=== PATIENT | male | born 1945 | race Caucasian/White ===

== ENCOUNTER → 2019-05-19 13:45 | Outpatient (CLI) | payer MEDICARE, OTHER, SELFPAY ==
[2019-05-19 13:19] VITALS: BMI 23.2
--- NOTE | 2019-05-19 13:47 | CT_ITS ---
STUDY: LOW DOSE CT LUNG CANCER SCREENING REASON FOR EXAM: Male, 74 years old. PT STATED SMOKER 3/4-1 PPD X 59 YEARS. RADIATION DOSAGE (If Supplied By Facility): CTDIvol = ( 2.55 ) mGy, DLP = ( 95.70 ) mGycm TECHNIQUE: No contrast was administered. Low dose technique was utilized (average mAS-38 and kVp 120). 1.25 mm axial source images with a slice interval of 1.25-mm were reconstructed in lung windows. 2.5 mm axial source images with a slice interval of 2.5-mm were reconstructed in lung windows. 5.0 mm axial source images with a slice interval of 5.0-mm were reconstructed in soft tissue windows. Nodule measured using lung windows on PACS and/or independent workstation with automated measurement of minimum and maximum diameter. Nodule measurement reported as average diameter rounded to the nearest whole number. Growth is defined as an increase ins size of greater than 1.5 mm. COMPARISON: None. NODULES: No suspicious nodules are seen. Emphysema: Hyperinflation. Emphysematous changes throughout both lungs worse in the upper lobes. Findings suggestive of a bilateral apical scarring more prominent on the right side. Mild linear scarring in the anterior left upper lobe. Mild increased linear markings at the lung bases slightly more prominent on the right side suggestive of scarring. Small bilateral pleural effusions. Endobronchial lesion: None Aorta: Atherosclerotic calcification. Coronary arteries: Coronary artery calcification. Other chest and abdominal findings: Moderate sized hiatal hernia. CT/Low Dose CT Lung Screening IMPRESSION: Lung-RADS category 2 - Continue annual screening with LDCT in 12 months. IMPORTANT NOTES FOR USE: ACR Lung-RADS Version 1.0 Assessment Categories Release Date: July 13, 2013 Category: Coded 0-4 bases on nodule(s) with highest degree of suspicion. Negative screen is defined as categories 1 and 2; a positive screen is defined as categories 3 and 4. Category 3 and 4A nodules that are unchanged on interval CT should be coded as category 2, and individuals returned to screening in 12 months. Category 4X: Category 3 or 4 nodules with additional imaging findings that increase the suspicion of lung cancer, such as spiculation, GGN that doubles in size in 1 year, enlarged lymph notes, etc. Category Modifiers: S (significant finding unrelated to lung cancer) and C (prior history of treated lung cancer) may be added to the 0-4 Lung-RADS Electronically Signed: Pierre Barron, at 14:17 EST , Service support ,
== END ==
PROVIDERS: PCP Family Medicine; Referring Provider Nurse Practitioner Family; Visit Provider Nurse Practitioner Family
DX: Z12.2 Encounter for screening for malignant neoplasm of respiratory organs (principal); Z87.891 Personal history of nicotine dependence
CPT/HCPCS: G0297

== ENCOUNTER → 2020-03-24 09:18 | Outpatient (CLI) | payer MEDICARE, OTHER, SELFPAY ==
[2019-05-19 13:19] VITALS: BMI 23.2
[2020-03-24 10:35] LABS: Absolute Neutrophil Count 6.1 X10^3/uL (2.0-7.7); Basophil# 0.08 X10^3/uL; Basophil% 0.9 % (0-1); Eosinophil# 0.61 X10^3/uL; Eosinophils% 6.9 % (0-5); Hematocrit 48.6 % (40-54); Hemoglobin 15.9 g/dL (13.0-16.5); Lymphocyte % 14.8 % (19-41); Mean Corp Hgb Conc 32.7 g/dL (32-36); Mean Corpuscular Hgb 31.1 pg (27.0-32.0); Mean Corpuscular Volume 94.9 fL (80-94); Monocyte# 0.66 X10^3/uL; Monocyte% 7.5 % (0-10); NRBC Flagged by Analyzer 0 % (0-5); Neutrophil # 6.11 X10^3/uL (2.7-7.7); Neutrophil % 69.6 % (47-70); Platelet Count 298 K/mm3 (150-450); RBC Distribution Width CV 13.6 % (11.6-14.6); RBC Distribution Width SD 47.6 fl (35.1-43.9); Red Blood Count 5.12 M/mm3 (4.6-6.2); White Blood Count 8.8 K/mm3 (4.4-11.0)
[2020-03-24 11:27] LABS: AST(SGOT) 15 U/L (15-37); Alanine Aminotransfer ALT/SGPT 28 U/L (16-61); Albumin, Serum 3.8 g/dL (3.2-5.0); Alkaline Phosphatase 93 U/L (45-117); Anion Gap 5 (5-15); BUN 13 mg/dL (7-18); Bilirubin, Direct 0.17 mg/dL (0.00-0.30); Chloride 107 mmol/L (98-107); Creatinine, Serum 0.87 mg/dL (0.70-1.30); EST Glomerular Filtration Rate 91 mL/min (>60); Est Glom Filt Rate - Afr Amer 111 mL/min (>60); Globulin 3.7 g/dL (2.2-4.2); Glucose 86 mg/dL (74-106); Potassium 3.7 mmol/L (3.5-5.1); Protein, Total 7.5 g/dL (6.4-8.2); Sodium Level 139 mmol/L (136-145)
[2020-03-29 07:07] LABS: QNTFERON TB Mitogen Value > 10.00 IU/mL (.); QNTFERON TB Nil Value 0.04 IU/mL (.); QNTFERON TB1+ Ag Value 0.07 IU/mL (.); QNTFERON TB2+ Ag Value 0.02 IU/mL (.)
[2020-03-29 16:16] LABS: QNTIFERON TB Positive Criteria Negative (Negative)
== END ==
PROVIDERS: PCP Family Medicine; Referring Provider Dermatology; Visit Provider Dermatology
DX: L30.8 Other specified dermatitis (principal); Z79.899 Other long term (current) drug therapy
CPT/HCPCS: 36415; 80048; 80076; 85025; 86480

== ENCOUNTER → 2020-06-21 14:47 | Outpatient (CLI) | payer MEDICARE, OTHER, SELFPAY ==
[2019-05-19 13:19] VITALS: BMI 23.2
[2020-06-21 14:19] VITALS: BMI 22.7
--- NOTE | 2020-06-21 14:50 | CT_ITS ---
STUDY: LOW DOSE CT LUNG CANCER SCREENING REASON FOR EXAM: Male, 75 years old. Lung cancer screening -- 43 pack year history; asymptomatic; current smoker RADIATION DOSAGE (If Supplied By Facility): CTDIvol = ( 2.38 ) mGy, DLP = ( 90.31 ) mGycm TECHNIQUE: No contrast was administered. Low dose technique was utilized (average mAS-38 and kVp 120). 1.25 mm axial source images with a slice interval of 1.25-mm were reconstructed in lung windows. 2.5 mm axial source images with a slice interval of 2.5-mm were reconstructed in lung windows. 5.0 mm axial source images with a slice interval of 5.0-mm were reconstructed in soft tissue windows. Nodule measured using lung windows on PACS and/or independent workstation with automated measurement of minimum and maximum diameter. Nodule measurement reported as average diameter rounded to the nearest whole number. Growth is defined as an increase ins size of greater than 1.5 mm. COMPARISON: 05/19/2019 NODULES: Lung windows show hyperexpanded lungs with chronic interstitial changes and emphysematous blebs throughout both lung [place]. There is stable nonspecific pleural thickening in both hemithoraces. There is no superimposed mass or nodule, no organized infiltrate or groundglass opacifications. There are calcified coronary vessels. No pleural or pericardial effusions. There degenerative bony changes Stable retrocardiac hiatal hernia No significant interval changes noted since the previous study CT/Low Dose CT Lung Screening IMPRESSION: Lung-RADS category 2 - Continue annual screening with LDCT in 12 months. IMPORTANT NOTES FOR USE: ACR Lung-RADS Version 1.1 Assessment Categories Release Date: 2018 Category: Coded 0-4 bases on nodule(s) with highest degree of suspicion. Negative screen is defined as categories 1 and 2; a positive screen is defined as categories 3 and 4. Category 3 and 4A nodules that are unchanged on interval CT should be coded as category 2, and individuals returned to screening in 12 months. Category 4X: Category 3 or 4 nodules with additional imaging findings that increase the suspicion of lung cancer, such as spiculation, GGN that doubles in size in 1 year, enlarged lymph notes, etc. Category Modifiers: S (significant finding unrelated to lung cancer) Electronically Signed: Tony Dukes MD at 15:24 EDT , Service support ,
== END ==
PROVIDERS: PCP Family Medicine; Referring Provider Nurse Practitioner Family; Visit Provider Nurse Practitioner Family
DX: Z12.2 Encounter for screening for malignant neoplasm of respiratory organs (principal); Z87.891 Personal history of nicotine dependence
CPT/HCPCS: 71271

== ENCOUNTER → 2020-06-22 08:52 | Outpatient (CLI) | payer MEDICARE, OTHER, SELFPAY ==
[2020-06-21 14:19] VITALS: BMI 22.7
[2020-06-22 10:19] LABS: Absolute Lymphocyte Count 0.88 X10^3/uL (0.83-4.51); Basophil# 0.07 X10^3/uL; Basophil% 1.2 % (0-1); Eosinophil# 0.27 X10^3/uL; Eosinophils% 4.7 % (0-5); Hematocrit 45.5 % (40-54); Hemoglobin 14.9 g/dL (13.0-16.5); Lymphocyte # 0.88 X10^3/ul (4.0); Lymphocyte % 15.3 % (19-41); Mean Corp Hgb Conc 32.7 g/dL (32-36); Mean Corpuscular Volume 97.8 fL (80-94); Mean Platelet Vol. 10.2 fl (6.2-12.0); Monocyte# 0.54 X10^3/uL; Monocyte% 9.4 % (0-10); NRBC Flagged by Analyzer 0 % (0-5); Neutrophil # 3.99 X10^3/uL (2.7-7.7); Neutrophil % 69.1 % (47-70); Platelet Count 262 K/mm3 (150-450); RBC Distribution Width CV 14.3 % (11.6-14.6); RBC Distribution Width SD 51.2 fl (35.1-43.9); Red Blood Count 4.65 M/mm3 (4.6-6.2); White Blood Count 5.8 K/mm3 (4.4-11.0)
[2020-06-22 10:46] LABS: AST(SGOT) 18 U/L (15-37); Alanine Aminotransfer ALT/SGPT 31 U/L (16-61); Albumin, Serum 3.6 g/dL (3.2-5.0); Alkaline Phosphatase 80 U/L (45-117); Anion Gap 3 (5-15); BUN 16 mg/dL (7-18); BUN/Creat Ratio 18.3 RATIO (10-20); Bilirubin, Direct 0.22 mg/dL (0.00-0.30); Chloride 107 mmol/L (98-107); Creatinine, Serum 0.87 mg/dL (0.70-1.30); EST Glomerular Filtration Rate 91 mL/min (>60); Est Glom Filt Rate - Afr Amer 110 mL/min (>60); Globulin 3.2 g/dL (2.2-4.2); Glucose 88 mg/dL (74-106); Potassium 3.7 mmol/L (3.5-5.1); Protein, Total 6.8 g/dL (6.4-8.2); Sodium Level 139 mmol/L (136-145)
== END ==
PROVIDERS: PCP Family Medicine; Referring Provider Dermatology; Visit Provider Dermatology
DX: L30.8 Other specified dermatitis (principal); Z79.899 Other long term (current) drug therapy
CPT/HCPCS: 36415; 80048; 80076; 85025

== ENCOUNTER → 2020-09-22 07:41 | Outpatient (CLI) | payer MEDICARE, OTHER, SELFPAY ==
[2020-06-21 14:19] VITALS: BMI 22.7
--- NOTE | 2020-09-22 07:42 | US_ITS ---
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 TECHNICAL QUALITY: Adequate. COMPARISON: None. FINDINGS: Liver: The liver measures 14.3 cm. There is normal echogenicity of the liver. The bile ducts are within normal limits. There is hepatic color flow. The direction of portal flow is hepatopetal. There is no demonstrated mass lesion. Gallbladder: Normal distended gallbladder. The gallbladder wall measures 2.7 mm. There is a negative sonographic Albarran''s sign. There is no pericholecystic fluid. There are multiple echogenic structures within the gallbladder, consistent with multiple tiny gallstones. The largest gallstone measures 9 mm x 10 mm x 3 mm. Common Bile Duct (C.B.D.): The common bile duct measures 5 mm. Pancreas: Normal size of the head, body and tail of the pancreas. There is normal echogenicity of the pancreas. There is no demonstrated pancreatic mass or cyst. Right Kidney: Normal size of the right kidney. The right kidney measures 12.5 cm x 5.6 cm x 6.8 cm. Normal renal cortex. The right cortex measures 1.7 cm. There is a 2.1 cm x 1.7 cm x 1.7 cm right renal cyst. There is no right hydronephrosis. IMPRESSION: Multiple small gallstones. Right renal cyst. Electronically Signed: Pierre Barron MD at 9:08 EDT , Service support , STUDY: ABDOMINAL ULTRASOUND - ELASTOGRAPHY REASON FOR VISIT: Male, 75 years old. Long-term METHOTREXATE use. TECHNIQUE: Liver stiffness measurements were obtained on a [employer] 85 ultrasound machine using a CA 1-7 probe following the SRU guidelines. 3 measurements were obtained using a 2-D-SWE method. The IQR/M was 23% suggesting a quality data set. TECHNICAL QUALITY: Adequate. COMPARISON: None. FINDINGS: Liver: There is no demonstrated mass lesion. Median liver stiffness measured 6 kPa. US/Elastography Parenchyma/Organ IMPRESSION: Liver stiffness measures 6 kPa compatible with F2 Metavir score. Electronically Signed: Pierre Barron MD at 9:11 EDT , Service support ,
--- NOTE | 2020-09-22 07:42 | US_ITS ---
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 TECHNICAL QUALITY: Adequate. COMPARISON: None. FINDINGS: Liver: The liver measures 14.3 cm. There is normal echogenicity of the liver. The bile ducts are within normal limits. There is hepatic color flow. The direction of portal flow is hepatopetal. There is no demonstrated mass lesion. Gallbladder: Normal distended gallbladder. The gallbladder wall measures 2.7 mm. There is a negative sonographic Albarran''s sign. There is no pericholecystic fluid. There are multiple echogenic structures within the gallbladder, consistent with multiple tiny gallstones. The largest gallstone measures 9 mm x 10 mm x 3 mm. Common Bile Duct (C.B.D.): The common bile duct measures 5 mm. Pancreas: Normal size of the head, body and tail of the pancreas. There is normal echogenicity of the pancreas. There is no demonstrated pancreatic mass or cyst. Right Kidney: Normal size of the right kidney. The right kidney measures 12.5 cm x 5.6 cm x 6.8 cm. Normal renal cortex. The right cortex measures 1.7 cm. There is a 2.1 cm x 1.7 cm x 1.7 cm right renal cyst. There is no right hydronephrosis. IMPRESSION: Multiple small gallstones. Right renal cyst. Electronically Signed: Pierre Barron MD at 9:08 EDT , Service support , STUDY: ABDOMINAL ULTRASOUND - ELASTOGRAPHY REASON FOR VISIT: Male, 75 years old. Long-term METHOTREXATE use. TECHNIQUE: Liver stiffness measurements were obtained on a [employer] 85 ultrasound machine using a CA 1-7 probe following the SRU guidelines. 3 measurements were obtained using a 2-D-SWE method. The IQR/M was 23% suggesting a quality data set. TECHNICAL QUALITY: Adequate. COMPARISON: None. FINDINGS: Liver: There is no demonstrated mass lesion. Median liver stiffness measured 6 kPa. US/Abdomen Limited IMPRESSION: Liver stiffness measures 6 kPa compatible with F2 Metavir score. Electronically Signed: Pierre Barron MD at 9:11 EDT , Service support ,
== END ==
PROVIDERS: PCP Family Medicine; Referring Provider Internal Medicine Gastroenterology; Visit Provider Internal Medicine Gastroenterology
DX: Z79.899 Other long term (current) drug therapy (principal)
CPT/HCPCS: 76705; 76981

== ENCOUNTER → 2020-09-26 10:01 | Outpatient (CLI) | payer MEDICARE, OTHER, SELFPAY ==
[2020-06-21 14:19] VITALS: BMI 22.7
[2020-09-26 12:54] LABS: Absolute Lymphocyte Count 0.86 X10^3/uL (0.83-4.51); Basophil# 0.07 X10^3/uL; Basophil% 0.6 % (0-1); Eosinophil# 0.46 X10^3/uL; Eosinophils% 4.1 % (0-5); Hematocrit 46.8 % (40-54); Hemoglobin 15.4 g/dL (13.0-16.5); Lymphocyte # 0.86 X10^3/ul (0.83-4.51); Lymphocyte % 7.7 % (19-41); Mean Corp Hgb Conc 32.9 g/dL (32-36); Mean Corpuscular Hgb 31.4 pg (27.0-32.0); Mean Corpuscular Volume 95.5 fL (80-94); Mean Platelet Vol. 10.9 fl (6.2-12.0); Monocyte# 0.69 X10^3/uL; Monocyte% 6.2 % (0-10); NRBC Flagged by Analyzer 0 % (0-5); Neutrophil # 9.03 X10^3/uL (2.7-7.7); Neutrophil % 81.1 % (47-70); Platelet Count 265 K/mm3 (150-450); RBC Distribution Width CV 13.8 % (11.6-14.6); RBC Distribution Width SD 47.9 fl (35.1-43.9); White Blood Count 11.1 K/mm3 (4.4-11.0)
[2020-09-26 13:33] LABS: AST(SGOT) 14 U/L (15-37); Alanine Aminotransfer ALT/SGPT 26 U/L (16-61); Albumin, Serum 3.5 g/dL (3.2-5.0); Alkaline Phosphatase 93 U/L (45-117); Anion Gap 7 (5-15); BUN 15 mg/dL (7-18); BUN/Creat Ratio 14.7 RATIO (10-20); Bilirubin, Direct 0.25 mg/dL (0.00-0.30); Calcium,Total 8.8 mg/dL (8.5-10.1); Chloride 103 mmol/L (98-107); Creatinine, Serum 1.02 mg/dL (0.70-1.30); EST Glomerular Filtration Rate 76 mL/min (>60); Est Glom Filt Rate - Afr Amer 92 mL/min (>60); Globulin 3.4 g/dL (2.2-4.2); Glucose 153 mg/dL (74-106); Potassium 3.8 mmol/L (3.5-5.1); Protein, Total 6.9 g/dL (6.4-8.2); Sodium Level 139 mmol/L (136-145)
== END ==
PROVIDERS: PCP Family Medicine; Referring Provider Dermatology; Visit Provider Dermatology
DX: L30.8 Other specified dermatitis (principal); Z79.899 Other long term (current) drug therapy
CPT/HCPCS: 36415; 80048; 80076; 85025

== ENCOUNTER → 2020-12-28 10:00 | Outpatient (CLI) | payer MEDICARE, OTHER, SELFPAY ==
[2020-12-28 12:14] LABS: Absolute Lymphocyte Count 1.03 X10^3/uL (0.83-4.51); Absolute Neutrophil Count 5.7 X10^3/uL (2.0-7.7); Basophil# 0.06 X10^3/uL; Basophil% 0.8 % (0-1); Eosinophil# 0.56 X10^3/uL; Eosinophils% 7.1 % (0-5); Hematocrit 45.5 % (40-54); Hemoglobin 15.3 g/dL (13.0-16.5); Lymphocyte # 1.03 X10^3/ul (0.83-4.51); Lymphocyte % 13.1 % (19-41); Mean Corp Hgb Conc 33.6 g/dL (32-36); Mean Corpuscular Hgb 31.9 pg (27.0-32.0); Mean Platelet Vol. 10.5 fl (6.2-12.0); Monocyte# 0.53 X10^3/uL; Monocyte% 6.7 % (0-10); NRBC Flagged by Analyzer 0 % (0-5); Neutrophil # 5.67 X10^3/uL (2.7-7.7); Neutrophil % 71.8 % (47-70); Platelet Count 246 K/mm3 (150-450); RBC Distribution Width CV 14.1 % (11.6-14.6); RBC Distribution Width SD 48.4 fl (35.1-43.9); Red Blood Count 4.79 M/mm3 (4.6-6.2); White Blood Count 7.9 K/mm3 (4.4-11.0)
[2020-12-28 12:33] LABS: AST(SGOT) 14 U/L (15-37); Alanine Aminotransfer ALT/SGPT 28 U/L (16-61); Albumin, Serum 3.5 g/dL (3.2-5.0); Alkaline Phosphatase 76 U/L (45-117); Anion Gap 5 (5-15); BUN 18 mg/dL (7-18); BUN/Creat Ratio 17.6 RATIO (10-20); Bilirubin, Direct 0.23 mg/dL (0.00-0.30); Chloride 105 mmol/L (98-107); Creatinine, Serum 1.02 mg/dL (0.70-1.30); EST Glomerular Filtration Rate 76 mL/min (>60); Est Glom Filt Rate - Afr Amer 91 mL/min (>60); Globulin 3.4 g/dL (2.2-4.2); Glucose 130 mg/dL (74-106); Potassium 4.2 mmol/L (3.5-5.1); Protein, Total 6.9 g/dL (6.4-8.2); Sodium Level 140 mmol/L (136-145)
== END ==
PROVIDERS: PCP Family Medicine; Referring Provider Dermatology; Visit Provider Dermatology
DX: L20.84 Intrinsic (allergic) eczema (principal); L28.0 Lichen simplex chronicus; Z79.899 Other long term (current) drug therapy
CPT/HCPCS: 36415; 80048; 80076; 85025

== ENCOUNTER 2021-04-06 09:20 | Outpatient (CLI) | payer MEDICARE, OTHER, SELFPAY ==
[2021-04-06 10:06] LABS: Absolute Lymphocyte Count 1.24 X10^3/uL (0.83-4.51); Absolute Neutrophil Count 6.8 X10^3/uL (2.0-7.7); Basophil% 1.1 % (0-1); Eosinophil# 0.45 X10^3/uL; Eosinophils% 4.8 % (0-5); Hematocrit 45.9 % (40-54); Hemoglobin 15.3 g/dL (13.0-16.5); Lymphocyte # 1.24 X10^3/ul (0.83-4.51); Lymphocyte % 13.1 % (19-41); Mean Corp Hgb Conc 33.3 g/dL (32-36); Mean Corpuscular Hgb 31.7 pg (27.0-32.0); Mean Corpuscular Volume 95.2 fL (80-94); Mean Platelet Vol. 9.7 fl (6.2-12.0); Monocyte# 0.81 X10^3/uL; Monocyte% 8.6 % (0-10); NRBC Flagged by Analyzer 0 % (0-5); Platelet Count 273 K/mm3 (150-450); RBC Distribution Width CV 13.7 % (11.6-14.6); RBC Distribution Width SD 47.7 fl (35.1-43.9); Red Blood Count 4.82 M/mm3 (4.6-6.2); White Blood Count 9.4 K/mm3 (4.4-11.0)
[2021-04-06 10:52] LABS: AST(SGOT) 20 U/L (15-37); Alanine Aminotransfer ALT/SGPT 37 U/L (16-61); Albumin, Serum 3.8 g/dL (3.2-5.0); Alkaline Phosphatase 81 U/L (45-117); Anion Gap 3 (5-15); BUN 12 mg/dL (7-18); BUN/Creat Ratio 13.7 RATIO (10-20); Bilirubin, Direct 0.19 mg/dL (0.00-0.30); Calcium,Total 9.3 mg/dL (8.5-10.1); Chloride 107 mmol/L (98-107); Creatinine, Serum 0.87 mg/dL (0.70-1.30); EST Glomerular Filtration Rate 90 mL/min (>60); Est Glom Filt Rate - Afr Amer 109 mL/min (>60); Globulin 3.4 g/dL (2.2-4.2); Glucose 86 mg/dL (74-106); Potassium 4.1 mmol/L (3.5-5.1); Protein, Total 7.2 g/dL (6.4-8.2); Sodium Level 139 mmol/L (136-145)
== END 2021-04-06 23:59 | disposition short-term general hospital (02) ==
LOC: MTLAB 09:22
PROVIDERS: PCP Family Medicine; Referring Provider Dermatology; Visit Provider Dermatology
DX: Z79.899 Other long term (current) drug therapy (principal); L20.84 Intrinsic (allergic) eczema; L28.0 Lichen simplex chronicus
CPT/HCPCS: 36415; 80048; 80076; 85025

== ENCOUNTER → 2021-07-11 | Outpatient (CLI) | payer MEDICARE, OTHER, SELFPAY ==
--- NOTE | 2021-07-11 15:00 | CT_ITS ---
STUDY: CT CHEST WITHOUT CONTRAST- LOW DOSE SCREENING PROTOCOL REASON FOR EXAM: Male, 76 years old. Current smoker. 30 pack per year history. No current symptoms of lung cancer or pulmonary infection. Shared decision-making with referring PCP documented in patient''s record. RADIATION DOSAGE (If Supplied By Facility): CTDIvol = ( 2.01 ) mGy, DLP = ( 74.49 ) mGycm TECHNIQUE: Low dose screening CT examination performed from the base of the neck to the upper abdomen. Sagittal and coronal reformatted images performed. Sagittal and coronal MIP images provided. The measurements provided are average, rounded measurements per ACR guidelines. COMPARISON: 06/21/2020 FINDINGS: Mild bilateral apical scarring. Mild emphysema. No noncalcified nodule or mass. 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 Normal heart and pericardium. There are calcifications of the coronary arteries. Moderate hiatal hernia. Normal hilar regions. Normal unenhanced pulmonary arteries. There is atherosclerotic calcification of the aortic arch with tortuosity and elongation of the aortic arch and descending thoracic aorta. 4.2 cm aneurysm of the ascending aorta likely from chronic hypertension or aortic stenosis. Normal osseous structures. Mild left renal atrophy. CT/Low Dose CT Lung Screening IMPRESSION: 1. No significant indeterminate incidental findings requiring additional imaging. 2. Incidental findings include 4.2 cm aneurysm of the ascending aorta likely from chronic hypertension or aortic stenosis.. ASSESSMENT CATEGORY: LungRADS 1 - Negative. Continue annual screening with LDCT in 12 months, per established ACR guidelines. Electronically Signed: Aron Fields MD at 15:35 EDT ,
== END | disposition home or self-care (01) ==
LOC: CT 14:54
PROVIDERS: PCP Family Medicine; Visit Provider Nurse Practitioner Family
DX: Z87.891 Personal history of nicotine dependence (principal); Z12.2 Encounter for screening for malignant neoplasm of respiratory organs
CPT/HCPCS: 71271

== ENCOUNTER → 2021-11-01 | Outpatient (CLI) | payer MEDICARE, OTHER, SELFPAY ==
--- NOTE | 2021-11-01 07:19 | ECHOD_ITS ---
Reason For Study: Dyspnea/SOB Procedure This was a 2D Doppler, Color Flow transthoracic echocardiogram. The study was technically difficult. The study was technically limited. Limited views were obtained. Definity allergy, Definity deferred. Left Ventricle Normal LV size. Left ventricular systolic function is normal. The estimated ejection fraction is 55 %. No regional wall motion abnormalities noted. Right Ventricle Normal RV size. Normal systolic function. Atria Normal left atrium. Normal right atrium. Mitral Valve Normal mitral valve. Tricuspid Valve Normal tricuspid valve. Aortic Valve Trisinus/trileaflet aortic valve. Mild focal aortic valve thickening. Pulmonic Valve Normal pulmonic valve. Great Vessels Moderately dilated aortic root. The pulmonary artery is normal size. Normal inferior vena cava. Pericardium/Pleural No pericardial effusion. MMode/2D Measurements & Calculations LVIDd: 4.8 cm IVSd: 0.83 cm LVOT diam: 2.0 cm LVIDs: 3.2 cm LVPWd: 0.78 cm LVOT area: 3.0 cm2 RVDd: 3.8 cm FS: 32.2 % Ao root diam: 4.6 cm Aortic Valve Planimetry: 1.5 cm2 ACS: 1.3 cm LA dimension: 2.7 cm Time Measurements MV dec time: 0.30 sec Doppler Measurements & Calculations MV E max ranjeet: 58.3 cm/sec Lat Peak E' Ranjeet: 9.0 cm/sec Med Peak E' Ranjeet: 8.5 cm/sec MV A max ranjeet: 75.6 cm/sec E/E' lat: 6.5 E/E' med: 6.8 MV E/A: 0.77 PA V2 max: 84.8 cm/sec ECHO/Echo Complete Interpretation Summary Normal LV size. Left ventricular systolic function is normal. The estimated ejection fraction is 55 %. Moderately dilated aortic root. Mild focal aortic valve thickening. Ordering Physician: Fazal Pal Referring Physician: Fazal Pal Performed By: Emery Liriano RCS
--- NOTE | 2021-11-01 19:56 | STRESSREP_ITS ---
Stress Test Report Pharmacologic myocardial perfusion stress test. 76-year-old man with a history of dyspnea. Stress protocol: Resting EKG demonstrates sinus rhythm with a rate of 64 bpm right bundle branch block is noted. Resting blood pressure is 124/70 mmHg. 0.4 mg of regadenoson was infused per usual protocol followed by rapid intravenous saline flush i njection continuous EKG monitoring was performed. The maximum heart rate attained was 87 bpm which was 60% of max impacted heart rate the maximum workload was 1 metabolic equivalent. At rest there were no ST or T wave changes noted to suggest abnormal flow reserve and at peak infusion nonspecific changes were noted with did not meet the criteria for ischemia. The peak blood pressure was 138/60 mmHg. Myocardial perfusion protocol. 11.4 mCi of technetium 99m sestamibi was injected at rest. 0.4 mg of regadenoson was infused per usual protocol. At peak infusion 33.5 mCi of technetium 99m sestamibi was injected stress images were obtained and stress and rest images were reconstructed and compared in the short axis vertical long and horizontal long axis. Gated images were also obtained. Perfusion SPECT analysis: Review of the stress images demonstrate normal uptake of tracer noted in all areas of the myocardium. The resting images similar demonstrate normal uptake of tracer noted in all areas of the myocardium. No areas of reversibility are noted to suggest ischemia and no previous infarct is noted. Gated SPECT analysis: The gated ejection fraction is 68%. Conclusion: Normal pharmacologic myocardial perfusion stress test. Preserved ejection fraction.
== END | disposition home or self-care (01) ==
LOC: CVS 07:18
PROVIDERS: PCP Family Medicine; Referring Provider Internal Medicine Cardiovascular Disease; Visit Provider Internal Medicine Cardiovascular Disease
DX: R06.02 Shortness of breath (principal); I71.2 Thoracic aortic aneurysm, without rupture
CPT/HCPCS: 78452; 93017; 93306; A9500; A4216; J2785

== ENCOUNTER → 2021-12-04 | Outpatient (CLI) | payer MEDICARE, OTHER, SELFPAY | END | disposition home or self-care (01) | LOC: SL 20:08 | PROVIDERS: PCP Family Medicine; Referring Provider Internal Medicine Critical Care Medicine; Visit Provider Internal Medicine Critical Care Medicine | DX: G47.33 Obstructive sleep apnea (adult) (pediatric) (principal) | CPT/HCPCS: 95810 ==

== ENCOUNTER → 2022-01-03 | Outpatient (CLI) | payer MEDICARE, OTHER, SELFPAY | END | disposition home or self-care (01) | LOC: SL 14:18 | PROVIDERS: PCP Family Medicine; Visit Provider Nurse Practitioner Acute Care | DX: Z00.00 Encounter for general adult medical examination without abnormal findings (principal) ==

== ENCOUNTER → 2022-02-12 | Outpatient (CLI) | payer MEDICARE, OTHER, SELFPAY ==
--- NOTE | 2022-02-13 05:43 | PFTCOMP_ITS ---
COMPLETE PULMONARY FUNCTION TEST INTERPRETATION Brief HPI: Patient is a 76-year-old male, currently under the care of myself, who presents to [facility] [place] for complete pulmonary function tests secondary to diagnosis of dyspnea. Respiratory therapist reports good effort and reproducible results. Interpretation: Forced expiration spirometry shows a moderate large airways obstructive ventilatory defect with an FEV1 of 66% predicted. There is no significant bronchodilator response by strict ATS criteria. Spirograms are of good quality and plateau slowly, indicating slowly emptying areas of the lungs. The respiratory flow volume loop shows decreased expiratory flow rates at all lung volumes consistent with airway obstruction. Lung volumes by body plethysmography show a normal total lung capacity at 7.15 L, 116% predicted. All other lung volumes are increased symmetrically. Diffusion capacity by carbon monoxide is normal at 77% predicted. The airway resistance is elevated. No previous pulmonary function tests were available for review. Impression: Irreversible moderate large airways obstructive ventilatory defect resulting in elevated lung volumes, and a pattern consistent with chronic bronchitis.
== END | disposition home or self-care (01) ==
LOC: PSN 09:12
PROVIDERS: PCP Family Medicine; Referring Provider Internal Medicine Critical Care Medicine; Visit Provider Internal Medicine Critical Care Medicine
DX: R06.02 Shortness of breath (principal)
CPT/HCPCS: 94060; 94726; 94729

== ENCOUNTER → 2022-02-14 | Outpatient (CLI) | payer MEDICARE, OTHER, SELFPAY ==
[2022-02-14 12:30] VITALS: PULSE 102; PULSE 104; PULSE 106; PULSE 94; PULSE 97; O2SAT 90; O2SAT 91; O2SAT 92; O2SAT 93; O2SAT 94; O2SAT 955
--- NOTE | 2022-02-16 10:52 | PCM.PSN.6M ---
PSN 6 Minute Walk Test 6 Minute Walk Test 6 Minute Walk Test: 6 Minute Walk Test PSN:6-Minute Walk Test Start: 02/14/22 12:50 Freq: Status: Active Protocol: [id number] Document 02/14/22 12:30 EW (Rec: 02/14/22 12:54 EW [id number]) 6 Minute Walk Test Date Performed 02/14/22 Time Performed 12:30 Height 5 ft 9 in Weight: 145 lb Weight in Pounds 145.[address]: Aj Garza Assistive device used: None Pre-test Oxygen Delivery Method Room Air Pulse Ox (%) 94 Pulse Rate (60-100 beats/min) 94 Dyspnea Bala Scale (0-10) 3 Exertion Bala Scale (6-20) 11 1st minute Oxygen Delivery Method Room Air Pulse Ox (%) 92 Pulse Rate (60-100 beats/min) 102 H 2nd minute Oxygen Delivery Method Room Air Pulse Ox (%) 90 Pulse Rate (60-100 beats/min) 106 H 3rd minute Oxygen Delivery Method Room Air Pulse Ox (%) 93 Pulse Rate (60-100 beats/min) 104 H Reported Symptoms Increased Work of Breathing 4th minute Oxygen Delivery Method Room Air Pulse Ox (%) 91 Pulse Rate (60-100 beats/min) 104 H Reported Symptoms Increased Work of Breathing 5th minute Oxygen Delivery Method Room Air Pulse Ox (%) 94 Pulse Rate (60-100 beats/min) 106 H Reported Symptoms Increased Work of Breathing 6th minute Oxygen Delivery Method Room Air Pulse Ox (%) 92 Pulse Rate (60-100 beats/min) 106 H Reported Symptoms Increased Work of Breathing Post-test Oxygen Delivery Method Room Air Pulse Ox (%) 955 Pulse Rate (60-100 beats/min) 97 Dyspnea Bala Scale (0-10) 4 Exertion Bala Scale (6-20) 14 Full Laps Walked 15 Partial Lap, Number of Tiles Walked 0 Total Distance Walked (ft) 885 Interpretation Interpretation: The patient ambulated 885 feet over the course of 6 minutes beginning on room air without assistive devices. Pretesting oxygen saturation was noted to be 94% on room air. With ambulation, the joe oxygen saturation was 90%. There was no significant exertional oxygen desaturation. Recommendations Recommendations: There is no indication for the use of supplemental oxygen at this time.
== END | disposition home or self-care (01) ==
LOC: PSN 12:18
PROVIDERS: PCP Family Medicine; Visit Provider Internal Medicine Critical Care Medicine
DX: R06.02 Shortness of breath (principal)
CPT/HCPCS: 94618

== ENCOUNTER → 2022-03-06 | Outpatient (CLI) | payer MEDICARE, OTHER, SELFPAY | END | disposition home or self-care (01) | PROVIDERS: PCP Family Medicine; Visit Provider Internal Medicine Critical Care Medicine | DX: G47.33 Obstructive sleep apnea (adult) (pediatric) (principal) | CPT/HCPCS: 95811 ==

== ENCOUNTER → 2022-04-10 | Outpatient (CLI) | payer MEDICARE, OTHER, SELFPAY | END | disposition home or self-care (01) | LOC: SL 15:11 | PROVIDERS: PCP Family Medicine; Visit Provider Nurse Practitioner Acute Care | DX: Z00.00 Encounter for general adult medical examination without abnormal findings (principal) ==

== ENCOUNTER → 2022-09-20 | Outpatient (CLI) | payer MEDICARE, OTHER, SELFPAY ==
--- NOTE | 2022-09-20 15:31 | CT_ITS ---
EXAM: CT CHEST, LUNG CANCER SCREENING WITHOUT INTRAVENOUS CONTRAST CLINICAL INDICATION: smoking. 1 PPD X 62 YEARS . COPD TECHNIQUE: Helically acquired images were obtained of the chest without intravenous contrast using low dose (LDCT) lung cancer screening protocol. This CT exam was performed using one or more of the following dose reduction techniques: automated exposure control, adjustment of the mA and/or kV according to patient size, and/or use of iterative reconstruction technique. COMPARISON: 07/11/2021 FINDINGS: LUNGS AND PLEURAL SPACES: There is minimal scarring and emphysematous changes. There is a pleural-based density in the superior segment of the right lower lobe that measures 7 mm seen on series 2 image 25. There are pleural calcifications in the lung bases that may represent asbestos related pleural disease. There is minimal atelectasis. No mass. No pneumothorax. HEART: Unremarkable. Heart size is normal. No pericardial effusion. No significant coronary artery calcifications. MEDIASTINUM: There is a moderate size hiatal hernia. No mediastinal or hilar adenopathy. Esophagus is unremarkable. THYROID: Unremarkable. No thyroid lesions. BONES/JOINTS: Unremarkable. No suspicious lytic or blastic abnormality. VASCULATURE: Unremarkable. Thoracic aorta is non-dilated. LYMPH NODES: Unremarkable. No enlarged lymph nodes. CT/Low Dose CT Lung Screening IMPRESSION: 1. Emphysematous changes in the lung apices. 2. Small pleural-based nodule in the left lower lobe. There is bibasilar atelectasis. Lung-RADS score: 2 - Benign Appearance or Behavior. Recommend continued annual screening with a low-dose CT (LDCT) in 12 months. 3. Pleural calcifications in the lung bases which may represent asbestos related pleural disease. Electronically Signed: Mookie Malave MD at 16:15 EDT ,
== END | disposition home or self-care (01) ==
LOC: CT 15:27
PROVIDERS: PCP Family Medicine; Referring Provider Nurse Practitioner Acute Care; Visit Provider Nurse Practitioner Acute Care
DX: F17.210 Nicotine dependence, cigarettes, uncomplicated (principal); Z12.2 Encounter for screening for malignant neoplasm of respiratory organs
CPT/HCPCS: 71271

== ENCOUNTER → 2022-10-29 | Outpatient (CLI) | payer MEDICARE, OTHER, SELFPAY ==
--- NOTE | 2022-10-29 16:00 | CT_ITS ---
STUDY: CTA CHEST REASON FOR EXAM: Male, 77 years old. Ascending aortic aneurysm RADIATION DOSAGE (If Supplied By Facility): CTDIvol = ( 8.16 ) mGy, DLP = ( 304.90 ) mGycm TECHNIQUE: The examination was performed with the intravenous administration of IV 100mL Isovue-370. Post-processing of the angiographic images was performed, with multiplanar reformation and 3D reconstruction. Individualized dose optimization techniques were used for this CT. COMPARISON: Comparison is made with prior examination of September 20, 2022. FINDINGS: Normal enhancement of the main pulmonary artery and right and left pulmonary arteries. Normal enhancement of the bilateral peripheral pulmonary arteries. There is no demonstrated pulmonary embolism. There is aneurysmal dilatation of the ascending aorta. The transverse diameter of the ascending aorta measures 40.7 mm''s. There is no demonstrated aortic dissection. There are calcifications of the coronary arteries. Normal mediastinum. Normal hilar regions. Normal visualized trachea and bronchi. Hyperinflation Emphysematous changes more pronounced in the upper lobes. Mild linear scarring at the lung bases. Bilateral apical scarring. Pleural plaque calcifications are seen bilaterally. Normal chest wall structures. There are degenerative changes of thoracic spine. Air-fluid level is seen in the esophagus. Moderate-sized hiatal hernia. CT/CTA Chest W/WO Contrast IMPRESSION: Mildly dilated ascending thoracic aorta with a transverse dimension of 40.7 mm. Hyperinflation and emphysematous changes. Pleural plaque calcification. Electronically Signed: Pierre Barron MD at 11:02 EDT ,
[2022-10-29 16:29] LABS: EGFR FINGERSTICK > 60.0000 mL/min (>60)
== END | disposition home or self-care (01) ==
LOC: CT 15:56
PROVIDERS: PCP Family Medicine; Referring Provider Nurse Practitioner Gerontology; Visit Provider Nurse Practitioner Gerontology
DX: I71.21 Aneurysm of the ascending aorta, without rupture (principal)
CPT/HCPCS: 71275; Q9967

== ENCOUNTER → 2023-09-23 | Outpatient (CLI) | payer MEDICARE, OTHER, SELFPAY ==
--- NOTE | 2023-09-23 17:02 | CT_ITS ---
STUDY: LOW DOSE CT LUNG CANCER SCREENING REASON FOR EXAM: Male, 78 years old. Current smoker. Patient smokes 1 pack per day for 63 years. COPD. RADIATION DOSAGE (If Supplied By Facility): CTDIvol = ( 3.02 ) mGy, DLP = ( 115.13 ) mGycm TECHNIQUE: No contrast was administered. Low dose technique was utilized (average mAS-38 and kVp 120). 1.25 mm axial source images with a slice interval of 1.25-mm were reconstructed in lung windows. 2.5 mm axial source images with a slice interval of 2.5-mm were reconstructed in lung windows. 5.0 mm axial source images with a slice interval of 5.0-mm were reconstructed in soft tissue windows. COMPARISON: None. NODULES: No suspicious nodule is seen. Emphysema: Hyperinflation. Emphysematous changes more prominent in the upper lobes. Stable heterogeneous scarring in both upper lobes more prominent in the left lung apex. Stable scarring in the superior segment of the right lower lobe. Mild degree of pleural thickening at the lung bases with underlying scarring. Pleural plaque calcification at the lung bases. Endobronchial lesion: None Aorta: Atherosclerotic plaque formation of the aortic arch and descending thoracic aorta. CORONARY ARTERIES: Coronary artery calcification is seen. Heart: Unremarkable Pulmonary artery: Unremarkable Mediastinal nodes: Small mediastinal lymph nodes. Other chest and abdominal findings: CT/Low Dose CT Lung Screening IMPRESSION: Lung-RADS category 2 - Continue annual screening with LDCT in 12 months. IMPORTANT NOTES FOR USE: ACR Lung-RADS Version 1.1 Assessment Categories Release Date: 2018 Category: Coded 0-4 bases on nodule(s) with highest degree of suspicion. Negative screen is defined as categories 1 and 2; a positive screen is defined as categories 3 and 4. Category 3 and 4A nodules that are unchanged on interval CT should be coded as category 2, and individuals returned to screening in 12 months. Category 4X: Category 3 or 4 nodules with additional imaging findings that increase the suspicion of lung cancer, such as spiculation, GGN that doubles in size in 1 year, enlarged lymph notes, etc. Category Modifiers: S (significant finding unrelated to lung cancer) Electronically Signed: Pierre Barron MD at 14:40 EDT ,
== END | disposition home or self-care (01) ==
LOC: CT 17:02
PROVIDERS: PCP Internal Medicine; Referring Provider Nurse Practitioner Acute Care; Visit Provider Nurse Practitioner Acute Care
DX: F17.210 Nicotine dependence, cigarettes, uncomplicated (principal)
CPT/HCPCS: 71271

== ENCOUNTER → 2023-11-20 | Outpatient (CLI) | payer MEDICARE, OTHER, SELFPAY ==
[2023-11-20 12:16] LABS: Absolute Lymphocyte Count 1.47 X10^3/uL (0.83-4.51); Absolute Neutrophil Count 6.4 X10^3/uL (2.0-7.7); Basophil# 0.09 X10^3/uL; Eosinophil# 0.23 X10^3/uL; Eosinophils% 2.6 % (0-5); Hematocrit 51.2 % (40-54); Hemoglobin 16.6 g/dL (13.0-16.5); Lymphocyte # 1.47 X10^3/ul (0.83-4.51); Lymphocyte % 16.5 % (19-41); Mean Corp Hgb Conc 32.4 g/dL (32-36); Mean Corpuscular Hgb 30.9 pg (27.0-32.0); Mean Corpuscular Volume 95.2 fL (80-94); Mean Platelet Vol. 10.9 fl (6.2-12.0); Monocyte# 0.73 X10^3/uL; Monocyte% 8.2 % (0-10); NRBC Flagged by Analyzer 0.2 % (0-5); Neutrophil # 6.35 X10^3/uL (2.7-7.7); Neutrophil % 71.1 % (47-70); Platelet Count 243 K/mm3 (150-450); RBC Distribution Width CV 13.2 % (11.6-14.6); RBC Distribution Width SD 46.4 fl (35.1-43.9); Red Blood Count 5.38 M/mm3 (4.6-6.2); White Blood Count 8.9 K/mm3 (4.4-11.0)
[2023-11-20 12:44] LABS: ALB/GLOB Ratio 1.1 RATIO (0.9-2.4); AST(SGOT) 17 U/L (15-37); Alanine Aminotransfer ALT/SGPT 35 U/L (16-61); Albumin, Serum 3.8 g/dL (3.2-5.0); Alkaline Phosphatase 78 U/L (45-117); Anion Gap 6 (5-15); BUN 16 mg/dL (7-18); BUN/Creat Ratio 15.2 RATIO (10-20); Calcium,Total 9.5 mg/dL (8.5-10.1); Chloride 107 mmol/L (98-107); Cholesterol 168 mg/dL (200); Creatinine, Serum 1.05 mg/dL (0.70-1.30); EST Glomerular Filtration Rate 73 mL/min (>60); Est Glom Filt Rate - Afr Amer 88 mL/min (>60); Globulin 3.6 g/dL (2.2-4.2); Glucose 90 mg/dL (74-106); High Density Lipoprotein 62 mg/dL; Protein, Total 7.4 g/dL (6.4-8.2); Sodium Level 138 mmol/L (136-145); Triglycerides 101 mg/dL; Very Low Density Lipoprotein 20 mg/dL (5-40)
[2023-11-20 12:57] LABS: Vitamin D,25 Hydroxy 70.2 ng/mL
== END | disposition home or self-care (01) ==
LOC: BIMLAB 08:58
PROVIDERS: Physician Assistant; PCP Internal Medicine; Visit Provider Internal Medicine
DX: E78.5 Hyperlipidemia, unspecified (principal); E55.9 Vitamin D deficiency, unspecified; I10 Essential (primary) hypertension
CPT/HCPCS: 36415; 80053; 80061; 82306; 85025

== ENCOUNTER → 2024-05-27 | Outpatient (CLI) | payer MEDICARE, OTHER, SELFPAY ==
[2024-05-27 12:23] LABS: Absolute Lymphocyte Count 1.38 X10^3/uL (0.83-4.51); Absolute Neutrophil Count 4.3 X10^3/uL (2.0-7.7); Basophil# 0.06 X10^3/uL; Basophil% 0.9 % (0-1); Eosinophil# 0.19 X10^3/uL; Eosinophils% 2.9 % (0-5); Hematocrit 46.7 % (40-54); Hemoglobin 15.4 g/dL (13.0-16.5); Lymphocyte # 1.38 X10^3/ul (0.83-4.51); Lymphocyte % 20.8 % (19-41); Mean Corpuscular Hgb 29.8 pg (27.0-32.0); Mean Corpuscular Volume 90.3 fL (80-94); Monocyte# 0.68 X10^3/uL; Monocyte% 10.2 % (0-10); NRBC Flagged by Analyzer 0 % (0-5); Neutrophil # 4.32 X10^3/uL (2.7-7.7); Neutrophil % 64.9 % (47-70); Platelet Count 264 K/mm3 (150-450); RBC Distribution Width CV 13.7 % (11.6-14.6); RBC Distribution Width SD 45.4 fl (35.1-43.9); Red Blood Count 5.17 M/mm3 (4.6-6.2); White Blood Count 6.7 K/mm3 (4.4-11.0)
[2024-05-27 12:51] LABS: ALB/GLOB Ratio 1.3 RATIO (0.9-2.4); AST(SGOT) 18 U/L (<=37); Alanine Aminotransfer ALT/SGPT 14 U/L (<=46); Albumin, Serum 4.2 g/dL (3.4-4.8); Alkaline Phosphatase 81 U/L (40-129); Anion Gap 11 (5-15); BUN 16 mg/dL (4-19); BUN/Creat Ratio 18.7 RATIO (10-20); Calcium,Total 9.9 mg/dL (7.6-11.0); Carbon Dioxide 23.4 mmol/L (21.0-32.0); Chloride 109 mmol/L (98-108); Cholesterol 149 mg/dL (<=200); Creatinine, Serum 0.85 mg/dL (0.70-1.20); EST Glomerular Filtration Rate 88 (>60); Globulin 3.1 g/dL (2.2-4.2); Glucose 95 mg/dL (70-99); High Density Lipoprotein 65 mg/dL; Low Density Lipoprotein Calc. 72 mg/dL; Potassium 4.9 mmol/L (3.3-5.1); Protein, Total 7.3 g/dL (5.9-8.4); Sodium Level 143 mmol/L (133-145); Total Bilirubin 0.44 mg/dL (0.00-1.30); Triglycerides 59 mg/dL; Very Low Density Lipoprotein 12 mg/dL (5-40); cholesterol:hdl ratio screen 2.28
== END | disposition home or self-care (01) ==
LOC: BIMLAB 09:24
PROVIDERS: PCP Internal Medicine; Referring Provider Physician Assistant; Visit Provider Physician Assistant
DX: I10 Essential (primary) hypertension (principal); E78.5 Hyperlipidemia, unspecified
CPT/HCPCS: 36415; 80053; 80061; 85025

== ENCOUNTER 2024-06-27 19:07 | Inpatient (IN) | payer MEDICARE, OTHER, SELFPAY ==
[2024-06-27] VITALS (9 sets, daily range): BP systolic 156–177; BP diastolic 39–78; PULSE 39–52; RESP 16–28; TEMP 36.4–36.7; O2SAT 93–100; BMI 23.9; BMI 23.2
--- NOTE | 2024-06-27 19:20 | EKG12_ITS ---
Test Reason : 3RD DEG BLOCK Blood Pressure : */* mmHG Vent. Rate : 43 BPM Atrial Rate : 49 BPM P-R Int : * ms QRS Dur : 118 ms QT Int : 490 ms P-R-T Axes : 76 -67 -14 degrees QTcB Int : 414 ms Critical Test Result: AV Block Sinus bradycardia with A-V dissociation and Junctional bradycardia Left axis deviation Incomplete right bundle branch block Abnormal ECG When compared with ECG of 27-Jun-2024 19:20, MANUAL COMPARISON REQUIRED DATA IS UNCONFIRMED Confirmed by Peng Velarde ([id number]), content editor EMMA PLASENCIA ([id number]) on 06/29/2024 1:21:45 PM Referred By: DR Jose Confirmed By: Peng Velarde
--- NOTE | 2024-06-27 19:33 | ED.VIS.DYS ---
HPI History of Present Illness Chief Complaint: Shortness of Breath Informant: patient and family Onset/Context/Timing Onset: Today and Yesterday Context: gradual Timing: Continuous Quality: Positive for Dyspnea on exertion and Wheezing Current Severity: Moderate Maximum Severity: Moderate Associated Symptoms cough and clear sputum; Negative for fever or sore throat Chest Pain: Positive for None Narrative Narrative: 70-year-old male history of COPD, ankylosing spondylitis, aortic aneurysm. Previously was on home O2 after having pneumonia and being in the hospital but currently is off the O2. Has been more short of breath with with exertion the last 2 days. Denies any chest pain. He has a chronic cough with chronic productive sputum has been unchanged. No fever. No leg swelling. Denies any cardiac history. No CA nor CABG nor stent. He is currently not on prednisone. He does use Trilogy inhaler daily. PE Risk Factors: Negative for Cancer, OCP + Smoking + > 35, Prior DVT or PE, Recent immobilization, Recent surgery or Recent travel Prior similar symptoms: Yes Recent Illness/Hospitalization: No PFSH PFSH Medical History Esophageal diverticulum Ankylosing spondylitis Vision problems High blood pressure Back pain Arthritis Alcohol abuse Right bundle branch block (RBBB) Obstructive sleep apnea Hyperlipidemia Essential hypertension Ascending aortic aneurysm Tobacco use disorder, continuous Pneumonia Spondylitis Ankylosis Dermal hypersensitivity reaction Macular degeneration COPD (chronic obstructive pulmonary disease) Home Medications ?Medication ?Instructions ?Recorded ?Last Taken ?Type vit C 250 mg-vit E 90 mg-zinc 40 1 tablet PO DAILY 06/21/20 Unknown History mg-copper 1 [id number] capsule (PreserVision AREDS-2) dupilumab 300 mg/2 mL subcutaneous 300 mg subcut Q2W 07/11/21 Unknown History pen injector (Dupixent) cholecalciferol (vitamin D3) 125 125 mcg PO DAILY 01/14/23 Unknown History mcg (5,000 unit) capsule fluticasone fur. 100 mcg-umeclid 1 inh inhalation DAILY #3 ea 05/08/24 Unknown Rx 62.5 mcg-vilant 25 mcg inhalat.powder (Trelegy Ellipta) simvastatin 40 mg tablet 40 mg PO DAILY #90 tabs 05/19/24 Unknown Rx losartan 50 mg tablet 50 mg PO DAILY #90 tabs 05/27/24 Unknown Rx Allergy/AdvReac Type Severity Reaction Status Date / Time Iodinated Contrast Media AdvReac Mild Nausea Verified 06/27/24 19:08 Family History Father Psoriasis Thoracic aortic aneurysm (TAA) Mother Skin cancer Sister Lupus Thoracic aortic aneurysm (TAA) Breast cancer Brother Crohn's disease Ulcerative colitis Thoracic aortic aneurysm (TAA) Sister Psoriatic arthritis Breast cancer Other Uterine cancer Surgical History H/O chest tube placement History of tonsillectomy H/O colonoscopy Social History household members: none current occupational status: retired 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 [employer] Smoking Status: Current every day smoker tobacco type: cigarettes Tobacco: How many years used: 57 Electronic Cigarette Use: not used how long ago did patient quit smoking: patient cut down to about 0.5ppd second hand exposure: Yes (father smoked for a few years) quit status: has quit before alcohol intake: never substance use type: does not use what type of physical activity do you participate in: none seatbelt use: always do you feel safe at home: Yes ROS ROS ED Constitutional Constitutional ED: Denies chills or fever(s) Eyes Eyes: Denies blurry vision ENT ENT ED: Denies ear pain Cardiovascular Cardiovascular: Denies chest pain or palpitations Respiratory/Chest Respiratory/Chest: Reports cough, dyspnea, dyspnea on exertion, sputum and other Gastrointestinal Gastrointestinal: Denies abdominal pain Genitourinary Genitourinary ED: Denies dysuria or hematuria Musculoskeletal Musculoskeletal: Denies arthralgias Integumentary Denies abscess Neurologic Neurologic: Denies headache(s) Psychiatric Psychiatric: Denies anxiety or depression Endocrine Endocrinology: Denies cold intolerance Hematologic/Lymphatic Hematologic/Lymphatic: Denies easy bleeding Allergic/Immunologic Allergic/Immunologic ED: Denies mouth swelling, tongue swelling or urticaria EXAM Physical Exam Narrative Exam Narrative: 79-year-old male sitting upright in bed. Vital signs are stable. Pulse ox is reading in the room is 96%. Room air no hypoxia. H EENT exam pupils round react light. Moist mucous membranes. Neck nontender JVD. No lymphadenopathy. Lungs coarse breath sounds bilaterally. Expiratory wheezing throughout. No rales or rhonchi. Equal symmetrical. Chest wall ribs nontender. No crepitance. Abdomen soft nontender. Heart bradycardic rate about 40-50 no murmur. Back nontender. Moving all 4 extremities. Nontender no edema no cords. Calves nontender. 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 Dorsi plantarflexion intact. Neurologically he is awake and alert. Answering questions following commands. Const Vital Signs: 06/27/24 19:08 06/27/24 19:38 06/27/24 19:38 Temperature 97.7 F L Temperature Source Oral Pulse Rate 40 L Respiratory Rate 28 H 16 Respiratory Effort Respiratory Depth Respiratory Pattern Blood Pressure 160/39 H Blood Pressure Mean 79 Pulse Ox 93 Oxygen Delivery Method Room Air Room Air 06/27/24 19:40 06/27/24 20:52 06/27/24 20:59 Temperature Temperature Source Pulse Rate 39 L 43 L Respiratory Rate 19 H 16 Respiratory Effort Short of Breath Respiratory Depth Normal Respiratory Pattern Hyperpnea Blood Pressure 156/47 H 156/67 H Blood Pressure Mean 83 96 Pulse Ox 96 95 Oxygen Delivery Method Room Air Room Air Room Air 06/27/24 21:34 Temperature 97.8 F Temperature Source Pulse Rate 46 L Respiratory Rate 18 Respiratory Effort Respiratory Depth Respiratory Pattern Blood Pressure 169/48 H Blood Pressure Mean 88 Pulse Ox 94 Oxygen Delivery Method Positive well developed; Negative for obese, cachectic, contractures or unkempt General Appearance ED: well developed and NAD; Negative for unkempt, cachectic, contractures or pallor Nutritional Appearance: Negative for cachectic or obese HEENT Reports moist mucous membranes atraumatic; Negative for trauma or tenderness Eyes PERRL and EOMs intact bilaterally Neck no lymphadenopathy, supple, no meningeal signs and no JVD Resp No normal respiratory effort and No clear to auscultation bilaterally Resp Narrative: Prolonged expiratory phase. Expiratory wheezes. No rales or rhonchi. Equal symmetrical. Chest wall nontender. No crepitance or subcu air. Auscultation: wheezes; Negative for rales or rhonchi Cardio Cardio Narrative: Bradycardia rate 40-50. No murmur. Rate: bradycardia GI non-distended and no masses Palpation: soft; Negative for tender, guarding, mass or rebound tenderness present Back/Spine no CVA tenderness and normal to inspection Extremity normal to inspection General Extremety ED: Negative for edema or tenderness General Extremity: Negative for edema Neuro oriented x3 and CN's II-XII intact bilaterally Sensorium / Orientation: alert, oriented to person, oriented to place and oriented to time; Negative for orientation impaired, confused or lethargic Speech: speech normal Motor Exam: strength 5/5 throughout Psych mental status grossly normal Appearance: Negative for unkempt Mood & Affect: Negative for depressed, anxious or tearful Thought Process: normal thought process Skin no wounds and skin turgor normal General Skin Exam: Negative for jaundice or pallor Lesions: no lesions Rashes: no rashes Trauma: Negative for abrasion, laceration or puncture MDM MDM MDM Narrative Medical decision making narrative: 79-year-old male shortness of breath expiratory wheezing suspect exacerbation of COPD. He also has a bradycardia rate in the 40s. Cardiac and respiratory workup. Treated with DuoNeb and albuterol aerosols. Solu-Medrol IV for the wheezing. Differential includes COPD, cardiac event, dysrhythmia. Rule out pneumonia Repeat exam patient is doing well at 9:25 PM. I spoke to both he and his sister. His wheezing is much better after the aerosol treatment and Solu-Medrol. We went over his chest x-ray. This could all be chronic changes possibly bilateral pneumonia. He will be started on IV Rocephin and Zithromax. I have the hospitalist on page. He remains in a junctional bradycardia rate 38-43 but he has a good blood pressure with that 156/67. Sister said he has never had a history of abnormal cardiac rhythm. Patient will be admitted to the PCU. I did speak to the hospitalist. He will admit the patient. He did want a CT of the chest obtained without contrast for a baseline and also for further evaluation for possible pneumonia versus chronic scarring. History & Record Review Discussion w/independent historian: Patient and Family Additional record(s) reviewed:: Prior inpatient record, Prior outpatient record, Prior ED visit and Prior labs Lab Data Attestation: I reviewed the patient's lab results. Lab results narrative: CBC shows normal white count 8. H&H 14 and 43. Platelets 196. Electrolytes show a gap of 11. BUN of 33 creatinine 1.15 consistent with dehydration. Glucose 103. Troponin 41. 2-hour troponin be obtained. Labs: Laboratory Results - last 24 hr 06/27/24 19:10 WBC 8.0 RBC 4.74 Hgb 14.4 Hct 43.0 MCV 90.7 MCH 30.4 MCHC 33.5 RDW Std Deviation 45.5 H RDW Coeff of Benny 13.8 Plt Count 196 MPV 11.3 Immature Gran % (Auto) 0.300 Neut % (Auto) 72.3 H Lymph % (Auto) 16.2 L [place] % (Auto) 8.3 Eos % (Auto) 2.1 Baso % (Auto) 0.8 Absolute Neuts (auto) 5.8 Absolute Lymphs (auto) 1.29 Nucleated RBC % 0 Sodium 138 Potassium 4.5 Chloride 110 H Carbon Dioxide 17.4 L Anion Gap 11 BUN 33 H Creatinine 1.15 Estim Creat Clear Calc 52.09 Est GFR (MDRD) Non-Af 65 BUN/Creatinine Ratio 28.9 H Glucose 103 H Calcium 9.0 Troponin T High Sens 41 H Radiography Chest X-Ray - ED: 2 View, Read by ED Physician, Normal, Heart, Mediastinum, Bony Structures, Chronic Changes, Right Infiltrate, Left Infiltrate and Right Effusion Diagnostic Testing: Clinical Impression(s) from Imaging Studies Chest X-Ray 06/27/24 20:23 IMPRESSION: 1. Mild bilateral perihilar patchy interstitial and alveolar opacities. 2. Small bilateral pleural effusions. Reading Location: [facility] Chest x-ray, 2 views, AP and lateral, interpreted both by myself and the radiologist. Shows a normal cardiac silhouette. Bilateral opacities which could be chronic changes and scarring, could be bilateral infiltrates. He also has a small right pleural effusion. I did compare this to her prior chest CT from a couple years ago and it does look significantly worse. He will be treated for potential pneumonia. Rhythm Strip Rhythm Strip: Junctional rhythm Rate: 43 Ectopy: PVC(s) EKG Initial EKG: Attestation: I personally reviewed and interpreted this EKG as follows: Interpretation: Junctional Comments: Junctional rhythm rate of 43. Occasional PVC. No acute signs of CA or ischemia. No old x-ray available for comparison. Prior: No Prior Discharge Plan Dx/Rx/DC Orders Clinical Impression: Acute exacerbation of chronic obstructive pulmonary disease, Pneumonia, Junctional bradycardia Disposition Disposition: [facility]
[2024-06-27] MEDS: Ipratropium/Albuterol Sulfate 3 ML AMPUL.NEB INHALATION (19:36)
[2024-06-27] MEDS: Albuterol 2.5 MG/3 ML VIAL.NEB. INHALATION (19:36)
[2024-06-27] MEDS: MethylPREDNISolone 125 MG/2 ML Vial IV (19:44)
[2024-06-27 19:47] LABS: Absolute Lymphocyte Count 1.29 X10^3/uL (0.83-4.51); Absolute Neutrophil Count 5.8 X10^3/uL (2.0-7.7); Basophil# 0.06 X10^3/uL; Basophil% 0.8 % (0-1); Eosinophil# 0.17 X10^3/uL; Eosinophils% 2.1 % (0-5); Hemoglobin 14.4 g/dL (13.0-16.5); Lymphocyte # 1.29 X10^3/ul (0.83-4.51); Lymphocyte % 16.2 % (19-41); Mean Corp Hgb Conc 33.5 g/dL (32-36); Mean Corpuscular Hgb 30.4 pg (27.0-32.0); Mean Corpuscular Volume 90.7 fL (80-94); Mean Platelet Vol. 11.3 fl (6.2-12.0); Monocyte# 0.66 X10^3/uL; Monocyte% 8.3 % (0-10); NRBC Flagged by Analyzer 0 % (0-5); Neutrophil # 5.78 X10^3/uL (2.7-7.7); Neutrophil % 72.3 % (47-70); Platelet Count 196 K/mm3 (150-450); RBC Distribution Width CV 13.8 % (11.6-14.6); RBC Distribution Width SD 45.5 fl (35.1-43.9); Red Blood Count 4.74 M/mm3 (4.6-6.2)
--- NOTE | 2024-06-27 20:23 | RAD_ITS ---
PROCEDURE: CHEST PA AND LATERAL 06/27/2024 REASON FOR EXAM: Chest pain TECHNIQUE: Frontal and lateral views of the chest. COMPARISON: None FINDINGS: Cardiomediastinal silhouette is within normal limits. Small bilateral pleural effusions. Patchy bilateral perihilar interstitial/alveolar opacities. No sizable pneumothorax. RAD/Chest PA and Lateral IMPRESSION: 1. Mild bilateral perihilar patchy interstitial and alveolar opacities. 2. Small bilateral pleural effusions. Reading Location: [facility]
[2024-06-27 20:28] LABS: Anion Gap 11 (5-15); BUN 33 mg/dL (4-19); BUN/Creat Ratio 28.9 RATIO (10-20); Carbon Dioxide 17.4 mmol/L (21.0-32.0); Chloride 110 mmol/L (98-108); Creatinine, Serum 1.15 mg/dL (0.70-1.20); EST Glomerular Filtration Rate 65 (>60); Estimated Creatinine Clearance 52.09 ml/min (50-250); Glucose 103 mg/dL (70-99); Potassium 4.5 mmol/L (3.3-5.1); Sodium Level 138 mmol/L (133-145); Troponin T High Sensitivity 41 ng/L (<=22)
[2024-06-27] MEDS: Ceftriaxone 1 GM/50 ML BAG IV (21:33)
--- NOTE | 2024-06-27 21:35 | PCM.HP.STD ---
HPI - General General Date of Admission: 06/27/24 Date of Service: 06/27/24 Chief Complaint: SOB and Wheezing. HPI Narrative WILIAN CAMPBELL, is a 79 M with a past medical history of essential hypertension; on losartan, hyperlipidemia; on simvastatin, history of tobacco abuse; subsequent COPD, previously on home oxygen, history of chest tube placement, HARDEEP, history of ankylosing spondylitis, history of ~4.2 cm ascending aortic aneurysm (2021), history of RBBB, history of EtOH abuse, history of macular degeneration, history of GERD; with esophageal diverticulum, listed allergy to iodinated contrast media (nausea) and OA; with chronic back pain who presents to [facility] ER complaining of shortness of breath and wheezing. Mr. Campbell reports his symptoms began approximately 2 days prior to admission with a gradual-onset of dyspnea on exertion that progressed to shortness of breath at rest. He also admits to a chronic cough productive of yellowish sputum that is unchanged from previous with worsening wheezing. He denies associated fever, chills, runny nose, sore throat, ear pain, chest pain, palpitations, heart racing, headache or rash. In the ER he was noted to have CXR suggestive of Multifocal Pneumonia complicated by clinical evidence of AE COPD with Acute Respiratory Insufficiency compounded by laboratory evidence of Dehydration with BUN/creatinine ratio of 28.9 present on admission also suspected to be culminating to cause Junctional Bradycardia of ~43 bpm present on admission and he was then admitted to the PCU for ongoing care for status expected to extend beyond 2 midnights. [facility] Medical History Esophageal diverticulum Ankylosing spondylitis Vision problems High blood pressure Back pain Arthritis Alcohol abuse Right bundle branch block (RBBB) Obstructive sleep apnea Hyperlipidemia Essential hypertension Ascending aortic aneurysm Tobacco use disorder, continuous Pneumonia Spondylitis Ankylosis Dermal hypersensitivity reaction Macular degeneration COPD (chronic obstructive pulmonary disease) Home Medications ?Medication ?Instructions ?Recorded ?Last Taken ?Type vit C 250 mg-vit E 90 mg-zinc 40 1 tablet PO DAILY 06/21/20 Unknown History mg-copper 1 [id number] capsule (PreserVision AREDS-2) dupilumab 300 mg/2 mL subcutaneous 300 mg subcut Q2W 07/11/21 Unknown History pen injector (Dupixent) cholecalciferol (vitamin D3) 125 125 mcg PO DAILY 01/14/23 Unknown History mcg (5,000 unit) capsule fluticasone fur. 100 mcg-umeclid 1 inh inhalation DAILY #3 ea 05/08/24 Unknown Rx 62.5 mcg-vilant 25 mcg inhalat.powder (Trelegy Ellipta) simvastatin 40 mg tablet 40 mg PO DAILY #90 tabs 05/19/24 Unknown Rx losartan 50 mg tablet 50 mg PO DAILY #90 tabs 05/27/24 Unknown Rx Allergy/AdvReac Type Severity Reaction Status Date / Time Iodinated Contrast Media AdvReac Mild Nausea Verified 06/27/24 19:08 Family History Father Psoriasis Thoracic aortic aneurysm (TAA) Mother Skin cancer Sister Lupus Thoracic aortic aneurysm (TAA) Breast cancer Brother Crohn's disease Ulcerative colitis Thoracic aortic aneurysm (TAA) Sister Psoriatic arthritis Breast cancer Other Uterine cancer Surgical History H/O chest tube placement History of tonsillectomy H/O colonoscopy Social History household members: none current occupational status: retired 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 [employer] Smoking Status: Current every day smoker tobacco type: cigarettes Tobacco: How many years used: 57 Electronic Cigarette Use: not used how long ago did patient quit smoking: patient cut down to about 0.5ppd second hand exposure: Yes (father smoked for a few years) quit status: has quit before alcohol intake: never substance use type: does not use what type of physical activity do you participate in: none seatbelt use: always do you feel safe at home: Yes ROS ROS Narrative Review of Systems: Constitutional: Vital Signs Vital Signs Vital Signs: 06/27/24 19:08 06/27/24 19:38 06/27/24 19:38 Temperature 97.7 F L Temperature Source Oral Pulse Rate 40 L Respiratory Rate 28 H 16 Respiratory Effort Respiratory Depth Respiratory Pattern Blood Pressure 160/39 H Blood Pressure Mean 79 Pulse Ox 93 Oxygen Delivery Method Room Air Room Air 06/27/24 19:40 06/27/24 20:52 06/27/24 20:59 Temperature Temperature Source Pulse Rate 39 L 43 L Respiratory Rate 19 H 16 Respiratory Effort Short of Breath Respiratory Depth Normal Respiratory Pattern Hyperpnea Blood Pressure 156/47 H 156/67 H Blood Pressure Mean 83 96 Pulse Ox 96 95 Oxygen Delivery Method Room Air Room Air Room Air Weight Weight: 162 lb 0.636 oz Body Mass Index (BMI) 23.9 Physical Exam Const alert and oriented x3 Constitutional Narrative: Mild distress noted with chronically ill appearance. General Appearance: cooperative HEENT normocephalic, head/scalp atraumatic and hearing grossly normal bilaterally HEENT Narrative: Mucous membranes dry. Eyes PERRL and EOMs intact bilaterally Neck no lymphadenopathy and supple Resp Resp Narrative: Diminished breath sounds throughout with scattered rhonchi and wheezing. Auscultation: rhonchi and wheezes Cardio regular rhythm Cardio Narrative: Severe bradycardia ~40 bpm. GI normal to inspection, nondistended, normoactive bowel sounds, soft to palpation, non-tender and non-distended Extremity normal to inspection, full ROM and no clubbing, cyanosis or edema Skin Skin Narrative: Patient has no evidence of rash, abscess, wounds or jaundice Neuro oriented x3, CN's II-XII intact bilaterally, moves all extremities and no focal motor deficits Sensorium / Orientation: awake, alert, oriented to person, oriented to place and oriented to time Speech: speech normal Psych affect normal Results Medical Records Data Attestation: I reviewed the patient's medical records Lab / Micro Data Attestation: I reviewed the patient's lab results. 06/28/24 05:37 06/27/24 19:10 Labs: Laboratory Results - last 24 hr 06/27/24 19:10: WBC 8.0, RBC 4.74, Hgb 14.4, Hct 43.0, MCV 90.7, MCH 30.4, MCHC 33.5, RDW Std Deviation 45.5 H, RDW Coeff of Benny 13.8, Plt Count 196, MPV 11.3, Immature Gran % (Auto) 0.300, Neut % (Auto) 72.3 H, Lymph % (Auto) 16.2 L, [place] % (Auto) 8.3, Eos % (Auto) 2.1, Baso % (Auto) 0.8, Absolute Neuts (auto) 5.8, Absolute Lymphs (auto) 1.29, Nucleated RBC % 0, Sodium 138, Potassium 4.5, Chloride 110 H, Carbon Dioxide 17.4 L, Anion Gap 11, BUN 33 H, Creatinine 1.15, Estim Creat Clear Calc 52.09, Est GFR (MDRD) Non-Af 65, BUN/Creatinine Ratio 28.9 H, Glucose 103 H, Calcium 9.0, Troponin T High Sens 41 H Rhythm Strip Rhythm Strip: Junctional rhythm Rate: 43 Ectopy: PVC(s) Imaging Radiology Impression Chest X-Ray 06/27/24 20:23 IMPRESSION: 1. Mild bilateral perihilar patchy interstitial and alveolar opacities. 2. Small bilateral pleural effusions. Reading Location: [facility] Imaging Services [address] [place] [address] [id number] Chest without Contrast MR#: [id number] Acct: [id number] Name: KANDIDavidWILIAN Cliff Rep #: [id number] : 1945 M 79 From: Reynaldo Anderson DO PCP: Dr. Lucia Trimble MD Status: ADM IN Study: Chest without Contrast Date of Exam: 06/27/24 Exam# [id number] Ordering Dr: Valente Beckford MD PROCEDURE: CHEST WITHOUT CONTRAST 06/27/2024 REASON FOR EXAM: COPD ?? PNEUMONIA VS SCAR TISSUE TECHNIQUE: Chest CT without contrast. Coronal and Sagittal reconstruction series were provided. One or more dose reduction techniques were used (e.g., Automated exposure control, adjustment of the mA and/or kV according to patient size, use of iterative reconstruction technique COMPARISON: Same day chest radiograph FINDINGS: Heart size is within normal limits. Mild LAD coronary artery calcifications. No significant pericardial effusion. Aortic valve calcifications. Ectasia of the ascending thoracic aorta measuring 4.4 cm. Normal caliber pulmonary arteries. No bulky lymphadenopathy. Moderate hiatal hernia. Small amount of fluid/debris in the distal esophagus. Superficial soft tissues are within normal limits. Punctate nonobstructing right renal calculus. Cholelithiasis. Mild secretions in the distal trachea. Airways are otherwise patent. Small loculated bilateral pleural effusions with mild pleural thickening. Scattered bilateral calcified pleural plaques. Mild bibasilar scarring/atelectasis. No patchy infiltrates or pneumothorax. Moderate emphysema. Biapical pleural-parenchymal scarring. No pulmonary mass. No acute osseous abnormality. Multilevel thoracic ankylosis. CT/Chest without Contrast IMPRESSION: 1. Small loculated bilateral pleural effusions with mild pleural thickening. Calcified bilateral pleural plaques which can be seen with asbestos related lung disease. 2. Mild/moderate bibasilar atelectasis/scarring. 3. Moderate hiatal hernia. Fluid/debris in the distal esophagus. 4. Mild secretions in the distal trachea. 5. Emphysema and coronary artery disease. 6. Ectasia of the ascending thoracic aorta. Reading Location: [facility] Assessment & Plan Assessment/Plan (1) Multifocal pneumonia: (2) Acute exacerbation of chronic obstructive pulmonary disease: (3) Respiratory insufficiency: (4) Dehydration: (5) Junctional bradycardia: (6) Right bundle branch block (RBBB): (7) Essential hypertension: (8) Smoking greater than 30 pack years: PLAN: Plan 1. Multifocal Pneumonia - Admit to PCU. Continue broad-spectrum antibiotics with IV ceftriaxone and IV azithromycin and await culture and sensitivity data. Check urinary antigens to Streptococcus pneumonia and Legionella species. Give guaifenesin 600 mg p.o. twice daily. Give acetaminophen as needed for [id number] (level 1-5/10) pain or fever. Give morphine IV as needed for severe (level 6-10/10) pain. 2. AE COPD with Acute Respiratory Insufficiency due to #1 - Continue IV Solu-Medrol plus as needed and scheduled nebulizers. Wean supplemental oxygen as tolerated. 3. Dehydration with BUN/creatinine ratio of 28.9 present on admission compounding #1 & #2 - Volume resuscitate and recheck renal indices daily to ensure trend of improvement. 4. Junctional Bradycardia of ~43 bpm present on admission in the setting of a known previous history of RBBB adding to the medical complexity of #1 of #3 - Check echocardiogram to evaluate LVEF. Serialize troponin. Finally, we will consult [facility] cardiology to see this patient on rounds in the a.m. further recommendations without appreciated in advance. 5. Essential Hypertension; on losartan - Hold losartan in light of #3 until volume restored. Give IV hydralazine prn for systolic blood pressure > 160 mmHg. 6. Hyperlipidemia; on simvastatin - Resume statin and check Lipid Profile. 7. History of tobacco abuse; subsequent COPD previously on home oxygen and history of chest tube placement - Noted. Tobacco Cessation will be strongly encouraged. 8. HARDEEP - Stable. 9. History of ankylosing spondylitis - Stable. Resume dupilumab as outpatient. 10. History of ~4.2 cm ascending aortic aneurysm (2021) - Noted with CT pending this admission to reassess. 11. History of EtOH abuse - Patient denies recent EtOH abuse. We will watch for signs of withdrawal. 12. History of macular degeneration - Stable. 13. History of GERD; with esophageal diverticulum - Start PPI while in high-dose steroids for GI prophylaxis. 14. Listed allergy to iodinated contrast media (nausea) - Noted. 15. OA; with chronic back pain - Give acetaminophen as needed for [id number] (level 1-5/10) pain or fever. 16. DVT prophylaxis - Heparin 5,000U sq BID plus SCD's. Total time: Approximately (but not less than) 75 minutes. Charges/Coding Visit Charges Inpatient E&M: 01044 Init Hosp L3
--- NOTE | 2024-06-27 21:42 | CT_ITS ---
PROCEDURE: CHEST WITHOUT CONTRAST 06/27/2024 REASON FOR EXAM: COPD ?? PNEUMONIA VS SCAR TISSUE TECHNIQUE: Chest CT without contrast. Coronal and Sagittal reconstruction series were provided. One or more dose reduction techniques were used (e.g., Automated exposure control, adjustment of the mA and/or kV according to patient size, use of iterative reconstruction technique COMPARISON: Same day chest radiograph FINDINGS: Heart size is within normal limits. Mild LAD coronary artery calcifications. No significant pericardial effusion. Aortic valve calcifications. Ectasia of the ascending thoracic aorta measuring 4.4 cm. Normal caliber pulmonary arteries. No bulky lymphadenopathy. Moderate hiatal hernia. Small amount of fluid/debris in the distal esophagus. Superficial soft tissues are within normal limits. Punctate nonobstructing right renal calculus. Cholelithiasis. Mild secretions in the distal trachea. Airways are otherwise patent. Small loculated bilateral pleural effusions with mild pleural thickening. Scattered bilateral calcified pleural plaques. Mild bibasilar scarring/atelectasis. No patchy infiltrates or pneumothorax. Moderate emphysema. Biapical pleural-parenchymal scarring. No pulmonary mass. No acute osseous abnormality. Multilevel thoracic ankylosis. CT/Chest without Contrast IMPRESSION: 1. Small loculated bilateral pleural effusions with mild pleural thickening. C alcified bilateral pleural plaques which can be seen with asbestos related lung disease. 2. Mild/moderate bibasilar atelectasis/scarring. 3. Moderate hiatal hernia. Fluid/debris in the distal esophagus. 4. Mild secretions in the distal trachea. 5. Emphysema and coronary artery disease. 6. Ectasia of the ascending thoracic aorta. Reading Location: [facility]
--- NOTE | 2024-06-27 22:17 | ECHOD_ITS ---
Reason For Study Reason For Study: Complete heart block Procedure This was a 2D Doppler, Color Flow transthoracic echocardiogram. Exam performed portable in patient room. Left Ventricle Normal LV size. The left ventricular ejection fraction is 60 %. No regional wall motion abnormalities noted. Right Ventricle Normal RV size. Normal systolic function. Atria Normal left atrium. Normal right atrium. Mitral Valve Mild focal mitral valve calcification of the anterior leaflet. Mild (1+) eccentric mitral valve insufficiency. Tricuspid Valve Normal tricuspid valve. Aortic Valve Moderate focal aortic valve calcification. Mild aortic stenosis. Pulmonic Valve Normal pulmonic valve. Great Vessels Moderately dilated aortic root. The pulmonary artery is normal size. Normal inferior vena cava. Pericardium/Pleural No pericardial effusion. MMode/2D Measurements & Calculations LVIDd: 4.3 cm IVSd: 1.2 cm LVOT diam: 2.0 cm LVIDs: 2.4 cm LVPWd: 1.1 cm LVOT area: 3.2 cm2 RVDd: 3.7 cm FS: 42.6 % Ao root diam: 4.8 cm LA dimension(2D): 4.2 cm Doppler Measurements & Calculations MV E max prosper: 81.8 cm/sec Ao V2 max: 233.6 cm/sec LV V1 max: 143.8 cm/sec MV A max prosper: 90.0 cm/sec Ao max P.9 mmHg LV V1 max P.3 mmHg MV E/A: 0.91 Ao V2 mean: 139.2 cm/sec LV V1 mean P.0 mmHg Ao mean P.1 mmHg LV V1 mean: 93.5 cm/sec Ao V2 VTI: 57.8 cm LV V1 VTI: 38.0 cm AV (velocity ratio): 0.66 BILL(I,D): 2.1 cm2 BILL(V,D): 2.0 cm2 SV(LVOT): 122.7 ml PA V2 max: 93.2 cm/sec ECHO/Echo Complete Interpretation Summary Normal LV size. The left ventricular ejection fraction is 60 %. Moderate focal aortic valve calcification. Mild aortic stenosis. Moderately dilated aortic root. Ordering Physician: Tony Benoit Referring Physician: Lucia Trimble Performed By: Emery Liriano RCS
[2024-06-27] MEDS: Azithromycin 500 MG in 0.9% Normal Saline (250mL Bag) 250 ML 255 MG IV (22:21)
--- NOTE | 2024-06-27 23:04 | EKG12_ITS ---
Test Reason : Blood Pressure : */* mmHG Vent. Rate : 39 BPM Atrial Rate : 38 BPM P-R Int : * ms QRS Dur : 138 ms QT Int : 552 ms P-R-T Axes : 54 -67 -46 degrees QTcB Int : 444 ms Critical Test Result: Low HR , Arrhythmia , AV Block Marked sinus bradycardia with A-V dissociation and Idioventricular rhythm Right bundle branch block Left anterior fascicular block Bifascicular block Abnormal ECG When compared with ECG of 27-Jun-2024 23:12, MANUAL COMPARISON REQUIRED DATA IS UNCONFIRMED Confirmed by Peng Velarde ([id number]), make up editor EMMA PLASENCIA ([id number]) on 06/29/2024 1:20:24 PM Referred By: Confirmed By: Peng Velarde
[2024-06-27] MEDS: 0.9% Normal Saline (1000mL) 1,000 ML 100 ML IV (23:24)
[2024-06-27 23:28] LABS: Magnesium 2.2 mg/dL (1.5-2.2)
[2024-06-28] VITALS (8 sets, daily range): BP systolic 117–150; BP diastolic 39–49; PULSE 35–46; RESP 18–28; TEMP 36.5–37; O2SAT 92–97
[2024-06-28 00:07] LABS: Hemoglobin A1c 6.1 % (<=5.6)
[2024-06-28 00:09] LABS: Troponin T High Sens 2 HR 62 ng/L (<=22)
[2024-06-28 00:23] LABS: Vitamin B12 495 pg/mL (180-914)
[2024-06-28] MEDS: Acetaminophen 325 MG Tablet 650 MG PO ×2 (01:33→20:47)
[2024-06-28 01:34] LABS: Troponin T High Sens 4 HR 50 ng/L (<=22)
[2024-06-28 06:09] LABS: Absolute Lymphocyte Count 0.35 X10^3/uL (0.83-4.51); Absolute Neutrophil Count 3.7 X10^3/uL (2.0-7.7); Hemoglobin 13.2 g/dL (13.0-16.5); Lymphocyte # 0.35 X10^3/ul (0.83-4.51); Lymphocyte % 8.6 % (19-41); Mean Corp Hgb Conc 33.8 g/dL (32-36); Mean Corpuscular Hgb 30.1 pg (27.0-32.0); Mean Platelet Vol. 11.4 fl (6.2-12.0); Monocyte# 0.05 X10^3/uL; Monocyte% 1.2 % (0-10); NRBC Flagged by Analyzer 0 % (0-5); Neutrophil # 3.65 X10^3/uL (2.7-7.7); Neutrophil % 89.7 % (47-70); POSITIVE DIFFERENTIAL YES; Platelet Count 164 K/mm3 (150-450); RBC Distribution Width CV 13.6 % (11.6-14.6); RBC Distribution Width SD 44.3 fl (35.1-43.9); Red Blood Count 4.38 M/mm3 (4.6-6.2); White Blood Count 4.1 K/mm3 (4.4-11.0)
--- NOTE | 2024-06-28 06:37 | PN.HOSP_ITS ---
Reason for Visit Reason for Visit: Exertional dyspnea Subjective Subjective Patient with no issues overnight. States his dyspnea was only with exertion. He has a wheeze which he has chronically due to COPD and ongoing tobacco abuse but states this was not been different. Developed acutely and he is not really had anything like this before. Objective Data Objective Data Vital Signs: Vital Signs Temp Pulse Resp BP Pulse Ox O2 Del Method 97.7 F L 41 L 18 117/48 L 95 Room Air 06/28/24 04:08 06/28/24 04:08 06/28/24 04:08 06/28/24 04:08 06/28/24 04:08 06/28/24 04:08 Oxygen Delivery Method Room Air Weight: 71.3 kg Body Mass Index (BMI) 23.2 Intake & Output: Intake and Output for Last 24 Hours 06/26/24 06/27/24 06/28/24 23:59 23:59 23:59 Intake Total 425 / 425 60 / 60 Output Total 200 / 200 Balance 425 / 425 -140 / -140 Lab / Micro Data 06/28/24 05:37 06/28/24 05:37 Labs: Laboratory Results - last 24 hr 06/27/24 19:10: WBC 8.0, RBC 4.74, Hgb 14.4, Hct 43.0, MCV 90.7, MCH 30.4, MCHC 33.5, RDW Std Deviation 45.5 H, RDW Coeff of Benny 13.8, Plt Count 196, MPV 11.3, Immature Gran % (Auto) 0.300, Neut % (Auto) 72.3 H, Lymph % (Auto) 16.2 L, [place] % (Auto) 8.3, Eos % (Auto) 2.1, Baso % (Auto) 0.8, Absolute Neuts (auto) 5.8, Absolute Lymphs (auto) 1.29, Nucleated RBC % 0, Sodium 138, Potassium 4.5, C hloride 110 H, Carbon Dioxide 17.4 L, Anion Gap 11, BUN 33 H, Creatinine 1.15, Estim Creat Clear Calc 52.09, Est GFR (MDRD) Non-Af 65, BUN/Creatinine Ratio 28.9 H, Glucose 103 H, Hemoglobin A1c 6.1 H, Calcium 9.0, Magnesium 2.2, T roponin T High Sens 41 H 06/27/24 23:04: Troponin T Hi Sens 2 Hr 62 H*, Vitamin B12 495, Serum Folate 11.20, TSH 1.350 06/28/24 01:11: Troponin T Hi Sens 4Hr 50 H 06/28/24 05:37: WBC 4.1 L, RBC 4.38 L, Hgb 13.2, Hct 39.0 L, MCV 89.0, MCH 30.1, MCHC 33.8, RDW Std Deviation 44.3 H, RDW Coeff of Benny 13.6, Plt Count 164, MPV 11.4, Immature Gran % (Auto) 0.500, Neut % (Auto) 89.7 H, Lymph % (Auto) 8.6 L, [place] % (Auto) 1.2, Eos % (Auto) 0.0, Baso % (Auto) 0.0, Absolute Neuts (auto) 3.7, Absolute Lymphs (auto) 0.35 L, Nucleated RBC % 0 Micro: Microbiology 06/27/24 21:10 Mucosa - Nose SARS-CoV-2, Influenza & RSV (PCR) - Final Radiography Diagnostic Testing: Radiology Impression Chest X-Ray 06/27/24 20:23 IMPRESSION: 1. Mild bilateral perihilar patchy interstitial and alveolar opacities. 2. Small bilateral pleural effusions. Reading Location: [facility] Chest CT 06/27/24 21:42 IMPRESSION: 1. Small loculated bilateral pleural effusions with mild pleural thickening. Calcified bilateral pleural plaques which can be seen with asbestos related lung disease. 2. Mild/moderate bibasilar atelectasis/scarring. 3. Moderate hiatal hernia. Fluid/debris in the distal esophagus. 4. Mild secretions in the distal trachea. 5. Emphysema and coronary artery disease. 6. Ectasia of the ascending thoracic aorta. Reading Location: [facility] Rhythm Strip Rhythm Strip: Junctional rhythm Rate: 43 Ectopy: PVC(s) Physical Exam Const alert, oriented x3, no apparent distress, average body habitus and well nourished; Negative for healthy appearing Constitutional Narrative: Anxious, older, white male, lying in bed, sister at bedside, currently appears comfortable, looks younger than stated age, does not appear toxic HEENT head/scalp atraumatic and moist oral mucous membranes Head and Scalp: normocephalic Eyes Eyes Narrative: Extremely poor vision Resp normal respiratory effort, no retractions, no use of accessory muscles and No clear to auscultation bilaterally Resp Narrative: Scattered inspiratory and expiratory wheezes, prolonged inspiratory phase Auscultation: wheezes; Negative for rales or rhonchi Cardio S1 normal heart sound, S2 normal heart sound, no murmurs, no rub, no gallops and no clicks; Negative for regular rate or regular rhythm Cardio Narrative: Bradycardic and EKG shows third-degree heart block GI normal to inspection, nondistended, normoactive bowel sounds, soft to palpation and non-tender Extremity Extremity Narrative: 2+ pedal pulses, 2+ radial pulses, trace bilateral lower extremity edema, no clubbing or cyanosis Neuro oriented x3, moves all extremities and no focal motor deficits Psych Psych Narrative: Patient is somewhat fidgety and anxious. Mood & Affect: anxious Assessment & Plan Assessment/Plan (1) Acute exacerbation of chronic obstructive pulmonary disease: (2) Elevated troponin: (3) Complete heart block: PLAN: Plan Complete heart block -All 3 EKG showed complete heart block -N.p.o. after midnight -Patient hemodynamically stable so I think we can continue to watch him on telemetry -Echocardiogram in a.m. -TSH is normal -Patient is not on any rate modulating drugs -Plan is for pacemaker tomorrow with Dr. Garcia per cardiology note Acute exacerbation of COPD -Patient markedly wheezy on exam -No cough or change in sputum production so we will discontinue antibiotics--> reviewed imaging and no infiltrate noted -Solu-Medrol 40 every 8 -Start Mucinex 1200 p.o. 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
[2024-06-28 06:41] LABS: Blood Gas Specimen Type VEN; O2 Delivery Device Room Air; SITE Not entered; VBG BASE EXCESS -9 mmol/L (-1.0-3.5); VBG Bicarbonate 16 mmol/L (22-26); VBG PO2 70 mmHg (25-40); VBG SO2 94 % (50-70); VBG TCO2 16 mmol/L (23-33); VBG pCO2 25.9 mmHg (41-51); VBG pH 7.39 (7.32-7.42)
[2024-06-28] MEDS: Ipratropium/Albuterol Sulfate 3 ML AMPUL.NEB INHALATION ×2 (06:42→19:52)
[2024-06-28 06:59] LABS: ALB/GLOB Ratio 1.4 RATIO (0.9-2.4); AST(SGOT) 21 U/L (<=37); Alanine Aminotransfer ALT/SGPT 39 U/L (<=46); Albumin, Serum 3.5 g/dL (3.4-4.8); Alkaline Phosphatase 75 U/L (40-129); Anion Gap 13 (5-15); BUN 38 mg/dL (4-19); BUN/Creat Ratio 29.8 RATIO (10-20); Calcium,Total 8.9 mg/dL (7.6-11.0); Carbon Dioxide 14.8 mmol/L (21.0-32.0); Chloride 111 mmol/L (98-108); Creatinine, Serum 1.28 mg/dL (0.70-1.20); EST Glomerular Filtration Rate 57 (>60); Globulin 2.5 g/dL (2.2-4.2); Glucose 168 mg/dL (70-99); Potassium 4.6 mmol/L (3.3-5.1); Sodium Level 139 mmol/L (133-145); Total Bilirubin 0.58 mg/dL (0.00-1.30)
--- NOTE | 2024-06-28 08:35 | EKG12_ITS ---
Test Reason : SOB Blood Pressure : */* mmHG Vent. Rate : 43 BPM Atrial Rate : * BPM P-R Int : * ms QRS Dur : 118 ms QT Int : 466 ms P-R-T Axes : * -72 42 degrees QTcB Int : 393 ms Normal sinus rhythm with complete heart block with occasional Premature ventricular complexes Left axis deviation Incomplete right bundle branch block Abnormal ECG No previous ECGs available Confirmed by Peng Velarde ([id number]), movie editor EMMA PLASENCIA ([id number]) on 07/01/2024 10:08:27 AM Referred By: Confirmed By: Peng Velarde
[2024-06-28] MEDS: Furosemide 40 MG/4 ML Vial IV (09:52)
[2024-06-28] MEDS: Lactobacillis Acidophilus 1 CAP PO ×2 (09:52→14:42)
[2024-06-28] MEDS: Heparin Injection (Vial) 5,000 UNIT/ML VIAL 5000 UNIT SC ×2 (09:52→20:43)
[2024-06-28] MEDS: Cholecalciferol (Vit D3) 125 MCG CAPSULE (5,000 UNITS) PO (09:52)
[2024-06-28] MEDS: LORazepam 0.5 MG Tablet PO (11:19)
--- NOTE | 2024-06-28 13:41 | PCM.CONS.C ---
Assessment & Plan Assessment/Plan (1) Dehydration: (2) Elevated troponin: (3) COPD (chronic obstructive pulmonary disease): QUALIFIERS: COPD type: unspecified COPD Qualified Code(s): J44.9 - Chronic obstructive pulmonary disease, unspecified (4) Right bundle branch block (RBBB): (5) Complete heart block: PLAN: 79-year-old patient, presented to ED at [facility] With shortness of breath. Has longstanding history of COPD, ankylosing spondylitis. And previously he was on home oxygen. Cardiac consultation requested as he has mild elevation of high sensitive troponin An abnormal EKG, with complete heart block Patient has multiple other medical comorbidities with history of longstanding obstructive sleep apnea history of smoking Abnormal previous cardiac evaluation where he had a EKG showing right bundle branch block Previous echocardiogram LV function preserved he has dilated ascending aorta and had a CTA evaluation. History of hypertension. Cardiac care plan recommendation I reviewed and discussed all his current medication He has mild elevation of high sensitive troponin which is likely secondary to dehydration with renal insufficiency and elevated creatinine. His EKG definitely showed evidence of complete heart block I recommended further assessment by EKG and the plan of permanent pacemaker which will be set up tomorrow, by Dr. Pal HPI Consult Data Date of Consult: 06/28/24 HPI Narrative Reason for Consultation: Bradycardia/complete heart block HPI Narrative: WILIAN CAMPBELL, is a 79 M who presents [facility], [facility] Medical History Esophageal diverticulum Ankylosing spondylitis Vision problems High blood pressure Back pain Arthritis Alcohol abuse Right bundle branch block (RBBB) Obstructive sleep apnea Hyperlipidemia Essential hypertension Ascending aortic aneurysm Tobacco use disorder, continuous Pneumonia Spondylitis Ankylosis Dermal hypersensitivity reaction Macular degeneration COPD (chronic obstructive pulmonary disease) Home Medications ?Medication ?Instructions ?Recorded ?Last Taken ?Type vit C 250 mg-vit E 90 mg-zinc 40 1 tablet PO DAILY 06/21/20 Unknown History mg-copper 1 [id number] capsule (PreserVision AREDS-2) dupilumab 300 mg/2 mL subcutaneous 300 mg subcut Q2W 07/11/21 Unknown History pen injector (Dupixent) cholecalciferol (vitamin D3) 125 125 mcg PO DAILY 01/14/23 Unknown History mcg (5,000 unit) capsule fluticasone fur. 100 mcg-umeclid 1 inh inhalation DAILY #3 ea 05/08/24 Unknown Rx 62.5 mcg-vilant 25 mcg inhalat.powder (Trelegy Ellipta) simvastatin 40 mg tablet 40 mg PO DAILY #90 tabs 05/19/24 Unknown Rx losartan 50 mg tablet 50 mg PO DAILY #90 tabs 05/27/24 Unknown Rx Allergy/AdvReac Type Severity Reaction Status Date / Time Iodinated Contrast Media AdvReac Mild Nausea Verified 06/27/24 19:08 Family History Father Psoriasis Thoracic aortic aneurysm (TAA) Mother Skin cancer Sister Lupus Thoracic aortic aneurysm (TAA) Breast cancer Brother Crohn's disease Ulcerative colitis Thoracic aortic aneurysm (TAA) Sister Psoriatic arthritis Breast cancer Other Uterine cancer Surgical History H/O chest tube placement History of tonsillectomy H/O colonoscopy Social History household members: none current occupational status: retired 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 [employer] Smoking Status: Current every day smoker tobacco type: cigarettes Tobacco: How many years used: 57 Electronic Cigarette Use: not used how long ago did patient quit smoking: patient cut down to about 0.5ppd second hand exposure: Yes (father smoked for a few years) quit status: has quit before alcohol intake: never substance use type: does not use what type of physical activity do you participate in: none seatbelt use: always do you feel safe at home: Yes Physical Exam Cardio Cardio Narrative: Seen and evaluated at bedside along with the nursing staff Have shortness of breath at rest with wheezy chest division commander showed complete heart block Cardiac exam S1-S2 regular/no systolic or diastolic murmur No pericardial rub Chest exam bilateral expiratory wheeze No inspiratory rales No lower extremity edema. Risk Stratification Risk Stratification Applicable: No Objective Data Vital Signs: Vital Signs Temp Pulse Resp BP Pulse Ox O2 Del Method 98.2 F 39 L 18 150/45 H 95 Room Air 06/28/24 08:00 06/28/24 11:18 06/28/24 08:00 06/28/24 11:18 06/28/24 11:18 06/28/24 11:18 Oxygen Delivery Method Room Air Weight: 157 lb 3.033 oz Body Mass Index (BMI) 23.2 Intake & Output: Intake and Output for Last 24 Hours 06/26/24 06/27/24 06/28/24 23:59 23:59 23:59 Intake Total 425 / 425 928.33 / 928.33 Output Total 200 / 200 Balance 425 / 425 728.33 / 728.33 Lab / Micro Data 06/28/24 05:37 06/28/24 05:37 Labs: Laboratory Results - last 24 hr 06/27/24 19:10: WBC 8.0, RBC 4.74, Hgb 14.4, Hct 43.0, MCV 90.7, MCH 30.4, MCHC 33.5, RDW Std Deviation 45.5 H, RDW Coeff of Benny 13.8, Plt Count 196, MPV 11.3, Immature Gran % (Auto) 0.300, Neut % (Auto) 72.3 H, Lymph % (Auto) 16.2 L, [place] % (Auto) 8.3, Eos % (Auto) 2.1, Baso % (Auto) 0.8, Absolute Neuts (auto) 5.8, Absolute Lymphs (auto) 1.29, Nucleated RBC % 0, Sodium 138, Potassium 4.5, Chloride 110 H, Carbon Dioxide 17.4 L, Anion Gap 11, BUN 33 H, Creatinine 1.15, Estim Creat Clear Calc 52.09, Est GFR (MDRD) Non-Af 65, BUN/Creatinine Ratio 28.9 H, Glucose 103 H, Hemoglobin A1c 6.1 H, Calcium 9.0, Magnesium 2.2, Troponin T High Sens 41 H 06/27/24 23:04: Troponin T Hi Sens 2 Hr 62 H*, Vitamin B12 495, Serum Folate 11.20, TSH 1.350 06/28/24 01:11: Troponin T Hi Sens 4Hr 50 H 06/28/24 05:37: WBC 4.1 L, RBC 4.38 L, Hgb 13.2, Hct 39.0 L, MCV 89.0, MCH 30.1, MCHC 33.8, RDW Std Deviation 44.3 H, RDW Coeff of Benny 13.6, Plt Count 164, MPV 11.4, Immature Gran % (Auto) 0.500, Neut % (Auto) 89.7 H, Lymph % (Auto) 8.6 L, [place] % (Auto) 1.2, Eos % (Auto) 0.0, Baso % (Auto) 0.0, Absolute Neuts (auto) 3.7, Absolute Lymphs (auto) 0.35 L, Nucleated RBC % 0, Sodium 139, Potassium 4.6, Chloride 111 H, Carbon Dioxide 14.8 L, Anion Gap 13, BUN 38 H, Creatinine 1.28 H, Estim Creat Clear Calc 46.80 L, Est GFR (MDRD) Non-Af 57 L, BUN/Creatinine Ratio 29.8 H, Glucose 168 H, Calcium 8.9, Total Bilirubin 0.58, AST 21, ALT 39, Alkaline Phosphatase 75, Total Protein 6.0, Albumin 3.5, Globulin 2.5, Albumin/Globulin Ratio 1.4 Micro: Microbiology 06/27/24 21:10 Mucosa - Nose SARS-CoV-2, Influenza & RSV (PCR) - Final ABG Data ABG results: ABG 06/28/24 06:38 Specimen Type FARZANA Sample Site Not entered O2 % 21.0 VBG pH 7.39 VBG pO2 70 H VBG HCO3 16 L VBG Total CO2 16 L VBG O2 Sat (Calc) 94 H VBG Base Excess -9 L POC Mix VBG pCO2 Pt Tmp 25.9 L O2 Delivery Device Room Air Rhythm Strip Rhythm Strip: Junctional rhythm Rate: 43 Ectopy: PVC(s) Cardiology Labs/Tests 06/27/24 19:10: WBC 8.0, RBC 4.74, Hgb 14.4, Hct 43.0, MCV 90.7, MCH 30.4, MCHC 33.5, Plt Count 196, MPV 11.3, Immature Gran % (Auto) 0.300, Neut % (Auto) 72.3 H, Lymph % (Auto) 16.2 L, [place] % (Auto) 8.3, Eos % (Auto) 2.1, Baso % (Auto) 0.8, Absolute Neuts (auto) 5.8, Nucleated RBC % 0, Sodium 138, Potassium 4.5, Chloride 110 H, Carbon Dioxide 17.4 L, Anion Gap 11, BUN 33 H, Creatinine 1.15, Est GFR (MDRD) Non-Af 65, BUN/Creatinine Ratio 28.9 H, Glucose 103 H, Hemoglobin A1c 6.1 H, Calcium 9.0, Magnesium 2.2 06/28/24 05:37: WBC 4.1 L, RBC 4.38 L, Hgb 13.2, Hct 39.0 L, MCV 89.0, MCH 30.1, MCHC 33.8, Plt Count 164, MPV 11.4, Immature Gran % (Auto) 0.500, Neut % (Auto) 89.7 H, Lymph % (Auto) 8.6 L, [place] % (Auto) 1.2, Eos % (Auto) 0.0, Baso % (Auto) 0.0, Absolute Neuts (auto) 3.7, Nucleated RBC % 0, Sodium 139, Potassium 4.6, Chloride 111 H, Carbon Dioxide 14.8 L, Anion Gap 13, BUN 38 H, Creatinine 1.28 H, Est GFR (MDRD) Non-Af 57 L, BUN/Creatinine Ratio 29.8 H, Glucose 168 H, Calcium 8.9, Total Bilirubin 0.58 06/28/24 06:38: VBG pH 7.39, VBG pO2 70 H, VBG HCO3 16 L, VBG O2 Sat (Calc) 94 H, VBG Base Excess -9 L Rhythm: EKG: ECHO: Stress Test: Cardiac Cath: PCI: CT Surgery: Holter monitor: EPS: PPM: CXR: Chest CT Scan: Radiography Diagnostic Testing: Radiology Impression Chest X-Ray 06/27/24 20:23 IMPRESSION: 1. Mild bilateral perihilar patchy interstitial and alveolar opacities. 2. Small bilateral pleural effusions. Reading Location: [facility] Chest CT 06/27/24 21:42 IMPRESSION: 1. Small loculated bilateral pleural effusions with mild pleural thickening. Calcified bilateral pleural plaques which can be seen with asbestos related lung disease. 2. Mild/moderate bibasilar atelectasis/scarring. 3. Moderate hiatal hernia. Fluid/debris in the distal esophagus. 4. Mild secretions in the distal trachea. 5. Emphysema and coronary artery disease. 6. Ectasia of the ascending thoracic aorta. Reading Location: [facility]
[2024-06-28] MEDS: Methylprednisolone Sod Succ 40 MG/ML VIAL IV ×2 (14:38→20:48)
[2024-06-28 15:03] LABS: Mucous, Urine 0 SEEN /hpf (<or=2+)
[2024-06-28 15:17] LABS: Color, Urine Straw (Yellow); Glucose, Dipstick Normal (Normal); Ketone-Dipstick 5 mg/dl (Negative); Leukocyte Esterase-Dipstick 500 /ul (Negative); Nitrite-Dipstick Positive (Negative); Occult Blood-Urine 25 /ul (Negative); Protein-Dipstick 100 mg/dl (Negative); Specific Gravity, Urine 1.015 (1.002-1.030); Urine Bilirubin Dipstick Negative (Negative); Urine Clarity Sl. Cloudy (Clear); Urine Urobilinogen Normal (Normal)
[2024-06-28 15:58] LABS: Amorphous Sediment 1+ URATE; Bacteria 1+ /hpf (None Seen); Red Blood Cells-Urine 0-5 SEEN /hpf (0-5); Squamous Epithelial Cells - UA 0-5 SEEN /hpf (0-5); White Blood Cells >100 SEEN /hpf (0-5)
[2024-06-28] MEDS: Atorvastatin Calcium 20 MG Tablet PO (20:46)
[2024-06-28] MEDS: guaiFENesin 1,200 MG Tablet 1200 MG PO (20:46)
[2024-06-28] MEDS: 0.9% Saline Lock 10 ML Syringe IV (20:51)
[2024-06-29] VITALS (12 sets, daily range): BP systolic 135–155; BP diastolic 42–63; PULSE 32–74; RESP 18–24; TEMP 36.1–36.7; O2SAT 89–99; BMI 24.4
[2024-06-29] MEDS: Ipratropium/Albuterol Sulfate 3 ML AMPUL.NEB INHALATION ×3 (00:28→20:30)
--- NOTE | 2024-06-29 00:30 | CPS ---
pt has wheezing in his throat more than in lungs. RN notified of RT assessment.
[2024-06-29] MEDS: Methylprednisolone Sod Succ 40 MG/ML VIAL IV ×2 (06:21→22:31)
[2024-06-29] MEDS: 0.9% Saline Lock 10 ML Syringe IV (06:21)
--- NOTE | 2024-06-29 10:36 | PN.HOSP_ITS ---
Subjective Subjective Doing well, no issues overnight. He was placed on oxygen because he supposed to wear CPAP at night. No documentation of hypoxia Objective Data Objective Data Vital Signs: Vital Signs Temp Pulse Resp BP Pulse Ox O2 Del Method O2 Flow Rate 97.9 F 33 L 18 140/42 H 95 Nasal Cannula 2 06/29/24 06:26 06/29/24 07:05 06/29/24 07:05 06/29/24 06:26 06/29/24 07:05 06/29/24 10:00 06/29/24 10:00 Oxygen Flow Rate (L/min) 2 Oxygen Delivery Method Nasal Cannula Weight: 165 lb 5.547 oz Body Mass Index (BMI) 24.4 Intake & Output: Intake and Output for Last 24 Hours 06/28/24 06/29/24 06/30/24 03:59 03:59 03:59 Intake Total 425 / 425 1588.33 / 1588.33 Output Total 350 / 350 200 / 200 Balance 425 / 425 1238.33 / 1238.33 -200 / -200 Lab / Micro Data 06/28/24 05:37 06/28/24 05:37 Labs: Laboratory Results - last 24 hr 06/28/24 04:14: Urine Color Straw, Urine Clarity Sl. Cloudy, Urine pH 6.0, Ur Specific Mize 1.015, Urine Protein 100 H, Urine Glucose (UA) Normal, Urine Ketones 5 H, Urine Occult Blood 25 H, Urine Nitrite Positive H, Urine Bilirubin Negative, Urine Urobilinogen Normal, Ur Leukocyte Esterase 500 H, Urine RBC 0-5 SEEN, Urine WBC >100 SEEN, Ur Squamous Epith Cells 0-5 SEEN, Amorphous Sediment 1+ URATE, Urine Bacteria 1+, Urine Mucus 0 SEEN Micro: Microbiology 06/28/24 04:14 Urine, Clean Catch Legionella Antigen - Final 06/28/24 04:14 Urine, Clean Catch Streptococcus pneumoniae Antigen (M - Final 06/27/24 21:10 Mucosa - Nose SARS-CoV-2, Influenza & RSV (PCR) - Final Rhythm Strip Rhythm Strip: Junctional rhythm Rate: 43 Ectopy: PVC(s) Physical Exam Narrative General: Alert, Oriented x3, Cooperative, No apparent distress HEENT: Atraumatic, PERRLA, EOMI, Normocephalic Oral: Moist Mucosa Neck: Supple, No JVD Lungs: Diminished, Normal air movement, No rhonchi, wheeze, No rales Cardiovascular: Sinus bradycardia, Regular Rhythm, Normal S1, Normal S2, No murmurs Abdomen: Soft, Non Tender, Non-Distended, No Hepato-splenomegaly Extremities: No edema, Capillary Refill Less than 3 Seconds Skin: No rashes, No breakdown Musculoskeletal: No Tenderness to Palpation of Joints or Extremities Neurological: No focal neurological deficits, Motor Exam 5/5 strength throughout, Sensory exam intact to light touch and pain Psych/Mental Status: Normal Affect, Appropriate Assessment & Plan Assessment/Plan (1) Acute exacerbation of chronic obstructive pulmonary disease: (2) Elevated troponin: (3) Complete heart block: PLAN: Plan 1. Complete heart block/troponin elevation due to demand ischemia with heart rate in the low Oxecta, regular talk to crisis fine they have questions okay thanks Complete heart block -All 3 EKG showed complete heart block -N.p.o. after midnight -Patient hemodynamically stable so I think we can continue to watch him on telemetry -Echocardiogram in a.m. -TSH is normal -Patient is not on any rate modulating drugs -Plan is for pacemaker tomorrow with Dr. Garcia per cardiology note Acute exacerbation of COPD -Patient markedly wheezy on exam -No cough or change in sputum production so we will discontinue antibiotics--> reviewed imaging and no infiltrate noted -Solu-Medrol 40 every 8 -Start Mucinex 1200 p.o. 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
--- NOTE | 2024-06-29 10:36 | PCM.PN.HOSP ---
Subjective Subjective Doing well, no issues overnight. He was placed on oxygen because he supposed to wear CPAP at night. No documentation of hypoxia Objective Data Objective Data Vital Signs: Vital Signs Temp Pulse Resp BP Pulse Ox O2 Del Method O2 Flow Rate 97.9 F 33 L 18 140/42 H 95 Nasal Cannula 2 06/29/24 06:26 06/29/24 07:05 06/29/24 07:05 06/29/24 06:26 06/29/24 07:05 06/29/24 10:00 06/29/24 10:00 Oxygen Flow Rate (L/min) 2 Oxygen Delivery Method Nasal Cannula Weight: 165 lb 5.547 oz Body Mass Index (BMI) 24.4 Intake & Output: Intake and Output for Last 24 Hours 06/28/24 06/29/24 06/30/24 03:59 03:59 03:59 Intake Total 425 / 425 1588.33 / 1588.33 Output Total 350 / 350 200 / 200 Balance 425 / 425 1238.33 / 1238.33 -200 / -200 Lab / Micro Data 06/28/24 05:37 06/28/24 05:37 Labs: Laboratory Results - last 24 hr 06/28/24 04:14: Urine Color Straw, Urine Clarity Sl. Cloudy, Urine pH 6.0, Ur Specific [place] 1.015, Urine Protein 100 H, Urine Glucose (UA) Normal, Urine Ketones 5 H, Urine Occult Blood 25 H, Urine Nitrite Positive H, Urine Bilirubin Negative, Urine Urobilinogen Normal, Ur Leukocyte Esterase 500 H, Urine RBC 0-5 SEEN, Urine WBC >100 SEEN, Ur Squamous Epith Cells 0-5 SEEN, Amorphous Sediment 1+ URATE, Urine Bacteria 1+, Urine Mucus 0 SEEN Micro: Microbiology 06/28/24 04:14 Urine, Clean Catch Legionella Antigen - Final 06/28/24 04:14 Urine, Clean Catch Streptococcus pneumoniae Antigen (M - Final 06/27/24 21:10 Mucosa - Nose SARS-CoV-2, Influenza & RSV (PCR) - Final Rhythm Strip Rhythm Strip: Junctional rhythm Rate: 43 Ectopy: PVC(s) Physical Exam Narrative General: Alert, Oriented x3, Cooperative, No apparent distress HEENT: Atraumatic, PERRLA, EOMI, Normocephalic Oral: Moist Mucosa Neck: Supple, No JVD Lungs: Diminished, Normal air movement, No rhonchi, wheeze, No rales Cardiovascular: Sinus bradycardia, Regular Rhythm, Normal S1, Normal S2, No murmurs Abdomen: Soft, Non Tender, Non-Distended, No Hepato-splenomegaly Extremities: No edema, Capillary Refill Less than 3 Seconds Skin: No rashes, No breakdown Musculoskeletal: No Tenderness to Palpation of Joints or Extremities Neurological: No focal neurological deficits, Motor Exam 5/5 strength throughout, Sensory exam intact to light touch and pain Psych/Mental Status: Normal Affect, Appropriate Assessment & Plan Assessment/Plan (1) Acute exacerbation of chronic obstructive pulmonary disease: (2) Elevated troponin: (3) Complete heart block: PLAN: Plan 1. Complete heart block/troponin elevation due to demand ischemia secondary to bradycardia and COPD/essential HTN/HLD/ascending aortic aneurysm ? Continue with pacemaker placement today ? She has remained hemodynamically stable ? Echocardiogram is pending ? TSH was normal ? Continue with his home losartan on discharge after pacemaker placement ? His aortic aneurysm was 4.[address] scan 2021 and he is being followed up as an outpatient, he has a scan in the summer pending ? Continue with Lipitor 2. Acute COPD exacerbation/HARDEEP/continued tobacco abuse ? Antibiotics were discontinued ? Continue with steroids, can transition to prednisone on discharge with the taper ? Maintaining oxygen saturations on room air unclear as to why he was placed on oxygen overnight as no hypoxic markers were documented ? Continue with CPAP on discharge ? Discussed tobacco cessation 3. Ankylosing spondylitis ? Stable ? Continue with dupilumab DVT: Heparin Charges/Coding Visit Charges Inpatient E&M: 01769 Subs Hosp L2
--- NOTE | 2024-06-29 10:40 | CASEMGMT ---
RN ODALIS Face to Face with patient for initial transition planning/care coordination assessment. RN CM introduced self and role at [facility]. Patient lying in bed, alert and oriented. Patient willing to participate in assessment and is able to answer all questions appropriately. Care providers, pharmacy, and demographics verified. Strata: 2 PCP: Atilio Specialists: Christophe, music promoter; Demarco, managed services sales consultant; Zack, Pharmaceutical Process Engineer; Preferred Pharmacy: [facility] Insurance: [facility] supplement Prescription Benefit: yes Living Will/HPOA: yes, sister Nimco Mcdaniel LNOK: sister, niece Living Arrangements: Patient lives alone in a single story home with rampt to enter the home and elevator to the basement. Patient is independent at home. Transportation: Sister DME/HHC: Patient has shower chair, grab bars, BSC, raised toilet, cane, walker, pulse ox, and bipap at home. No previous HHC or SNF. Patient wishes to discharge home, denies need for home health at this time. Patient states he has no further needs or concerns at this time. CM to follow for discharge planning needs that may arise. Disposition Plan: Patient to discharge home with family support and follow-up plans in place. Lindsey NUNEZ, RN, CM
--- NOTE | 2024-06-29 14:09 | PN.CARD_ITS ---
Subjective Subjective Patient seen and evaluated. Underwent permanent pacemaker this afternoon for complete heart block Objective Data Vital Signs: Vital Signs Temp Pulse Resp BP Pulse Ox O2 Del Method O2 Flow Rate 97.7 F L 35 L 20 H 155/48 H 99 Nasal Cannula 2 06/29/24 12:00 06/29/24 12:00 06/29/24 12:00 06/29/24 12:00 06/29/24 12:00 06/29/24 12:00 06/29/24 12:00 Oxygen Flow Rate (L/min) 2 Oxygen Delivery Method Nasal Cannula Weight: 165 lb 5.547 oz Body Mass Index (BMI) 24.4 Intake & Output: Intake and Output for Last 24 Hours 06/27/24 06/28/24 06/29/24 23:59 23:59 23:59 Intake Total 425 / 425 1528.33 / 1528.33 60 / 60 Output Total 350 / 350 200 / 200 Balance 425 / 425 1178.33 / 1178.33 -140 / -140 Lab / Micro Data 06/28/24 05:37 06/28/24 05:37 Labs: Laboratory Results - last 24 hr 06/28/24 04:14: Urine Color Straw, Urine Clarity Sl. Cloudy, Urine pH 6.0, Ur Specific [place] 1.015, Urine Protein 100 H, Urine Glucose (UA) Normal, Urine Ketones 5 H, Urine Occult Blood 25 H, Urine Nitrite Positive H, Urine Bilirubin Negative, Urine Urobilinogen Normal, Ur Leukocyte Esterase 500 H, Urine RBC 0-5 SEEN, Urine WBC >100 SEEN, Ur Squamous Epith Cells 0-5 SEEN, Amorphous Sediment 1+ URATE, Urine Bacteria 1+, Urine Mucus 0 SEEN Micro: Microbiology 06/28/24 04:14 Urine, Clean Catch Legionella Antigen - Final 06/28/24 04:14 Urine, Clean Catch Streptococcus pneumoniae Antigen (M - Final Rhythm Strip Rhythm Strip: Junctional rhythm Rate: 43 Ectopy: PVC(s) Cardiology Labs/Tests 06/28/24 04:14: Urine Color Straw, Urine Clarity Sl. Cloudy, Urine pH 6.0, Ur Specific [place] 1.015, Urine Protein 100 H, Urine Glucose (UA) Normal, Urine Ketones 5 H, Urine Occult Blood 25 H, Urine Nitrite Positive H, Urine Bilirubin Negative, Urine Urobilinogen Normal, Ur Leukocyte Esterase 500 H, Urine RBC 0-5 SEEN, Urine WBC >100 SEEN Rhythm: EKG: ECHO: Stress Test: Cardiac Cath: PCI: CT Surgery: Holter monitor: EPS: PPM: CXR: Chest CT Scan: Physical Exam Const alert, oriented x3 and no apparent distress General Appearance: cooperative HEENT hearing grossly normal bilaterally Head and Scalp: atraumatic Eyes EOMs intact bilaterally Neck General: normal visual inspection Chest inspection of chest normal and palpation of chest normal Resp normal respiratory effort Auscultation: clear to auscultation bilaterally Cardio regular rate, regular rhythm, S1 normal heart sound and S2 normal heart sound Jugular Venous Distention: JVD GI normal to inspection, nondistended, normoactive bowel sounds Extremity normal capillary refill and no pedal edema Peripheral Pulses: Yes pulses 2+ throughout and femoral pulses present Skin no rashes or lesions noted Neuro oriented x3 and CN's II-XII intact bilaterally Psych Appearance: grossly normal and appropriate Assessment & Plan Assessment/Plan (1) Complete heart block: PLAN: Patient presented with complete heart block. He underwent placement of a dual-chamber pacemaker this afternoon without incident. The plan will be to check it in a.m. with a chest x-ray. (2) Ascending aortic aneurysm: QUALIFIERS: Presence of rupture: without rupture Qualified Code(s): I71.21 - Aneurysm of the ascending aorta, without rupture PLAN: Patient with a history of ascending aortic aneurysm. Still in the moderate range. * Patient will need to have blood pressure under better control. (3) Essential hypertension: PLAN: Blood pressure uncontrolled at this time. Will recommend an ARB with losartan 50 mg a day. (4) Hyperlipidemia: QUALIFIERS: Hyperlipidemia type: mixed hyperlipidemia Qualified Code(s): E78.2 - Mixed hyperlipidemia PLAN: Continue aggressive risk factor modification.
--- NOTE | 2024-06-29 14:14 | CL.IE_ITS ---
Patient: WILIAN CAMPBELL Study Date: 06/29/2024 Performing: Fazal Pal MD : 1945 Age: 79 Gender: male PROCEDURES PERFORMED [id number])INITIAL PACER INSERT+DUAL LEADS INDICATIONS Atrial fibrillation and complete heart block PROCEDURE DETAILS The patient was brought to the Catheterization Lab in the postabsorptive nonsedated state. Informed consent was obtained prior to the procedure. Local anesthetic was given subcutaneously to the left subclavian region with Lidocaine 2%. Access was achieved and a guidewire was advanced into the left subclavian vein. Incision was made to the left subclavicular area. A peel-away sheath was inserted into the left subclavian vein. PPM ventricular lead was inserted / positioned to right ventricular apex. PPM atrial lead was inserted / positioned to the right atrial appendage. The Atrial lead sutured in place with 2-0 Silk. The Ventricular PM lead sutured in place with 2-0 Silk. PPM generator was attached to the lead(s) and inserted into the pocket. Device pocket was irrigated with antibiotic. Subcutaneous closure was completed with 3-0 Vicryl. Skin closure was completed with 4-0 Vicryl. The patient tolerated the procedure well. Estimated Blood Loss: 10 ml's IMPLANTED / EX-PLANTED DEVICES IMPLANTED DEVICE(S): PPM Ventricular lead - Wool Handler: [place] [employer], Model # INGEVITY , Serial # [id number] PPM Atrial lead - Wool Handler: [place] [employer], Model # INGEVITY , Serial # [id number] PPM Generator - Wool Handler: [employer], Model # [place] RONEN ULLOA L111 , Serial # [id number] DEVICE PARAMETERS ATRIAL LEAD PARAMETERS: P wave- 0.5 (mV) Current- 1.4 (mA) threshold- 0.7 @0.4MS (V) impedence- 518 (OHMS) VENTRICULAR LEAD PARAMETERS: R wave- (mV) Current- 1.3 (mA) threshold- 1.0 @0.4ms (V) impedence- 769 (OHMS) 10V test, no diaphragmatic capture DEVICE PARAMETERS: Mode- DDD Lower rate- 60 Upper rate- 130 CONCLUSIONS / RECOMMENDATIONS Device Conclusions: Successful implantation of a dual chamber pacemaker Device Recommendations: Follow up with Primary Care Physician PROCEDURE MEDICATIONS Versed 1 mg IV Fentanyl 50 mcg IV Fentanyl 25 mcg IV Oxygen: 2 L/min via nasal cannula Antibiotic given in appropriate timeframe. Benadryl 50 mg IV 06/29/2024 12:59:04 Ancef 2 Gm IV @ 06/29/2024 13:05:56 Solu-medrol 125 mg IV 06/29/2024 12:58:56 Signed By Fazal Pal MD On 06/29/2024 14:14:01 Fazal Pal MD
[2024-06-29] MEDS: guaiFENesin 1,200 MG Tablet 1200 MG PO (22:30)
[2024-06-29] MEDS: Atorvastatin Calcium 20 MG Tablet PO (22:30)
[2024-06-30 03:15] VITALS: BMI 23.4
[2024-06-30 04:31] VITALS: BP 158/70; PULSE 65; RESP 18; TEMP 36.6; O2SAT 96
--- NOTE | 2024-06-30 05:30 | RAD_ITS ---
EXAM: Chest inspiration/expiration two views CLINICAL HISTORY: Post permanent ICD/pacemaker COMPARISON: 06/27/2024 TECHNIQUE: Upright AP portable view during inspiration and expiration FINDINGS: Dual lead pacemaker now seen. No pneumothorax. Possible very small left pleural effusion. Platelike area of atelectasis right lower lung. Patchy ill-defined perihilar lower zone predominant airspace opacities may represent pulmonary edema, clinically correlate. [id number] hiatal hernia. RAD/Chest Insp/Exp 2 View IMPRESSION: Dual lead pacemaker now seen. No pneumothorax. Possible very small left pleural effusion. Platelike area of atelectasis right lower lung. Patchy ill-defined perihilar lower zone predominant airspace opacities may repr esent pulmonary edema, clinically correlate. Reading Location: [id number]
[2024-06-30] MEDS: 0.9% Saline Lock 10 ML Syringe IV (05:47)
[2024-06-30] MEDS: Methylprednisolone Sod Succ 40 MG/ML VIAL IV (05:47)
[2024-06-30] MEDS: Ipratropium/Albuterol Sulfate 3 ML AMPUL.NEB INHALATION (07:37)
[2024-06-30 07:38] VITALS: PULSE 62; RESP 22; O2SAT 93
--- NOTE | 2024-06-30 08:45 | PCM.PN.CARD ---
Subjective Subjective Patient seen and evaluated. Pacemaker interrogated this morning Objective Data Vital Signs: Vital Signs Temp Pulse Resp BP Pulse Ox O2 Del Method O2 Flow Rate 97.8 F 65 18 158/70 H 96 Nasal Cannula 2 06/30/24 04:31 06/30/24 04:31 06/30/24 04:31 06/30/24 04:31 06/30/24 04:31 06/30/24 05:00 06/30/24 05:00 Oxygen Flow Rate (L/min) 2 Oxygen Delivery Method Nasal Cannula Weight: 158 lb 15.253 oz Body Mass Index (BMI) 23.4 Intake & Output: Intake and Output for Last 24 Hours 06/28/24 06/29/24 06/30/24 23:59 23:59 23:59 Intake Total 1528.33 / 1528.33 310 / 310 Output Total 350 / 350 200 / 600 1000 / 1000 Balance 1178.33 / 1178.33 110 / -290 -1000 / -1000 Lab / Micro Data 06/28/24 05:37 06/28/24 05:37 Rhythm Strip Rhythm Strip: Junctional rhythm Rate: 43 Ectopy: PVC(s) Cardiology Labs/Tests Rhythm: EKG: ECHO: Stress Test: Cardiac Cath: PCI: CT Surgery: Holter monitor: EPS: PPM: CXR: Chest CT Scan: Radiography Diagnostic Testing: Radiology Impression Echocardiogram 06/27/24 22:17 Interpretation Summary Normal LV size. The left ventricular ejection fraction is 60 %. Moderate focal aortic valve calcification. Mild aortic stenosis. Moderately dilated aortic root. Ordering Physician: Tony Benoit Referring Physician: Lucia Trimble Performed By: Emery Liriano RCS Chest X-Ray 06/30/24 05:30 IMPRESSION: Dual lead pacemaker now seen. No pneumothorax. Possible very small left pleural effusion. Platelike area of atelectasis right lower lung. Patchy ill-defined perihilar lower zone predominant airspace opacities may represent pulmonary edema, clinically correlate. Reading Location: [facility] Physical Exam Const alert, oriented x3 and no apparent distress General Appearance: cooperative HEENT hearing grossly normal bilaterally Head and Scalp: atraumatic Eyes EOMs intact bilaterally Neck General: normal visual inspection Chest inspection of chest normal and palpation of chest normal Resp normal respiratory effort Auscultation: clear to auscultation bilaterally Cardio regular rate, regular rhythm, S1 normal heart sound and S2 normal heart sound Jugular Venous Distention: JVD GI normal to inspection, nondistended, normoactive bowel sounds Extremity normal capillary refill and no pedal edema Peripheral Pulses: Yes pulses 2+ throughout and femoral pulses present Skin no rashes or lesions noted Neuro oriented x3 and CN's II-XII intact bilaterally Psych Appearance: grossly normal and appropriate Assessment & Plan Assessment/Plan (1) Complete heart block: PLAN: Patient presented with complete heart block. He underwent placement of a dual-chamber pacemaker on Saturday without incident. Chest x-ray today demonstrates good positioning. Patient has abnormal baseline chest x-ray. Patient will be discharged for outpatient follow-up. (2) Ascending aortic aneurysm: QUALIFIERS: Presence of rupture: without rupture Qualified Code(s): I71.21 - Aneurysm of the ascending aorta, without rupture PLAN: Patient with a history of ascending aortic aneurysm. Still in the moderate range. Patient will need to have blood pressure under better control. (3) Essential hypertension: PLAN: Blood pressure uncontrolled at this time. Will recommend an ARB with losartan 50 mg a day. (4) Hyperlipidemia: QUALIFIERS: Hyperlipidemia type: mixed hyperlipidemia Qualified Code(s): E78.2 - Mixed hyperlipidemia PLAN: Continue aggressive risk factor modification.
--- NOTE | 2024-06-30 08:48 | DCINST_ITS ---
Discharge Instructions Diet Discharge Diet: No restrictions (as you feel able. No excessive stretching. No lifting your arm over your head (keep elbow below shoulder level) until seen for your pacemaker check. Do not lift your elbow away from your side until you are seen for your first visit. Keep the arm sling on if it helps remind you not to lift your arm.) DC O2, CPAP, BIPAP needs Home O2 Discharge instructions: Yes Type of respiratory needs?: Oxygen Oxygen frequency: With Sleeping Oxygen liters per minute when sleepin Dressing / Incision Discharge Activity: May Not Drive May shower in (days): 2 Additional Activity Instructions:: May shower or bathe on [day 3]. Do not scrub the incision or soak in the tub. Just wash with soap and let the water run over the incision. Gently pat dry with towel. Medications: Take your pain medication as directed. Refer to your discharge instruction sheet for a list of medications you are to take. Dressing / Incision Call your doctor if your incision/area has: Continuous Slow Oozing, Sudden Increased Bleeding, Increased Pain/ Swelling, Increased Redness, Foul Smelling Discharge and Swelling at the incision site Call your doctor if you observe: Fever of 101 or Higher, Shortness of breath, Dizziness, Fainting spells, Swelling in the ankles, Chest pain, Prolonged hiccupping and Increased palpitations (irregular heartbeat) Suture Line Care: Avoid Pulling/Pushing and Avoid Pinching/Bending Remove Dressing in: 4 days Cleanse incision/area with: Do not get Incision Wet and Keep Dressing Clean & Dry Additional Dressing/Incision Instructions:: When dressing is removed, wash and dry incision. Keep covered with a light bandage if it is rubbing against your clothing. Do not cover the incision with an airtight bandage. Change the bandage daily. Do not remove steri strips. The strips will fall off on their own. Follow Up Care Please Follow Up With: Fazal Pal MD When: Pacemaker follow-up on July 07 at 10 AM. Test Results: Test results from this visit will be discussed in further detail at your follow- up appointment, if applicable. Discharge Plan Admission Admit Date/Time: 06/27/24 22:02 Attending Provider: Alberto Gupta Primary Care Provider: Lucia Trimble Consulting Providers: Tony Benoit; Andriy Macdonald; April Napoles Discharge Orders/Prescriptions Prescriptions: No Action PreserVision AREDS-2 [id number] uu-mfam-lv-mg capsule 1 tablet PO DAILY Rx Instructions: administer with meals Dupixent Pen 300 mg/2 mL pen injector 300 mg subcut Q2W cholecalciferol (vitamin D3) 125 mcg (5,000 unit) capsule 125 mcg PO DAILY Trelegy Ellipta 100-62.5-25 mcg blister with device 1 inh inhalation DAILY Qty: 3 3RF losartan 50 mg tablet 50 mg PO DAILY Qty: 90 1RF simvastatin 40 mg tablet 40 mg PO DAILY Qty: 90 1RF Referrals / Follow Up: Lucia Trimble MD [Primary Care Provider] -
[2024-06-30 09:00] VITALS: BP 156/58; PULSE 60; RESP 20; TEMP 36.4; O2SAT 95
[2024-06-30] MEDS: Losartan Potassium 50 MG Tablet PO (09:08)
[2024-06-30] MEDS: Cholecalciferol (Vit D3) 125 MCG CAPSULE (5,000 UNITS) PO (09:08)
[2024-06-30] MEDS: Pantoprazole Sodium 40 MG Tablet PO (09:08)
[2024-06-30 10:06] LABS: Anion Gap 14 (5-15); BUN 56 mg/dL (4-19); BUN/Creat Ratio 43.8 RATIO (10-20); Calcium,Total 9.2 mg/dL (7.6-11.0); Carbon Dioxide 16.6 mmol/L (21.0-32.0); Chloride 111 mmol/L (98-108); Creatinine, Serum 1.28 mg/dL (0.70-1.20); EST Glomerular Filtration Rate 57 (>60); Glucose 190 mg/dL (70-99); Potassium 4.8 mmol/L (3.3-5.1); Sodium Level 141 mmol/L (133-145)
[2024-06-30 10:45] VITALS: BP 156/58; PULSE 60; RESP 20; TEMP 36.4; O2SAT 95
--- NOTE | 2024-06-30 10:53 | DCINST_ITS ---
Discharge Instructions Diet Discharge Diet: No restrictions (as you feel able. No excessive stretching. No lifting your arm over your head (keep elbow below shoulder level) until seen for your pacemaker check. Do not lift your elbow away from your side until you are seen for your first visit. Keep the arm sling on if it helps remind you not to lift your arm.) DC O2, CPAP, BIPAP needs Home O2 Discharge instructions: No Dressing / Incision Discharge Activity: Return to Normal Activity May shower in (days): 2 Additional Activity Instructions:: May shower or bathe on [day 3]. Do not scrub the incision or soak in the tub. Just wash with soap and let the water run over the incision. Gently pat dry with towel. Medications: Take your pain medication as directed. Refer to your discharge instruction sheet for a list of medications you are to take. Dressing / Incision Call your doctor if your incision/area has: Continuous Slow Oozing, Sudden Increased Bleeding, Increased Pain/ Swelling, Increased Redness, Foul Smelling Discharge and Swelling at the incision site Call your doctor if you observe: Fever of 101 or Higher, Shortness of breath, Dizziness, Fainting spells, Swelling in the ankles, Chest pain, Prolonged hiccupping and Increased palpitations (irregular heartbeat) Suture Line Care: Avoid Pulling/Pushing and Avoid Pinching/Bending Cleanse incision/area with: Do not get Incision Wet and Keep Dressing Clean & Dry Additional Dressing/Incision Instructions:: When dressing is removed, wash and dry incision. Keep covered with a light bandage if it is rubbing against your clothing. Do not cover the incision with an airtight bandage. Change the bandage daily. Do not remove steri strips. The strips will fall off on their own. Follow Up Care Please Follow Up With: Fazal Pal MD Test Results: Test results from this visit will be discussed in further detail at your follow- up appointment, if applicable. Discharge Plan Admission Admit Date/Time: 06/27/24 22:02 Attending Provider: Alberto Gupta Primary Care Provider: Lucia Trimble Consulting Providers: Tony Benoit; Andriy Macdonald; April Napoles Discharge Orders/Prescriptions Prescriptions: New prednisone 20 mg tablet 40 mg PO DAILY Qty: 10 0RF Continued PreserVision AREDS-2 [id number] xw-kzyh-kc-mg capsule 1 tablet PO DAILY Rx Instructions: administer with meals Dupixent Pen 300 mg/2 mL pen injector 300 mg subcut Q2W cholecalciferol (vitamin D3) 125 mcg (5,000 unit) capsule 125 mcg PO DAILY Trelegy Ellipta 100-62.5-25 mcg blister with device 1 inh inhalation DAILY Qty: 3 3RF losartan 50 mg tablet 50 mg PO DAILY Qty: 90 1RF simvastatin 40 mg tablet 40 mg PO DAILY Qty: 90 1RF Referrals / Follow Up: Lucia Trimble MD [Primary Care Provider] - Within 1 Week Fazal Pal MD [Med Staff - Active Staff] - Within 2 Weeks Disposition Disposition (needs filled in before D/C Order can be placed): Home, Self Care
--- NOTE | 2024-06-30 11:42 | PHA.DC_ITS ---
Pharmacy [facility] Pharmacy Service has performed discharge medication reconciliation and counseling for this patient. The patient's discharge medication list was reviewed for discrepancies and discrepancies were resolved. The patient was counseled on the following discharge medications and changes in medications for homegoing were reviewed. The Reason for Use, instructions for use, and potential side effects were reviewed for all new medications. The patient's questions regarding all of their medications were answered. 1. Prednisone 40 mg PO Daily x 5 days The patient was able to verbally demonstrate an understanding of their discharge medications. The patient was counselled on new medication by pharmacy messenger Cristobal. Medications at Discharge Home Medications vit C 250 mg-vit E 90 mg-zinc 40 mg-copper 1 ar-ozkxez-hfrtmd capsule (PreserVision AREDS-2) 1 tablet PO DAILY 06/21/20 dupilumab 300 mg/2 mL subcutaneous pen injector (Dupixent) 300 mg subcut Q2W 07/11/21 cholecalciferol (vitamin D3) 125 mcg (5,000 unit) capsule 125 mcg PO DAILY 01/14/23 fluticasone fur. 100 mcg-umeclid 62.5 mcg-vilant 25 mcg inhalat.powder (Trelegy Ellipta) 1 inh inhalation DAILY #3 ea 05/08/24 simvastatin 40 mg tablet 40 mg PO DAILY #90 tabs 05/19/24 losartan 50 mg tablet 50 mg PO DAILY #90 tabs 05/27/24 prednisone 20 mg tablet 40 mg (2 x 20 mg) PO DAILY #10 tabs 06/30/24
[2024-06-30 14:26] VITALS: O2SAT 95
[2024-06-30 14:30] VITALS: BP 143/55; PULSE 66; RESP 20; TEMP 36.5; O2SAT 94
--- NOTE | 2024-06-30 14:30 | CASEMGMT ---
Patient has order for discharge. RN CM in to discuss needs at discharge, sister at bedside. Patient and sister deny needs or help at discharge. Patient had no further questions or concerns.
--- NOTE | 2024-06-30 16:07 | DS.PCM_ITS ---
Providers Date of Admission: 06/27/24 Primary Care Physician: Dr. Lucia Trimble MD Consultations 06/27/24 22:19 Consult: Cardiology Routine Consulting Provider: Andriy Macdonald Reason for Consult: Junctional Bradycardia EMERGENT Consult: No MD Notified: Yes Date Notified: 06/28/24 Time Notified: 06:45 Method of Notification: Text Method of Consult:: In-Person Reason For Visit: MULTIFOCAL PNA, AE COPD, DEHYDRATION & Diagnosis Discharge Diagnosis (1) Complete heart block: Status: Acute Code(s): I44.2 - Atrioventricular block, complete (2) Ascending aortic aneurysm: Status: Chronic Code(s): I71.2 - Thoracic aortic aneurysm, without rupture Qualifiers: Presence of rupture: without rupture Qualified Code(s): I71.21 - Aneurysm of the ascending aorta, without rupture (3) Essential hypertension: Status: Chronic Code(s): I10 - Essential (primary) hypertension (4) Hyperlipidemia: Status: Chronic Code(s): E78.5 - Hyperlipidemia, unspecified Qualifiers: Hyperlipidemia type: mixed hyperlipidemia Qualified Code(s): E78.2 - Mixed hyperlipidemia Medications at Discharge Home Medications vit C 250 mg-vit E 90 mg-zinc 40 mg-copper 1 ow-ndherm-kluprd capsule (PreserVision AREDS-2) 1 tablet PO DAILY eye health 06/21/20 dupilumab 300 mg/2 mL subcutaneous pen injector (Dupixent) 300 mg subcut Q2W eczema 07/11/21 cholecalciferol (vitamin D3) 125 mcg (5,000 unit) capsule 125 mcg PO DAILY supplement 01/14/23 fluticasone fur. 100 mcg-umeclid 62.5 mcg-vilant 25 mcg inhalat.powder (Trelegy Ellipta) 1 inh inhalation DAILY breathing #3 ea 05/08/24 simvastatin 40 mg tablet 40 mg PO DAILY cholesterol #90 tabs 05/19/24 losartan 50 mg tablet 50 mg PO DAILY blood pressure #90 tabs 05/27/24 prednisone 20 mg tablet 40 mg (2 x 20 mg) PO DAILY #10 tabs 06/30/24 Hospital Course Operations None Procedures 2-D Echocardiogram and - (Pacemaker placement) Summary of Care Provided Minutes Spent on Discharge: 34 Hospital Course: Per HPI: WILIAN CAMPBELL, is a 79 M with a past medical history of essential hypertension; on losartan, hyperlipidemia; on simvastatin, history of tobacco abuse; subsequent COPD, previously on home oxygen, history of chest tube placement, HARDEEP, history of ankylosing spondylitis, history of ~4.2 cm ascending aortic aneurysm (2021), history of RBBB, history of EtOH abuse, history of macular degeneration, history of GERD; with esophageal diverticulum, listed allergy to iodinated contrast media (nausea) and OA; with chronic back pain who presents to [facility] ER complaining of shortness of breath and wheezing. Mr. Campbell reports his symptoms began approximately 2 days prior to admission with a gradual-onset of dyspnea on exertion that progressed to shortness of breath at rest. He also admits to a chronic cough productive of yellowish sputum that is unchanged from previous with worsening wheezing. He denies associated fever, chills, runny nose, sore throat, ear pain, chest pain, palpitations, heart racing, headache or rash. In the ER he was noted to have CXR suggestive of Multifocal Pneumonia complicated by clinical evidence of AE COPD with Acute Respiratory Insufficiency compounded by laboratory evidence of Dehydration with BUN/creatinine ratio of 28.9 present on admission also suspected to be culminating to cause Junctional Bradycardia of ~43 bpm present on admission and he was then admitted to the PCU for ongoing care for status expected to extend beyond 2 midnights. Hospital Course: 1. Complete heart block status post pacemaker placement on 06/29/2024/troponin elevation due to demand ischemia secondary to bradycardia and COPD/essential HTN/HLD/ascending aortic aneurysm?79-year-old male presented to the hospital with increased shortness of breath and wheezing. It was felt that he was in a COPD exacerbation at the time but was also found to be bradycardic on EKG. Cardiology was consulted given the finding of complete heart block and they recommended pacemaker placement. This was done on 06/29/2024, and since then he has been doing well and not requiring any oxygen at rest. He does wear CPAP at night which he will continue to do. He will need to follow-up with cardiology as an outpatient in the next week or 2 as well as with his PCP within the next 3 to 5 days. Echocardiogram was unremarkable with an EF of 60%, he does have a history of an aortic aneurysm that is 4.2 cm scan in 2021 that is being monitored as an outpatient. I discussed with him the plan for discharge today he expressed understanding of the risks and benefits of going home and would like to go home today. 2. Acute COPD exacerbation/HARDEEP/continued tobacco abuse?will continue with steroids on discharge for few days, is not requiring any oxygen, and he will continue to wear CPAP at night. We did discuss tobacco cessation during his hospitalizations. 3. Ankylosing spondylitis chronic medical condition which complicates care. His home medications were continued where appropriate Physical Exam Narrative General: Alert, Oriented x3, Cooperative, No apparent distress HEENT: Atraumatic, PERRLA, EOMI, Normocephalic Oral: Moist Mucosa Neck: Supple, No JVD Lungs: Diminished, Normal air movement, No rhonchi, wheeze, No rales Cardiovascular: Sinus bradycardia, Regular Rhythm, Normal S1, Normal S2, No murmurs Abdomen: Soft, Non Tender, Non-Distended, No Hepato-splenomegaly Extremities: No edema, Capillary Refill Less than 3 Seconds Skin: No rashes, No breakdown Musculoskeletal: No Tenderness to Palpation of Joints or Extremities Neurological: No focal neurological deficits, Motor Exam 5/5 strength throughout, Sensory exam intact to light touch and pain Psych/Mental Status: Normal Affect, Appropriate Weight / BMI Weight Weight: 158 lb 15.253 oz Body Mass Index (BMI) 23.4 ABG / Lab / Microbiology Data 06/28/24 05:37 06/30/24 08:18 Laboratory: Laboratory Results - last 24 hr 06/30/24 08:18: Sodium 141, Potassium 4.8, Chloride 111 H, Carbon Dioxide 16.6 L , Anion Gap 14, BUN 56 H, Creatinine 1.28 H, Estim Creat Clear Calc 46.80 L, Est GFR (MDRD) Non-Af 57 L, BUN/Creatinine Ratio 43.8 H, Glucose 190 H, Calcium 9.2 Microbiology: Microbiology 06/28/24 04:14 Urine, Clean Catch Legionella Antigen - Final 06/28/24 04:14 Urine, Clean Catch Streptococcus pneumoniae Antigen (M - Final 06/27/24 21:10 Mucosa - Nose SARS-CoV-2, Influenza & RSV (PCR) - Final Radiography Diagnostic Testing: Radiology Impression Echocardiogram 06/27/24 22:17 Interpretation Summary Normal LV size. The left ventricular ejection fraction is 60 %. Moderate focal aortic valve calcification. Mild aortic stenosis. Moderately dilated aortic root. Ordering Physician: Tony Benoit Referring Physician: Lucia Trimble Performed By: Emery Liriano RCS Chest X-Ray 06/30/24 05:30 IMPRESSION: Dual lead pacemaker now seen. No pneumothorax. Possible very small left pleural effusion. Platelike area of atelectasis right lower lung. Patchy ill-defined perihilar lower zone predominant airspace opacities may represent pulmonary edema, clinically correlate. Reading Location: [id number] D/C Instructions Discharge Diet: No restrictions (as you feel able. No excessive stretching. No lifting your arm over your head (keep elbow below shoulder level) until seen for your pacemaker check. Do not lift your elbow away from your side until you are seen for your first visit. Keep the arm sling on if it helps remind you not to lift your arm.) May shower in (days): 2 Additional Activity Instructions: May shower or bathe on [day 3]. Do not scrub the incision or soak in the tub. Just wash with soap and let the water run over the incision. Gently pat dry with towel. Medications: Take your pain medication as directed. Refer to your discharge instruction sheet for a list of medications you are to take. Call your doctor if your incision/area has: Continuous Slow Oozing, Sudden Increased Bleeding, Increased Pain/ Swelling, Increased Redness, Foul Smelling Discharge and Swelling at the incision site Call your doctor if you observe: Fever of 101 or Higher, Shortness of breath, Dizziness, Fainting spells, Swelling in the ankles, Chest pain, Prolonged hiccupping and Increased palpitations (irregular heartbeat) Suture Line Care: Avoid Pulling/Pushing and Avoid Pinching/Bending Cleanse incision/area with: Do not get Incision Wet and Keep Dressing Clean & Dry Additional Dressing/Incision Instructions: When dressing is removed, wash and dry incision. Keep covered with a light bandage if it is rubbing against your clothing. Do not cover the incision with an airtight bandage. Change the bandage daily. Do not remove steri strips. The strips will fall off on their own. DC O2, CPAP, BIPAP Needs Home O2 Discharge instructions: No Please Follow Up With: Fazal Pal MD When: Pacemaker follow-up on July 07 at 10 AM. Meaningful Use Info Meaningful Use Meaningful Use Diagnoses (Choose all that apply): None applicable Ischemic Stroke Statin Dosing Therapy Reference: STATIN DOSE THERAPY REFERENCE: * Patients > 75 years receive moderate or high dose statin therapy. * Patients 75 years or YOUNGER should receive HIGH intensity statin dose unless contraindicated. You will be required to document reason for non-treatment if statin daily dose does not meet guidelines. HIGH DOSE STATIN THERAPY DAILY Atorvastatin > than or = to 40 mg Rosuvastatin > than or = to 20 mg Amlodipine + Atorvastatin > than or = to 2.5/40 mg Ezetimibe + Simvastatin 10/80 mg Simvastatin 80mg Discharge Plan Admission Admit Date/Time: 06/27/24 22:02 Attending Provider: Alberto Gupta Primary Care Provider: Lucia Trimble Consulting Providers: Tony Benoit; Andriy Macdonald; April Napoles Discharge Orders/Prescriptions Prescriptions: New prednisone 20 mg tablet 40 mg PO DAILY Qty: 10 0RF Continued PreserVision AREDS-2 [id number] wc-dvvc-uf-mg capsule 1 tablet PO DAILY Rx Instructions: administer with meals Dupixent Pen 300 mg/2 mL pen injector 300 mg subcut Q2W cholecalciferol (vitamin D3) 125 mcg (5,000 unit) capsule 125 mcg PO DAILY Trelegy Ellipta 100-62.5-25 mcg blister with device 1 inh inhalation DAILY Qty: 3 3RF losartan 50 mg tablet 50 mg PO DAILY Qty: 90 1RF simvastatin 40 mg tablet 40 mg PO DAILY Qty: 90 1RF Referrals / Follow Up: Lucia Trimble MD [Primary Care Provider] - Within 1 Week Fazal Pal MD [Med Staff - Active Staff] - Within 2 Weeks Disposition Disposition (needs filled in before D/C Order can be placed): Home, Self Care Charges/Coding Visit Charges Inpatient E&M: 26432 Disch Hosp >30min
== END 2024-06-30 14:52 | disposition home or self-care (01) | DRG 242 ==
LOC: ED 21:34 → PCU 22:10
PROVIDERS: Internal Medicine; Admitting Provider Internal Medicine; Emergency Provider Emergency Medicine; PCP Internal Medicine; Visit Provider Family Medicine
DX: I44.2 Atrioventricular block, complete (principal); J18.9 Pneumonia, unspecified organism; J44.1 Chronic obstructive pulmonary disease with (acute) exacerbation; I24.89 Other forms of acute ischemic heart disease; E86.0 Dehydration; M45.9 Ankylosing spondylitis of unspecified sites in spine; I10 Essential (primary) hypertension; I71.21 Aneurysm of the ascending aorta, without rupture; I35.0 Nonrheumatic aortic (valve) stenosis; J43.9 Emphysema, unspecified; I45.10 Unspecified right bundle-branch block; G47.33 Obstructive sleep apnea (adult) (pediatric); F17.210 Nicotine dependence, cigarettes, uncomplicated; E78.5 Hyperlipidemia, unspecified; M19.90 Unspecified osteoarthritis, unspecified site; H35.30 Unspecified macular degeneration; I48.91 Unspecified atrial fibrillation; E78.2 Mixed hyperlipidemia; Z79.01 Long term (current) use of anticoagulants; Z79.2 Long term (current) use of antibiotics; Z79.02 Long term (current) use of antithrombotics/antiplatelets; Z79.899 Other long term (current) drug therapy; Z79.52 Long term (current) use of systemic steroids; Z91.041 Radiographic dye allergy status
CPT/HCPCS: 33208; 36415; 71046; 71250; 80048; 80053; 81001; 82803; 84484; 85025; 87449; 93005; 93306; 94640; 94668; 97161; 97166; 99152; 99153; 99252; 99285; Q9957; A4216; C1894; G0463; J1940

== ENCOUNTER 2024-07-04 20:21 | Inpatient (IN) | payer MEDICARE, OTHER, SELFPAY ==
[2024-07-04 20:23] VITALS: BP 133/38; BP 155/47; PULSE 31; PULSE 53; RESP 20; RESP 22; TEMP 36.8; O2SAT 92; O2SAT 97
--- NOTE | 2024-07-04 20:28 | EKG12_ITS ---
Test Reason : Blood Pressure : */* mmHG Vent. Rate : 43 BPM Atrial Rate : 43 BPM P-R Int : * ms QRS Dur : 172 ms QT Int : 462 ms P-R-T Axes : 74 -87 57 degrees QTcB Int : 390 ms venricular non captive Abnormal ECG Confirmed by ELIA CARLOS, LONG ([id number]), technical editor TOY LAYNE ([id number]) on 07/06/2024 8:37:53 AM Referred By: Marcial Camacho Confirmed By: LONG RODRIGEZ MD
--- NOTE | 2024-07-04 20:35 | EX.ED.DYSGE1 ---
HPI History of Present Illness Chief Complaint: Palpitations Informant: patient and family Narrative Narrative: Brought in by daughter after speaking with on-call cardiology for lightheaded symptoms and low heart rate. He status post a pacemaker this past Saturday for complete heart block. He was hospitalized over the weekend. He went home on Saturday 4 days ago was doing well for 2 days. Following day started having lightheaded symptoms similar to what led to his pacemaker. He denied any strenuous activities any reaching or carrying any thing heavy. Today daughter checked heart rate 30s to 50s. He called the chip loft worker was sent here for evaluation. Denied any syncopal episodes denies chest pains. COPD sleep apnea with CPAP at night. He is not on any blood thinners. Patient has a [employer] pacemaker. Note there was call him from cardiology, Dr. Velarde with concerns for failed pacemaker. Prior similar symptoms: Yes PFSH FOR[facility]LY [facility], 1928–1983 Medical History Pacemaker Presence of permanent cardiac pacemaker Esophageal diverticulum Ankylosing spondylitis Vision problems High blood pressure Back pain Arthritis Alcohol abuse Right bundle branch block (RBBB) Obstructive sleep apnea Hyperlipidemia Essential hypertension Ascending aortic aneurysm Tobacco use disorder, continuous Pneumonia Spondylitis Ankylosis Dermal hypersensitivity reaction Macular degeneration COPD (chronic obstructive pulmonary disease) Home Medications ?Medication ?Instructions ?Recorded ?Last Taken ?Type vit C 250 mg-vit E 90 mg-zinc 40 1 tablet PO DAILY eye health 06/21/20 Unknown History mg-copper 1 ot-kumlov-bqcggd capsule (PreserVision AREDS-2) dupilumab 300 mg/2 mL subcutaneous 300 mg subcut Q2W eczema 07/11/21 Unknown History pen injector (Dupixent) cholecalciferol (vitamin D3) 125 125 mcg PO DAILY supplement 01/14/23 Unknown History mcg (5,000 unit) capsule fluticasone fur. 100 mcg-umeclid 1 inh inhalation DAILY breathing 05/08/24 Unknown Rx 62.5 mcg-vilant 25 mcg #3 ea inhalat.powder (Trelegy Ellipta) simvastatin 40 mg tablet 40 mg PO DAILY cholesterol #90 tabs 05/19/24 Unknown Rx losartan 50 mg tablet 50 mg PO DAILY blood pressure #90 05/27/24 Unknown Rx tabs prednisone 20 mg tablet 40 mg (2 x 20 mg) PO DAILY #10 tabs 06/30/24 Unknown Rx fluoride (sodium) 1.1 % dental applic PO DAILY 07/04/24 Unknown History cream (SF 5000 Plus) Allergy/AdvReac Type Severity Reaction Status Date / Time Iodinated Contrast Media AdvReac Mild Nausea Verified 07/04/24 20:25 Family History Father Psoriasis Thoracic aortic aneurysm (TAA) Mother Skin cancer Sister Lupus Thoracic aortic aneurysm (TAA) Breast cancer Brother Crohn's disease Ulcerative colitis Thoracic aortic aneurysm (TAA) Sister Psoriatic arthritis Breast cancer Other Uterine cancer Surgical History H/O chest tube placement History of tonsillectomy H/O colonoscopy Social History household members: none current occupational status: retired 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 [employer] Smoking Status: Current every day smoker tobacco type: cigarettes Tobacco: How many years used: 57 Electronic Cigarette Use: not used how long ago did patient quit smoking: patient cut down to about 0.5ppd second hand exposure: Yes (father smoked for a few years) quit status: has quit before alcohol intake: never substance use type: does not use what type of physical activity do you participate in: none seatbelt use: always do you feel safe at home: Yes ROS ROS ED Constitutional Constitutional ED: Denies chills, fever(s) or sweats ENT ENT ED: Denies sore throat Cardiovascular Cardiovascular: Reports other Details: Lightheaded symptoms. ; Denies chest pain, leg edema, palpitations or racing heartbeat Respiratory/Chest Respiratory/Chest: Denies cough, dyspnea or dyspnea on exertion Gastrointestinal Gastrointestinal: Denies abdominal pain, diarrhea, nausea or vomiting Genitourinary Genitourinary ED: Denies dysuria, hematuria or urinary frequency Musculoskeletal Musculoskeletal: Denies back pain, extremity pain or neck pain Integumentary Denies rash or wounds Neurologic Neurologic: Denies headache(s), paresthesias or weakness EXAM Physical Exam Const Vital Signs: 07/04/24 20:23 07/04/24 20:23 07/04/24 20:37 Temperature 98.3 F Temperature Source Temporal Pulse Rate 31 L 53 L Respiratory Rate 20 H 22 H Respiratory Effort Short of Breath Blood Pressure 133/38 H 155/47 H Blood Pressure Mean 69 83 Pulse Ox 92 97 Oxygen Delivery Method Room Air Room Air 07/04/24 21:00 07/04/24 22:00 Temperature Temperature Source Pulse Rate 36 L 47 L Respiratory Rate 21 H 22 H Respiratory Effort Blood Pressure 129/48 H 127/40 H Blood Pressure Mean 71 69 Pulse Ox 98 96 Oxygen Delivery Method Positive well nourished and well developed General Appearance ED: well developed and NAD HEENT Reports moist mucous membranes normocephalic and atraumatic Eyes General Eye ED: Yes normal appearance of both eyes Neck full ROM Chest Wall Chest: other Left upper chest wall: Pacemaker device, Steri-Strips of the wound, no drainage no erythema no fluctuance. ; Negative for tenderness Resp normal respiratory effort and normal air movement Effort and Inspection: symmetric chest movement; Negative for respiratory distress Cardio regular rhythm and no murmurs Rate: bradycardia Peripheral Pulses: pulses 2+ throughout GI normal to inspection, nondistended, normoactive bowel sounds and non-tender Palpation: Negative for guarding or rebound tenderness present Extremity normal to inspection General Extremety ED: Negative for edema or tenderness General Extremity: Negative for edema Neuro oriented x3 and no sensory deficits noted Neuro Narrative: No focal deficits Sensorium / Orientation: awake and alert Skin no rashes or lesions noted and no wounds MDM MDM MDM Narrative Medical decision making narrative: Interventions / MDM: Differential diagnosis: Pacemaker malfunction, symptomatic bradycardia, leukocytosis Diagnosis considered but do not suspect: N/A My EKG interpretation: Heart rate 43, pacemaker spikes however no following of beats from this. Concerns for failure to capture further. Imaging independently reviewed and interpreted by myself: 1 view chest x-ray: Initial read noted the atrial wires in place, could not appreciate the ventricular wire as it runs below the film. Modified KUB 1 view: Pacemaker lead in the ventricle. External documents reviewed: N/A Test considered but not ordered:N/A ED course: Patient bradycardic stable blood pressure systolic 133. EKG concerns for failure to capture with bradycardia. Labs will check chest x-ray, will interrogate his pacemaker. 2119: Chest x-ray had the atrial wire in place could not appreciate the ventricular wire discussed with radiology department modified KUB obtained and reviewed and is noted in the ventricle. No floating wires. Results white count returned at 23.4 up from 4 recently. He is on steroids with his last dose taken today. Cough is improving no urinary symptoms. Respiratory rate 22, 2 out of 4 SIRS criteria. No signs infection of his pacemaker pocket. Added lactic acid and blood cultures. 2144: I spoke with chip loft worker Dr. Velarde, sent images through backline. He agrees that there is failure to capture on EKG. Also agrees leads appear in appropriate places on x-ray. Sent some information from the interrogation, he states possibility voltage just needs to be turned up. We will try to get a hold of the rep to get them to see the patient tomorrow in the hospital. I discussed the leukocytosis, agrees with the infectious workup while in the hospital. 2149: I will speak with hospitalist for admission. I did speak with the rep for [employer], discussed the findings and discussion with chip loft worker, he did feel that turning of the voltage may work for this patient. This will need in person evaluation. He recommended calling back to get the local rep to come evaluate the patient. 2207: I spoke with Dr. Camacho, will admit to the PCU for further management. 0: I spoke with local [employer] rep, Anne, she states she will be able to come tomorrow morning to the hospital to evaluate. Lactate has returned to 0.7. No infectious findings at this point. This was likely secondary to his bradycardia. Re-evaluation: stable Disposition discussed with patient/family/significant other: Patient and daughter Case discussed with consulting clinician: Cardiology, hospitalist This note was generated with [employer] dictation software. It may contain incorrect words, spelling, and punctuation that were not noted in checking the note before signing. Lab Data Attestation: I reviewed the patient's lab results. Labs: Laboratory Results - last 24 hr 07/04/24 07/04/24 20:35 21:32 WBC 23.4 H RBC 4.97 Hgb 15.0 Hct 43.9 MCV 88.3 MCH 30.2 MCHC 34.2 RDW Std Deviation 44.0 H RDW Coeff of Benny 13.6 Plt Count 238 MPV 10.7 Immature Gran % (Auto) 0.800 Neut % (Auto) 91.7 H Lymph % (Auto) 2.9 L [place] % (Auto) 4.5 Eos % (Auto) 0.0 Baso % (Auto) 0.1 Absolute Neuts (auto) 21.5 H Absolute Lymphs (auto) 0.69 L Nucleated RBC % 0 Differential Comment SCANNED PT 13.4 INR 1.0 APTT 24.2 Sodium 141 Potassium 4.5 Chloride 107 Carbon Dioxide 21.6 Anion Gap 12 BUN 32 H Creatinine 1.18 Estim Creat Clear Calc 50.76 Est GFR (MDRD) Non-Af 63 BUN/Creatinine Ratio 27.3 H Glucose 285 H Lactic Acid 2.7 H* Calcium 8.7 Total Bilirubin 1.18 Direct Bilirubin 0.54 H AST 20 ALT 69 H Alkaline Phosphatase 76 Total Protein 5.4 L Albumin 3.7 Globulin 1.8 L Radiography Diagnostic Testing: Clinical Impression(s) from Imaging Studies Chest X-Ray 07/04/24 20:46 IMPRESSION: Hazy bibasilar airspace opacities, may represent congestion/edema. Stable left-sided dual lead cardiac pacemaker. Reading Location: [facility] KUB X-Ray 07/04/24 21:07 IMPRESSION: Stable appearing left-sided dual lead cardiac pacemaker. Bibasilar hazy opacity may represent congestion/edema. Small left pleural effusion. Reading Location: [facility] Critical Care Time Critical care time (excluding procedures): Discussing w/Patient &/or Family/Assistant Program Director, Discussing w/Consultants, Arranging Admission or Transfer, Performing Direct Patient Care at Bedside and - (35 minutes) Discharge Plan Dx/Rx/DC Orders Clinical Impression: Pacemaker failure, Bradycardia, Leukocytosis Disposition Disposition: Acute Care Hospital [facility] Discharge Date/Time: 07/04/24 22:45
[2024-07-04 20:39] VITALS: BMI 23.3
[2024-07-04 20:43] LABS: Absolute Lymphocyte Count 0.69 X10^3/uL (0.83-4.51); Absolute Neutrophil Count 21.5 X10^3/uL (2.0-7.7); Basophil# 0.03 X10^3/uL; Basophil% 0.1 % (0-1); Hematocrit 43.9 % (40-54); Lymphocyte # 0.69 X10^3/ul (0.83-4.51); Lymphocyte % 2.9 % (19-41); Mean Corp Hgb Conc 34.2 g/dL (32-36); Mean Corpuscular Hgb 30.2 pg (27.0-32.0); Mean Corpuscular Volume 88.3 fL (80-94); Mean Platelet Vol. 10.7 fl (6.2-12.0); Monocyte# 1.05 X10^3/uL; Monocyte% 4.5 % (0-10); NRBC Flagged by Analyzer 0 % (0-5); Neutrophil # 21.46 X10^3/uL (2.7-7.7); Neutrophil % 91.7 % (47-70); POSITIVE DIFFERENTIAL YES; Platelet Count 238 K/mm3 (150-450); RBC Distribution Width CV 13.6 % (11.6-14.6); Red Blood Count 4.97 M/mm3 (4.6-6.2); White Blood Count 23.4 K/mm3 (4.4-11.0)
--- NOTE | 2024-07-04 20:46 | RAD_ITS ---
PROCEDURE: CHEST 1 VIEW (PORTABLE) 07/04/2024 REASON FOR EXAM: PACEMAKER LEAD EVALUATION TECHNIQUE: Frontal view of the chest. COMPARISON: Chest radiograph dated 06/30/2024 FINDINGS: Hardware: Left-sided dual lead cardiac pacemaker. 1 of the leads project over the right heart border. The 2nd lead is beyond the field of view. Heart: Stable in size. Lungs: Hazy bibasilar airspace opacities. No pneumothorax. Bones: Degenerative changes of the thoracic spine. Other: RAD/Chest 1 View (Portable) IMPRESSION: Hazy bibasilar airspace opacities, may represent congestion/edema. Stable left-sided dual lead cardiac pacemaker. Reading Location: [facility]
[2024-07-04 20:50] LABS: Prothrombin Time (Protime)PT. 13.4 SECONDS (11.7-14.9)
[2024-07-04 20:51] LABS: Partial Thromboplast Time 24.2 Seconds (24.1-36.2)
[2024-07-04 20:57] LABS: Anion Gap 12 (5-15); BUN 32 mg/dL (4-19); BUN/Creat Ratio 27.3 RATIO (10-20); Calcium,Total 8.7 mg/dL (7.6-11.0); Carbon Dioxide 21.6 mmol/L (21.0-32.0); Chloride 107 mmol/L (98-108); Creatinine, Serum 1.18 mg/dL (0.70-1.20); EST Glomerular Filtration Rate 63 (>60); Estimated Creatinine Clearance 50.76 ml/min (50-250); Glucose 285 mg/dL (70-99); Potassium 4.5 mmol/L (3.3-5.1); Sodium Level 141 mmol/L (133-145)
[2024-07-04 21:00] VITALS: BP 129/48; PULSE 36; RESP 21; O2SAT 98
[2024-07-04 21:05] LABS: Differential Indicated SCAN CRITERIA MET
--- NOTE | 2024-07-04 21:07 | RAD_ITS ---
PROCEDURE: ABDOMEN SINGLE VIEW (PORTABLE) 07/04/2024 REASON FOR EXAM: LEAD EVALUATION TECHNIQUE: Single view abdomen. COMPARISON: None FINDINGS: Bowel gas: Nonobstructive bowel gas pattern. Calcifications: None Bones: Degenerative changes. Other: Patchy hazy bibasilar airspace opacities with left basilar effusion/atelectasis. No pneumothorax. Left-sided dual lead cardiac pacemaker. The leads project over the right heart border and left heart border.. RAD/Abdomen Single View (Portable) IMPRESSION: Stable appearing left-sided dual lead cardiac pacemaker. Bibasilar hazy opacity may represent congestion/edema. Small left pleural effu ab. Reading Location: [facility]
[2024-07-04 21:53] LABS: Differential Comment SCANNED
[2024-07-04 22:00] VITALS: BP 127/40; PULSE 47; RESP 22; O2SAT 96
--- NOTE | 2024-07-04 22:05 | HP.PCM.HOS_ITS ---
HPI - General General Date of Admission: 07/04/24 Date of Service: 07/04/24 Chief Complaint: Lightheadedness HPI Narrative WILIAN CAMPBELL, is a 79 M who presented to [facility] ED on 07/04/2024 with lightheadedness. Patient was recently hospitalized 06/27-06/30 for complete heart block. Had pacemaker placement done on 06/[address] Pal. Tolerated procedure without issue and had good pacemaker capture on discharge, was discharged home in stable condition. However, he began to have lightheadedness especially with exertion beginning on and it has worsened over the past few days. Today his daughter checked his heart rate and found it was in the 30s to 50s so they called the chefs who recommended he come to the ED for further evaluation. In the ED he was found to have a heart rate in the 30s to 40s. EKG showed pacemaker spikes but no beats following from this. Case was discussed with Dr. Velarde given concern for pacemaker failure. Chest x-ray and KUB were obtained and showed that the atrial and ventricular wires were in good position. Pacemaker pocket looked good, no concern for movement of pacemaker there. Patient was treated for COPD exacerbation as well during recent admission and completed steroids a few days ago. WBC count was 23,000 but patient was afebrile and labs otherwise normal, and chest imaging appeared similar to previous. Patient noted that cough and shortness of breath was improving. Cardiology noted that he may just need the voltage increased to have pacemaker capture, but pacemaker rep will come into the hospital tomorrow to evaluate. Hospitalist was then contacted for admission. I saw the patient at bedside in the ED, daughter was present. Patient was sitting back comfortably in bed, conversing normally, in no acute distress. Heart rate was consistently in the 30s to 40s during my encounter with him. Blood pressure was stable in the 110s to 120 systolic. He denied any lightheadedness or dizziness at rest. Noted again to me that his cough and shortness of breath were much improved from previous. He denied any other acute concerns at this time. [facility] Medical History Pacemaker Presence of permanent cardiac pacemaker Esophageal diverticulum Ankylosing spondylitis Vision problems High blood pressure Back pain Arthritis Alcohol abuse Right bundle branch block (RBBB) Obstructive sleep apnea Hyperlipidemia Essential hypertension Ascending aortic aneurysm Tobacco use disorder, continuous Pneumonia Spondylitis Ankylosis Dermal hypersensitivity reaction Macular degeneration COPD (chronic obstructive pulmonary disease) Home Medications ?Medication ?Instructions ?Recorded ?Last Taken ?Type vit C 250 mg-vit E 90 mg-zinc 40 1 tablet PO DAILY eye health 06/21/20 Unknown History mg-copper 1 [id number] capsule (PreserVision AREDS-2) dupilumab 300 mg/2 mL subcutaneous 300 mg subcut Q2W e czema 07/11/21 Unknown History pen injector (Dupixent) cholecalciferol (vitamin D3) 125 125 mcg PO DAILY supp lement 01/14/23 Unknown History mcg (5,000 unit) capsule fluticasone fur. 100 mcg-umeclid 1 inh inhalation PRICILLA Y breathing 05/08/24 Unknown Rx 62.5 mcg-vilant 25 mcg #3 ea inhalat.powder (Trelegy Ellipta) simvastatin 40 mg tablet 40 mg PO DAILY cholesterol # 90 tabs 05/19/24 Unknown Rx losartan 50 mg tablet 50 mg PO DAILY blood pressur e #90 05/27/24 Unknown Rx tabs prednisone 20 mg tablet 40 mg (2 x 20 mg) PO DAILY # 10 tabs 06/30/24 Unknown Rx fluoride (sodium) 1.1 % dental applic PO DAILY 5 Unknown History cream (SF 5000 Plus) Allergy/AdvReac Type Severity Reaction Status Date / Time Iodinated Contrast Media AdvReac Mild Nausea Verified 07/04/24 20:25 Family History Father Psoriasis Thoracic aortic aneurysm (TAA) Mother Skin cancer Sister Lupus Thoracic aortic aneurysm (TAA) Breast cancer Brother Crohn's disease Ulcerative colitis Thoracic aortic aneurysm (TAA) Sister Psoriatic arthritis Breast cancer Other Uterine cancer Surgical History H/O chest tube placement History of tonsillectomy H/O colonoscopy Social History household members: none current occupational status: retired 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 Smoking Status: Current some day smoker tobacco type: cigarettes Tobacco: How many years used: 57 Electronic Cigarette Use: not used how long ago did patient quit smoking: patient cut down to about 0.5ppd second hand exposure: Yes (father smoked for a few years) quit status: has quit before alcohol intake: never substance use type: does not use what type of physical activity do you participate in: none seatbelt use: always do you feel safe at home: Yes ROS Constitutional Constitutional: Denies chills, fatigue, fever(s) or weakness Eyes Eyes: Denies change in vision Cardiovascular Cardiovascular: Reports lightheadedness; Denies chest pain, dyspnea on exertion, edema, palpitations or syncope Respiratory/Chest Respiratory/Chest: Reports cough; Denies productive cough, shortness of breath at rest, shortness of breath with exertion or wheezing Gastrointestinal Gastrointestinal: Denies abdominal pain Musculoskeletal Musculoskeletal: Denies arthralgias or myalgias Neurologic Neurologic: Reports dizziness; Denies headache(s) Vital Signs Vital Signs Vital Signs: 07/04/24 20:23 07/04/24 20:23 07/04/24 20:37 Temperature 98.3 F Temperature Source Temporal Pulse Rate 31 L 53 L Respiratory Rate 20 H 22 H Respiratory Effort Short of Breath Blood Pressure 133/38 H 155/47 H Blood Pressure Mean 69 83 Pulse Ox 92 97 Oxygen Delivery Method Room Air Room Air 07/04/24 21:00 Temperature Temperature Source Pulse Rate 36 L Respiratory Rate 21 H Respiratory Effort Blood Pressure 129/48 H Blood Pressure Mean 71 Pulse Ox 98 Oxygen Delivery Method Weight Weight: 71.6 kg Body Mass Index (BMI) 23.3 Physical Exam Const alert, oriented x3, no apparent distress and average body habitus Constitutional Narrative: Pleasant elderly male, sitting back comfortably in bed, conversing normally, in no acute distress. General Appearance: cooperative and comfortable HEENT normocephalic, head/scalp atraumatic, hearing grossly normal bilaterally, nasal mucous membranes and turbinates normal and moist oral mucous membranes Eyes PERRL, EOMs intact bilaterally and conjunctivae normal Neck full ROM Chest inspection of chest normal Chest Narrative: Pacemaker site appears well-healed with no infectious findings noted. Resp normal respiratory effort, normal air movement, no use of accessory muscles and clear to auscultation bilaterally Cardio no murmurs and peripheral pulses 2+ throughout Cardio Narrative: Bradycardic, irregular rhythm. GI normal to inspection, nondistended, normoactive bowel sounds, soft to palpation, non-tender and non-distended Back/Spine normal ROM Extremity normal to inspection, full ROM and no pedal edema Skin no rashes or lesions noted Psych mental status grossly normal Results Lab / Micro Data 07/04/24 20:35 07/04/24 20:35 Labs: Laboratory Results - last 24 hr 07/04/24 20:35: WBC 23.4 H, RBC 4.97, Hgb 15.0, Hct 43.9, MCV 88.3, MCH 30.2, MCHC 34.2, RDW Std Deviation 44.0 H, RDW Coeff of Benny 13.6, Plt Count 238, MPV 10.7, Immature Gran % (Auto) 0.800, Neut % (Auto) 91.7 H, Lymph % (Auto) 2.9 L, Parke % (Auto) 4.5, Eos % (Auto) 0.0, Baso % (Auto) 0.1, Absolute Neuts (auto) 21.5 H, Absolute Lymphs (auto) 0.69 L, Nucleated RBC % 0, Differential Comment SCANNED, PT 13.4, INR 1.0, APTT 24.2, Sodium 141, Potassium 4.5, Chloride 107, Carbon Dioxide 21.6, Anion Gap 12, BUN 32 H, Creatinine 1.18, Estim Creat Clear Calc 50.76, Est GFR (MDRD) Non-Af 63, BUN/Creatinine Ratio 27.3 H, Glucose 285 H , Calcium 8.7 Imaging Radiology Impression Chest X-Ray 07/04/24 20:46 IMPRESSION: Hazy bibasilar airspace opacities, may represent congestion/edema. Stable left-sided dual lead cardiac pacemaker. [facility] 07/04/24 21:07 IMPRESSION: Stable appearing left-sided dual lead cardiac pacemaker. Bibasilar hazy opacity may represent congestion/edema. Small left pleural effusion. Reading Location: [facility] Assessment & Plan Assessment/Plan (1) Pacemaker failure: (2) Leukocytosis: PLAN: Plan Patient is a 79-year-old male who presented to [facility] ED on 07/04/2024 with lightheadedness. 1. 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 Admit under observation status to PCU. Cardiology consulted. S/p pacemaker placement on 06/29 for complete heart block. Heart rate 30s to 40s in ED and EKG showed pacemaker spikes but no capture. Per cardiology, may just need voltage increased but pacemaker rep will come into hospital tomorrow to evaluate. Blood pressure stable at rest but given presyncopal symptoms with standing and exertion, will have patient only ambulate with assistance. 2. Leukocytosis ? WBC count 23 on admit. Afebrile and noninfectious appearing. Very likely due to recent steroid course for COPD exacerbation, low concern for active infection. Follow-up a.m. CBC. 3. COPD ? Stable on room air at rest, not in acute exacerbation. Recently treated for COPD exacerbation on admission last week with good improvement in symptoms. Chest x-ray on admit showed hazy bibasilar airspace opacities but these appear similar to previous. Continue home long-acting inhaler and albuterol as needed. Chronic medical conditions: ? Hypertension: Will hold losartan for now. ? Hyperlipidemia: Continue home statin. ? Tobacco abuse: NRT available while inpatient as needed. Discussed cessation. ? History of ankylosing spondylitis: Continue Dupixent in outpatient setting. ? Ascending aortic aneurysm: 4.[address] from 2021. Being followed as outpatient with most recent measurement of 4.1 cm. Has repeat scan planned in September/October 2024. No inpatient needs. ? 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 ? HARDEEP: Continue CPAP. DVT prophylaxis: Lovenox CODE STATUS: Full code, verified Expected disposition: Home, 1 to 2 days Total clinical time spent by myself addressing the patient's medical issues, reviewing all the data, and collaborating with patient's care team: 75 minutes. Charges/Coding Visit Charges Inpatient E&M: 71208 Init Hosp L3
[2024-07-04 22:09] LABS: AST(SGOT) 20 U/L (<=37); Alanine Aminotransfer ALT/SGPT 69 U/L (<=46); Albumin, Serum 3.7 g/dL (3.4-4.8); Alkaline Phosphatase 76 U/L (40-129); Bilirubin, Direct 0.54 mg/dL (0.00-0.30); Globulin 1.8 g/dL (2.2-4.2); Protein, Total 5.4 g/dL (5.9-8.4); Total Bilirubin 1.18 mg/dL (0.00-1.30)
[2024-07-04 22:30] LABS: Lactic Acid 2.7 mmol/L (0.0-2.0)
[2024-07-04 22:34] VITALS: BP 141/48; PULSE 58; RESP 20; TEMP 36.7; O2SAT 96
[2024-07-04 22:46] LABS: Bacteria 0 SEEN /hpf (None Seen); Mucous, Urine 0 SEEN /hpf (<or=2+); Red Blood Cells-Urine 0 SEEN /hpf (0-5)
[2024-07-04 22:55] VITALS: BMI 22.6
[2024-07-04 22:55] LABS: Color, Urine Yellow (Yellow); Glucose, Dipstick Normal (Normal); Ketone-Dipstick Negative (Negative); Leukocyte Esterase-Dipstick 25 /ul (Negative); Nitrite-Dipstick Negative (Negative); Occult Blood-Urine 10 /ul (Negative); Protein-Dipstick 100 mg/dl (Negative); Urine Bilirubin Dipstick Negative (Negative); Urine Clarity Clear (Clear); Urine Urobilinogen Normal (Normal)
[2024-07-04 23:01] LABS: Squamous Epithelial Cells - UA 0-5 SEEN /hpf (0-5); White Blood Cells 0-5 SEEN /hpf (0-5)
[2024-07-04 23:05] VITALS: BP 131/70; PULSE 38; RESP 18; TEMP 36.6; O2SAT 94
[2024-07-04 23:18] VITALS: BP 131/70; PULSE 38; RESP 18; TEMP 36.6; O2SAT 94
[2024-07-05] VITALS (7 sets, daily range): BP systolic 115–126; BP diastolic 44–57; PULSE 33–81; RESP 18–20; TEMP 36.6–37.6; O2SAT 90–95
[2024-07-05 01:37] LABS: Reflex Lactate? Y
[2024-07-05 02:22] LABS: Hemoglobin 13.2 g/dL (13.0-16.5); Mean Corp Hgb Conc 34.7 g/dL (32-36); Mean Corpuscular Hgb 30.4 pg (27.0-32.0); Mean Corpuscular Volume 87.6 fL (80-94); Mean Platelet Vol. 10.9 fl (6.2-12.0); Platelet Count 194 K/mm3 (150-450); RBC Distribution Width CV 13.7 % (11.6-14.6); RBC Distribution Width SD 44.3 fl (35.1-43.9); Red Blood Count 4.34 M/mm3 (4.6-6.2); White Blood Count 18.8 K/mm3 (4.4-11.0)
[2024-07-05 02:54] LABS: Lactic Acid 1.8 mmol/L (0.0-2.0)
[2024-07-05 03:08] LABS: Anion Gap 11 (5-15); BUN 37 mg/dL (4-19); BUN/Creat Ratio 35.6 RATIO (10-20); Calcium,Total 8.3 mg/dL (7.6-11.0); Carbon Dioxide 18.6 mmol/L (21.0-32.0); Chloride 110 mmol/L (98-108); Creatinine, Serum 1.05 mg/dL (0.70-1.20); EST Glomerular Filtration Rate 72 (>60); Glucose 209 mg/dL (70-99); Potassium 4.2 mmol/L (3.3-5.1); Sodium Level 140 mmol/L (133-145)
[2024-07-05] MEDS: Ipratropium/Albuterol Sulfate 3 ML AMPUL.NEB INHALATION ×3 (06:38→20:16)
[2024-07-05] MEDS: Budesonide Respules 0.5 MG/2 ML AMPUL.NEB. INHALATION ×2 (06:38→20:16)
--- NOTE | 2024-07-05 09:19 | CON.PCM.CA_ITS ---
Assessment & Plan Assessment/Plan (1) Bradycardia: PLAN: Patient presented with bradycardia in the 35-40 bpm range documented by his sister who is power of corporate attorney in the home environment. His blood pressure was stable in the home environment and he was transported by car to the emergency department. The patient's EKG in the ER revealed complete heart block with occasional capture of the paced beats but multiple noncapture beats documented. Patient's blood pressure remains adequate. Formal pacemaker interrogation will be done this morning and attempt to adjust the output and/or mode to attempt to capture until the pacemaker lead can be repositioned. (2) Pacemaker failure: QUALIFIERS: Encounter type: initial encounter Qualified Code(s): T82.118A - Breakdown (mechanical) of other cardiac electronic device, initial encounter PLAN: Formal pacemaker interrogation will be done this morning and attempt to adjust the output and/or mode to attempt to capture until the pacemaker lead can be repositioned. I discussed this in detail with the [employer] pacemaker insurance healthcare representative who is on her way to the hospital. (3) Leukocytosis: QUALIFIERS: Leukocytosis type: unspecified Qualified Code(s): D 72.829 - Elevated white blood cell count, unspecified PLAN: The patient has just completed an opponent steroid dosing for his COPD exacerbation. There is no fever he is currently off the steroids and he appears nontoxic. Further evaluation be left to the primary service. The patient did have urinalysis that showed slightly elevated nitrates and hemoglobin in the urine. (4) COPD (chronic obstructive pulmonary disease): QUALIFIERS: COPD type: unspecified COPD Qualified Code(s): J44.9 - Chronic obstructive pulmonary disease, unspecified PLAN: Further treatment per the primary service. (5) Ascending aortic aneurysm: QUALIFIERS: Presence of rupture: without rupture Qualified Code(s): I71.21 - Aneurysm of the ascending aorta, without rupture PLAN: Patient is prior evaluation showing a 4.2 cm ascending aortic aneurysm which is being monitored. (6) Essential hypertension: PLAN: Patient's blood pressure will be readdressed once his rhythm is stabilized. PLAN: Plan 1. Will have the pacemaker formally interrogated and reprogrammed to see if we can obtain capture in the ventricle. There is likely the patient will require lead placement adjustment. 2. Patient is to be maintained at bedrest until we can further adjust the pacemaker and obtain capture. 3. Will plan on potential lead repositioning around noon July 06, [address] Pal HPI Consult Data Date of Consult: 07/05/24 HPI Narrative Reason for Consultation: Pacemaker malfunction HPI Narrative: WILIAN CAMPBELL, is a 79 M who presents with a 24 to 48-hour history of profound weakness and near syncope with change of position. This is very similar to the symptoms the patient had last weekend that prompted his original admission. At that time he was found to be in complete heart block. EKG in the emergency department was reviewed by myself showed the patient has an occasional PVC or escape ventricular beat with complete heart block and an occasional ventricular paced captured beat. Heart rate was in the 35-40 bpm range. The patient's blood pressure was stable. Renal function remains stable a bump in his lactic acid of 2.7 that dropped down to 1.8 on recheck. The patient has been afebrile his white count was elevated 23,000 dropped down to 18.8. He had just completed a steroid dose regimen for his COPD exacerbation. Blood pressure was 115?130/57?70. His bicarb was slightly down at 17. Since admission the patient's telemetry has shown sinus rhythm with complete heart block and occasional ventricular capture beats. He has done 3-4 capture beats in a row and then a lack of ventricular capture. The patient does appear to be appropriately sensing the atrium. I did discuss situation with the [employer] pacemaker insurance healthcare representative. She will be coming in to formally interrogate the pacemaker and see if voltage or switching to a unipolar device mechanism would be able to capture the ventricle better. She did tell me that during the procedure with placement of the ventricular lead the patient went asystolic he did have good pacing and sensing thresholds at the time of implant. The patient denies utilizing his left arm over his head and reports he has kept it in the sling ever since he was discharged. The patient is resting comfortably in the seated position in bed eating breakfast. He denies any lightheadedness or significant shortness of breath. He reports that his COPD exacerbation has resolved. The patient had an echocardiogram June 30, 2024. That showed normal ejection fraction of 60% with no regional wall motion abnormality. Both atria are of normal size right ventricle was normal. The patient does have mild aortic stenosis. [facility] Medical History Pacemaker Presence of permanent cardiac pacemaker Esophageal diverticulum Ankylosing spondylitis Vision problems High blood pressure Back pain Arthritis Alcohol abuse Right bundle branch block (RBBB) Obstructive sleep apnea Hyperlipidemia Essential hypertension Ascending aortic aneurysm Tobacco use disorder, continuous Pneumonia Spondylitis Ankylosis Dermal hypersensitivity reaction Macular degeneration COPD (chronic obstructive pulmonary disease) Home Medications ?Medication ?Instructions ?Recorded ?Last Taken ?Type vit C 250 mg-vit E 90 mg-zinc 40 1 tablet PO DAILY eye health 06/21/20 Unknown History mg-copper 1 [id number] capsule (PreserVision AREDS-2) dupilumab 300 mg/2 mL subcutaneous 300 mg subcut Q2W e czema 07/11/21 Unknown History pen injector (Dupixent) cholecalciferol (vitamin D3) 125 125 mcg PO DAILY supp lement 01/14/23 Unknown History mcg (5,000 unit) capsule fluticasone fur. 100 mcg-umeclid 1 inh inhalation PRICILLA Y breathing 05/08/24 Unknown Rx 62.5 mcg-vilant 25 mcg #3 ea inhalat.powder (Trelegy Ellipta) simvastatin 40 mg tablet 40 mg PO DAILY cholesterol # 90 tabs 05/19/24 Unknown Rx losartan 50 mg tablet 50 mg PO DAILY blood pressur e #90 05/27/24 Unknown Rx tabs prednisone 20 mg tablet 40 mg (2 x 20 mg) PO DAILY # 10 tabs 06/30/24 Unknown Rx fluoride (sodium) 1.1 % dental applic PO DAILY 5 Unknown History cream (SF 5000 Plus) Allergy/AdvReac Type Severity Reaction Status Date / Time Iodinated Contrast Media AdvReac Mild Nausea Verified 07/04/24 20:25 Family History Father Psoriasis Thoracic aortic aneurysm (TAA) Mother Skin cancer Sister Lupus Thoracic aortic aneurysm (TAA) Breast cancer Brother Crohn's disease Ulcerative colitis Thoracic aortic aneurysm (TAA) Sister Psoriatic arthritis Breast cancer Other Uterine cancer Surgical History H/O chest tube placement History of tonsillectomy H/O colonoscopy Social History household members: none current occupational status: retired 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 Smoking Status: Current some day smoker tobacco type: cigarettes Tobacco: How many years used: 57 Electronic Cigarette Use: not used how long ago did patient quit smoking: patient cut down to about 0.5ppd second hand exposure: Yes (father smoked for a few years) quit status: has quit before alcohol intake: never substance use type: does not use what type of physical activity do you participate in: none seatbelt use: always do you feel safe at home: Yes ROS Constitutional Constitutional: Reports as per HPI Eyes Eyes: Reports loss of vision ENT HEENT: Reports systems reviewed and no addt'l complaints, except as documented Cardiovascular Cardiovascular: Reports as per HPI Respiratory/Chest Respiratory/Chest: Reports as per HPI Gastrointestinal Gastrointestinal: Reports systems reviewed and no addt'l complaints, except as documented Genitourinary Genitourinary: Reports as per HPI Musculoskeletal Musculoskeletal: Reports as per HPI Integumentary Integumentary: Reports systems reviewed and no addt'l complaints, except as documented Neurologic Neurologic: Reports systems reviewed and no addt'l complaints, except as documented Psychiatric Psychiatric: Reports systems reviewed and no addt'l complaints, except as documented Endocrine Endocrinology: Reports systems reviewed and no addt'l complaints, except as documented Hematologic/Lymphatic Hematologic/Lymphatic: Reports systems reviewed and no addt'l complaints, except as documented Allergic/Immunologic Allergic/Immunologic: Reports systems reviewed and no addt'l complaints, except as documented Physical Exam Const alert and oriented x3 HEENT normocephalic Eyes EOMs intact bilaterally Neck no JVD and no carotid bruits Chest Chest Narrative: Pacer incision site is healing well there is no evidence of accumulation of fluid. Chest: left pectoral incision Resp normal respiratory effort Auscultation: wheezes expiratory wheezes and posterior and diminished lung sounds diffuse Cardio Rate: bradycardia Rhythm: abnormal rhythm irregularly irregular Heart Sounds: S1 normal, S2 normal and murmur systolic (Difficult to auscultate due to pulmonary status) I/ soft mid; Negative for click or gallop GI normal to inspection, nondistended, normoactive bowel sounds Extremity no pedal edema Skin Skin Narrative: Pacer insertion site healing well. Neuro Neuro Narrative: Alert and oriented x 3. Have visual deficits related to macular degeneration. Psych mental status grossly normal Risk Stratification Risk Stratification Applicable: No Charges/Coding Visit Charges Inpatient E&M: 50685 Init Hosp L3 Objective Data Vital Signs: Vital Signs Temp Pulse Resp BP Pulse Ox O2 Del Method 97.8 F 40 L 18 115/57 L 95 Room Air 07/05/24 04:42 07/05/24 06:42 07/05/24 06:42 07/05/24 04:42 07/05/24 06:42 07/05/24 06:42 Oxygen Delivery Method Room Air Weight: 153 lb Body Mass Index (BMI) 22.6 Lab / Micro Data Attestation: I reviewed the patient's lab results. 07/05/24 02:02 07/05/24 02:02 Labs: Laboratory Results - last 24 hr 07/04/24 20:35: WBC 23.4 H, RBC 4.97, Hgb 15.0, Hct 43.9, MCV 88.3, MCH 30.2, MCHC 34.2, RDW Std Deviation 44.0 H, RDW Coeff of Benny 13.6, Plt Count 238, MPV 10.7, Immature Gran % (Auto) 0.800, Neut % (Auto) 91.7 H, Lymph % (Auto) 2.9 L, Mcdonough % (Auto) 4.5, Eos % (Auto) 0.0, Baso % (Auto) 0.1, Absolute Neuts (auto) 21.5 H, Absolute Lymphs (auto) 0.69 L, Nucleated RBC % 0, Differential Comment SCANNED, PT 13.4, INR 1.0, APTT 24.2, Sodium 141, Potassium 4.5, Chloride 107, Carbon Dioxide 21.6, Anion Gap 12, BUN 32 H, Creatinine 1.18, Estim Creat Clear Calc 50.76, Est GFR (MDRD) Non-Af 63, BUN/Creatinine Ratio 27.3 H, Glucose 285 H , Calcium 8.7, Total Bilirubin 1.18, Direct Bilirubin 0.54 H, AST 20, ALT 69 H, Alkaline Phosphatase 76, Total Protein 5.4 L, Albumin 3.7, Globulin 1.8 L 07/04/24 21:32: Lactic Acid 2.7 H* 07/04/24 22:25: Urine Color Yellow, Urine Clarity Clear, Urine pH 5.0, Ur Specific [place] 1.020, Urine Protein 100 H, Urine Glucose (UA) Normal, Urine Ketones Negative, Urine Occult Blood 10 H, Urine Nitrite Negative, Urine Bilirubin Negative, Urine Urobilinogen Normal, Ur Leukocyte Esterase 25 H, Urine RBC 0 SEEN, Urine WBC 0-5 SEEN, Ur Squamous Epith Cells 0-5 SEEN, Urine Bacteria 0 SEEN, Urine Mucus 0 SEEN 07/05/24 02:02: WBC 18.8 H, RBC 4.34 L, Hgb 13.2, Hct 38.0 L, MCV 87.6, MCH 30.4, MCHC 34.7, RDW Std Deviation 44.3 H, RDW Coeff of Benny 13.7, Plt Count 194, MPV 10.9, Sodium 140, Potassium 4.2, Chloride 110 H, Carbon Dioxide 18.6 L, Anion Gap 11, BUN 37 H, Creatinine 1.05, Estim Creat Clear Calc 56.00, Est GFR (MDRD) Non-Af 72, BUN/Creatinine Ratio 35.6 H, Glucose 209 H, Lactic Acid 1.8, Calcium 8.3 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 with occasional pacer capture beats and ventricular escape beats.) Cardiology Labs/Tests 07/04/24 20:35: WBC 23.4 H, RBC 4.97, Hgb 15.0, Hct 43.9, MCV 88.3, MCH 30.2, MCHC 34.2, Plt Count 238, MPV 10.7, Immature Gran % (Auto) 0.800, Neut % (Auto) 91.7 H, Lymph % (Auto) 2.9 L, Mcdonough % (Auto) 4.5, Eos % (Auto) 0.0, Baso % (Auto) 0.1, Absolute Neuts (auto) 21.5 H, Nucleated RBC % 0, PT 13.4, INR 1.0, APTT 24.2, Sodium 141, Potassium 4.5, Chloride 107, Carbon Dioxide 21.6, Anion Gap 12, BUN 32 H, Creatinine 1.18, Est GFR (MDRD) Non-Af 63, BUN/Creatinine Ratio 27.3 H, Glucose 285 H, Calcium 8.7, Total Bilirubin 1.18, Direct Bilirubin 0.54 H 07/04/24 21:32: Lactic Acid 2.7 H* 07/04/24 22:25: Urine Color Yellow, Urine Clarity Clear, Urine pH 5.0, Ur Specific [place] 1.020, Urine Protein 100 H, Urine Glucose (UA) Normal, Urine Ketones Negative, Urine Occult Blood 10 H, Urine Nitrite Negative, Urine Bilirubin Negative, Urine Urobilinogen Normal, Ur Leukocyte Esterase 25 H, Urine RBC 0 SEEN, Urine WBC 0-5 SEEN 07/05/24 02:02: WBC 18.8 H, RBC 4.34 L, Hgb 13.2, Hct 38.0 L, MCV 87.6, MCH 30.4, MCHC 34.7, Plt Count 194, MPV 10.9, Sodium 140, Potassium 4.2, Chloride 110 H, Carbon Dioxide 18.6 L, Anion Gap 11, BUN 37 H, Creatinine 1.05, Est GFR (MDRD) Non-Af 72, BUN/Creatinine Ratio 35.6 H, Glucose 209 H, Lactic Acid 1.8, Calcium 8.3 Rhythm: EKG: ECHO: Stress Test: Cardiac Cath: PCI: CT Surgery: Holter monitor: EPS: PPM: CXR: Chest CT Scan: Radiography Diagnostic Testing: Radiology Impression Chest X-Ray 07/04/24 20:46 IMPRESSION: Hazy bibasilar airspace opacities, may represent congestion/edema. Stable left-sided dual lead cardiac pacemaker. [facility] 07/04/24 21:07 IMPRESSION: Stable appearing left-sided dual lead cardiac pacemaker. Bibasilar hazy opacity may represent congestion/edema. Small left pleural effusion. [facility]
--- NOTE | 2024-07-05 09:53 | EKG12_ITS ---
Test Reason : Blood Pressure : */* mmHG Vent. Rate : 76 BPM Atrial Rate : 76 BPM P-R Int : 114 ms QRS Dur : 152 ms QT Int : 430 ms P-R-T Axes : 56 -89 74 degrees QTcB Int : 483 ms Atrial-sensed ventricular-paced rhythm Abnormal ECG When compared with ECG of 04-Jul-2024 20:32, MANUAL COMPARISON REQUIRED DATA IS UNCONFIRMED Confirmed by ELIA CARLOS, LONG ([id number]), editor school photograph EMMA PLASENCIA ([id number]) on 07/06/2024 10:39:38 AM Referred By: Marcial Camacho Confirmed By: LONG RODRIGEZ MD
[2024-07-05] MEDS: Enoxaparin 40 MG/0.4 ML Syringe SC (10:37)
[2024-07-05] MEDS: Multivitamin (Healthy Eyes) Capsule 1 CAP PO (10:37)
--- NOTE | 2024-07-05 12:06 | PCM.PROGNOTE ---
Subjective Subjective Patient seen and examined. He had no complaints today. He was admitted with a complaitn of dizziness and lightheadedness. His symptoms have improved, though he was still bradycardic this morning. Review of systems is otherwise negative. Objective Data Objective Data Vital Signs: Vital Signs Temp Pulse Resp BP Pulse Ox O2 Del Method 98.7 F 81 18 115/44 L 94 Room Air 07/05/24 10:00 07/05/24 10:00 07/05/24 10:00 07/05/24 10:00 07/05/24 10:00 07/05/24 10:00 Oxygen Delivery Method Room Air Weight: 153 lb Body Mass Index (BMI) 22.6 Lab / Micro Data 07/05/24 02:02 07/05/24 02:02 Labs: Laboratory Results - last 24 hr 07/04/24 20:35: WBC 23.4 H, RBC 4.97, Hgb 15.0, Hct 43.9, MCV 88.3, MCH 30.2, MCHC 34.2, RDW Std Deviation 44.0 H, RDW Coeff of Benny 13.6, Plt Count 238, MPV 10.7, Immature Gran % (Auto) 0.800, Neut % (Auto) 91.7 H, Lymph % (Auto) 2.9 L, [place] % (Auto) 4.5, Eos % (Auto) 0.0, Baso % (Auto) 0.1, Absolute Neuts (auto) 21.5 H, Absolute Lymphs (auto) 0.69 L, Nucleated RBC % 0, Differential Comment SCANNED, PT 13.4, INR 1.0, APTT 24.2, Sodium 141, Potassium 4.5, Chloride 107, Carbon Dioxide 21.6, Anion Gap 12, BUN 32 H, Creatinine 1.18, Estim Creat Clear Calc 50.76, Est GFR (MDRD) Non-Af 63, BUN/Creatinine Ratio 27.3 H, Glucose 285 H, Calcium 8.7, Total Bilirubin 1.18, Direct Bilirubin 0.54 H, AST 20, ALT 69 H, Alkaline Phosphatase 76, Total Protein 5.4 L, Albumin 3.7, Globulin 1.8 L 07/04/24 21:32: Lactic Acid 2.7 H* 07/04/24 22:25: Urine Color Yellow, Urine Clarity Clear, Urine pH 5.0, Ur Specific [place] 1.020, Urine Protein 100 H, Urine Glucose (UA) Normal, Urine Ketones Negative, Urine Occult Blood 10 H, Urine Nitrite Negative, Urine Bilirubin Negative, Urine Urobilinogen Normal, Ur Leukocyte Esterase 25 H, Urine RBC 0 SEEN, Urine WBC 0-5 SEEN, Ur Squamous Epith Cells 0-5 SEEN, Urine Bacteria 0 SEEN, Urine Mucus 0 SEEN 07/05/24 02:02: WBC 18.8 H, RBC 4.34 L, Hgb 13.2, Hct 38.0 L, MCV 87.6, MCH 30.4, MCHC 34.7, RDW Std Deviation 44.3 H, RDW Coeff of Benny 13.7, Plt Count 194, MPV 10.9, Sodium 140, Potassium 4.2, Chloride 110 H, Carbon Dioxide 18.6 L, Anion Gap 11, BUN 37 H, Creatinine 1.05, Estim Creat Clear Calc 56.00, Est GFR (MDRD) Non-Af 72, BUN/Creatinine Ratio 35.6 H, Glucose 209 H, Lactic Acid 1.8, Calcium 8.3 Radiography Diagnostic Testing: Radiology Impression Chest X-Ray 07/04/24 20:46 IMPRESSION: Hazy bibasilar airspace opacities, may represent congestion/edema. Stable left-sided dual lead cardiac pacemaker. [facility] 07/04/24 21:07 IMPRESSION: Stable appearing left-sided dual lead cardiac pacemaker. Bibasilar hazy opacity may represent congestion/edema. Small left pleural effusion. Reading [facility] 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 with occasional pacer capture beats and ventricular escape beats.) Physical Exam Const alert, oriented x3, no apparent distress and well nourished General Appearance: cooperative and well developed HEENT normocephalic, head/scalp atraumatic, moist oral mucous membranes and oropharynx normal Eyes PERRL and EOMs intact bilaterally Neck no lymphadenopathy and supple Lymph Lymphatic: no lymphadenopathy noted and no lymphedema noted Resp normal respiratory effort, normal air movement and clear to auscultation bilaterally Cardio S1 normal heart sound, S2 normal heart sound and no murmurs Cardio Narrative: bradycardia GI normal to inspection, nondistended, normoactive bowel sounds, soft to palpation, non-tender and non-distended Extremity normal capillary refill, no clubbing, cyanosis or edema and no calf tenderness General Extremity: no tenderness to palpation of joints or extremities Skin General Skin Exam: no breakdown Neuro CN's II-XII intact bilaterally, no focal motor deficits and no sensory deficits noted Coordination / Balance: [id number] test normal Motor Exam: strength 5/5 throughout and general weakness Psych thought process normal and cooperative Appearance: appropriate Assessment & Plan Assessment/Plan (1) Bradycardia: (2) Pacemaker failure: QUALIFIERS: Encounter type: initial encounter Qualified Code(s): T82.118A - Breakdown (mechanical) of other cardiac electronic device, initial encounter PLAN: Plan #Bradycardia due to malfunctioning pacemaker was recently in [facility] [place] for complete heat block; He had a pacemaker inserted o 06/29/2024 started feeling dizzy and lightheaded at home. Heart rate was 30-40; EKG showed pacemaker spikes, but no capture. cardiology consulted; PT/OT On board. Pacemaker rep to interrogate pacemaker fall precautions #COPD: not in exacerbation. Breathing treatment with bronchodilators. #Leucocytosis: wbc is 18.8 today. Was 23 yesterday. It is mainly neutrophilic. No clear evidence of infection. Urinalysis showed no evidence of UTI. CXR did show hazy bibasilar airspace opacities, which may represent congestion or edema, and stable left sided dual lead cardiac pacemaker. Leukocytosis may be reactive versus trending downwards on its own. Will hold off with antibiotics for now. He does not have any fever or cough. #Hypertension: on losartan which is on hold. #Hyperlipidemia: on statin #History of ankylosing spondylitis: on dupixent. #Ascending aortic aneurysm: follows up on outpatient basis with vascular surgery. CT abdomen in 2021 showed ascending aortic aneurysm with diameter of 4.2cm. Follow up with vascular surgery on outpatient basis. #Macular degeneration: to follow up with ophthalmology on outpatient basis. DVT prophylaxis: lovenox Charges/Coding Visit Charges Inpatient E&M: 85638 Subs Hosp L2
[2024-07-05] MEDS: Atorvastatin Calcium 20 MG Tablet PO (20:57)
--- NOTE | 2024-07-05 22:55 | NURSING ---
This RN taking over care at this time
[2024-07-06] VITALS (14 sets, daily range): BP systolic 122–173; BP diastolic 51–91; PULSE 60–92; RESP 16–22; TEMP 36.8–38.6; O2SAT 90–100
[2024-07-06 05:53] LABS: Absolute Lymphocyte Count 1.46 X10^3/uL (0.83-4.51); Absolute Neutrophil Count 8.2 X10^3/uL (2.0-7.7); Basophil# 0.02 X10^3/uL; Basophil% 0.2 % (0-1); Eosinophil# 0.68 X10^3/uL; Eosinophils% 5.9 % (0-5); Hematocrit 37.9 % (40-54); Hemoglobin 12.9 g/dL (13.0-16.5); Lymphocyte # 1.46 X10^3/ul (0.83-4.51); Lymphocyte % 12.6 % (19-41); Mean Corpuscular Hgb 30.5 pg (27.0-32.0); Mean Corpuscular Volume 89.6 fL (80-94); Mean Platelet Vol. 10.4 fl (6.2-12.0); Monocyte# 0.99 X10^3/uL; Monocyte% 8.5 % (0-10); NRBC Flagged by Analyzer 0 % (0-5); Neutrophil # 8.23 X10^3/uL (2.7-7.7); Platelet Count 192 K/mm3 (150-450); RBC Distribution Width CV 13.9 % (11.6-14.6); RBC Distribution Width SD 45.1 fl (35.1-43.9); Red Blood Count 4.23 M/mm3 (4.6-6.2); White Blood Count 11.6 K/mm3 (4.4-11.0)
[2024-07-06 06:18] LABS: Anion Gap 9 (5-15); BUN 26 mg/dL (4-19); BUN/Creat Ratio 26.7 RATIO (10-20); Calcium,Total 8.1 mg/dL (7.6-11.0); Carbon Dioxide 21.2 mmol/L (21.0-32.0); Chloride 113 mmol/L (98-108); Creatinine, Serum 0.97 mg/dL (0.70-1.20); EST Glomerular Filtration Rate 80 (>60); Estimated Creatinine Clearance 60.62 ml/min (50-250); Glucose 118 mg/dL (70-99); Potassium 4.1 mmol/L (3.3-5.1); Sodium Level 143 mmol/L (133-145)
[2024-07-06] MEDS: Ipratropium/Albuterol Sulfate 3 ML AMPUL.NEB INHALATION ×2 (06:41→20:50)
[2024-07-06] MEDS: Budesonide Respules 0.5 MG/2 ML AMPUL.NEB. INHALATION ×2 (06:41→20:51)
--- NOTE | 2024-07-06 07:34 | PCM.PN.CARD ---
Subjective Subjective Patient seen and evaluated. Events of the weekend noted. Objective Data Vital Signs: Vital Signs Temp Pulse Resp BP Pulse Ox O2 Del Method 98.4 F 68 18 150/51 H 91 Room Air 07/06/24 02:55 07/06/24 06:42 07/06/24 06:42 07/06/24 02:55 07/06/24 06:42 07/06/24 06:42 Oxygen Delivery Method Room Air Weight: 153 lb Body Mass Index (BMI) 22.6 Intake & Output: Intake and Output for Last 24 Hours 07/04/24 07/05/24 07/06/24 23:59 23:59 23:59 Intake Total 240 / 240 Output Total 300 / 650 475 / 475 Balance -300 / -410 -235 / -235 Lab / Micro Data 07/06/24 05:29 07/06/24 05:29 Labs: Laboratory Results - last 24 hr 07/06/24 05:29: WBC 11.6 H, RBC 4.23 L, Hgb 12.9 L, Hct 37.9 L, MCV 89.6, MCH 30.5, MCHC 34.0, RDW Std Deviation 45.1 H, RDW Coeff of Benny 13.9, Plt Count 192, MPV 10.4, Immature Gran % (Auto) 1.800 H, Neut % (Auto) 71.0 H, Lymph % (Auto) 12.6 L, [place] % (Auto) 8.5, Eos % (Auto) 5.9 H, Baso % (Auto) 0.2, Absolute Neuts (auto) 8.2 H, Absolute Lymphs (auto) 1.46, Nucleated RBC % 0, Sodium 143, Potassium 4.1, Chloride 113 H, Carbon Dioxide 21.2, Anion Gap 9, BUN 26 H, Creatinine 0.97, Estim Creat Clear Calc 60.62, Est GFR (MDRD) Non-Af 80, BUN/Creatinine Ratio 26.7 H, Glucose 118 H, Calcium 8.1 Rhythm Strip Ectopy: - (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 with occasional pacer capture beats and ventricular escape beats.) Cardiology Labs/Tests 07/06/24 05:29: WBC 11.6 H, RBC 4.23 L, Hgb 12.9 L, Hct 37.9 L, MCV 89.6, MCH 30.5, MCHC 34.0, Plt Count 192, MPV 10.4, Immature Gran % (Auto) 1.800 H, Neut % (Auto) 71.0 H, Lymph % (Auto) 12.6 L, [place] % (Auto) 8.5, Eos % (Auto) 5.9 H, Baso % (Auto) 0.2, Absolute Neuts (auto) 8.2 H, Nucleated RBC % 0, Sodium 143, Potassium 4.1, Chloride 113 H, Carbon Dioxide 21.2, Anion Gap 9, BUN 26 H, Creatinine 0.97, Est GFR (MDRD) Non-Af 80, BUN/Creatinine Ratio 26.7 H, Glucose 118 H, Calcium 8.1 Rhythm: AV paced EKG: ECHO: Stress Test: Cardiac Cath: PCI: CT Surgery: Holter monitor: EPS: PPM: CXR: Chest CT Scan: Physical Exam Const alert, oriented x3 and no apparent distress General Appearance: cooperative HEENT hearing grossly normal bilaterally Head and Scalp: atraumatic Eyes EOMs intact bilaterally Neck General: normal visual inspection Chest inspection of chest normal and palpation of chest normal Resp normal respiratory effort Auscultation: clear to auscultation bilaterally Cardio regular rate, regular rhythm, S1 normal heart sound and S2 normal heart sound Jugular Venous Distention: JVD GI normal to inspection, nondistended, normoactive bowel sounds Extremity normal capillary refill and no pedal edema Peripheral Pulses: Yes pulses 2+ throughout and femoral pulses present Skin no rashes or lesions noted Neuro oriented x3 and CN's II-XII intact bilaterally Psych Appearance: grossly normal and appropriate Assessment & Plan Assessment/Plan (1) Dislodgement of ventricular electrode lead of cardiac pacemaker: PLAN: Patient appears to have had a micro dislodgment of his permanent pacemaker. The above will be repositioned later today. This has been discussed with him and he understands and agrees to proceed.
[2024-07-06] MEDS: 0.9% Normal Saline (1000mL) 1,000 ML 15 ML IV (08:29)
--- NOTE | 2024-07-06 14:21 | EX.PACEMAKER ---
Pacemaker Procedure Note Pacemaker Procedure Note Permanent pacemaker repositioning. Temporary pacemaker placement Indication: Pacemaker micro dislodgment. Patient was brought to the [facility] in the postabsorptive nonsedated state. Informed consent was obtained. The left infraclavicular area was prepped and draped in the usual sterile manner and the right groin area was also prepped and draped in the usual sterile manner. A 7 [place] right femoral venous sheath was placed under fluoroscopic control. A temporary pacemaker was then advanced under fluoroscopic control to the right ventricular mid cavity. The temporary pacemaker was set at a rate of 50 bpm. It was then secured in position. Attention was then directed to the left infraclavicular area after reprepping, grounding and scrubbing. 1% lidocaine was used to infiltrate to the old pacemaker pocket area. A 1 and half inch incision was made over the old incision and the old pacemaker was then identified and removed. The pocket was inspected. No foreign bodies were noted. The secured sutures were then freed and the pacemaker under fluoroscopic control was then freed from the set screw position and repositioned. Appropriate capture was noted with adequate impedance. Patient's blood pressure was noted to be stable. The pacemaker lead was then connected to the ventricular port on the pacemaker generator and sutured back in place. The pocket was then rinsed thoroughly with Ancef solution and was dried. The wound was then closed in 2 layers with 3-0 and 4-0 Vicryl. Steri-Strips were applied. Patient tolerated the procedure well The temporary pacemaker was then removed under fluoroscopic control the sheath was also removed manual pressure held blood pressure remained stable.
--- NOTE | 2024-07-06 16:02 | CASEMGMT ---
TY JACOBO chart reveiw: Patient was admitted 06/27-06/30 for complete heart block and pacer placement, copd exacerbation. See assessment from 06/29/24. Patient was discharged to home with family support and follow-up plans in place. Patient returned to [facility] ED on 07/05/24 after experience bradycardia, lightheadedness, and lose of balance. Pacermaker was not functioning correctly. After pacer was interrogated, patient was taken to labels molder to have pacer repositioned. TY JACOBO in to discuss readmission and discharge plan, sister at bedside. Patient was taking medications as prescribed and following pacer restrictions. Patient returned to [facility] prior to follow-up appts. Patient and sister deny needs or help at discharge. Patient and sister had no further questions or concerns. CM will continue to follow this patient and plan for a safe discharge.
--- NOTE | 2024-07-06 18:47 | PN.HOSP_ITS ---
Reason for Visit Reason for Visit: Diagnoses Elevated white blood cell count, unspecified (07/05/24) Essential (primary) hypertension (07/05/24) Aneurysm of the ascending aorta, without rupture (07/05/24) Chronic obstructive pulmonary disease, unspecified (07/05/24) Bradycardia, unspecified (07/05/24) Breakdown (mechanical) of other cardiac electronic device, initial encounter (07/05/24) Displacement of cardiac electrode, initial encounter (07/05/24) Subjective Subjective Patient underwent repositioning of his pacemaker today and there were no complications. Objective Data Objective Data Vital Signs: Vital Signs Temp Pulse Resp BP Pulse Ox O2 Del Method 98.2 F 62 18 173/57 H 90 Room Air 07/06/24 09:30 07/06/24 17:00 07/06/24 17:00 07/06/24 17:00 07/06/24 17:00 07/06/24 18:00 Oxygen Delivery Method Room Air Weight: 69.4 kg Body Mass Index (BMI) 22.6 Intake & Output: Intake and Output for Last 24 Hours 07/04/24 07/05/24 07/06/24 23:59 23:59 23:59 Intake Total 240.25 / 240.25 Output Total 300 / 650 475 / 475 Balance -300 / -410 -234.75 / -234.75 Lab / Micro Data 07/06/24 05:29 07/06/24 05:29 Labs: Laboratory Results - last 24 hr 07/06/24 05:29: WBC 11.6 H, RBC 4.23 L, Hgb 12.9 L, Hct 37.9 L, MCV 89.6, MCH 30.5, MCHC 34.0, RDW Std Deviation 45.1 H, RDW Coeff of Benny 13.9, Plt Count 192, MPV 10.4, Immature Gran % (Auto) 1.800 H, Neut % (Auto) 71.0 H, Lymph % (Auto) 12.6 L, [place] % (Auto) 8.5, Eos % (Auto) 5.9 H, Baso % (Auto) 0.2, Absolute Neuts (auto) 8.2 H, Absolute Lymphs (auto) 1.46, Nucleated RBC % 0, Sodium 143, Potassium 4.1, Chloride 113 H, Carbon Dioxide 21.2, Anion Gap 9, BUN 26 H, Creatinine 0.97, Estim Creat Clear Calc 60.62, Est GFR (MDRD) Non-Af 80, B UN/Creatinine Ratio 26.7 H, Glucose 118 H, Calcium 8.1 Micro: Microbiology 07/04/24 22:25 Urine, Clean Catch Urine Culture - Preliminary Culture exhibits no growth. 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 with occasional pacer capture beats and ventricular escape beats.) Physical Exam Const alert, oriented x3, no apparent distress and healthy appearing General Appearance: cooperative, well kempt and well developed Orientation / Consciousness: awake, oriented to person, oriented to place and oriented to time HEENT normocephalic, head/scalp atraumatic and moist oral mucous membranes Eyes PERRL, EOMs intact bilaterally and conjunctivae normal Neck supple, no JVD, thyroid normal and no carotid bruits General: trachea midline Resp normal respiratory effort, no retractions, no use of accessory muscles and clear to auscultation bilaterally Auscultation: Negative for rales, rhonchi or wheezes Cardio regular rate, regular rhythm, S1 normal heart sound, S2 normal heart sound, no murmurs, no rub and no gallops GI normal to inspection, nondistended, normoactive bowel sounds, soft to palpation, non-tender and non-distended Extremity no clubbing, cyanosis or edema Skin no rashes or lesions noted Neuro oriented x3, CN's II-XII intact bilaterally, moves all extremities, no focal motor deficits and no sensory deficits noted Sensorium / Orientation: awake and alert Speech: speech normal Psych affect normal Assessment & Plan Assessment/Plan (1) Pacemaker failure: QUALIFIERS: Encounter type: initial encounter Qualified Code(s): T82.118A - Breakdown (mechanical) of other cardiac electronic device, initial encounter PLAN: Plan 1. 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
[2024-07-06] MEDS: 0.9% Saline Lock 10 ML Syringe IV (20:37)
[2024-07-06] MEDS: Losartan Potassium 100 MG Tablet PO (20:37)
[2024-07-06] MEDS: Atorvastatin Calcium 20 MG Tablet PO (20:37)
[2024-07-06] MEDS: Cefazolin 2 GM in Syringe IV (20:37)
[2024-07-06] MEDS: Acetaminophen 325 MG Tablet 650 MG PO (20:55)
[2024-07-07] VITALS (8 sets, daily range): BP systolic 112–160; BP diastolic 50–61; PULSE 63–93; RESP 17–20; TEMP 36.6–37.4; O2SAT 88–97
--- NOTE | 2024-07-07 05:20 | RAD_ITS ---
PROCEDURE: CHEST PA AND LATERAL 07/07/2024 REASON FOR EXAM: POST PERMANANT ICD/PACEMAKER TECHNIQUE: Frontal and lateral views of the chest. COMPARISON: Chest x-ray dated 07/04/2024. FINDINGS: The cardiac silhouette is prominent. There is diffuse bilateral patchy alveolar infiltrates. These findings are new since prior examination. This could suggest acute multifocal pneumonia versus florid pulmonary edema. Pacemaker remains overlying the left chest. There is no pneumothorax. No acute osseous abnormality seen. RAD/Chest PA and Lateral IMPRESSION: Diffuse fluffy bilateral alveolar infiltrates, new/significantly worsened since prior examination. This may represent significant multifocal pneumonia versus florid pulmonary edema. No pneumothora x. Reading Location: [id number]
[2024-07-07] MEDS: Budesonide Respules 0.5 MG/2 ML AMPUL.NEB. INHALATION (07:28)
[2024-07-07] MEDS: Ipratropium/Albuterol Sulfate 3 ML AMPUL.NEB INHALATION ×2 (07:28→13:09)
--- NOTE | 2024-07-07 08:55 | DCINST_ITS ---
Discharge Instructions Diet Discharge Diet: No restrictions (as you feel able. No excessive stretching. No lifting your arm over your head (keep elbow below shoulder level) until seen for your pacemaker check. Do not lift your elbow away from your side until you are seen for your first visit. Keep the arm sling on if it helps remind you not to lift your arm.) DC O2, CPAP, BIPAP needs Home O2 Discharge instructions: No Dressing / Incision Discharge Activity: May Not Drive May shower in (days): 2 Additional Activity Instructions:: May shower or bathe on [day 3]. Do not scrub the incision or soak in the tub. Just wash with soap and let the water run over the incision. Gently pat dry with towel. Medications: Take your pain medication as directed. Refer to your discharge instruction sheet for a list of medications you are to take. Dressing / Incision Call your doctor if your incision/area has: Continuous Slow Oozing, Sudden Increased Bleeding, Increased Pain/ Swelling, Increased Redness, Foul Smelling Discharge and Swelling at the incision site Call your doctor if you observe: Fever of 101 or Higher, Shortness of breath, Dizziness, Fainting spells, Swelling in the ankles, Chest pain, Prolonged hiccupping and Increased palpitations (irregular heartbeat) Suture Line Care: Avoid Pulling/Pushing and Avoid Pinching/Bending Cleanse incision/area with: Do not get Incision Wet and Keep Dressing Clean & Dry Additional Dressing/Incision Instructions:: When dressing is removed, wash and dry incision. Keep covered with a light bandage if it is rubbing against your clothing. Do not cover the incision with an airtight bandage. Change the bandage daily. Do not remove steri strips. The strips will fall off on their own. Keep arm in sling for at least 3 days. Follow Up Care Please Follow Up With: Fazal Pal MD When: Pacer follow-up on July 15 at 11 AM Test Results: Test results from this visit will be discussed in further detail at your follow- up appointment, if applicable. Discharge Plan Admission Admit Date/Time: 07/05/24 13:32 Attending Provider: Hardik Briseno Primary Care Provider: Lucia Trimble Consulting Providers: Peng Velarde; Marcial Camacho; Camilla Anton Discharge Orders/Prescriptions Prescriptions: No Action PreserVision AREDS-2 [id number]-mg capsule 1 tablet PO DAILY Rx Instructions: administer with meals Dupixent Pen 300 mg/2 mL pen injector 300 mg subcut Q2W cholecalciferol (vitamin D3) 125 mcg (5,000 unit) capsule 125 mcg PO DAILY Trelegy Ellipta 100-62.5-25 mcg blister with device 1 inh inhalation DAILY Qty: 3 3RF losartan 50 mg tablet 50 mg PO DAILY Qty: 90 1RF prednisone 20 mg tablet 40 mg PO DAILY Qty: 10 0RF fluoride (sodium) [SF 5000 Plus] 1.1 % cream PO DAILY simvastatin 40 mg tablet 40 mg PO DAILY Qty: 90 1RF Referrals / Follow Up: Lucia Trimble MD [Primary Care Provider] -
[2024-07-07] MEDS: Multivitamin (Healthy Eyes) Capsule 1 CAP PO (09:44)
[2024-07-07] MEDS: Losartan Potassium 100 MG Tablet PO (09:44)
[2024-07-07] MEDS: Cefazolin 2 GM in Syringe IV (09:44)
--- NOTE | 2024-07-07 10:11 | PCM.DC ---
Discharge Instructions Diet Discharge Diet: No restrictions (as you feel able. No excessive stretching. No lifting your arm over your head (keep elbow below shoulder level) until seen for your pacemaker check. Do not lift your elbow away from your side until you are seen for your first visit. Keep the arm sling on if it helps remind you not to lift your arm.) DC O2, CPAP, BIPAP needs Home O2 Discharge instructions: No Dressing / Incision May shower in (days): 2 Weight Bearing Status: Full weight bearing Additional Activity Instructions:: May shower or bathe on [day 3]. Do not scrub the incision or soak in the tub. Just wash with soap and let the water run over the incision. Gently pat dry with towel. Medications: Take your pain medication as directed. Refer to your discharge instruction sheet for a list of medications you are to take. Dressing / Incision Call your doctor if your incision/area has: Continuous Slow Oozing, Sudden Increased Bleeding, Increased Pain/ Swelling, Increased Redness, Foul Smelling Discharge and Swelling at the incision site Call your doctor if you observe: Fever of 101 or Higher, Shortness of breath, Dizziness, Fainting spells, Swelling in the ankles, Chest pain, Prolonged hiccupping and Increased palpitations (irregular heartbeat) Suture Line Care: Avoid Pulling/Pushing and Avoid Pinching/Bending Cleanse incision/area with: Do not get Incision Wet and Keep Dressing Clean & Dry Additional Dressing/Incision Instructions:: When dressing is removed, wash and dry incision. Keep covered with a light bandage if it is rubbing against your clothing. Do not cover the incision with an airtight bandage. Change the bandage daily. Do not remove steri strips. The strips will fall off on their own. Keep arm in sling for at least 3 days. Follow Up Care Please Follow Up With: Fazal Pal MD Test Results: Test results from this visit will be discussed in further detail at your follow-up appointment, if applicable. Discharge Plan Admission Admit Date/Time: 07/05/24 13:32 Primary Reason for Your Visit: Dysfunctional pacemaker Attending Provider: aHrdik Briseno Primary Care Provider: Lucia Trimble Consulting Providers: Peng Velarde; Marcial Camacho; Camilla Anton Instructions Additional Instructions / Restrictions: Your losartan was increased to 100 mg daily-you have 50 mg tablets at home, you may take 2 tablets once a day until you use it up, a new prescription was called in for the 100 mg tablets to your pharmacy Discharge Orders/Prescriptions Prescriptions: New losartan 100 mg Tablet 100 mg PO DAILY Qty: 30 0RF Continued PreserVision AREDS-2 [id number]-etwe-eb-mg capsule 1 tablet PO DAILY Rx Instructions: administer with meals Dupixent Pen 300 mg/2 mL pen injector 300 mg subcut Q2W cholecalciferol (vitamin D3) 125 mcg (5,000 unit) capsule 125 mcg PO DAILY Trelegy Ellipta 100-62.5-25 mcg blister with device 1 inh inhalation DAILY Qty: 3 3RF prednisone 20 mg tablet 40 mg PO DAILY Qty: 10 0RF fluoride (sodium) [SF 5000 Plus] 1.1 % cream PO DAILY simvastatin 40 mg tablet 40 mg PO DAILY Qty: 90 1RF Discontinued losartan 50 mg tablet 50 mg PO DAILY Qty: 90 1RF Referrals / Follow Up: Lucia Trimble MD [Primary Care Provider] - Within 1 Month Fazal Pal MD [Med Staff - Active Staff] - See Referral Note (Your appointment is on 07/15/2024 at 11 AM) Disposition Disposition (needs filled in before D/C Order can be placed): Home, Self Care
--- NOTE | 2024-07-07 10:17 | DS.PCM_ITS ---
Providers Date of Admission: 07/05/24 Date of Discharge: 07/07/24 Primary Care Physician: Dr. Lucia Trimble MD Consultations 07/04/24 22:56 Consult: Cardiology Routine Consulting Provider: Peng Velarde Reason for Consult: pacemaker failure EMERGENT Consult: No Notified: Yes Date Notified: 07/05/24 Time Notified: 06:24 Method of Notification: Text Reason For Visit: PACEMAKER FAILURE Diagnosis Discharge Diagnosis (1) Pacemaker failure: Status: Inactive Code(s): T82.118A - Breakdown (mechanical) of other cardiac electronic device, initial encounter Qualifiers: Encounter type: initial encounter Qualified Code(s): T82.118A - Breakdown (mechanical) of other cardiac electronic device, initial encounter Plan 1. 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-patient appears stable at this time, he will be monitored on telemetry and cardiology will participate in his care #2 essential hypertension-patient is currently on losartan #3 chronic obstructive pulmonary disease-patient is currently on aerosol treatments #4 hypoxia Total clinical time spent by myself addressing the patient's medical issues, reviewing all of his data, and collaborating with patient's care team: 35 minutes Medications at Discharge Home Medications vit C 250 mg-vit E 90 mg-zinc 40 mg-copper 1 [id number] capsule (PreserVision AREDS-2) 1 tablet PO DAILY eye health 06/21/20 dupilumab 300 mg/2 mL subcutaneous pen injector (Dupixent) 300 mg subcut Q2W eczema 07/11/21 cholecalciferol (vitamin D3) 125 mcg (5,000 unit) capsule 125 mcg PO DAILY supplement 01/14/23 fluticasone fur. 100 mcg-umeclid 62.5 mcg-vilant 25 mcg inhalat.powder (Trelegy Ellipta) 1 inh inhalation DAILY breathing #3 ea 05/08/24 simvastatin 40 mg tablet 40 mg PO DAILY cholesterol #90 tabs 05/19/24 prednisone 20 mg tablet 40 mg (2 x 20 mg) PO DAILY #10 tabs 06/30/24 fluoride (sodium) 1.1 % dental cream (SF 5000 Plus) applic PO DAILY 07/04/24 albuterol sulfate 90 mcg/actuation aerosol inhaler 2 puff inhalation .QID #6.7 grams 07/07/24 doxycycline monohydrate 100 mg tablet 100 mg PO BID #28 tabs 07/07/24 losartan 100 mg tablet 100 mg PO DAILY #30 tabs 07/07/24 prednisone 20 mg tablet 40 mg (2 x 20 mg) PO DAILY #18 tabs 07/07/24 Hospital Course Operations None Procedures - (Repositioning of permanent pacemaker) Summary of Care Provided Minutes Spent on Discharge: 32 Hospital Course: This 79-year-old white male was seen in the emergency room at [facility] with complaints of lightheadedness. He had been hospitalized recently for complete heart block and had a permanent pacemaker inserted on 06/29/2024. Several days later, patient began to have lightheadedness at home which has worsened over the past few days. His daughter checked his heart rate and found it was in the 30s to 50s, cardiology was contacted by them and they advised the patient to come to the ER. In the emergency room, patient's heart rate was found to be in the 30s to 40s, EKG showed pacemaker spikes but no beats following the spikes. History was discussed with cardiology, chest x-ray showed the pacemaker leads to be in appropriate position, white blood cell count was noted to be elevated at 23,000 but the patient had been on corticosteroids recently. Patient was admitted to PCU and seen in consultation by cardiology, cardiology recommended repositioning of the pacemaker and the [facility] was [facility] and the pacemaker was repositioned and there was appropriate capture. Patient was checked before discharged, a home oxygen qualification test was carried out and it was noted that the patient required 2 L of oxygen on ambulation only. I discussed this with the patient at length and he stated he did not want to go home with oxygen. On 07/07/2024, patient was seen and examined: On examination he appeared in good health and spirits. Vital signs as documented. Skin warm and dry and without overt rashes. Neck without JVD, neck was supple, trachea midline, thyroid was normal. Lungs clear bilaterally, normal air movement was noted. Heart exam notable for regular rhythm, normal sounds and absence of murmurs, rubs or gallops. Abdomen unremarkable and without evidence of organomegaly, masses, or abdominal aortic enlargement. Bowel sounds are present, abdomen is not distended. Extremities nonedematous, no cyanosis was noted, no clubbing was noted. Neuro: Cranial nerves II through XII are grossly intact, no focal motor deficits were noted, sensation to light touch and pinprick intact, motor exam 5/5 throughout. Psych: Patient is alert and oriented x3, he does not appear anxious or depressed, he does not appear agitated. Patient was felt to be stable for discharge home on 07/07/2024. Weight / BMI Weight Weight: 69.4 kg Body Mass Index (BMI) 22.6 ABG / Lab / Microbiology Data 07/06/24 05:29 07/06/24 05:29 Microbiology: Microbiology 07/04/24 21:30 Blood Culture (Wb) - Right Wrist Blood Culture - Final No growth in 5 days. 07/04/24 21:32 Blood Culture (Wb) - Anticubital Left Blood Culture - Final No growth in 5 days. 07/04/24 22:25 Urine, Clean Catch Urine Culture - Final Culture exhibits no growth. Radiography Diagnostic Testing: Radiology Impression Chest X-Ray 07/07/24 05:20 IMPRESSION: Diffuse fluffy bilateral alveolar infiltrates, new/significantly worsened since prior examination. This may represent significant multifocal pneumonia versus florid pulmonary edema. No pneumothorax. Reading Location: [id number] Instructions Discharge Diet: No restrictions (as you feel able. No excessive stretching. No lifting your arm over your head (keep elbow below shoulder level) until seen for your pacemaker check. Do not lift your elbow away from your side until you are seen for your first visit. Keep the arm sling on if it helps remind you not to lift your arm.) May shower in (days): 2 Weight Bearing Status: Full weight bearing Additional Activity Instructions: May shower or bathe on [day 3]. Do not scrub the incision or soak in the tub. Just wash with soap and let the water run over the incision. Gently pat dry with towel. Medications: Take your pain medication as directed. Refer to your discharge instruction sheet for a list of medications you are to take. Call your doctor if your incision/area has: Continuous Slow Oozing, Sudden Increased Bleeding, Increased Pain/ Swelling, Increased Redness, Foul Smelling Discharge and Swelling at the incision site Call your doctor if you observe: Fever of 101 or Higher, Shortness of breath, Dizziness, Fainting spells, Swelling in the ankles, Chest pain, Prolonged hiccupping and Increased palpitations (irregular heartbeat) Suture Line Care: Avoid Pulling/Pushing and Avoid Pinching/Bending Cleanse incision/area with: Do not get Incision Wet and Keep Dressing Clean & Dry Additional Dressing/Incision Instructions: When dressing is removed, wash and dry incision. Keep covered with a light bandage if it is rubbing against your clothing. Do not cover the incision with an airtight bandage. Change the bandage daily. Do not remove steri strips. The strips will fall off on their own. Keep arm in sling for at least 3 days. DC O2, CPAP, BIPAP Needs Home O2 Discharge instructions: No Please Follow Up With: Fazal Pal MD When: Pacer follow-up on July 15 at 11 AM Meaningful Use Info Meaningful Use Meaningful Use Diagnoses (Choose all that apply): None applicable Ischemic Stroke Statin Dosing Therapy Reference: STATIN DOSE THERAPY REFERENCE: * Patients > 75 years receive moderate or high dose statin therapy. * Patients 75 years or YOUNGER should receive HIGH intensity statin dose unless contraindicated. You will be required to document reason for non-treatment if statin daily dose does not meet guidelines. HIGH DOSE STATIN THERAPY DAILY Atorvastatin > than or = to 40 mg Rosuvastatin > than or = to 20 mg Amlodipine + Atorvastatin > than or = to 2.5/40 mg Ezetimibe + Simvastatin 10/80 mg Simvastatin 80mg Discharge Plan Admission Admit Date/Time: 07/05/24 13:32 Primary Reason for Your Visit: Dysfunctional pacemaker Attending Provider: Hardik Briseno Primary Care Provider: Lucia Trimble Consulting Providers: Peng Velarde; Marcial Camacho; Camilla Anton Instructions Additional Instructions / Restrictions: Your losartan was increased to 100 mg daily-you have 50 mg tablets at home, you may take 2 tablets once a day until you use it up, a new prescription was called in for the 100 mg tablets to your pharmacy Your pulmonary doctor's office will contact you regarding an appointment Discharge Orders/Prescriptions Prescriptions: New losartan 100 mg Tablet 100 mg PO DAILY Qty: 30 0RF doxycycline monohydrate 100 mg tablet 100 mg PO BID Qty: 28 0RF Rx Instructions: Take with food prednisone 20 mg tablet 40 mg PO DAILY Qty: 18 0RF Rx Instructions: 40 mg daily for 6 days, then 20 mg daily for 6 days, then discontinue albuterol sulfate 90 mcg/actuation HFA aerosol inhaler 2 puff inhalation .QID Qty: 6.7 0RF Rx Instructions: Take 2 puffs 4 times a day for 7 days, then use 2 puffs 4 times a day as needed for wheezing Continued PreserVision AREDS-2 [id number] et-awsu-xv-mg capsule 1 tablet PO DAILY Rx Instructions: administer with meals Dupixent Pen 300 mg/2 mL pen injector 300 mg subcut Q2W cholecalciferol (vitamin D3) 125 mcg (5,000 unit) capsule 125 mcg PO DAILY Trelegy Ellipta 100-62.5-25 mcg blister with device 1 inh inhalation DAILY Qty: 3 3RF prednisone 20 mg tablet 40 mg PO DAILY Qty: 10 0RF fluoride (sodium) [SF 5000 Plus] 1.1 % cream PO DAILY simvastatin 40 mg tablet 40 mg PO DAILY Qty: 90 1RF Discontinued losartan 50 mg tablet 50 mg PO DAILY Qty: 90 1RF Referrals / Follow Up: Lucia Trimble MD [Primary Care Provider] - Within 1 Month Fazal Pal MD [Med Staff - Active Staff] - See Referral Note (Your appointment is on 07/15/2024 at 11 AM) Gilma Dixon NP, [employer] [Med Staff - Adv Practice Prof] - See Referral Note (The office will contact you to schedule an appointment within the next month) Disposition Disposition (needs filled in before D/C Order can be placed): Home, Self Care Charges/Coding Visit Charges Inpatient E&M: 62861 Disch Hosp >30min
--- NOTE | 2024-07-07 10:55 | PHA.DC.MC.R ---
Pharmacy [facility] Service has performed discharge medication reconciliation and counseling for this patient. The patient's discharge medication list was reviewed for discrepancies and discrepancies were resolved. The patient was counseled on the following discharge medications and changes in medications for homegoing were reviewed. The Reason for Use, instructions for use, and potential side effects were reviewed for all new medications. The patient's questions regarding all of their medications were answered. 1. Losartan 100 mg PO daily. The patient was able to verbally demonstrate an understanding of their discharge medications. Medications at Discharge Home Medications vit C 250 mg-vit E 90 mg-zinc 40 mg-copper 1 [id number]-arwavt-nzoczm capsule (PreserVision AREDS-2) 1 tablet PO DAILY eye health 06/21/20 dupilumab 300 mg/2 mL subcutaneous pen injector ([employer]) 300 mg subcut Q2W eczema 07/11/21 cholecalciferol (vitamin D3) 125 mcg (5,000 unit) capsule 125 mcg PO DAILY supplement 01/14/23 fluticasone fur. 100 mcg-umeclid 62.5 mcg-vilant 25 mcg inhalat.powder (Trelegy Ellipta) 1 inh inhalation DAILY breathing #3 ea 05/08/24 simvastatin 40 mg tablet 40 mg PO DAILY cholesterol #90 tabs 05/19/24 prednisone 20 mg tablet 40 mg (2 x 20 mg) PO DAILY #10 tabs 06/30/24 fluoride (sodium) 1.1 % dental cream (SF 5000 Plus) applic PO DAILY 07/04/24 losartan 100 mg tablet 100 mg PO DAILY #30 tabs 07/07/24
--- NOTE | 2024-07-07 13:02 | CASEMGMT ---
Patient has order for discharge. RN CM in to discuss needs at discharge, sister at bedside. Patient and sister deny needs at discharge. Patient and sister had no further questions or cocerns.
== END 2024-07-07 15:18 | disposition home or self-care (01) | DRG 261 ==
LOC: ED 22:15 → PCU 22:23
PROVIDERS: Student in an Organized Health Care Education/Training Program; Admitting Provider Hospitalist; Emergency Provider Emergency Medicine; PCP Internal Medicine; Referring Provider Hospitalist; Visit Provider Internal Medicine
DX: T82.120A Displacement of cardiac electrode, initial encounter (principal); I44.2 Atrioventricular block, complete; J99 Respiratory disorders in diseases classified elsewhere; M45.9 Ankylosing spondylitis of unspecified sites in spine; J44.9 Chronic obstructive pulmonary disease, unspecified; I71.21 Aneurysm of the ascending aorta, without rupture; I10 Essential (primary) hypertension; I35.0 Nonrheumatic aortic (valve) stenosis; E78.5 Hyperlipidemia, unspecified; H35.30 Unspecified macular degeneration; F17.210 Nicotine dependence, cigarettes, uncomplicated; G47.33 Obstructive sleep apnea (adult) (pediatric); R00.1 Bradycardia, unspecified; K22.5 Diverticulum of esophagus, acquired; Z79.51 Long term (current) use of inhaled steroids; Z95.0 Presence of cardiac pacemaker; Z99.89 Dependence on other enabling machines and devices; I49.3 Ventricular premature depolarization; Z87.01 Personal history of pneumonia (recurrent); Z79.899 Other long term (current) drug therapy; Z79.02 Long term (current) use of antithrombotics/antiplatelets; Z79.52 Long term (current) use of systemic steroids; Y71.2 Prosthetic and other implants, materials and accessory cardiovascular devices associated with adverse incidents
CPT/HCPCS: 33210; 33215; 36415; 71045; 71046; 74018; 80048; 80076; 81001; 83605; 85025; 85027; 85610; 85730; 87040; 87086; 93005; 94640; 94668; 99152; 99153; 99252; 99285; A4216; C1894; G0463

== ENCOUNTER → 2024-07-15 | Outpatient (CLI) | payer MEDICARE, OTHER, SELFPAY ==
--- NOTE | 2024-07-15 14:20 | RAD_ITS ---
PROCEDURE: CHEST PA AND LATERAL 07/15/2024 REASON FOR EXAM: LOCULATED PLEURAL EFFUSION ON CHEST CT 06/27/24 TECHNIQUE: Frontal and lateral views of the chest. COMPARISON: Chest x-ray study dated 07/07/2024 FINDINGS: Heart size and configuration are within normal limits. Pulmonary vasculature and hilar structures are unremarkable. Arteriosclerotic vascular disease of the aorta is noted. Trachea is midline. Cardiac pacemaker device is identified in the left pectoral region with 2 intact leads in satisfactory position. Bilateral diffuse patchy airspace disease possesses are again identified and are most compatible with pneumonic infiltrates. These are similar when the prior exam. There appears to be a small left pleural effusion. Right costophrenic angle is sharp. Increased kyphotic curvature of the thoracic spine is noted. Diffuse osteopenia of the bony thorax is seen. There appears to be diffuse idiopathic skeletal hyperostosis of the thoracic spine. RAD/Chest PA and Lateral IMPRESSION: Bilateral airspace disease processes most likely representing pneumonic infiltr ates. Diffuse osteopenia bony thorax. 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 Reading Location: [id number]
== END | disposition home or self-care (01) ==
PROVIDERS: PCP Internal Medicine; Referring Provider Nurse Practitioner Family; Visit Provider Nurse Practitioner Family
DX: J90 Pleural effusion, not elsewhere classified (principal); R06.02 Shortness of breath
CPT/HCPCS: 71046

== ENCOUNTER → 2024-08-19 | Outpatient (CLI) | payer MEDICARE, OTHER, SELFPAY ==
--- OUTSIDE RECORDS SUMMARY | 2024-08-19 07:00 | XMS RPT_ITS | CCD ---
Author Organization [facility] Care Team Providers Care Certified Family Mediator Name Role Phone Colin Saeed Admitting Unavailable Colin Saeed Attending Unavailable Janes Jade Primary Care Unavailable Colin Saeed Admitting Unavailable Colin Saeed Attending Unavailable TomJanes vicente Primary Care Unavailable Colin Saeed Admitting Unavailable Colin Saeed Attending Unavailable TomJanes vicente Primary Care Unavailable Christophe, Colin Coronado Admitting Unavailable Colin Saeed Attending Unavailable Janes Jade Primary Care Unavailable Janes Jade Admitting Unavailable TomJanes vicente Attending Unavailable TomJanes vicente Primary Care Unavailable Christophe, Colin Coronado Admitting Unavailable Christophe, Colin Coronado Attending Unavailable Christophe, Colin Coronado Primary Care Unavailable Christophe, Colin Coronado Admitting Unavailable Colin Saeed Attending Unavailable Colin Saeed Primary Care Unavailable JANES JADE Consulting Unavailable GATO GARCÍA Attending Unavailable GATO GARCÍA Primary Care Unavailable RAQUELGATO MORENO Admitting Unavailable PROVIDER, UNKNOWN Consulting Unavailable JANES JADE Consulting Unavailable RAQUELGATO MORENO Attending Unavailable RAQUELGATO MORENO Primary Care Unavailable GATO GARCÍA Admitting Unavailable PROVIDER, UNKNOWN Consulting Unavailable Dr. Janes Jade Primary Care Provider [phone] Braxton SYSTEM SUPPORT ANALYST, SYSTEM SUPPORT ANALYST-C Abimbola Attending Provider [phone] Braxton SYSTEM SUPPORT ANALYST, SYSTEM SUPPORT ANALYST-C Abimbola Referring Provider Dr. Janes Jade Referring Provider [phone] Dr. Fazal Pal Attending Provider Dr. Janes Jade Primary Care Provider [phone] Dr. Aj Garza Attending Provider Dr. Janes Jade Primary Care Provider [phone] Dr. Fazal Pal Attending Provider Dr. Janes Jade Referring Provider Dr. Aj Garza Attending Provider Dr. Aj Garza Referring Provider Dr. Aj Garza Other Provider Dr. Prasad Ortiz Attending Provider Dr. Janes Jade Primary Care Provider Dr. Janes Jade Primary Care Provider Dr. Janes Jade Referring Provider Zack SYSTEM SUPPORT ANALYST, SYSTEM SUPPORT ANALYST-C Gilma Attending Provider [phone] Dr. Janes Jade Primary Care Provider Dr. Janes Jade Referring Provider [phone] Zack SYSTEM SUPPORT ANALYST, SYSTEM SUPPORT ANALYST-C Gilma Attending Provider [phone] Darnell DANIELSON, SYSTEM SUPPORT ANALYST-C Josy Attending Provider Janes Jade MD Primary Care Provider [phone] Unavailable Primary Care Provider Lucia Rodriguez MD Primary Care Provider ABRIL PISANO II Attending JANES Arango Primary Care Unavailable ABRIL PISANO II Referring UnavailABRIL Chavarria II Attending Dr. Lucia Rodriguez MD Primary Care Provider [phone] Dr. Lucia Trimble MD Referring Provider Zack DANIELSON-CGilma Attending Provider Elieser Rodriguez Attending Provider Elieser Rodriguez Referring Provider Jacob SYSTEM SUPPORT ANALYST-CWilian Attending Provider Shakeel CARLOS, Dr. Victor Emergency Provider [phone] Dr. Janes Jose DO Admit Provider Unavail able de Chaparro DO, Dr. Jimenez Attending Provider Unav ailable de Chaparro DO, Dr. Jimenez Other Provider Unavail able Torres CARLOS, Dr. Ashraf Other Provider Alonso CARLOS, Dr. Alberto Rivera Attending Provider Dony STUART, Dr. Chen Other Provider Dony STUART, Dr. Chen Attending Provider Torres CARLOS, Dr. Ashraf Attending Provider Demarco CARLOS, Dr. Diehl Attending Provider Alonso CARLOS, Dr. Alberto Rivera Other Provider Sherin Boone Attending Provider Unavailable Syd CARLOS, Dr. Khoury Attending Provider de Chaparro STUART, Dr. Jimenez Referring Provider Unav ailable Patsy STUART, Dr. Malave Emergency Provider Janice STUART, Dr. Ceja Admit Provider Janice STUART, Dr. Ceja Attending Provider Dr. Marcial Camacho DO Referring Provider Janice STUART, Dr. Ceja Other Provider Syd CARLOS, Dr. Khoury Other Provider [phone] Desean CARLOS, Dr. Camilla Barraza Other Provider Dr. Hardik Briseno DO Attending Provider Suzanna STUART, Dr. Dye Other Provider Janice STUART, Dr. Ceja Referring Provider Veronica Hernandez Attending Provider Veronica Hernandez Referring Provider Veronica Conner Referring Unavailable Veronica Conner Attending Unavailable Lucia Trimble Primary Care Unavailable Gilma Dixon NP Referring Unavailable Zack DANIELSON, Gilma Attending Unavailable Lucia Trimble Primary Care Unavailable Veronica Conner Referring Unavailable Veronica Conner Attending Unavailable [place], Lucia Primary Care Unavailable Elieser Rodriguez Referring Unavailable Elieser Rodriguez Attending Unavailable [place], Lucia Primary Care Unavailable Demarco Fazal Attending Unavailable [place], Lucia Primary Care Unavailable Elissa Antona Christi Attending Unavailable Peng Velarde Consulting Unavailable Janice, Marcial Admitting Unavailable Mosteller, Marcial Referring Unavailable Atilio, Lucia Primary Care Unavailable Marcial Camacho Consulting Unavailable Desean, Camilla Christi Consulting Unavailable Peng Velarde Consulting Unavailable Peng Velarde Attending Unavailable Mosteller, Marcial Admitting Unavailable Mosteller, Marcial Referring Unavailable [place], Lucia Primary Care Unavailable Marcial Camacho Consulting Unavailable Desean, Camilla Christi Consulting Unavailable Janes Jose Referring Unavailable Peng Velarde Attending Unavailable Atilio, Lucia Primary Care Unavailable DemarcoFazal Attending Unavailable Atilio, Lucia Primary Care Unavailable Sherin Boone Attending Unavailable Atilio, Lucia Primary Care Unavailable Atilio, Lucia Referring Unavailable Atilio, Lucia Primary Care Unavailable Demarco, Hecker Attending Unavailable Atilio, Lucia Primary Care Unavailable Demarco, Hecker Attending Unavailable Atilio, Lucia Referring Unavailable Janes Jose Consulting Unavailable Janes Jose Admitting Unavailable Janes Jose Attending Unavailable Atilio, Lucia Primary Care Unavailable Alberto Gupta Attending Unavailable Andriy Macdonald Consulting Unavailable April Napoles Consulting Unavailable Alberto Gupta Consulting Unavailable Hardik Briseno Attending Unavailable Hardik Briseno Consulting Unavailable Fazal Pal Attending Unavailable Christopher Francis Attending Unavailable Atilio, Lucia Primary Care Unavailable Atilio, Lucia Referring Unavailable Elieser Rodriguez Attending Unavailable Atilio, Lucia Referring Unavailable [place], Lucia Primary Care Unavailable Gilma Dixon NP Attending Unavailable Atilio, Lucia Primary Care Unavailable [place], Lucia Referring Unavailable Demarco, Fazal Attending Unavailable [place], Lucia Primary Care Unavailable Veronica Conner Attending Unavailable Atilio, Lucia Primary Care Unavailable [place], Lucia Referring Unavailable Janes Jose Consulting Unavailable Janes Jose Admitting Unavailable Alberto Gupta Attending Unavailable Atilio, Lucia Primary Care Unavailable Torres, Farouk Consulting Unavailable April Napoles Consulting Unavailable Demarco, Fazal Attending Unavailable Atilio, Lucia Primary Care Unavailable Hardik Briseno Attending Unavailable Peng Velarde Consulting Unavailable Marcial Camacho Referring Unavailable Mosteller, Marcial Admitting Unavailable Atilio, Lucia Primary Care Unavailable Marcial Camacho Consulting Unavailable Camilla Anton Consulting Unavailable April Napoles Attending Unavailable Marcial Camacho Attending Unavailable Demarco, Fazal Attending Unavailable Belal, Farouk Attending Unavailable [place], Lucia Primary Care Unavailable Atilio, Lucia Referring Unavailable Atilio, Lucia Attending Unavailable Veronica Conner Attending Unavailable Atilio, Lucia Primary Care Unavailable [place], Lucia Referring Unavailable Demarco, Fazal Attending Unavailable [place], Lucia Primary Care Unavailable [place], Lucia Referring Unavailable Demarco, Fazal Attending Unavailable Atilio, Lucia Primary Care Unavailable Elieser Rodriguez Attending Unavailable [place], Lucia Primary Care Unavailable [place], Lucia Referring Unavailable Jacob SYSTEM SUPPORT ANALYSTWilian Attending Unavailable [place], Lucia Primary Care Unavailable [place], Lucia Referring Unavailable Gilma Dixon NP Attending Unavailable Atilio, Lucia Primary Care Unavailable [place], Lucia Referring Unavailable [place], Lucia Primary Care Unavailable [place], Lucia Attending Unavailable Allergies Allergy Classification Reported Allergen(s) Allergy Type Date of Onset Reaction(s) Facility (1 source) Contrast media; Translations: [contrast media (perfluorocarbon -based)] Propensity to adverse reactions to drug (disorder) [facility] (16 sources) Iodinated Contrast Media; Translations: [Iodinated Contrast Media] Propensity to adverse reactions 2 Nausea [facility] (4 sources) Iodine; Translations: [IODINE] Drug Allergy 1 GI Upset [facility] Medications Current Medications Medication Drug Class(es) Dates Sig (Normalized) Sig (Original) [id number] 200 actuat albuterol 0.09 mg/actuat metered dose inhaler (2 sources) beta2-Adrenergic Agonist Start: 07-07-2024 take 2 puff(s) by inhalation four times daily as needed for wheezing, then take 2 puff(s) by inhalation four times daily as needed for wheezing Albuterol Sulfate 90 mcg/actuation HFA aerosol inhaler Active 2 NMA INHALATION .QID 6.7 July 07, 2024 12:00am Take 2 puffs 4 times a day for 7 days, then use 2 puffs 4 times a day as needed for wheezing albuterol 0.833 mg/ml / ipratropium bromide 0.167 mg/ml inhalation solution (1 source) Anticholinergic, beta2-Adrenergic Agonist Start: 07-15-2024 take 1 mL by inhalation every four to six hours as needed for wheezing Ipratropium-Albute rol 0.5 mg-3 mg(2.5 mg base)/3 mL solution for nebulization Active 3 mL INHALATION EVERY 4-6 HOURS as needed for shortness of breath or wheezing 180 July 15, 2024 12:00am aspirin 81 mg delayed release oral tablet (1 source) Platelet Aggregation Inhibitor, Nonsteroidal Anti-inflammatory Drug take 1 tablet by mouth once daily aspirin, enteric coated (ASPIRIN, ENTERIC COATED) 81 mg EC tablet Take 81 mg by mouth once daily. Active B-complex with vitamin C (VITAMIN B COMPLEX-C ORAL) (3 sources) B-complex with vitamin C (VITAMIN B COMPLEX-C ORAL) Take by mouth. Active B-complex with v itamin C (VITAMIN B COMPLEX-C ORAL) Take by mouth. 0 Active Comment on above: Take by mouth. benoxinate hydrochloride 4 mg/ml / fluorescein sodium 3 mg/ml ophthalmic solution (2 sources) Diagnostic Dye Start: 01-22-2024 End: 01-23-2024 fluorescein-benoxinat e 0.3-0.4 % 1 Drop (FLURESS) Start: 01-22-2024 End: 01-23-2024 1 Drop, BOTH EYES, DIRECT ED, Starting on Sat01/22/24 at 1430, Until Sat01/23/24 at 0229, Administer for applanation tonometry. In the event of a Fluress shortage, administer Coral-Fluor 1 drop into both eyes as directed for applanation tonometry cholecalciferol 0.125 mg oral capsule (20 sources) Vitamin D Start: 01-14-2023 take 1 capsule by mouth once daily Cholecalciferol (Vitamin D3) 125 mcg (5,000 unit) capsule Active 125 ug PO DAILY January 14, 2023 12:00am Start: 04-10-2022 End: 01-14-2023 take 1 capsule by mouth once daily Cholecalciferol (Vitamin D3) 50 mcg (2,000 unit) capsule Discontinued 50 ug PO DAILY April 10, 2022 1:00am January 14, 2023 2:21pm Start: 06-21-2020 End: 04-10-2022 take 1 capsule by mouth once daily Cholecalciferol (Vitamin D3) 125 mcg (5,000 unit) capsule Discontinued 125 ug PO DAILY June 21, 2020 12:00am April 10, 2022 9:35am Comment on above: Take 125 mcg by mout h. CPAP (3 sources) CPAP Active CPAP dexamethasone 0.001 mg/mg / neomycin 0.0035 mg/mg / polymyxin b 10 unt/mg ophthalmic ointment (1 source) Aminoglycoside Antibacterial, Polymyxin-class Antibacterial, Corticosteroid Start: 08-29-2023 End: 09-05-2023 neomycin/polymyxin b/dexametha(MAXITROL 3.5 MG/G-10,000 UNIT/G-0.1 % EYE OINTMENT) Use 1 application in both eyes two times a day for 7 days. 3.5 g 0 08/29/2023 09/05/2023 Active 2 ml dupilumab 150 mg/ml auto-injector (15 sources) Interleukin-4 Receptor alpha Antagonist Start: 07-11-2021 Dupilumab (Dupixent Pen) 300 mg/2 mL pen injector Active 300 mg SC every 2 weeks July 11, 2021 12:00am dupilumab (DUPIXENT PEN SUBCUTANEOUS) (3 sources) dupilumab (DUPIX ENT PEN SUBCUTANEOUS) Inject subcutaneously. Active dupilumab (DUPIX ENT PEN SUBCUTANEOUS) Inject subcutaneously. 0 Active Comment on above: Inject subcutaneousl y. Fluticasone-Umeclidi n-Vilanter (20 sources) Anticholinergic, Corticosteroid, beta2-Adrenergic Agonist Start: 2024 Fluticasone-Umeclidin- Vilanter (Trelegy Ellipta) 100-62.5-25 mcg blister with device Active 1 NMA INHALATION DAILY 3 2024 10:11am Start: 09-04-2023 End: 2024 Lcckgyrupbm-Hrevyjmnq-Fcqdww er (Trelegy Ellipta) 100-62.5-25 mcg blister with device Discontinued 1 NMA INHALATION DAILY September 04, 2023 8:44am 2024 10:11am Start: 12-24-2022 TRELEGY ELLIPT A 100-62.5-25 mcg inhalation powder 12/24/2022 Active Start: 09-10-2022 End: 09-04-2023 Yxyobsckyed-Ukejhtllm-Vrloex er (Trelegy Ellipta) 100-62.5-25 mcg blister with device Discontinued 1 NMA INHALATION DAILY September 10, 2022 2:40pm September 04, 2023 8:44am Start: 09-10-2022 Fluticasone-Um eclidin-Vilanter (Trelegy Ellipta) 100-62.5-25 mcg blister with device Active 1 INH INHALATION DAILY September 10, 2022 2:40pm Start: 02-27-2022 End: 09-10-2022 Xkfimfzhqbv-Pbnsgzhcu-Mbelzd er (Trelegy Ellipta) 100-62.5-25 mcg blister with device Discontinued 1 NMA INHALATION DAILY February 27, 2022 1:00am September 10, 2022 2:40pm Start: 02-27-2022 End: 09-10-2022 Jzralmrefrr-Xwrunkkcr-Tnasuu er (Trelegy Ellipta) 100-62.5-25 mcg blister with device Discontinued 1 INH INHALATION DAILY February 27, 2022 1:00am September 10, 2022 2:40pm Start: 02-27-2022 Fluticasone-Um eclidin-Vilanter (Trelegy Ellipta) 100-62.5-25 mcg blister with device Active 1 INH INHALATION DAILY February 27, 2022 12:00am 12 hr guaiFENesin 1200 mg extended release oral tablet (1 source) Start: 07-15-2024 take 1 tablet by mouth twice daily, then take 1 tablet by mouth every twelve hours Guaifenesin (Mucinex) 1,200 mg tablet extended release 12hr Active 1200 mg PO TWICE A DAY July 15, 2024 12:00am losartan potassium 100 mg oral tablet (20 sources) Angiotensin 2 Receptor Kyrie Start: 07-07-2024 take 1 tablet by mouth once daily Losartan 100 mg Tablet Active 100 mg PO DAILY July 07, 2024 12:00am Start: 12-24-2015 End: 07-07-2024 take 1 tablet by mouth once daily Losartan 50 mg tablet Discontinued 50 mg PO DAILY November 07, 2023 12:27pm November 20, 2023 8:49am nebulizer kits (1 source) Start: 07-15-2024 nebulizer kits Active 0 .ROUTE .MEDSUPPLY July 15, 2024 12:00am As directed neublizer machine (1 source) Start: 07-15-2024 neublizer mach ine Active 0 .ROUTE .MEDSUPPLY July 15, 2024 12:00am As directed phenylephrine hydrochloride 25 mg/ml ophthalmic solution (1 source) alpha-1 Adrenergic Agonist Start: 01-02-2023 End: 01-03-2023 PHENYLephrine 2.5 % 1 Drop (AK-DILATE, AMALIA-SYNEPHRINE) sodium fluoride 0.011 mg/mg toothpaste (3 sources) Start: 07-04-2024 Fluoride (Sodi um) (Sf 5000 Plus) 1.1 % cream Active NMA PO DAILY July 04, 2024 12:00am tropicamide 10 mg/ml ophthalmic solution (3 sources) Anticholinergic Start: 01-22-2024 End: 01-23-2024 tropicamide 1 % 1 Drop (MYDRIACYL) Start: 01-22-2024 End: 01-23-2024 1 Drop, BOTH EYES, DIRECT ED, Starting on Sat01/22/24 at 1430, Until Sat01/23/24 at 0229, Administer for dilation Start: 01-02-2023 End: 01-03-2023 tropicamide 1 % 1 Drop (MYDR IACYL) Vit C,K-As-Vhuxw-Lutein-Zeax an (Preservision Areds-2) 290-854-90-1 ld-gsly-wj-mg capsule (15 sources) Start: 06-21-2020 take 1 tablet by mouth once daily at mealtime Vit C,C-Wn-Txdea-Lutein-Zeaxan (Preservision Areds-2) 151-191-63-1 ol-bkbc-xd-mg capsule Active 1 TABLET PO DAILY June 21, 2020 2:17pm administer with meals Start: 06-21-2020 take 1 capsule by mo [facility] once daily at mealtime Vit C,F-Th-Dxdnz-Lutein-Zeaxan (Preservision Areds-2) 180-533-83-1 on-hhsj-ly-mg capsule Active 1 {tbl} PO DAILY June 21, 2020 12:00am administer with meals Start: 06-21-2020 take 1 tablet by debby once daily at mealtime Vit C,A-Yx-Ndgeu-Lutein-Zeaxan (Preservision Areds-2) 321-926-82-1 fo-jxjo-bm-mg capsule Active 1 TABLET PO DAILY June 20, 2020 11:00pm administer with meals Start: 06-21-2020 take 1 tablet by debby once daily at mealtime Vit C,W-Of-Yquui-Lutein-Zeaxan (Preservision Areds-2) 303-514-84-1 zq-sxqt-go-mg capsule Active 1 TABLET PO DAILY June 21, 2020 12:00am administer with meals VIT C/E/ZN/COPPR/LUTEIN/ZEAX AN (PRESERVISION AREDS 2 ORAL) (3 sources) VIT C/E/ZN/COPPR /LUTEIN/ZEAXAN (PRESERVISION AREDS 2 ORAL) Take by mouth once daily. Active VIT C/E/ZN/COPPR /LUTEIN/ZEAXAN (PRESERVISION AREDS 2 ORAL) Take by mouth once daily. 0 Active Comment on above: Take by mouth once d aily. Completed/Discontinued Medications Medication Drug Class(es) Dates Sig (Normalized) Sig (Original) clobetasol propionate 0.5 mg/ml topical cream (18 sources) Corticosteroid Start: 05-19-2019 End: 04-10-2022 Clobetasol 0.05 % cream Discontinued 1 NMA TOPICAL THREE TIMES A DAY as needed for skin irritation May 19, 2019 1:00am April 10, 2022 9:36am Clobetasol Propi sadi (TEMOVATE) 0.05 % external solution Apply to affected area twice daily. Active Comment on above: Apply to affected ar ea twice daily. diphenhydrAMINE hydrochloride 50 mg oral capsule (7 sources) Histamine-1 Receptor Antagonist Start: End: take 1 tablet by mouth every hour Diphenhydramine Hcl 50 mg capsule Discontinued 50 mg PO ONCE 1 October 16, 2022 12:00am January 14, 2023 2:22pm 50mg (1 tablet) one hour prior to CT doxycycline monohydrate 100 mg oral tablet (2 sources) Tetracycline-class Drug Start: End: take 1 tablet by mouth twice daily at mealtime Doxycycline Monohydrate 100 mg tablet Discontinued 100 mg PO TWICE A DAY July 07, 2024 12:00am August 04, 2024 10:10am Take with food etodolac 500 mg oral tablet (6 sources) Nonsteroidal Anti-inflammatory Drug Start: End: Etodolac 500 mg tablet Discontinued 500 mg PO TWICE A DAY October 16, 2023 12:00am June 27, 2024 9:02pm Take for 1 week and then only as needed, do not take with other NSAID including meloxicam. Tylenol is okay fluconazole 100 mg oral tablet (6 sources) Azole Antifungal Start: End: take 1 tablet by mouth once daily Fluconazole 100 mg tablet Discontinued 100 mg PO daily November 08, 2023 12:00am November 20, 2023 8:05am folic acid 1 mg oral tablet (18 sources) Start: End: take 1 tablet by mouth once daily Folic Acid 1 mg tablet Discontinued 1 mg PO DAILY May 19, 2019 1:00am October 11, 2021 4:15pm FOLIC ACID ORAL Take by mouth. Active FOLIC ACID ORAL Take by mouth. 0 Active Comment on above: Take by mouth. handicap placard (6 sources) Start: 11-20-2023 End: 06-27-2024 handicap placard Discontinue d 0 .ROUTE .COMPLEX 1 360 November 20, 2023 12:00am November 13, 2024 12:00am June 27, 2024 9:01pm 1 placard; Start: 11-20-[address] Active 0 .ROUTE .COMPLEX 1 360 November 20, 2023 12:00am November 13, 2024 12:00am 1 placard; meloxicam 7.5 mg oral tablet (6 sources) Nonsteroidal Anti-inflammatory Drug Start: 09-24-2023 End: 11-20-2023 take 1 tablet by mouth once daily Meloxicam 7.5 mg tablet Discontinued 7.5 mg PO DAILY September 24, 2023 12:00am November 20, 2023 8:48am methotrexate 2.5 mg/ml oral solution (18 sources) Folate Analog Metabolic Inhibitor Start: 05-19-2019 End: 10-11-2021 take 2.5 mg by mouth every week Methotrexate 2.5 mg/mL solution Discontinued 15 mg PO EVERY WEEK May 19, 2019 1:00am October 11, 2021 4:15pm 2.5mg tablets, takes 6 tablets on Saturday Start: 05-19-2019 End: 10-11-2021 take 2.5 mg by mouth every week Methotrexate Discontinued 15 MG PO EVERY WEEK May 19, 2019 1:00am October 11, 2021 4:15pm 2.5mg tablets, takes 6 tablets on Saturday Start: 02-28-2016 methotrexate 2 .5 mg tablet 02/28/2016 Active methylPREDNISolone 32 mg oral tablet (7 sources) Corticosteroid Start: 10-16-2022 End: 01-14-2023 take 1 tablet by mouth once daily, then take 1 tablet by mouth every two hours Methylprednisolone 32 mg tablet Discontinued 32 mg PO DAILY October 16, 2022 12:00am January 14, 2023 2:22pm 32mg (1 tablet) [address], and 32mg (1 tablet) again [address] nystatin [id number] unt/ml oral suspension (8 sources) Polyene Antifungal Start: 05-30-2022 End: 09-10-2022 Nystatin 100,000 unit/mL suspension Discontinued 5 mL MUCOUS MEM THREE TIMES A DAY May 30, 2022 12:00am September 10, 2022 2:16pm swish and swallow 5 cc three times per day for 10 days Start: 05-30-2022 End: 09-10-2022 Nystatin Discontinued 5 ML M UCOUS MEM THREE TIMES A DAY May 30, 2022 12:00am September 10, 2022 2:16pm swish and swallow 5 cc three times per day for 10 days predniSONE 10 mg oral tablet (7 sources) Start: 07-17-2024 End: 08-04-2024 Prednisone 10 mg tablet Discontinued 10 mg PO daily July 17, 2024 12:00am August 04, 2024 9:52am finish current prescription then begin 30 mg for 4 days, 20 mg for 4 days, 10 mg for 4 days Start: 06-30-2024 End: 08-04-2024 Prednisone 20 mg tablet Disc ontinued 40 mg PO DAILY July 07, 2024 12:00am August 04, 2024 9:52am 40 mg daily for 6 days, then 20 mg daily for 6 days, then discontinue simvastatin 40 mg oral tablet (20 sources) HMG-CoA Reductase Inhibitor Start: 06-27-2011 End: 05-19-2024 take 1 tablet by mouth once daily Simvastatin 40 mg tablet Discontinued 40 mg PO DAILY May 20, 2023 6:38pm November 20, 2023 8:49am Comment on above: Take 1 tablet by debby th daily at bedtime. tiotropium 0.018 mg inhalation powder (18 sources) Anticholinergic Start: 05-19-2019 End: 02-27-2022 take 1 capsule by inhalation once daily Tiotropium Trinity (Spiriva With Handihaler) 18 mcg capsule, w/inhalation device Discontinued 1 CAP INHALATION DAILY May 19, 2019 1:00am February 27, 2022 3:23pm puncture 1 cap using device; one dose = 2 inhalations Start: 06-27-2011 End: 02-27-2022 take 1 capsule by inhalation once daily Tiotropium Trinity (Spiriva With Handihaler) 18 mcg capsule, w/inhalation device Discontinued 1 NMA INHALATION DAILY May 19, 2019 1:00am February 27, 2022 3:23pm puncture 1 cap using device; one dose = 2 inhalations Comment on above: Inhale 1 capsule as instructed once daily. triamcinolone acetonide 1 mg/ml topical cream (8 sources) Corticosteroid Start: 04-10-2022 End: 01-14-2023 Triamcinolone Acetonide 0.1 % cream Discontinued 1 NMA TOPICAL DAILY as needed April 10, 2022 1:00am January 14, 2023 2:21pm Vit C,E,Zn,Ks-Srijr1-Gov-Zhao x (3 sources) Start: 02-27-2022 End: 04-10-2022 Vit C,E,Zn,Up-Giovt7-Tji-Ze ax Discontinued CAP PO February 27, 2022 1:00am April 10, 2022 9:36am Start: 02-27-2022 Vit C,E,Zn,Cu- Vdean3-Tnu-Vaqo Active CAP PO February 27, 2022 12:00am Vit C,E,Zn,Vh-Pmqju2-Nsc-Zhao x 250-2.5-0.5 mg capsule (6 sources) Start: 02-27-2022 End: 04-10-2022 Vit C,E,Zn,Nd-Hkzag6-Imf-Zhao x 250-2.5-0.5 mg capsule Discontinued NMA PO February 27, 2022 1:00am April 10, 2022 9:36am Problems Active Problems Problem Classification Problem Date Documented Date Episodic/Chronic Aortic; peripheral; and visceral artery aneurysms (20 sources) Aneurysm of ascending aorta; Translations: [Thoracic aortic aneurysm, without rupture] Chronic Comment on above: Incidental findings include 4.2 cm aneurysm of the ascending aorta likely from chronic hypertension or aortic stenosis. 07/11/21 Blindness and vision defects (3 sources) Low vision, both eyes ; Translations: [Unqualified visual loss, both eyes] Onset: 04-06-2016 04-06-2016 Chronic Cardiac dysrhythmias (18 sources) AV-junctional (olivia) bradycardia; Translations: [Bradycardia, unspecified] Onset: 07-17-2024 06-27-2024 Episodic Cataract (5 sources) Bilateral pseudophakia; Translations: [Presence of intraocular lens] Onset: 02-23-2014 01-02-2023 Chronic Chronic obstructive pulmonary disease and bronchiectasis (20 sources) Chronic obstructive lung disease; Translations: [Chronic obstructive pulmonary disease, unspecified] Onset: 06-27-2011 Chronic Complication of device; implant or graft (15 sources) Malfunction of cardiac pacemaker; Translations: [Breakdown (mechanical) of other cardiac electronic device, initial encounter] Onset: 07-15-2024 07-04-2024 Episodic Conduction disorders (20 sources) Right bundle branch block; Translations: [Unspecified right bundle-branch block] Onset: 07-06-2024 10-11-2021 Chronic Diseases of white blood cells (7 sources) Leukocytosis; Translations: [Elevated white blood cell count, unspecified] Onset: 07-17-2024 07-04-2024 Chronic Disorders of lipid metabolism (20 sources) Hyperlipidemia; Translations: [Hyperlipidemia, unspecified] Onset: 04-24-2010 Chronic Essential hypertension (20 sources) Essential hypertension; Translations: [Essential (primary) hypertension] Onset: 04-24-2010 Chronic Fluid and electrolyte disorders (11 sources) Dehydration; Translations: [Dehydration] Onset: 07-06-2024 06-27-2024 Episodic Inflammation; infection of eye (except that caused by tuberculosis or sexually transmitteddisease) (2 sources) Ulcerative blepharitis; 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, upper and lower eyelids] 08-29-2023 Episodic Mycoses (17 sources) Candidiasis of mouth; Translations: [Candidal stomatitis] 05-30-2022 Episodic Nutritional deficiencies (1 source) Vitamin D deficiency, unspecified; Translations: [Vitamin D deficiency, unspecified] Onset: 11-20-2023 Chronic Osteoarthritis (7 sources) Osteoarthritis of right hip joint; Translations: [Unilateral primary osteoarthritis, right hip] Onset: 11-20-2023 11-20-2023 Chronic Other eye disorders (1 source) Dry eyes; Translations: [Dry eye syndrome of bilateral lacrimal glands] 01-02-2023 Episodic Other inflammatory condition of skin (3 sources) Psoriasis; Translations: [Psoriasis, unspecified] Onset: 04-24-2010 04-24-2010 Chronic Other lower respiratory disease (14 sources) Dyspnea on exertion; Translations: [Shortness of breath] 10-11-2021 Episodic Other lower respiratory disease (9 sources) Shortness of breath; Translations: [Shortness of breath] Onset: 07-21-2024 Episodic Other lower respiratory disease (10 sources) Respiratory insufficiency; Translations: [Other abnormalities of breathing] 06-27-2024 Episodic Other lower respiratory disease (1 source) Dyspnea; Translations: [Shortness of breath] 07-15-2024 Episodic Other lower respiratory disease (1 source) Wheezing; Translations: [Wheezing] 07-15-2024 Episodic Other lower respiratory disease (1 source) Wheezing; Translations: [Wheezing] Onset: 07-15-2024 Episodic Other lower respiratory disease (1 source) Other abnormalities of breathing; Translations: [Other abnormalities of breathing] Onset: 07-06-2024 Episodic Other screening for suspected conditions (not mental disorders or infectious disease) (20 sources) Patient encounter status; Translations: [Encounter for screening for malignant neoplasm of respiratory organs] Onset: 07-06-2024 Episodic Pneumonia (except that caused by tuberculosis or sexually transmitted disease) (20 sources) Pneumonia; Translations: [Pneumonia, unspecified organism] Onset: 07-06-2024 06-27-2024 Episodic Residual codes; unclassified (20 sources) Obstructive sleep apnea syndrome; Translations: [Obstructive sleep apnea (adult) (pediatric)] 09-10-2022 Chronic Residual codes; unclassified (10 sources) Obstructive sleep apnea (adult) (pediatric); Translations: [Obstructive sleep apnea (adult)(pediatric)] Onset: 05-28-2024 Chronic Retinal detachments; defects; vascular occlusion; and retinopathy (8 sources) Nonexudative age-related macular degeneration; Translations: [Nonexudative age-related macular degeneration, unspecified eye, stage unspecified] Onset: 02-23-2014 01-02-2023 Chronic Rheumatoid arthritis and related disease (3 sources) Ankylosing spondylitis; Translations: [Ankylosing spondylitis of unspecified sites in spine] Onset: 04-24-2010 04-24-2010 Chronic Substance-related disorders (20 sources) Tobacco dependence, continuous; Translations: [Nicotine dependence, unspecified, with unspecified nicotine-induced disorders] Onset: 05-28-2024 Chronic Unclassified (2 sources) Your appointment is on 07/15/2024 at 11 AM Unclassified (2 sources) The office will contact you to schedule an appointment within the next month Unclassified (2 sources) Aneurysm of the ascending aorta, without rupture; Translations: [Aneurysm of the ascending aorta, without rupture] Onset: 05-28-2024 Past or Other Problems Problem Classification Problem Date Documented Da te Episodic/Chronic Blindness and vision defects (6 sources) Visual field defect; Translations: [Unspecified visual field defects] Onset: 03-01-2016 03-01-2016 Episodic Diabetes mellitus without complication (3 sources) Impaired fasting glycemia; Translations: [Impaired fasting glucose] Onset: 05-22-2010 05-22-2010 Episodic Other non-traumatic joint disorders (1 source) Pain in right hip; Translations: [Pain in right hip] Onset: 09-24-2023 Episodic Residual codes; unclassified (3 sources) Current drinker; Translations: [Alcohol use] Onset: 05-09-2010 05-09-2010 Episodic Residual codes; unclassified (3 sources) Tobacco user; Translations: [Tobacco use] Onset: 06-21-2010 06-21-2010 Episodic Spondylosis; intervertebral disc disorders; other back problems (1 source) Dorsalgia, unspecified; Translations: [Dorsalgia, unspecified] Onset: 10-16-2023 Episodic Results Test Name Value Interpretation Reference Range Facility Pulmonary Visit Reporton Pulmonary Visit Report Normal [facility] Chest PA and Lateralon 07-15 Chest PA and Lateral Normal [facility] Pacemaker Checkon 07-15-2024 Pacemaker Check Normal [facility] Pulmonary Visit Reporton Pulmonary Visit Report Normal [facility] Culture, Blood (WB)on 2024 CUB Blood cultures x2, from two different sites No growth in 5 days. Normal [facility] Comment on above: Performed By: #### L 503.6005, M200.1000 ####[facility] [address] [place], [place], [address] Chest PA and Lateralon 07-07 Chest PA and Lateral Normal [facility] Discharge Instructionon 06-17 Discharge Instruction Normal [facility] Discharge Instruction Normal [facility] Pacemaker Checkon 07-07-2024 Pacemaker Check Normal [facility] Absolute lymphocyte countOrd ered By: Camilla Anton on 07-06-2024 Lymphocytes Auto (Unsp spec) [#/Vol] 1.46 10*3/uL 0.83-4.51 [facility] Absolute neutrophil countOrd ered By: Camilla Anton on 07-06-2024 Neutrophils (Bld) [#/Vol] 8.2 10*3/uL High 2.0-7.7 [facility] Anion gap in Serum or Plasma Ordered By: Camillaemma Anton on 07-06-2024 Anion gap [Moles/Vol] 9 mmol/L 5-15 [facility] Automated lymphocyte count a s percentage of total leukocytesOrdered By: Camilla Gallojuany on 07-06-2024 Lymphocytes/100 WBC Auto (Unsp spec) 12.6 % Low 19-41 [facility] BUN/creatinine ratioOrdered By: Camilla Anton on 07-06-2024 Urea nitrogen/Creatinine [Mass ratio] 26.7 mg/mg High 10-20 [facility] Basic Metabolic Profile (BMP )on 07-06-2024 BUN/CRE 26.7 RATIO High 10-20 [facility] Comment on above: Performed By: #### L 500.2500 ####[facility] [address] [place], [address] Calcium [Mass/Vol] 8.1 mg/dL Normal 7.6-11.0 [facility] Comment on above: Performed By: #### L 500.2500 ####[facility] [address] [place], [address] Chloride [Moles/Vol] 113 mmol/L High 98-108 [facility] Comment on above: Performed By: #### L 500.2500 ####[facility] [address] [place], [address] CO2 [Moles/Vol] 21.2 mmol/L Normal 21.0-32.0 [facility] Comment on above: Performed By: #### L 500.2500 ####[facility] [address] [place], [address] Creatinine [Mass/Vol] 0.97 mg/dL Normal 0.70-1.20 [facility] Comment on above: Performed By: #### L 500.2500 ####[facility] [address] [place], [address] ECRCL 60.62 ml/min Normal 50-250 [facility] Comment on above: Performed By: #### L 500.2500 ####[facility] [address] [place], [address] GAP 9 Normal 5-15 [facility] Comment on above: Performed By: #### L 500.2500 ####[facility] [address] [place], [address] GFR/1.73 sq M.predicted among non-blacks MDRD (S/P/Bld) [Vol rate/Area] 80 mL/min/{1.73_m2} Normal >60 [facility] Comment on above: Result Comment: mL/m in/1.73m2 CKD-EPI Creatinine Equation (2020) Performed By: #### L 500.2500 ####[facility] [address] [place], [address] Glucose [Mass/Vol] 118 mg/dL High 70-99 [facility] Comment on above: Performed By: #### L 500.2500 ####[facility] [address] [place], [address] Potassium [Moles/Vol] 4.1 mmol/L Normal 3.3-5.1 [facility] Comment on above: Performed By: #### L 500.2500 ####[facility] [address] [place], [address] Sodium [Moles/Vol] 143 mmol/L Normal 133-145 [facility] Comment on above: Performed By: #### L 500.2500 ####[facility] [address] [place], [address] Urea nitrogen [Mass/Vol] 26 mg/dL High 4-19 [facility] Comment on above: Performed By: #### L 500.2500 ####[facility] [address] [place], [address] Basophil percentageOrdered B y: Camilla Anton on 07-06-2024 Basophils/100 WBC (Bld) 0.2 % 0-1 [facility] CBC W/Diff, Automatedon 06-17 Absolute Lymph 1.46 X10 3/uL Normal 0.83-4.51 [facility] Comment on above: Performed By: #### L 100.0100 ####[facility] [address] [place], [address] Absolute Neut 8.2 X10 3/uL High 2.0-7.7 [facility] Comment on above: Performed By: #### L 100.0100 ####[facility] [address] [place], [address] Basophils/100 WBC (Bld) 0.2 % Normal 0-1 [facility] Comment on above: Performed By: #### L 100.0100 ####[facility] [address] [place], [address] Eosinophils/100 WBC (Bld) 5.9 % High 0-5 [facility] Comment on above: Performed By: #### L 100.0100 ####[facility] [address] [place], [address] Erythrocyte distribution width (RBC) [Ratio] 13.9 % Normal 11.6-14.6 [facility] Comment on above: Performed By: #### L 100.0100 ####[facility] [address] [place], [address] Hematocrit (Bld) [Volume fraction] 37.9 % Low 40-54 [facility] Comment on above: Performed By: #### L 100.0100 ####[facility] [address] [place], [address] Hemoglobin (Bld) [Mass/Vol] 12.9 g/dL Low 13.0-16.5 [facility] Comment on above: Performed By: #### L 100.0100 ####[facility] [address] [place], [address] IG% 1.800 High 0.0-0.9 [facility] Comment on above: Result Comment: IG% - Immature Granulocytes (promyelocytes, myelocytes andmetamyelocytes) > 1% indicates that a LEFT SHIFT is Present. Performed By: #### L 100.0100 ####[facility] [address] [place], [address] Lymphocytes/100 WBC (Bld) 12.6 % Low 19-41 [facility] Comment on above: Performed By: #### L 100.0100 ####[facility] [address] [place], [address] MCH (RBC) [Entitic mass] 30.5 pg Normal 27.0-32.0 [facility] Comment on above: Performed By: #### L 100.0100 ####[facility] [address] [place], [address] MCHC (RBC) [Mass/Vol] 34.0 g/dL Normal 32-36 [facility] Comment on above: Performed By: #### L 100.0100 ####[facility] [address] [place], [address] MCV (RBC) [Entitic vol] 89.6 fL Normal 80-94 [facility] Comment on above: Performed By: #### L 100.0100 ####[facility] [address] [place], [address] Monocytes/100 WBC (Bld) 8.5 % Normal 0-10 [facility] Comment on above: Performed By: #### L 100.0100 ####[facility] [address] [place], [address] Neutrophils/100 WBC (Bld) 71.0 % High 47-70 [facility] Comment on above: Performed By: #### L 100.0100 ####[facility] [address] [place], [address] Nucleated RBC (Bld) [#/Vol] 0 10*3/uL Normal 0-5 [facility] Comment on above: Performed By: #### L 100.0100 ####[facility] [address] [place], [address] Platelet mean volume (Bld) [Entitic vol] 10.4 fL Normal 6.2-12.0 [facility] Comment on above: Performed By: #### L 100.0100 ####[facility] [address] [place], [address] Platelets (Bld) [#/Vol] 192 10*3/uL Normal 150-450 [facility] Comment on above: Performed By: #### L 100.0100 ####[facility] [address] [place], [address] RBC (Bld) [#/Vol] 4.23 10*6/uL Low 4.6-6.2 [facility] Comment on above: Performed By: #### L 100.0100 ####[facility] [address] [place], [address] RDW SD 45.1 fl High 35.1-43.9 [facility] Comment on above: Performed By: #### L 100.0100 ####[facility] [address] [place], [address] WBC (Bld) [#/Vol] 11.6 10*3/uL High 4.4-11.0 [facility] Comment on above: Performed By: #### L 100.0100 ####[facility] [address] [place], [address] CVS/PACEMAKERon 07-06-2024 CVS/PACEMAKER Normal [facility] Carbon dioxide, total [Moles /volume] in Central venous bloodOrdered By: Camilla Desean on 07-06-2024 CO2 [Moles/Vol] 21.2 mmol/L 21.0-32.0 [facility] Chloride assayOrdered By: Sabine coyle Desean on 07-06-2024 Chloride [Moles/Vol] 113 mmol/L High 98-108 [facility] Electrocardiogram reportOrde red By: Fazal Pal on 07-06-2024 EKG study [facility] Cardi[facility] Services [address] [place] [address] 12 Lead EKG 07/05/24 1002 MR#: [id number] Acct: [id number] Name: WILIAN CAMPBELL Rep #:[id number] : 1945 79 From: Fazal Pal MD Attending Dr: Dr. Hardik Briseno DO Status: ADM IN Ordering Dr: Peng Velarde MD Date: 07/05/24 Location: [facility] Sex: M C Admitted: 07/05/24 Test Reason : Blood Pressure : */* mmHG Vent. Rate : 76 BPM Atrial Rate : 76 BPM P-R Int : 114 ms QRS Dur : 152 ms QT Int : 430 ms P-R-T Axes : 56 -89 74 degrees QTcB Int : 483 ms Atrial-sensed ventricular-paced rhythm Abnormal ECG When compared with ECG of 04-Jul-2024 20:32, MANUAL COMPARISON REQUIRED DATA IS UNCONFIRMED Confirmed by DEMARCO CARLOS, FAZAL ([id number]), staff editor EMMA PLASENCIA ([id number]) on 0:39:38 AM Referred By: Marcial Camacho Confirmed By: FAZAL PAL MD 07/06/24 1039 Date _ Fazal Pal MD CC: Dr. Marcial Camacho DO; Dr. Lucia Trimble MD; Dr. Hardik Briseno DO; Dr. Peng Velarde MD ~ Signed [facility] Work Phone: EKG study [facility] Cardiovascular Services [address] [place] [address] 12 Lead EKG 07/04/242031 MR#: [id number] Acct: [id number] Name: WILIAN CAMPBELL Rep #:[id number] : 1945 79 From: Fazal Pal MD Attending Dr: Dr. Hardik Briseno DO Status: ADM IN Ordering Dr: Ananda Garner DO Date: 5 Location: [facility] Sex: M C Admitted: 07/05/24 Test Reason : Blood Pressure : */* mmHG Vent. Rate : 43 BPM Atrial Rate : 43 BPM P-R Int : * ms QRS Dur : 172 ms QT Int : 462 ms P-R-T Axes : 74 -87 57 degrees QTcB Int : 390 ms venricular non captive Abnormal ECG Confirmed by FAZAL PAL MD ([id number]), staff editor TOY LAYNE ([id number]) on 07/06/2024 8:37:53 AM Referred By: Marcial Camacho Confirmed By: FAZAL PAL MD 07/06/24 0837 Date _ Fazal Pal MD CC: Dr. Marcial Camacho, ; Dr. Lucia Trimble MD; Dr. Hardik Briseno DO; Dr. Ananda Garner DO ~ Signed [facility] Work Phone: Eosinophil percentageOrdered By: Camilla Anton on 07-06-2024 Eosinophils/100 WBC (Bld) 5.9 % High 0-5 [facility] Erythrocyte distribution wid th (RBC) [Ratio]Ordered By: Camilla Anton on 07-06-2024 Erythrocyte distribution width (RBC) [Entitic vol] 45.1 fL High 35.1-43.9 [facility] Erythrocyte distribution wid th ratioOrdered By: Camilla Anton on 07-06-2024 Erythrocyte distribution width (RBC) [Ratio] 13.9 % 11.6-14.6 [facility] Erythrocyte distribution wid th standard deviationOrdered By: Camilla Anton on 07-06-2024 Erythrocyte distribution width (RBC) [Ratio] 45.1 fl High 35.1-43.9 [facility] Estimation of creatinine haresh aranceOrdered By: Camilla Anton on 07-06-2024 Estimated Creatinine Clearance Calc 60.62 ml/min 50-250 [facility] GFR/1.73 sq M.predicted dane g non-blacks MDRD (S/P/Bld) [Vol rate/Area]Ordered By: Camilla Anton on 07-06-2024 Estimated GFR (MDRD) Non-Af Amer 80 >60 [facility] Comment on above: mL/min/1.73m2 CKD-EP I Creatinine Equation (2020) Glomerular filtration rate ( GFR) estimation/1.73 sq m using serum, plasma, or whole bOrdered By: Camilla Anton on 07-06-2024 GFR/1.73 sq M.predicted among non-blacks MDRD (S/P/Bld) [Vol rate/Area] 80 mL/min/{1.73_m2} >60 [facility] Comment on above: mL/min/1.73m2 CKD-EP I Creatinine Equation (2020) Hematocrit Auto (Bld) [Volum e fraction]Ordered By: Camilla Anton on 07-06-2024 Hematocrit (Bld) [Volume fraction] 37.9 % Low 40-54 [facility] Hemoglobin measurementOrdere d By: Camilla Anton on 07-06-2024 Hemoglobin (Bld) [Mass/Vol] 12.9 g/dL Low 13.0-16.5 [facility] Immature granulocytes/100 WB C Auto (Bld)Ordered By: Camilla Anton on 07-06-2024 Immature granulocytes/100 WBC (Bld) 1.800 % High 0.0-0.9 [facility] Comment on above: IG% - Immature Granu locytes (promyelocytes, myelocytes and metamyelocytes) > 1% indicates that a LEFT SHIFT is Present. Lymphocytes Auto (Unsp spec) [#/Vol]Ordered By: Camilla Anton on 07-06-2024 Lymphocytes (Bld) [#/Vol] 1.46 10*3/uL 0.83-4.51 [facility] Lymphocytes/100 WBC Auto (Un sp spec)Ordered By: Camilla Anton on 07-06-2024 Lymphocytes/100 WBC (Bld) 12.6 % Low 19-41 [facility] MCV (mean corpuscular volume ) determinationOrdered By: Camilla Anton on 07-06-2024 MCV (RBC) [Entitic vol] 89.6 fL 80-94 [facility] Mean corpuscular hemoglobin (MCH) determinationOrdered By: Camilla Anton on 07-06-2024 MCH (RBC) [Entitic mass] 30.5 pg 27.0-32.0 [facility] Mean corpuscular hemoglobin concentration (MCHC) determinationOrdered By: Camilla Anton on 07-06-2024 MCHC (RBC) [Mass/Vol] 34.0 g/dL 32-36 [facility] Mean platelet volume determi nationOrdered By: Camilla Anton on 07-06-2024 Platelet mean volume (Bld) [Entitic vol] 10.4 fL 6.2-12.0 [facility] Monocyte percentageOrdered B y: Camilla Anton on 07-06-2024 Monocytes/100 WBC (Bld) 8.5 % 0-10 [facility] Neutrophil percentageOrdered By: Camilla Anton on 07-06-2024 Neutrophils/100 WBC (Bld) 71.0 % High 47-70 [facility] Nucleated red blood cell per centageOrdered By: Camilla Anton on 07-06-2024 Nucleated RBC/100 WBC (Bld) [Ratio] 0 % 0-5 [facility] Platelet countOrdered By: Sabine Anton on 07-06-2024 Platelets (Bld) [#/Vol] 192 10*3/uL 150-450 [facility] Potassium (Unsp spec) [Mass/ Vol]Ordered By: Camilla Anton on 07-06-2024 Potassium [Moles/Vol] 4.1 mmol/L 3.3-5.1 [facility] Potassium measurement (mass/ volume)Ordered By: Camilla Anton on 07-06-2024 Potassium (Unsp spec) [Mass/Vol] 4.1 mmol/L 3.3-5.1 [facility] RBC Auto (Bld) [#/Vol]Ordere d By: Camilla Anton on 07-06-2024 RBC (Bld) [#/Vol] 4.23 10*6/uL Low 4.6-6.2 [facility] Serum creatinine measurement (mass/volume)Ordered By: Camilla Anton on 07-06-2024 Creatinine [Mass/Vol] 0.97 mg/dL 0.70-1.20 [facility] Serum glucose measurement (m ass/volume)Ordered By: Camilla Anton on 07-06-2024 Glucose [Mass/Vol] 118 mg/dL High 70-99 [facility] Serum or plasma calcium ruchi urement (mass/volume)Ordered By: Camilla Anton on 07-06-2024 Calcium [Mass/Vol] 8.1 mg/dL 7.6-11.0 [facility] Serum or plasma urea nitroge n measurement (mass/volume)Ordered By: Camilla Anton on 07-06-2024 Urea nitrogen [Mass/Vol] 26 mg/dL High 07-04 [facility] Sodium levelOrdered By: Camilla Anton on 07-06-2024 Sodium [Moles/Vol] 143 mmol/L 133-145 [facility] White blood cell (WBC) count Ordered By: Camilla Anton on 07-06-2024 WBC (Bld) [#/Vol] 11.6 10*3/uL High 4.4-11.0 [facility] 12 Lead EKGon 07-05-2024 12 Lead EKG Normal [facility] Basic Metabolic Profile (BMP )on 07-05-2024 BUN Normal 07-04 [facility] Comment on above: Result Comment: Johnnie tyson via OM: Ordered Performed By: #### L 500.2500 ####[facility] [address] [place], [address] BUN/CRE Normal 01-04 [facility] Comment on above: Result Comment: Johnnie tyson via OM: Ordered Performed By: #### L 500.2500 ####[facility] [address] [place], [address] Calcium Normal 7.6-11.0 [facility] Comment on above: Result Comment: Canc elled via OM: MD Ordered Performed By: #### L 500.2500 ####[facility] [address] [place], [address] CL Normal 98-108 [facility] Comment on above: Result Comment: Canc elled via OM: MD Ordered Performed By: #### L 500.2500 ####[facility] [address] [place], [address] CO2 Normal 21.0-32.0 [facility] Comment on above: Result Comment: Canc elled via OM: MD Ordered Performed By: #### L 500.2500 ####[facility] [address] [place], [address] CREAT,SERUM Normal 0.70-1.20 [facility] Comment on above: Result Comment: Canc elled via OM: MD Ordered Performed By: #### L 500.2500 ####[facility] [address] [place], [address] eGFR Normal >60 [facility] Comment on above: Result Comment: Canc elled via OM: MD Ordered Performed By: #### L 500.2500 ####[facility] [address] [place], [address] GAP Normal 5-15 [facility] Comment on above: Result Comment: Canc elled via OM: MD Ordered Performed By: #### L 500.2500 ####[facility] [address] [place], [address] GLU Normal 70-99 [facility] Comment on above: Result Comment: Canc elled via OM: MD Ordered Performed By: #### L 500.2500 ####[facility] [address] [place], [address] Potassium Normal 3.3-5.1 [facility] Comment on above: Result Comment: Canc elled via OM: MD Ordered Performed By: #### L 500.2500 ####[facility] [address] [place], [address] Basic Metabolic Profile (BMP) Normal 133-145 [facility] Comment on above: Result Comment: Johnnie tyson via OM: Ordered Performed By: #### L 500.2500 ####[facility] [address] [place], [address] BUN/CRE 35.6 RATIO High 10-20 [facility] Comment on above: Performed By: #### L 100.0500, L500.2500 ####[facility] [address] [place], [address] Calcium [Mass/Vol] 8.3 mg/dL Normal 7.6-11.0 [facility] Comment on above: Performed By: #### L 100.0500, L500.2500 ####[facility] [address] [place], [address] Chloride [Moles/Vol] 110 mmol/L High 98-108 [facility] Comment on above: Performed By: #### L 100.0500, L500.2500 ####[facility] [address] [place], [address] CO2 [Moles/Vol] 18.6 mmol/L Low 21.0-32.0 [facility] Comment on above: Performed By: #### L 100.0500, L500.2500 ####[facility] [address] [place], [address] Creatinine [Mass/Vol] 1.05 mg/dL Normal 0.70-1.20 [facility] Comment on above: Performed By: #### L 100.0500, L500.2500 ####[facility] [address] [place], [address] ECRCL 56.00 ml/min Normal 50-250 [facility] Comment on above: Performed By: #### L 100.0500, L500.2500 ####[facility] [address] [place], [address] GAP 11 Normal 5-15 [facility] Comment on above: Performed By: #### L 100.0500, L500.2500 ####[facility] [address] [place], [address] GFR/1.73 sq M.predicted among non-blacks MDRD (S/P/Bld) [Vol rate/Area] 72 mL/min/{1.73_m2} Normal >60 [facility] Comment on above: Result Comment: mL/m in/1.73m2 CKD-EPI Creatinine Equation (2020) Performed By: #### L 100.0500, L500.2500 ####[facility] [address] [place], [address] Glucose [Mass/Vol] 209 mg/dL High 70-99 [facility] Comment on above: Performed By: #### L 100.0500, L500.2500 ####[facility] [address] [place], [address] Potassium [Moles/Vol] 4.2 mmol/L Normal 3.3-5.1 [facility] Comment on above: Performed By: #### L 100.0500, L500.2500 ####[facility] [address], [address] Sodium [Moles/Vol] 140 mmol/L Normal 133-145 [facility] Comment on above: Performed By: #### L 100.0500, L500.2500 ####[facility] [address], [address] Urea nitrogen [Mass/Vol] 37 mg/dL High 4-19 [facility] Comment on above: Performed By: #### L 100.0500, L500.2500 ####[facility] [address], [address] CBC-Complete Blood Cnt No Di ffon 07-05-2024 Erythrocyte distribution width (RBC) [Ratio] 13.7 % Normal 11.6-14.6 [facility] Comment on above: Performed By: #### L 100.0500, L500.2500 ####[facility] [address] [place], [address] Hematocrit (Bld) [Volume fraction] 38.0 % Low 40-54 [facility] Comment on above: Performed By: #### L 100.0500, L500.2500 ####[facility] [address] [place], [address] Hemoglobin (Bld) [Mass/Vol] 13.2 g/dL Normal 13.0-16.5 [facility] Comment on above: Performed By: #### L 100.0500, L500.2500 ####[facility] [address] [place], [address] MCH (RBC) [Entitic mass] 30.4 pg Normal 27.0-32.0 [facility] Comment on above: Performed By: #### L 100.0500, L500.2500 ####[facility] [address] [place], [address] MCHC (RBC) [Mass/Vol] 34.7 g/dL Normal 32-36 [facility] Comment on above: Performed By: #### L 100.0500, L500.2500 ####[facility] [address] [place], [address] MCV (RBC) [Entitic vol] 87.6 fL Normal 80-94 [facility] Comment on above: Performed By: #### L 100.0500, L500.2500 ####[facility] [address] [place], [address] Platelet mean volume (Bld) [Entitic vol] 10.9 fL Normal 6.2-12.0 [facility] Comment on above: Performed By: #### L 100.0500, L500.2500 ####[facility] [address] [place], [address] Platelets (Bld) [#/Vol] 194 10*3/uL Normal 150-450 [facility] Comment on above: Performed By: #### L 100.0500, L500.2500 ####[facility] [address] [place], [address] RBC (Bld) [#/Vol] 4.34 10*6/uL Low 4.6-6.2 [facility] Comment on above: Performed By: #### L 100.0500, L500.2500 ####[facility] [address] [place], [address] RDW SD 44.3 fl High 35.1-43.9 [facility] Comment on above: Performed By: #### L 100.0500, L500.2500 ####[facility] [address] [place], [address] WBC (Bld) [#/Vol] 18.8 10*3/uL High 4.4-11.0 [facility] Comment on above: Performed By: #### L 100.0500, L500.2500 ####[facility] [address] [place], [address] Consultation - Cardiologyon 07-05-2024 Consultation - Cardiology Normal [facility] Lactic Acidon 07-05-2024 Lactate [Moles/Vol] 1.8 mmol/L Normal 0.0-2.0 [facility] Comment on above: Performed By: #### L 503.6005 ####[facility] [address] [place], [address] Lactic acid measurementOrder ed By: Ananda Garner on 07-05-2024 Lactate [Moles/Vol] 1.8 mmol/L 0.0-2.0 [facility] Urine Cultureon 07-05-2024 URC Culture exhibits no growth. Normal [facility] Comment on above: Performed By: #### M 100.2200, L400.0001 ####[facility] [address] [place], [address] 12 Lead EKGon 07-04-2024 12 Lead EKG Normal [facility] Abdomen Single View (Portabl e)on 07-04-2024 Abdomen Single View (Portable) Normal [facility] Absolute neutrophil countOrd ered By: Ananda Garner on 07-04-2024 Neutrophils (Bld) [#/Vol] 21.5 10*3/uL High 2.0-7.7 [facility] Activated partial thrombopla stin time (aPTT) in platelet poor plasma by coagulation aOrdered By: Ananda Garner on 07-04-2024 aPTT Coag (PPP) [Time] 24.2 s 24.1-36.2 [facility] Anion gap in Serum or Plasma Ordered By: Ananda Garner on 07-04-2024 Anion gap [Moles/Vol] 12 mmol/L 5-15 [facility] BUN/creatinine ratioOrdered By: Ananda Garner on 07-04-2024 Urea nitrogen/Creatinine [Mass ratio] 27.3 mg/mg High 10-20 [facility] Basic Metabolic Profile (BMP )on 07-04-2024 BUN/CRE 27.3 RATIO High -20 [facility] Comment on above: Performed By: #### L 100.0100, L300.4310, L500.2500, L300.3900 ####[facility] [address] [place], [address] Calcium [Mass/Vol] 8.7 mg/dL Normal 7.6-11.0 [facility] Comment on above: Performed By: #### L 100.0100, L300.4310, L500.2500, L300.3900 ####[facility] [address] [place], [address] Chloride [Moles/Vol] 107 mmol/L Normal 98-108 [facility] Comment on above: Performed By: #### L 100.0100, L300.4310, L500.2500, L300.3900 ####[facility] [address] [place], [address] CO2 [Moles/Vol] 21.6 mmol/L Normal 21.0-32.0 [facility] Comment on above: Performed By: #### L 100.0100, L300.4310, L500.2500, L300.3900 ####[facility] [address] [place], [address] Creatinine [Mass/Vol] 1.18 mg/dL Normal 0.70-1.20 [facility] Comment on above: Performed By: #### L 100.0100, L300.4310, L500.2500, L300.3900 ####[facility] [address] [place], [address] ECRCL 50.76 ml/min Normal 50-250 [facility] Comment on above: Performed By: #### L 100.0100, L300.4310, L500.2500, L300.3900 ####[facility] [address] [place], [address] GAP 12 Normal 5-15 [facility] Comment on above: Performed By: #### L 100.0100, L300.4310, L500.2500, L300.3900 ####[facility] [address] [place], [address] GFR/1.73 sq M.predicted among non-blacks MDRD (S/P/Bld) [Vol rate/Area] 63 mL/min/{1.73_m2} Normal >60 [facility] Comment on above: Result Comment: mL/m in/1.73m2 CKD-EPI Creatinine Equation (2020) Performed By: #### L 100.0100, L300.4310, L500.2500, L300.3900 ####[facility] [address] [place], [address] Glucose [Mass/Vol] 285 mg/dL High 70-99 [facility] Comment on above: Performed By: #### L 100.0100, L300.4310, L500.2500, L300.3900 ####[facility] [address] [place], [address] Potassium [Moles/Vol] 4.5 mmol/L Normal 3.3-5.1 [facility] Comment on above: Performed By: #### L 100.0100, L300.4310, L500.2500, L300.3900 ####[facility] [address] [place], [address] Sodium [Moles/Vol] 141 mmol/L Normal 133-145 [facility] Comment on above: Performed By: #### L 100.0100, L300.4310, L500.2500, L300.3900 ####[facility] [address] [place], [address] Urea nitrogen [Mass/Vol] 32 mg/dL High 4-19 [facility] Comment on above: Performed By: #### L 100.0100, L300.4310, L500.2500, L300.3900 ####[facility] [address] [place], [address] Basophil percentageOrdered B y: Ananda Garner on 07-04-2024 Basophils/100 WBC (Bld) 0.1 % 0-1 [facility] Bilirubin Test strip Ql (U)O rdered By: Ananda Garner on 07-04-2024 Bilirubin Ql (U) Negative Negative [facility] Bilirubin directOrdered By: Ananda Garner on 07-04-2024 Bilirubin.direct [Mass/Vol] 0.54 mg/dL High 0.00-0.30 [facility] Bilirubin, totalOrdered By: Ananda Garner on 07-04-2024 Bilirubin [Mass/Vol] 1.18 mg/dL 0.00-1.30 [facility] Blood cultureOrdered By: Frank Garner on 07-04-2024 Bacteria identified Cx Nom (Bld) No growth in 5 days. [facility] Bacteria identified Cx Nom (Bld) No growth in 5 days. [facility] Blood manual differential co mment interpretation (narrative result)Ordered By: Ananda Garner on 07-04-2024 Manual differential comment Donta (Bld) [Interp] SCANNED [facility] Comment on above: NEUTROPHILIA NOTED CBC W/Diff, Automatedon 06-16 SMEAR COMMENT SCANNED Normal [facility] Comment on above: Result Comment: NEUT ROPHILIA NOTED Performed By: #### L 100.0100, L300.4310, L500.2500, L300.3900 ####[facility] [address] [place], [place], [id number] Carbon dioxide, total [Moles /volume] in Central venous bloodOrdered By: Ananda Garner on 07-04-2024 CO2 [Moles/Vol] 21.6 mmol/L 21.0-32.0 [facility] Chest 1 View (Portable)on Chest 1 View (Portable) Normal [facility] Chloride assayOrdered By: Ranjit Garner on 07-04-2024 Chloride [Moles/Vol] 107 mmol/L 98-108 [facility] Emergency Department Summary on 07-04-2024 Emergency Department Summary Normal [facility] Eosinophil percentageOrdered By: Ananda Garner on 07-04-2024 Eosinophils/100 WBC (Bld) 0.0 % 0-5 [facility] Epithelial cells.squamous LM Ql (Urine sed)Ordered By: Ananda Garner on 07-04-2024 Epithelial cells.squamous LM.HPF (Urine sed) [#/Area] 0 /[HPF] 0-5 [facility] Erythrocyte distribution wid th (RBC) [Ratio]Ordered By: Ananda Garner on 07-04-2024 Erythrocyte distribution width (RBC) [Entitic vol] 44.0 fL High 35.1-43.9 [facility] Erythrocyte distribution wid th ratioOrdered By: Ananda Garner on 07-04-2024 Erythrocyte distribution width (RBC) [Ratio] 13.6 % 11.6-14.6 [facility] Estimation of creatinine haresh aranceOrdered By: Ananda Garner on 07-04-2024 Estimated Creatinine Clearance Calc 50.76 ml/min 50-250 [facility] GFR/1.73 sq M.predicted dane g non-blacks MDRD (S/P/Bld) [Vol rate/Area]Ordered By: Ananda Garner on 07-04-2024 Estimated GFR (MDRD) Non-Af Amer 63 >60 [facility] Comment on above: mL/min/1.73m2 CKD-EP I Creatinine Equation (2020) Glucose Ql (U)Ordered By: Ranjit Garner on 07-04-2024 Urine Glucose (UA) Normal mg/dl Normal [facility] H AND P Exam - Hospitaliston 07-04-2024 H&P Exam - Hospitalist Normal [facility] Hematocrit Auto (Bld) [Volum e fraction]Ordered By: Ananda Garner on 07-04-2024 Hematocrit (Bld) [Volume fraction] 43.9 % 40-54 [facility] Hemoglobin measurementOrdere d By: Ananda Garner on 07-04-2024 Hemoglobin (Bld) [Mass/Vol] 15.0 g/dL 13.0-16.5 [facility] Immature granulocytes/100 WB C Auto (Bld)Ordered By: Ananda Garner on 07-04-2024 Immature granulocytes/100 WBC (Bld) 0.800 % 0.0-0.9 [facility] Comment on above: IG% - Immature Granu locytes (promyelocytes, myelocytes and metamyelocytes) > 1% indicates that a LEFT SHIFT is Present. International normalized rat io (INR) calculationOrdered By: Ananda Garner on 07-04-2024 INR Coag (Bld) [Relative time] 1.0 {INR} [facility] Ketones Test strip Ql (U)Ord ered By: Ananda Garner on 07-04-2024 Ketones Ql (U) Negative Negative [facility] Laboratory - Chemistry and C hemistry - challengeOrdered By: Ananda Garner on 07-04-2024 AST [Catalytic activity/Vol] 20 U/L <38 [facility] Lactic Acidon 07-04-2024 Lactate [Moles/Vol] 2.7 mmol/L Invalid Interpretation Code 0.0-2.0 [facility] Comment on above: Order Comment: Y Result Comment: Crit ical Result(s) Called at:2216 by:??HOLLY GUZMAN Results read back by same. Performed By: #### L 503.6005, M200.1000 ####[facility] [address] [place], [address] Lactic acid measurementOrder ed By: Ananda Garner on 07-04-2024 Lactate [Moles/Vol] 2.7 mmol/L High 0.0-2.0 [facility] Comment on above: Critical Result(s) C alled at:2216 by: HOLLY MORA Results read back by same. Liver Profileon 07-04-2024 Albumin [Mass/Vol] 3.7 g/dL Normal 3.4-4.8 [facility] Comment on above: Performed By: #### L 500.3400 ####[facility] [address] [place], [address] ALK PHOS 76 U/L Normal 40-129 [facility] Comment on above: Performed By: #### L 500.3400 ####[facility] [address] [place], [address] ALT [Catalytic activity/Vol] 69 U/L High <=46 [facility] Comment on above: Performed By: #### L 500.3400 ####[facility] [address] [place], [address] AST [Catalytic activity/Vol] 20 U/L Normal <=37 [facility] Comment on above: Performed By: #### L 500.3400 ####[facility] [address] [place], [address] Bilirubin [Mass/Vol] 1.18 mg/dL Normal 0.00-1.30 [facility] Comment on above: Performed By: #### L 500.3400 ####[facility] [address] [place], [address] Bilirubin.direct [Mass/Vol] 0.54 mg/dL High 0.00-0.30 [facility] Comment on above: Performed By: #### L 500.3400 ####[facility] [address] [place], [address] Globulin (S) [Mass/Vol] 1.8 g/dL Low 2.2-4.2 [facility] Comment on above: Performed By: #### L 500.3400 ####[facility] [address] [place], [address] T PROT 5.4 g/dL Low 5.9-8.4 [facility] Comment on above: Performed By: #### L 500.3400 ####[facility] [address] [place], [address] Lymphocytes Auto (Unsp spec) [#/Vol]Ordered By: Ananda Garner on 07-04-2024 Lymphocytes (Bld) [#/Vol] 0.69 10*3/uL Low 0.83-4.51 [facility] Lymphocytes/100 WBC Auto (Un sp spec)Ordered By: Ananda Garner on 07-04-2024 Lymphocytes/100 WBC (Bld) 2.9 % Low 19-41 [facility] MCV (mean corpuscular volume ) determinationOrdered By: Ananda Garner on 07-04-2024 MCV (RBC) [Entitic vol] 88.3 fL 80-94 [facility] Manual differential comment Donta (Bld) [Interp]Ordered By: Ananda Garner on 07-04-2024 Differential Comment SCANNED [facility] Comment on above: NEUTROPHILIA NOTED Mean corpuscular hemoglobin (MCH) determinationOrdered By: Ananda Garner on 07-04-2024 MCH (RBC) [Entitic mass] 30.2 pg 27.0-32.0 [facility] Mean corpuscular hemoglobin concentration (MCHC) determinationOrdered By: Ananda Garner on 07-04-2024 MCHC (RBC) [Mass/Vol] 34.2 g/dL 32-36 [facility] Mean platelet volume determi nationOrdered By: Ananda Garner on 07-04-2024 Platelet mean volume (Bld) [Entitic vol] 10.7 fL 6.2-12.0 [facility] Microscopic analysis of urin e for red blood cells (RBC)Ordered By: Ananda Garner on 07-04-2024 Microscopic analysis of urine for red blood cells (RBC) 0 SEEN /hpf 0-5 [facility] Urine RBC 0 SEEN /hpf 0-5 [facility] Monocyte percentageOrdered B y: Ananda Garner on 07-04-2024 Monocytes/100 WBC (Bld) 4.5 % 0-10 [facility] Mucus LM Ql (Urine sed)Order ed By: Ananda Garner on 07-04-2024 Mucus Ql (Urine sed) 0 SEEN /hpf [facility] Neutrophil percentageOrdered By: Ananda Garner on 07-04-2024 Neutrophils/100 WBC (Bld) 91.7 % High 47-70 [facility] Nitrite Test strip Ql (U)Ord ered By: Ananda Garner on 07-04-2024 Nitrite Ql (U) Negative Negative [facility] Nucleated red blood cell per centageOrdered By: Ananda Garner on 07-04-2024 Nucleated RBC/100 WBC (Bld) [Ratio] 0 % 0-5 [facility] Partial Thromboplast Timeon 07-04-2024 aPTT Coag (Bld) [Time] 24.2 s Normal 24.1-36.2 [facility] Comment on above: Performed By: #### L 100.0100, L300.4310, L500.2500, L300.3900 ####[facility] [address] [place], [address] Platelet countOrdered By: Ranjit Garner on 07-04-2024 Platelets (Bld) [#/Vol] 238 10*3/uL 150-450 [facility] Potassium (Unsp spec) [Mass/ Vol]Ordered By: Ananda Garner on 07-04-2024 Potassium [Moles/Vol] 4.5 mmol/L 3.3-5.1 [facility] Protein Test strip Ql (U)Ord ered By: Ananda Garner on 07-04-2024 Protein Ql (U) 100 mg/dl High Negative [facility] Prothrombin Time w/INRon INR Coag (PPP) [Relative time] 1.0 {INR} Normal [facility] Comment on above: Performed By: #### L 100.0100, L300.4310, L500.2500, L300.3900 ####[facility] [address] [place], [address] PT Coag (PPP) [Time] 13.4 s Normal 11.7-14.9 [facility] Comment on above: Performed By: #### L 100.0100, L300.4310, L500.2500, L300.3900 ####[facility] [address] [place], [address] Prothrombin timeOrdered By: Ananda Garner on 07-04-2024 PT Coag (PPP) [Time] 13.4 s 11.7-14.9 [facility] RBC Auto (Bld) [#/Vol]Ordere d By: Ananda Garner on 07-04-2024 RBC (Bld) [#/Vol] 4.97 10*6/uL 4.6-6.2 [facility] Serum creatinine measurement (mass/volume)Ordered By: Ananda Garner on 07-04-2024 Creatinine [Mass/Vol] 1.18 mg/dL 0.70-1.20 [facility] Serum globulin measurementOr dered By: Ananda Garner on 07-04-2024 Globulin (S) [Mass/Vol] 1.8 g/dL Low 2.2-4.2 [facility] Serum glucose measurement (m ass/volume)Ordered By: Ananda Garner on 07-04-2024 Glucose [Mass/Vol] 285 mg/dL High 70-99 [facility] Serum or plasma alanine burns otransferase (ALT) measurementOrdered By: Ananda Garner on 07-04-2024 ALT [Catalytic activity/Vol] 69 U/L High <47 [facility] Serum or plasma albumin ruchi urement (mass/volume)Ordered By: Ananda Garner on 07-04-2024 Albumin [Mass/Vol] 3.7 g/dL 3.4-4.8 [facility] Serum or plasma alkaline mahesh sphatase measurementOrdered By: Ananda Garner on 07-04-2024 ALP [Catalytic activity/Vol] 76 U/L 40-129 [facility] Serum or plasma calcium ruchi urement (mass/volume)Ordered By: Ananda Garner on 07-04-2024 Calcium [Mass/Vol] 8.7 mg/dL 7.6-11.0 [facility] Serum or plasma urea nitroge n measurement (mass/volume)Ordered By: Ananda Garner on 07-04-2024 Urea nitrogen [Mass/Vol] 32 mg/dL High 4-19 [facility] Sodium levelOrdered By: Ananda Garner on 07-04-2024 Sodium [Moles/Vol] 141 mmol/L 133-145 [facility] Squamous epithelial cells de tection in urine sediment by light microscopyOrdered By: Ananda Garner on 07-04-2024 Epithelial cells.squamous LM Ql (Urine sed) 0-5 SEEN /hpf 0-5 [facility] Total proteinOrdered By: Frank Garner on 07-04-2024 Protein [Mass/Vol] 5.4 g/dL Low 5.9-8.4 [facility] Urinalysis, Completeon 07-04 EPI,SQUAMOUS 0-5 SEEN Normal 0-5 [facility] Comment on above: Order Comment: CLEAN CATCH Performed By: #### M 100.2200, L400.0001 ####[facility] [address] [place], [address] WBC 0-5 SEEN Normal 0-5 [facility] Comment on above: Order Comment: CLEAN CATCH Performed By: #### M 100.2200, L400.0001 ####[facility] [address] [place], [address] BACTERIA 0 SEEN Normal None Seen [facility] Comment on above: Order Comment: CLEAN CATCH Performed By: #### M 100.2200, L400.0001 ####[facility] [address] [place], [address] Mucus Ql (Urine sed) 0 SEEN Normal [facility] Comment on above: Order Comment: CLEAN CATCH Performed By: #### M 100.2200, L400.0001 ####[facility] [address] [place], [address] RBC 0 SEEN Normal 0-5 [facility] Comment on above: Order Comment: CLEAN CATCH Performed By: #### M 100.2200, L400.0001 ####[facility] [address] [place], [address] Urine blood detectionOrdered By: Ananda Garner on 07-04-2024 Urine Occult Blood 10 /ul High Negative [facility] Urine clarityOrdered By: Frank Garner on 07-04-2024 Clarity (U) Clear Clear [facility] Urine color determinationOrd ered By: Ananda Garner on 07-04-2024 Color (U) Yellow Yellow [facility] Urine cultureOrdered By: Frank Garner on 07-04-2024 Bacteria identified Cx Nom (U) Culture exhibits no growth. [facility] Urine glucose detectionOrder ed By: Ananda Garner on 07-04-2024 Glucose Ql (U) Normal mg/dl Normal [facility] Urine leukocyte esterase det ection by dipstickOrdered By: Ananda Garner on 07-04-2024 Leukocyte esterase Test strip Ql (U) 25 /ul High Negative [facility] Urine pHOrdered By: Ananda Garner on 07-04-2024 pH (U) 5.0 [pH] 5.0 - 8.0 [facility] Urine sediment bacteria coun t by microscopy (number/high power field)Ordered By: Ananda Garner on 07-04-2024 Bacteria LM.HPF (Urine sed) [#/Area] 0 /[HPF] None Seen [facility] Urine specific gravity measu rementOrdered By: Ananda Garner on 07-04-2024 Specific gravity (U) [Rel density] 1.020 1.002-1.030 [facility] Urine urobilinogen measureme ntOrdered By: Ananda Patsy on 07-04-2024 Urobilinogen Ql (U) Normal mg/dl Normal [facility] Urobilinogen Ql (U)Ordered B y: Ananda Patsy on 07-04-2024 Urine Urobilinogen Normal mg/dl Normal [facility] White blood cell (WBC) count Ordered By: Ananda Garner on 07-04-2024 WBC (Bld) [#/Vol] 23.4 10*3/uL High 4.4-11.0 [facility] White blood cell countOrdere d By: Ananda Garner on 07-04-2024 Urine WBC 0-5 SEEN /hpf 0-5 [facility] White blood cell count 0-5 SEEN /hpf 0-5 [facility] aPTT Coag (PPP) [Time]Ordere d By: Ananda Garner on 07-04-2024 aPTT Coag (Bld) [Time] 24.2 s 24.1-36.2 [facility] Anion gap in Serum or Plasma Ordered By: Alberto Gupta on 06-30-2024 Anion gap [Moles/Vol] 14 mmol/L 07-30 [facility] BUN/creatinine ratioOrdered By: Alberto Gupta on 06-30-2024 Urea nitrogen/Creatinine [Mass ratio] 43.8 mg/mg High - [facility] Basic Metabolic Profile (BMP )on 06-30-2024 BUN/CRE 43.8 RATIO High 01-04 [facility] Comment on above: Performed By: #### L 500.2500 ####[facility] [address] [place], [place], [id number] Calcium [Mass/Vol] 9.2 mg/dL Normal 7.6-11.0 [facility] Comment on above: Performed By: #### L 500.2500 ####[facility] [address] [place], [address] Chloride [Moles/Vol] 111 mmol/L High 98-108 [facility] Comment on above: Performed By: #### L 500.2500 ####[facility] [address] [place], [address] CO2 [Moles/Vol] 16.6 mmol/L Low 21.0-32.0 [facility] Comment on above: Performed By: #### L 500.2500 ####[facility] [address] [place], [address] Creatinine [Mass/Vol] 1.28 mg/dL High 0.70-1.20 [facility] Comment on above: Performed By: #### L 500.2500 ####[facility] [address] [place], [address] ECRCL 46.80 ml/min Low 50-250 [facility] Comment on above: Performed By: #### L 500.2500 ####[facility] [address] [place], [address] GAP 14 Normal 5-15 [facility] Comment on above: Performed By: #### L 500.2500 ####[facility] [address] [place], [address] GFR/1.73 sq M.predicted among non-blacks MDRD (S/P/Bld) [Vol rate/Area] 57 mL/min/{1.73_m2} Low >60 [facility] Comment on above: Result Comment: mL/m in/1.73m2 CKD-EPI Creatinine Equation (2020) Performed By: #### L 500.2500 ####[facility] [address] [place], [address] Glucose [Mass/Vol] 190 mg/dL High 70-99 [facility] Comment on above: Performed By: #### L 500.2500 ####[facility] [address] [place], [address] Potassium [Moles/Vol] 4.8 mmol/L Normal 3.3-5.1 [facility] Comment on above: Performed By: #### L 500.2500 ####[facility] [address] [place], [place], [phone] Sodium [Moles/Vol] 141 mmol/L Normal 133-145 [facility] Comment on above: Performed By: #### L 500.2500 ####[facility] [address] [place], [place], [id number] Urea nitrogen [Mass/Vol] 56 mg/dL High 4-19 [facility] Comment on above: Performed By: #### L 500.2500 ####[facility] [address] [place], [place], [id number] Carbon dioxide, total [Moles /volume] in Central venous bloodOrdered By: Alberto Gupta on 06-30-2024 CO2 [Moles/Vol] 16.6 mmol/L Low 21.0-32.0 [facility] Chest Insp/Exp 2 Viewon 06-16 Chest Insp/Exp 2 View Normal [facility] Chloride assayOrdered By: Radha Gupta on 06-30-2024 Chloride [Moles/Vol] 111 mmol/L High 98-108 [facility] Discharge Instructionon 06-16 Discharge Instruction Normal [facility] Discharge Instruction Normal [facility] Estimation of creatinine haresh aranceOrdered By: Alberto Gupta on 06-30-2024 Estimated Creatinine Clearance Calc 46.80 ml/min Low 50-250 [facility] GFR/1.73 sq M.predicted dane g non-blacks MDRD (S/P/Bld) [Vol rate/Area]Ordered By: Alberto Gupta on 06-30-2024 Estimated GFR (MDRD) Non-Af Amer 57 Low >60 [facility] Comment on above: mL/min/1.73m2 CKD-EP I Creatinine Equation (2020) Glomerular filtration rate ( GFR) estimation/1.73 sq m using serum, plasma, or whole bOrdered By: Alberto Gupta on 06-30-2024 GFR/1.73 sq M.predicted among non-blacks MDRD (S/P/Bld) [Vol rate/Area] 57 mL/min/{1.73_m2} Low >60 [facility] Comment on above: mL/min/1.73m2 CKD-EP I Creatinine Equation (2020) Pacemaker Checkon 06-30-2024 Pacemaker Check Normal [facility] Potassium (Unsp spec) [Mass/ Vol]Ordered By: Alberto Gupta on 06-30-2024 Potassium [Moles/Vol] 4.8 mmol/L 3.3-5.1 [facility] Potassium measurement (mass/ volume)Ordered By: Alberto Gupta on 06-30-2024 Potassium (Unsp spec) [Mass/Vol] 4.8 mmol/L 3.3-5.1 [facility] Serum creatinine measurement (mass/volume)Ordered By: Alberto Gupta on 06-30-2024 Creatinine [Mass/Vol] 1.28 mg/dL High 0.70-1.20 [facility] Serum glucose measurement (m ass/volume)Ordered By: Alberto Gupta on 06-30-2024 Glucose [Mass/Vol] 190 mg/dL High 70-99 [facility] Serum or plasma calcium ruchi urement (mass/volume)Ordered By: Alberto Gupta on 06-30-2024 Calcium [Mass/Vol] 9.2 mg/dL 7.6-11.0 [facility] Serum or plasma urea nitroge n measurement (mass/volume)Ordered By: Alberto Gupta on 06-30-2024 Urea nitrogen [Mass/Vol] 56 mg/dL High 4-19 [facility] Sodium levelOrdered By: Al Gupta on 06-30-2024 Sodium [Moles/Vol] 141 mmol/L 133-145 [facility] Echocardiogram study reportO rdered By: Fazal Pal on 06-29-2024 Study report [facility] Cardi[facility] [address] [place] [address] Echo Complete 06/29/2407 MR#: [id number] Acct: [id number] Name: WILIAN CAMPBELL Rep #:[id number] : 1945 79 From: Fazal Croft Attending Dr: Dr. Alberto Gupta MD Status: ADM IN Ordering Dr: Janes Jose DO Date: 06/27/24 Location: [facility] Sex: M C Admitted: 06/27/24 Reason For Study Reason For Study: Complete heart block Procedure This was a 2D Doppler, Color Flow transthoracic echocardiogram. Exam performed portable in patient room. Left Ventricle Normal LV size. The left ventricular ejection fraction is 60 %. No regional wallmotion abnormalities noted. Right Ventricle Normal RV size. Normal systolic function. Atria Normal left atrium. Normal right atrium. Mitral Valve Mild focal mitral valve calcification of the anterior leaflet. Mild (1+) eccentric mitral valve insufficiency. Tricuspid Valve Normal tricuspid valve. Aortic Valve Moderate focal aortic valve calcification. Mild aortic stenosis. Pulmonic Valve Normal pulmonic valve. Great Vessels Moderately dilated aortic root. The pulmonary artery is normal size. Normal inferior vena cava. Pericardium/Pleural No pericardial effusion. MMode/2D Measurements & Calculations LVIDd: 4.3 cm IVSd: 1.2 cm LVOT diam: 2.0 cm LVIDs: 2.4 cm LVPWd: 1.1 cm LVOT area: 3.2 cm2 RVDd: 3.7 cm FS: 42.6 % ____ Ao root diam: 4.8 cm LA dimension(2D): 4.2 cm Doppler Measurements & Calculations MV E max prosper: 81.8 cm/sec Ao V2 max: 233.6 cm/sec LV V1 max: 143.8 cm/sec MV A max prosper: 90.0 cm/sec Ao max P.9 mmHg LV V1 max P.3 mmHg MV E/A: 0.91 Ao V2 mean: 139.2 cm/sec LV V1 mean P.0 mmHg Ao mean P.1 mmHg LV V1 mean: 93.5 cm/sec Ao V2 VTI: 57.8 cm LV V1 VTI: 38.0 cm AV (velocity ratio): 0.66 BILL(I,D): 2.1 cm2 BILL(V,D): 2.0 cm2 ____ SV(LVOT): 122.7 ml PA V2 max: 93.2 cm/sec ECHO/Echo Complete Interpretation Summary Normal LV size. The left ventricular ejection fraction is 60 %. Moderate focal aortic valve calcification. Mild aortic stenosis. Moderately dilated aortic root. __ Ordering Physician: Janes Jose Referring Physician: Lucia Trimble Performed By: Emery Liriano RCS 06/29/24 125 Date _ Fazal Pal MD CC: Dr. Lucia Trimble MD; Dr. Janes Jose DO; Dr. Alberto Gupta MD ~ Date Dictated: 04/14/25 0907 Date Transcribed: 06/29/24 1255 Wagon Driller: Signed [facility] Work Phone: Electrocardiogram reportOrde red By: Peng Velarde on 06-29-2024 EKG study [facility] Cardiovascular Services [address] [place] [address] 12 Lead EKG 06/27/24 2312 MR#: [id number] Acct: [id number] Name: WILIAN CAMPBELL Rep #:[id number] : 1945 79 From: Peng maria MD Attending Dr: Dr. Alberto Gupta MD Status: ADM IN Ordering Dr: Valente Beckford MD Date: 03/11 Location: [facility] Sex: M C Admitted: 06/27/24 Test Reason : 3RD DEG BLOCK Blood Pressure : */* mmHG Vent. Rate : 43 BPM Atrial Rate : 49 BPM P-R Int : * ms QRS Dur : 118 ms QT Int : 490 ms P-R-T Axes : 76 -67 -14 degrees QTcB Int : 414 ms Critical Test Result: AV Block Sinus bradycardia with A-V dissociation and Junctional bradycardia Left axis deviation Incomplete right bundle branch block Abnormal ECG When compared with ECG of 27-Jun-2024 19:20, MANUAL COMPARISON REQUIRED DATA IS UNCONFIRMED Confirmed by Peng Velarde ([id number]), staff editor EMMA PLASENCIA ([id number]) on 51:21:45 PM Referred By: DR Jose Confirmed By: Peng Velarde 06/29/24 1321 Date _ Peng Velarde MD CC: Dr. Lucia Trimble MD; Dr. Valente Beckford MD; Dr. Alberto Gupta MD ~ Signed [facility] Other EKG study [facility] Cardiovascular Services [address] [place] [address] 12 Lead EKG 06/28/24 0846 MR#: [id number] Acct: [id number] Name: WILIAN CAMPBELL Rep #:[id number] : 1945 79 From: Peng maria MD Attending Dr: Dr. Alberto Gupta MD Status: ADM IN Ordering Dr: Janes Jose DO Date: 06/27/24 Location: [facility] Sex: M C Admitted: 06/27/24 Test Reason : Blood Pressure : */* mmHG Vent. Rate : 39 BPM Atrial Rate : 38 BPM P-R Int : * ms QRS Dur : 138 ms QT Int : 552 ms P-R-T Axes : 54 -67 -46 degrees QTcB Int : 444 ms Critical Test Result: Low HR , Arrhythmia , AV Block Marked sinus bradycardia with A-V dissociation and Idioventricular rhythm Right bundle branch block Left anterior fascicular block Bifascicular block Abnormal ECG When compared with ECG of 27-Jun-2024 23:12, MANUAL COMPARISON REQUIRED DATA IS UNCONFIRMED Confirmed by Peng Velarde ([id number]), staff editor EMMA PLASENCIA ([id number]) on 51:20:24 PM Referred By: Confirmed By: Peng Velarde 06/29/24 1320 Date _ Peng Velarde MD CC: Dr. Lucia Trimble MD; Dr. Janes Jose DO; Dr. Alberto Gupta MD ~ Signed [facility] Other Pacemaker reportOrdered By: Fazal Pal on 06-29-2024 Study report [facility] Imaging Services [address] [place] [id number] TXT:Device Implant / Explant MR#: [id number] Acct: [id number] Name: WILIAN CAMPBELL Rep #:[id number] : 1945 79 From: Fazal Pal MD PCP: Dr. Lucia Trimble MD Status:ADM IN Patient: WILIAN CAMPBELL Study Date: 06/29/2024 Performing: Fazal Pal MD : 1945 Age: 79 Gender: male PROCEDURES PERFORMED LP04-(46360)INITIAL PACER INSERT+DUAL LEADS INDICATIONS Atrial fibrillation and complete heart block PROCEDURE DETAILS The patient was brought to the Catheterization Lab in the postabsorptive nonsedated state. Informed consent was obtained prior to the procedure. Local anesthetic was given subcutaneously to the left subclavian region with Lidocaine 2%. Access was achieved and a guidewire was advanced into the left subclavian vein. Incision was made to the left subclavicular area. A peel-away sheath was inserted into the left subclavian vein. PPM ventricular lead was inserted / positioned to right ventricular apex. PPM atrial lead was inserted / positioned to the right atrial appendage. The Atrial lead sutured in place with 2-0 Silk. The Ventricular PM lead sutured in place with 2-0 Silk. PPM generator was attached to the lead(s) and inserted into the pocket. Device pocket was irrigated with antibiotic. Subcutaneous closure was completed with 3-0 Vicryl. Skin closure was completed with 4-0 Vicryl. The patient tolerated the procedure well. Estimated Blood Loss: 10 ml's IMPLANTED / EX-PLANTED DEVICES IMPLANTED DEVICE(S): PPM Ventricular lead - On Call Pharmacy Technician: [employer], Model # INGEVITY , Serial # [id number] PPM Atrial lead - On Call Pharmacy Technician: [employer], Model # INGEVITY , Serial # [id number] PPM Generator - On Call Pharmacy Technician: [employer], Model # [employer] MRI DR L111 , Serial # [id number] DEVICE PARAMETERS ATRIAL LEAD PARAMETERS: P wave- 0.5 (mV) Current- 1.4 (mA) threshold- 0.7 @0.4MS (V) impedence- 518 (OHMS) VENTRICULAR LEAD PARAMETERS: R wave- (mV) Current- 1.3 (mA) threshold- 1.0 @0.4ms (V) impedence- 769 (OHMS) 10V test, no diaphragmatic capture DEVICE PARAMETERS: Mode- DDD Lower rate- 60 Upper rate- 130 CONCLUSIONS / RECOMMENDATIONS Device Conclusions: Successful implantation of a dual chamber pacemaker Device Recommendations: Follow up with Primary Care Physician PROCEDURE MEDICATIONS Versed 1 mg IV Fentanyl 50 mcg IV Fentanyl 25 mcg IV Oxygen: 2 L/min via nasal cannula Antibiotic given in appropriate timeframe. Benadryl 50 mg IV 06/29/2024 12:59:04 Ancef 2 Gm IV @ 06/29/2024 13:05:56 Solu-medrol 125 mg IV 06/29/2024 12:58:56 Signed By Fazal Pal MD On 06/29/2024 14:14:01 Fazal Pal MD 06/29/24 1414 Date _ Fazal Knutsonigner Signature: Date __ (if indicated) CC: Dr. Lucia Trimble MD; Dr. Fazal Pal MD; Dr. Alberto Gupta MD ~ Date Dictated: 06/29/24 1314 Date Transcribed: 06/29/24 1414 Wagon Driller: [place] Signed [facility] Work Phone: TXT:Device Implant / Explant on 06-29-2024 TXT:Device Implant / Explant Normal [facility] 12 Lead EKGon 06-28-2024 12 Lead EKG Normal [facility] Absolute lymphocyte countOrd ered By: Janes Mayfield on 06-28-2024 Lymphocytes Auto (Unsp spec) [#/Vol] 0.35 10*3/uL Low 0.83-4.51 [facility] Absolute neutrophil countOrd ered By: Janes Mayfield on 06-28-2024 Neutrophils (Bld) [#/Vol] 3.7 10*3/uL 2.0-7.7 [facility] Amorphous sediment detection in urine sediment by light microscopyOrdered By: Janes Mayfield on 06-28-2024 Amorphous sediment LM Ql (Urine sed) 1+ URATE [facility] Automated lymphocyte count a s percentage of total leukocytesOrdered By: Janes Mayfield on 06-28-2024 Lymphocytes/100 WBC Auto (Unsp spec) 8.6 % Low 19-41 [facility] Base excess Calc (BldV) [Mol es/Vol]Ordered By: April Napoles on 06-28-2024 Venous Blood Base Excess -9 mmol/L Low -1.0-3.5 [facility] Basophil percentageOrdered B y: Janes Mayfield on 06-28-2024 Basophils/100 WBC (Bld) 0.0 % 0-1 [facility] Bilirubin Test strip Ql (U)O rdered By: Janes Mayfield on 06-28-2024 Bilirubin Ql (U) Negative Negative [facility] Bilirubin, totalOrdered By: Janes Mayfield on 06-28-2024 Bilirubin [Mass/Vol] 0.58 mg/dL 0.00-1.30 [facility] CBC W/Diff, Automatedon 06-16 Absolute Lymph 0.35 X10 3/uL Low 0.83-4.51 [facility] Comment on above: Performed By: #### L 100.0100, L500.4050 ####[facility] [address] [place], [address] Absolute Neut 3.7 X10 3/uL Normal 2.0-7.7 [facility] Comment on above: Performed By: #### L 100.0100, L500.4050 ####[facility] [address] [place], [address] Basophils/100 WBC (Bld) 0.0 % Normal 0-1 [facility] Comment on above: Performed By: #### L 100.0100, L500.4050 ####[facility] [address] [place], [address] Eosinophils/100 WBC (Bld) 0.0 % Normal 0-5 [facility] Comment on above: Performed By: #### L 100.0100, L500.4050 ####[facility] [address] [place], [address] Erythrocyte distribution width (RBC) [Ratio] 13.6 % Normal 11.6-14.6 [facility] Comment on above: Performed By: #### L 100.0100, L500.4050 ####[facility] [address] [place], [address] Hematocrit (Bld) [Volume fraction] 39.0 % Low 40-54 [facility] Comment on above: Performed By: #### L 100.0100, L500.4050 ####[facility] [address] [place], [address] Hemoglobin (Bld) [Mass/Vol] 13.2 g/dL Normal 13.0-16.5 [facility] Comment on above: Performed By: #### L 100.0100, L500.4050 ####[facility] [address] [place], [address] IG% 0.500 Normal 0.0-0.9 [facility] Comment on above: Result Comment: IG% - Immature Granulocytes (promyelocytes, myelocytes andmetamyelocytes) > 1% indicates that a LEFT SHIFT is Present. Performed By: #### L 100.0100, L500.4050 ####[facility] [address] [place], [address] Lymphocytes/100 WBC (Bld) 8.6 % Low 19-41 [facility] Comment on above: Performed By: #### L 100.0100, L500.4050 ####[facility] [address] [place], [address] MCH (RBC) [Entitic mass] 30.1 pg Normal 27.0-32.0 [facility] Comment on above: Performed By: #### L 100.0100, L500.4050 ####[facility] [address] [place], [address] MCHC (RBC) [Mass/Vol] 33.8 g/dL Normal 32-36 [facility] Comment on above: Performed By: #### L 100.0100, L500.4050 ####[facility] [address] [place], [address] MCV (RBC) [Entitic vol] 89.0 fL Normal 80-94 [facility] Comment on above: Performed By: #### L 100.0100, L500.4050 ####[facility] [address] [place], [address] Monocytes/100 WBC (Bld) 1.2 % Normal 0-10 [facility] Comment on above: Performed By: #### L 100.0100, L500.4050 ####[facility] [address] [place], [address] Neutrophils/100 WBC (Bld) 89.7 % High 47-70 [facility] Comment on above: Performed By: #### L 100.0100, L500.4050 ####[facility] [address] [place], [address] Nucleated RBC (Bld) [#/Vol] 0 10*3/uL Normal 0-5 [facility] Comment on above: Performed By: #### L 100.0100, L500.4050 ####[facility] [address] [place], [address] Platelet mean volume (Bld) [Entitic vol] 11.4 fL Normal 6.2-12.0 [facility] Comment on above: Performed By: #### L 100.0100, L500.4050 ####[facility] [address] [place], [address] Platelets (Bld) [#/Vol] 164 10*3/uL Normal 150-450 [facility] Comment on above: Performed By: #### L 100.0100, L500.4050 ####[facility] [address] [place], [address] RBC (Bld) [#/Vol] 4.38 10*6/uL Low 4.6-6.2 [facility] Comment on above: Performed By: #### L 100.0100, L500.4050 ####[facility] [address] [place], [address] RDW SD 44.3 fl High 35.1-43.9 [facility] Comment on above: Performed By: #### L 100.0100, L500.4050 ####[facility] [address] [place], [address] WBC (Bld) [#/Vol] 4.1 10*3/uL Low 4.4-11.0 [facility] Comment on above: Performed By: #### L 100.0100, L500.4050 ####[facility] [address] [place], [address] CO2 (BldV) [Moles/Vol]Ordere d By: April Napoles on 06-28-2024 CO2 [Moles/Vol] 16 mmol/L Low 23-33 [facility] CO2 (BldV) [Partial pressure ]Ordered By: April Napoles on 06-28-2024 Bed Mix Venous Bld PCO2 at Pat Temp 25.9 mmHg Low 41-51 [facility] Comprehensive Metabolic Prof ilon 06-28-2024 Albumin [Mass/Vol] 3.5 g/dL Normal 3.4-4.8 [facility] Comment on above: Performed By: #### L 100.0100, L500.4050 ####[facility] [address] [place], [address] Albumin/Globulin [Mass ratio] 1.4 {ratio} Normal 0.9-2.4 [facility] Comment on above: Performed By: #### L 100.0100, L500.4050 ####[facility] [address] [place], [address] ALK PHOS 75 U/L Normal 40-129 [facility] Comment on above: Performed By: #### L 100.0100, L500.4050 ####[facility] [address] [place], [address] ALT [Catalytic activity/Vol] 39 U/L Normal <=46 [facility] Comment on above: Performed By: #### L 100.0100, L500.4050 ####[facility] [address] [place], [address] AST [Catalytic activity/Vol] 21 U/L Normal <=37 [facility] Comment on above: Performed By: #### L 100.0100, L500.4050 ####[facility] [address] [place], [address] Bilirubin [Mass/Vol] 0.58 mg/dL Normal 0.00-1.30 [facility] Comment on above: Performed By: #### L 100.0100, L500.4050 ####[facility] [address] [place], [address] BUN/CRE 29.8 RATIO High 10-20 [facility] Comment on above: Performed By: #### L 100.0100, L500.4050 ####[facility] [address] [place], [address] Calcium [Mass/Vol] 8.9 mg/dL Normal 7.6-11.0 [facility] Comment on above: Performed By: #### L 100.0100, L500.4050 ####[facility] [address] [place], [address] Chloride [Moles/Vol] 111 mmol/L High 98-108 [facility] Comment on above: Performed By: #### L 100.0100, L500.4050 ####[facility] [address] [place], [address] CO2 [Moles/Vol] 14.8 mmol/L Low 21.0-32.0 [facility] Comment on above: Performed By: #### L 100.0100, L500.4050 ####[facility] [address] [place], [address] Creatinine [Mass/Vol] 1.28 mg/dL High 0.70-1.20 [facility] Comment on above: Performed By: #### L 100.0100, L500.4050 ####[facility] [address] [place], [address] ECRCL 46.80 ml/min Low 50-250 [facility] Comment on above: Performed By: #### L 100.0100, L500.4050 ####[facility] [address] [place], [address] GAP 13 Normal 5-15 [facility] Comment on above: Performed By: #### L 100.0100, L500.4050 ####[facility] [address] [place], [address] GFR/1.73 sq M.predicted among non-blacks MDRD (S/P/Bld) [Vol rate/Area] 57 mL/min/{1.73_m2} Low >60 [facility] Comment on above: Result Comment: mL/m in/1.73m2 CKD-EPI Creatinine Equation (2020) Performed By: #### L 100.0100, L500.4050 ####[facility] [address] [place], [address] Globulin (S) [Mass/Vol] 2.5 g/dL Normal 2.2-4.2 [facility] Comment on above: Performed By: #### L 100.0100, L500.4050 ####[facility] [address] [place], [address] Glucose [Mass/Vol] 168 mg/dL High 70-99 [facility] Comment on above: Performed By: #### L 100.0100, L500.4050 ####[facility] [address] [place], [address] Potassium [Moles/Vol] 4.6 mmol/L Normal 3.3-5.1 [facility] Comment on above: Performed By: #### L 100.0100, L500.4050 ####[facility] [address] [place], [address] Sodium [Moles/Vol] 139 mmol/L Normal 133-145 [facility] Comment on above: Performed By: #### L 100.0100, L500.4050 ####[facility] [address] [place], [address] T PROT 6.0 g/dL Normal 5.9-8.4 [facility] Comment on above: Performed By: #### L 100.0100, L500.4050 ####[facility] [address] [place], [address] Urea nitrogen [Mass/Vol] 38 mg/dL High 4-19 [facility] Comment on above: Performed By: #### L 100.0100, L500.4050 ####[facility] [address] [place], [address] Consultation - Cardiologyon 06-28-2024 Consultation - Cardiology Normal [facility] Determination of fraction of inspired oxygenOrdered By: April Napoles on 06-28-2024 Blood Gas Oxygen Percent 21.0 [facility] Eosinophil percentageOrdered By: Janes Mayfield on 06-28-2024 Eosinophils/100 WBC (Bld) 0.0 % 0-5 [facility] Epithelial cells.squamous LM Ql (Urine sed)Ordered By: Janes Mayfield on 06-28-2024 Epithelial cells.squamous LM.HPF (Urine sed) [#/Area] 0 /[HPF] 0-5 [facility] Erythrocyte distribution wid th (RBC) [Ratio]Ordered By: Janes Mayfield on 06-28-2024 Erythrocyte distribution width (RBC) [Entitic vol] 44.3 fL High 35.1-43.9 [facility] Erythrocyte distribution wid th ratioOrdered By: Janes Mayfield on 06-28-2024 Erythrocyte distribution width (RBC) [Ratio] 13.6 % 11.6-14.6 [facility] Erythrocyte distribution wid th standard deviationOrdered By: Janes Mayfield on 06-28-2024 Erythrocyte distribution width (RBC) [Ratio] 44.3 fl High 35.1-43.9 [facility] Glucose Ql (U)Ordered By: Dimitri Mayfield on 06-28-2024 Urine Glucose (UA) Normal mg/dl Normal [facility] Hematocrit Auto (Bld) [Volum e fraction]Ordered By: Janes Mayfield on 06-28-2024 Hematocrit (Bld) [Volume fraction] 39.0 % Low 40-54 [facility] Hemoglobin A1con 06-28-2024 HbA1c (Bld) [Mass fraction] 6.1 % High <=5.6 [facility] Comment on above: Result Comment: Norm al < 5.7 % Prediabetic 5.7 - 6.4 % Diabetic >or= 6.5 % Please note range changes. Performed By: #### L 501.9985 ####[facility] [address] [place], [place], [address] Hemoglobin measurementOrdere d By: Janes Mayfield on 06-28-2024 Hemoglobin (Bld) [Mass/Vol] 13.2 g/dL 13.0-16.5 [facility] Immature granulocytes/100 WB C Auto (Bld)Ordered By: Janes Mayfield on 06-28-2024 Immature granulocytes/100 WBC (Bld) 0.500 % 0.0-0.9 [facility] Comment on above: IG% - Immature Granu locytes (promyelocytes, myelocytes and metamyelocytes) > 1% indicates that a LEFT SHIFT is Present. Ketones Test strip Ql (U)Ord ered By: Janes Mayfield on 06-28-2024 Ketones Ql (U) 5 mg/dl High Negative [facility] L. pneumophila Ag Ql (U)Orde red By: Janes Mayfield on 06-28-2024 Legionella Antigen [facility] L499.0042on 06-28-2024 Trop T High Sen 62 ng/L Invalid Interpretation Code <=22 [facility] Comment on above: Result Comment: Crit ical Result(s) Called at:0008 by: HOLLY GONZALEZ TO FIGUEROA??Results read back by same. Performed By: #### L 499.0042 ####[facility] [address] [place], [place], [address] L499.0043on 06-28-2024 Trop T High Sen 50 ng/L High <=22 [facility] Comment on above: Performed By: #### L 499.0043 ####[facility] [address] [place], [place], [address] Laboratory - Chemistry and C hemistry - challengeOrdered By: Janes Mayfield on 06-28-2024 AST [Catalytic activity/Vol] 21 U/L <38 [facility] Legionella Antigen Urineon 0 06-28-2024 LEGU Normal [facility] Comment on above: Performed By: #### M 300.4500, M300.4600 ####[facility] [address] [place], [place], [address] Lymphocytes Auto (Unsp spec) [#/Vol]Ordered By: Janes Mayfield on 06-28-2024 Lymphocytes (Bld) [#/Vol] 0.35 10*3/uL Low 0.83-4.51 [facility] Lymphocytes/100 WBC Auto (Un sp spec)Ordered By: Janes Mayfield on 06-28-2024 Lymphocytes/100 WBC (Bld) 8.6 % Low 19-41 [facility] MCV (mean corpuscular volume ) determinationOrdered By: Janes Mayfield on 06-28-2024 MCV (RBC) [Entitic vol] 89.0 fL 80-94 [facility] Mean corpuscular hemoglobin (MCH) determinationOrdered By: Janes Mayfield on 06-28-2024 MCH (RBC) [Entitic mass] 30.1 pg 27.0-32.0 [facility] Mean corpuscular hemoglobin concentration (MCHC) determinationOrdered By: Janes Mayfield on 06-28-2024 MCHC (RBC) [Mass/Vol] 33.8 g/dL 32-36 [facility] Mean platelet volume determi nationOrdered By: Janes Mayfield on 06-28-2024 Platelet mean volume (Bld) [Entitic vol] 11.4 fL 6.2-12.0 [facility] Microscopic analysis of urin e for red blood cells (RBC)Ordered By: Janes Mayfield on 06-28-2024 Microscopic analysis of urine for red blood cells (RBC) 0-5 SEEN /hpf 0-5 [facility] Urine RBC 0-5 SEEN /hpf 0-5 [facility] Monocyte percentageOrdered B y: Janes Mayfield on 06-28-2024 Monocytes/100 WBC (Bld) 1.2 % 0-10 [facility] Mucus LM Ql (Urine sed)Order ed By: Janes Mayfield on 06-28-2024 Mucus Ql (Urine sed) 0 SEEN /hpf [facility] Neutrophil percentageOrdered By: Janes Mayfield on 06-28-2024 Neutrophils/100 WBC (Bld) 89.7 % High 47-70 [facility] Nitrite Test strip Ql (U)Ord ered By: Janes Mayfield on 06-28-2024 Nitrite Ql (U) Positive High Negative [facility] No Panel InformationOrdered By: April Napoles on 06-28-2024 Blood Gas Sample Site Not entered [facility] Blood Gas Specimen Type FARZANA [facility] Oxygen Delivery Device Room Air [facility] Nucleated red blood cell per centageOrdered By: Janes Mayfield on 06-28-2024 Nucleated RBC/100 WBC (Bld) [Ratio] 0 % 0-5 [facility] Oxygen (BldV) [Partial press ure]Ordered By: April Napoles on 06-28-2024 Venous Blood Partial Pressure O2 70 mmHg High 25-40 [facility] Platelet countOrdered By: Dimitri Mayfield on 06-28-2024 Platelets (Bld) [#/Vol] 164 10*3/uL 150-450 [facility] Protein Test strip Ql (U)Ord ered By: Janes Mayfield on 06-28-2024 Protein Ql (U) 100 mg/dl High Negative [facility] RBC Auto (Bld) [#/Vol]Ordere d By: Janes Mayfield on 06-28-2024 RBC (Bld) [#/Vol] 4.38 10*6/uL Low 4.6-6.2 [facility] Serum globulin measurementOr dered By: Janes Mayfield on 06-28-2024 Globulin (S) [Mass/Vol] 2.5 g/dL 2.2-4.2 [facility] Serum or plasma alanine burns otransferase (ALT) measurementOrdered By: Janes Mayfield on 06-28-2024 ALT [Catalytic activity/Vol] 39 U/L <47 [facility] Serum or plasma albumin ruchi urement (mass/volume)Ordered By: Janes Mayfield on 06-28-2024 Albumin [Mass/Vol] 3.5 g/dL 3.4-4.8 [facility] Serum or plasma albumin/glob ulin mass ratioOrdered By: Janes Mayfield on 06-28-2024 Albumin/Globulin [Mass ratio] 1.4 {ratio} 0.9-2.4 [facility] Serum or plasma alkaline mahesh sphatase measurementOrdered By: Janes Mayfield on 06-28-2024 ALP [Catalytic activity/Vol] 75 U/L 40-129 [facility] Squamous epithelial cells de tection in urine sediment by light microscopyOrdered By: Janes Mayfield on 06-28-2024 Epithelial cells.squamous LM Ql (Urine sed) 0-5 SEEN /hpf 0-5 [facility] Strep pneumoniae Antig(UR,CS F)on 06-28-2024 STPAG Normal [facility] Comment on above: Performed By: #### M 300.4270, M300.2670 ####[facility] [address] [place], [place], [id number] Streptococcus pneumoniae ant igen assayOrdered By: Jaens Mayfield on 06-28-2024 Streptococcus pneumoniae Antigen (M [facility] Thyroid Stim Hormone (TSH)on 06-28-2024 TSH 1.350 uIU/mL Normal 0.300-4.200 [facility] Comment on above: Performed By: #### L 503.0106, L501.9520 ####[facility] [address] [place], [place], [phone](901) Total proteinOrdered By: Abdoul Mayfield on 06-28-2024 Protein [Mass/Vol] 6.0 g/dL 5.9-8.4 [facility] Troponin T.cardiac High sens itivity method [Mass/Vol]Ordered By: Janes Mayfield on 06-28-2024 Troponin T High Sensitivity 4 Hour 50 ng/L High <22 [facility] Troponin T.cardiac [Mass/vol ume] in Serum or Plasma by High sensitivity methodOrdered By: Janes Mayfield on 06-28-2024 Troponin T.cardiac High sensitivity method [Mass/Vol] 50 ng/L High <22 [facility] Urinalysis, Completeon 06-28 AMORPHOUS 1+ URATE Normal [facility] Comment on above: Order Comment: MARITZA CTOR TO SPECIFY Performed By: #### L 400.0001 ####[facility] [address] [place], [address] BACTERIA 1+ /hpf Normal None Seen [facility] Comment on above: Order Comment: MARITZA CTOR TO SPECIFY Performed By: #### L 400.0001 ####[facility] [address] [place], [address] EPI,SQUAMOUS 0-5 SEEN Normal 0-5 [facility] Comment on above: Order Comment: MARITZA CTOR TO SPECIFY Performed By: #### L 400.0001 ####[facility] [address] [place], [address] RBC 0-5 SEEN Normal 0-5 [facility] Comment on above: Order Comment: MARITZA CTOR TO SPECIFY Performed By: #### L 400.0001 ####[facility] [address] [place], [address] WBC >100 SEEN Normal 0-5 [facility] Comment on above: Order Comment: MARITZA CTOR TO SPECIFY Performed By: #### L 400.0001 ####[facility] [address] [place], [address] Mucus Ql (Urine sed) 0 SEEN Normal [facility] Comment on above: Order Comment: MARITZA CTOR TO SPECIFY Performed By: #### L 400.0001 ####[facility] [address] [place], [place], [id number] Urine Legionella pneumophila antigen detectionOrdered By: Janes Mayfield on 06-28-2024 L. pneumophila Ag Ql (U) [facility] Urine blood detectionOrdered By: Janes Mayfield on 06-28-2024 Urine Occult Blood 25 /ul High Negative [facility] Urine clarityOrdered By: Abdoul Mayfield on 06-28-2024 Clarity (U) Sl. Cloudy Clear [facility] Urine color determinationOrd ered By: Janes Mayfield on 06-28-2024 Color (U) Straw Yellow [facility] Urine glucose detectionOrder ed By: Janes Mayfield on 06-28-2024 Glucose Ql (U) Normal mg/dl Normal [facility] Urine leukocyte esterase det ection by dipstickOrdered By: Janes Mayfield on 06-28-2024 Leukocyte esterase Test strip Ql (U) 500 /ul High Negative [facility] Urine pHOrdered By: Janes sorensen on 06-28-2024 pH (U) 6.0 [pH] 5.0 - 8.0 [facility] Urine sediment bacteria coun t by microscopy (number/high power field)Ordered By: Janes Mayfield on 06-28-2024 Bacteria LM.HPF (Urine sed) [#/Area] 1 /[HPF] None Seen [facility] Urine specific gravity measu rementOrdered By: Janes Mayfield on 06-28-2024 Specific gravity (U) [Rel density] 1.015 1.002-1.030 [facility] Urine urobilinogen measureme ntOrdered By: Janes Mayfield on 06-28-2024 Urobilinogen Ql (U) Normal mg/dl Normal [facility] Urobilinogen Ql (U)Ordered B y: Janes Mayfield on 06-28-2024 Urine Urobilinogen Normal mg/dl Normal [facility] Venous Blood Gason 5 Blood Gas Type FARZANA Normal [facility] Comment on above: Performed By: #### L 9000.0810 ####[facility] [address] [place], [address] CO2 [Moles/Vol] 16 mmol/L Low 23-33 [facility] Comment on above: Performed By: #### L 900.0810 ####[facility] [address] [place], [address] FI02 21.0 Normal [facility] Comment on above: Performed By: #### L 9000.0810 ####[facility] [address] [place], [address] HCO3 (Bld) [Moles/Vol] 16 mmol/L Low 22-26 [facility] Comment on above: Performed By: #### L 9000.0810 ####[facility] [address] [place], [address] O2 Delivery Dev Room Air Normal [facility] Comment on above: Performed By: #### L 9000.0810 ####[facility] [address] [place], [address] SITE Not entered [facility] Comment on above: Performed By: #### L 900.0810 ####[facility] [address] [place], [address] VBG BE -9 mmol/L Low -1.0-3.5 [facility] Comment on above: Performed By: #### L 900.0810 ####[facility] [address] [place], [address] VBG pCO2 25.9 mmHg Low 41-51 [facility] Comment on above: Performed By: #### L 9000.0810 ####[facility] [address] [place], [address] VBG pH 7.39 Normal 7.32-7.42 [facility] Comment on above: Performed By: #### L 9000.0810 ####[facility] [address] [place], [address] VBG PO2 70 mmHg High 25-40 [facility] Comment on above: Performed By: #### L 9000.0810 ####[facility] [address] [place], [address] VBG SO2 94 High 50-70 [facility] Comment on above: Performed By: #### L 9000.0810 ####[facility] [address] [place], [address] Venous blood base excess candy surementOrdered By: April Napoles on 06-28-2024 Base excess Calc (BldV) [Moles/Vol] -9 mmol/L Low -1.0-3.5 [facility] Venous blood bicarbonate candy surementOrdered By: April Napoles on 06-28-2024 HCO3 (Bld) [Moles/Vol] 16 mmol/L Low 22-26 [facility] Venous blood oxygen saturati on measurementOrdered By: April Napoles on 06-28-2024 Oxygen saturation in Blood 94 % High 50-70 [facility] Venous blood pH measurementO rdered By: April Napoles on 06-28-2024 pH (BldV) 7.39 [pH] 7.32-7.42 [facility] Venous blood partial pressur e of carbon dioxide measurementOrdered By: April Napoles on 06-28-2024 CO2 (BldV) [Partial pressure] 25.9 mm[Hg] Low 41-51 [facility] Venous blood partial pressur e of oxygen measurementOrdered By: April Napoles on 06-28-2024 Oxygen (BldV) [Partial pressure] 70 mm[Hg] High 25-40 [facility] Vitamin B12on 06-28-2024 Cobalamin (Vitamin B12) [Mass/Vol] 495 pg/mL Normal 180-914 [facility] Comment on above: Performed By: #### L 503.0106, L501.9520 ####[facility] [address] [place], [place], [address] White blood cell (WBC) count Ordered By: Janes Mayfield on 06-28-2024 WBC (Bld) [#/Vol] 4.1 10*3/uL Low 4.4-11.0 [facility] White blood cell countOrdere d By: Janes Mayfield on 06-28-2024 Urine WBC >100 SEEN /hpf 0-5 [facility] White blood cell count >100 SEEN /hpf 0-5 [facility] pH (BldV)Ordered By: April Napoles on 06-28-2024 Venous Blood pH 7.39 7.32-7.42 [facility] 12 Lead EKGon 06-27-2024 12 Lead EKG Normal [facility] 12 Lead EKG Normal [facility] Absolute neutrophil countOrd ered By: Valente Beckford on 06-27-2024 Neutrophils (Bld) [#/Vol] 5.8 10*3/uL 2.0-7.7 [facility] Anion gap in Serum or Plasma Ordered By: Valente Beckford on 06-27-2024 Anion gap [Moles/Vol] 11 mmol/L 5-15 [facility] BUN/creatinine ratioOrdered By: Valente Beckford on 06-27-2024 Urea nitrogen/Creatinine [Mass ratio] 28.9 mg/mg High - [facility] Basic Metabolic Profile (BMP )on 06-27-2024 BUN/CRE 28.9 RATIO High 01-04 [facility] Comment on above: Performed By: #### L 100.0100, L501.4021, L500.2500 ####[facility] [address] [place], [address] Calcium [Mass/Vol] 9.0 mg/dL Normal 7.6-11.0 [facility] Comment on above: Performed By: #### L 100.0100, L501.4021, L500.2500 ####[facility] [address] [place], [address] Chloride [Moles/Vol] 110 mmol/L High 98-108 [facility] Comment on above: Performed By: #### L 100.0100, L501.4021, L500.2500 ####[facility] [address] [place], [address] CO2 [Moles/Vol] 17.4 mmol/L Low 21.0-32.0 [facility] Comment on above: Performed By: #### L 100.0100, L501.4021, L500.2500 ####[facility] [address] [place], [address] Creatinine [Mass/Vol] 1.15 mg/dL Normal 0.70-1.20 [facility] Comment on above: Performed By: #### L 100.0100, L501.4021, L500.2500 ####[facility] [address] [place], [address] ECRCL 52.09 ml/min Normal 50-250 [facility] Comment on above: Performed By: #### L 100.0100, L501.4021, L500.2500 ####[facility] [address] [place], [address] GAP 11 Normal 5-15 [facility] Comment on above: Performed By: #### L 100.0100, L501.4021, L500.2500 ####[facility] [address] [place], [address] GFR/1.73 sq M.predicted among non-blacks MDRD (S/P/Bld) [Vol rate/Area] 65 mL/min/{1.73_m2} Normal >60 [facility] Comment on above: Result Comment: mL/m in/1.73m2 CKD-EPI Creatinine Equation (2020) Performed By: #### L 100.0100, L501.4021, L500.2500 ####[facility] [address] [place], [address] Glucose [Mass/Vol] 103 mg/dL High 70-99 [facility] Comment on above: Performed By: #### L 100.0100, L501.4021, L500.2500 ####[facility] [address] [place], [address] Potassium [Moles/Vol] 4.5 mmol/L Normal 3.3-5.1 [facility] Comment on above: Performed By: #### L 100.0100, L501.4021, L500.2500 ####[facility] [address] [place], [address] Sodium [Moles/Vol] 138 mmol/L Normal 133-145 [facility] Comment on above: Performed By: #### L 100.0100, L501.4021, L500.2500 ####[facility] [address] [place], [address] Urea nitrogen [Mass/Vol] 33 mg/dL High 4-19 [facility] Comment on above: Performed By: #### L 100.0100, L501.4021, L500.2500 ####[facility] [address] [place], [address] Basophil percentageOrdered B y: Valente Beckford on 06-27-2024 Basophils/100 WBC (Bld) 0.8 % 0-1 [facility] CBC W/Diff, Automatedon 06-16 Absolute Lymph 1.29 X10 3/uL Normal 0.83-4.51 [facility] Comment on above: Performed By: #### L 100.0100, L501.4021, L500.2500 ####[facility] [address] [place], [address] Absolute Neut 5.8 X10 3/uL Normal 2.0-7.7 [facility] Comment on above: Performed By: #### L 100.0100, L501.4021, L500.2500 ####[facility] [address] [place], [address] Basophils/100 WBC (Bld) 0.8 % Normal 0-1 [facility] Comment on above: Performed By: #### L 100.0100, L501.4021, L500.2500 ####[facility] [address] [place], [address] Eosinophils/100 WBC (Bld) 2.1 % Normal 0-5 [facility] Comment on above: Performed By: #### L 100.0100, L501.4021, L500.2500 ####[facility] [address] [place], [address] Erythrocyte distribution width (RBC) [Ratio] 13.8 % Normal 11.6-14.6 [facility] Comment on above: Performed By: #### L 100.0100, L501.4021, L500.2500 ####[facility] [address] [place], [address] Hematocrit (Bld) [Volume fraction] 43.0 % Normal 40-54 [facility] Comment on above: Performed By: #### L 100.0100, L501.4021, L500.2500 ####[facility] [address] [place], [address] Hemoglobin (Bld) [Mass/Vol] 14.4 g/dL Normal 13.0-16.5 [facility] Comment on above: Performed By: #### L 100.0100, L501.4021, L500.2500 ####[facility] [address] [place], [address] IG% 0.300 Normal 0.0-0.9 [facility] Comment on above: Result Comment: IG% - Immature Granulocytes (promyelocytes, myelocytes andmetamyelocytes) > 1% indicates that a LEFT SHIFT is Present. Performed By: #### L 100.0100, L501.4021, L500.2500 ####[facility] [address] [place], [address] Lymphocytes/100 WBC (Bld) 16.2 % Low 19-41 [facility] Comment on above: Performed By: #### L 100.0100, L501.4021, L500.2500 ####[facility] [address] [place], [address] MCH (RBC) [Entitic mass] 30.4 pg Normal 27.0-32.0 [facility] Comment on above: Performed By: #### L 100.0100, L501.4021, L500.2500 ####[facility] [address] [place], [address] MCHC (RBC) [Mass/Vol] 33.5 g/dL Normal 32-36 [facility] Comment on above: Performed By: #### L 100.0100, L501.4021, L500.2500 ####[facility] [address] [place], [address] MCV (RBC) [Entitic vol] 90.7 fL Normal 80-94 [facility] Comment on above: Performed By: #### L 100.0100, L501.4021, L500.2500 ####[facility] [address] [place], [address] Monocytes/100 WBC (Bld) 8.3 % Normal 0-10 [facility] Comment on above: Performed By: #### L 100.0100, L501.4021, L500.2500 ####[facility] [address] [place], [address] Neutrophils/100 WBC (Bld) 72.3 % High 47-70 [facility] Comment on above: Performed By: #### L 100.0100, L501.4021, L500.2500 ####[facility] [address] [place], [address] Nucleated RBC (Bld) [#/Vol] 0 10*3/uL Normal 0-5 [facility] Comment on above: Performed By: #### L 100.0100, L501.4021, L500.2500 ####[facility] [address] [place], [address] Platelet mean volume (Bld) [Entitic vol] 11.3 fL Normal 6.2-12.0 [facility] Comment on above: Performed By: #### L 100.0100, L501.4021, L500.2500 ####[facility] [address] [place], [address] Platelets (Bld) [#/Vol] 196 10*3/uL Normal 150-450 [facility] Comment on above: Performed By: #### L 100.0100, L501.4021, L500.2500 ####[facility] [address] [place], [address] RBC (Bld) [#/Vol] 4.74 10*6/uL Normal 4.6-6.2 [facility] Comment on above: Performed By: #### L 100.0100, L501.4021, L500.2500 ####[facility] [address] [place], [address] RDW SD 45.5 fl High 35.1-43.9 [facility] Comment on above: Performed By: #### L 100.0100, L501.4021, L500.2500 ####[facility] [address] [place], [address] WBC (Bld) [#/Vol] 8.0 10*3/uL Normal 4.4-11.0 [facility] Comment on above: Performed By: #### L 100.0100, L501.4021, L500.2500 ####[facility] [address] [place], [address] Carbon dioxide, total [Moles /volume] in Central venous bloodOrdered By: Valente Beckford on 06-27-2024 CO2 [Moles/Vol] 17.4 mmol/L Low 21.0-32.0 [facility] Chest PA and Lateralon 06-27 Chest PA and Lateral Normal [facility] Chest without Contraston Chest without Contrast Normal [facility] Chloride assayOrdered By: Waldemar Beckford on 06-27-2024 Chloride [Moles/Vol] 110 mmol/L High 98-108 [facility] Echo Completeon 06-27-2024 Echo Complete Normal [facility] Emergency Department Summary on 06-27-2024 Emergency Department Summary Normal [facility] Eosinophil percentageOrdered By: Valente Beckford on 06-27-2024 Eosinophils/100 WBC (Bld) 2.1 % 0-5 [facility] Erythrocyte distribution wid th (RBC) [Ratio]Ordered By: Valente Beckford on 06-27-2024 Erythrocyte distribution width (RBC) [Entitic vol] 45.5 fL High 35.1-43.9 [facility] Erythrocyte distribution wid th ratioOrdered By: Valente Beckford on 06-27-2024 Erythrocyte distribution width (RBC) [Ratio] 13.8 % 11.6-14.6 [facility] Estimation of creatinine haresh aranceOrdered By: Valente Beckford on 06-27-2024 Estimated Creatinine Clearance Calc 52.09 ml/min 50-250 [facility] Folate [Moles/Vol]Ordered By : Janes Mayfield on 06-27-2024 Serum Folate 11.20 ng/mL 4.60-34.80 [facility] Folate [Moles/volume] in Ser um or PlasmaOrdered By: Janes Mayfield on 06-27-2024 Folate [Moles/Vol] 11.20 ng/mL 4.60-34.80 [facility] Folates,Serum (Folic Acid)on 06-27-2024 FOLATES,SERUM 11.20 ng/mL Normal 4.60-34.80 [facility] Comment on above: Performed By: #### L 501.5200, L506.0200 ####[facility] [address] [place], [address] GFR/1.73 sq M.predicted dane g non-blacks MDRD (S/P/Bld) [Vol rate/Area]Ordered By: Valente Beckford on 06-27-2024 Estimated GFR (MDRD) Non-Af Amer 65 >60 [facility] Comment on above: mL/min/1.73m2 CKD-EP I Creatinine Equation (2020) H AND P Exam - [place] 06-27-2024 H&P Exam - Hospitalist Normal [facility] Hematocrit Auto (Bld) [Volum e fraction]Ordered By: Valente Beckford on 06-27-2024 Hematocrit (Bld) [Volume fraction] 43.0 % 40-54 [facility] Hemoglobin A1c percentageOrd ered By: Janes Mayfield on 06-27-2024 HbA1c (Bld) [Mass fraction] 6.1 % High <5.7 [facility] Comment on above: Normal < 5.7 % Predi abetic 5.7 - 6.4 % Diabetic >or= 6.5 % Please note range changes. Hemoglobin measurementOrdere d By: Valente Beckford on 06-27-2024 Hemoglobin (Bld) [Mass/Vol] 14.4 g/dL 13.0-16.5 [facility] Immature granulocytes/100 WB C Auto (Bld)Ordered By: Valente Beckford on 06-27-2024 Immature granulocytes/100 WBC (Bld) 0.300 % 0.0-0.9 [facility] Comment on above: IG% - Immature Granu locytes (promyelocytes, myelocytes and metamyelocytes) > 1% indicates that a LEFT SHIFT is Present. Influenza virus A and B and SARS-CoV-2 (COVID-19) and Respiratory syncytial virus RNAOrdered By: Valente Beckford on 06-27-2024 SARS-CoV-2 (COVID-19) RNA CORWIN+probe Ql (Unsp spec) [facility] L501.4021on 06-27-2024 Trop T High Sen 41 ng/L High <=22 [facility] Comment on above: Performed By: #### L 100.0100, L501.4021, L500.2500 ####[facility] [address] [place], [address] Lymphocytes Auto (Unsp spec) [#/Vol]Ordered By: Valente Beckford on 06-27-2024 Lymphocytes (Bld) [#/Vol] 1.29 10*3/uL 0.83-4.51 [facility] Lymphocytes/100 WBC Auto (Un sp spec)Ordered By: Valente Beckford on 06-27-2024 Lymphocytes/100 WBC (Bld) 16.2 % Low 19-41 [facility] M100.678on 06-27-2024 M100.678 Pending SARS-CoV-2 (COVID 19) Negative INFLUENZA A Negative INFLUENZA B Negative RSV PCR Negative Normal [facility] Comment on above: Performed By: #### M 100.678 ####[facility] [address] [place], [address] MCV (mean corpuscular volume ) determinationOrdered By: Valente Beckford on 06-27-2024 MCV (RBC) [Entitic vol] 90.7 fL 80-94 [facility] Magnesiumon 06-27-2024 Magnesium [Mass/Vol] 2.2 mg/dL Normal 1.5-2.2 [facility] Comment on above: Performed By: #### L 501.5200, L506.0200 ####[facility] [address] [place], [address] Magnesium (Unsp spec) [Mass/ Vol]Ordered By: Janes Mayfield on 06-27-2024 Magnesium [Mass/Vol] 2.2 mg/dL 1.5-2.2 [facility] Magnesium measurement (mass/ volume)Ordered By: Janes Mayfield on 06-27-2024 Magnesium (Unsp spec) [Mass/Vol] 2.2 mg/dL 1.5-2.2 [facility] Mean corpuscular hemoglobin (MCH) determinationOrdered By: Valente Beckford on 06-27-2024 MCH (RBC) [Entitic mass] 30.4 pg 27.0-32.0 [facility] Mean corpuscular hemoglobin concentration (MCHC) determinationOrdered By: Valente Beckford on 06-27-2024 MCHC (RBC) [Mass/Vol] 33.5 g/dL 32-36 [facility] Mean platelet volume determi nationOrdered By: Valente Beckford on 06-27-2024 Platelet mean volume (Bld) [Entitic vol] 11.3 fL 6.2-12.0 [facility] Monocyte percentageOrdered B y: Valente Beckford on 06-27-2024 Monocytes/100 WBC (Bld) 8.3 % 0-10 [facility] Neutrophil percentageOrdered By: Valente Beckford on 06-27-2024 Neutrophils/100 WBC (Bld) 72.3 % High 47-70 [facility] Nucleated red blood cell per centageOrdered By: Valente Beckford on 06-27-2024 Nucleated RBC/100 WBC (Bld) [Ratio] 0 % 0-5 [facility] Platelet countOrdered By: Waldemar Beckford on 06-27-2024 Platelets (Bld) [#/Vol] 196 10*3/uL 150-450 [facility] Potassium (Unsp spec) [Mass/ Vol]Ordered By: Valente Beckford on 06-27-2024 Potassium [Moles/Vol] 4.5 mmol/L 3.3-5.1 [facility] RBC Auto (Bld) [#/Vol]Ordere d By: Valente Beckford on 06-27-2024 RBC (Bld) [#/Vol] 4.74 10*6/uL 4.6-6.2 [facility] Serum creatinine measurement (mass/volume)Ordered By: Valente Beckford on 06-27-2024 Creatinine [Mass/Vol] 1.15 mg/dL 0.70-1.20 [facility] Serum glucose measurement (m ass/volume)Ordered By: Valente Beckford on 06-27-2024 Glucose [Mass/Vol] 103 mg/dL High 70-99 [facility] Serum or plasma calcium ruchi urement (mass/volume)Ordered By: Valente Beckford on 06-27-2024 Calcium [Mass/Vol] 9.0 mg/dL 7.6-11.0 [facility] Serum or plasma urea nitroge n measurement (mass/volume)Ordered By: Valente Beckford on 06-27-2024 Urea nitrogen [Mass/Vol] 33 mg/dL High 4-19 [facility] Sodium levelOrdered By: Valente Beckford on 06-27-2024 Sodium [Moles/Vol] 138 mmol/L 133-145 [facility] TSH DL <= 0.005 mIU/L QnOrde red By: Janes Mayfield on 06-27-2024 Thyroid Stimulating Hormone (TSH) 1.350 uIU/mL 0.300-4.200 [facility] TSH Qn 1.350 uIU/mL 0.300-4.200 [facility] Troponin T.cardiac High sens itivity method [Mass/Vol]Ordered By: Valente Beckford on 06-27-2024 Troponin T High Sensitivity 2 Hour 62 ng/L High <22 [facility] Comment on above: Critical Result(s) C alled at:0008 by: HOLLY DENSON Results read back by same. Troponin T High Sensitivity 41 ng/L High <22 [facility] Troponin T.cardiac [Mass/vol ume] in Serum or Plasma by High sensitivity methodOrdered By: Valente Beckford on 06-27-2024 Troponin T.cardiac High sensitivity method [Mass/Vol] 62 ng/L High <22 [facility] Comment on above: Critical Result(s) C alled at:0008 by: HOLLY DENSON Results read back by same. Troponin T.cardiac High sensitivity method [Mass/Vol] 41 ng/L High <22 [facility] Vitamin B12 ser/plasOrdered By: Janes Mayfield on 06-27-2024 Cobalamin (Vitamin B12) [Mass/Vol] 495 pg/mL 180-914 [facility] White blood cell (WBC) count Ordered By: Vaelnte Beckford on 06-27-2024 WBC (Bld) [#/Vol] 8.0 10*3/uL 4.4-11.0 [facility] Cardiology Visit Reporton Cardiology Visit Report Normal [facility] Absolute lymphocyte countOrd ered By: Elieser Win on 05-27-2024 Lymphocytes Auto (Unsp spec) [#/Vol] 1.38 10*3/uL 0.83-4.51 [facility] Absolute neutrophil countOrd ered By: Elieser Win on 05-27-2024 Neutrophils (Bld) [#/Vol] 4.3 10*3/uL 2.0-7.7 [facility] Anion gap in Serum or Plasma Ordered By: Elieser Win on 05-27-2024 Anion gap [Moles/Vol] 11 mmol/L 5-15 [facility] Automated lymphocyte count a s percentage of total leukocytesOrdered By: Elieser Win on 05-27-2024 Lymphocytes/100 WBC Auto (Unsp spec) 20.8 % - [facility] BUN/creatinine ratioOrdered By: Elieser Win on 05-27-2024 Urea nitrogen/Creatinine [Mass ratio] 18.7 mg/mg 10-20 [facility] Basophil percentageOrdered B y: Elieser Win on 05-27-2024 Basophils/100 WBC (Bld) 0.9 % 0- [facility] Bilirubin, totalOrdered By: Elieser Win on 05-27-2024 Bilirubin [Mass/Vol] 0.44 mg/dL 0.00-1.30 [facility] CBC W/Diff, Automatedon 05-16 Absolute Lymph 1.38 X10 3/uL Normal 0.83-4.51 [facility] Comment on above: Performed By: #### L 100.0100, L500.4100, L500.4050 ####[facility] [address] [place], [place], [id number] Absolute Neut 4.3 X10 3/uL Normal 2.0-7.7 [facility] Comment on above: Performed By: #### L 100.0100, L500.4100, L500.4050 ####[facility] [address] [place], [address] Basophils/100 WBC (Bld) 0.9 % Normal 0-1 [facility] Comment on above: Performed By: #### L 100.0100, L500.4100, L500.4050 ####[facility] [address] [place], [address] Eosinophils/100 WBC (Bld) 2.9 % Normal 0-5 [facility] Comment on above: Performed By: #### L 100.0100, L500.4100, L500.4050 ####[facility] [address] [place], [address] Erythrocyte distribution width (RBC) [Ratio] 13.7 % Normal 11.6-14.6 [facility] Comment on above: Performed By: #### L 100.0100, L500.4100, L500.4050 ####[facility] [address] [place], [address] Hematocrit (Bld) [Volume fraction] 46.7 % Normal 40-54 [facility] Comment on above: Performed By: #### L 100.0100, L500.4100, L500.4050 ####[facility] [address] [place], [address] Hemoglobin (Bld) [Mass/Vol] 15.4 g/dL Normal 13.0-16.5 [facility] Comment on above: Performed By: #### L 100.0100, L500.4100, L500.4050 ####[facility] [address] [place], [address] IG% 0.300 Normal 0.0-0.9 [facility] Comment on above: Result Comment: IG% - Immature Granulocytes (promyelocytes, myelocytes andmetamyelocytes) > 1% indicates that a LEFT SHIFT is Present. Performed By: #### L 100.0100, L500.4100, L500.4050 ####[facility] [address] [place], [address] Lymphocytes/100 WBC (Bld) 20.8 % Normal 19-41 [facility] Comment on above: Performed By: #### L 100.0100, L500.4100, L500.4050 ####[facility] [address] [place], [address] MCH (RBC) [Entitic mass] 29.8 pg Normal 27.0-32.0 [facility] Comment on above: Performed By: #### L 100.0100, L500.4100, L500.4050 ####[facility] [address] [place], [address] MCHC (RBC) [Mass/Vol] 33.0 g/dL Normal 32-36 [facility] Comment on above: Performed By: #### L 100.0100, L500.4100, L500.4050 ####[facility] [address] [place], [address] MCV (RBC) [Entitic vol] 90.3 fL Normal 80-94 [facility] Comment on above: Performed By: #### L 100.0100, L500.4100, L500.4050 ####[facility] [address] [place], [address] Monocytes/100 WBC (Bld) 10.2 % High 0-10 [facility] Comment on above: Performed By: #### L 100.0100, L500.4100, L500.4050 ####[facility] [address] [place], [address] Neutrophils/100 WBC (Bld) 64.9 % Normal 47-70 [facility] Comment on above: Performed By: #### L 100.0100, L500.4100, L500.4050 ####[facility] [address] [place], [address] Nucleated RBC (Bld) [#/Vol] 0 10*3/uL Normal 0-5 [facility] Comment on above: Performed By: #### L 100.0100, L500.4100, L500.4050 ####[facility] [address] [place], [address] Platelet mean volume (Bld) [Entitic vol] 10.0 fL Normal 6.2-12.0 [facility] Comment on above: Performed By: #### L 100.0100, L500.4100, L500.4050 ####[facility] [address] [place], [address] Platelets (Bld) [#/Vol] 264 10*3/uL Normal 150-450 [facility] Comment on above: Performed By: #### L 100.0100, L500.4100, L500.4050 ####[facility] [address] [place], [address] RBC (Bld) [#/Vol] 5.17 10*6/uL Normal 4.6-6.2 [facility] Comment on above: Performed By: #### L 100.0100, L500.4100, L500.4050 ####[facility] [address] [place], [address] RDW SD 45.4 fl High 35.1-43.9 [facility] Comment on above: Performed By: #### L 100.0100, L500.4100, L500.4050 ####[facility] [address] [place], [address] WBC (Bld) [#/Vol] 6.7 10*3/uL Normal 4.4-11.0 [facility] Comment on above: Performed By: #### L 100.0100, L500.4100, L500.4050 ####[facility] [address] [place], [address] Calculated very low density lipoprotein (VLDL) cholesterol measurementOrdered By: Elieser Win on 05-27-2024 Calculated very low density lipoprotein (VLDL) cholesterol measurement 12 mg/dL 5-40 [facility] VLDL Cholesterol 12 mg/dL 5-40 [facility] Carbon dioxide, total [Moles /volume] in Central venous bloodOrdered By: Elieser Win on 05-27-2024 CO2 [Moles/Vol] 23.4 mmol/L 21.0-32.0 [facility] Chloride assayOrdered By: Prince Win on 05-27-2024 Chloride [Moles/Vol] 109 mmol/L High 98-108 [facility] Comprehensive Metabolic Prof ilon 05-27-2024 Albumin [Mass/Vol] 4.2 g/dL Normal 3.4-4.8 [facility] Comment on above: Performed By: #### L 100.0100, L500.4100, L500.4050 ####[facility] [address] [place], [address] Albumin/Globulin [Mass ratio] 1.3 {ratio} Normal 0.9-2.4 [facility] Comment on above: Performed By: #### L 100.0100, L500.4100, L500.4050 ####[facility] [address] [place], [address] ALK PHOS 81 U/L Normal 40-129 [facility] Comment on above: Performed By: #### L 100.0100, L500.4100, L500.4050 ####[facility] [address] [place], [address] ALT [Catalytic activity/Vol] 14 U/L Normal <=46 [facility] Comment on above: Performed By: #### L 100.0100, L500.4100, L500.4050 ####[facility] [address] [place], [address] AST [Catalytic activity/Vol] 18 U/L Normal <=37 [facility] Comment on above: Performed By: #### L 100.0100, L500.4100, L500.4050 ####[facility] [address] [place], [address] Bilirubin [Mass/Vol] 0.44 mg/dL Normal 0.00-1.30 [facility] Comment on above: Performed By: #### L 100.0100, L500.4100, L500.4050 ####[facility] [address] [place], [address] BUN/CRE 18.7 RATIO Normal 10-20 [facility] Comment on above: Performed By: #### L 100.0100, L500.4100, L500.4050 ####[facility] [address] [place], [address] Calcium [Mass/Vol] 9.9 mg/dL Normal 7.6-11.0 [facility] Comment on above: Performed By: #### L 100.0100, L500.4100, L500.4050 ####[facility] [address] [place], [address] Chloride [Moles/Vol] 109 mmol/L High 98-108 [facility] Comment on above: Performed By: #### L 100.0100, L500.4100, L500.4050 ####[facility] [address] [place], [address] CO2 [Moles/Vol] 23.4 mmol/L Normal 21.0-32.0 [facility] Comment on above: Performed By: #### L 100.0100, L500.4100, L500.4050 ####[facility] [address] [place], [address] Creatinine [Mass/Vol] 0.85 mg/dL Normal 0.70-1.20 [facility] Comment on above: Performed By: #### L 100.0100, L500.4100, L500.4050 ####[facility] [address] [place], [address] GAP 11 Normal 5-15 [facility] Comment on above: Performed By: #### L 100.0100, L500.4100, L500.4050 ####[facility] [address] [place], [address] GFR/1.73 sq M.predicted among non-blacks MDRD (S/P/Bld) [Vol rate/Area] 88 mL/min/{1.73_m2} Normal >60 [facility] Comment on above: Result Comment: mL/m in/1.73m2 CKD-EPI Creatinine Equation (2020) Performed By: #### L 100.0100, L500.4100, L500.4050 ####[facility] [address] [place], [address] Globulin (S) [Mass/Vol] 3.1 g/dL Normal 2.2-4.2 [facility] Comment on above: Performed By: #### L 100.0100, L500.4100, L500.4050 ####[facility] [address] [place], [address] Glucose [Mass/Vol] 95 mg/dL Normal 70-99 [facility] Comment on above: Performed By: #### L 100.0100, L500.4100, L500.4050 ####[facility] [address] [place], [address] Potassium [Moles/Vol] 4.9 mmol/L Normal 3.3-5.1 [facility] Comment on above: Performed By: #### L 100.0100, L500.4100, L500.4050 ####[facility] [address] [place], [address] Sodium [Moles/Vol] 143 mmol/L Normal 133-145 [facility] Comment on above: Performed By: #### L 100.0100, L500.4100, L500.4050 ####[facility] [address] [place], [address] T PROT 7.3 g/dL Normal 5.9-8.4 [facility] Comment on above: Performed By: #### L 100.0100, L500.4100, L500.4050 ####[facility] [address] [place], [address] Urea nitrogen [Mass/Vol] 16 mg/dL Normal 4-19 [facility] Comment on above: Performed By: #### L 100.0100, L500.4100, L500.4050 ####[facility] [address] [place], [address] Eosinophil percentageOrdered By: Elieser Win on 05-27-2024 Eosinophils/100 WBC (Bld) 2.9 % 0-5 [facility] Erythrocyte distribution wid th ratioOrdered By: Elieser Win on 05-27-2024 Erythrocyte distribution width (RBC) [Ratio] 13.7 % 11.6-14.6 [facility] Erythrocyte distribution wid th standard deviationOrdered By: Elieser Win on 05-27-2024 Erythrocyte distribution width (RBC) [Entitic vol] 45.4 fL High 35.1-43.9 [facility] Erythrocyte distribution width (RBC) [Ratio] 45.4 fl High 35.1-43.9 [facility] GFR/1.73 sq M.predicted dane g non-blacks MDRD (S/P/Bld) [Vol rate/Area]Ordered By: Elieser Win on 05-27-2024 Estimated GFR (MDRD) Non-Af Amer 88 >60 [facility] Comment on above: mL/min/1.73m2 CKD-EP I Creatinine Equation (2020) Glomerular filtration rate ( GFR) estimation/1.73 sq m using serum, plasma, or whole bOrdered By: Elieser Win on 05-27-2024 GFR/1.73 sq M.predicted among non-blacks MDRD (S/P/Bld) [Vol rate/Area] 88 mL/min/{1.73_m2} >60 [facility] Comment on above: mL/min/1.73m2 CKD-EP I Creatinine Equation (2020) Hematocrit Auto (Bld) [Volum e fraction]Ordered By: Elieser Win on 05-27-2024 Hematocrit (Bld) [Volume fraction] 46.7 % 40-54 [facility] Hemoglobin measurementOrdere d By: Elieser Win on 05-27-2024 Hemoglobin (Bld) [Mass/Vol] 15.4 g/dL 13.0-16.5 [facility] Immature granulocytes/100 WB C Auto (Bld)Ordered By: Elieser Win on 05-27-2024 Immature granulocytes/100 WBC (Bld) 0.300 % 0.0-0.9 [facility] Comment on above: IG% - Immature Granu locytes (promyelocytes, myelocytes and metamyelocytes) > 1% indicates that a LEFT SHIFT is Present. Internal Medicine Office Vis iton 05-27-2024 Internal Medicine Office Visit Normal [facility] LDL calc ser/plasOrdered By: Elieser Win on 05-27-2024 Cholesterol in LDL [Mass/Vol] 72 mg/dL [facility] Comment on above: Kmetnjlmtd=303-114 m g/dL & Higher Xber=423 mg/dL or greater LDL Cholesterol, Calculated 72 mg/dL [facility] Comment on above: Tifzhshxpm=612-010 m g/dL & Higher Yzff=919 mg/dL or greater Laboratory - Chemistry and C hemistry - challengeOrdered By: Elieser Win on 05-27-2024 AST [Catalytic activity/Vol] 18 U/L <38 [facility] Lipid Profileon 05-27-2024 CHOL:HDL 2.28 Normal [facility] Comment on above: Performed By: #### L 100.0100, L500.4100, L500.4050 ####[facility] [address] [place], [address] Cholesterol [Mass/Vol] 149 mg/dL Normal <=200 [facility] Comment on above: Result Comment: Chol esterol level, Desirable <200 mg/dLBorderline high cholesterol 200-239 mg/dLHigh cholesterol >=240 mg/dLRecommendations of the NCEP Adult Treatment Panel for thefollowing risk-cutoff thresholds for the [place] [facility]. Performed By: #### L 100.0100, L500.4100, L500.4050 ####[facility] [address] [place], [address] Cholesterol in HDL [Mass/Vol] 65 mg/dL Normal [facility] Comment on above: Result Comment: Hoa onal Cholesterol Education Program (NCEP) guidelines:<40 mg/dL: Low HDL-cholesterol (major risk factor for CHD)>= 60 mg/dL: High HDL-cholesterol (negative risk factor forCHD)HDL-cholesterol is affected by a number of factors, e.g.smoking, exercise, hormones, sex and age. Performed By: #### L 100.0100, L500.4100, L500.4050 ####[facility] [address] [place], [address] Cholesterol in LDL [Mass/Vol] 72 mg/dL Normal [facility] Comment on above: Result Comment: Bord naqcen=519-442 mg/dL Higher Tzry=582 mg/dL or greater Performed By: #### L 100.0100, L500.4100, L500.4050 ####[facility] [address] [place], [address] Cholesterol in VLDL [Mass/Vol] 12 mg/dL Normal 5-40 [facility] Comment on above: Performed By: #### L 100.0100, L500.4100, L500.4050 ####[facility] [address] [place], [address] Triglyceride [Mass/Vol] 59 mg/dL Normal [facility] Comment on above: Result Comment: The drugs N-Acetylcysteine and Metamizole may falselydepress this assay.Normal range: <150 mg/dLBorderline High: 150-199 mg/dLHigh: 200-499 mg/dLVery High: >500 mg/dL Performed By: #### L 100.0100, L500.4100, L500.4050 ####[facility] [address] [place], [place], [address] Lymphocytes Auto (Unsp spec) [#/Vol]Ordered By: Elieser Win on 05-27-2024 Lymphocytes (Bld) [#/Vol] 1.38 10*3/uL 0.83-4.51 [facility] Lymphocytes/100 WBC Auto (Un sp spec)Ordered By: Elieser Win on 05-27-2024 Lymphocytes/100 WBC (Bld) 20.8 % 19-41 [facility] MCV (mean corpuscular volume ) determinationOrdered By: Elieser Win on 05-27-2024 MCV (RBC) [Entitic vol] 90.3 fL 80-94 [facility] Mean corpuscular hemoglobin (MCH) determinationOrdered By: Elieser Win on 05-27-2024 MCH (RBC) [Entitic mass] 29.8 pg 27.0-32.0 [facility] Mean corpuscular hemoglobin concentration (MCHC) determinationOrdered By: Elieser Win on 05-27-2024 MCHC (RBC) [Mass/Vol] 33.0 g/dL 32-36 [facility] Mean platelet volume determi nationOrdered By: Elieser Win on 05-27-2024 Platelet mean volume (Bld) [Entitic vol] 10.0 fL 6.2-12.0 [facility] Monocyte percentageOrdered B y: Elieser Win on 05-27-2024 Monocytes/100 WBC (Bld) 10.2 % High 0-10 [facility] Neutrophil percentageOrdered By: Elieser Win on 05-27-2024 Neutrophils/100 WBC (Bld) 64.9 % 47-70 [facility] Nucleated red blood cell per centageOrdered By: Elieser Win on 05-27-2024 Nucleated RBC/100 WBC (Bld) [Ratio] 0 % 0-5 [facility] Platelet countOrdered By: Prince jaspreetjannette Win on 05-27-2024 Platelets (Bld) [#/Vol] 264 10*3/uL 150-450 [facility] Potassium (Unsp spec) [Mass/ Vol]Ordered By: Elieser Win on 05-27-2024 Potassium [Moles/Vol] 4.9 mmol/L 3.3-5.1 [facility] Potassium measurement (mass/ volume)Ordered By: Elieser Win on 05-27-2024 Potassium (Unsp spec) [Mass/Vol] 4.9 mmol/L 3.3-5.1 [facility] RBC Auto (Bld) [#/Vol]Ordere d By: Elieser Win on 05-27-2024 RBC (Bld) [#/Vol] 5.17 10*6/uL 4.6-6.2 [facility] Screening total cholesterol/ high density lipoprotein (HDL) cholesterol ratioOrdered By: Elieser Win on 05-27-2024 Cholesterol.total/Choles terol in HDL [Mass ratio] 2.28 {ratio} [facility] Serum creatinine measurement (mass/volume)Ordered By: Elieser Win on 05-27-2024 Creatinine [Mass/Vol] 0.85 mg/dL 0.70-1.20 [facility] Serum globulin measurementOr dered By: Elieser Win on 05-27-2024 Globulin (S) [Mass/Vol] 3.1 g/dL 2.2-4.2 [facility] Serum glucose measurement (m ass/volume)Ordered By: Elieser Win on 05-27-2024 Glucose [Mass/Vol] 95 mg/dL 70-99 [facility] Serum or plasma alanine burns otransferase (ALT) measurementOrdered By: Elieser Win on 05-27-2024 ALT [Catalytic activity/Vol] 14 U/L <47 [facility] Serum or plasma albumin ruchi urement (mass/volume)Ordered By: Elieser Win on 05-27-2024 Albumin [Mass/Vol] 4.2 g/dL 3.4-4.8 [facility] Serum or plasma albumin/glob ulin mass ratioOrdered By: Elieser Win on 05-27-2024 Albumin/Globulin [Mass ratio] 1.3 {ratio} 0.9-2.4 [facility] Serum or plasma alkaline mahesh sphatase measurementOrdered By: Elieser Win on 05-27-2024 ALP [Catalytic activity/Vol] 81 U/L 40-129 [facility] Serum or plasma calcium ruchi urement (mass/volume)Ordered By: Elieser Win on 05-27-2024 Calcium [Mass/Vol] 9.9 mg/dL 7.6-11.0 [facility] Serum or plasma cholesterol in HDL measurement (mass/volume)Ordered By: Elieser Win on 05-27-2024 Cholesterol in HDL [Mass/Vol] 65 mg/dL >40 [facility] Comment on above: National Cholesterol Education Program (NCEP) guidelines:<40 mg/dL: Low HDL-cholesterol (major risk factor for CHD)>= 60 mg/dL: High HDL-cholesterol (negative risk factor for CHD)HDL-cholesterol is affected by a number of factors, e.g. smoking, exercise, hormones, sex and age. Serum or plasma cholesterol measurement (mass/volume)Ordered By: Elieser Win on 05-27-2024 Cholesterol [Mass/Vol] 149 mg/dL <201 [facility] Comment on above: Cholesterol level, D esirable <200 mg/dLBorderline high cholesterol 200-239 mg/dLHigh cholesterol >=240 mg/dLRecommendations of the NCEP Adult Treatment Panel for the following risk-cutoff thresholds for the [place] population. Serum or plasma urea nitroge n measurement (mass/volume)Ordered By: Elieser Win on 05-27-2024 Urea nitrogen [Mass/Vol] 16 mg/dL 4-19 [facility] Sodium levelOrdered By: Farzad Win on 05-27-2024 Sodium [Moles/Vol] 143 mmol/L 133-145 [facility] Total proteinOrdered By: Дмитрий Win on 05-27-2024 Protein [Mass/Vol] 7.3 g/dL 5.9-8.4 [facility] Triglycerides measurementOrd ered By: Elieser Win on 05-27-2024 Triglyceride [Mass/Vol] 59 mg/dL <199 [facility] Comment on above: The drugs N-Acetylcy steine and Metamizole may falsely depress this assay. Normal range: <150 mg/dLBorderline High: 150-199 mg/dLHigh: 200-499 mg/dLVery High: >500 mg/dL White blood cell (WBC) count Ordered By: Elieser Win on 05-27-2024 WBC (Bld) [#/Vol] 6.7 10*3/uL 4.4-11.0 [facility] Pulmonary Visit Reporton Pulmonary Visit Report Normal [facility] CBC W/Diff, Automatedon Absolute Lymph 1.47 X10 3/uL Normal 0.83-4.51 [facility] Comment on above: Performed By: #### L 500.4100, L500.4050, L100.0100, L506.1000 ####[facility] [address] [place], [address] Absolute Neut 6.4 X10 3/uL Normal 2.0-7.7 [facility] Comment on above: Performed By: #### L 500.4100, L500.4050, L100.0100, L506.1000 ####[facility] [address] [place], [address] Basophils/100 WBC (Bld) 1.0 % Normal 0-1 [facility] Comment on above: Performed By: #### L 500.4100, L500.4050, L100.0100, L506.1000 ####[facility] [address] [place], [address] Eosinophils/100 WBC (Bld) 2.6 % Normal 0-5 [facility] Comment on above: Performed By: #### L 500.4100, L500.4050, L100.0100, L506.1000 ####[facility] [address] [place], [address] Erythrocyte distribution width (RBC) [Ratio] 13.2 % Normal 11.6-14.6 [facility] Comment on above: Performed By: #### L 500.4100, L500.4050, L100.0100, L506.1000 ####[facility] [address] [place], [address] Hematocrit (Bld) [Volume fraction] 51.2 % Normal 40-54 [facility] Comment on above: Performed By: #### L 500.4100, L500.4050, L100.0100, L506.1000 ####[facility] [address] [place], [address] Hemoglobin (Bld) [Mass/Vol] 16.6 g/dL High 13.0-16.5 [facility] Comment on above: Performed By: #### L 500.4100, L500.4050, L100.0100, L506.1000 ####[facility] [address] [place], [address] IG% 0.600 Normal 0.0-0.9 [facility] Comment on above: Result Comment: IG% - Immature Granulocytes (promyelocytes, myelocytes andmetamyelocytes) > 1% indicates that a LEFT SHIFT is Present. Performed By: #### L 500.4100, L500.4050, L100.0100, L506.1000 ####[facility] [address] [place], [address] Lymphocytes/100 WBC (Bld) 16.5 % Low 19-41 [facility] Comment on above: Performed By: #### L 500.4100, L500.4050, L100.0100, L506.1000 ####[facility] [address] [place], [address] MCH (RBC) [Entitic mass] 30.9 pg Normal 27.0-32.0 [facility] Comment on above: Performed By: #### L 500.4100, L500.4050, L100.0100, L506.1000 ####[facility] [address] [place], [address] MCHC (RBC) [Mass/Vol] 32.4 g/dL Normal 32-36 [facility] Comment on above: Performed By: #### L 500.4100, L500.4050, L100.0100, L506.1000 ####[facility] [address] [place], [address] MCV (RBC) [Entitic vol] 95.2 fL High 80-94 [facility] Comment on above: Performed By: #### L 500.4100, L500.4050, L100.0100, L506.1000 ####[facility] [address] [place], [address] Monocytes/100 WBC (Bld) 8.2 % Normal 0-10 [facility] Comment on above: Performed By: #### L 500.4100, L500.4050, L100.0100, L506.1000 ####[facility] [address] [place], [address] Neutrophils/100 WBC (Bld) 71.1 % High 47-70 [facility] Comment on above: Performed By: #### L 500.4100, L500.4050, L100.0100, L506.1000 ####[facility] [address] [place], [address] Nucleated RBC (Bld) [#/Vol] 0.2 10*3/uL Normal 0-5 [facility] Comment on above: Performed By: #### L 500.4100, L500.4050, L100.0100, L506.1000 ####[facility] [address] [place], [address] Platelet mean volume (Bld) [Entitic vol] 10.9 fL Normal 6.2-12.0 [facility] Comment on above: Performed By: #### L 500.4100, L500.4050, L100.0100, L506.1000 ####[facility] [address] [place], [address] Platelets (Bld) [#/Vol] 243 10*3/uL Normal 150-450 [facility] Comment on above: Performed By: #### L 500.4100, L500.4050, L100.0100, L506.1000 ####[facility] [address] [place], [address] RBC (Bld) [#/Vol] 5.38 10*6/uL Normal 4.6-6.2 [facility] Comment on above: Performed By: #### L 500.4100, L500.4050, L100.0100, L506.1000 ####[facility] [address] [place], [address] RDW SD 46.4 fl High 35.1-43.9 [facility] Comment on above: Performed By: #### L 500.4100, L500.4050, L100.0100, L506.1000 ####[facility] [address] [place], [address] WBC (Bld) [#/Vol] 8.9 10*3/uL Normal 4.4-11.0 [facility] Comment on above: Performed By: #### L 500.4100, L500.4050, L100.0100, L506.1000 ####[facility] [address] [place], [address] Comprehensive Metabolic Prof ilon 11-20-2023 Albumin [Mass/Vol] 3.8 g/dL Normal 3.2-5.0 [facility] Comment on above: Performed By: #### L 500.4100, L500.4050, L100.0100, L506.1000 ####[facility] [address] [place], [address] Albumin/Globulin [Mass ratio] 1.1 {ratio} Normal 0.9-2.4 [facility] Comment on above: Performed By: #### L 500.4100, L500.4050, L100.0100, L506.1000 ####[facility] [address] [place], [address] ALK P 78 U/L Normal 45-117 [facility] Comment on above: Performed By: #### L 500.4100, L500.4050, L100.0100, L506.1000 ####[facility] [address] [place], [address] ALT [Catalytic activity/Vol] 35 U/L Normal 16-61 [facility] Comment on above: Performed By: #### L 500.4100, L500.4050, L100.0100, L506.1000 ####[facility] [address] [place], [address] AST [Catalytic activity/Vol] 17 U/L Normal 15-37 [facility] Comment on above: Performed By: #### L 500.4100, L500.4050, L100.0100, L506.1000 ####[facility] [address] [place], [address] Bilirubin [Mass/Vol] 0.70 mg/dL Normal 0.20-1.00 [facility] Comment on above: Result Comment: For patients on eltrombopag therapy, use of Dimension [place] TBIL is not recommended. Performed By: #### L 500.4100, L500.4050, L100.0100, L506.1000 ####[facility] [address] [place], [address] BUN/CRE 15.2 RATIO Normal 10-20 [facility] Comment on above: Performed By: #### L 500.4100, L500.4050, L100.0100, L506.1000 ####[facility] [address] [place], [address] CA,Total 9.5 mg/dL Normal 8.5-10.1 [facility] Comment on above: Performed By: #### L 500.4100, L500.4050, L100.0100, L506.1000 ####[facility] [address] [place], [address] Chloride [Moles/Vol] 107 mmol/L Normal 98-107 [facility] Comment on above: Performed By: #### L 500.4100, L500.4050, L100.0100, L506.1000 ####[facility] [address] [place], [address] CO2 [Moles/Vol] 25.0 mmol/L Normal 21.0-32.0 [facility] Comment on above: Performed By: #### L 500.4100, L500.4050, L100.0100, L506.1000 ####[facility] [address] [place], [address] Creatinine [Mass/Vol] 1.05 mg/dL Normal 0.70-1.30 [facility] Comment on above: Result Comment: The validity of the calculated GFR GFRAA in patients over70 years has not been determined. Clinical correlation isessential. Performed By: #### L 500.4100, L500.4050, L100.0100, L506.1000 ####[facility] [address] [place], [address] EST GFR - AA 88 mL/min Normal >60 [facility] Comment on above: Result Comment: Afri can [place] GFR Calc Performed By: #### L 500.4100, L500.4050, L100.0100, L506.1000 ####[facility] [address] [place], [address] GAP 6 Normal 5-15 [facility] Comment on above: Performed By: #### L 500.4100, L500.4050, L100.0100, L506.1000 ####[facility] [address] [place], [address] GFR/1.73 sq M.predicted among non-blacks MDRD (S/P/Bld) [Vol rate/Area] 73 mL/min/{1.73_m2} Normal >60 [facility] Comment on above: Result Comment: Non- GFR Calc Performed By: #### L 500.4100, L500.4050, L100.0100, L506.1000 ####[facility] [address] [place], [address] Globulin (S) [Mass/Vol] 3.6 g/dL Normal 2.2-4.2 [facility] Comment on above: Performed By: #### L 500.4100, L500.4050, L100.0100, L506.1000 ####[facility] [address] [place], [address] Glucose [Mass/Vol] 90 mg/dL Normal 74-106 [facility] Comment on above: Performed By: #### L 500.4100, L500.4050, L100.0100, L506.1000 ####[facility] [address] [place], [address] Potassium [Moles/Vol] 4.0 mmol/L Normal 3.5-5.1 [facility] Comment on above: Performed By: #### L 500.4100, L500.4050, L100.0100, L506.1000 ####[facility] [address] [place], [address] Sodium [Moles/Vol] 138 mmol/L Normal 136-145 [facility] Comment on above: Performed By: #### L 500.4100, L500.4050, L100.0100, L506.1000 ####[facility] [address] [place], [address] T PROT 7.4 g/dL Normal 6.4-8.2 [facility] Comment on above: Performed By: #### L 500.4100, L500.4050, L100.0100, L506.1000 ####[facility] [address] [place], [address] Urea nitrogen [Mass/Vol] 16 mg/dL Normal 7-18 [facility] Comment on above: Performed By: #### L 500.4100, L500.4050, L100.0100, L506.1000 ####[facility] [address] [place], [address] Internal Medicine Office Vis iton 11-20-2023 Internal Medicine Office Visit Normal [facility] Lipid Profileon 11-20-2023 Cholesterol [Mass/Vol] 168 mg/dL Normal 200 [facility] Comment on above: Result Comment: <200 mg/dL Desirable 200-240 mg/dL Borderline >240 mg/dL High Risk Performed By: #### L 500.4100, L500.4050, L100.0100, L506.1000 ####[facility] [address] [place], [address] Cholesterol in HDL [Mass/Vol] 62 mg/dL Normal [facility] Comment on above: Result Comment: The drugs N-Acetylcysteine and Metamizole may falselydepress this assay. Reference Range HDL <40 mg/dL Low HDL Cholesterol HDL >or= 60 mg/dL High HDL Cholesterol Performed By: #### L 500.4100, L500.4050, L100.0100, L506.1000 ####[facility] [address] [place], [address] Cholesterol in LDL [Mass/Vol] 86 mg/dL Normal 0-130 [facility] Comment on above: Performed By: #### L 500.4100, L500.4050, L100.0100, L506.1000 ####[facility] [address] [place], [address] Cholesterol in VLDL [Mass/Vol] 20 mg/dL Normal 5-40 [facility] Comment on above: Performed By: #### L 500.4100, L500.4050, L100.0100, L506.1000 ####[facility] [address] [place], [address] Triglyceride [Mass/Vol] 101 mg/dL Normal [facility] Comment on above: Result Comment: The drugs N-Acetylcysteine and Metamizole may falselydepress this assay.Serum Triglycerides Reference Interval Normal <150 mg/dL Borderline high 150 - 199 mg/dL High 200 - 499 mg/dL Very High > or = 500 mg/dL Performed By: #### L 500.4100, L500.4050, L100.0100, L506.1000 ####[facility] [address] [place], [address] Vitamin D,25 Hydroxyon 11-19 Vitamin D 25-OH 70.2 ng/mL Normal [facility] Comment on above: Result Comment: Kaila min D 25(OH) Status Range Deficiency <20 ng/mL (50nmol/L) Insufficiency 20 - 30 ng/mL (50 - 75 nmol/L) Sufficiency 30 - 100 ng/mL (75 - 250 nmol/L) Toxicity >100 ng/mL (>250 nmol/L) Performed By: #### L 500.4100, L500.4050, L100.0100, L506.1000 ####[facility] [address] [place], [address] Pulmonary Visit Reporton Pulmonary Visit Report Normal [facility] Lumbar Spine 2 or 3 Viewson 10-16-2023 Lumbar Spine 2 or 3 Views Normal [facility] Orthopedic Visit Reporton Orthopedic Visit Report Normal [facility] HIP, UNI W/ Pelvis 2-3 Views on 09-24-2023 HIP, UNI W/ Pelvis 2-3 Views Normal [facility] Internal Medicine Office Vis iton 09-23-2023 Internal Medicine Office Visit Normal [facility] Low Dose CT Lung Screeningon 09-23-[address] Lung Screening Normal [facility] Basophil percentageOrdered B y: Josy Patrick on 10-29-2022 Creatinine [Mass/Vol] 1.0 mg/dL 0.70-1.30 [facility] No Panel InformationOrdered By: Josy Patrick on 10-29-2022 Bedside Estimated GFR (eGFR) > 60.0000 mL/min >60 [facility] Absolute lymphocyte counton 04-06-2021 Lymphocytes Auto (Unsp spec) [#/Vol] 1.24 10*3/uL 0.83-4.51 [facility] Work Phone: Basophil percentageon 2021 Basophils/100 WBC (Bld) 1.1 % 0-1 [facility] Work Phone: Bilirubin [Mass/Vol] 0.70 mg/dL 0.20-1.00 [facility] Work Phone: Comment on above: For patients on eltr ombopag therapy, use of Dimension [place] TBIL is not recommended. Chloride [Moles/Vol] 107 mmol/L 98-107 [facility] Work Phone: Eosinophils/100 WBC (Bld) 4.8 % 0-5 [facility] Work Phone: Glucose [Mass/Vol] 86 mg/dL 74-106 [facility] Work Phone: Neutrophils (Bld) [#/Vol] 6.8 10*3/uL 2.0-7.7 [facility] Work Phone: Neutrophils/100 WBC (Bld) 72.0 % 47-70 [facility] Work Phone: Potassium [Moles/Vol] 4.1 mmol/L 3.5-5.1 [facility] Work Phone: Protein [Mass/Vol] 7.2 g/dL 6.4-8.2 [facility] Work Phone: Sodium [Moles/Vol] 139 mmol/L 136-145 [facility] Work Phone: WBC (Bld) [#/Vol] 9.4 10*3/uL 4.4-11.0 [facility] Work Phone: Blood erythrocytes count (nu mber/volume)on 04-06-2021 RBC (Bld) [#/Vol] 4.82 10*6/uL 4.6-6.2 [facility] Work Phone: Blood hemoglobin measurement (mass/volume)on 04-06-2021 Hemoglobin (Bld) [Mass/Vol] 15.3 g/dL 13.0-16.5 [facility] Work Phone: Blood lymphocytes/100 leukoc yteson 04-06-2021 Lymphocytes/100 WBC (Bld) 13.1 % 19-41 [facility] Work Phone: Blood monocytes/100 leukocyt eson 04-06-2021 Monocytes/100 WBC (Bld) 8.6 % 0-10 [facility] Work Phone: Blood platelet mean volumeon 04-06-2021 Platelet mean volume (Bld) [Entitic vol] 9.7 fL 6.2-12.0 [facility] Work Phone: Determination of erythrocyte mean corpuscular volume (MCV)on 04-06-2021 MCV (RBC) [Entitic vol] 95.2 fL 80-94 [facility] Work Phone: Direct bilirubinon 2 Bilirubin.direct [Mass/Vol] 0.19 mg/dL 0.00-0.30 [facility] Work Phone: Hematocrit Auto (Bld) [Volum e fraction]on 04-06-2021 Hematocrit (Bld) [Volume fraction] 45.9 % 40-54 [facility] Work Phone: Laboratory - Chemistry and C hemistry - challengeon 04-06-2021 ALP [Catalytic activity/Vol] 81 U/L 45-117 [facility] Work Phone: ALT [Catalytic activity/Vol] 37 U/L 16-61 [facility] Work Phone: CO2 [Moles/Vol] 29.0 mmol/L 21.0-32.0 [facility] Work Phone: Globulin (S) [Mass/Vol] 3.4 g/dL 2.2-4.2 [facility] Work Phone: [phone] Urea nitrogen/Creatinine [Mass ratio] 13.7 mg/mg 10-20 [facility] Work Phone: Laboratory - Hematology and Cell countson 04-06-2021 Erythrocyte distribution width (RBC) [Entitic vol] 47.7 fL 35.1-43.9 [facility] Work Phone: Erythrocyte distribution width (RBC) [Ratio] 13.7 % 11.6-14.6 [facility] Work Phone: Immature granulocytes/100 WBC (Bld) 0.400 % 0.0-0.9 [facility] Work Phone: Comment on above: IG% - Immature Granu locytes (promyelocytes, myelocytes and metamyelocytes) > 1% indicates that a LEFT SHIFT is Present. MCH (RBC) [Entitic mass] 31.7 pg 27.0-32.0 [facility] Work Phone: Nucleated RBC/100 WBC (Bld) [Ratio] 0 % 0-5 [facility] Work Phone: MCHC Auto (RBC) [Mass/Vol]on 04-06-2021 MCHC (RBC) [Mass/Vol] 33.3 g/dL 32-36 [facility] Work Phone: No Panel Informationon 04-06 Estimated GFR (MDRD) Amer 109 mL/min >60 [facility] Work Phone: Comment on above: GFR Calc Estimated GFR (MDRD) Non-Af Amer 90 mL/min >60 [facility] Work Phone: Comment on above: Non- GFR Calc Platelets bldon 04-06-2021 Platelets (Bld) [#/Vol] 273 10*3/uL 150-450 [facility] Work Phone: Serum or plasma albumin ruchi urement (mass/volume)on 04-06-2021 Albumin [Mass/Vol] 3.8 g/dL 3.2-5.0 [facility] Work Phone: Serum or plasma calcium ruchi urement (mass/volume)on 04-06-2021 Calcium [Mass/Vol] 9.3 mg/dL 8.5-10.1 [facility] Work Phone: Serum or plasma creatinine m easurement (mass/volume)on 04-06-2021 Creatinine [Mass/Vol] 0.87 mg/dL 0.70-1.30 [facility] Work Phone: Comment on above: The validity of the calculated GFR & GFRAA in patients over 70 years has not been determined. Clinical correlation is essential. Serum or plasma urea nitroge n measurement (mass/volume)on 04-06-2021 Urea nitrogen [Mass/Vol] 12 mg/dL 7-18 [facility] Work Phone: Thin prep Papanicolaou smear with manual screeningon 04-06-2021 Thin prep Papanicolaou smear with manual screening 20 U/L 15-37 [facility] Work Phone: Thin prep Papanicolaou smear with manual screening 3 5-15 [facility] Work Phone: T-SPOT TBon 10-06-2019 NIL[NEG]CONTROL SPOT COUNT Passed Normal [facility] Comment on above: Performed By: #### B MP #### [place] [address] PANEL A SPOT COUNT [address] [facility] Comment on above: Performed By: #### B MP #### [place] [address] PANEL B SPOT COUNT [address] [facility] Comment on above: Performed By: #### B MP #### [place] [address] POS CONTROL SPOT COUNT Passed Normal [facility] Comment on above: Performed By: #### B MP #### [place] [address] T-SPOT.TB INTERP Negative Normal Normal Value: Negative [facility] Comment on above: Result Comment: A ne gative test result does not exclude the possibility of exposure to or infection with Mycobacterium tuberculosis (M. tuberculosis). Patients with recent exposure to TB infected individuals exhibiting a negative T-SPOT.TB result should be considered for retesting within 6 weeks or if other relevant clinical symptoms indicate. Results from T-SPOT.TB testing must be used in conjunction with each individual's epidemiological history, current medical status, and results of other diagnostic evaluations. The T-SPOT.TB test is qualitative and results are reported as positive, borderline or negative, given that the test controls perform as expected. In line with the Centers for Disease Control and Prevention's 2010 recommendation to report quantitative measurements alongside the qualitative result, the laboratory provides spot counts for informational purposes only. The T-SPOT.TB test should not be interpreted as a quantitative test. Performed By: #### B MP #### [place] [address] BASIC METABOLIC PANELon 07-03 23-2019 Anion gap [Moles/Vol] 11 mmol/L Normal 10 - 20 [facility] Comment on above: Performed By: #### B MP #### [place] [address] Calcium [Mass/Vol] 9.9 mg/dL Normal 8.6 - 10.[address] [facility] Comment on above: Performed By: #### B MP #### [address] [address] Chloride [Moles/Vol] 102 mmol/L Normal 98 - 107 [facility] Comment on above: Performed By: #### B MP #### [address] [address] Creatinine [Mass/Vol] 0.84 mg/dL Normal 0.50 - 1.30 [facility] Comment on above: Performed By: #### B MP #### [address] [address] GFR- AM. >60 Normal >60 [facility] Comment on above: Result Comment: CALC ULATIONS OF ESTIMATED GFR ARE PERFORMED USING THE MDRD STUDY EQUATION FOR THE IDMS-TRACEABLE CREATININE METHODS. CLIN CHEM 2007;53:766-72 Performed By: #### B MP #### [address] [address] GFR-NON AM. >60 Normal >60 [facility] Comment on above: Performed By: #### B MP #### [address] [address] Glucose [Mass/Vol] 94 mg/dL Normal 74 - [address] [facility] Comment on above: Performed By: #### B MP #### [address] [address] HCO3 (Bld) [Moles/Vol] 27 mmol/L Normal 21 - 32 [facility] Comment on above: Performed By: #### B MP #### [address] [address] Potassium [Moles/Vol] 4.9 mmol/L Normal 3.5 - 5.3 [facility] Comment on above: Performed By: #### B MP #### [address] [address] Sodium [Moles/Vol] 135 mmol/L Low 136 - [address] [facility] Comment on above: Performed By: #### B MP #### [address] [address] Urea nitrogen [Mass/Vol] 14 mg/dL Normal 6 - 23 [facility] Comment on above: Performed By: #### B MP #### [address] [address] CBC AND DIFFERENTIALon 09-30 Basophils (Bld) [#/Vol] 0.10 10*3/uL Normal 0.00 - 0.1 0 [facility] Comment on above: Performed By: #### C BCDF #### [address] [address] Basophils/100 WBC (Bld) 0.4 % Normal 0.0 - 2.0 [facility] Comment on above: Performed By: #### C BCDF #### [address] [address] Eosinophils (Bld) [#/Vol] 0.60 10*3/uL High 0.00 - 0.40 [facility] Comment on above: Performed By: #### C BCDF #### [address] [address] Eosinophils/100 WBC (Bld) 5.1 % Normal 0.0 - 6.0 [facility] Comment on above: Performed By: #### C BCDF #### [address] [address] Erythrocyte distribution width (RBC) [Ratio] 14.6 % High 11.5 - 14.5 [facility] Comment on above: Performed By: #### C BCDF #### [address] [address] Hematocrit (Bld) [Volume fraction] 47.4 % Normal 41.0 - 52.0 [facility] Comment on above: Performed By: #### C BCDF #### [address] [address] Hemoglobin (Bld) [Mass/Vol] 16.0 g/dL Normal 13.5 - 17.5 [facility] Comment on above: Performed By: #### C BCDF #### [address] [address] Lymphocytes (Bld) [#/Vol] 1.10 10*3/uL Normal 0.80 - 3.00 [facility] Comment on above: Performed By: #### C BCDF #### [address] [address] Lymphocytes/100 WBC (Bld) 8.9 % Normal 13.0 - 44.0 [facility] Comment on above: Performed By: #### C BCDF #### [address] [address] MCHC (RBC) [Mass/Vol] 33.8 g/dL Normal 32.0 - 36.0 [facility] Comment on above: Performed By: #### C BCDF #### [address] [address] MCV (RBC) [Entitic vol] 97 fL Normal 80 - 100 [facility] Comment on above: Performed By: #### C BCDF #### [address] [address] Monocytes (Bld) [#/Vol] 1.00 10*3/uL High 0.05 - 0.8 0 [facility] Comment on above: Performed By: #### C BCDF #### [address] [address] Monocytes/100 WBC (Bld) 8.4 % Normal 2.0 - 10.0 [facility] Comment on above: Performed By: #### C BCDF #### [address] [address] Neutrophils (Bld) [#/Vol] 9.40 10*3/uL High 1.60 - 5.50 [facility] Comment on above: Result Comment: Perc ent differential counts (%) should be interpreted in the context of the absolute cell counts (cells/L). Performed By: #### C BCDF #### [address] [address] Neutrophils/100 WBC (Bld) 77.2 % Normal 40.0 - 80.0 [facility] Comment on above: Performed By: #### C BCDF #### [address] [address] Nucleated RBC/100 WBC (Bld) [Ratio] 0.1 /100 WBC Normal [facility] Comment on above: Performed By: #### C BCDF #### [place] [id number] Platelets (Bld) [#/Vol] 316 10*3/uL Normal 150 - 450 [facility] Comment on above: Performed By: #### C BCDF #### [place] [id number] RBC (Bld) [#/Vol] 4.89 x10E12/L Normal 4.50 - 5.90 [facility] Comment on above: Performed By: #### C BCDF #### [place] [id number] WBC (Bld) [#/Vol] 12.1 10*3/uL High 4.4 - 11.3 [facility] Comment on above: Performed By: #### C BCDF #### [place] [address] COMPREHENSIVE PANELon 2019 Albumin [Mass/Vol] 4.2 g/dL Normal 3.4 - 5.[address] [facility] Comment on above: Performed By: #### C MP #### [place] [id number] ALP [Catalytic activity/Vol] 76 U/L Normal 33 - 136 [facility] Comment on above: Performed By: #### C MP #### [place] [id number] ALT [Catalytic activity/Vol] 23 U/L Normal 10 - 52 [facility] Comment on above: Result Comment: Martita ents treated with Sulfasalazine may generate falsely decreased results for ALT. Performed By: #### C MP #### [place] [id number] Anion gap [Moles/Vol] 12 mmol/L Normal 10 - 20 [facility] Comment on above: Performed By: #### C MP #### [place] [id number] AST [Catalytic activity/Vol] 18 U/L Normal 9 - 39 [facility] Comment on above: Performed By: #### C MP #### [address] [address] Bilirubin [Mass/Vol] 0.9 mg/dL Normal 0.0 - 1.2 [facility] Comment on above: Performed By: #### C MP #### [address] [address] Calcium [Mass/Vol] 9.6 mg/dL Normal 8.6 - 10.[address] [facility] Comment on above: Performed By: #### C MP #### [address] [address] Chloride [Moles/Vol] 103 mmol/L Normal 98 - 107 [facility] Comment on above: Performed By: #### C MP #### [address] [address] Creatinine [Mass/Vol] 0.83 mg/dL Normal 0.50 - 1.30 [facility] Comment on above: Performed By: #### C MP #### [address] [address] GFR- AM. >60 Normal >60 [facility] Comment on above: Result Comment: CALC ULATIONS OF ESTIMATED GFR ARE PERFORMED USING THE MDRD STUDY EQUATION FOR THE IDMS-TRACEABLE CREATININE METHODS. CLIN CHEM 2007;53:766-72 Performed By: #### C MP #### [address] [address] GFR-NON AM. >60 Normal >60 [facility] Comment on above: Performed By: #### C MP #### [address] [address] Glucose [Mass/Vol] 86 mg/dL Normal 74 - [address] [facility] Comment on above: Performed By: #### C MP #### [address] [address] HCO3 (Bld) [Moles/Vol] 25 mmol/L Normal 21 - 32 [facility] Comment on above: Performed By: #### C MP #### [address] [address] Potassium [Moles/Vol] 3.9 mmol/L Normal 3.5 - 5.3 [facility] Comment on above: Performed By: #### C MP #### [address] [address] Protein [Mass/Vol] 7.2 g/dL Normal 6.4 - 8.[address] [facility] Comment on above: Performed By: #### C MP #### [address] [address] Sodium [Moles/Vol] 136 mmol/L Normal 136 - [address] [facility] Comment on above: Performed By: #### C MP #### [address] [address] Urea nitrogen [Mass/Vol] 14 mg/dL Normal 6 - 23 [facility] Comment on above: Performed By: #### C MP #### [address] [address] HEMOGLOBIN A1Con 10-01-2019 HbA1c (Bld) [Mass fraction] 120 MG/DL Normal [facility] Comment on above: Performed By: #### H BA1E #### [address] [address] HbA1c (Bld) [Mass fraction] 5.8 % Normal [facility] Comment on above: Result Comment: Diag nosis of Diabetes-Adults Non-Diabetic: < or = 5.6% Increased risk for developing diabetes: 5.7-6.4% Diagnostic of diabetes: > or = 6.5% . Monitoring of Diabetes Age (y) Therapeutic Goal (%) Adults: >18 <7.0 Pediatrics: 13-18 <7.5 7-12 <8.0 0- 6 7.5-8.5 [place] [employer]. Diabetes Care 33(S1), Mar 2009. Performed By: #### H BA1E #### [address] [address] HEPATIC FUNCTION PANELon Albumin [Mass/Vol] 4.2 g/dL Normal 3.4 - 5.[address] [facility] Comment on above: Performed By: #### B MP #### [address] [address] ALP [Catalytic activity/Vol] 76 U/L Normal 33 - 136 [facility] Comment on above: Performed By: #### B MP #### [address] [address] ALT [Catalytic activity/Vol] 23 U/L Normal 10 - 52 [facility] Comment on above: Result Comment: Martita ents treated with Sulfasalazine may generate falsely decreased results for ALT. Performed By: #### B MP #### [address] [address] AST [Catalytic activity/Vol] 17 U/L Normal 9 - 39 [facility] Comment on above: Performed By: #### B MP #### [address] [address] Bilirubin [Mass/Vol] 0.9 mg/dL Normal 0.0 - 1.2 [facility] Comment on above: Performed By: #### B MP #### [address] [address] Bilirubin.direct [Mass/Vol] 0.2 mg/dL Normal 0.0 - 0.3 [facility] Comment on above: Performed By: #### B MP #### [address] [address] Protein [Mass/Vol] 7.0 g/dL Normal 6.4 - 8.[address] [facility] Comment on above: Performed By: #### B MP #### [address] [address] LIPID PANEL (CORONARY RISK 2 )on 10-01-2019 Cholesterol [Mass/Vol] 152 mg/dL Normal 0 - 199 [facility] Comment on above: Result Comment: . AGE DESIRABLE BORDERLINE HIGH HIGH 0-19 Y 0 - 169 170 - 199 >/= 200 20-24 Y 0 - 189 190 - 224 >/= 225 >24 Y 0 - 199 200 - 239 >/= 240 All ranges are based on fasting samples. Specific therapeutic targets will vary based on patient-specific cardiac risk. . Pediatric guidelines reference:Pediatrics 2011, 128(S5). Adult guidelines reference: NCEP ATPIII Guidelines, PAMELA 2001, 258:2486-97 . Venipuncture immediately after or during the administration of Metamizole may lead to falsely low results. Testing should be performed immediately prior to Metamizole dosing. Performed By: #### L IPID #### [address] [address] Cholesterol in HDL [Mass/Vol] 58.0 mg/dL Normal [facility] Comment on above: Result Comment: . AGE VERY LOW LOW NORMAL HIGH 0-19 Y < 35 < 40 40-45 ---- 20-24 Y ---- < 40 >45 ---- >24 Y ---- < 40 40-60 >60 . Performed By: #### L IPID #### [address] [address] Cholesterol in LDL [Mass/Vol] 75 mg/dL Normal 0 - 99 [facility] Comment on above: Result Comment: . NEAR BORD AGE DESIRABLE OPTIMAL HIGH HIGH VERY HIGH 0-19 Y 0 - 109 --- 110-129 >/= 130 ---- 20-24 Y 0 - 119 --- 120-159 >/= 160 ---- >24 Y 0 - 99 100-129 130-159 160-189 >/=190 . Performed By: #### L IPID #### [address] [address] Cholesterol in VLDL [Mass/Vol] 19 mg/dL Normal 0 - 40 [facility] Comment on above: Performed By: #### L IPID #### [address] [address] Cholesterol.total/Choles terol in HDL [Mass ratio] 2.6 {ratio} Normal [facility] Comment on above: Result Comment: REF VALUES DESIRABLE < 3.4 HIGH RISK > 5.0 Performed By: #### L IPID #### [address] [address] Triglyceride [Mass/Vol] 94 mg/dL Normal 0 - 149 [facility] Comment on above: Result Comment: . AGE DESIRABLE BORDERLINE HIGH HIGH VERY HIGH 0 D-90 D 19 - 174 ---- ---- ---- 91 D- 9 Y 0 - 74 75 - 99 >/= 100 ---- 10-19 Y 0 - 89 90 - 129 >/= 130 ---- 20-24 Y 0 - 114 115 - 149 >/= 150 ---- >24 Y 0 - 149 150 - 199 200- 499 >/= 500 . Venipuncture immediately after or during the administration of Metamizole may lead to falsely low results. Testing should be performed immediately prior to Metamizole dosing. Performed By: #### L IPID #### [address] [address] MAGNESIUMon 10-01-2019 Magnesium [Mass/Vol] 2.24 mg/dL Normal 1.60 - 2.40 [facility] Comment on above: Performed By: #### M G #### [address] [address] MYCOBACTERIUM TB COMPLEX DET ECTION;RIFAMPIN RESISTANCE, PCRon 10-01-2019 MTB RIFAMPIN,PCR Canceled [facility] Comment on above: Order Comment: TEST MYCOBACTERIUM TB COMPLEX DETECTION;RIFAMPIN RESISTANCE, PCR WAS CANCELLED, 10/01/2019 09:03 wrong test ordered. Performed By: #### T BRIF #### [facility] [address] [place] [address] MTB/RIFAMPIN INTERPRETATION Canceled [facility] Comment on above: Order Comment: TEST MYCOBACTERIUM TB COMPLEX DETECTION;RIFAMPIN RESISTANCE, PCR WAS CANCELLED, 10/01/2019 09:03 wrong test ordered. Performed By: #### T BRIF #### [facility] [address] [place] [address] MYCOBACTERIUM TUBERCULOSIS,PCR Canceled [facility] Comment on above: Order Comment: TEST MYCOBACTERIUM TB COMPLEX DETECTION;RIFAMPIN RESISTANCE, PCR WAS CANCELLED, 10/01/2019 09:03 wrong test ordered. Performed By: #### T BRIF #### [facility] [address] [place] [address] Lab Specimen Source [facility] Comment on above: Order Comment: TEST MYCOBACTERIUM TB COMPLEX DETECTION;RIFAMPIN RESISTANCE, PCR WAS CANCELLED, 10/01/2019 09:03 wrong test ordered. Performed By: #### T BRIF #### [facility] [address] [place] [address] TSHon 10-01-2019 TSH Qn 1.08 m[IU]/L Normal 0.44 - 3.98 [facility] Comment on above: Result Comment: TSH testing is performed using different testing methodology at [facility] than at other [facility]. Direct result comparisons should only be made within the same method. Performed By: #### B MP #### [address] [address] BASIC METABOLIC PANELon 10-2 Anion gap [Moles/Vol] 9 mmol/L Low 10 - 20 [facility] Comment on above: Performed By: #### B MP #### [address] [address] Calcium [Mass/Vol] 9.1 mg/dL Normal 8.6 - 10.[address] [facility] Comment on above: Performed By: #### B MP #### [address] [address] Chloride [Moles/Vol] 106 mmol/L Normal 98 - 107 [facility] Comment on above: Performed By: #### B MP #### [address] [address] Creatinine [Mass/Vol] 0.80 mg/dL Normal 0.50 - 1.30 [facility] Comment on above: Performed By: #### B MP #### [address] [address] GFR- AM. >60 Normal >60 [facility] Comment on above: Result Comment: CALC ULATIONS OF ESTIMATED GFR ARE PERFORMED USING THE MDRD STUDY EQUATION FOR THE IDMS-TRACEABLE CREATININE METHODS. CLIN CHEM 2007;53:766-72 Performed By: #### B MP #### [address] [address] GFR-NON AM. >60 Normal >60 [facility] Comment on above: Performed By: #### B MP #### [address] [address] Glucose [Mass/Vol] 147 mg/dL High 74 - [address] [facility] Comment on above: Performed By: #### B MP #### [address] [address] HCO3 (Bld) [Moles/Vol] 28 mmol/L Normal 21 - 32 [facility] Comment on above: Performed By: #### B MP #### [address] [address] Potassium [Moles/Vol] 3.8 mmol/L Normal 3.5 - 5.3 [facility] Comment on above: Performed By: #### B MP #### [address] [address] Sodium [Moles/Vol] 139 mmol/L Normal 136 - [address] [facility] Comment on above: Performed By: #### B MP #### [address] [address] Urea nitrogen [Mass/Vol] 12 mg/dL Normal 6 - 23 [facility] Comment on above: Performed By: #### B MP #### [address] [address] CBC AND DIFFERENTIALon 01-08 Basophils (Bld) [#/Vol] 0.10 10*3/uL Normal 0.00 - 0.1 0 [facility] Comment on above: Performed By: #### C BCDF #### [address] [address] Basophils/100 WBC (Bld) 0.7 % Normal 0.0 - 2.0 [facility] Comment on above: Performed By: #### C BCDF #### [address] [address] Eosinophils (Bld) [#/Vol] 0.60 10*3/uL High 0.00 - 0.40 [facility] Comment on above: Performed By: #### C BCDF #### [address] [address] Eosinophils/100 WBC (Bld) 6.6 % Normal 0.0 - 6.0 [facility] Comment on above: Performed By: #### C BCDF #### [address] [address] Erythrocyte distribution width (RBC) [Ratio] 14.9 % High 11.5 - 14.5 [facility] Comment on above: Performed By: #### C BCDF #### [address] [address] Hematocrit (Bld) [Volume fraction] 43.9 % Normal 41.0 - 52.0 [facility] Comment on above: Performed By: #### C BCDF #### [address] [address] Hemoglobin (Bld) [Mass/Vol] 14.9 g/dL Normal 13.5 - 17.5 [facility] Comment on above: Performed By: #### C BCDF #### [address] [address] Lymphocytes (Bld) [#/Vol] 1.20 10*3/uL Normal 0.80 - 3.00 [facility] Comment on above: Performed By: #### C BCDF #### [address] [address] Lymphocytes/100 WBC (Bld) 13.8 % Normal 13.0 - 44.0 [facility] Comment on above: Performed By: #### C BCDF #### [address] [address] MCHC (RBC) [Mass/Vol] 33.8 g/dL Normal 32.0 - 36.0 [facility] Comment on above: Performed By: #### C BCDF #### [address] [address] MCV (RBC) [Entitic vol] 98 fL Normal 80 - 100 [facility] Comment on above: Performed By: #### C BCDF #### [address] [address] Monocytes (Bld) [#/Vol] 0.60 10*3/uL Normal 0.05 - 0.8 0 [facility] Comment on above: Performed By: #### C BCDF #### [address] [address] Monocytes/100 WBC (Bld) 7.5 % Normal 2.0 - 10.0 [facility] Comment on above: Performed By: #### C BCDF #### [address] [address] Neutrophils (Bld) [#/Vol] 6.00 10*3/uL High 1.60 - 5.50 [facility] Comment on above: Performed By: #### C BCDF #### [address] [address] Neutrophils/100 WBC (Bld) 71.4 % Normal 40.0 - 80.0 [facility] Comment on above: Performed By: #### C BCDF #### [address] [address] Nucleated RBC/100 WBC (Bld) [Ratio] 0.1 /100 WBC Normal [facility] Comment on above: Performed By: #### C BCDF #### [address] [address] Platelets (Bld) [#/Vol] 284 10*3/uL Normal 150 - 450 [facility] Comment on above: Performed By: #### C BCDF #### [address] [address] RBC (Bld) [#/Vol] 4.51 x10E12/L Normal 4.50 - 5.90 [facility] Comment on above: Performed By: #### C BCDF #### [address] [address] WBC (Bld) [#/Vol] 8.4 10*3/uL Normal 4.4 - 11.[address] [facility] Comment on above: Performed By: #### C BCDF #### [address] [address] HEPATIC FUNCTION PANELon Albumin [Mass/Vol] 3.9 g/dL Normal 3.4 - 5.[address] [facility] Comment on above: Performed By: #### H EPFP #### [address] [address] ALP [Catalytic activity/Vol] 72 U/L Normal 33 - 136 [facility] Comment on above: Performed By: #### H EPFP #### [address] [address] ALT [Catalytic activity/Vol] 14 U/L Normal 10 - 52 [facility] Comment on above: Result Comment: Martita ents treated with Sulfasalazine may generate falsely decreased results for ALT. Performed By: #### H EPFP #### [address] [address] AST [Catalytic activity/Vol] 12 U/L Normal 9 - 39 [facility] Comment on above: Performed By: #### H EPFP #### [address] [address] Bilirubin [Mass/Vol] 0.7 mg/dL Normal 0.0 - 1.2 [facility] Comment on above: Performed By: #### H EPFP #### [address] [address] Bilirubin.direct [Mass/Vol] 0.2 mg/dL Normal 0.0 - 0.3 [facility] Comment on above: Performed By: #### H EPFP #### [address] [address] Protein [Mass/Vol] 6.5 g/dL Normal 6.4 - 8.[address] [facility] Comment on above: Performed By: #### H EPFP #### [address] [address] US ELASTOGRAPHY LIVER W/ABD LTDon 07-29-2018 US ELASTOGRAPHY LIVER W/ABD LTD ORIGINAL Ultrasound RIGHT upper quadrant and Hepatic elastography CLINICAL STATEMENT:METHOTREX ATE, COMPARISON: None FINDINGS: The gallbladder is moderately distended with echogenic foci layering dependently within without shadowing consistent with gallstones and sludge.. There is no intra or extrahepatic bile duct dilatation. The common duct is obscured by bowel gas. A short segment of the duct is normal at 3 mm. The liver is unremarkable The pancreas is obscured by bowel gas. No ascites is seen in the RIGHT upper quadrant. Limited survey images of the RIGHT kidney is grossly normal echotexture with a length of 12.3 cm Elastography of the liver was performed in the right lobe: Median velocity: 1.10 m/s IQR/median ratio: 0.17 (Value less than or equal to 0.3 should be seen to ensure exam adequacy.) IMPRESSION: Cholelithiasis. No significant fibrosis. \H\SRU Consensus of Suggested Thresholds in Patients with Hepatitis C (Based upon Siemens pSWE):\N\ Median Velocity: Recommendation: < 1.2 m/s (Seimens No Clinically Significant Fibrosis: METAVIR Stage 2.2 m/s Advanced Fibrosis and/or Cirrhosis: METAVIR Stage F4 and Some F3 Clinically significant Fibrosis \H\ ____ \N\ Elastography Assessment of Liver Fibrosis: Society of Radiologists in Ultrasound Consensus Conference Statement Aron Fierro, Evelyn Mack, Hardik Handy, Apolinar Byrd, Samira Rao, Herrera Campos, Ty Raman, Reynaldo Nelson, Luz Nielsen, Jerri Bee, and Jerri Sawant Radiology 2015 276:3, [phone] Interpreted By: Myrna Velazquez MD Preliminary Report By: Myrna Velazquez MD Electronically Signed By: Myrna Velazquez MD Dictated Date: 07/29/2018 2:08:28 PM Prelim Date: 07/29/2018 2:08:28 PM Sign Date: 07/29/2018 2:12:12 PM Normal [facility] ([place]) Auto Diffon 06-24-2018 Basophils #/vol (Bld) 0.1 E3/mcL Normal 0.0-0.2 [facility] Comment on above: Order Comment: Order Added by Discern Expert. Performed By: #### 2 [id number] #### VANDANA [facility] [address] [place] [address] Basophils/100 WBC (Bld) 0.5 % Normal 0.0-2.0 [facility] Comment on above: Order Comment: Order Added by Discern Expert. Performed By: #### 2 [id number] #### V[facility]DANA [facility] [address] [place] [address] Eos Absolute 0.1 E3/mcL Normal 0.0-0.7 [facility] Comment on above: Order Comment: Order Added by Discern Expert. Performed By: #### 2 [id number] #### V[facility]DANA [facility] [address] [place] [address] Eosinophils/100 WBC (Bld) 1.2 % Normal 0.0-11.0 [facility] Comment on above: Order Comment: Order Added by Discern Expert. Performed By: #### 2 [id number] #### V[facility]DANA [employer] [address] [place] [address] Lymphocytes #/vol (Bld) 1.3 E3/mcL Normal 1.2-3.4 [facility] Comment on above: Order Comment: Order Added by Discern Expert. Performed By: #### 2 [id number] #### [facility]NA [facility] [address] [place] [address] Lymphocytes/100 WBC (Bld) 12.2 % Low 20.0-55.0 [facility] Comment on above: Order Comment: Order Added by Discern Expert. Performed By: #### 2 148884 #### [facility] [address] [place] [address] Yell Absolute 0.6 E3/mcL Normal 0.0-0.7 [facility] Comment on above: Order Comment: Order Added by Discern Expert. Performed By: #### 2 120285 #### [facility] [address] [place] [address] Monocytes/100 WBC (Bld) 6.1 % Normal 0.0-10.0 [facility] Comment on above: Order Comment: Order Added by Discern Expert. Performed By: #### 2 [id number] #### [facility] [address] [place] [address] Neutro Absolute 8.2 E3/mcL High 1.4-6.5 [facility] Comment on above: Order Comment: Order Added by Discern Expert. Performed By: #### 2 896062 #### VANDANA Decker [facility] [place] 2177205 Neutro Auto 80.0 % High 37.0-75.0 [facility] Comment on above: Order Comment: Order Added by Discern Expert. Performed By: #### 2 [id number] #### VANDANA Decker [facility] [place] 2177205 CBC w/ Auto Diffon 9 Erythrocyte distribution width Ratio (RBC) 14.7 % High 11.5-14.5 [facility] Comment on above: Performed By: #### 2 258470 #### [place] [id number] Hematocrit Volume Fraction (Bld) 45.1 % Normal 42.0-52.0 [facility] Comment on above: Performed By: #### 2 [id number] #### VANDANA Decker [address] [place], [place] [address] Hemoglobin mass conc (Bld) 15.3 g/dL Normal 13.5-18.0 [facility] Comment on above: Performed By: #### 2 670405 #### [place] [address] MCH Entitic mass (RBC) 32.8 pg High 27.0-31.0 [facility] Comment on above: Performed By: #### 2 406096 #### [place] [address] MCHC mass conc (RBC) 34.0 g/dL Normal 33.0-37.[address] [facility] Comment on above: Performed By: #### 2 626954 #### VANDANA Decker [facility] [place] [address] MCV Entitic volume (RBC) 96.4 fL Normal 78.0-100.0 [facility] Comment on above: Performed By: #### 2 796066 #### [place] [address] [place] [address] Platelet mean volume Entitic volume (Bld) 8.7 fL Normal 7.4-11.0 [facility] Comment on above: Performed By: #### 2 199952 #### VANDANA [facility]anChem [address] [place] [address] Platelets #/vol (Bld) 245 E3/mcL Normal 130-400 [facility] Comment on above: Performed By: #### 2 743140 #### VANDANA EstebanChem [address] [place] [address] RBC #/vol (Bld) 4.68 E6/mcL Normal 3.90-6.10 [facility] Comment on above: Performed By: #### 2 965106 #### VANDANA [facility]an[facility] [address] [place] [address] WBC #/vol (Bld) 10.3 E3/mcL Normal 3.6-11.0 [facility] Comment on above: Performed By: #### 2 [id number] #### VANDANA [facility]an[facility] [address] [place] [id number] Lab Miscellaneouson 06-21-19 19 Status See Ref Lab Report Normal [facility] Comment on above: Performed By: #### 2 [id number] #### VANDANA EstebanHemo [address] [place] [address] Italo 06-17-2018 ALT enzyme act/vol 32 Int._Unit/L Normal 10-52 [facility] Comment on above: Performed By: #### 2 [id number] #### VANDANA [facility] [address] [place] [address] Jorge 06-17-2018 AST enzyme act/vol 18 Int._Unit/L Normal 9-39 [facility] Comment on above: Performed By: #### 2 922246 #### [facility]DANA [facility] [address] [place] [address] BMPon 06-17-2018 Anion gap molar conc 8 mmol/L Low 10-[address] [facility] Comment on above: Performed By: #### 2 301496 #### VANDANA EstebanHemo [address] [place] [address] Calcium mass conc 9.6 mg/dL Normal 8.6-10.3 [facility] Comment on above: Performed By: #### 2 858748 #### VANDANA EstebanHemo [address] [place] [address] Chloride molar conc 104 mmol/L Normal 98-107 [facility] Comment on above: Performed By: #### 2 [id number] #### VANDANA EstebanHemo [address] [place] [address] CO2 molar conc 29.0 mmol/L Normal 21.0-32.0 [facility] Comment on above: Performed By: #### 2 987195 #### VANDANA EstebanHemo [address] [place] [address] Creatinine mass conc 0.9 mg/dL Normal 0.5-1.[address] [facility] Comment on above: Performed By: #### 2 573999 #### VANDANA EstebanHemo [address] [place] [address] Glucose mass conc 117 mg/dL High 70-99 [facility] Comment on above: Performed By: #### 2 204659 #### VANDANA EstebanHemo [address] [place] [address] Potassium molar conc 4.1 mmol/L Normal 3.5-5.[address] [facility] Comment on above: Performed By: #### 2 635647 #### VANDANA EstebanHemo [address] [place] [address] Sodium molar conc 137 mmol/L Normal 136-145 [facility] Comment on above: Performed By: #### 2 844546 #### VANDANA EstebanHemo [address] [place] [address] Urea nitrogen mass conc 20 mg/dL Normal 6-23 [facility] Comment on above: Performed By: #### 2 556074 #### VANDANA EstebanHemo [address] [place] [address] Urea nitrogen/Creatinine mass ratio 22.2 ratio Normal 5.4-30.0 [facility] Comment on above: Performed By: #### 2 [id number] #### VANDANA EstebanHemo [address] [place] [address] Lab Miscellaneouson 06-18-19 Test Name QFT Kit Normal [facility] Comment on above: Performed By: #### 2 659756 #### VANDANA RemHemo [address] [place] [address] eGFRon 06-17-2018 GFR/1.73 sq M predicted among non-blacks MDRD vol rate/area (S/P/Bld) mL/min/{1.73_m2} Normal [facility] Comment on above: Order Comment: Order added by Discern Expert. Performed By: #### 2 [id number] #### VANDANA [facility] [address] [place] [address] Auto Diffon 02-27-2018 Basophils #/vol (Bld) 0.1 E3/mcL Normal 0.0-0.2 [facility] Comment on above: Order Comment: Order Added by Discern Expert. Performed By: #### 2 677288 #### VANDANA RemHemo [address] [place] [address] Basophils/100 WBC (Bld) 1.2 % Normal 0.0-2.0 [facility] Comment on above: Order Comment: Order Added by Discern Expert. Performed By: #### 2 [id number] #### VANDANA RemHemo [address] [place] [address] Eos Absolute 0.9 E3/mcL High 0.0-0.7 [facility] Comment on above: Order Comment: Order Added by Discern Expert. Performed By: #### 2 559074 #### VANDANA RemHemo [address] [place] [address] Eosinophils/100 WBC (Bld) 11.2 % High 0.0-11.0 [facility] Comment on above: Order Comment: Order Added by Discern Expert. Performed By: #### 2 [id number] #### VANDANA RemHemo [address] [place] [address] Lymphocytes #/vol (Bld) 1.3 E3/mcL Normal 1.2-3.4 [facility] Comment on above: Order Comment: Order Added by Discern Expert. Performed By: #### 2 441109 #### VANDANA RemHemo [address] [place] [address] Lymphocytes/100 WBC (Bld) 16.2 % Low 20.0-55.0 [facility] Comment on above: Order Comment: Order Added by Discern Expert. Performed By: #### 2 493261 #### VANDANA EstebanHemo [address] [place] [address] Yell Absolute 0.7 E3/mcL Normal 0.0-0.7 [facility] Comment on above: Order Comment: Order Added by Discern Expert. Performed By: #### 2 [id number] #### VANDANA EstebanHemo [address] [place] [id number] Monocytes/100 WBC (Bld) 8.6 % Normal 0.0-10.0 [facility] Comment on above: Order Comment: Order Added by Discern Expert. Performed By: #### 2 [id number] #### VANDANA EstebanHemo [address] [place] [id number] Neutro Absolute 5.2 E3/mcL Normal 1.4-6.5 [facility] Comment on above: Order Comment: Order Added by Discern Expert. Performed By: #### 2 182676 #### VANDANA EstebanHemo [address] [place] [address] Neutro Auto 62.8 % Normal 37.0-75.0 [facility] Comment on above: Order Comment: Order Added by Discern Expert. Performed By: #### 2 173134 #### VANDANA EstebanHemo [address] [place] [address] BMPon 02-27-2018 Anion gap molar conc 9 mmol/L Low 10-[address] [facility] Comment on above: Performed By: #### 2 [id number] #### VANDANA EstebanHemo [address] [place] 2[address] Calcium mass conc 9.8 mg/dL Normal 8.6-10.3 [facility] Comment on above: Performed By: #### 2 213338 #### VANDANA EstebanHemo [address] [place] [address] Chloride molar conc 104 mmol/L Normal 98-107 [facility] Comment on above: Performed By: #### 2 624560 #### VANDANA EstebanHemo [address] [place] 2177[address] CO2 molar conc 27.0 mmol/L Normal 21.0-32.0 [facility] Comment on above: Performed By: #### 2 769187 #### VANDANA EstebanHemo [address] [place] [address] Creatinine mass conc 0.9 mg/dL Normal 0.5-1.[address] [facility] Comment on above: Performed By: #### 2 187784 #### VANDANA EstebanHemo [address] [place] [address] Glucose mass conc 94 mg/dL Normal 70-99 [facility] Comment on above: Performed By: #### 2 754087 #### VANDANA EstebanHemo [address] [place] [address] Potassium molar conc 4.1 mmol/L Normal 3.5-5.[address] [facility] Comment on above: Performed By: #### 2 [id number] #### VANDANA EstebanHemo [address] [place] [address] Sodium molar conc 136 mmol/L Normal 136-145 [facility] Comment on above: Performed By: #### 2 [id number] #### VANDANA EstebanHemo [address] [place] [address] Urea nitrogen mass conc 16 mg/dL Normal 6-23 [facility] Comment on above: Performed By: #### 2 [id number] #### VANDANA EstebanHemo [address] [place] [address] Urea nitrogen/Creatinine mass ratio 17.8 ratio Normal 5.4-30.0 [facility] Comment on above: Performed By: #### 2 773030 #### VANDANA EstebanHemo [address] [place] [address] CBC w/ Auto Diffon 8 Erythrocyte distribution width Ratio (RBC) 13.8 % Normal 11.5-14.5 [facility] Comment on above: Performed By: #### 2 [id number] #### VANDANA EstebanHemo [address] [place] [address] Hematocrit Volume Fraction (Bld) 48.9 % Normal 42.0-52.0 [facility] Comment on above: Performed By: #### 2 897574 #### VANDANA EstebanHemo [address] [place] [address] Hemoglobin mass conc (Bld) 16.4 g/dL Normal 13.5-18.0 [facility] Comment on above: Performed By: #### 2 911708 #### VANDANA EstebanHemo [address] [place] [address] MCH Entitic mass (RBC) 32.4 pg High 27.0-31.0 [facility] Comment on above: Performed By: #### 2 [id number] #### VANDANA RemHemo [address] [place] [id number] MCHC mass conc (RBC) 33.5 g/dL Normal 33.0-37.[address] [facility] Comment on above: Performed By: #### 2 589449 #### VANDANA EstebanHemo [address] [place] 2177205 MCV Entitic volume (RBC) 96.8 fL Normal 78.0-100.0 [facility] Comment on above: Performed By: #### 2 517482 #### VANDANA RemHemo [address] [place] 2177205 Platelet mean volume Entitic volume (Bld) 8.5 fL Normal 7.4-11.0 [facility] Comment on above: Performed By: #### 2 107101 #### VANDANA RemHemo [address] [place] [address] Platelets #/vol (Bld) 289 E3/mcL Normal 130-400 [facility] Comment on above: Performed By: #### 2 255165 #### VANDANA RemHemo [address] [place] [address] RBC #/vol (Bld) 5.05 E6/mcL Normal 3.90-6.10 [facility] Comment on above: Performed By: #### 2 171101 #### VANDANA RemHemo [address] [place] [address] WBC #/vol (Bld) 8.2 E3/mcL Normal 3.6-11.0 [facility] Comment on above: Performed By: #### 2 861047 #### VANDANA RemHemo [address] [place] [address] Hep Func Panelon 02-27-2018 Albumin mass conc 4.6 g/dL Normal 3.4-5.0 [facility] Comment on above: Performed By: #### 2 099124 #### VANDANA EstebanHemo [address] [place] [address] Albumin/Globulin mass ratio 1.8 {ratio} Normal 1.1-1.9 [facility] Comment on above: Performed By: #### 2 998709 #### VANDANA EstebanHemo [address] [place] [address] Alk Phos 80 Int._Unit/L Normal 33-136 [facility] Comment on above: Performed By: #### 2 316346 #### VANDANA EstebanHemo [address] [place] [address] ALT enzyme act/vol 35 Int._Unit/L Normal 10-52 [facility] Comment on above: Performed By: #### 2 022139 #### VANDANA Juarezo [address] [place] [address] AST enzyme act/vol 24 Int._Unit/L Normal 9-39 [facility] Comment on above: Performed By: #### 2 662165 #### VANDANA EstebanHemo [address] [place] [address] Bili Direct 0.14 mg/dL Normal 0.00-0.30 [facility] Comment on above: Performed By: #### 2 149994 #### VANDANA EstebanHemo [address] [place] [address] Bili Indirect 0.79 mg/dL Normal [facility] Comment on above: Result Comment: No e stablished ranges available for the indirect bilirubin Performed By: #### 2 668980 #### VANDANA EstebanHemo [address] [place] [address] Bili Total 0.93 mg/dL Normal 0.00-1.20 [facility] Comment on above: Performed By: #### 2 383489 #### VANDANA EstebanHemo [address] [place] [address] Globulin mass conc (S) 3.0 g/dL Normal 2.0-4.0 [facility] Comment on above: Performed By: #### 2 102195 #### VANDANA EstebanHemo [address] [place], [place] [address] Protein mass conc 7.2 g/dL Normal 6.4-8.2 [facility] Comment on above: Performed By: #### 2 061941 #### VANDANA Juarezo [address] [place] [address] eGFRon 02-27-2018 GFR/1.73 sq M predicted among non-blacks MDRD vol rate/area (S/P/Bld) mL/min/{1.73_m2} Normal [facility] Comment on above: Order Comment: Order Added by Discern Expert. Performed By: #### 2 078699 #### VANDANA EstebanHemo [address] [place], [place] [address] Auto Diffon 12-11-2017 Basophils #/vol (Bld) 0.1 E3/mcL Normal 0.0-0.2 [facility] Comment on above: Order Comment: Order Added by Discern Expert. Performed By: #### 2 722696 #### VANDANA EstebanHemo [address] [place], [place] [address] Basophils/100 WBC (Bld) 1.0 % Normal 0.0-2.0 [facility] Comment on above: Order Comment: Order Added by Discern Expert. Performed By: #### 2 775657 #### VANDANA EstebanHemo [address] [place] [address] Eos Absolute 0.4 E3/mcL Normal 0.0-0.7 [facility] Comment on above: Order Comment: Order Added by Discern Expert. Performed By: #### 2 283756 #### VANDANA EstebanHemo [address] [place], [place] [address] Eosinophils/100 WBC (Bld) 5.1 % Normal 0.0-11.0 [facility] Comment on above: Order Comment: Order Added by Discern Expert. Performed By: #### 2 773757 #### VANDANA EstebanHemo [address] [place] [address] Lymphocytes #/vol (Bld) 1.3 E3/mcL Normal 1.2-3.4 [facility] Comment on above: Order Comment: Order Added by Discern Expert. Performed By: #### 2 046377 #### VANDANA RemHemo [address] [place] [address] Lymphocytes/100 WBC (Bld) 19.0 % Low 20.0-55.0 [facility] Comment on above: Order Comment: Order Added by Discern Expert. Performed By: #### 2 542551 #### VANDANA RemHemo [address] [place] [address] Yell Absolute 0.4 E3/mcL Normal 0.0-0.7 [facility] Comment on above: Order Comment: Order Added by Discern Expert. Performed By: #### 2 782460 #### VANDANA RemHemo [address] [place] [address] Monocytes/100 WBC (Bld) 6.3 % Normal 0.0-10.0 [facility] Comment on above: Order Comment: Order Added by Discern Expert. Performed By: #### 2 638481 #### VANDANA RemHemo [address] [place] [address] Neutro Absolute 4.7 E3/mcL Normal 1.4-6.5 [facility] Comment on above: Order Comment: Order Added by Discern Expert. Performed By: #### 2 758345 #### VANDANA RemHemo [address] [place] [address] Neutro Auto 68.6 % Normal 37.0-75.0 [facility] Comment on above: Order Comment: Order Added by Discern Expert. Performed By: #### 2 701370 #### VANDANA RemHemo [address] [place] [address] BMPon 12-11-2017 Creatinine mass conc 0.9 mg/dL Normal 0.6-1.[address] [facility] Comment on above: Performed By: #### 2 914784 #### VANDANA [employer] [address] [place] [address] Urea nitrogen mass conc 13 mg/dL Normal 7-18 [facility] Comment on above: Performed By: #### 2 068211 #### VANDANA [employer] [address] [place] [address] Urea nitrogen/Creatinine mass ratio 14.4 ratio Normal 5.4-30.0 [facility] Comment on above: Performed By: #### 2 568865 #### VANDANA [employer] [address] [place] [address] Calcium mass conc 9.1 mg/dL Normal 8.4-10.2 [facility] Comment on above: Performed By: #### 2 162126 #### VANDANA [employer] [address] [place] [address] Chloride molar conc 100 mmol/L Normal 98-107 [facility] Comment on above: Performed By: #### 2 960757 #### VANDANA [employer] [address] [place] [address] CO2 molar conc 25.6 mmol/L Normal 24.0-30.0 [facility] Comment on above: Performed By: #### 2 272650 #### VANDANA [employer] [address] [place] [address] Glucose mass conc 107 mg/dL High 70-99 [facility] Comment on above: Performed By: #### 2 570343 #### VANDANA [employer] [address] [place] [address] Potassium molar conc 3.9 mmol/L Normal 3.5-5.[address] [facility] Comment on above: Performed By: #### 2 183614 #### VANDANA [employer] [address] [place] [address] Sodium molar conc 136 mmol/L Normal 136-145 [facility] Comment on above: Performed By: #### 2 184190 #### VANDANA [employer] [address] [place] [address] CBC w/ Auto Diffon 8 Erythrocyte distribution width Ratio (RBC) 14.3 % Normal 11.5-14.5 [facility] Comment on above: Performed By: #### 2 517308 #### VANDANA RemHemo [address] [place] [address] Hematocrit Volume Fraction (Bld) 43.8 % Normal 42.0-52.0 [facility] Comment on above: Performed By: #### 2 012222 #### VANDANA RemHemo [address] [place] [address] Hemoglobin mass conc (Bld) 14.8 g/dL Normal 13.5-18.0 [facility] Comment on above: Performed By: #### 2 407856 #### VANDANA RemHemo [address] [place] [address] MCH Entitic mass (RBC) 32.5 pg High 27.0-31.0 [facility] Comment on above: Performed By: #### 2 913688 #### VANDANA RemHemo [address] [place] [address] MCHC mass conc (RBC) 33.9 g/dL Normal 33.0-37.[address] [facility] Comment on above: Performed By: #### 2 777411 #### VANDANA RemHemo [address] [place] [address] MCV Entitic volume (RBC) 95.9 fL Normal 78.0-100.0 [facility] Comment on above: Performed By: #### 2 863448 #### VANDANA RemHemo [address] [place] [address] Platelet mean volume Entitic volume (Bld) 8.5 fL Normal 7.4-11.0 [facility] Comment on above: Performed By: #### 2 885534 #### VANDANA RemHemo [address] [place] [address] Platelets #/vol (Bld) 287 E3/mcL Normal 130-400 [facility] Comment on above: Performed By: #### 2 386688 #### VANDANA RemHemo [address] [place] [address] RBC #/vol (Bld) 4.57 E6/mcL Normal 3.90-6.10 [facility] Comment on above: Performed By: #### 2 240678 #### VANDANA RemHemo [address] [place] [address] WBC #/vol (Bld) 6.9 E3/mcL Normal 3.6-11.0 [facility] Comment on above: Performed By: #### 2 764741 #### VANDANA RemHemo [address] [place] [address] Hep Func Panelon 12-11-2017 Albumin mass conc 4.0 g/dL Normal 3.2-5.0 [facility] Comment on above: Performed By: #### 2 785744 #### VANDANA Juarezo [address] [place] [address] Albumin/Globulin mass ratio 1.4 {ratio} Normal 1.1-1.9 [facility] Comment on above: Performed By: #### 2 146137 #### VANDANA Juarezo [address] [place] [address] Alk Phos 62 Int._Unit/L Normal 42-121 [facility] Comment on above: Performed By: #### 2 089856 #### VANDANA Juarezo [facility] [place] [address] ALT enzyme act/vol 22 Int._Unit/L Normal 10-40 [facility] Comment on above: Performed By: #### 2 448407 #### VANDANA Juarezo [facility] [place] [address] AST enzyme act/vol 20 Int._Unit/L Normal 10-42 [facility] Comment on above: Performed By: #### 2 939557 #### VANDANA Juarezo [address] [place] [address] Bili Direct .13 mg/dL Normal .00-.20 [facility] Comment on above: Performed By: #### 2 449245 #### VANDANA Juarezo [address] [place] [address] Bili Indirect 0.8 Normal [facility] Comment on above: Result Comment: No e stablished ranges available for the Indirect Biliruben. Performed By: #### 2 109084 #### VANDANA Juarezo [facility] [place] [address] Bili Total 0.9 mg/dL Normal 0.2-1.0 [facility] Comment on above: Performed By: #### 2 167458 #### VANDANA Juarezo [address] [place] [address] Globulin mass conc (S) 2.8 g/dL Normal 2.0-4.0 [facility] Comment on above: Performed By: #### 2 217531 #### VANDANA Juarezo [address] [place] [address] Protein mass conc 6.8 g/dL Normal 6.4-8.3 [facility] Comment on above: Performed By: #### 2 611112 #### VANDANA RemHemo [address] [place] [address] eGFRon 12-11-2017 GFR/1.73 sq M predicted among non-blacks MDRD vol rate/area (S/P/Bld) mL/min/{1.73_m2} Normal [facility] Comment on above: Order Comment: Order Added by Discern Expert. Performed By: #### 2 046781 #### VANDANA RemHemo [address] [place] [address] XR Hip 2-3 Views Righton XR Hip 2-3 Views Right Exam Date/Time: 10/31/2017 11:20 EDT Reason for Exam: right hip pain Report STUDY: XR Hip 2-3 Views Right; 10/31/2017 11:20 am INDICATION: right hip pain. COMPARISON: None. ACCESSION NUMBER(S): [id number] ORDERING CLINICIAN: Janes Jade TECHNIQUE: AP and lateral views of the right hip were obtained. FINDINGS: There is no acute fracture or dislocation identified. Kkzw-gf-rzxhhmyo joint space narrowing and small marginal osteophytes are seen in the right hip. Emel-ki-yigmqfps hypertrophic degenerative changes are seen in the sacroiliac joints and pubic symphysis. Multiple rounded calcifications are seen throughout the pelvis, most consistent with phleboliths. IMPRESSION: 1. No evidence of acute fracture or dislocation. 2. Degenerative changes, as described above. FINAL REPORT Dictated: 10/31/2017 12:11 pm Dony Hill MD Signed (Electronic Signature): 10/31/2017 12:11 pm Signed by: Dony Hill MD Technologist: PERLA [facility] XR Spine Lumbar w/ Obliqueso n 10-31-2017 XR Spine Lumbar w/ Obliques Exam Date/Time: 10/31/2017 11:20 EDT Reason for Exam: ankylosing spondylitis Report STUDY: XR Spine Lumbar w/ Obliques; 10/31/2017 11:20 am INDICATION: ankylosing spondylitis. COMPARISON: None. ACCESSION NUMBER(S): [id number] ORDERING CLINICIAN: Janes Jade FINDINGS: Five views of the lumbar spine including AP, lateral, lateral cone-down and bilateral oblique views were obtained. There is no acute fracture identified. The vertebral bodies are well aligned without evidence of subluxation. Minimal disc space narrowing is seen throughout the lumbar spine. Bridging syndesmophytes are seen throughout the lumbar spine and visualized lower thoracic spine, consistent with the patient's clinical diagnosis of ankylosing spondylitis. Moderate facet degenerative changes are seen throughout the lumbar spine. There is no evidence of pars interarticularis defect. Atherosclerotic calcifications are seen throughout the abdominal aorta and iliac arteries. IMPRESSION: 1. No evidence of acute fracture. 2. Degenerative changes throughout the lumbar spine, as described above. FINAL REPORT Dictated: 10/31/2017 12:10 pm Dony Hill MD Signed (Electronic Signature): 10/31/2017 12:10 pm Signed by: Dony Hill MD Technologist: PERLA Normal [facility] Lab Miscellaneouson 07-27-19 18 Status See Ref Lab Report Normal [facility] Comment on above: Performed By: #### 1 [id number] #### VANDANA [employer] [address] [place] [address] Lab Miscellaneouson 07-23-19 18 Test Name quantiferon kit Normal [facility] Comment on above: Performed By: #### 1 [id number] #### VANDANA [employer] [address] [place] 2177205 Auto Diffon 07-18-2017 Basophils #/vol (Bld) 0.1 E3/mcL Normal 0.0-0.2 [facility] Comment on above: Order Comment: Order Added by Discern Expert. Performed By: #### 2 663003 #### VANDANA RemHemo [address] [place] [address] Basophils/100 WBC (Bld) 1.3 % Normal 0.0-2.0 [facility] Comment on above: Order Comment: Order Added by Discern Expert. Performed By: #### 2 504057 #### VANDANA RemHemo [address] [place] 2[address]205 Eos Absolute 0.3 E3/mcL Normal 0.0-0.7 [facility] Comment on above: Order Comment: Order Added by Discern Expert. Performed By: #### 2 792648 #### VANDANA RemHemo [address] [place] [address] Eosinophils/100 WBC (Bld) 5.3 % Normal 0.0-11.0 [facility] Comment on above: Order Comment: Order Added by Discern Expert. Performed By: #### 2 162118 #### VANDANA RemHemo [address] [place] [address] Lymphocytes #/vol (Bld) 1.2 E3/mcL Normal 1.2-3.4 [facility] Comment on above: Order Comment: Order Added by Discern Expert. Performed By: #### 2 628798 #### VANDANA EstebanHemo [address] [place] [address] Lymphocytes/100 WBC (Bld) 19.7 % Low 20.0-55.0 [facility] Comment on above: Order Comment: Order Added by Discern Expert. Performed By: #### 2 923679 #### VANDANA RemHemo [address] [place] [address] Yell Absolute 0.6 E3/mcL Normal 0.0-0.7 [facility] Comment on above: Order Comment: Order Added by Discern Expert. Performed By: #### 2 352158 #### VANDANA EstebanHemo [address] [place] [address] Monocytes/100 WBC (Bld) 10.6 % High 0.0-10.0 [facility] Comment on above: Order Comment: Order Added by Discern Expert. Performed By: #### 2 546599 #### VANDANA RemHemo [address] [place] [address] Neutro Absolute 3.7 E3/mcL Normal 1.4-6.5 [facility] Comment on above: Order Comment: Order Added by Discern Expert. Performed By: #### 2 677298 #### VANDANA RemHemo [address] [place] [address] Neutro Auto 63.1 % Normal 37.0-75.0 [facility] Comment on above: Order Comment: Order Added by Discern Expert. Performed By: #### 2 756301 #### VANDANA RemHemo [address] [place] [address] BMPon 07-18-2017 Creatinine mass conc 0.8 mg/dL Normal 0.6-1.[address] [facility] Comment on above: Performed By: #### 2 003008 #### VANDANA [facility] [address] [place] [address] Urea nitrogen mass conc 13 mg/dL Normal 7-18 [facility] Comment on above: Performed By: #### 2 848764 #### VANDANA [facility] [address] [place] [address] Urea nitrogen/Creatinine mass ratio 16.2 ratio Normal 5.4-30.0 [facility] Comment on above: Performed By: #### 2 221541 #### VANDANA [facility] [address] [place] [address] Calcium mass conc 9.1 mg/dL Normal 8.4-10.2 [facility] Comment on above: Performed By: #### 2 731393 #### VANDANA [facility] [address] [place] [address] Chloride molar conc 101 mmol/L Normal 98-107 [facility] Comment on above: Performed By: #### 2 559526 #### VANDANA [facility] [address] [place] [address] CO2 molar conc 25.7 mmol/L Normal 24.0-30.0 [facility] Comment on above: Performed By: #### 2 496372 #### VANDANA [facility] [address] [place] [address] Glucose mass conc 103 mg/dL High 70-99 [facility] Comment on above: Performed By: #### 2 703798 #### VANDANA [facility] [address] [place] [address] Potassium molar conc 3.9 mmol/L Normal 3.5-5.[address] [facility] Comment on above: Performed By: #### 2 095506 #### VANDANA [facility] [address] [place] [address] Sodium molar conc 134 mmol/L Low 136-145 [facility] Comment on above: Performed By: #### 2 479086 #### VANDANA [facility] [address] [place] [address] CBC w/ Auto Diffon 8 Erythrocyte distribution width Ratio (RBC) 14.8 % High 11.5-14.5 [facility] Comment on above: Performed By: #### 2 013155 #### VANDANA RemHemo [address] [place] [address] Hematocrit Volume Fraction (Bld) 43.7 % Normal 42.0-52.0 [facility] Comment on above: Performed By: #### 2 607132 #### VANDANA RemHemo [address] [place] 2[address]205 Hemoglobin mass conc (Bld) 14.8 g/dL Normal 13.5-18.0 [facility] Comment on above: Performed By: #### 2 385386 #### VANDANA RemHemo [address] [place], [place] [address] MCH Entitic mass (RBC) 31.7 pg High 27.0-31.0 [facility] Comment on above: Performed By: #### 2 316432 #### VANDANA RemHemo [address] [place] [address] MCHC mass conc (RBC) 33.8 g/dL Normal 33.0-37.[address] [facility] Comment on above: Performed By: #### 2 340373 #### VANDANA RemHemo [address] [place] 2[address]205 MCV Entitic volume (RBC) 93.9 fL Normal 78.0-100.0 [facility] Comment on above: Performed By: #### 2 138910 #### VANDANA RemHemo [address] [place] [address] Platelet mean volume Entitic volume (Bld) 8.3 fL Normal 7.4-11.0 [facility] Comment on above: Performed By: #### 2 043638 #### VANDANA RemHemo [address] [place] [address] Platelets #/vol (Bld) 243 E3/mcL Normal 130-400 [facility] Comment on above: Performed By: #### 2 465857 #### VANDANA RemHemo [address] [place] [address] RBC #/vol (Bld) 4.65 E6/mcL Normal 3.90-6.10 [facility] Comment on above: Performed By: #### 2 971299 #### VANDANA EstebanHemo [address] [place] [address] WBC #/vol (Bld) 5.9 E3/mcL Normal 3.6-11.0 [facility] Comment on above: Performed By: #### 2 466116 #### VANDANA EstebanHemo [address] [place] [address] Hep Func Panelon 07-18-2017 Albumin mass conc 4.2 g/dL Normal 3.2-5.0 [facility] Comment on above: Performed By: #### 2 443115 #### VANDANA EstebanChem [facility] [place] [address] Albumin/Globulin mass ratio 1.6 {ratio} Normal 1.1-1.9 [facility] Comment on above: Performed By: #### 2 432345 #### VANDANA EstebanChem [address] [place] [address] Alk Phos 64 Int._Unit/L Normal 42-121 [facility] Comment on above: Performed By: #### 2 336571 #### VANDANA EstebanChem [address] [place] [address] ALT enzyme act/vol 34 Int._Unit/L Normal 10-40 [facility] Comment on above: Performed By: #### 2 440969 #### VANDANA EstebanChem [address] [place] [address] AST enzyme act/vol 22 Int._Unit/L Normal 10-42 [facility] Comment on above: Performed By: #### 2 090503 #### VANDANA [facility] [address] [place] [address] Bili Direct .16 mg/dL Normal .00-.20 [facility] Comment on above: Performed By: #### 2 874329 #### VANDANA [facility] [address] [place] [address] Bili Indirect 0.5 Normal [facility] Comment on above: Result Comment: No e stablished ranges available for the Indirect Biliruben. Performed By: #### 2 257333 #### VANDANA [facility] [address] [place] [address] Bili Total 0.7 mg/dL Normal 0.2-1.0 [facility] Comment on above: Performed By: #### 2 926143 #### VANDANA [facility] [address] [place] [address] Globulin mass conc (S) 2.6 g/dL Normal 2.0-4.0 [facility] Comment on above: Performed By: #### 2 747185 #### VANDANA [facility] [address] [place] [address] Protein mass conc 6.8 g/dL Normal 6.4-8.3 [facility] Comment on above: Performed By: #### 2 635241 #### VANDANA [employer] [address] [place] [address] eGFRon 07-18-2017 GFR/1.73 sq M predicted among non-blacks MDRD vol rate/area (S/P/Bld) mL/min/{1.73_m2} Normal [facility] Comment on above: Order Comment: Order added by Discern Expert. Performed By: #### 1 [id number] #### VANDANA [employer] [address] Vital Signs Date Time Vital Sign Value Performing Clinician Jamir harman 08-04-2024 07:29-0400 Body mass index (BMI) [Ratio] 22.3 kg/m2 Dr. Lucia Trimble MD Work Phone: [facility] 08-04-2024 07:29-0400 Body temperature 97.1 [degF] Dr. Lucia Trimble MD Work Phone: [facility] 08-04-2024 07:29-0400 Body weight 68.[address] Lucia Trimble MD Work Phone: [facility] 08-04-2024 07:29-0400 Diastolic blood pressure 67 mm[Hg] Dr. Lucia Trimble MD Work Phone: [facility] 08-04-2024 07:29-0400 Heart rate 81 /min Dr. Lucia Trimble MD Work Phone: [facility] 08-04-2024 07:29-0400 Respiratory rate 20 /min Dr. Lucia Trimble MD Work Phone: [facility] 08-04-2024 07:29-0400 SaO2% (BldA) [Mass fraction] 97 % Dr. Lucia Trimble MD Work Phone: [facility] 08-04-2024 07:29-0400 Systolic blood pressure 149 mm[Hg] Dr. Lucia Trimble MD Work Phone: [facility] 07-15-2024 12:44-0400 Body height 175.[address] Lucia Trimble MD Work Phone: [facility] 07-15-2024 12:44-0400 Body mass index (BMI) [Ratio] 24.3 kg/m2 Dr. Lucia Trimble MD Work Phone: [facility] 07-15-2024 12:44-0400 Body temperature 97.2 [degF] Dr. Lucia Trimble MD Work Phone: [facility] 07-15-2024 12:44-0400 Body weight [address] Lucia Trimble MD Work Phone: [facility] 07-15-2024 12:44-0400 Diastolic blood pressure 59 mm[Hg] Dr. Lucia Trimble MD Work Phone: [facility] 07-15-2024 12:44-0400 Heart rate 75 /min Dr. Lucia Trimble MD Work Phone: [facility] 07-15-2024 12:44-0400 Respiratory rate 20 /min Dr. Lucia Trimble MD Work Phone: [facility] 07-15-2024 12:44-0400 SaO2% (BldA) [Mass fraction] 95 % Dr. Lucia Trimble MD Work Phone: [facility] 07-15-2024 12:44-0400 Systolic blood pressure 154 mm[Hg] Dr. Lucia Trimble MD Work Phone: [facility] 07-07-2024 14:13-0400 Body temperature 98.2 [degF] Dr. Lucia Trimble MD Work Phone: [facility] 07-07-2024 14:13-0400 Diastolic blood pressure 55 mm[Hg] Dr. Lucia Trimble MD Work Phone: [facility] 07-07-2024 14:13-0400 Heart rate 80 /min Dr. Lucia Trimble MD Work Phone: [facility] 07-07-2024 14:13-0400 Respiratory rate 18 /min Dr. Lucia Trimble MD Work Phone: [facility] 07-07-2024 14:13-0400 SaO2% (BldA) [Mass fraction] 96 % Dr. Lucia Trimble MD Work Phone: [facility] 07-07-2024 14:13-0400 Systolic blood pressure 112 mm[Hg] Dr. Lucia Trimble MD Work Phone: [facility] 07-06-2024 20:00-0400 Inhaled oxygen flow rate 2 L/min Dr. Lucia Trimble MD Work Phone: [facility] 07-04-2024 22:55-0400 Body height 175.[address] Lucia Trimble MD Work Phone: [facility] 07-04-2024 22:55-0400 Body mass index (BMI) [Ratio] 22.6 kg/m2 Dr. Lucia Trimble MD Work Phone: [facility] 07-04-2024 22:55-0400 Body weight 69.[address] Lucia Trimble MD Work Phone: [facility] 07-04-2024 22:34-0400 Body temperature 98.1 [degF] Dr. Lucia Trimble MD Work Phone: [facility] 07-04-2024 22:34-0400 Diastolic blood pressure 48 mm[Hg] Dr. Lucia Trimble MD Work Phone: [facility] 07-04-2024 22:34-0400 Heart rate 58 /min Dr. Lucia Trimble MD Work Phone: [facility] 07-04-2024 22:34-0400 Respiratory rate 20 /min Dr. Lucia Trimble MD Work Phone: [facility] 07-04-2024 22:34-0400 SaO2% (BldA) [Mass fraction] 96 % Dr. Lucia Trimble MD Work Phone: [facility] 07-04-2024 22:34-0400 Systolic blood pressure 141 mm[Hg] Dr. Lucia Trimble MD Work Phone: [facility] 07-04-2024 20:39-0400 Body mass index (BMI) [Ratio] 23.3 kg/m2 Dr. Lucia Trimble MD Work Phone: [facility] 07-04-2024 20:39-0400 Body weight 71.[address] Lucia Trimble MD Work Phone: [facility] 07-04-2024 20:23-0400 Body height 175.[address] Lucia Trimble MD Work Phone: [facility] 06-30-2024 14:30-0400 Body temperature 97.7 [degF] Dr. Lucia Trimble MD Work Phone: [facility] 06-30-2024 14:30-0400 Diastolic blood pressure 55 mm[Hg] Dr. Lucia Trimble MD Work Phone: [facility] 06-30-2024 14:30-0400 Heart rate 66 /min Dr. Lucia Trimble MD Work Phone: [facility] 06-30-2024 14:30-0400 Respiratory rate 20 /min Dr. Lucia Trimble MD Work Phone: [facility] 06-30-2024 14:30-0400 SaO2% (BldA) [Mass fraction] 94 % Dr. Lucia Trimble MD Work Phone: [facility] 06-30-2024 14:30-0400 Systolic blood pressure 143 mm[Hg] Dr. Lucia Trimble MD Work Phone: [facility] 06-30-2024 14:26-0400 SaO2% (BldA) [Mass fraction] 95 % Dr. Lucia Trimble MD Work Phone: [facility] 06-30-2024 10:45-0400 Body temperature 97.6 [degF] Dr. Lucia Trimble MD Work Phone: [facility] 06-30-2024 10:45-0400 Diastolic blood pressure 58 mm[Hg] Dr. Lucia Trimble MD Work Phone: [facility] 06-30-2024 10:45-0400 Heart rate 60 /min Dr. Lucia Trimble MD Work Phone: [facility] 06-30-2024 10:45-0400 Respiratory rate 20 /min Dr. Lucia Trimble MD Work Phone: [facility] 06-30-2024 10:45-0400 Systolic blood pressure 156 mm[Hg] Dr. Lucia Trimble MD Work Phone: [facility] 06-30-2024 05:00-0400 Inhaled oxygen flow rate 2 L/min Dr. Lucia Trimble MD Work Phone: [facility] 06-30-2024 03:15-0400 Body mass index (BMI) [Ratio] 23.4 kg/m2 Dr. Lucia Trimble MD Work Phone: [facility] 06-30-2024 03:15-0400 Body weight 72.[address] Lucia Trimble MD Work Phone: [facility] 06-28-2024 09:36-0400 Body height 175.[address] Lucia Tribmle MD Work Phone: [facility] 06-27-2024 22:00-0400 Body temperature 98.1 [degF] Dr. Lucia Trimble MD Work Phone: [facility] 06-27-2024 22:00-0400 Diastolic blood pressure 78 mm[Hg] Dr. Lucia Trimble MD Work Phone: [facility] 06-27-2024 22:00-0400 Heart rate 52 /min Dr. Lucia Trimble MD Work Phone: [facility] 06-27-2024 22:00-0400 Respiratory rate 22 /min Dr. Lucia Trimble MD Work Phone: [facility] 06-27-2024 22:00-0400 SaO2% (BldA) [Mass fraction] 94 % Dr. Lucia Trimble MD Work Phone: [facility] 06-27-2024 22:00-0400 Systolic blood pressure 167 mm[Hg] Dr. Lucia Trimble MD Work Phone: [facility] 06-27-2024 19:42-0400 Body mass index (BMI) [Ratio] 23.9 kg/m2 Dr. Lucia Trimble MD Work Phone: [facility] 06-27-2024 19:42-0400 Body weight 73.[address] Lucia Trimble MD Work Phone: [facility] 06-27-2024 19:08-0400 Body height 175.[address] Lucia Trimble MD Work Phone: [facility] 05-28-2024 15:16-0400 Body height 175.[address] Lucia Trimble MD Work Phone: [facility] 05-28-2024 15:16-0400 Body mass index (BMI) [Ratio] 22.4 kg/m2 Dr. Lucia Trimble MD Work Phone: [facility] 05-28-2024 15:16-0400 Body weight 68.[address] Lucia Trimble MD Work Phone: [facility] 05-28-2024 15:16-0400 Diastolic blood pressure 70 mm[Hg] Dr. Lucia Trimble MD Work Phone: [facility] 05-28-2024 15:16-0400 Heart rate 75 /min Dr. Lucia Trimble MD Work Phone: [facility] 05-28-2024 15:16-0400 Respiratory rate 18 /min Dr. Lucia Trimble MD Work Phone: [facility] 05-28-2024 15:16-0400 SaO2% (BldA) [Mass fraction] 97 % Dr. Lucia Trimble MD Work Phone: [facility] 05-28-2024 15:16-0400 Systolic blood pressure 143 mm[Hg] Dr. Lucia Trimble MD Work Phone: [facility] 05-27-2024 08:26-0400 Body mass index (BMI) [Ratio] 22.4 kg/m2 Dr. Lucia Trimble MD Work Phone: [facility] 05-27-2024 08:26-0400 Body temperature 97.1 [degF] Dr. Lucia Trimble MD Work Phone: [facility] 05-27-2024 08:26-0400 Body weight 68.[address] Lucia Trimble MD Work Phone: [facility] 05-27-2024 08:26-0400 Diastolic blood pressure 82 mm[Hg] Dr. Lucia Trimble MD Work Phone: [facility] 05-27-2024 08:26-0400 Heart rate 64 /min Dr. Lucia Trimble MD Work Phone: [facility] 05-27-2024 08:26-0400 Respiratory rate 16 /min Dr. Lucia Trimble MD Work Phone: [facility] 05-27-2024 08:26-0400 Systolic blood pressure 128 mm[Hg] Dr. Lucia Trimble MD Work Phone: [facility] 2024 07:44-0500 Body mass index (BMI) [Ratio] 22.3 kg/m2 Dr. Lucia Trimble MD Work Phone: [facility] 2024 07:44-0500 Body temperature 97.4 [degF] Dr. Lucia Trimble MD Work Phone: [facility] 2024 07:44-0500 Body weight 68.[address] Lucia Trimble MD Work Phone: [facility] 2024 07:44-0500 Diastolic blood pressure 68 mm[Hg] Dr. Lucia Trimble MD Work Phone: [facility] 2024 07:44-0500 Heart rate 80 /min Dr. Lucia Trimble MD Work Phone: [facility] 2024 07:44-0500 Respiratory rate 20 /min Dr. Lucia Trimble MD Work Phone: [facility] 2024 07:44-0500 SaO2% (BldA) [Mass fraction] 98 % Dr. Lucia Trimble MD Work Phone: [facility] 2024 07:44-0500 Systolic blood pressure 146 mm[Hg] Dr. Lucia Trimble MD Work Phone: [facility] 10-16-2022 08:29-0400 Body height 175.[address] Janes Jade Work Phone: [facility] 10-16-2022 08:29-0400 Diastolic blood pressure 67 mm[Hg] Dr. Janes Jade Work Phone: [facility] 10-16-2022 08:29-0400 Heart rate 69 /min Dr. Janes Jade Work Phone: [facility] 10-16-2022 08:29-0400 Respiratory rate 16 /min Dr. Janes Jade Work Phone: [facility] 10-16-2022 08:29-0400 Systolic blood pressure 126 mm[Hg] Dr. Janes Jdae Work Phone: [facility] 09-10-2022 07:59-0400 Body height 175.[address] Janes Jade Work Phone: [facility] 09-10-2022 07:59-0400 Body mass index (BMI) [Ratio] 20.9 kg/m2 Dr. Janes Jade Work Phone: [facility] 09-10-2022 07:59-0400 Body temperature 97.5 [degF] Dr. Janes Jade Work Phone: [facility] 09-10-2022 07:59-0400 Body weight 64.[address] Janes Jade Work Phone: [facility] 09-10-2022 07:59-0400 Diastolic blood pressure 55 mm[Hg] Dr. Janes Jade Work Phone: [facility] 09-10-2022 07:59-0400 Heart rate 86 /min Dr. Janes Jade Work Phone: [facility] 09-10-2022 07:59-0400 Respiratory rate 18 /min Dr. Janes Jade Work Phone: [facility] 09-10-2022 07:59-0400 SaO2% (BldA) [Mass fraction] 96 % Dr. Janes Jade Work Phone: [facility] 09-10-2022 07:59-0400 Systolic blood pressure 105 mm[Hg] Dr. Janes Jade Work Phone: [facility] 05-30-2022 08:17-0400 Body mass index (BMI) [Ratio] 23.3 kg/m2 Dr. Janes Jade Work Phone: [facility] 05-30-2022 08:17-0400 Body temperature 97.2 [degF] Dr. Janes Jade Work Phone: [facility] 05-30-2022 08:17-0400 Body weight 71.[address] Janes Jade Work Phone: [facility] 05-30-2022 08:17-0400 Diastolic blood pressure 68 mm[Hg] Dr. Janes Jade Work Phone: [facility] 05-30-2022 08:17-0400 Heart rate 79 /min Dr. Janes Jade Work Phone: [facility] 05-30-2022 08:17-0400 Respiratory rate 18 /min Dr. Janes Jade Work Phone: [facility] 05-30-2022 08:17-0400 SaO2% (BldA) [Mass fraction] 94 % Dr. Janes Jade Work Phone: [facility] 05-30-2022 08:17-0400 Systolic blood pressure 174 mm[Hg] Dr. Janes Jade Work Phone: [facility] 02-27-2022 13:49-0500 Body height 175.[address] Janes Jade Work Phone: [facility] Work Phone: 02-27-2022 13:49-0500 Body mass index (BMI) [Ratio] 21.9 kg/m2 Dr. Janes Jade Work Phone: [facility] Work Phone: 02-27-2022 13:49-0500 Body temperature 96.5 [degF] Dr. Janes Jade Work Phone: [facility] Work Phone: 02-27-2022 13:49-0500 Body weight 67.[address] Janes Jade Work Phone: [facility] Work Phone: 02-27-2022 13:49-0500 Diastolic blood pressure 63 mm[Hg] Dr. Janes Jade Work Phone: [facility] Work Phone: 02-27-2022 13:49-0500 Heart rate 79 /min Dr. Janes Jade Work Phone: [facility] Work Phone: 02-27-2022 13:49-0500 Respiratory rate 18 /min Dr. Janes Jade Work Phone: [facility] Work Phone: 02-27-2022 13:49-0500 SaO2% (BldA) [Mass fraction] 94 % Dr. Janes Jade Work Phone: [facility] Work Phone: 02-27-2022 13:49-0500 Systolic blood pressure 124 mm[Hg] Dr. Janes Jade Work Phone: [facility] Work Phone: 02-14-2022 12:30-0500 Body height 175.[address] Janes Jade Work Phone: [facility] Work Phone: 02-14-2022 12:30-0500 Body weight 65.[address] Janes Jade Work Phone: [facility] Work Phone: 02-14-2022 12:30-0500 Heart rate 94 /min Dr. Janes Jade Work Phone: [facility] Work Phone: 02-14-2022 12:30-0500 SaO2% (BldA) [Mass fraction] 94 % Dr. Janes Jade Work Phone: [facility] Work Phone: 11-22-2021 13:33-0400 Body height 175.[address] Janes Jade Work Phone: [facility] Work Phone: 11-22-2021 13:33-0400 Body mass index (BMI) [Ratio] 21.1 kg/m2 Dr. Janes Jade Work Phone: [facility] Work Phone: 11-22-2021 13:33-0400 Body temperature 97.4 [degF] Dr. Janes Jade Work Phone: [facility] Work Phone: 11-22-2021 13:33-0400 Body weight 64.[address] Janes Jade Work Phone: [facility] Work Phone: 11-22-2021 13:33-0400 Diastolic blood pressure 62 mm[Hg] Dr. Janes Jade Work Phone: [facility] Work Phone: 11-22-2021 13:33-0400 Heart rate 73 /min Dr. Janes Jade Work Phone: [facility] Work Phone: 11-22-2021 13:33-0400 Respiratory rate 16 /min Dr. Janes Jade Work Phone: [facility] Work Phone: 11-22-2021 13:33-0400 SaO2% (BldA) [Mass fraction] 96 % Dr. Janes Jade Work Phone: [facility] Work Phone: 11-22-2021 13:33-0400 Systolic blood pressure 114 mm[Hg] Dr. Janes Jade Work Phone: [facility] Work Phone: 10-11-2021 14:48-0400 Body height 175.[address] Janes Jade Work Phone: [facility] Work Phone: 10-11-2021 14:48-0400 Body mass index (BMI) [Ratio] 21.1 kg/m2 Dr. Janes Jade Work Phone: [facility] Work Phone: 10-11-2021 14:48-0400 Body weight 64.[address] Janes Jade Work Phone: [facility] Work Phone: 10-11-2021 14:48-0400 Diastolic blood pressure 66 mm[Hg] Dr. Janes Jade Work Phone: [facility] Work Phone: 10-11-2021 14:48-0400 Heart rate 82 /min Dr. Janes Jade Work Phone: [facility] Work Phone: 10-11-2021 14:48-0400 Respiratory rate 16 /min Dr. Janes Jade Work Phone: [facility] Work Phone: 10-11-2021 14:48-0400 SaO2% (BldA) [Mass fraction] 98 % Dr. Janes Jade Work Phone: [facility] Work Phone: 10-11-2021 14:48-0400 Systolic blood pressure 125 mm[Hg] Dr. Janes Jade Work Phone: [facility] Work Phone: 07-11-2021 14:24-0400 Body mass index (BMI) [Ratio] 22.6 kg/m2 Dr. Janes Jade Work Phone: [facility] Work Phone: 07-11-2021 14:24-0400 Body temperature 98.1 [degF] Dr. Janes Jade Work Phone: [facility] Work Phone: 07-11-2021 14:24-0400 Body weight 69.[address] Janes Jade Work Phone: [facility] Work Phone: 07-11-2021 14:24-0400 Diastolic blood pressure 56 mm[Hg] Dr. Janes Jade Work Phone: [facility] Work Phone: 07-11-2021 14:24-0400 Heart rate 88 /min Dr. Janes Jade Work Phone: [facility] Work Phone: 07-11-2021 14:24-0400 Respiratory rate 22 /min Dr. Janes Jade Work Phone: [facility] Work Phone: 07-11-2021 14:24-0400 SaO2% (BldA) [Mass fraction] 93 % Dr. Janes Jade Work Phone: [facility] Work Phone: 07-11-2021 14:24-0400 Systolic blood pressure 122 mm[Hg] Dr. Janes Jade Work Phone: [facility] Work Phone: 07-11-2021 14:24-0400 Body height 175.[address] Janes Jade Work Phone: [facility] Work Phone: 07-11-2021 14:24-0400 Body mass index (BMI) [Ratio] 22.6 kg/m2 Dr. Janes Jade Work Phone: [facility] Work Phone: 07-11-2021 14:24-0400 Body temperature 98.1 [degF] Dr. Janes Jade Work Phone: [facility] Work Phone: 07-11-2021 14:24-0400 Body weight 69.[address] Janes Jade Work Phone: [facility] Work Phone: 07-11-2021 14:24-0400 Diastolic blood pressure 56 mm[Hg] Dr. Janes Jade Work Phone: [facility] Work Phone: 07-11-2021 14:24-0400 Heart rate 88 /min Dr. Janes Jade Work Phone: [facility] Work Phone: 07-11-2021 14:24-0400 Respiratory rate 22 /min Dr. Janes Jade Work Phone: [facility] Work Phone: 07-11-2021 14:24-0400 SaO2% (BldA) [Mass fraction] 93 % Dr. Janes Jade Work Phone: [facility] Work Phone: 07-11-2021 14:24-0400 Systolic blood pressure 122 mm[Hg] Dr. Janes Jade Work Phone: [facility] Work Phone: Encounters Encounter Date Encounter Type Care Provider Facility Start: 08-19-2024 ambulatory Vreonica Gómezi ty:[facility] Start: 08-04-2024 End: 08-04-2024 Patient encounter procedure SYSTEM SUPPORT ANALYST Veronica Conner -[facility] Work Phone: Start: 08-04-2024 End: 08-04-[address] Lucia Trimble MD Work Phone: [facility] Work Phone: Start: 07-15-2024 End: 07-15-2024 ambulatory Veronica Conner Facility:[facility] Start: 07-15-2024 End: 07-15-2024 ambulatory Fazal Pal Facility:[facility] Start: 07-15-2024 End: 07-15-[address] Fazal Pal MD -[facility] Work Phone: Start: 07-15-2024 End: 07-15-2024 ambulatory Veronica Conner Facility:[facility] Start: 07-07-2024 Non-patient / Non-visit Dr. Hardik Marshall DO [facility] Work Phone: Start: 07-07-2024 End: 07-07-2024 ambulatory Lucia Trimble Facility:[facility] Start: 07-07-2024 End: 07-07-2024 Patient encounter procedure Sherin Paolo [facility] Work Phone: Start: 07-06-2024 Non-patient / Non-visit Dr. Hardik Marshall DO [facility] Work Phone: Start: 07-06-2024 Non-patient / Non-visit Dr. Virginia CARLOS -[facility] Start: 07-05-2024 ambulatory Camillaemma Anton Facility :[facility] Start: 07-05-2024 End: 07-07-2024 Evaluation and management of inpatient Dr. Hardik Briseno DO [facility] Work Phone: Start: 07-05-2024 Non-patient / Non-visit Dr. Peng Velarde MD [facility] Start: 07-04-2024 ambulatory Peng Velarde Facility :[facility] Start: 07-04-2024 Evaluation and management of inpatient Dr. Marcial Camacho [facility] Work Phone: Start: 07-04-2024 Non-patient / Non-visit Dr. Cedillo [facility] Work Phone: Start: 07-04-[address] Bette Trimble MD Work Phone: [facility] Work Phone: Start: 06-30-2024 Non-patient / Non-visit Dr. Radha Gupta MD [facility] Work Phone: Start: 06-30-2024 Non-patient / Non-visit [facility]. Diehl [facility] Start: 06-30-2024 End: 06-30-2024 Patient encounter procedure Sherin Boone [facility] Work Phone: Start: 06-30-2024 End: 06-30-2024 ambulatory [facility] Facility:[facility] Start: 06-29-2024 Non-patient / Non-visit Dr. Radha Gupta MD [facility] Work Phone: Start: 06-29-2024 ambulatory [facility] Facility:[facility] Start: 06-29-2024 Non-patient / Non-visit Dr. Virginia CARLOS [facility] Start: 06-28-2024 Non-patient / Non-visit Dr. Andriy mathew MD [facility] Start: 06-28-2024 Non-patient / Non-visit Dr. April Napoles [facility] Work Phone: Start: 06-27-2024 End: 06-27-2024 ambulatory Janes Jose Facility:[facility] Start: 06-27-2024 End: 06-27-2024 Non-patient / Non-visit Dr. Peng Velarde MD [facility] Work Phone: Start: 06-27-2024 ambulatory Janes Jose Facili ty:[facility] Start: 06-27-2024 End: 06-30-2024 Evaluation and management of inpatient Dr. Janes Jose DO -[facility] Work Phone: Start: 05-28-2024 End: 05-28-2024 Patient encounter procedure Wilian James SYSTEM SUPPORT ANALYST-C -[facility] Work Phone: Start: 05-28-2024 End: 05-28-2024 ambulatory Wilian James NP Facility:[facility] Start: 05-27-2024 End: 05-27-[address] Lucia Trimble MD Work Phone: [facility] Work Phone: Start: 05-27-2024 End: 05-27-2024 Patient encounter procedure Elieser REID -Laboratory, [place] Start: 05-27-2024 End: 05-27-2024 Patient encounter procedure Elieser REID -[facility] Work Phone: Start: 05-27-2024 End: 05-27-2024 ambulatory Elieser REID Facility:[facility] Start: 05-27-2024 End: 05-27-2024 ambulatory Elieser REID Facility:[facility] Start: 2024 End: 2024 Patient encounter procedure Gilma Dixon SYSTEM SUPPORT ANALYST-C -[facility] Work Phone: Start: 2024 End: 2024 ambulatory Gilma Dixon NP Facility:[facility] Start: 01-22-2024 End: 01-22-2024 ambulatory ABRIL PISANO II Facility:[facility] Start: 01-22-2024 End: 01-22-2024 Patient encounter procedure Abril Pisano OD Work Phone: Optometry Comment on above: 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); Pseudophakia of both eyes; Ulcerative blepharitis of left lower eyelid Start: 11-20-2023 End: 11-20-2023 ambulatory Elieser REID Facility:[facility] Start: 11-20-2023 End: 11-20-2023 ambulatory Lucia Trimble Facility:[facility] Start: 11-08-2023 End: 11-08-2023 ambulatory Gilma Dixon NP Facility:[facility] Start: 10-16-2023 End: 10-16-2023 ambulatory Christopher Francis Facility:[facility] Start: 09-24-2023 End: 09-24-2023 ambulatory Fazal Pal Facility:[facility] Start: 09-23-2023 End: 09-23-2023 ambulatory Gilma Dixon NP Facility:[facility] Start: 08-29-2023 End: 08-29-2023 ambulatory JANES JADE Facility:[facility] Start: 08-29-2023 End: 08-29-2023 Patient encounter procedure Abril Pisano OD Work Phone: Optometry Comment on above: 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 Allen Work Phone: [facility] Work Phone: Start: 10-29-2022 End: 10-29-[address] Janes Jade Work Phone: [facility] Work Phone: Start: 10-29-2022 End: 10-29-[address] Janes Jade Work Phone: [facility] Work Phone: Start: 10-16-2022 End: 10-16-[address] Janes Jade Work Phone: [facility] Work Phone: Start: 09-20-2022 End: 09-20-[address] Janes Jade Work Phone: [facility] Work Phone: Start: 09-20-2022 End: 09-20-[address] Janes Jade Work Phone: [facility] Work Phone: Start: 09-10-2022 End: 09-10-[address] [facility] Work Phone: Start: 05-30-2022 End: 05-30-[address] [facility] Work Phone: Start: 03-06-2022 End: 03-06-[address] aJnes Jade Work Phone: [facility] Work Phone: Start: 03-06-2022 End: 03-06-[address] Janes Jade Work Phone: [facility] Start: 02-27-2022 End: 02-27-[address] Jan[facility] Start: 02-16-2022 Non-patient / Non-visit Dr. Allen Work Phone: [facility] Start: 02-14-2022 End: 02-14-[address] Janes Jade Work Phone: [facility] Work Phone: Start: 02-14-2022 End: 02-14-[address] Janes Jade Work Phone: [facility]/Neurology Start: 02-13-2022 Non-patient / Non-visit Dr. Allen Work Phone: [facility] Start: 02-12-2022 End: 02-12-[address] Janes Jade Work Phone: [facility] Work Phone: Start: 02-12-2022 End: 02-12-[address] Janes Jade Work Phone: [facility] Start: 01-03-2022 End: 01-03-[address] Janes Jade Work Phone: [facility] Work Phone: Start: 01-03-2022 End: 01-03-[address] Janes Jade Work Phone: [facility] Start: 12-04-2021 End: 12-04-[address] Janes Jade Work Phone: [facility] Work Phone: Start: 12-04-2021 End: 12-04-[address] Janes Jade Work Phone: [facility] Start: 11-22-2021 End: 11-22-[address] Janes Jade Work Phone: [facility] Start: 11-01-2021 Non-patient / Non-visit Dr. Allen Work Phone: [facility] Start: 11-01-2021 End: 11-01-[address] Janes Jade Work Phone: [facility] Work Phone: Start: 11-01-2021 End: 11-01-[address] Janes Jade Work Phone: [facility] Start: 10-11-2021 End: 10-11-[address] Janes Jade Work Phone: [facility] Start: 07-11-2021 End: 07-11-[address] Janes Jade Work Phone: [facility] Start: 04-06-2021 End: 04-06-[address] Janes Jade Work Phone: [facility] Start: 05-26-2020 End: 05-26-2020 Patient encounter procedure JANES JADE [facility] Start: 04-27-2020 Patient encounter procedure JANES JADE [facility] Start: 06-24-2018 End: 06-25-2018 Patient encounter procedure Colin Saeed Facility:[facility] Start: 06-17-2018 End: 06-18-2018 Patient encounter procedure Colin Saeed Facility:[facility] Start: 02-27-2018 End: 02-28-2018 Patient encounter procedure Colin Saeed Facility:[facility] Start: 12-11-2017 End: 12-12-2017 Patient encounter procedure Colin Saeed Facility:[facility] Start: 10-31-2017 End: 11-01-2017 Patient encounter procedure Janes Jade Facility:[facility] Start: 07-22-2017 End: 07-23-2017 Patient encounter procedure Colin Saeed Facility:[facility] Start: 07-18-2017 End: 07-19-2017 Patient encounter procedure Colin Saeed Facility:[facility] Procedures Date Procedure Procedure Detail Performing Clinician Start: 07-15-2024 X-ray of chest, PA a nd lateral views Dr. Lucia Trimble MD Work Phone: Start: 07-07-2024 X-ray of chest, PA a nd lateral views Dr. Lucia Trimble MD Work Phone: Start: 07-06-[address] Lucia Trimble MD Work Phone: Start: 07-04-2024 Urnls dip stick/tabl et reagent auto microscopy Dr. Lucia Trimble MD Work Phone: Start: 07-04-2024 Plain X-ray abdomen Dr. Lucia Trimble MD Work Phone: Start: 07-04-2024 Plain chest X-ray Dr. Emma Trimble MD Work Phone: Start: 07-04-[address] Tonya Trimble MD Work Phone: Start: 07-04-[address] Tonya Trimble MD Work Phone: Start: 06-30-[address] Lucia Trimble MD Work Phone: Start: 06-30-2024 Plain chest X-ray Dr. Emma Trimble MD Work Phone: Start: 06-28-2024 Legionella pneumophi la antigen assay Dr. Lucia Trimble MD Work Phone: Start: 06-28-2024 End: 06-28-2024 Streptococcus pneumoniae antigen assay Dr. Lucia Trimble MD Work Phone: Start: 06-28-[address] Lucia Trimble MD Work Phone: Start: 06-28-2024 Urnls dip stick/tabl et reagent auto microscopy Dr. Lucia Trimble MD Work Phone: Start: 06-27-2024 CT of chest without contrast Dr. Lucia Trimble MD Work Phone: Start: 06-27-2024 X-ray of chest, PA a nd lateral views Dr. Lucia Trimble MD Work Phone: Start: 06-27-2024 SARS-CoV-2, Influenz a & RSV (PCR) Dr. Lucia Trimble MD Work Phone: Start: 10-29-2022 CT angiography of ch est with contrast Dr. Janes Jade Work Phone: Start: 09-20-[address] Janes Jade Work Phone: Start: 11-01-2021 Cardiovascular stres s test using pharmacologic stress agent Dr. Janes Jade Work Phone: Start: 07-11-[address] Janes Jade Work Phone: Plan of Treatment Date Care Activity Detail Author Start: 01-27-2025 End: 01-27-2025 Patient encounter procedure 01/27/2025 3:30 PM EST Office Visit [facility] [address] [place] [address] Abril Pisano II, OD [address] [place] [address] Eye exam/MEdicare/[facility] Comment on above: Eye exam/MEdicare/[facility] Start: 07-07-2024 Patient discharge [facility] Start: 07-06-2024 Bedrest [facility] Start: 07-06-2024 Elevation of head of bed [facility] Start: 07-06-2024 Assessment of risk o f venous thromboembolism [facility] Start: 07-06-2024 Taking patient vital signs [facility] Start: 07-06-2024 Wound care [facility] Start: 07-06-2024 [facility] Start: 07-06-2024 Catheterization of vein [facility] Start: 07-06-2024 Notification of physician [facility] Start: 07-06-2024 [facility] Start: 07-05-2024 Admission procedure [facility] Start: 07-05-2024 Medication not administered [facility] Start: 07-05-2024 Catheterization of vein [facility] Start: 07-05-2024 Notification of physician [facility] Start: 07-05-2024 [facility] Start: 07-04-2024 Provision of activit y privileges [facility] Start: 07-04-2024 Following clinical p athway protocol [facility] Start: 07-04-2024 Assessment of risk o f venous thromboembolism [facility] Start: 07-04-2024 Incentive spirometry [facility] Start: 07-04-2024 Insertion of cathete r into peripheral vein [facility] Start: 07-04-2024 Providing care accor ding to standard [facility] Start: 07-04-2024 Referral to matching machine operator [facility] Start: 07-04-2024 [facility] Start: 07-04-2024 Hospital admission, emergency, from emergency room, medical nature [facility] Start: 07-04-2024 Verification routine [facility] Start: 07-04-2024 Admission procedure [facility] Start: 07-04-2024 End: 07-04-2024 [facility] Start: 07-04-2024 [facility] Start: 07-04-2024 Bacteria identified in Blood by Culture Blood Culture [facility] Start: 07-04-2024 Bacteria identified in Urine by Culture Urine Culture [facility] Start: 07-04-2024 Blood culture Blood Culture [facility] Start: 06-30-2024 Patient discharge [facility] Start: 06-30-2024 Inhalation therapy procedure [facility] Start: 06-29-2024 Assessment of risk o f venous thromboembolism [facility] Start: 06-29-2024 Bedrest [facility] Start: 06-29-2024 Elevation of head of bed [facility] Start: 06-29-2024 Taking patient vital signs [facility] Start: 06-29-2024 Wound care [facility] Start: 06-29-2024 [facility] Start: 06-27-2024 Application of intermittent pneumatic compression device [facility] Start: 06-27-2024 End: 06-27-2024 [facility] Start: 06-27-2024 Assessment of risk o f venous thromboembolism [facility] Start: 06-27-2024 Incentive spirometry [facility] Start: 06-27-2024 Insertion of cathete r into peripheral vein [facility] Start: 06-27-2024 Measuring intake and output [facility] Start: 06-27-2024 Oxygen therapy [facility] Start: 06-27-2024 Providing care accor ding to standard [facility] Start: 06-27-2024 Provision of activit y privileges [facility] Start: 06-27-2024 Referral to occupati onal therapist [facility] Start: 06-27-2024 Referral to service [facility] Start: 06-27-2024 Tobacco use cessatio n education [facility] Start: 06-27-2024 Following clinical p athway protocol [facility] Start: 06-27-2024 Referral to matching machine operator [facility] Start: 06-27-2024 Legionella pneumophi la Ag [Presence] in Urine [facility] Start: 06-27-2024 Streptococcus pneumo niae antigen assay [facility] Start: 06-27-2024 Urinalysis complete panel - Urine [facility] Start: 06-27-2024 Verification routine [facility] Start: 06-27-2024 Admission procedure [facility] Start: 06-27-2024 CT of chest without contrast Chest without Contrast [facility] Start: 06-27-2024 Hospital admission, emergency, from emergency room, medical nature [facility] Start: 06-27-2024 [facility] Start: 06-27-2024 [facility] Start: 06-27-2024 [facility] Start: 01-08-2024 End: 01-08-2024 Patient encounter procedure 01/08/2024 8:00 AM EDT Office Visit [facility] [address] [place] [address] Abril Pisano II, OD [address] [place] [address] Eye exam[facility] Comment on above: [facility] Start: 11-17-2023 Covid-19 Vaccine ( season) Covid-19 Vaccine () [facility] Start: 11-17-2023 Influenza vaccination [facility] Start: 03-18-2023 Advance Directive Discussion Advance Directive Discussion [facility] Start: 03-18-2023 Behavioral Health Screening Behavioral Health Screening [facility] Start: 11-16-2022 Covid-19 Vaccine ( season) Covid-19 Vaccine ( season) [facility] Start: 11-16-2022 Influenza vaccination Influenza Vacc ine (#1) [facility] Start: 09-30-2022 Diabetes Screening Diabetes Screenin g [facility] Start: 03-18-2022 Advance Directive Discussion Advance Directive Discussion [facility] Start: 03-18-2022 Depression Assessment Depression Ass essment [facility] Start: 10-11-2021 Patient referral [facility] Work Phone: Start: 2020 RSV Vaccine (1 - 1-d ose 75+ series) RSV Vaccine (1 - 1-dose 75+ series) [facility] Start: 02-15-2017 Pneumococcal Vaccine : 65+ (2 of 2 - PCV) Pneumococcal Vaccine: 65+ (2 of 2 - PCV) [facility] Start: 02-15-2017 Pneumococcal Vaccine : 65+ (3 - PCV) Pneumococcal Vaccine: 65+ (3 - PCV) [facility] Start: 02-15-2017 Pneumococcal Vaccine : 65+ (3 of 3 - PCV) Pneumococcal Vaccine: 65+ (3 of 3 - PCV) [facility] Start: 12-26-2013 Diabetes Screening Diabetes Screenin g [facility] Start: 2005 RSV Vaccine (1 - 1-d ose 60+ series) RSV Vaccine (1 - 1-dose 60+ series) [facility] Start: 1995 Influenza vaccination Lung Cancer [facility] Start: 1964 Urine microalbumin profile DTa P,Tdap,Td Vaccine (1 - Tdap) [facility] Start: 1963 Annual PCP Team Brisket Puller sanjuanita Disease Visit Annual PCP Team Chronic Disease Visit [facility] Start: 1963 Anxiety Screening Anxiety Screening [facility] Start: 1963 BP Controlled (<130/80) BP Con trolled (<130/80) [facility] Start: 1963 Depression Screening Depression Scre ening [facility] Start: 1963 Hepatitis C Screening [facility] Start: 1963 Hepatitis C screening [facility] Start: 1963 Spirometry Spirometry [facility] Bilirubin measuremen t, urine [facility] Exercise tolerance test [facility] Work Phone: Folate [Moles/volume ] in Serum or Plasma [facility] Hemoglobin [Presence ] in Urine [facility] Magnesium measurement [facility] Measurement of keton es in urine using dipstick [facility] Measurement of respi ratory function [facility] Work Phone: Measurement of respi ratory function [facility] Microscopic urinalysis [facility] Patient referral [facility] Work Phone: pH of Urine [facility] Specific gravity of Urine [facility] Troponin T.cardiac [Mass/volume] in Serum or Plasma by High sensitivity method [facility] Urine blood test [facility] Urine culture [facility] Urine dipstick for glucose [facility] Urine dipstick for leukocyte esterase [facility] Urine dipstick for nitrite [facility] Urine dipstick for protein [facility] Urine examination [facility] Urine microscopy: epithelial cells [facility] Urine Microscopy: wh ite cells [facility] Urobilinogen [Presen ce] in Urine [facility] Immunizations Immunization Date Immunization Notes Care Provider [facility] 09-26-[address] Lucia Trimble MD Work Phone: [facility] 04-05-2022 Influenza High-Dose Quadrivalent Dr. Lucia Trimble MD Work Phone: [facility] 04-05-[address] Lucia Trimble MD Work Phone: [facility] 04-05-2022 influenza virus vaccine, unspecified formulation Abril Pisano II, OD Work Phone: [facility] 04-07-2021 influenza, injectabl e, quadrivalent, preservative free Dr. Lucia Trimble MD Work Phone: [facility] 01-17-2021 Covid (Moderna) Dr. Jimenez To [facility] Work Phone: [facility] 05-26-2020 [facility] (Modern[facility] 04-28-2020 Pippaid (Moderna) Dr. Jimenez To [facility] Work Phone: [facility] 04-08-2019 Influenza, high dose seasonal Dr. Lucia Trimble MD Work Phone: [facility] 02-28-2017 Influenza, high dose seasonal Dr. Lucia Trimble MD Work Phone: [facility] 02-16-2016 influenza, injectabl e, quadrivalent, preservative free Dr. Lucia Trimble MD Work Phone: [facility] 02-16-2016 pneumococcal polysaccharide vaccine, [address] Lucia Trimble MD Work Phone: [facility] 12-26-2010 influenza virus vaccine, unspecified formulation Abril Pisano II, OD Work Phone: [facility] Work Phone: 09-22-2010 pneumococcal polysaccharide vaccine, 23 valent Abril Pisano II, OD Work Phone: [facility] Payers Date Payer Category Payer Unknown PLAN G 2023 Self-pay [id number] 2010 Medicare 2010 Unknown 2010 Medicare [id number] 2010 Unknown [id number] 1945 Unknown [id number] 2.16.84 0.1.059599.3.579.2.717 1945 Unknown [id number] 2.16.84 0.1.508053.3.579.2.717 1945 Unknown [id number] 2.16.84 0.1.936325.3.579.2.717 1945 Unknown [id number] 2.16.84 0.1.388536.3.579.2.717 1945 Unknown [id number] 2.16.84 0.1.543001.3.579.2. 1945 Unknown [id number] 2.16.84 0.1.870520.3.579.2.717 1945 Unknown [id number] 2.16.84 0.1.069151.3.579.2.717 1945 Unknown [id number] 2.16.84 0.1.786089.3.579.2.651 1945 Unknown [id number] 2.16.84 0.1.860286.3.579.2.651 Unknown [id number] 2.16.8 40.1.280599.3.579.2.462 Unknown [id number] 2.16.8 40.1.147079.3.579.2.462 Unknown [id number] 2.16.8 40.1.481265.3.579.2.462 Unknown [id number] 2.16.8 40.1.600385.3.579.2.462 Unknown [id number] 2.16.8 40.1.853613.3.579.2.462 Unknown [id number] 2.16.8 40.1.686356.3.579.2.462 Unknown [id number] 2.16.8 40.1.050669.3.579.2.462 Unknown [id number] 2.16.8 40.1.404218.3.579.2.462 Unknown [id number] 2.16.8 40.1.253329.3.579.2.462 Unknown [id number] 2.16.8 40.1.683578.3.579.2.462 Unknown [id number] 2.16.8 40.1.876516.3.579.2.462 Unknown [id number] 2.16.8 40.1.039578.3.579.2.462 Unknown [id number] 2.16.8 40.1.042010.3.579.2.462 Unknown [id number] 2.16.8 40.1.750623.3.579.2.462 Unknown [id number] 2.16.8 40.1.392419.3.579.2.462 Unknown [id number] 2.16.8 40.1.573729.3.579.2.462 Unknown [id number] 2.16.8 40.1.493356.3.579.2.462 Unknown [id number] 2.16.8 40.1.388788.3.579.2.462 Unknown [id number] 2.16.8 40.1.837742.3.579.2.462 Unknown [id number] 2.16.8 40.1.244710.3.579.2.462 Unknown [id number] 2.16.8 40.1.024250.3.579.2.462 Unknown [id number] 2.16.8 40.1.200142.3.579.2.462 Unknown [id number] 2.16.8 40.1.698767.3.579.2.462 Unknown [id number] 2.16.8 40.1.708816.3.579.2.462 Unknown [id number] 2.16.8 40.1.859980.3.579.2.462 Unknown [id number] 2.16.8 40.1.396624.3.579.2.462 Unknown [id number] 2.16.8 40.1.749270.3.579.2.462 Unknown [id number] 2.16.8 40.1.287461.3.579.2.462 Unknown [id number] 2.16.8 40.1.498201.3.579.2.462 Unknown [id number] 2.16.8 40.1.361261.3.579.2.462 Unknown [id number] 2.16.8 40.1.295297.3.579.2.462 Unknown [id number] 2.16.8 40.1.217113.3.579.2.462 Unknown [id number] 2.16.8 40.1.751658.3.579.2.462 Unknown [id number] 2.16.8 40.1.336792.3.579.2.462 Unknown [id number] 2.16.8 40.1.344502.3.579.2.462 Unknown [id number] 2.16.8 40.1.017940.3.579.2.462 Unknown [id number] 2.16.8 40.1.805686.3.579.2.462 Unknown [id number] 2.16.8 40.1.078031.3.579.2.462 Social History Date Type Detail Facility Start: 07-11-2021 End: 10-16-2022 Tobacco smoking status NDIS Unknown if ever smoked [facility] Start: 1945 Sex Assigned At Male W [facility] Start: 12-20-2020 End: 06-27-2024 Tobacco smoking status NHIS Smokes tobacco daily [facility] History of tobacco use Cigarette Smoker [facility] Start: 12-20-2020 End: 01-22-2024 Cigarettes smoked current (pack per day) - Reported 0.5 [facility] Start: 12-20-2020 Tobacco use and exposure Smokeless tobacco non-user [facility] Start: 01-02-2023 End: 01-22-2024 Alcohol intake Current non-drinker of alcohol (finding) [facility] Start: 01-02-2023 End: 01-22-2024 Tobacco use panel [facility] National Score (1-10 0), lower number is lower risk Not on file [facility] Start: 07-02-2013 Alcohol Comment quit [facility] Start: 1945 Sex Assigned At Not on file [facility] Start: 06-03-2024 End: 07-07-2024 Sex Male (finding) [facility] Start: 07-04-2024 [facility] Current [facility] day smoker [facility] Start: 08-04-2024 Tobacco smoking stat [facility] Ex-smoker (finding) [facility] Medical Equipment Procedure Code Equipment Code Equipment Origin al Text Equipment Identifier Dates ([id number]) Dual-chamber implantable pacemaker, rate-responsive ()[id number] FDA Start: 06-29-2024 ([id number]) Endocardial paci ng lead ()[id number] FDA Start: 06-29-2024 ([id number]) Endocardial paci ng lead ()[id number] FDA Start: 06-29-2024 Goals Date Patient Goal Desired Activity /State Functional Status Date Assessment Result Facility 07-07-2024 Functional status Ambulates;Ibrahima r;Bathroom Privilege [facility] Work Phone: 07-07-2024 Functional status Tolerates Activity Well [facility] Work Phone: 07-07-2024 Functional status Ambulates;Ibrahima r;Bathroom Privilege [facility] Work Phone: 06-30-2024 Functional status Chair [facility] Work Phone: Mental Status Date Assessment Result Facility 07-07-2024 Cognitive function Voice/Name [facility] Work Phone: 07-04-2024 Cognitive function Voice/Name [facility] Work Phone: 06-30-2024 Cognitive function Voice/Name [facility] Work Phone: Clinical Notes 01-02-2023 to 07-07-2024 Note Date & Type Note Facility 07-07-2024 Consult note [facility] 07-07-2024 Consult note Note Date/Time July 07, 2024 3:18pm [facility] Medical Records Department [address] [place] [address] Counseling Note - Pharmacy 07/07/24 1055 MR#: [id number] Acct: [id number] Name: WILIAN CAMPBELL Rep #:[id number] : 1945 79 From: Ravi Lu PCP: Dr. Lucia Trimble MD Status:ADM IN Y Location: [place] [address] Pharmacy [facility] has performed discharge medication reconciliation and counseling for this patient. The patient's discharge medication list was reviewed for discrepancies and discrepancies were resolved. The patient was counseled on the following discharge medications and changes in medications for homegoing were reviewed. The Reason for Use, instructions for use, and potential side effects were reviewed for all new medications. The patient's questions regarding all of their medications were answered. 1. Losartan 100 mg PO daily. The patient was able to verbally demonstrate an understanding of their dischargemedications. Medications at Discharge Home Medications vit C 250 mg-vit E 90 mg-zinc 40 mg-copper 1 bn-fbcvtm-jnewgo capsule (PreserVision AREDS-2) 1 tablet PO DAILY eye health 06/21/20 dupilumab 300 mg/2 mL subcutaneous pen injector (Dupixent) 300 mg subcut Q2W eczema 07/11/21 cholecalciferol (vitamin D3) 125 mcg (5,000 unit) capsule 125 mcg PO DAILY supplement 01/14/23 fluticasone fur. 100 mcg-umeclid 62.5 mcg-vilant 25 mcg inhalat.powder (Trelegy Ellipta) 1 inh inhalation DAILY breathing #3 ea 05/08/24 simvastatin 40 mg tablet 40 mg PO DAILY cholesterol #90 tabs 05/19/24 prednisone 20 mg tablet 40 mg (2 x 20 mg) PO DAILY #10 tabs 06/30/24 fluoride (sodium) 1.1 % dental cream (SF 5000 Plus) applic PO DAILY 07/04/24 losartan 100 mg tablet 100 mg PO DAILY #30 tabs 07/07/24 07/07/24 1055 <Electronically signed by Ravi Hawthorne r> Date _ Ravi Lu Jane Signature (if applicable): Date CC: ~ Signed [facility] Work Phone: 1(139) 583-716504-22-2025 Discharge summary Author Hardik Briseno [facility] Note Date/Time July 07, 2024 10: 17am [facility] Medical Records Department [address] [facility] [place] [address] Instructions for Home/Discharge Instructions 07/07/24 1011 MR#: [id number] Acct: [id number] Name: WILIAN CAMPBELL Rep #:[id number] : 1945 79 From: Hardik Briseno DO PCP: Dr. Lucia Trimble MD Status:ADM IN Discharge Instructions Diet Discharge Diet: No restrictions (as you feel able. No excessive stretching. No lifting your arm over your head (keep elbow below shoulder level) until seen foryour pacemaker check. Do not lift your elbow away from your side until you are seen for your first visit. Keep the arm sling on if it helps remind you not to lift your arm.) DC O2, CPAP, BIPAP needs Home O2 Discharge instructions: No Dressing / Incision May shower in (days): 2 Weight Bearing Status: Full weight bearing Additional Activity Instructions:: May shower or bathe on [day 3]. Do not scrub the incision or soak in the tub. Just wash with soap and let the water run over the incision. Gently pat dry with towel. Medications: Take your pain medication as directed. Refer to your discharge instruction sheet for a list of medications you are to take. Dressing / Incision Call your doctor if your incision/area has: Continuous Slow Oozing, Sudden Increased Bleeding, Increased Pain/ Swelling, Increased Redness, Foul Smelling Discharge and Swelling at the incision site Call your doctor if you observe: Fever of 101 or Higher, Shortness of breath, Dizziness, Fainting spells, Swelling in the ankles, Chest pain, Prolonged hiccupping and Increased palpitations (irregular heartbeat) Suture Line Care: Avoid Pulling/Pushing and Avoid Pinching/Bending Cleanse incision/area with: Do not get Incision Wet and Keep Dressing Clean & Dry Additional Dressing/Incision Instructions:: When dressing is removed, wash and dry incision. Keep covered with a light bandage if it is rubbing against your clothing. Do not cover the incision with an airtight bandage. Change the bandagedaily. Do not remove steri strips. The strips will fall off on their own. Keep arm in sling for at least 3 days. Follow Up Care Please Follow Up With: Faazl Pal MD Test Results: Test results from this visit will be discussed in further detail at your follow- up appointment, if applicable. Discharge Plan Admission Admit Date/Time: 07/05/24 13:32 Primary Reason for Your Visit: Dysfunctional pacemaker Attending Provider: Hardik Briseno Primary Care Provider: Lucia Trimble Consulting Providers: Peng Velarde; Marcial Camacho; Camilla Anton Instructions Additional Instructions / Restrictions: Your losartan was increased to 100 mg daily-you have 50 mg tablets at home, you may take 2 tablets once a day until you use it up, a new prescription was calledin for the 100 mg tablets to your pharmacy Discharge Orders/Prescriptions Prescriptions: New losartan 100 mg Tablet 100 mg PO DAILY Qty: 30 0RF Continued PreserVision AREDS-2 [phone] tb-vhen-zp-mg capsule 1 tablet PO DAILY Rx Instructions: administer with meals Dupixent Pen 300 mg/2 mL pen injector 300 mg subcut Q2W cholecalciferol (vitamin D3) 125 mcg (5,000 unit) capsule 125 mcg PO DAILY Trelegy Ellipta 100-62.5-25 mcg blister with device 1 inh inhalation DAILY Qty: 3 3RF prednisone 20 mg tablet 40 mg PO DAILY Qty: 10 0RF fluoride (sodium) [SF 5000 Plus] 1.1 % cream PO DAILY simvastatin 40 mg tablet 40 mg PO DAILY Qty: 90 1RF Discontinued losartan 50 mg tablet 50 mg PO DAILY Qty: 90 1RF Referrals / Follow Up: Lucia Trimble MD [Primary Care Provider] - Within 1 Month Fazal Pal MD [Med Staff - Active Staff] - See Referral Note (Your appointmentis on 07/15/2024 at 11 AM) Disposition Disposition (needs filled in before D/C Order can be placed): Home, Self Care 07/07/24 1017<Electronically signed by Hardik Briseno DO>Hardik Briseno DO CC: Dr. Marcial Camacho DO; Dr. Lucia Trimble MD; Dr. Peng Velarde MD; Dr. Camilla Anton MD ~ Signed [facility] Work Phone: 1(155) 876-780304-22-2025 Discharge summary Author Fazal Pal [facility] Note Date/Time July 07, 2024 8:5 6am [facility] Medical Records Department [address] [place] [address] Instructions for Home/Discharge Instructions 07/07/24 0855 MR#: [id number] Acct: [id number] Name: WILIAN CAMPBELL Rep #:[id number] : 1945 79 From: Fazal Pal MD PCP: Dr. Lucia Trimble MD Status:ADM IN Discharge Instructions Diet Discharge Diet: No restrictions (as you feel able. No excessive stretching. No lifting your arm over your head (keep elbow below shoulder level) until seen foryour pacemaker check. Do not lift your elbow away from your side until you are seen for your first visit. Keep the arm sling on if it helps remind you not to lift your arm.) DC O2, CPAP, BIPAP needs Home O2 Discharge instructions: No Dressing / Incision Discharge Activity: May Not Drive May shower in (days): 2 Additional Activity Instructions:: May shower or bathe on [day 3]. Do not scrub the incision or soak in the tub. Just wash with soap and let the water run over the incision. Gently pat dry with towel. Medications: Take your pain medication as directed. Refer to your discharge instruction sheet for a list of medications you are to take. Dressing / Incision Call your doctor if your incision/area has: Continuous Slow Oozing, Sudden Increased Bleeding, Increased Pain/ Swelling, Increased Redness, Foul Smelling Discharge and Swelling at the incision site Call your doctor if you observe: Fever of 101 or Higher, Shortness of breath, Dizziness, Fainting spells, Swelling in the ankles, Chest pain, Prolonged hiccupping and Increased palpitations (irregular heartbeat) Suture Line Care: Avoid Pulling/Pushing and Avoid Pinching/Bending Cleanse incision/area with: Do not get Incision Wet and Keep Dressing Clean & Dry Additional Dressing/Incision Instructions:: When dressing is removed, wash and dry incision. Keep covered with a light bandage if it is rubbing against your clothing. Do not cover the incision with an airtight bandage. Change the bandagedaily. Do not remove steri strips. The strips will fall off on their own. Keep arm in sling for at least 3 days. Follow Up Care Please Follow Up With: Fazal Pal MD When: Pacer follow-up on July 15 at 11 AM Test Results: Test results from this visit will be discussed in further detail at your follow- up appointment, if applicable. Discharge Plan Admission Admit Date/Time: 07/05/24 13:32 Attending Provider: Hardik Briseno Primary Care Provider: Lucia Trimble Consulting Providers: Peng Velarde; Marcial Camacho; Camilla Anton Discharge Orders/Prescriptions Prescriptions: No Action PreserVision AREDS-2 896-898-20-1 iq-iejz-jt-mg capsule 1 tablet PO DAILY Rx Instructions: administer with meals Dupixent Pen 300 mg/2 mL pen injector 300 mg subcut Q2W cholecalciferol (vitamin D3) 125 mcg (5,000 unit) capsule 125 mcg PO DAILY Trelegy Ellipta 100-62.5-25 mcg blister with device 1 inh inhalation DAILY Qty: 3 3RF losartan 50 mg tablet 50 mg PO DAILY Qty: 90 1RF prednisone 20 mg tablet 40 mg PO DAILY Qty: 10 0RF fluoride (sodium) [SF 5000 Plus] 1.1 % cream PO DAILY simvastatin 40 mg tablet 40 mg PO DAILY Qty: 90 1RF Referrals / Follow Up: Lucia Trimble MD [Primary Care Provider] - 07/07/24 0856<Electronically signed by Fazal Pal MD>Fazal Pal MD CC: Dr. Marcial Camacho DO; Dr. Lucia Trimble MD; Dr. Peng Velarde MD; Dr. Camilla Anton MD ~ Signed [facility] Work Phone: [phone]) 657-689904-22-2025 Discharge summary [facility] Medical Records Department [address] [place] [address] Instructions for Home/Discharge Instructions 07/07/24 1011 MR#: [id number] Acct: [id number] Name: WILIAN CAMPBELL Rep #:[id number] : 1945 79 From: Hardik Briseno DO PCP: Dr. Lucia Trimble MD Status:ADM IN Discharge Instructions Diet Discharge Diet: No restrictions (as you feel able. No excessive stretching. No lifting your arm over your head (keep elbow below shoulder level) until seen foryour pacemaker check. Do not lift your elbow away from your side until you are seen for your first visit. Keep the arm sling on if it helps remind you not to lift your arm.) DC O2, CPAP, BIPAP needs Home O2 Discharge instructions: No Dressing / Incision May shower in (days): 2 Weight Bearing Status: Full weight bearing Additional Activity Instructions:: May shower or bathe on [day 3]. Do not scrub the incision or soak in the tub. Just wash with soap and let the water run over the incision. Gently pat dry with towel. Medications: Take your pain medication as directed. Refer to your discharge instruction sheet for a list of medications you are to take. Dressing / Incision Call your doctor if your incision/area has: Continuous Slow Oozing, Sudden Increased Bleeding, Increased Pain/ Swelling, Increased Redness, Foul Smelling Discharge and Swelling at the incision site Call your doctor if you observe: Fever of 101 or Higher, Shortness of breath, Dizziness, Fainting spells, Swelling in the ankles, Chest pain, Prolonged hiccupping and Increased palpitations (irregular heartbeat) Suture Line Care: Avoid Pulling/Pushing and Avoid Pinching/Bending Cleanse incision/area with: Do not get Incision Wet and Keep Dressing Clean & Dry Additional Dressing/Incision Instructions:: When dressing is removed, wash and dry incision. Keep covered with a light bandage if it is rubbing against your clothing. Do not cover the incision with an airtight bandage. Change the bandagedaily. Do not remove steri strips. The strips will fall off ontheir own. Keep arm in sling for at least 3 days. Follow Up Care Please Follow Up With: Fazal Pal MD Test Results: Test results from this visit will be discussed in further detail at your follow- up appointment, if applicable. Discharge Plan Admission Admit Date/Time: 07/05/24 13:32 Primary Reason for Your Visit: Dysfunctional pacemaker Attending Provider: Hardik Briseno Primary Care Provider: Lucia Trimble Consulting Providers: Peng Velarde; Marcial Camacho; Camilla Anton Instructions Additional Instructions / Restrictions: Your losartan was increased to 100 mg daily-you have 50 mg tablets at home, you may take 2 tablets once a day until you use it up, a new prescription was calledin for the 100 mg tablets to your pharmacy Discharge Orders/Prescriptions Prescriptions: New losartan 100 mg Tablet 100 mg PO DAILY Qty: 30 0RF Continued PreserVision AREDS-2 011-354-60-1 ao-jwha-bc-mg capsule 1 tablet PO DAILY Rx Instructions: administer with meals Dupixent Pen 300 mg/2 mL pen injector 300 mg subcut Q2W cholecalciferol (vitamin D3) 125 mcg (5,000 unit) capsule 125 mcg PO DAILY Trelegy Ellipta 100-62.5-25 mcg blister with device 1 inh inhalation DAILY Qty: 3 3RF prednisone 20 mg tablet 40 mg PO DAILY Qty: 10 0RF fluoride (sodium) [SF 5000 Plus] 1.1 % cream PO DAILY simvastatin 40 mg tablet 40 mg PO DAILY Qty: 90 1RF Discontinued losartan 50 mg tablet 50 mg PO DAILY Qty: 90 1RF Referrals / Follow Up: Lucia Trimble MD [Primary Care Provider] - Within 1 Month DemarcoFazal fair MD [Med Staff - Active Staff] - See Referral Note (Your appointmentis on 07/15/2024 at 11 AM) Disposition Disposition (needs filled in before D/C Order can be placed): Home, Self Care 07/07/24 1017Mark Suzanna STUART CC: Dr. Marcial Camacho DO; Dr. Lucia Trimble MD; Dr. Peng Velarde MD; Dr. Camilla Anton MD ~ Signed [facility]04-22-2025 [facility]04-22-2025 Discharge summary [facility] Medical Records Department [address] [place] [address] Instructions for Home/Discharge Instructions 07/07/24 0855 MR#: [id number] Acct: [id number] Name: WILIAN CAMPBELL Rep #:[id number] : 1945 79 From: Fazal Pal MD PCP: Dr. Lcuia Trimble MD Status:ADM IN Discharge Instructions Diet Discharge Diet: No restrictions (as you feel able. No excessive stretching. No lifting your arm over your head (keep elbow below shoulder level) until seen foryour pacemaker check. Do not lift your elbow away from your side until you are seen for your first visit. Keep the arm sling on if it helps remind you not to lift your arm.) DC O2, CPAP, BIPAP needs Home O2 Discharge instructions: No Dressing / Incision Discharge Activity: May Not Drive May shower in (days): 2 Additional Activity Instructions:: May shower or bathe on [day 3]. Do not scrub the incision or soak in the tub. Just wash with soap and let the water run over the incision. Gently pat dry with towel. Medications: Take your pain medication as directed. Refer to your discharge instruction sheet for a list of medications you are to take. Dressing / Incision Call your doctor if your incision/area has: Continuous Slow Oozing, Sudden Increased Bleeding, Increased Pain/ Swelling, Increased Redness, Foul Smelling Discharge and Swelling at the incision site Call your doctor if you observe: Fever of 101 or Higher, Shortness of breath, Dizziness, Fainting spells, Swelling in the ankles, Chest pain, Prolonged hiccupping and Increased palpitations (irregular heartbeat) Suture Line Care: Avoid Pulling/Pushing and Avoid Pinching/Bending Cleanse incision/area with: Do not get Incision Wet and Keep Dressing Clean & Dry Additional Dressing/Incision Instructions:: When dressing is removed, wash and dry incision. Keep covered with a light bandage if it is rubbing against your clothing. Do not cover the incision with an airtight bandage. Change the bandagedaily. Do not remove steri strips. The strips will fall off ontheir own. Keep arm in sling for at least 3 days. Follow Up Care Please Follow Up With: Fazal Pal MD When: Pacer follow-up on July 15 at 11 AM Test Results: Test results from this visit will be discussed in further detail at your follow- up appointment, if applicable. Discharge Plan Admission Admit Date/Time: 07/05/24 13:32 Attending Provider: Hardik Briseno Primary Care Provider: Lucia Trimble Consulting Providers: Peng Velarde; Marcial Camacho; Camilla Anton Discharge Orders/Prescriptions Prescriptions: No Action PreserVision AREDS-2 [id number] tu-hisb-gl-mg capsule 1 tablet PO DAILY Rx Instructions: administer with meals Dupixent Pen 300 mg/2 mL pen injector 300 mg subcut Q2W cholecalciferol (vitamin D3) 125 mcg (5,000 unit) capsule 125 mcg PO DAILY Trelegy Ellipta 100-62.5-25 mcg blister with device 1 inh inhalation DAILY Qty: 3 3RF losartan 50 mg tablet 50 mg PO DAILY Qty: 90 1RF prednisone 20 mg tablet 40 mg PO DAILY Qty: 10 0RF fluoride (sodium) [SF 5000 Plus] 1.1 % cream PO DAILY simvastatin 40 mg tablet 40 mg PO DAILY Qty: 90 1RF Referrals / Follow Up: Lucia Trimble MD [Primary Care Provider] - 07/07/24 0856Cydavid Pal MD CC: Dr. Marcial Camacho DO; Dr. Lucia Trimble MD; Dr. Peng Velarde MD; Dr. Camilla Anton MD ~ Signed [facility]04-22-2025 Radiology Diagnostic study note [facility] Imaging Services [address] [place] [address] Chest PA and Lateral MR#: [id number] Acct: [id number] Name: WILIAN CAMPBELL Rep #: [id number] : 1945 M 79 From: Naveen Pratt MD PCP: Dr. Lucia Trimble MD Status: ADM IN Study:Chest PA and Lateral Date of Exam: 07/07/24 Exam# [id number] Ordering Dr: José Pal MD PROCEDURE: CHEST PA AND LATERAL 07/07/2024 REASON FOR EXAM: POST PERMANANT ICD/PACEMAKER TECHNIQUE: Frontal and lateral views of the chest. COMPARISON: Chest x-ray dated 07/04/2024. FINDINGS: The cardiac silhouette is prominent. There is diffuse bilateral patchy alveolarinfiltrates. These findings are new since prior examination. This could suggest acute multifocal pneumonia versus florid pulmonary edema. Pacemakerremains overlying the left chest. There is no pneumothorax. No acute osseous abnormality seen. RAD/Chest PA and Lateral IMPRESSION: Diffuse fluffy bilateral alveolar infiltrates, new/significantly worsened since prior examination. This may represent significant multifocal pneumonia versus florid pulmonary edema. No pneumothorax. Reading Location: [id number] CC: Dr. Lucia Trimble MD; Dr. Fazal Pal MD ~ Wagon Driller: Signed [facility]04-21-2025 Progress note Author Hardik [facility] Note Date/Time July 06, 2024 6:5 3pm [facility] Medical Records Department [address] [place] [address] Progress Note - Hospitalist 07/06/24 1847 MR#: [id number] Acct: [id number] Name: WILIAN CAMPBELL Rep #:[id number] : 1945 79 From: Hardik Briseno DO PCP: Dr. Lucia Trimble MD Status:ADM IN Location: [place] [address]- 1 Reason for Visit Reason for Visit: Diagnoses Elevated white blood cell count, unspecified (07/05/24) Essential (primary) hypertension (07/05/24) Aneurysm of the ascending aorta, without rupture (07/05/24) Chronic obstructive pulmonary disease, unspecified (07/05/24) Bradycardia, unspecified (07/05/24) Breakdown (mechanical) of other cardiac electronic device, initial encounter (07/05/24) Displacement of cardiac electrode, initial encounter (07/05/24) Subjective Subjective Patient underwent repositioning of his pacemaker today and there were no complications. Objective Data Objective Data Vital Signs: Vital Signs Temp Pulse Resp BP Pulse Ox O2 Del Method 98.2 F 62 18 173/57 H 90 Room Air 07/06/24 09:30 07/06/24 17:00 07/06/24 17:00 07/06/24 17:00 07/06/24 17:00 07/06/24 18:00 Oxygen Delivery Method Room Air Weight: 69.4 kg Body Mass Index (BMI) 22.6 Intake & Output: Intake and Output for Last 24 Hours 07/04/24 07/05/24 07/06/24 23:59 23:59 23:59 Intake Total 240.25 / 240.25 Output Total 300 / 650 475 / 475 Balance -300 / -410 -234.75 / -234.75 Lab / Micro Data 07/06/24 05:29 07/06/24 05:29 Labs: Laboratory Results - last 24 hr 07/06/24 05:29: WBC 11.6 H, RBC 4.23 L, Hgb 12.9 L, Hct 37.9 L, MCV 89.6, MCH 30.5, MCHC 34.0, RDW Std Deviation 45.1 H, RDW Coeff of Benny 13.9, Plt Count 192,MPV 10.4, Immature Gran % (Auto) 1.800 H, Neut % (Auto) 71.0 H, Lymph % (Auto) 12.6 L, Yell % (Auto) 8.5, Eos % (Auto) 5.9 H, Baso % (Auto) 0.2, Absolute Neuts(auto) 8.2 H, Absolute Lymphs (auto) 1.46, Nucleated RBC % 0, Sodium 143, Potassium 4.1, Chloride 113 H, Carbon Dioxide 21.2, Anion Gap 9, BUN 26 H, Creatinine 0.97, Estim Creat Clear Calc 60.62, Est GFR (MDRD) Non-Af 80, BUN/Creatinine Ratio 26.7 H, Glucose 118 H, Calcium 8.1 Micro: Microbiology 07/04/24 22:25 Urine, Clean Catch Urine Culture - Preliminary Culture exhibits no growth. 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 with occasional pacer capture beats and ventricular escape beats.) Physical Exam Const alert, oriented x3, no apparent distress and healthy appearing General Appearance: cooperative, well kempt and well developed Orientation / Consciousness: awake, oriented to person, oriented to place and oriented to time HEENT normocephalic, head/scalp atraumatic and moist oral mucous membranes Eyes PERRL, EOMs intact bilaterally and conjunctivae normal Neck supple, no JVD, thyroid normal and no carotid bruits General: trachea midline Resp normal respiratory effort, no retractions, no use of accessory muscles and clearto auscultation bilaterally Auscultation: Negative for rales, rhonchi or wheezes Cardio regular rate, regular rhythm, S1 normal heart sound, S2 normal heart sound, no murmurs, no rub and no gallops GI normal to inspection, nondistended, normoactive bowel sounds, soft to palpation,non-tender and non-distended Extremity no clubbing, cyanosis or edema Skin no rashes or lesions noted Neuro oriented x3, CN's II-XII intact bilaterally, moves all extremities, no focal motor deficits and no sensory deficits noted Sensorium / Orientation: awake and alert Speech: speech normal Psych affect normal Assessment & Plan Assessment/Plan (1) Pacemaker failure: QUALIFIERS: Encounter type: initial encounter Qualified Code(s): T82.118A - Breakdown (mechanical) of other cardiac electronic device, initial encounter PLAN: Plan 1. 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-patient appears stable at this time, he will be monitored on telemetry and cardiology will participate in his care #2 essential hypertension-patient is currently on losartan #3 chronic obstructive pulmonary disease-patient is currently on aerosol treatments Total clinical time spent by myself addressing the patient's medical issues, reviewing all of his data, and collaborating with patient's care team: 35 minutes Charges/Coding Visit Charges Inpatient E&M: 52463 Subs Hosp L2 07/06/24 1853 <Electronically signed by Hardik Briseno DO> Cosigner Signature (if applicable): CC: ~ Signed [facility] Work Phone: 1(645) 806-889904-21-2025 Progress note [facility] Medical Records Department [address] [place] [address] Progress Note - Hospitalist 07/06/24 1847 MR#: [id number] Acct: [id number] Name: WILIAN CAMPBELL Rep #:[id number] : 1945 79 From: Hardik Briseno DO PCP: Dr. Lucia Trimble MD Status:ADM IN Location: [place] [address] Reason for Visit Reason for Visit: Diagnoses Elevated white blood cell count, unspecified (07/05/24) Essential (primary) hypertension (07/05/24) Aneurysm of the ascending aorta, without rupture (07/05/24) Chronic obstructive pulmonary disease, unspecified (07/05/24) Bradycardia, unspecified (07/05/24) Breakdown (mechanical) of other cardiac electronic device, initial encounter (07/05/24) Displacement of cardiac electrode, initial encounter (07/05/24) Subjective Subjective Patient underwent repositioning of his pacemaker today and there were no complications. Objective Data Objective Data Vital Signs: Vital Signs Temp Pulse Resp BP Pulse Ox O2 Del Method 98.2 F 62 18 173/57 H 90 Room Air 07/06/24 09:30 07/06/24 17:00 07/06/24 17:00 07/06/24 17:00 07/06/24 17:00 07/06/24 18:00 Oxygen Delivery Method Room Air Weight: 69.4 kg Body Mass Index (BMI) 22.6 Intake & Output: Intake and Output for Last 24 Hours 07/04/24 07/05/24 07/06/24 23:59 23:59 23:59 Intake Total 240.25 / 240.25 Output Total 300 / 650 475 / 475 Balance -300 / -410 -234.75 / -234.75 Lab / Micro Data 07/06/24 05:29 07/06/24 05:29 Labs: Laboratory Results - last 24 hr 07/06/24 05:29: WBC 11.6 H, RBC 4.23 L, Hgb 12.9 L, Hct 37.9 L, MCV 89.6, MCH 30.5, MCHC 34.0, RDW Std Deviation 45.1 H, RDW Coeff of Benny 13.9, Plt Count 192,MPV 10.4, Immature Gran % (Auto) 1.800 H,Neut % (Auto) 71.0 H, Lymph % (Auto) 12.6 L, Yell % (Auto) 8.5, Eos % (Auto) 5.9 H, Baso % (Auto) 0.2, Absolute Neuts(auto) 8.2 H, Absolute Lymphs (auto) 1.46, Nucleated RBC % 0, Sodium 143, Potassium 4.1, Chloride 113 H, Carbon Dioxide 21.2, Anion Gap 9, BUN 26 H, Creatinine 0.97, Estim Creat Clear Calc 60.62, Est GFR (MDRD) Non-Af 80, BUN/Creatinine Ratio 26.7 H, Glucose 118 H, Calcium 8.1 Micro: Microbiology 07/04/24 22:25 Urine, Clean Catch Urine Culture - Preliminary Culture exhibits no growth. 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 with occasional pacer capture beats and ventricular escape beats.) Physical Exam Const alert, oriented x3, no apparent distress and healthy appearing General Appearance: cooperative, well kempt and well developed Orientation / Consciousness: awake, oriented to person, oriented to place and oriented to time HEENT normocephalic, head/scalp atraumatic and moist oral mucous membranes Eyes PERRL, EOMs intact bilaterally and conjunctivae normal Neck supple, no JVD, thyroid normal and no carotid bruits General: trachea midline Resp normal respiratory effort, no retractions, no use of accessory muscles and clearto auscultation bilaterally Auscultation: Negative for rales, rhonchi or wheezes Cardio regular rate, regular rhythm, S1 normal heart sound, S2 normal heart sound, no murmurs, no rub and no gallops GI normal to inspection, nondistended, normoactive bowel sounds, soft to palpation,non-tender and non-distended Extremity no clubbing, cyanosis or edema Skin no rashes or lesions noted Neuro oriented x3, CN's II-XII intact bilaterally, moves all extremities, no focal motor deficits and no sensory deficits noted Sensorium / Orientation: awake and alert Speech: speech normal Psych affect normal Assessment & Plan Assessment/Plan (1) Pacemaker failure: QUALIFIERS: Encounter type: initial encounter Qualified Code(s): T82.118A - Breakdown (mechanical) of other cardiac electronic device, initial encounter PLAN: Plan 1. 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-patient appears stable at this time, he will bemonitored on telemetry and cardiology will participate in his care #2 essential hypertension-patient is currently on losartan #3 chronic obstructive pulmonary disease-patient is currently on aerosol treatments Total clinical time spent by myself addressing the patient's medical issues, reviewing all of his data, and collaborating with patient's care team: 35 minutes Charges/Coding Visit Charges Inpatient E&M: 67214 Subs Hosp L2 07/06/24 9065 Cosigner Signature (if applicable): CC: ~ Signed [facility]04-21-2025 Procedure note [facility] Cardiovascular Services [address] [place] [address] Pacemaker Procedure Note MR#: [id number] Acct: [id number] Name: WILIAN CAMPBELL Rep #: [id number] : 1945 M 79 From: Fazal an MD PCP: Dr. Lucia Trimble MD Status: ADM IN Study: Date of Exam: Exam# Ordering Dr: Pacemaker Procedure Note Pacemaker Procedure Note Permanent pacemaker repositioning. Temporary pacemaker placement Indication: Pacemaker micro dislodgment. Patient was brought to the [employer] in the postabsorptive nonsedated state. Informed consent was obtained. The left infraclavicular area was prepped and draped in the usual sterile manner and the right groin area was also prepped anddraped in the usual sterile manner. A 7 Nigerien right femoral venous sheath was placed under fluoroscopic control. A temporary pacemaker was then advanced under fluoroscopic control to the right ventricular mid cavity. The temporary pacemaker was set at a rate of 50 bpm. It was then secured in position. Attention was then directed to the left infraclavicular area after reprepping, grounding and scrubbing. 1% lidocaine was used to infiltrate to the old pacemaker pocket area. A 1 and half inch incision was made over the old incision and the old pacemaker was then identified and removed. The pocket was inspected. No foreign bodies were noted. The secured sutures were then freed and the pacemaker under fluoroscopic control was then freed from the set screw position and repositioned. Appropriate capture was noted with adequate impedance. Patient's blood pressure was noted to be stable. The pacemaker leadwas then connected to the ventricular port on the pacemaker generator and sutured back in place. The pocket was then rinsed thoroughly with Ancef solution and was dried. The wound was then closed in 2 layers with 3-0 and 4-0 Vicryl. Steri-Strips were applied. Patient tolerated the procedure well The temporary pacemaker was then removed under fluoroscopic control the sheath was also removed manual pressure held blood pressure remained stable. 07/06/24 1426 D> Date _ Fazal Pal MD CC: Dr. Marcial Camacho DO; Dr. Lucia Trimble MD; Dr. Hardik Briseno DO ~ Date Dictated: 07/06/241420 Date Transcribed: 07/06/241420 Wagon Driller: [place] Signed [facility]04-21-2025 Progress note Author Fazal Pal [facility] Note Date/Time July 06, 2024 7:3 9am [facility] Medical Records Department [address] [place] [address] Progress Note - Cardiology 07/06/24 0734 MR#: [id number] Acct: [id number] Name: WILIAN CAMPBELL Rep #:[id number] : 1945 79 From: Fazal Pal MD PCP: Dr. Lucia Trimble MD Status:ADM IN Location: [place] [address] Subjective Subjective Patient seen and evaluated. Events of the weekend noted. Objective Data Vital Signs: Vital Signs Temp Pulse Resp BP Pulse Ox O2 Del Method 98.4 F 68 18 150/51 H 91 Room Air 07/06/24 02:55 07/06/24 06:42 07/06/24 06:42 07/06/24 02:55 07/06/24 06:42 07/06/24 06:42 Oxygen Delivery Method Room Air Weight: 153 lb Body Mass Index (BMI) 22.6 Intake & Output: Intake and Output for Last 24 Hours 07/04/24 07/05/24 07/06/24 23:59 23:59 23:59 Intake Total 240 / 240 Output Total 300 / 650 475 / 475 Balance -300 / -410 -235 / -235 Lab / Micro Data 07/06/24 05:29 07/06/24 05:29 Labs: Laboratory Results - last 24 hr 07/06/24 05:29: WBC 11.6 H, RBC 4.23 L, Hgb 12.9 L, Hct 37.9 L, MCV 89.6, MCH 30.5, MCHC 34.0, RDW Std Deviation 45.1 H, RDW Coeff of Benny 13.9, Plt Count 192,MPV 10.4, Immature Gran % (Auto) 1.800 H, Neut % (Auto) 71.0 H, Lymph % (Auto) 12.6 L, Yell % (Auto) 8.5, Eos % (Auto) 5.9 H, Baso % (Auto) 0.2, Absolute Neuts(auto) 8.2 H, Absolute Lymphs (auto) 1.46, Nucleated RBC % 0, Sodium 143, Potassium 4.1, Chloride 113 H, Carbon Dioxide 21.2, Anion Gap 9, BUN 26 H, Creatinine 0.97, Estim Creat Clear Calc 60.62, Est GFR (MDRD) Non-Af 80, BUN/Creatinine Ratio 26.7 H, Glucose 118 H, Calcium 8.1 Rhythm Strip Ectopy: - (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 with occasional pacer capture beats and ventricular escape beats.) Cardiology Labs/Tests 07/06/24 05:29: WBC 11.6 H, RBC 4.23 L, Hgb 12.9 L, Hct 37.9 L, MCV 89.6, MCH 30.5, MCHC 34.0, Plt Count 192, MPV 10.4, Immature Gran % (Auto) 1.800 H, Neut %(Auto) 71.0 H, Lymph % (Auto) 12.6 L, Yell % (Auto) 8.5, Eos % (Auto) 5.9 H, Baso % (Auto) 0.2, Absolute Neuts (auto) 8.2 H, Nucleated RBC % 0, Sodium 143, Potassium 4.1, Chloride 113 H, Carbon Dioxide 21.2, Anion Gap 9, BUN 26 H, Creatinine 0.97, Est GFR (MDRD) Non-Af 80, BUN/Creatinine Ratio 26.7 H, Glucose 118 H, Calcium 8.1 Rhythm: AV paced EKG: ECHO: Stress Test: Cardiac Cath: PCI: CT Surgery: Holter monitor: EPS: PPM: CXR: Chest CT Scan: Physical Exam Const alert, oriented x3 and no apparent distress General Appearance: cooperative HEENT hearing grossly normal bilaterally Head and Scalp: atraumatic Eyes EOMs intact bilaterally Neck General: normal visual inspection Chest inspection of chest normal and palpation of chest normal Resp normal respiratory effort Auscultation: clear to auscultation bilaterally Cardio regular rate, regular rhythm, S1 normal heart sound and S2 normal heart sound Jugular Venous Distention: JVD GI normal to inspection, nondistended, normoactive bowel sounds Extremity normal capillary refill and no pedal edema Peripheral Pulses: Yes pulses 2+ throughout and femoral pulses present Skin no rashes or lesions noted Neuro oriented x3 and CN's II-XII intact bilaterally Psych Appearance: grossly normal and appropriate Assessment & Plan Assessment/Plan (1) Dislodgement of ventricular electrode lead of cardiac pacemaker: PLAN: Patient appears to have had a micro dislodgment of his permanent pacemaker. The above will be repositioned later today. This has been discussedwith him and he understands and agrees to proceed. 07/06/24 0739 <Electronically signed by Fazal Pal MD> Cosigner Signature (if applicable): CC: ~ Signed [facility] Work Phone: 1(167) 799-611204-21-2025 Progress note [facility] Medical Records Department [address] [place] [address] Progress Note - Cardiology 07/06/24 0734 MR#: [id number] Acct: [id number] Name: ADRIANWILIAN Rep #:[id number] : 1945 79 From: Fazal Pal MD PCP: Dr. Lucia Trimble MD Status:ADM IN Location: [place] [address] Subjective Subjective Patient seen and evaluated. Events of the weekend noted. Objective Data Vital Signs: Vital Signs Temp Pulse Resp BP Pulse Ox O2 Del Method 98.4 F 68 18 150/51 H 91 Room Air 07/06/24 02:55 07/06/24 06:42 07/06/24 06:42 07/06/24 02:55 07/06/24 06:42 07/06/24 06:42 Oxygen Delivery Method Room Air Weight: 153 lb Body Mass Index (BMI) 22.6 Intake & Output: Intake and Output for Last 24 Hours 07/04/24 07/05/24 07/06/24 23:59 23:59 23:59 Intake Total 240 / 240 Output Total 300 / 650 475 / 475 Balance -300 / -410 -235 / -235 Lab / Micro Data 07/06/24 05:29 07/06/24 05:29 Labs: Laboratory Results - last 24 hr 07/06/24 05:29: WBC 11.6 H, RBC 4.23 L, Hgb 12.9 L, Hct 37.9 L, MCV 89.6, MCH 30.5, MCHC 34.0, RDW Std Deviation 45.1 H, RDW Coeff of Benny 13.9, Plt Count 192,MPV 10.4, Immature Gran % (Auto) 1.800 H,Neut % (Auto) 71.0 H, Lymph % (Auto) 12.6 L, Yell % (Auto) 8.5, Eos % (Auto) 5.9 H, Baso % (Auto) 0.2, Absolute Neuts(auto) 8.2 H, Absolute Lymphs (auto) 1.46, Nucleated RBC % 0, Sodium 143, Potassium 4.1, Chloride 113 H, Carbon Dioxide 21.2, Anion Gap 9, BUN 26 H, Creatinine 0.97, Estim Creat Clear Calc 60.62, Est GFR (MDRD) Non-Af 80, BUN/Creatinine Ratio 26.7 H, Glucose 118 H, Calcium 8.1 Rhythm Strip Ectopy: - (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 with occasional pacer capture beats and ventricular escape beats.) Cardiology Labs/Tests 07/06/24 05:29: WBC 11.6 H, RBC 4.23 L, Hgb 12.9 L, Hct 37.9 L, MCV 89.6, MCH 30.5, MCHC 34.0, Plt Count 192, MPV 10.4, Immature Gran % (Auto) 1.800 H, Neut %(Auto) 71.0 H, Lymph % (Auto) 12.6 L, Yell % (Auto) 8.5, Eos % (Auto) 5.9 H, Baso % (Auto) 0.2, Absolute Neuts (auto) 8.2 H, Nucleated RBC % 0, Sodium 143, Potassium 4.1, Chloride 113 H, Carbon Dioxide 21.2, Anion Gap 9, BUN 26 H, Creatinine0.97, Est GFR (MDRD) Non-Af 80, BUN/Creatinine Ratio 26.7 H, Glucose 118 H, Calcium 8.1 Rhythm: AV paced EKG: ECHO: Stress Test: Cardiac Cath: PCI: CT Surgery: Holter monitor: EPS: PPM: CXR: Chest CT Scan: Physical Exam Const alert, oriented x3 and no apparent distress General Appearance: cooperative HEENT hearing grossly normal bilaterally Head and Scalp: atraumatic Eyes EOMs intact bilaterally Neck General: normal visual inspection Chest inspection of chest normal and palpation of chest normal Resp normal respiratory effort Auscultation: clear to auscultation bilaterally Cardio regular rate, regular rhythm, S1 normal heart sound and S2 normal heart sound Jugular Venous Distention: JVD GI normal to inspection, nondistended, normoactive bowel sounds Extremity normal capillary refill and no pedal edema Peripheral Pulses: Yes pulses 2+ throughout and femoral pulses present Skin no rashes or lesions noted Neuro oriented x3 and CN's II-XII intact bilaterally Psych Appearance: grossly normal and appropriate Assessment & Plan Assessment/Plan (1) Dislodgement of ventricular electrode lead of cardiac pacemaker: PLAN: Patient appears to have had a micro dislodgment of his permanent pacemaker. The above will berepositioned later today. This has been discussedwith him and he understands and agrees to proceed. 07/06/24 0739 Cosigner Signature (if applicable): CC: ~ Signed [facility]04-20-2025 Progress note Author Camilla Anton [facility] Note Date/Time July 05, 2024 3:4 5pm [facility] Medical Records Department [address] [place] [address] Progress Note 07/05/24 1206 MR#: [id number] Acct: [id number] Name: WILIAN CAMPBELL Rep #:[id number] : 1945 79 From: Camilla Anton MD PCP: Dr. Lucia Trimble MD Status:ADM IN Location: [place] [address] Subjective Subjective Patient seen and examined. He had no complaints today. He was admitted with a complaitn of dizziness and lightheadedness. His symptoms have improved, though he was still bradycardic this morning. Review of systems is otherwise negative. Objective Data Objective Data Vital Signs: Vital Signs Temp Pulse Resp BP Pulse Ox O2 Del Method 98.7 F 81 18 115/44 L 94 Room Air 07/05/24 10:07/05/24 10:07/05/24 10:00 07/05/24 10:00 07/05/24 10:07/05/24 10:00 Oxygen Delivery Method Room Air Weight: 153 lb Body Mass Index (BMI) 22.6 Lab / Micro Data 07/05/24 02:02 07/05/24 02:02 Labs: Laboratory Results - last 24 hr 07/04/24 20:35: WBC 23.4 H, RBC 4.97, Hgb 15.0, Hct 43.9, MCV 88.3, MCH 30.2, MCHC 34.2, RDW Std Deviation 44.0 H, RDW Coeff of Benny 13.6, Plt Count 238, MPV 10.7, Immature Gran % (Auto) 0.800, Neut % (Auto) 91.7 H, Lymph % (Auto) 2.9 L, Yell % (Auto) 4.5, Eos % (Auto) 0.0, Baso % (Auto) 0.1, Absolute Neuts (auto) 21.5 H, Absolute Lymphs (auto) 0.69 L, Nucleated RBC % 0, Differential Comment SCANNED, PT 13.4, INR 1.0, APTT 24.2, Sodium 141, Potassium 4.5, Chloride 107, Carbon Dioxide 21.6, Anion Gap 12, BUN 32 H, Creatinine 1.18, Estim Creat Clear Calc 50.76, Est GFR (MDRD) Non-Af 63, BUN/Creatinine Ratio 27.3 H, Glucose 285 H, Calcium 8.7, Total Bilirubin 1.18, Direct Bilirubin 0.54 H, AST 20, ALT 69 H, Alkaline Phosphatase 76, Total Protein 5.4 L, Albumin 3.7, Globulin 1.8 L 07/04/24 21:32: Lactic Acid 2.7 H* 07/04/24 22:25: Urine Color Yellow, Urine Clarity Clear, Urine pH 5.0, Ur Specific [place] 1.020, Urine Protein 100 H, Urine Glucose (UA) Normal, Urine Ketones Negative, Urine Occult Blood 10 H, Urine Nitrite Negative, Urine Bilirubin Negative, Urine Urobilinogen Normal, Ur Leukocyte Esterase 25 H, UrineRBC 0 SEEN, Urine WBC 0-5 SEEN, Ur Squamous Epith Cells 0-5 SEEN, Urine Bacteria0 SEEN, Urine Mucus 0 SEEN 07/05/24 02:02: WBC 18.8 H, RBC 4.34 L, Hgb 13.2, Hct 38.0 L, MCV 87.6, MCH 30.4, MCHC 34.7, RDW Std Deviation 44.3 H, RDW Coeff of Benny 13.7, Plt Count 194,MPV 10.9, Sodium 140, Potassium 4.2, Chloride 110 H, Carbon Dioxide 18.6 L, Anion Gap 11, BUN 37 H, Creatinine 1.05, Estim Creat Clear Calc 56.00, Est GFR (MDRD) Non-Af 72, BUN/Creatinine Ratio 35.6 H, Glucose 209 H, Lactic Acid 1.8, Calcium 8.3 Radiography Diagnostic Testing: Radiology Impression Chest X-Ray 07/04/24 20:46 IMPRESSION: Hazy bibasilar airspace opacities, may represent congestion/edema. Stable left-sided dual lead cardiac pacemaker. Reading Location: [facility] X-Ray 07/04/24 21:07 IMPRESSION: Stable appearing left-sided dual lead cardiac pacemaker. Bibasilar hazy opacity may represent congestion/edema. Small left pleural effusion. Reading Location: [facility] 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 with occasional pacer capture beats and ventricular escape beats.) Physical Exam Const alert, oriented x3, no apparent distress and well nourished General Appearance: cooperative and well developed HEENT normocephalic, head/scalp atraumatic, moist oral mucous membranes and oropharynxnormal Eyes PERRL and EOMs intact bilaterally Neck no lymphadenopathy and supple Lymph Lymphatic: no lymphadenopathy noted and no lymphedema noted Resp normal respiratory effort, normal air movement and clear to auscultation bilaterally Cardio S1 normal heart sound, S2 normal heart sound and no murmurs Cardio Narrative: bradycardia GI normal to inspection, nondistended, normoactive bowel sounds, soft to palpation,non-tender and non-distended Extremity normal capillary refill, no clubbing, cyanosis or edema and no calf tenderness General Extremity: no tenderness to palpation of joints or extremities Skin General Skin Exam: no breakdown Neuro CN's II-XII intact bilaterally, no focal motor deficits and no sensory deficits noted Coordination / Balance: [id number] test normal Motor Exam: strength 5/5 throughout and general weakness Psych thought process normal and cooperative Appearance: appropriate Assessment & Plan Assessment/Plan (1) Bradycardia: (2) Pacemaker failure: QUALIFIERS: Encounter type: initial encounter Qualified Code(s): T82.118A - Breakdown (mechanical) of other cardiac electronic device, initial encounter PLAN: Plan #Bradycardia due to malfunctioning pacemaker * was recently in [facility] for complete heat block; He had a pacemaker inserted o 06/29/2024 * started feeling dizzy and lightheaded at home. Heart rate was 30-40; EKG showed pacemaker spikes, but no capture. * cardiology consulted; * PT/OT On board. Pacemaker rep to interrogate pacemaker * fall precautions * #COPD: not in exacerbation. Breathing treatment with bronchodilators. #Leucocytosis: * wbc is 18.8 today. Was 23 yesterday. It is mainly neutrophilic. * No clear evidence of infection. Urinalysis showed no evidence of UTI. * CXR did show hazy bibasilar airspace opacities, which may represent congestion or edema, and stable left sided dual lead cardiac pacemaker. * Leukocytosis may be reactive versus trending downwards on its own. Will hold off with antibiotics for now. He does not have any fever or cough. #Hypertension: on losartan which is on hold. #Hyperlipidemia: on statin #History of ankylosing spondylitis: on dupixent. #Ascending aortic aneurysm: * follows up on outpatient basis with vascular surgery. * CT abdomen in 2021 showed ascending aortic aneurysm with diameter of 4.2cm. * Follow up with vascular surgery on outpatient basis. * #Macular degeneration: to follow up with ophthalmology on outpatient basis. DVT prophylaxis: lovenox Charges/Coding Visit Charges Inpatient E&M: 96823 Subs Hosp L2 07/05/24 2425 <Electronically signed by Camilla Anton MD> Camilla Anton MD Cosigner Signature (if applicable): CC: ~ Signed [facility] Work Phone: 1(257) 254-434804-20-2025 Progress note [facility] Medical Records Department [address] [place] [address] Progress Note 07/05/24 1206 MR#: [id number] Acct: [id number] Name: WILIAN CAMPBELL Rep #:[id number] : 1945 79 From: Camilla Anton MD PCP: Dr. Lucia Trimble MD Status:ADM IN Location: [place] [address] 1 Subjective Subjective Patient seen and examined. He had no complaints today. He was admitted with a complaitn of dizziness and lightheadedness. His symptoms have improved, though he was still bradycardic this morning. Review of systems is otherwise negative. Objective Data Objective Data Vital Signs: Vital Signs Temp Pulse Resp BP Pulse Ox O2 Del Method 98.7 F 81 18 115/44 L 94 Room Air 07/05/24 10:00 07/05/24 10:00 07/05/24 10:00 07/05/24 10:00 07/05/24 10:00 07/05/24 10:00 Oxygen Delivery Method Room Air Weight: 153 lb Body Mass Index (BMI) 22.6 Lab / Micro Data 07/05/24 02:02 07/05/24 02:02 Labs: Laboratory Results - last 24 hr 07/04/24 20:35: WBC 23.4 H, RBC 4.97, Hgb 15.0, Hct 43.9, MCV 88.3, MCH 30.2, MCHC 34.2, RDW Std Deviation 44.0 H, RDW Coeff of Benny 13.6, Plt Count 238, MPV 10.7, Immature Gran % (Auto) 0.800, Neut %(Auto) 91.7 H, Lymph % (Auto) 2.9 L, Yell % (Auto) 4.5, Eos % (Auto) 0.0, Baso % (Auto) 0.1, Absolute Neuts (auto) 21.5 H, Absolute Lymphs (auto) 0.69 L, Nucleated RBC % 0, Differential Comment SCANNED, PT 13.4, INR 1.0, APTT 24.2, Sodium 141, Potassium 4.5, Chloride 107, Carbon Dioxide 21.6, AnionGap 12, BUN 32 H, Creatinine 1.18, Estim Creat Clear Calc 50.76, Est GFR (MDRD) Non-Af 63, BUN/Creatinine Ratio 27.3 H, Glucose 285 H, Calcium 8.7, Total Bilirubin 1.18, Direct Bilirubin 0.54 H, AST 20, ALT 69 H, Alkaline Phosphatase 76, Total Protein 5.4 L, Albumin 3.7, Globulin 1.8 L 07/04/24 21:32: Lactic Acid 2.7 H* 07/04/24 22:25: Urine Color Yellow, Urine Clarity Clear, Urine pH 5.0, Ur Specific [place] 1.020, Urine Protein 100 H, Urine Glucose (UA) Normal, Urine Ketones Negative, Urine Occult Blood 10 H, Urine Nitrite Negative, Urine Bilirubin Negative, Urine Urobilinogen Normal, Ur Leukocyte Esterase 25 H, UrineRBC 0 SEEN, Urine WBC 0-5 SEEN, Ur Squamous Epith Cells 0-5 SEEN, Urine Bacteria0 SEEN, Urine Mucus 0 SEEN 07/05/24 02:02: WBC 18.8 H, RBC 4.34 L, Hgb 13.2, Hct 38.0 L, MCV 87.6, MCH 30.4, MCHC 34.7, RDW Std Deviation 44.3 H, RDW Coeff of Benny 13.7, Plt Count 194,MPV 10.9, Sodium 140, Potassium 4.2, Chloride 110 H, Carbon Dioxide 18.6 L, Anion Gap 11, BUN 37 H, Creatinine 1.05, Estim Creat Clear Calc 56.00, Est GFR (MDRD) Non-Af 72, BUN/Creatinine Ratio 35.6 H, Glucose 209 H, Lactic Acid 1.8, Calcium 8.3 Radiography Diagnostic Testing: Radiology Impression Chest X-Ray 07/04/24 20:46 IMPRESSION: Hazy bibasilar airspace opacities, may represent congestion/edema. Stable left-sided dual lead cardiac pacemaker. Reading Location: [facility] X-Ray 07/04/24 21:07 IMPRESSION: Stable appearing left-sided dual lead cardiac pacemaker. Bibasilar hazy opacity may represent congestion/edema. Small left pleural effusion. Reading [facility] 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 with occasional pacer capture beats and ventricular escape beats.) Physical Exam Const alert, oriented x3, no apparent distress and well nourished General Appearance: cooperative and well developed HEENT normocephalic, head/scalp atraumatic, moist oral mucous membranes and oropharynxnormal Eyes PERRL and EOMs intact bilaterally Neck no lymphadenopathy and supple Lymph Lymphatic: no lymphadenopathy noted and no lymphedema noted Resp normal respiratory effort, normal air movement and clear to auscultation bilaterally Cardio S1 normal heart sound, S2 normal heart sound and no murmurs Cardio Narrative: bradycardia GI normal to inspection, nondistended, normoactive bowel sounds, soft to palpation,non-tender and non-distended Extremity normal capillary refill, no clubbing, cyanosis or edema and no calf tenderness General Extremity: no tenderness to palpation of joints or extremities Skin General Skin Exam: no breakdown Neuro CN's II-XII intact bilaterally, no focal motor deficits and no sensory deficits noted Coordination / Balance: ononug-hl-vhiy test normal Motor Exam: strength 5/5 throughout and general weakness Psych thought process normal and cooperative Appearance: appropriate Assessment & Plan Assessment/Plan (1) Bradycardia: (2) Pacemaker failure: QUALIFIERS: Encounter type: initial encounter Qualified Code(s): T82.118A - Breakdown (mechanical) of other cardiac electronic device, initial encounter PLAN: Plan #Bradycardia due to malfunctioning pacemaker * was recently in [facility] for complete heat block; He had a pacemaker inserted o 06/29/2024 * started feeling dizzy and lightheaded at home. Heart rate was 30-40; EKG showed pacemaker spikes,but no capture. * cardiology consulted; * PT/OT On board. Pacemaker rep to interrogate pacemaker * fall precautions * #COPD: not in exacerbation. Breathing treatment with bronchodilators. #Leucocytosis: * wbc is 18.8 today. Was 23 yesterday. It is mainly neutrophilic. * No clear evidence of infection. Urinalysis showed no evidence of UTI. * CXR did show hazy bibasilar airspace opacities, which may represent congestion or edema, and stable left sided dual lead cardiac pacemaker. * Leukocytosis may be reactive versus trending downwards on its own. Will hold off with antibioticsfor now. He does not have any fever or cough. #Hypertension: on losartan which is on hold. #Hyperlipidemia: on statin #History of ankylosing spondylitis: on dupixent. #Ascending aortic aneurysm: * follows up on outpatient basis with vascular surgery. * CT abdomen in 2021 showed ascending aortic aneurysm with diameter of 4.2cm. * Follow up with vascular surgery on outpatient basis. * #Macular degeneration: to follow up with ophthalmology on outpatient basis. DVT prophylaxis: lovenox Charges/Coding Visit Charges Inpatient E&M: 86848 Subs Hosp L2 07/05/24 1545 Camilla Anton MD Cosigner Signature (if applicable): CC: ~ Signed [facility]04-20-2025 Consult note Author Peng Velarde [facility] Note Date/Time July 05, 2024 9:4 0[facility] Medical Records Department [address] [place] [address] Consultation - Cardiology 07/05/24918 MR#: [id number] Acct: [id number] Name: WILIAN CAMPBELL Rep #:[id number] : 1945 79 From: Peng Velarde MD PCP: Dr. Lucia Trimble MD Status:ADM KENNETH Location: [place] [address] Assessment & Plan Assessment/Plan (1) Bradycardia: PLAN: Patient presented with bradycardia in the 35-40 bpm range documented by his sister who is power of claims attorney in the home environment. His blood pressurewas stable in the home environment and he was transported by car to the emergency department. The patient's EKG in the ER revealed complete heart blockwith occasional capture of the paced beats but multiple noncapture beats documented. Patient's blood pressure remains adequate. Formal pacemaker interrogation will be done this morning and attempt to adjust the output and/or mode to attempt to capture until the pacemaker lead can be repositioned. (2) Pacemaker failure: QUALIFIERS: Encounter type: initial encounter Qualified Code(s): T82.118A - Breakdown (mechanical) of other cardiac electronic device, initial encounter PLAN: Formal pacemaker interrogation will be done this morning and attempt to adjust the output and/or mode to attempt to capture until the pacemaker lead canbe repositioned. I discussed this in detail with the [employer] pacemaker computer help desk representative who is on her way to the hospital. (3) Leukocytosis: QUALIFIERS: Leukocytosis type: unspecified Qualified Code(s): D72.829 - Elevated white blood cell count, unspecified PLAN: The patient has just completed an opponent steroid dosing for his COPD exacerbation. There is no fever he is currently off the steroids and he appearsnontoxic. Further evaluation be left to the primary service. The patient did have urinalysis that showed slightly elevated nitrates and hemoglobin in the urine. (4) COPD (chronic obstructive pulmonary disease): QUALIFIERS: COPD type: unspecified COPD Qualified Code(s): J44.9 - Chronic obstructive pulmonary disease, unspecified PLAN: Further treatment per the primary service. (5) Ascending aortic aneurysm: QUALIFIERS: Presence of rupture: without rupture Qualified Code(s): I71.21 - Aneurysm of the ascending aorta, without rupture PLAN: Patient is prior evaluation showing a 4.2 cm ascending aortic aneurysm which is being monitored. (6) Essential hypertension: PLAN: Patient's blood pressure will be readdressed once his rhythm is stabilized. PLAN: Plan 1. Will have the pacemaker formally interrogated and reprogrammed to see if we can obtain capture in the ventricle. There is likely the patient will require lead placement adjustment. 2. Patient is to be maintained at bedrest until we can further adjust the pacemaker and obtain capture. 3. Will plan on potential lead repositioning around noon July 06, [address] Pal HPI Consult Data Date of Consult: 07/05/24 HPI Narrative Reason for Consultation: Pacemaker malfunction HPI Narrative: WILIAN CAMPBELL, is a 79 M who presents with a 24 to 48-hour history of profound weakness and near syncope with change of position. This is very similar to the symptoms the patient had last weekend that prompted his original admission. At that time he was found to be in complete heart block. EKG in the emergency department was reviewed by myself showed the patient has anoccasional PVC or escape ventricular beat with complete heart block and an occasional ventricular paced captured beat. Heart rate was in the 35-40 bpm range. The patient's blood pressure was stable. Renal function remains stable a bump in his lactic acid of 2.7 that dropped down to 1.8 on recheck. The patient has been afebrile his white count was elevated 23,000 dropped down to 18.8. He had just completed a steroid dose regimen for his COPD exacerbation. Blood pressure was 115?130/57?70. His bicarb was slightly down at 17. Since admission the patient's telemetry has shown sinus rhythm with complete heart block and occasional ventricular capture beats. He has done 3-4 capture beats in a row and then a lack of ventricular capture. The patient does appear to be appropriately sensing the atrium. I did discuss situation with the [employer] pacemaker computer help desk representative. She will be coming in to formally interrogate the pacemaker and see if voltage or switching to a unipolar device mechanism would be able to capture the ventricle better. She did tell me that during the procedure with placement of the ventricular lead the patient went asystolic he did have good pacing and sensing thresholds at the time of implant. The patient denies utilizing his left arm over his head and reports he has kept it in the sling ever since he wasdischarged. The patient is resting comfortably in the seated position in bed eating breakfast. He denies any lightheadedness or significant shortness of breath. He reports that his COPD exacerbation has resolved. The patient had an echocardiogram June 30, 2024. That showed normal ejection fraction of 60% with no regional wall motion abnormality. Both atria are of normal size right ventricle was normal. The patient does have mild aortic stenosis. [facility] Medical History Pacemaker Presence of permanent cardiac pacemaker Esophageal diverticulum Ankylosing spondylitis Vision problems High blood pressure Back pain Arthritis Alcohol abuse Right bundle branch block (RBBB) Obstructive sleep apnea Hyperlipidemia Essential hypertension Ascending aortic aneurysm Tobacco use disorder, continuous Pneumonia Spondylitis Ankylosis Dermal hypersensitivity reaction Macular degeneration COPD (chronic obstructive pulmonary disease) Home Medications ?Medication ?Instructions ?Recorded ?Last Taken ?Type vit C 250 mg-vit E 90 mg-zinc 40 1 tablet PO DAILY eye health 06/21/20 Unknown History mg-copper 1 ig-ueoqsg-yurnke capsule (PreserVision AREDS-2) dupilumab 300 mg/2 mL subcutaneous 300 mg subcut Q2W e czema 07/11/21 Unknown History pen injector (Dupixent) cholecalciferol (vitamin D3) 125 125 mcg PO DAILY supp lement 01/14/23 Unknown History mcg (5,000 unit) capsule fluticasone fur. 100 mcg-umeclid 1 inh inhalation PRICILLA Y breathing 05/08/24 Unknown Rx 62.5 mcg-vilant 25 mcg #3 ea inhalat.powder (Trelegy Ellipta) simvastatin 40 mg tablet 40 mg PO DAILY cholesterol # 90 tabs 05/19/24 Unknown Rx losartan 50 mg tablet 50 mg PO DAILY blood pressur e #90 05/27/24 Unknown Rx tabs prednisone 20 mg tablet 40 mg (2 x 20 mg) PO DAILY # 10 tabs 06/30/24 Unknown Rx fluoride (sodium) 1.1 % dental applic PO DAILY 5 Unknown History cream (SF 5000 Plus) Allergy/AdvReac Type Severity Reaction Status Date / Time Iodinated Contrast Media AdvReac Mild Nausea Verified 07/04/24 20:25 Family History Father Psoriasis Thoracic aortic aneurysm (TAA) Mother Skin cancer Sister Lupus Thoracic aortic aneurysm (TAA) Breast cancer Brother Crohn's disease Ulcerative colitis Thoracic aortic aneurysm (TAA) Sister Psoriatic arthritis Breast cancer Other Uterine cancer Surgical History H/O chest tube placement History of tonsillectomy H/O colonoscopy Social History household members: none current occupational status: retired 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[employer] Smoking Status: Current some day smoker tobacco type: cigarettes Tobacco: How many years used: 57 Electronic Cigarette Use: not used how long ago did patient quit smoking: patient cut down to about 0.5ppd second hand exposure: Yes (father smoked for a few years) quit status: has quit before alcohol intake: never substance use type: does not use what type of physical activity do you participate in: none seatbelt use: always do you feel safe at home: Yes ROS Constitutional Constitutional: Reports as per HPI Eyes Eyes: Reports loss of vision ENT HEENT: Reports systems reviewed and no addt'l complaints, except as documented Cardiovascular Cardiovascular: Reports as per HPI Respiratory/Chest Respiratory/Chest: Reports as per HPI Gastrointestinal Gastrointestinal: Reports systems reviewed and no addt'l complaints, except as documented Genitourinary Genitourinary: Reports as per HPI Musculoskeletal Musculoskeletal: Reports as per HPI Integumentary Integumentary: Reports systems reviewed and no addt'l complaints, except as documented Neurologic Neurologic: Reports systems reviewed and no addt'l complaints, except as documented Psychiatric Psychiatric: Reports systems reviewed and no addt'l complaints, except as documented Endocrine Endocrinology: Reports systems reviewed and no addt'l complaints, except as documented Hematologic/Lymphatic Hematologic/Lymphatic: Reports systems reviewed and no addt'l complaints, exceptas documented Allergic/Immunologic Allergic/Immunologic: Reports systems reviewed and no addt'l complaints, except as documented Physical Exam Const alert and oriented x3 HEENT normocephalic Eyes EOMs intact bilaterally Neck no JVD and no carotid bruits Chest Chest Narrative: Pacer incision site is healing well there is no evidence of accumulation of fluid. Chest: left pectoral incision Resp normal respiratory effort Auscultation: wheezes expiratory wheezes and posterior and diminished lung sounds diffuse Cardio Rate: bradycardia Rhythm: abnormal rhythm irregularly irregular Heart Sounds: S1 normal, S2 normal and murmur systolic (Difficult to auscultate due to pulmonary status) I/ soft mid; Negative for click or gallop GI normal to inspection, nondistended, normoactive bowel sounds Extremity no pedal edema Skin Skin Narrative: Pacer insertion site healing well. Neuro Neuro Narrative: Alert and oriented x 3. Have visual deficits related to macular degeneration. Psych mental status grossly normal Risk Stratification Risk Stratification Applicable: No Charges/Coding Visit Charges Inpatient E&M: 95704 Init Hosp L3 Objective Data Vital Signs: Vital Signs Temp Pulse Resp BP Pulse Ox O2 Del Method 97.8 F 40 L 18 115/57 L 95 Room Air 07/05/24 04:42 07/05/24 06:42 07/05/24 06:42 07/05/24 04:42 07/05/24 06:42 07/05/24 06:42 Oxygen Delivery Method Room Air Weight: 153 lb Body Mass Index (BMI) 22.6 Lab / Micro Data Attestation: I reviewed the patient's lab results. 07/05/24 02:02 07/05/24 02:02 Labs: Laboratory Results - last 24 hr 07/04/24 20:35: WBC 23.4 H, RBC 4.97, Hgb 15.0, Hct 43.9, MCV 88.3, MCH 30.2, MCHC 34.2, RDW Std Deviation 44.0 H, RDW Coeff of Benny 13.6, Plt Count 238, MPV 10.7, Immature Gran % (Auto) 0.800, Neut % (Auto) 91.7 H, Lymph % (Auto) 2.9 L, Yell % (Auto) 4.5, Eos % (Auto) 0.0, Baso % (Auto) 0.1, Absolute Neuts (auto) 21.5 H, Absolute Lymphs (auto) 0.69 L, Nucleated RBC % 0, Differential Comment SCANNED, PT 13.4, INR 1.0, APTT 24.2, Sodium 141, Potassium 4.5, Chloride 107, Carbon Dioxide 21.6, Anion Gap 12, BUN 32 H, Creatinine 1.18, Estim Creat Clear Calc 50.76, Est GFR (MDRD) Non-Af 63, BUN/Creatinine Ratio 27.3 H, Glucose 285 H, Calcium 8.7, Total Bilirubin 1.18, Direct Bilirubin 0.54 H, AST 20, ALT 69 H, Alkaline Phosphatase 76, Total Protein 5.4 L, Albumin 3.7, Globulin 1.8 L 07/04/24 21:32: Lactic Acid 2.7 H* 07/04/24 22:25: Urine Color Yellow, Urine Clarity Clear, Urine pH 5.0, Ur Specific [place] 1.020, Urine Protein 100 H, Urine Glucose (UA) Normal, Urine Ketones Negative, Urine Occult Blood 10 H, Urine Nitrite Negative, Urine Bilirubin Negative, Urine Urobilinogen Normal, Ur Leukocyte Esterase 25 H, UrineRBC 0 SEEN, Urine WBC 0-5 SEEN, Ur Squamous Epith Cells 0-5 SEEN, Urine Bacteria0 SEEN, Urine Mucus 0 SEEN 07/05/24 02:02: WBC 18.8 H, RBC 4.34 L, Hgb 13.2, Hct 38.0 L, MCV 87.6, MCH 30.4, MCHC 34.7, RDW Std Deviation 44.3 H, RDW Coeff of Benny 13.7, Plt Count 194,MPV 10.9, Sodium 140, Potassium 4.2, Chloride 110 H, Carbon Dioxide 18.6 L, Anion Gap 11, BUN 37 H, Creatinine 1.05, Estim Creat Clear Calc 56.00, Est GFR (MDRD) Non-Af 72, BUN/Creatinine Ratio 35.6 H, Glucose 209 H, Lactic Acid 1.8, Calcium 8.3 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 with occasional pacer capture beats and ventricular escape beats.) Cardiology Labs/Tests 07/04/24 20:35: WBC 23.4 H, RBC 4.97, Hgb 15.0, Hct 43.9, MCV 88.3, MCH 30.2, MCHC 34.2, Plt Count 238, MPV 10.7, Immature Gran % (Auto) 0.800, Neut % (Auto) 91.7 H, Lymph % (Auto) 2.9 L, Yell % (Auto) 4.5, Eos % (Auto) 0.0, Baso % (Auto)0.1, Absolute Neuts (auto) 21.5 H, Nucleated RBC % 0, PT 13.4, INR 1.0, APTT 24.2, Sodium 141, Potassium 4.5, Chloride 107, Carbon Dioxide 21.6, Anion Gap 12, BUN 32 H, Creatinine 1.18, Est GFR (MDRD) Non-Af 63, BUN/Creatinine Ratio 27.3 H, Glucose 285 H, Calcium 8.7, Total Bilirubin 1.18, Direct Bilirubin 0.54 H 07/04/24 21:32: Lactic Acid 2.7 H* 07/04/24 22:25: Urine Color Yellow, Urine Clarity Clear, Urine pH 5.0, Ur Specific [place] 1.020, Urine Protein 100 H, Urine Glucose (UA) Normal, Urine Ketones Negative, Urine Occult Blood 10 H, Urine Nitrite Negative, Urine Bilirubin Negative, Urine Urobilinogen Normal, Ur Leukocyte Esterase 25 H, UrineRBC 0 SEEN, Urine WBC 0-5 SEEN 07/05/24 02:02: WBC 18.8 H, RBC 4.34 L, Hgb 13.2, Hct 38.0 L, MCV 87.6, MCH 30.4, MCHC 34.7, Plt Count 194, MPV 10.9, Sodium 140, Potassium 4.2, Chloride 110 H, Carbon Dioxide 18.6 L, Anion Gap 11, BUN 37 H, Creatinine 1.05, Est GFR (MDRD) Non-Af 72, BUN/Creatinine Ratio 35.6 H, Glucose 209 H, Lactic Acid 1.8, Calcium 8.3 Rhythm: EKG: ECHO: Stress Test: Cardiac Cath: PCI: CT Surgery: Holter monitor: EPS: PPM: CXR: Chest CT Scan: Radiography Diagnostic Testing: Radiology Impression Chest X-Ray 07/04/24 20:46 IMPRESSION: Hazy bibasilar airspace opacities, may represent congestion/edema. Stable left-sided dual lead cardiac pacemaker. [facility] 07/04/24 21:07 IMPRESSION: Stable appearing left-sided dual lead cardiac pacemaker. Bibasilar hazy opacity may represent congestion/edema. Small left pleural effusion. Reading Location: [facility] 07/05/24 0940 <Electronically signed by Peng Velarde MD> Cosigner Signature (if applicable): CC: Dr. Marcial Camacho DO; Dr. Lucia Trimble MD~ Signed [facility] Work Phone: [phone] Consult note [facility] Medical Records Department [address] [place] [address] Consultation - Cardiology 07/05/24918 MR#: [id number] Acct: [id number] Name: WILIAN CAMPBELL Rep #:[id number] : 1945 79 From: Peng Velarde MD PCP: Dr. Lucia Trimble MD Status:ADM KENNETH Location: [place] [address] Assessment & Plan Assessment/Plan (1) Bradycardia: PLAN: Patient presented with bradycardia in the 35-40 bpm range documented by his sister who is power of claims attorney in the home environment. His blood pressurewas stable in the home environment and he was transported by car to the emergency department. The patient's EKG in the ER revealed complete heart blockwith occasional capture of the paced beats but multiple noncapture beats documented. Patient's blood pressure remains adequate. Formal pacemaker interrogation will be done this morning and attempt to adjust the output and/or mode to attempt to capture until the pacemaker lead can be repositioned. (2) Pacemaker failure: QUALIFIERS: Encounter type: initial encounter Qualified Code(s): T82.118A - Breakdown (mechanical) of other cardiac electronic device, initial encounter PLAN: Formal pacemaker interrogation will be done this morning and attempt to adjust the output and/or mode to attempt to capture until the pacemaker lead canbe repositioned. I discussed this in detail with the [employer] pacemaker computer help desk representative who is on her way [facility]. (3) Leukocytosis: QUALIFIERS: Leukocytosis type: unspecified Qualified Code(s): D72.829 - Elevated white blood cell count, unspecified PLAN: The patient has just completed an opponent steroid dosing for his COPD exacerbation. There isno fever he is currently off the steroids and he appearsnontoxic. Further evaluation be left to the primary service. The patient did have urinalysis that showed slightly elevated nitrates and hemoglobin in the urine. (4) COPD (chronic obstructive pulmonary disease): QUALIFIERS: COPD type: unspecified COPD Qualified Code(s): J44.9 - Chronic obstructive pulmonary disease, unspecified PLAN: Further treatment per the primary service. (5) Ascending aortic aneurysm: QUALIFIERS: Presence of rupture: without rupture Qualified Code(s): I71.21 - Aneurysm of the ascending aorta, without rupture PLAN: Patient is prior evaluation showing a 4.2 cm ascending aortic aneurysm which is being monitored. (6) Essential hypertension: PLAN: Patient's blood pressure will be readdressed once his rhythm is stabilized. PLAN: Plan 1. Will have the pacemaker formally interrogated and reprogrammed to see if we can obtain capture in the ventricle. There is likely the patient will require lead placement adjustment. 2. Patient is to be maintained at bedrest until we can further adjust the pacemaker and obtain capture. 3. Will plan on potential lead repositioning around noon July 06, [address] Pal HPI Consult Data Date of Consult: 07/05/24 HPI Narrative Reason for Consultation: Pacemaker malfunction HPI Narrative: WILIAN CAMPBELL, is a 79 M who presents with a 24 to 48-hour history of profound weakness and near syncope with change of position. This is very similar to the symptoms the patient had last weekend that prompted his original admission. At that time he was found to be in complete heart block. EKG in the emergency department was reviewed by myself showed the patient has anoccasional PVC or escape ventricular beat with complete heart block and an occasional ventricular paced captured beat. Heart rate was in the 35-40 bpm range. The patient's blood pressure was stable. Renal function remains stable a bump in his lactic acid of 2.7 that dropped down to 1.8 on recheck. The patient has beenafebrile his white count was elevated 23,000 dropped down to 18.8. He had just completed a steroid dose regimen for his COPD exacerbation. Blood pressure was 115?130/57?70. His bicarb was slightly down at 17. Since admission the patient's telemetry has shown sinus rhythm with complete heart block and occasional ventricular capture beats. He has done 3-4 capture beats in a row and then a lack of ventricular capture. The patient does appear to be appropriately sensing the atrium. I did discuss situation with the [employer] pacemaker computer help desk representative. She will be coming in to formally interrogate the pacemaker and see if voltage or switching to a unipolar device mechanismwould be able to capture the ventricle better. She did tell me that during the procedure with placement of the ventricular lead the patient went asystolic he did have good pacing and sensing thresholds at the time of implant. The patient denies utilizing his left arm over his head and reports he has kept it in the sling ever since he wasdischarged. The patient is resting comfortably in the seated position in bed eating breakfast. He denies any lightheadedness or significant shortness of breath. He reports that his COPD exacerbation has resolved. The patient had an echocardiogram June 30, 2024. That showed normal ejection fraction of 60% with no regional wall motion abnormality. Both atria are of normal size right ventricle was normal. The patient does have mild aortic stenosis. [facility] Medical History Pacemaker Presence of permanent cardiac pacemaker Esophageal diverticulum Ankylosing spondylitis Vision problems High blood pressure Back pain Arthritis Alcohol abuse Right bundle branch block (RBBB) Obstructive sleep apnea Hyperlipidemia Essential hypertension Ascending aortic aneurysm Tobacco use disorder, continuous Pneumonia Spondylitis Ankylosis Dermal hypersensitivity reaction Macular degeneration COPD (chronic obstructive pulmonary disease) Home Medications ?Medication ?Instructions ?Recorded ?Last Taken ?Type vit C 250 mg-vit E 90 mg-zinc 40 1 tablet PO DAILY eye health 06/21/20 Unknown History mg-copper 1 [id number]-egwbdd capsule (PreserVision AREDS-2) dupilumab 300 mg/2 mL subcutaneous 300 mg subcut Q2W e czema 07/11/21 Unknown History pen injector (Dupixent) cholecalciferol (vitamin D3) 125 125 mcg PO DAILY supp lement 01/14/23 Unknown History mcg (5,000 unit) capsule fluticasone fur. 100 mcg-umeclid 1 inh inhalation PRICILLA Y breathing 05/08/24 Unknown Rx 62.5 mcg-vilant 25 mcg #3 ea inhalat.powder (Trelegy Ellipta) simvastatin 40 mg tablet 40 mg PO DAILY cholesterol # 90 tabs 05/19/24 Unknown Rx losartan 50 mg tablet 50 mg PO DAILY blood pressur e #90 05/27/24 Unknown Rx tabs prednisone 20 mg tablet 40 mg (2 x 20 mg) PO DAILY # 10 tabs 06/30/24 Unknown Rx fluoride (sodium) 1.1 % dental applic PO DAILY 5 Unknown History cream (SF 5000 Plus) Allergy/AdvReac Type Severity Reaction Status Date / Time Iodinated Contrast Media AdvReac Mild Nausea Verified 07/04/24 20:25 Family History Father Psoriasis Thoracic aortic aneurysm (TAA) Mother Skin cancer Sister Lupus Thoracic aortic aneurysm (TAA) Breast cancer Brother Crohn's disease Ulcerative colitis Thoracic aortic aneurysm (TAA) Sister Psoriatic arthritis Breast cancer Other Uterine cancer Surgical History H/O chest tube placement History of tonsillectomy H/O colonoscopy Social History household members: none current occupational status: retired 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 Smoking Status: Current some day smoker tobacco type: cigarettes Tobacco: How many years used: 57 Electronic Cigarette Use: not used how long ago did patient quit smoking: patient cut down to about 0.5ppd second hand exposure: Yes (father smoked for a few years) quit status: has quit before alcohol intake: never substance use type: does not use what type of physical activity do you participate in: none seatbelt use: always do you feel safe at home: Yes ROS Constitutional Constitutional: Reports as per HPI Eyes Eyes: Reports loss of vision ENT HEENT: Reports systems reviewed and no addt'l complaints, except as documented Cardiovascular Cardiovascular: Reports as per HPI Respiratory/Chest Respiratory/Chest: Reports as per HPI Gastrointestinal Gastrointestinal: Reports systems reviewed and no addt'l complaints, except as documented Genitourinary Genitourinary: Reports as per HPI Musculoskeletal Musculoskeletal: Reports as per HPI Integumentary Integumentary: Reports systems reviewed and no addt'l complaints, except as documented Neurologic Neurologic: Reports systems reviewed and no addt'l complaints, except as documented Psychiatric Psychiatric: Reports systems reviewed and no addt'l complaints, except as documented Endocrine Endocrinology: Reports systems reviewed and no addt'l complaints, except as documented Hematologic/Lymphatic Hematologic/Lymphatic: Reports systems reviewed and no addt'l complaints, exceptas documented Allergic/Immunologic Allergic/Immunologic: Reports systems reviewed and no addt'l complaints, except as documented Physical Exam Const alert and oriented x3 HEENT normocephalic Eyes EOMs intact bilaterally Neck no JVD and no carotid bruits Chest Chest Narrative: Pacer incision site is healing well there is no evidence of accumulation of fluid. Chest: left pectoral incision Resp normal respiratory effort Auscultation: wheezes expiratory wheezes and posterior and diminished lung sounds diffuse Cardio Rate: bradycardia Rhythm: abnormal rhythm irregularly irregular Heart Sounds: S1 normal, S2 normal and murmur systolic (Difficult to auscultate due to pulmonary status) I/ soft mid; Negative for click or gallop GI normal to inspection, nondistended, normoactive bowel sounds Extremity no pedal edema Skin Skin Narrative: Pacer insertion site healing well. Neuro Neuro Narrative: Alert and oriented x 3. Have visual deficits related to macular degeneration. Psych mental status grossly normal Risk Stratification Risk Stratification Applicable: No Charges/Coding Visit Charges Inpatient E&M: 55057 Init Hosp L3 Objective Data Vital Signs: Vital Signs Temp Pulse Resp BP Pulse Ox O2 Del Method 97.8 F 40 L 18 115/57 L 95 Room Air 07/05/24 04:42 07/05/24 06:42 07/05/24 06:42 07/05/24 04:42 07/05/24 06:42 07/05/24 06:42 Oxygen Delivery Method Room Air Weight: 153 lb Body Mass Index (BMI) 22.6 Lab / Micro Data Attestation: I reviewed the patient's lab results. 07/05/24 02:02 07/05/24 02:02 Labs: Laboratory Results - last 24 hr 07/04/24 20:35: WBC 23.4 H, RBC 4.97, Hgb 15.0, Hct 43.9, MCV 88.3, MCH 30.2, MCHC 34.2, RDW Std Deviation 44.0 H, RDW Coeff of Benny 13.6, Plt Count 238, MPV 10.7, Immature Gran % (Auto) 0.800, Neut %(Auto) 91.7 H, Lymph % (Auto) 2.9 L, Yell % (Auto) 4.5, Eos % (Auto) 0.0, Baso % (Auto) 0.1, Absolute Neuts (auto) 21.5 H, Absolute Lymphs (auto) 0.69 L, Nucleated RBC % 0, Differential Comment SCANNED, PT 13.4, INR 1.0, APTT 24.2, Sodium 141, Potassium 4.5, Chloride 107, Carbon Dioxide 21.6, AnionGap 12, BUN 32 H, Creatinine 1.18, Estim Creat Clear Calc 50.76, Est GFR (MDRD) Non-Af 63, BUN/Creatinine Ratio 27.3 H, Glucose 285 H, Calcium 8.7, Total Bilirubin 1.18, Direct Bilirubin 0.54 H, AST 20, ALT 69 H, Alkaline Phosphatase 76, Total Protein 5.4 L, Albumin 3.7, Globulin 1.8 L 07/04/24 21:32: Lactic Acid 2.7 H* 07/04/24 22:25: Urine Color Yellow, Urine Clarity Clear, Urine pH 5.0, Ur Specific [place] 1.020, Urine Protein 100 H, Urine Glucose (UA) Normal, Urine Ketones Negative, Urine Occult Blood 10 H, Urine Nitrite Negative, Urine Bilirubin Negative, Urine Urobilinogen Normal, Ur Leukocyte Esterase 25 H, UrineRBC 0 SEEN, Urine WBC 0-5 SEEN, Ur Squamous Epith Cells 0-5 SEEN, Urine Bacteria0 SEEN, Urine Mucus 0 SEEN 07/05/24 02:02: WBC 18.8 H, RBC 4.34 L, Hgb 13.2, Hct 38.0 L, MCV 87.6, MCH 30.4, MCHC 34.7, RDW Std Deviation 44.3 H, RDW Coeff of Benny 13.7, Plt Count 194,MPV 10.9, Sodium 140, Potassium 4.2, Chloride 110 H, Carbon Dioxide 18.6 L, Anion Gap 11, BUN 37 H, Creatinine 1.05, Estim Creat Clear Calc 56.00, Est GFR (MDRD) Non-Af 72, BUN/Creatinine Ratio 35.6 H, Glucose 209 H, Lactic Acid 1.8, Calcium 8.3 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 with occasional pacer capture beats and ventricular escape beats.) Cardiology Labs/Tests 07/04/24 20:35: WBC 23.4 H, RBC 4.97, Hgb 15.0, Hct 43.9, MCV 88.3, MCH 30.2, MCHC 34.2, Plt Count 238, MPV 10.7, Immature Gran % (Auto) 0.800, Neut % (Auto) 91.7 H, Lymph % (Auto) 2.9 L, Yell % (Auto) 4.5, Eos % (Auto) 0.0, Baso % (Auto)0.1, Absolute Neuts (auto) 21.5 H, Nucleated RBC % 0, PT 13.4, INR 1.0, APTT 24.2, Sodium 141, Potassium 4.5, Chloride 107, Carbon Dioxide 21.6, Anion Gap 12, BUN 32 H, Creatinine 1.18, Est GFR (MDRD) Non-Af 63, BUN/Creatinine Ratio 27.3 H, Glucose 285 H, Calcium 8.7, Total Bilirubin 1.18, Direct Bilirubin 0.54 H 07/04/24 21:32: Lactic Acid 2.7 H* 07/04/24 22:25: Urine Color Yellow, Urine Clarity Clear, Urine pH 5.0, Ur Specific [place] 1.020, Urine Protein 100 H, Urine Glucose (UA) Normal, Urine Ketones Negative, Urine Occult Blood 10 H, Urine Nitrite Negative, Urine Bilirubin Negative, Urine Urobilinogen Normal, Ur Leukocyte Esterase 25 H, UrineRBC 0 SEEN, Urine WBC 0-5 SEEN 07/05/24 02:02: WBC 18.8 H, RBC 4.34 L, Hgb 13.2, Hct 38.0 L, MCV 87.6, MCH 30.4, MCHC 34.7, Plt Count 194, MPV 10.9, Sodium 140, Potassium 4.2, Chloride 110 H, Carbon Dioxide 18.6 L, Anion Gap 11, BUN 37 H, Creatinine 1.05, Est GFR (MDRD) Non-Af 72, BUN/Creatinine Ratio 35.6 H, Glucose 209 H, Lactic Acid 1.8, Calcium 8.3 Rhythm: EKG: ECHO: Stress Test: Cardiac Cath: PCI: CT Surgery: Holter monitor: EPS: PPM: CXR: Chest CT Scan: Radiography Diagnostic Testing: Radiology Impression Chest X-Ray 07/04/24 20:46 IMPRESSION: Hazy bibasilar airspace opacities, may represent congestion/edema. Stable left-sided dual lead cardiac pacemaker. Reading Location: [facility] X-Ray 07/04/24 21:07 IMPRESSION: Stable appearing left-sided dual lead cardiac pacemaker. Bibasilar hazy opacity may represent congestion/edema. Small left pleural effusion. Reading Location: [facility] 07/05/24 0940 Cosigner Signature (if applicable): CC: Dr. Marcial aCmacho DO; Dr. Lucia Trimble MD~ Signed [facility]04-20-2025 History and physical note Author Marcial Camacho [facility] Note Date/Time July 04, 2024 11: 37pm [facility] Medical Records Department [address] [place] [address] H&P Exam - Hospitalist 07/04/242204 MR#: [id number] Acct: [id number] Name: WILIAN CAMPBELL Rep #:[id number] : 1945 79 From: Marcial renee DO PCP: Dr. Lucia Trimble MD Status:ADM KENNETH Location: [place] [address] HPI - General General Date of Admission: 07/04/24 Date of Service: 07/04/24 Chief Complaint: Lightheadedness HPI Narrative WILIAN CAMPBELL, is a 79 M who presented to [facility] ED on 07/04/2024 with lightheadedness. Patient was recently hospitalized 06/27-06/30 forcomplete heart block. Had pacemaker placement done on 06/[address] Pal. Tolerated procedure without issue and had good pacemaker capture on discharge, was discharged home in stable condition. However, he began to have lightheadedness especially with exertion beginning on and it has worsened over the past few days. Today his daughter checked his heart rate and found it was in the 30s to 50s so they called the matching machine operator who recommended he come to the ED for further evaluation. In the ED he was found to have a heart rate in the 30s to 40s. EKG showed pacemaker spikes but no beats following from this. Case was discussed with Dr. Velarde given concern for pacemaker failure. Chest x-ray and KUB were obtained and showed that the atrial and ventricular wires were in good position. Pacemaker pocket looked good, no concern for movement of pacemaker there. Patient was treated for COPD exacerbation as well during recent admission and completed steroids a few days ago. WBC count was 23,000 but patient was afebrile and labs otherwise normal, and chest imaging appeared similar to previous. Patient noted that cough and shortness of breath was improving. Cardiology noted that he may just need the voltage increased to have pacemaker capture, but pacemaker rep will come into the hospital tomorrow to evaluate. Hospitalist was then contacted for admission. I saw the patient at bedside in the ED, daughter was present. Patient was sitting back comfortably in bed, conversing normally, in no acute distress. Heart rate was consistently in the 30s to 40s during my encounter with him. Blood pressure was stable in the 110s to 120 systolic. He denied any lightheadedness or dizziness at rest. Noted again to me that his cough and shortness of breath were much improved from previous. He denied any other acuteconcerns at this time. [facility] Medical History Pacemaker Presence of permanent cardiac pacemaker Esophageal diverticulum Ankylosing spondylitis Vision problems High blood pressure Back pain Arthritis Alcohol abuse Right bundle branch block (RBBB) Obstructive sleep apnea Hyperlipidemia Essential hypertension Ascending aortic aneurysm Tobacco use disorder, continuous Pneumonia Spondylitis Ankylosis Dermal hypersensitivity reaction Macular degeneration COPD (chronic obstructive pulmonary disease) Home Medications ?Medication ?Instructions ?Recorded ?Last Taken ?Type vit C 250 mg-vit E 90 mg-zinc 40 1 tablet PO DAILY eye health 06/21/20 Unknown History mg-copper 1 pg-cmyirm-[id number] capsule (PreserVision AREDS-2) dupilumab 300 mg/2 mL subcutaneous 300 mg subcut Q2W e czema 07/11/21 Unknown History pen injector (Dupixent) cholecalciferol (vitamin D3) 125 125 mcg PO DAILY supp lement 01/14/23 Unknown History mcg (5,000 unit) capsule fluticasone fur. 100 mcg-umeclid 1 inh inhalation PRICILLA Y breathing 05/08/24 Unknown Rx 62.5 mcg-vilant 25 mcg #3 ea inhalat.powder (Trelegy Ellipta) simvastatin 40 mg tablet 40 mg PO DAILY cholesterol # 90 tabs 05/19/24 Unknown Rx losartan 50 mg tablet 50 mg PO DAILY blood pressur e #90 05/27/24 Unknown Rx tabs prednisone 20 mg tablet 40 mg (2 x 20 mg) PO DAILY # 10 tabs 06/30/24 Unknown Rx fluoride (sodium) 1.1 % dental applic PO DAILY 5 Unknown History cream (SF 5000 Plus) Allergy/AdvReac Type Severity Reaction Status Date / Time Iodinated Contrast Media AdvReac Mild Nausea Verified 07/04/24 20:25 Family History Father Psoriasis Thoracic aortic aneurysm (TAA) Mother Skin cancer Sister Lupus Thoracic aortic aneurysm (TAA) Breast cancer Brother Crohn's disease Ulcerative colitis Thoracic aortic aneurysm (TAA) Sister Psoriatic arthritis Breast cancer Other Uterine cancer Surgical History H/O chest tube placement History of tonsillectomy H/O colonoscopy Social History household members: none current occupational status: retired 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 Smoking Status: Current some day smoker tobacco type: cigarettes Tobacco: How many years used: 57 Electronic Cigarette Use: not used how long ago did patient quit smoking: patient cut down to about 0.5ppd second hand exposure: Yes (father smoked for a few years) quit status: has quit before alcohol intake: never substance use type: does not use what type of physical activity do you participate in: none seatbelt use: always do you feel safe at home: Yes ROS Constitutional Constitutional: Denies chills, fatigue, fever(s) or weakness Eyes Eyes: Denies change in vision Cardiovascular Cardiovascular: Reports lightheadedness; Denies chest pain, dyspnea on exertion,edema, palpitations or syncope Respiratory/Chest Respiratory/Chest: Reports cough; Denies productive cough, shortness of breath at rest, shortness of breath with exertion or wheezing Gastrointestinal Gastrointestinal: Denies abdominal pain Musculoskeletal Musculoskeletal: Denies arthralgias or myalgias Neurologic Neurologic: Reports dizziness; Denies headache(s) Vital Signs Vital Signs Vital Signs: 07/04/24 20:23 07/04/24 20:23 07/04/24 20:37 Temperature 98.3 F Temperature Source Temporal Pulse Rate 31 L 53 L Respiratory Rate 20 H 22 H Respiratory Effort Short of Breath Blood Pressure 133/38 H 155/47 H Blood Pressure Mean 69 83 Pulse Ox 92 97 Oxygen Delivery Method Room Air Room Air 07/04/24 21:00 Temperature Temperature Source Pulse Rate 36 L Respiratory Rate 21 H Respiratory Effort Blood Pressure 129/48 H Blood Pressure Mean 71 Pulse Ox 98 Oxygen Delivery Method Weight Weight: 71.6 kg Body Mass Index (BMI) 23.3 Physical Exam Const alert, oriented x3, no apparent distress and average body habitus Constitutional Narrative: Pleasant elderly male, sitting back comfortably in bed, conversing normally, in no acute distress. General Appearance: cooperative and comfortable HEENT normocephalic, head/scalp atraumatic, hearing grossly normal bilaterally, nasal mucous membranes and turbinates normal and moist oral mucous membranes Eyes PERRL, EOMs intact bilaterally and conjunctivae normal Neck full ROM Chest inspection of chest normal Chest Narrative: Pacemaker site appears well-healed with no infectious findings noted. Resp normal respiratory effort, normal air movement, no use of accessory muscles and clear to auscultation bilaterally Cardio no murmurs and peripheral pulses 2+ throughout Cardio Narrative: Bradycardic, irregular rhythm. GI normal to inspection, nondistended, normoactive bowel sounds, soft to palpation,non-tender and non-distended Back/Spine normal ROM Extremity normal to inspection, full ROM and no pedal edema Skin no rashes or lesions noted Psych mental status grossly normal Results Lab / Micro Data 07/04/24 20:35 07/04/24 20:35 Labs: Laboratory Results - last 24 hr 07/04/24 20:35: WBC 23.4 H, RBC 4.97, Hgb 15.0, Hct 43.9, MCV 88.3, MCH 30.2, MCHC 34.2, RDW Std Deviation 44.0 H, RDW Coeff of Benny 13.6, Plt Count 238, MPV 10.7, Immature Gran % (Auto) 0.800, Neut % (Auto) 91.7 H, Lymph % (Auto) 2.9 L, Yell % (Auto) 4.5, Eos % (Auto) 0.0, Baso % (Auto) 0.1, Absolute Neuts (auto) 21.5 H, Absolute Lymphs (auto) 0.69 L, Nucleated RBC % 0, Differential Comment SCANNED, PT 13.4, INR 1.0, APTT 24.2, Sodium 141, Potassium 4.5, Chloride 107, Carbon Dioxide 21.6, Anion Gap 12, BUN 32 H, Creatinine 1.18, Estim Creat Clear Calc 50.76, Est GFR (MDRD) Non-Af 63, BUN/Creatinine Ratio 27.3 H, Glucose 285 H, Calcium 8.7 Imaging Radiology Impression Chest X-Ray 07/04/24 20:46 IMPRESSION: Hazy bibasilar airspace opacities, may represent congestion/edema. Stable left-sided dual lead cardiac pacemaker. [facility] KUB X-Ray 07/04/24 21:07 IMPRESSION: Stable appearing left-sided dual lead cardiac pacemaker. Bibasilar hazy opacity may represent congestion/edema. Small left pleural effusion. Reading Location: [facility] Assessment & Plan Assessment/Plan (1) Pacemaker failure: (2) Leukocytosis: PLAN: Plan Patient is a 79-year-old male who presented to [facility] ED on 07/04/2024 with lightheadedness. 1. 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 Admit under observation status to PCU. Cardiology consulted. S/p pacemaker placement on 06/29 for complete heart block. Heart rate 30s to 40s in ED and EKGshowed pacemaker spikes but no capture. Per cardiology, may just need voltage increased but pacemaker rep will come into hospital tomorrow to evaluate. Bloodpressure stable at rest but given presyncopal symptoms with standing and exertion, will have patient only ambulate with assistance. 2. Leukocytosis ? WBC count 23 on admit. Afebrile and noninfectious appearing. Very likely dueto recent steroid course for COPD exacerbation, low concern for active infection. Follow-up a.m. CBC. 3. COPD ? Stable on room air at rest, not in acute exacerbation. Recently treated for COPD exacerbation on admission last week with good improvement in symptoms. Chest x- ray on admit showed hazy bibasilar airspace opacities but these appear similar to previous. Continue home long-acting inhaler and albuterol as needed. Chronic medical conditions: ? Hypertension: Will hold losartan for now. ? Hyperlipidemia: Continue home statin. ? Tobacco abuse: NRT available while inpatient as needed. Discussed cessation. ? History of ankylosing spondylitis: Continue Dupixent in outpatient setting. ? Ascending aortic aneurysm: 4.[address] from 2021. Being followed as outpatient with most recent measurement of 4.1 cm. Has repeat scan planned in September/October 2024. No inpatient needs. ? 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 ? HARDEEP: Continue CPAP. DVT prophylaxis: Lovenox CODE STATUS: Full code, verified Expected disposition: Home, 1 to 2 days Total clinical time spent by myself addressing the patient's medical issues, reviewing all the data, and collaborating with patient's care team: 75 minutes. Charges/Coding Visit Charges Inpatient E&M: 37062 Init Hosp L3 07/04/24 7398 <Electronically signed by Marcial Camacho DO> Cosigner Signature (if applicable): CC: Dr. Marcial Camacho DO; Dr. Lucia Trimble MD~ Signed [facility] Work Phone: [phone] Discharge summary Author Ananda Garner [facility] Note Date/Time July 04, 2024 10: 51pm [facility] Medical Records Department [address] [place] [address] Emergency Department Summary 07/04/24 MR#: [id number] Acct: [id number] Name: WILIAN CAMPBELL Rep #:[id number] : 1945 79 From: Ananda Zamarripa PCP: Dr. Lucia Trimble MD Status:ADM KENNETH Location: [address] History of Present Illness Chief Complaint: Palpitations Informant: patient and family Narrative Narrative: Brought in by daughter after speaking with on-call cardiology for lightheaded symptoms and low heart rate. He status post a pacemaker this past Saturday for complete heart block. He was hospitalized over the weekend. He went home on Saturday 4 days ago was doing well for 2 days. Following day started having lightheaded symptoms similar to what led to his pacemaker. He denied any strenuous activities any reaching or carrying any thing heavy. Today daughter checked heart rate 30s to 50s. He called the matching machine operator was sent here for evaluation. Denied any syncopal episodes denies chest pains. COPD sleep apnea with CPAP at night. He is not on any blood thinners. Patient has a [employer] pacemaker. Note there was call him from cardiology, Dr. Velarde with concerns for failed pacemaker. Prior similar symptoms: Yes [facility] Medical History Pacemaker Presence of permanent cardiac pacemaker Esophageal diverticulum Ankylosing spondylitis Vision problems High blood pressure Back pain Arthritis Alcohol abuse Right bundle branch block (RBBB) Obstructive sleep apnea Hyperlipidemia Essential hypertension Ascending aortic aneurysm Tobacco use disorder, continuous Pneumonia Spondylitis Ankylosis Dermal hypersensitivity reaction Macular degeneration COPD (chronic obstructive pulmonary disease) Home Medications ?Medication ?Instructions ?Recorded ?Last Taken ?Type vit C 250 mg-vit E 90 mg-zinc 40 1 tablet PO DAILY eye health 06/21/20 Unknown History mg-copper 1 [id number] capsule (PreserVision AREDS-2) dupilumab 300 mg/2 mL subcutaneous 300 mg subcut Q2W e czema 07/11/21 Unknown History pen injector (Dupixent) cholecalciferol (vitamin D3) 125 125 mcg PO DAILY supp lement 01/14/23 Unknown History mcg (5,000 unit) capsule fluticasone fur. 100 mcg-umeclid 1 inh inhalation PRICILLA Y breathing 05/08/24 Unknown Rx 62.5 mcg-vilant 25 mcg #3 ea inhalat.powder (Trelegy Ellipta) simvastatin 40 mg tablet 40 mg PO DAILY cholesterol # 90 tabs 05/19/24 Unknown Rx losartan 50 mg tablet 50 mg PO DAILY blood pressur e #90 05/27/24 Unknown Rx tabs prednisone 20 mg tablet 40 mg (2 x 20 mg) PO DAILY # 10 tabs 06/30/24 Unknown Rx fluoride (sodium) 1.1 % dental applic PO DAILY 5 Unknown History cream (SF 5000 Plus) Allergy/AdvReac Type Severity Reaction Status Date / Time Iodinated Contrast Media AdvReac Mild Nausea Verified 07/04/24 20:25 Family History Father Psoriasis Thoracic aortic aneurysm (TAA) Mother Skin cancer Sister Lupus Thoracic aortic aneurysm (TAA) Breast cancer Brother Crohn's disease Ulcerative colitis Thoracic aortic aneurysm (TAA) Sister Psoriatic arthritis Breast cancer Other Uterine cancer Surgical History H/O chest tube placement History of tonsillectomy H/O colonoscopy Social History household members: none current occupational status: retired 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[employer] Smoking Status: Current every day smoker tobacco type: cigarettes Tobacco: How many years used: 57 Electronic Cigarette Use: not used how long ago did patient quit smoking: patient cut down to about 0.5ppd second hand exposure: Yes (father smoked for a few years) quit status: has quit before alcohol intake: never substance use type: does not use what type of physical activity do you participate in: none seatbelt use: always do you feel safe at home: Yes ROS ROS ED Constitutional Constitutional ED: Denies chills, fever(s) or sweats ENT ENT ED: Denies sore throat Cardiovascular Cardiovascular: Reports other Details: Lightheaded symptoms. ; Denies chest pain, leg edema, palpitations or racing heartbeat Respiratory/Chest Respiratory/Chest: Denies cough, dyspnea or dyspnea on exertion Gastrointestinal Gastrointestinal: Denies abdominal pain, diarrhea, nausea or vomiting Genitourinary Genitourinary ED: Denies dysuria, hematuria or urinary frequency Musculoskeletal Musculoskeletal: Denies back pain, extremity pain or neck pain Integumentary Denies rash or wounds Neurologic Neurologic: Denies headache(s), paresthesias or weakness EXAM Physical Exam Const Vital Signs: 07/04/24 20:23 07/04/24 20:23 07/04/24 20:37 Temperature 98.3 F Temperature Source Temporal Pulse Rate 31 L 53 L Respiratory Rate 20 H 22 H Respiratory Effort Short of Breath Blood Pressure 133/38 H 155/47 H Blood Pressure Mean 69 83 Pulse Ox 92 97 Oxygen Delivery Method Room Air Room Air 07/04/24 21:00 07/04/24 22:00 Temperature Temperature Source Pulse Rate 36 L 47 L Respiratory Rate 21 H 22 H Respiratory Effort Blood Pressure 129/48 H 127/40 H Blood Pressure Mean 71 69 Pulse Ox 98 96 Oxygen Delivery Method Positive well nourished and well developed General Appearance ED: well developed and NAD HEENT Reports moist mucous membranes normocephalic and atraumatic Eyes General Eye ED: Yes normal appearance of both eyes Neck full ROM Chest Wall Chest: other Left upper chest wall: Pacemaker device, Steri-Strips of the wound,no drainage no erythema no fluctuance. ; Negative for tenderness Resp normal respiratory effort and normal air movement Effort and Inspection: symmetric chest movement; Negative for respiratory distress Cardio regular rhythm and no murmurs Rate: bradycardia Peripheral Pulses: pulses 2+ throughout GI normal to inspection, nondistended, normoactive bowel sounds and non-tender Palpation: Negative for guarding or rebound tenderness present Extremity normal to inspection General Extremety ED: Negative for edema or tenderness General Extremity: Negative for edema Neuro oriented x3 and no sensory deficits noted Neuro Narrative: No focal deficits Sensorium / Orientation: awake and alert Skin no rashes or lesions noted and no wounds MDM MDM MDM Narrative Medical decision making narrative: Interventions / MDM: Differential diagnosis: Pacemaker malfunction, symptomatic bradycardia, leukocytosis Diagnosis considered but do not suspect: N/A My EKG interpretation: Heart rate 43, pacemaker spikes however no following of beats from this. Concerns for failure to capture further. Imaging independently reviewed and interpreted by myself: 1 view chest x-ray: Initial read noted the atrial wires in place, could not appreciate the ventricular wire as it runs below the film. Modified KUB 1 view: Pacemaker leadin the ventricle. External documents reviewed: N/A Test considered but not ordered:N/A ED course: Patient bradycardic stable blood pressure systolic 133. EKG concernsfor failure to capture with bradycardia. Labs will check chest x-ray, will interrogate his pacemaker. 2119: Chest x-ray had the atrial wire in place could not appreciate the ventricular wire discussed with radiology department modified KUB obtained and reviewed and is noted in the ventricle. No floating wires. Results white countreturned at 23.4 up from 4 recently. He is on steroids with his last dose takentoday. Cough is improving no urinary symptoms. Respiratory rate 22, 2 out of 4SIRS criteria. No signs infection of his pacemaker pocket. Added lactic acid and blood cultures. 2145: I spoke with matching machine operator Dr. Velarde, sent images through backline. He agrees that there is failure to capture on EKG. Also agrees leads appear in appropriate places on x-ray. Sent some information from the interrogation, he states possibility voltage just needs to be turned up. We will try to get a hold of the rep to get them to see the patient tomorrow in the hospital. I discussed the leukocytosis, agrees with the infectious workup while in the hospital. 2149: I will speak with hospitalist for admission. I did speak with the rep [email or web address], discussed the findings and discussion with matching machine operator, he did feel that turning of the voltage may work for this patient. This will need in person evaluation. He recommended calling back to get the local rep to come evaluate the patient. 2207: I spoke with Dr. Camacho, will admit to the PCU for further management. 2209: I spoke with local [employer] rep, Anne, she states she will be able to come tomorrow morning to the hospital to evaluate. Lactate has returned to 0.7. No infectious findings at this point. This was likely secondary to his bradycardia. Re-evaluation: stable Disposition discussed with patient/family/significant other: Patient and daughter Case discussed with consulting clinician: Cardiology, hospitalist This note was generated with Cono-C dictation software. It may contain incorrectwords, spelling, and punctuation that were not noted in checking the note beforesigning. Lab Data Attestation: I reviewed the patient's lab results. Labs: Laboratory Results - last 24 hr 07/04/24 07/04/24 20:35 21:32 WBC 23.4 H RBC 4.97 Hgb 15.0 Hct 43.9 MCV 88.3 MCH 30.2 MCHC 34.2 RDW Std Deviation 44.0 H RDW Coeff of Benny 13.6 Plt Count 238 MPV 10.7 Immature Gran % (Auto) 0.800 Neut % (Auto) 91.7 H Lymph % (Auto) 2.9 L Yell % (Auto) 4.5 Eos % (Auto) 0.0 Baso % (Auto) 0.1 Absolute Neuts (auto) 21.5 H Absolute Lymphs (auto) 0.69 L Nucleated RBC % 0 Differential Comment SCANNED PT 13.4 INR 1.0 APTT 24.2 Sodium 141 Potassium 4.5 Chloride 107 Carbon Dioxide 21.6 Anion Gap 12 BUN 32 H Creatinine 1.18 Estim Creat Clear Calc 50.76 Est GFR (MDRD) Non-Af 63 BUN/Creatinine Ratio 27.3 H Glucose 285 H Lactic Acid 2.7 H* Calcium 8.7 Total Bilirubin 1.18 Direct Bilirubin 0.54 H AST 20 ALT 69 H Alkaline Phosphatase 76 Total Protein 5.4 L Albumin 3.7 Globulin 1.8 L Radiography Diagnostic Testing: Clinical Impression(s) from Imaging Studies Chest X-Ray 07/04/24 20:46 IMPRESSION: Hazy bibasilar airspace opacities, may represent congestion/edema. Stable left-sided dual lead cardiac pacemaker. Reading Location: [facility] KUB X-Ray 07/04/24 21:07 IMPRESSION: Stable appearing left-sided dual lead cardiac pacemaker. Bibasilar hazy opacity may represent congestion/edema. Small left pleural effusion. Reading Location: [facility] Critical Care Time Critical care time (excluding procedures): Discussing w/Patient &/or Family/CareGiver, Discussing w/Consultants, Arranging Admission or Transfer, Performing Direct Patient Care at Bedside and - (35 minutes) Discharge Plan Dx/Rx/DC Orders Clinical Impression: Pacemaker failure, Bradycardia, Leukocytosis Disposition Disposition: Acute Care Hospital [facility] Discharge Date/Time: 07/04/24 22:45 What to do if you have Problems For any increased pain, shortness of breath, bleeding, nausea or vomiting, chestpain, or any unexpected problems, contact your Primary Care Provider. Call [facility] ([phone]) or report to the closest Emergency Room. Call 911 if necessary. 07/04/242250 <Electronically signed by Ananda Zamarripa> Cosigner Signature (if applicable): CC: Dr. Lucia Trimble MD ~ Signed [facility] Work Phone: [phone] History and physical note [facility] Medical Records Department [address] [place] [address] H&P Exam - Hospitalist 07/04/242204 MR#: [id number] Acct: [id number] Name: WILIAN CAMPBELL Rep #:[id number] : 1945 79 From: Marcial Elamgildardo renee DO PCP: Dr. Lucia Trimble MD Status:ADM KENNETH Location: [place] [address] HPI - General General Date of Admission: 07/04/24 Date of Service: 07/04/24 Chief Complaint: Lightheadedness HPI Narrative WILIAN CAMPBELL, is a 79 M who presented to [facility] ED on 07/04/2024 with lightheadedness. Patient was recently hospitalized 06/27-06/30 forcomplete heart block. Had pacemaker placement done on 06/[address] Pal. Tolerated procedure without issue and had good pacemaker capture on discharge, was discharged home in stable condition. However, he began to have lightheadedness especially with exertion beginning on and it has worsened over the past few days. Today his daughter checked his heart rate and found it was in the 30s to 50s so they called the matching machine operator who recommended he come to the ED for further evaluation. In the ED he was found to have a heart rate in the 30s to 40s. EKG showed pacemaker spikes but no beats following from this. Case was discussed with Dr. Velarde given concern for pacemaker failure. Chest x-ray and KUB were obtained and showed that the atrial and ventricular wires were in good position. Pacemaker pocket looked good, no concern for movement of pacemaker there. Patient was treated for COPD exacerbation as well during recent admission and completed steroids a few days ago. WBC countwas 23,000 but patient was afebrile and labs otherwise normal, and chest imaging appeared similar to previous. Patient noted that cough and shortness of breath was improving. Cardiology noted that hemay just need the voltage increased to have pacemaker capture, but pacemaker rep will come into thehospital tomorrow to evaluate. Hospitalist was then contacted for admission. I saw the patient at bedside in the ED, daughter was present. Patient was sitting back comfortably in bed, conversing normally, in no acute distress. Heart rate was consistently in the 30s to 40s during my encounter with him. Blood pressure was stable in the 110s to 120 systolic. He denied any light headedness or dizziness at rest. Noted again to me that his cough and shortness of breath were muchimproved from previous. He denied any other acuteconcerns at this time. [facility] Medical History Pacemaker Presence of permanent cardiac pacemaker Esophageal diverticulum Ankylosing spondylitis Vision problems High blood pressure Back pain Arthritis Alcohol abuse Right bundle branch block (RBBB) Obstructive sleep apnea Hyperlipidemia Essential hypertension Ascending aortic aneurysm Tobacco use disorder, continuous Pneumonia Spondylitis Ankylosis Dermal hypersensitivity reaction Macular degeneration COPD (chronic obstructive pulmonary disease) Home Medications ?Medication ?Instructions ?Recorded ?Last Taken ?Type vit C 250 mg-vit E 90 mg-zinc 40 1 tablet PO DAILY eye health 06/21/20 Unknown History mg-copper 1 oo-qyqosl-icfsmp capsule (PreserVision AREDS-2) dupilumab 300 mg/2 mL subcutaneous 300 mg subcut Q2W e czema 07/11/21 Unknown History pen injector (Dupixent) cholecalciferol (vitamin D3) 125 125 mcg PO DAILY supp lement 01/14/23 Unknown History mcg (5,000 unit) capsule fluticasone fur. 100 mcg-umeclid 1 inh inhalation PRICILLA Y breathing 05/08/24 Unknown Rx 62.5 mcg-vilant 25 mcg #3 ea inhalat.powder (Trelegy Ellipta) simvastatin 40 mg tablet 40 mg PO DAILY cholesterol # 90 tabs 05/19/24 Unknown Rx losartan 50 mg tablet 50 mg PO DAILY blood pressur e #90 05/27/24 Unknown Rx tabs prednisone 20 mg tablet 40 mg (2 x 20 mg) PO DAILY # 10 tabs 06/30/24 Unknown Rx fluoride (sodium) 1.1 % dental applic PO DAILY 5 Unknown History cream (SF 5000 Plus) Allergy/AdvReac Type Severity Reaction Status Date / Time Iodinated Contrast Media AdvReac Mild Nausea Verified 07/04/24 20:25 Family History Father Psoriasis Thoracic aortic aneurysm (TAA) Mother Skin cancer Sister Lupus Thoracic aortic aneurysm (TAA) Breast cancer Brother Crohn's disease Ulcerative colitis Thoracic aortic aneurysm (TAA) Sister Psoriatic arthritis Breast cancer Other Uterine cancer Surgical History H/O chest tube placement History of tonsillectomy H/O colonoscopy Social History household members: none current occupational status: retired 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 Smoking Status: Current some day smoker tobacco type: cigarettes Tobacco: How many years used: 57 Electronic Cigarette Use: not used how long ago did patient quit smoking: patient cut down to about 0.5ppd second hand exposure: Yes (father smoked for a few years) quit status: has quit before alcohol intake: never substance use type: does not use what type of physical activity do you participate in: none seatbelt use: always do you feel safe at home: Yes ROS Constitutional Constitutional: Denies chills, fatigue, fever(s) or weakness Eyes Eyes: Denies change in vision Cardiovascular Cardiovascular: Reports lightheadedness; Denies chest pain, dyspnea on exertion,edema, palpitationsor syncope Respiratory/Chest Respiratory/Chest: Reports cough; Denies productive cough, shortness of breath at rest, shortness of breath with exertion or wheezing Gastrointestinal Gastrointestinal: Denies abdominal pain Musculoskeletal Musculoskeletal: Denies arthralgias or myalgias Neurologic Neurologic: Reports dizziness; Denies headache(s) Vital Signs Vital Signs Vital Signs: 07/04/24 20:23 07/04/24 20:23 07/04/24 20:37 Temperature 98.3 F Temperature Source Temporal Pulse Rate 31 L 53 L Respiratory Rate 20 H 22 H Respiratory Effort Short of Breath Blood Pressure 133/38 H 155/47 H Blood Pressure Mean 69 83 Pulse Ox 92 97 Oxygen Delivery Method Room Air Room Air 07/04/24 21:00 Temperature Temperature Source Pulse Rate 36 L Respiratory Rate 21 H Respiratory Effort Blood Pressure 129/48 H Blood Pressure Mean 71 Pulse Ox 98 Oxygen Delivery Method Weight Weight: 71.6 kg Body Mass Index (BMI) 23.3 Physical Exam Const alert, oriented x3, no apparent distress and average body habitus Constitutional Narrative: Pleasant elderly male, sitting back comfortably in bed, conversing normally, in no acute distress. General Appearance: cooperative and comfortable HEENT normocephalic, head/scalp atraumatic, hearing grossly normal bilaterally, nasal mucous membranes and turbinates normal and moist oral mucous membranes Eyes PERRL, EOMs intact bilaterally and conjunctivae normal Neck full ROM Chest inspection of chest normal Chest Narrative: Pacemaker site appears well-healed with no infectious findings noted. Resp normal respiratory effort, normal air movement, no use of accessory muscles and clear to auscultation bilaterally Cardio no murmurs and peripheral pulses 2+ throughout Cardio Narrative: Bradycardic, irregular rhythm. GI normal to inspection, nondistended, normoactive bowel sounds, soft to palpation,non-tender and non-distended Back/Spine normal ROM Extremity normal to inspection, full ROM and no pedal edema Skin no rashes or lesions noted Psych mental status grossly normal Results Lab / Micro Data 07/04/24 20:35 07/04/24 20:35 Labs: Laboratory Results - last 24 hr 07/04/24 20:35: WBC 23.4 H, RBC 4.97, Hgb 15.0, Hct 43.9, MCV 88.3, MCH 30.2, MCHC 34.2, RDW Std Deviation 44.0 H, RDW Coeff of Benny 13.6, Plt Count 238, MPV 10.7, Immature Gran % (Auto) 0.800, Neut %(Auto) 91.7 H, Lymph % (Auto) 2.9 L, Yell % (Auto) 4.5, Eos % (Auto) 0.0, Baso % (Auto) 0.1, Absolute Neuts (auto) 21.5 H, Absolute Lymphs (auto) 0.69 L, Nucleated RBC % 0, Differential Comment SCANNED, PT 13.4, INR 1.0, APTT 24.2, Sodium 141, Potassium 4.5, Chloride 107, Carbon Dioxide 21.6, AnionGap 12, BUN 32 H, Creatinine 1.18, Estim Creat Clear Calc 50.76, Est GFR (MDRD) Non-Af 63, BUN/Creatinine Ratio 27.3 H, Glucose 285 H, Calcium 8.7 Imaging Radiology Impression Chest X-Ray 07/04/24 20:46 IMPRESSION: Hazy bibasilar airspace opacities, may represent congestion/edema. Stable left-sided dual lead cardiac pacemaker. Reading Location: [facility] X-Ray 07/04/24 21:07 IMPRESSION: Stable appearing left-sided dual lead cardiac pacemaker. Bibasilar hazy opacity may represent congestion/edema. Small left pleural effusion. Reading Location: [facility] Assessment & Plan Assessment/Plan (1) Pacemaker failure: (2) Leukocytosis: PLAN: Plan Patient is a 79-year-old male who presented to [facility] ED on 07/04/2024 with lightheadedness. 1. 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 Admit under observation status to PCU. Cardiology consulted. S/p pacemaker placement on 06/29 for complete heart block. Heart rate 30s to 40s in ED and EKGshowed pacemaker spikes but no capture. Percardiology, may just need voltage increased but pacemaker rep will come into hospital tomorrow to evaluate. Bloodpressure stable at rest but given presyncopal symptoms with standing and exertion, will have patient only ambulate with assistance. 2. Leukocytosis ? WBC count 23 on admit. Afebrile and noninfectious appearing. Very likely dueto recent steroid course for COPD exacerbation, low concern for active infection. Follow-up a.m. CBC. 3. COPD ? Stable on room air at rest, not in acute exacerbation. Recently treated for COPD exacerbation on admission last week with good improvement in symptoms. Chest x-ray on admit showed hazy bibasilar airspace opacities but these appear similar to previous. Continue home long-acting inhaler and albuterol as needed. Chronic medical conditions: ? Hypertension: Will hold losartan for now. ? Hyperlipidemia: Continue home statin. ? Tobacco abuse: NRT available while inpatient as needed. Discussed cessation. ? History of ankylosing spondylitis: Continue Dupixent in outpatient setting. ? Ascending aortic aneurysm: 4.[address] from 2021. Being followed as outpatient with most recent measurement of 4.1 cm. Has repeat scan planned in September/October 2024. No inpatient needs. ? 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 ? HARDEEP: Continue CPAP. DVT prophylaxis: Lovenox CODE STATUS: Full code, verified Expected disposition: Home, 1 to 2 days Total clinical time spent by myself addressing the patient's medical issues, reviewing all the data, and collaborating with patient's care team: 75 minutes. Charges/Coding Visit Charges Inpatient E&M: 08707 Init Hosp L3 07/04/24 2337 Cosigner Signature (if applicable): CC: Dr. Marcial Camacho DO; Dr. Lucia Trimble MD~ Signed [facility]04-19-2025 Discharge summary [facility] Medical Records Department [address] [place] [address] Emergency Department Summary 07/04/24 MR#: [id number] Acct: [id number] Name: WILIAN CAMPBELL Rep #:[id number] : 1945 79 From: Ananda Zamarripa PCP: Dr. Lucia Trimble MD Status:ADM KENNETH Location: [address] History of Present Illness Chief Complaint: Palpitations Informant: patient and family Narrative Narrative: Brought in by daughter after speaking with on-call cardiology for lightheaded symptoms and low heart rate. He status post a pacemaker this past Saturday for complete heart block. He was hospitalized over the weekend. He went home on Saturday 4 days ago was doing well for 2 days. Following day started having lightheaded symptoms similar to what led to his pacemaker. He denied any strenuous activitiesany reaching or carrying any thing heavy. Today daughter checked heart rate 30s to 50s. He called the matching machine operator was sent here for evaluation. Denied any syncopal episodes denies chest pains. COPD sleep apnea with CPAP at night. He is not on any blood thinners. Patient has a [employer] pacemaker. Note there was call him from cardiology, Dr. Velarde with concerns for failed pacemaker. Prior similar symptoms: Yes PFSH PFSH Medical History Pacemaker Presence of permanent cardiac pacemaker Esophageal diverticulum Ankylosing spondylitis Vision problems High blood pressure Back pain Arthritis Alcohol abuse Right bundle branch block (RBBB) Obstructive sleep apnea Hyperlipidemia Essential hypertension Ascending aortic aneurysm Tobacco use disorder, continuous Pneumonia Spondylitis Ankylosis Dermal hypersensitivity reaction Macular degeneration COPD (chronic obstructive pulmonary disease) Home Medications ?Medication ?Instructions ?Recorded ?Last Taken ?Type vit C 250 mg-vit E 90 mg-zinc 40 1 tablet PO DAILY eye health 06/21/20 Unknown History mg-copper 1 kh-ekzkkh-cbubbx capsule (PreserVision AREDS-2) dupilumab 300 mg/2 mL subcutaneous 300 mg subcut Q2W e czema 07/11/21 Unknown History pen injector (Dupixent) cholecalciferol (vitamin D3) 125 125 mcg PO DAILY supp lement 01/14/23 Unknown History mcg (5,000 unit) capsule fluticasone fur. 100 mcg-umeclid 1 inh inhalation PRICILLA Y breathing 05/08/24 Unknown Rx 62.5 mcg-vilant 25 mcg #3 ea inhalat.powder (Trelegy Ellipta) simvastatin 40 mg tablet 40 mg PO DAILY cholesterol # 90 tabs 05/19/24 Unknown Rx losartan 50 mg tablet 50 mg PO DAILY blood pressur e #90 05/27/24 Unknown Rx tabs prednisone 20 mg tablet 40 mg (2 x 20 mg) PO DAILY # 10 tabs 06/30/24 Unknown Rx fluoride (sodium) 1.1 % dental applic PO DAILY 5 Unknown History cream (SF 5000 Plus) Allergy/AdvReac Type Severity Reaction Status Date / Time Iodinated Contrast Media AdvReac Mild Nausea Verified 07/04/24 20:25 Family History Father Psoriasis Thoracic aortic aneurysm (TAA) Mother Skin cancer Sister Lupus Thoracic aortic aneurysm (TAA) Breast cancer Brother Crohn's disease Ulcerative colitis Thoracic aortic aneurysm (TAA) Sister Psoriatic arthritis Breast cancer Other Uterine cancer Surgical History H/O chest tube placement History of tonsillectomy H/O colonoscopy Social History household members: none current occupational status: retired 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 Smoking Status: Current every day smoker tobacco type: cigarettes Tobacco: How many years used: 57 Electronic Cigarette Use: not used how long ago did patient quit smoking: patient cut down to about 0.5ppd second hand exposure: Yes (father smoked for a few years) quit status: has quit before alcohol intake: never substance use type: does not use what type of physical activity do you participate in: none seatbelt use: always do you feel safe at home: Yes ROS ROS ED Constitutional Constitutional ED: Denies chills, fever(s) or sweats ENT ENT ED: Denies sore throat Cardiovascular Cardiovascular: Reports other Details: Lightheaded symptoms. ; Denies chest pain, leg edema, palpitations or racing heartbeat Respiratory/Chest Respiratory/Chest: Denies cough, dyspnea or dyspnea on exertion Gastrointestinal Gastrointestinal: Denies abdominal pain, diarrhea, nausea or vomiting Genitourinary Genitourinary ED: Denies dysuria, hematuria or urinary frequency Musculoskeletal Musculoskeletal: Denies back pain, extremity pain or neck pain Integumentary Denies rash or wounds Neurologic Neurologic: Denies headache(s), paresthesias or weakness EXAM Physical Exam Const Vital Signs: 07/04/24 20:23 07/04/24 20:23 07/04/24 20:37 Temperature 98.3 F Temperature Source Temporal Pulse Rate 31 L 53 L Respiratory Rate 20 H 22 H Respiratory Effort Short of Breath Blood Pressure 133/38 H 155/47 H Blood Pressure Mean 69 83 Pulse Ox 92 97 Oxygen Delivery Method Room Air Room Air 07/04/24 21:00 07/04/24 22:00 Temperature Temperature Source Pulse Rate 36 L 47 L Respiratory Rate 21 H 22 H Respiratory Effort Blood Pressure 129/48 H 127/40 H Blood Pressure Mean 71 69 Pulse Ox 98 96 Oxygen Delivery Method Positive well nourished and well developed General Appearance ED: well developed and NAD HEENT Reports moist mucous membranes normocephalic and atraumatic Eyes General Eye ED: Yes normal appearance of both eyes Neck full ROM Chest Wall Chest: other Left upper chest wall: Pacemaker device, Steri-Strips of the wound,no drainage no erythema no fluctuance. ; Negative for tenderness Resp normal respiratory effort and normal air movement Effort and Inspection: symmetric chest movement; Negative for respiratory distress Cardio regular rhythm and no murmurs Rate: bradycardia Peripheral Pulses: pulses 2+ throughout GI normal to inspection, nondistended, normoactive bowel sounds and non-tender Palpation: Negative for guarding or rebound tenderness present Extremity normal to inspection General Extremety ED: Negative for edema or tenderness General Extremity: Negative for edema Neuro oriented x3 and no sensory deficits noted Neuro Narrative: No focal deficits Sensorium / Orientation: awake and alert Skin no rashes or lesions noted and no wounds MDM MDM MDM Narrative Medical decision making narrative: Interventions / MDM: Differential diagnosis: Pacemaker malfunction, symptomatic bradycardia, leukocytosis Diagnosis considered but do not suspect: N/A My EKG interpretation: Heart rate 43, pacemaker spikes however no following of beats from this. Concerns for failure to capture further. Imaging independently reviewed and interpreted by myself: 1 view chest x-ray: Initial read noted the atrial wires in place, could not appreciate the ventricular wire as it runs below the film. Modified KUB 1 view: Pacemaker leadin the ventricle. External documents reviewed: N/A Test considered but not ordered:N/A ED course: Patient bradycardic stable blood pressure systolic 133. EKG concernsfor failure to capture with bradycardia. Labs will check chest x-ray, will interrogate his pacemaker. 2119: Chest x-ray had the atrial wire in place could not appreciate the ventricular wire discussed with radiology department modified KUB obtained and reviewed and is noted in the ventricle. No floating wires. Results white countreturned at 23.4 up from 4 recently. He is on steroids with his last dose takentoday. Cough is improving no urinary symptoms. Respiratory rate 22, 2 out of 4SIRS criteria. No signs infection of his pacemaker pocket. Added lactic acid and blood cultures. 2144: I spoke with matching machine operator Dr. Velarde, sent images through backline. He agrees that there is failure to capture on EKG. Also agrees leads appear in appropriate places on x-ray. Sent some information from the interrogation, he states possibility voltage just needs to be turned up. We will try to get a hold of the rep to get them to see the patient tomorrow in the hospital. I discussed the leukocytosis, agrees with the infectious workup while in the hospital. 2149: I will speak with hospitalist for admission. I did speak with the rep Angelic Jean, discussed the findings and discussion with matching machine operator, he did feel that turning of the voltage may work for this patient. This will need in person evaluation. He recommended calling back to get the local rep to come evaluate the patient. 2207: I spoke with Dr. Camacho, will admit to the PCU for further management. 2209: I spoke with local [employer] repAnne, she states she will be able to come tomorrow morning to the hospital to evaluate. Lactate has returned to 0.7. No infectious findings at this point. This was likely secondary to hisbradycardia. Re-evaluation: stable Disposition discussed with patient/family/significant other: Patient and daughter Case discussed with consulting clinician: Cardiology, hospitalist This note was generated with Cono-C dictation software. It may contain incorrectwords, spelling, and punctuation that were not noted in checking the note beforesigning. Lab Data Attestation: I reviewed the patient's lab results. Labs: Laboratory Results - last 24 hr 07/04/24 07/04/24 20:35 21:32 WBC 23.4 H RBC 4.97 Hgb 15.0 Hct 43.9 MCV 88.3 MCH 30.2 MCHC 34.2 RDW Std Deviation 44.0 H RDW Coeff of Benny 13.6 Plt Count 238 MPV 10.7 Immature Gran % (Auto) 0.800 Neut % (Auto) 91.7 H Lymph % (Auto) 2.9 L Yell % (Auto) 4.5 Eos % (Auto) 0.0 Baso % (Auto) 0.1 Absolute Neuts (auto) 21.5 H Absolute Lymphs (auto) 0.69 L Nucleated RBC % 0 Differential Comment SCANNED PT 13.4 INR 1.0 APTT 24.2 Sodium 141 Potassium 4.5 Chloride 107 Carbon Dioxide 21.6 Anion Gap 12 BUN 32 H Creatinine 1.18 Estim Creat Clear Calc 50.76 Est GFR (MDRD) Non-Af 63 BUN/Creatinine Ratio 27.3 H Glucose 285 H Lactic Acid 2.7 H* Calcium 8.7 Total Bilirubin 1.18 Direct Bilirubin 0.54 H AST 20 ALT 69 H Alkaline Phosphatase 76 Total Protein 5.4 L Albumin 3.7 Globulin 1.8 L Radiography Diagnostic Testing: Clinical Impression(s) from Imaging Studies Chest X-Ray 07/04/24 20:46 IMPRESSION: Hazy bibasilar airspace opacities, may represent congestion/edema. Stable left-sided dual lead cardiac pacemaker. [facility] 07/04/24 21:07 IMPRESSION: Stable appearing left-sided dual lead cardiac pacemaker. Bibasilar hazy opacity may represent congestion/edema. Small left pleural effusion. Reading Location: [facility] Critical Care Time Critical care time (excluding procedures): Discussing w/Patient &/or Family/CareGiver, Discussing w/Consultants, Arranging Admission or Transfer, Performing Direct Patient Care at Bedside and - (35 minutes) Discharge Plan Dx/Rx/DC Orders Clinical Impression: Pacemaker failure, Bradycardia, Leukocytosis Disposition Disposition: Acute Care Hospital [facility] Discharge Date/Time: 07/04/24 22:45 What to do if you have Problems For any increased pain, shortness of breath, bleeding, nausea or vomiting, chestpain, or any unexpected problems, contact your Primary Care Provider. Call [facility] ([phone]) or report tothe closest Emergency Room. Call 911 if necessary. 07/04/242250 Cosigner Signature (if applicable): CC: Dr. Lucia Trimble MD ~ Signed [facility]04-19-2025 Radiology Diagnostic study note [facility] Imaging Services [address] [place] [address] Abdomen Single View (Portable) MR#: [id number] Acct: [id number] Name: WILIAN CAMPBELL Rep #: [id number] : 1945 M 79 From: Pablo Watson DO PCP: Dr. Lucia Trimble MD Status: REG ER Study:Abdomen Single View (Portable) Date of Exam: 07/04/24 Exam# [id number] Ordering Dr: Ananda Garner DO PROCEDURE: ABDOMEN SINGLE VIEW (PORTABLE) 07/04/2024 REASON FOR EXAM: LEAD EVALUATION TECHNIQUE: Single view abdomen. COMPARISON: None FINDINGS: Bowel gas: Nonobstructive bowel gas pattern. Calcifications: None Bones: Degenerative changes. Other: Patchy hazy bibasilar airspace opacities with left basilar effusion/atelectasis. No pneumothorax. Left-sided dual lead cardiac pacemaker. The leads project over the right heart border and left heart border.. RAD/Abdomen Single View (Portable) IMPRESSION: Stable appearing left-sided dual lead cardiac pacemaker. Bibasilar hazy opacity may represent congestion/edema. Small left pleural effusion. Reading Location: [facility] CC: Dr. Lucia Trimble MD; Dr. Ananda Garner DO ~ [facility]agon [facility]: Signed [facility]04-19-2025 Radiology Diagnostic study note [facility] Imaging Services [address] [place] [address] Chest 1 View (Portable) MR#: [id number] Acct: [id number] Name: WILIAN CAMPBELL Rep #: [id number] : 1945 M 79 From: Pablo Watson DO PCP: Dr. Lucia Trimble MD Status: REG ER Study:Chest 1 View (Portable) Date of Exam: 07/04/24 Exam# [id number] Ordering Dr: Ananda Garner DO PROCEDURE: CHEST 1 VIEW (PORTABLE) 07/04/2024 REASON FOR EXAM: PACEMAKER LEAD EVALUATION TECHNIQUE: Frontal view of the chest. COMPARISON: Chest radiograph dated 06/30/2024 FINDINGS: Hardware: Left-sided dual lead cardiac pacemaker. 1 of the leads project over the right heart border. The 2nd lead is beyond the field of view. Heart: Stable in size. Lungs: Hazy bibasilar airspace opacities. No pneumothorax. Bones: Degenerative changes of the thoracic spine. Other: RAD/Chest 1 View (Portable) IMPRESSION: Hazy bibasilar airspace opacities, may represent congestion/edema. Stable left-sided dual lead cardiac pacemaker. Reading Location: [facility] CC: Dr. Lucia Trimble MD; Dr. Ananda Garner DO ~ [place]agon Driller: Signed [facility]04-15-20[facility] Consult note Author Ravi Lu [facility] Note Date/Time June 30, 2024 11: 43am [facility] Medical Records Department [address] [place] [address] Counseling Note - Pharmacy 06/30/24 1142 MR#: [id number] Acct: [id number] Name: WILIAN CAMPBELL Rep #:[id number] : 1945 79 From: Ravi Lu PCP: Dr. Lucia Trimble MD Status:ADM IN Y Location: [facility] [id number] Pharmacy [facility] has performed discharge medication reconciliation and counseling for this patient. The patient's discharge medication list was reviewed for discrepancies and discrepancies were resolved. The patient was counseled on the following discharge medications and changes in medications for homegoing were reviewed. The Reason for Use, instructions for use, and potential side effects were reviewed for all new medications. The patient's questions regarding all of their medications were answered. 1. Prednisone 40 mg PO Daily x 5 days The patient was able to verbally demonstrate an understanding of their dischargemedications. The patient was counselled on new medication by dean of student services Cristobal. Medications at Discharge Home Medications vit C 250 mg-vit E 90 mg-zinc 40 mg-copper 1 ti-tzoxzy-odpwec capsule (PreserVision AREDS-2) 1 tablet PO DAILY 06/21/20 dupilumab 300 mg/2 mL subcutaneous pen injector (Dupixent) 300 mg subcut Q2W 07/11/21 cholecalciferol (vitamin D3) 125 mcg (5,000 unit) capsule 125 mcg PO DAILY 01/14/23 fluticasone fur. 100 mcg-umeclid 62.5 mcg-vilant 25 mcg inhalat.powder (Trelegy Ellipta) 1 inh inhalation DAILY #3 ea 05/08/24 simvastatin 40 mg tablet 40 mg PO DAILY #90 tabs 05/19/24 losartan 50 mg tablet 50 mg PO DAILY #90 tabs 05/27/24 prednisone 20 mg tablet 40 mg (2 x 20 mg) PO DAILY #10 tabs 06/30/24 06/30/24 0253 <Electronically signed by Ravi orozco> Date _ Ravi Lara Signature (if applicable): Date CC: ~ Signed [facility] Work Phone: [phone]) 479-881404-15-2025 Discharge summary Author Alberto Gupta [facility] Note Date/Time June 30, 2024 10: 57am [facility] Medical Records Department [address] [place] [address] Instructions for Home/Discharge Instructions 06/30/24 1053 MR#: [id number] Acct: [id number] Name: WILIAN CAMPBELL Rep #:[id number] : 1945 79 From: Alberto kineny MD PCP: Dr. Lucia Trimble MD Status:ADM IN Discharge Instructions Diet Discharge Diet: No restrictions (as you feel able. No excessive stretching. No lifting your arm over your head (keep elbow below shoulder level) until seen foryour pacemaker check. Do not lift your elbow away from your side until you are seen for your first visit. Keep the arm sling on if it helps remind you not to lift your arm.) DC O2, CPAP, BIPAP needs Home O2 Discharge instructions: No Dressing / Incision Discharge Activity: Return to Normal Activity May shower in (days): 2 Additional Activity Instructions:: May shower or bathe on [day 3]. Do not scrub the incision or soak in the tub. Just wash with soap and let the water run over the incision. Gently pat dry with towel. Medications: Take your pain medication as directed. Refer to your discharge instruction sheet for a list of medications you are to take. Dressing / Incision Call your doctor if your incision/area has: Continuous Slow Oozing, Sudden Increased Bleeding, Increased Pain/ Swelling, Increased Redness, Foul Smelling Discharge and Swelling at the incision site Call your doctor if you observe: Fever of 101 or Higher, Shortness of breath, Dizziness, Fainting spells, Swelling in the ankles, Chest pain, Prolonged hiccupping and Increased palpitations (irregular heartbeat) Suture Line Care: Avoid Pulling/Pushing and Avoid Pinching/Bending Cleanse incision/area with: Do not get Incision Wet and Keep Dressing Clean & Dry Additional Dressing/Incision Instructions:: When dressing is removed, wash and dry incision. Keep covered with a light bandage if it is rubbing against your clothing. Do not cover the incision with an airtight bandage. Change the bandagedaily. Do not remove steri strips. The strips will fall off on their own. Follow Up Care Please Follow Up With: Fazal Pal MD Test Results: Test results from this visit will be discussed in further detail at your follow- up appointment, if applicable. Discharge Plan Admission Admit Date/Time: 06/27/24 22:02 Attending Provider: Alberto Gupta Primary Care Provider: Lucia Trimble Consulting Providers: Janes Jose; Andriy Macdonald; April Napoles Discharge Orders/Prescriptions Prescriptions: New prednisone 20 mg tablet 40 mg PO DAILY Qty: 10 0RF Continued PreserVision AREDS-2 281-317-90-1 lm-xden-eg-mg capsule 1 tablet PO DAILY Rx Instructions: administer with meals Dupixent Pen 300 mg/2 mL pen injector 300 mg subcut Q2W cholecalciferol (vitamin D3) 125 mcg (5,000 unit) capsule 125 mcg PO DAILY Trelegy Ellipta 100-62.5-25 mcg blister with device 1 inh inhalation DAILY Qty: 3 3RF losartan 50 mg tablet 50 mg PO DAILY Qty: 90 1RF simvastatin 40 mg tablet 40 mg PO DAILY Qty: 90 1RF Referrals / Follow Up: Lucia Trimble MD [Primary Care Provider] - Within 1 Week Fazal Pal MD [Med Staff - Active Staff] - Within 2 Weeks Disposition Disposition (needs filled in before D/C Order can be placed): Home, Self Care 06/30/24 1057<Electronically signed by Alberto Gupta MD>Alberto Gupta MD CC: Dr. Lucia Trimble MD; Dr. Janes Jose DO; Dr. Andriy Macdonald MD; Dr.Kathryn Dony DO ~ Signed [facility] Work Phone: [phone]) 830-936904-15-2025 Consult note [facility] Medical Records Department [address] [place] [address] Counseling Note - Pharmacy 06/30/24 1142 MR#: [id number] Acct: [id number] Name: WILIAN CAMPBELL Rep #:[id number] : 1945 79 From: Ravi Lu PCP: Dr. Lucia Trimble MD Status:ADM IN Y Location: [place] [address] Pharmacy [facility] has performed discharge medication reconciliation and counseling for this patient. The patient's discharge medication list was reviewed for discrepancies and discrepancies were resolved. The patient was counseled on the following discharge medications and changes in medications for homegoing were reviewed. The Reason for Use, instructions for use, and potential side effects were reviewed for all new medications. The patient's questions regarding all of their medications were answered. 1. Prednisone 40 mg PO Daily x 5 days The patient was able to verbally demonstrate an understanding of their dischargemedications. The patient was counselled on new medication by dean of [employer] services Cristobal. Medications at Discharge Home Medications vit C 250 mg-vit E 90 mg-zinc 40 mg-copper 1 sl-iqyqob-fbskpi capsule (PreserVision AREDS-2) 1 tablet PO DAILY 06/21/20 dupilumab 300 mg/2 mL subcutaneous pen injector (Dupixent) 300 mg subcut Q2W 07/11/21 cholecalciferol (vitamin D3) 125 mcg (5,000 unit) capsule 125 mcg PO DAILY 01/14/23 fluticasone fur. 100 mcg-umeclid 62.5 mcg-vilant 25 mcg inhalat.powder (Trelegy Ellipta) 1 inh inhalation DAILY #3 ea 05/08/24 simvastatin 40 mg tablet 40 mg PO DAILY #90 tabs 05/19/24 losartan 50 mg tablet 50 mg PO DAILY #90 tabs 05/27/24 prednisone 20 mg tablet 40 mg (2 x 20 mg) PO DAILY #10 tabs 06/30/24 06/30/24 1143 r> Date _ Ravi Lara Signature (if applicable): Date CC: ~ Signed [facility]04-15-2025 Discharge summary [facility] Medical Records Department [address] [place] [address] Instructions for Home/Discharge Instructions 06/30/24 1053 MR#: [id number] Acct: [id number] Name: WILIAN CAMPBELL Rep #:[id number] : 1945 79 From: Alberto kinney MD PCP: Dr. Lucia Trimble MD Status:ADM IN Discharge Instructions Diet Discharge Diet: No restrictions (as you feel able. No excessive stretching. No lifting your arm over your head (keep elbow below shoulder level) until seen foryour pacemaker check. Do not lift your elbow away from your side until you are seen for your first visit. Keep the arm sling on if it helps remind you not to lift your arm.) DC O2, CPAP, BIPAP needs Home O2 Discharge instructions: No Dressing / Incision Discharge Activity: Return to Normal Activity May shower in (days): 2 Additional Activity Instructions:: May shower or bathe on [day 3]. Do not scrub the incision or soak in the tub. Just wash with soap and let the water run over the incision. Gently pat dry with towel. Medications: Take your pain medication as directed. Refer to your discharge instruction sheet for a list of medications you are to take. Dressing / Incision Call your doctor if your incision/area has: Continuous Slow Oozing, Sudden Increased Bleeding, Increased Pain/ Swelling, Increased Redness, Foul Smelling Discharge and Swelling at the incision site Call your doctor if you observe: Fever of 101 or Higher, Shortness of breath, Dizziness, Fainting spells, Swelling in the ankles, Chest pain, Prolonged hiccupping and Increased palpitations (irregular heartbeat) Suture Line Care: Avoid Pulling/Pushing and Avoid Pinching/Bending Cleanse incision/area with: Do not get Incision Wet and Keep Dressing Clean & Dry Additional Dressing/Incision Instructions:: When dressing is removed, wash and dry incision. Keep covered with a light bandage if it is rubbing against your clothing. Do not cover the incision with an airtight bandage. Change the bandagedaily. Do not remove steri strips. The strips will fall off ontheir own. Follow Up Care Please Follow Up With: Fazal Pal MD Test Results: Test results from this visit will be discussed in further detail at your follow- up appointment, if applicable. Discharge Plan Admission Admit Date/Time: 06/27/24 22:02 Attending Provider: Alberto Gupta Primary Care Provider: Lucia Trimble Consulting Providers: Janes Jose; Andriy Macdonald; April Napoles Discharge Orders/Prescriptions Prescriptions: New prednisone 20 mg tablet 40 mg PO DAILY Qty: 10 0RF Continued PreserVision AREDS-2 741-488-97-1 qa-luyx-qq-mg capsule 1 tablet PO DAILY Rx Instructions: administer with meals Dupixent Pen 300 mg/2 mL pen injector 300 mg subcut Q2W cholecalciferol (vitamin D3) 125 mcg (5,000 unit) capsule 125 mcg PO DAILY Trelegy Ellipta 100-62.5-25 mcg blister with device 1 inh inhalation DAILY Qty: 3 3RF losartan 50 mg tablet 50 mg PO DAILY Qty: 90 1RF simvastatin 40 mg tablet 40 mg PO DAILY Qty: 90 1RF Referrals / Follow Up: Lucia Trimble MD [Primary Care Provider] - Within 1 Week Fazal Pal MD [Med Staff - Active Staff] - Within 2 Weeks Disposition Disposition (needs filled in before D/C Order can be placed): Home, Self Care 06/30/24 1057Nicjason Gupta MD CC: Dr. Lucia Trimble MD; Dr. Janes Jose DO; Dr. Adnriy Macdonald MD; Dr.Kathryn Dony DO ~ Signed [facility]04-15-2025 Discharge summary Author Fazal Pal [facility] Note Date/Time June 30, 2024 8:5 0am [facility] Medical Records Department [address] [place] [address] Instructions for Home/Discharge Instructions 06/30/24 0848 MR#: [id number] Acct: [id number] Name: WILIAN CAMPBELL Rep #:[id number] : 1945 79 From: Fazal Pal MD PCP: Dr. Lucia Trimble MD Status:ADM IN Discharge Instructions Diet Discharge Diet: No restrictions (as you feel able. No excessive stretching. No lifting your arm over your head (keep elbow below shoulder level) until seen foryour pacemaker check. Do not lift your elbow away from your side until you are seen for your first visit. Keep the arm sling on if it helps remind you not to lift your arm.) DC O2, CPAP, BIPAP needs Home O2 Discharge instructions: Yes Type of respiratory needs?: Oxygen Oxygen frequency: With Sleeping Oxygen liters per minute when sleepin Dressing / Incision Discharge Activity: May Not Drive May shower in (days): 2 Additional Activity Instructions:: May shower or bathe on [day 3]. Do not scrub the incision or soak in the tub. Just wash with soap and let the water run over the incision. Gently pat dry with towel. Medications: Take your pain medication as directed. Refer to your discharge instruction sheet for a list of medications you are to take. Dressing / Incision Call your doctor if your incision/area has: Continuous Slow Oozing, Sudden Increased Bleeding, Increased Pain/ Swelling, Increased Redness, Foul Smelling Discharge and Swelling at the incision site Call your doctor if you observe: Fever of 101 or Higher, Shortness of breath, Dizziness, Fainting spells, Swelling in the ankles, Chest pain, Prolonged hiccupping and Increased palpitations (irregular heartbeat) Suture Line Care: Avoid Pulling/Pushing and Avoid Pinching/Bending Remove Dressing in: 4 days Cleanse incision/area with: Do not get Incision Wet and Keep Dressing Clean & Dry Additional Dressing/Incision Instructions:: When dressing is removed, wash and dry incision. Keep covered with a light bandage if it is rubbing against your clothing. Do not cover the incision with an airtight bandage. Change the bandagedaily. Do not remove steri strips. The strips will fall off on their own. Follow Up Care Please Follow Up With: Fazal Pal MD When: Pacemaker follow-up on July 07 at 10 AM. Test Results: Test results from this visit will be discussed in further detail at your follow- up appointment, if applicable. Discharge Plan Admission Admit Date/Time: 06/27/24 22:02 Attending Provider: Alberto Gupta Primary Care Provider: Lucia Trimble Consulting Providers: Janes Jose; Andriy Macdonald; April Napoles Discharge Orders/Prescriptions Prescriptions: No Action PreserVision AREDS-2 120-882-01-1 tq-ftgo-he-mg capsule 1 tablet PO DAILY Rx Instructions: administer with meals Dupixent Pen 300 mg/2 mL pen injector 300 mg subcut Q2W cholecalciferol (vitamin D3) 125 mcg (5,000 unit) capsule 125 mcg PO DAILY Trelegy Ellipta 100-62.5-25 mcg blister with device 1 inh inhalation DAILY Qty: 3 3RF losartan 50 mg tablet 50 mg PO DAILY Qty: 90 1RF simvastatin 40 mg tablet 40 mg PO DAILY Qty: 90 1RF Referrals / Follow Up: Lucia Trimble MD [Primary Care Provider] - 06/30/24 0850<Electronically signed by Fazal Pal MD>Fazal Pal MD CC: Dr. Lucia Trimble MD; Dr. Janes Jose DO; Dr. Andriy Macdonald MD; Dr.Kathryn Dony DO ~ Signed [facility] Work Phone: 1(959) 592-929804-15-2025 Progress note Author Fazal Demarco [facility] Note Date/Time June 30, 2024 8:4 7am [facility] Medical Records Department [address] [place] [address] Progress Note - Cardiology 06/30/24 0845 MR#: [id number] Acct: [id number] Name: WILIAN CAMPBELL Rep #:[id number] : 1945 79 From: Fazal Pal MD PCP: Dr. Lucia Trimble MD Status:ADM IN Location: [place] [address] Subjective Subjective Patient seen and evaluated. Pacemaker interrogated this morning Objective Data Vital Signs: Vital Signs Temp Pulse Resp BP Pulse Ox O2 Del Method O2 Flow Rate 97.8 F 65 18 158/70 H 96 Nasal Cannula 2 06/30/24 04:31 06/30/24 04:31 06/30/24 04:31 06/30/24 04:31 06/30/24 04:31 06/30/24 05:00 06/30/24 05:00 Oxygen Flow Rate (L/min) 2 Oxygen Delivery Method Nasal Cannula Weight: 158 lb 15.253 oz Body Mass Index (BMI) 23.4 Intake & Output: Intake and Output for Last 24 Hours 06/28/24 06/29/24 06/30/24 23:59 23:59 23:59 Intake Total 1528.33 / 1528.33 310 / 310 Output Total 350 / 350 200 / 600 1000 / 1000 Balance 1178.33 / 1178.33 110 / -290 -1000 / -1000 Lab / Micro Data 06/28/24 05:37 06/28/24 05:37 Rhythm Strip Rhythm Strip: Junctional rhythm Rate: 43 Ectopy: PVC(s) Cardiology Labs/Tests Rhythm: EKG: ECHO: Stress Test: Cardiac Cath: PCI: CT Surgery: Holter monitor: EPS: PPM: CXR: Chest CT Scan: Radiography Diagnostic Testing: Radiology Impression Echocardiogram 06/27/24 22:17 Interpretation Summary Normal LV size. The left ventricular ejection fraction is 60 %. Moderate focal aortic valve calcification. Mild aortic stenosis. Moderately dilated aortic root. Ordering Physician: Janes Jose Referring Physician: Lucia Trimble Performed By: Emery Liriano RCS Chest X-Ray 06/30/24 05:30 IMPRESSION: Dual lead pacemaker now seen. No pneumothorax. Possible very small left pleural effusion. Platelike area of atelectasis right lower lung. Patchy ill-defined perihilar lower zone predominant airspace opacities may represent pulmonary edema, clinically correlate. Reading Location: [facility] Physical Exam Const alert, oriented x3 and no apparent distress General Appearance: cooperative HEENT hearing grossly normal bilaterally Head and Scalp: atraumatic Eyes EOMs intact bilaterally Neck General: normal visual inspection Chest inspection of chest normal and palpation of chest normal Resp normal respiratory effort Auscultation: clear to auscultation bilaterally Cardio regular rate, regular rhythm, S1 normal heart sound and S2 normal heart sound Jugular Venous Distention: JVD GI normal to inspection, nondistended, normoactive bowel sounds Extremity normal capillary refill and no pedal edema Peripheral Pulses: Yes pulses 2+ throughout and femoral pulses present Skin no rashes or lesions noted Neuro oriented x3 and CN's II-XII intact bilaterally Psych Appearance: grossly normal and appropriate Assessment & Plan Assessment/Plan (1) Complete heart block: PLAN: Patient presented with complete heart block. He underwent placement of a dual-chamber pacemaker on Saturday without incident. Chest x-ray today demonstrates good positioning. Patient has abnormal baseline chest x-ray. Patient will be discharged for outpatient follow-up. (2) Ascending aortic aneurysm: QUALIFIERS: Presence of rupture: without rupture Qualified Code(s): I71.21 - Aneurysm of the ascending aorta, without rupture PLAN: Patient with a history of ascending aortic aneurysm. Still in the moderate range. * Patient will need to have blood pressure under better control. (3) Essential hypertension: PLAN: Blood pressure uncontrolled at this time. Will recommend an ARB with losartan 50 mg a day. (4) Hyperlipidemia: QUALIFIERS: Hyperlipidemia type: mixed hyperlipidemia Qualified Code(s): E78.2 - Mixed hyperlipidemia PLAN: Continue aggressive risk factor modification. 06/30/24 0847 <Electronically signed by Fazal Pal MD> Cosigner Signature (if applicable): CC: ~ Signed [facility] Work Phone: 1(464) 964-178604-15-2025 Discharge summary [facility] Medical Records Department [address] [place] [address] Instructions for Home/Discharge Instructions 06/30/24 0848 MR#: [id number] Acct: [id number] Name: WILIAN CAMPBELL [place] Rep #:[id number] : 1945 79 From: Fazal Pal MD PCP: Dr. Lucia Trimble MD Status:ADM IN Discharge Instructions Diet Discharge Diet: No restrictions (as you feel able. No excessive stretching. No lifting your arm over your head (keep elbow below shoulder level) until seen foryour pacemaker check. Do not lift your elbow away from your side until you are seen for your first visit. Keep the arm sling on if it helps remind you not to lift your arm.) DC O2, CPAP, BIPAP needs Home O2 Discharge instructions: Yes Type of respiratory needs?: Oxygen Oxygen frequency: With Sleeping Oxygen liters per minute when sleepin Dressing / Incision Discharge Activity: May Not Drive May shower in (days): 2 Additional Activity Instructions:: May shower or bathe on [day 3]. Do not scrub the incision or soak in the tub. Just wash with soap and let the water run over the incision. Gently pat dry with towel. Medications: Take your pain medication as directed. Refer to your discharge instruction sheet for a list of medications you are to take. Dressing / Incision Call your doctor if your incision/area has: Continuous Slow Oozing, Sudden Increased Bleeding, Increased Pain/ Swelling, Increased Redness, Foul Smelling Discharge and Swelling at the incision site Call your doctor if you observe: Fever of 101 or Higher, Shortness of breath, Dizziness, Fainting spells, Swelling in the ankles, Chest pain, Prolonged hiccupping and Increased palpitations (irregular heartbeat) Suture Line Care: Avoid Pulling/Pushing and Avoid Pinching/Bending Remove Dressing in: 4 days Cleanse incision/area with: Do not get Incision Wet and Keep Dressing Clean & Dry Additional Dressing/Incision Instructions:: When dressing is removed, wash and dry incision. Keep covered with a light bandage if it is rubbing against your clothing. Do not cover the incision with an airtight bandage. Change the bandagedaily. Do not remove steri strips. The strips will fall off ontheir own. Follow Up Care Please Follow Up With: Fazal Pal MD When: Pacemaker follow-up on July 07 at 10 AM. Test Results: Test results from this visit will be discussed in further detail at your follow- up appointment, if applicable. Discharge Plan Admission Admit Date/Time: 06/27/24 22:02 Attending Provider: Alberto Gupta Primary Care Provider: Lucia Trimble Consulting Providers: Janes Jose; Andriy Macdonald; April Napoles Discharge Orders/Prescriptions Prescriptions: No Action PreserVision AREDS-2 469-634-03-1 gp-cfzh-rn-mg capsule 1 tablet PO DAILY Rx Instructions: administer with meals Dupixent Pen 300 mg/2 mL pen injector 300 mg subcut Q2W cholecalciferol (vitamin D3) 125 mcg (5,000 unit) capsule 125 mcg PO DAILY Trelegy Ellipta 100-62.5-25 mcg blister with device 1 inh inhalation DAILY Qty: 3 3RF losartan 50 mg tablet 50 mg PO DAILY Qty: 90 1RF simvastatin 40 mg tablet 40 mg PO DAILY Qty: 90 1RF Referrals / Follow Up: Lucia Trimble MD [Primary Care Provider] - 06/30/24 0850Cydavid Pal MD CC: Dr. Lucia Trimble MD; Dr. Janes Jose DO; Dr. Andriy Macdonald MD; Dr.Kathryn Dony DO ~ Signed [facility]04-15-2025 Progress note [facility] Medical Records Department [address] [place] [address] Progress Note - Cardiology 06/30/2445 MR#: [id number] Acct: [id number] Name: WILIAN CAMPBELL Rep #:[id number] : 1945 79 From: Fazal Pal MD PCP: Dr. Lucia Trimble MD Status:ADM IN Location: [place] [address] Subjective Subjective Patient seen and evaluated. Pacemaker interrogated this morning Objective Data Vital Signs: Vital Signs Temp Pulse Resp BP Pulse Ox O2 Del Method O2 Flow Rate 97.8 F 65 18 158/70 H 96 Nasal Cannula 2 06/30/24 04:31 06/30/24 04:31 06/30/24 04:31 06/30/24 04:31 06/30/24 04:31 06/30/24 05:00 06/30/24 05:00 Oxygen Flow Rate (L/min) 2 Oxygen Delivery Method Nasal Cannula Weight: 158 lb 15.253 oz Body Mass Index (BMI) 23.4 Intake & Output: Intake and Output for Last 24 Hours 06/28/24 06/29/24 06/30/24 23:59 23:59 23:59 Intake Total 1528.33 / 1528.33 310 / 310 Output Total 350 / 350 200 / 600 1000 / 1000 Balance 1178.33 / 1178.33 110 / -290 -1000 / -1000 Lab / Micro Data 06/28/24 05:37 06/28/24 05:37 Rhythm Strip Rhythm Strip: Junctional rhythm Rate: 43 Ectopy: PVC(s) Cardiology Labs/Tests Rhythm: EKG: ECHO: Stress Test: Cardiac Cath: PCI: CT Surgery: Holter monitor: EPS: PPM: CXR: Chest CT Scan: Radiography Diagnostic Testing: Radiology Impression Echocardiogram 06/27/24 22:17 Interpretation Summary Normal LV size. The left ventricular ejection fraction is 60 %. Moderate focal aortic valve calcification. Mild aortic stenosis. Moderately dilated aortic root. Ordering Physician: Janes Jose Referring Physician: Lucia Trimble Performed By: Emery Liriano RCS Chest X-Ray 06/30/24 05:30 IMPRESSION: Dual lead pacemaker now seen. No pneumothorax. Possible very small left pleural effusion. Platelike area of atelectasis right lower lung. Patchy ill-defined perihilar lower zone predominant airspace opacities may represent pulmonary edema, clinically correlate. Reading Location: [facility] Physical Exam Const alert, oriented x3 and no apparent distress General Appearance: cooperative HEENT hearing grossly normal bilaterally Head and Scalp: atraumatic Eyes EOMs intact bilaterally Neck General: normal visual inspection Chest inspection of chest normal and palpation of chest normal Resp normal respiratory effort Auscultation: clear to auscultation bilaterally Cardio regular rate, regular rhythm, S1 normal heart sound and S2 normal heart sound Jugular Venous Distention: JVD GI normal to inspection, nondistended, normoactive bowel sounds Extremity normal capillary refill and no pedal edema Peripheral Pulses: Yes pulses 2+ throughout and femoral pulses present Skin no rashes or lesions noted Neuro oriented x3 and CN's II-XII intact bilaterally Psych Appearance: grossly normal and appropriate Assessment & Plan Assessment/Plan (1) Complete heart block: PLAN: Patient presented with complete heart block. He underwent placement of a dual-chamber pacemaker on Saturday without incident. Chest x-ray today demonstrates good positioning. Patient has abnormalbaseline chest x-ray. Patient will be discharged for outpatient follow-up. (2) Ascending aortic aneurysm: QUALIFIERS: Presence of rupture: without rupture Qualified Code(s): I71.21 - Aneurysm of the ascending aorta, without rupture PLAN: Patient with a history of ascending aortic aneurysm. Still in the moderate range. * Patient will need to have blood pressure under better control. (3) Essential hypertension: PLAN: Blood pressure uncontrolled at this time. Will recommend an ARB with losartan 50 mg a day. (4) Hyperlipidemia: QUALIFIERS: Hyperlipidemia type: mixed hyperlipidemia Qualified Code(s): E78.2 - Mixed hyperlipidemia PLAN: Continue aggressive risk factor modification. 06/30/24 0847 Cosigner Signature (if applicable): CC: ~ Signed [facility]04-15-2025 Radiology Diagnostic study note [facility] Imaging Services [address] [place] [address] [id number] Chest Insp/Exp 2 View MR#: [id number] Acct: [id number] Name: WILIAN CAMPBELL Rep #: [id number] : 1945 M 79 From: Henry Ashley MD PCP: Dr. Lucia Trimble MD Status: ADM IN Study:Chest Insp/Exp 2 View Date of Exam: 06/30/24 Exam# [id number] Ordering Dr: José Pal MD EXAM: Chest inspiration/expiration two views CLINICAL HISTORY: Post permanent ICD/pacemaker COMPARISON: 06/27/2024 TECHNIQUE: Upright AP portable view during inspiration and expiration FINDINGS: Dual lead pacemaker now seen. No pneumothorax. Possible very small left pleural effusion. Platelikearea of atelectasis right lower lung. Patchy ill-defined perihilar lower zone predominant airspace opacities may represent pulmonary edema, clinically correlate. Dlpebwom-wc-[id number] hiatal hernia. RAD/Chest Insp/Exp 2 View IMPRESSION: Dual lead pacemaker now seen. No pneumothorax. Possible very small left pleural effusion. Platelike area of atelectasis right lower lung. Patchy ill-defined perihilar lower zone predominant airspace opacities may represent pulmonary edema, clinically correlate. Reading Location: [id number] CC: Dr. Lucia Trimble MD; Dr. Fazal Pal MD ~ Wagon Driller: Signed [facility]04-14-2025 Progress note Author Fazal Pal [facility] Note Date/Time June 29, 2024 5:2 1pm [facility] Medical Records Department [address] [place] [address] Progress Note - Cardiology 06/29/24 1409 MR#: [id number] Acct: [id number] Name: WILIAN CAMPBELL Rep #:[id number] : 1945 79 From: Fazal Pal MD PCP: Dr. Lucia Trimble MD Status:ADM IN Location: [place] [address] Subjective Subjective Patient seen and evaluated. Underwent permanent pacemaker this afternoon for complete heart block Objective Data Vital Signs: Vital Signs Temp Pulse Resp BP Pulse Ox O2 Del Method O2 Flow Rate 97.7 F L 35 L 20 H 155/48 H 99 Nasal Cannula 2 06/29/24 12:00 06/29/24 12:00 06/29/24 12:00 06/29/24 12:00 06/29/24 12:00 06/29/24 12:00 06/29/24 12:00 Oxygen Flow Rate (L/min) 2 Oxygen Delivery Method Nasal Cannula Weight: 165 lb 5.547 oz Body Mass Index (BMI) 24.4 Intake & Output: Intake and Output for Last 24 Hours 06/27/24 06/28/24 06/29/24 23:59 23:59 23:59 Intake Total 425 / 425 1528.33 / 1528.33 60 / 60 Output Total 350 / 350 200 / 200 Balance 425 / 425 1178.33 / 1178.33 -140 / -140 Lab / Micro Data 06/28/24 05:37 06/28/24 05:37 Labs: Laboratory Results - last 24 hr 06/28/24 04:14: Urine Color Straw, Urine Clarity Sl. Cloudy, Urine pH 6.0, Ur Specific [place] 1.015, Urine Protein 100 H, Urine Glucose (UA) Normal, Urine Ketones 5 H, Urine Occult Blood 25 H, Urine Nitrite Positive H, Urine Bilirubin Negative, Urine Urobilinogen Normal, Ur Leukocyte Esterase 500 H, Urine RBC 0-5 SEEN, Urine WBC >100 SEEN, Ur Squamous Epith Cells 0-5 SEEN, Amorphous Sediment 1+ URATE, Urine Bacteria 1+, Urine Mucus 0 SEEN Micro: Microbiology 06/28/24 04:14 Urine, Clean Catch Legionella Antigen - Final 06/28/24 04:14 Urine, Clean Catch Streptococcus pneumoniae Antigen (M - Final Rhythm Strip Rhythm Strip: Junctional rhythm Rate: 43 Ectopy: PVC(s) Cardiology Labs/Tests 06/28/24 04:14: Urine Color Straw, Urine Clarity Sl. Cloudy, Urine pH 6.0, Ur Specific [place] 1.015, Urine Protein 100 H, Urine Glucose (UA) Normal, Urine Ketones 5 H, Urine Occult Blood 25 H, Urine Nitrite Positive H, Urine Bilirubin Negative, Urine Urobilinogen Normal, Ur Leukocyte Esterase 500 H, Urine RBC 0-5 SEEN, Urine WBC >100 SEEN Rhythm: EKG: ECHO: Stress Test: Cardiac Cath: PCI: CT Surgery: Holter monitor: EPS: PPM: CXR: Chest CT Scan: Physical Exam Const alert, oriented x3 and no apparent distress General Appearance: cooperative HEENT hearing grossly normal bilaterally Head and Scalp: atraumatic Eyes EOMs intact bilaterally Neck General: normal visual inspection Chest inspection of chest normal and palpation of chest normal Resp normal respiratory effort Auscultation: clear to auscultation bilaterally Cardio regular rate, regular rhythm, S1 normal heart sound and S2 normal heart sound Jugular Venous Distention: JVD GI normal to inspection, nondistended, normoactive bowel sounds Extremity normal capillary refill and no pedal edema Peripheral Pulses: Yes pulses 2+ throughout and femoral pulses present Skin no rashes or lesions noted Neuro oriented x3 and CN's II-XII intact bilaterally Psych Appearance: grossly normal and appropriate Assessment & Plan Assessment/Plan (1) Complete heart block: PLAN: Patient presented with complete heart block. He underwent placement of a dual-chamber pacemaker this afternoon without incident. The plan will be to check it in a.m. with a chest x-ray. (2) Ascending aortic aneurysm: QUALIFIERS: Presence of rupture: without rupture Qualified Code(s): I71.21 - Aneurysm of the ascending aorta, without rupture PLAN: Patient with a history of ascending aortic aneurysm. Still in the moderate range. * Patient will need to have blood pressure under better control. (3) Essential hypertension: PLAN: Blood pressure uncontrolled at this time. Will recommend an ARB with losartan 50 mg a day. (4) Hyperlipidemia: QUALIFIERS: Hyperlipidemia type: mixed hyperlipidemia Qualified Code(s): E78.2 - Mixed hyperlipidemia PLAN: Continue aggressive risk factor modification. 06/29/24 1721 <Electronically signed by Fazal Pal MD> Cosigner Signature (if applicable): CC: ~ Signed [facility] Work Phone: [phone] Progress note [facility] Medical Records Department [address] [place] [address] Progress Note - Cardiology 06/29/24 1409 MR#: [id number] Acct: [id number] Name: WILIAN CAMPBELL Rep #:[id number] : 1945 79 From: Fazal Pal MD PCP: Dr. Lucia Trimble MD Status:ADM IN Location: [place] [address] Subjective Subjective Patient seen and evaluated. Underwent permanent pacemaker this afternoon for complete heart block Objective Data Vital Signs: Vital Signs Temp Pulse Resp BP Pulse Ox O2 Del Method O2 Flow Rate 97.7 F L 35 L 20 H 155/48 H 99 Nasal Cannula 2 06/29/24 12:00 06/29/24 12:00 06/29/24 12:00 06/29/24 12:00 06/29/24 12:00 06/29/24 12:00 06/29/24 12:00 Oxygen Flow Rate (L/min) 2 Oxygen Delivery Method Nasal Cannula Weight: 165 lb 5.547 oz Body Mass Index (BMI) 24.4 Intake & Output: Intake and Output for Last 24 Hours 06/27/24 06/28/24 06/29/24 23:59 23:59 23:59 Intake Total 425 / 425 1528.33 / 1528.33 60 / 60 Output Total 350 / 350 200 / 200 Balance 425 / 425 1178.33 / 1178.33 -140 / -140 Lab / Micro Data 06/28/24 05:37 06/28/24 05:37 Labs: Laboratory Results - last 24 hr 06/28/24 04:14: Urine Color Straw, Urine Clarity Sl. Cloudy, Urine pH 6.0, Ur Specific [place] 1.015, Urine Protein 100 H, Urine Glucose (UA) Normal, Urine Ketones 5 H, Urine Occult Blood 25 H, UrineNitrite Positive H, Urine Bilirubin Negative, Urine Urobilinogen Normal, Ur Leukocyte Esterase 500 H, Urine RBC 0-5 SEEN, Urine WBC >100 SEEN, Ur Squamous Epith Cells 0-5 SEEN, Amorphous Sediment 1+ URATE, Urine Bacteria 1+, Urine Mucus 0 SEEN Micro: Microbiology 06/28/24 04:14 Urine, Clean Catch Legionella Antigen - Final 06/28/24 04:14 Urine, Clean Catch Streptococcus pneumoniae Antigen (M - Final Rhythm Strip Rhythm Strip: Junctional rhythm Rate: 43 Ectopy: PVC(s) Cardiology Labs/Tests 06/28/24 04:14: Urine Color Straw, Urine Clarity Sl. Cloudy, Urine pH 6.0, Ur Specific [place] 1.015, Urine Protein 100 H, Urine Glucose (UA) Normal, Urine Ketones 5 H, Urine Occult Blood 25 H, UrineNitrite Positive H, Urine Bilirubin Negative, Urine Urobilinogen Normal, Ur Leukocyte Esterase 500 H, Urine RBC 0-5 SEEN, Urine WBC >100 SEEN Rhythm: EKG: ECHO: Stress Test: Cardiac Cath: PCI: CT Surgery: Holter monitor: EPS: PPM: CXR: Chest CT Scan: Physical Exam Const alert, oriented x3 and no apparent distress General Appearance: cooperative HEENT hearing grossly normal bilaterally Head and Scalp: atraumatic Eyes EOMs intact bilaterally Neck General: normal visual inspection Chest inspection of chest normal and palpation of chest normal Resp normal respiratory effort Auscultation: clear to auscultation bilaterally Cardio regular rate, regular rhythm, S1 normal heart sound and S2 normal heart sound Jugular Venous Distention: JVD GI normal to inspection, nondistended, normoactive bowel sounds Extremity normal capillary refill and no pedal edema Peripheral Pulses: Yes pulses 2+ throughout and femoral pulses present Skin no rashes or lesions noted Neuro oriented x3 and CN's II-XII intact bilaterally Psych Appearance: grossly normal and appropriate Assessment & Plan Assessment/Plan (1) Complete heart block: PLAN: Patient presented with complete heart block. He underwent placement of a dual-chamber pacemaker this afternoon without incident. The plan will be to check it in a.m. with a chest x-ray. (2) Ascending aortic aneurysm: QUALIFIERS: Presence of rupture: without rupture Qualified Code(s): I71.21 - Aneurysm of the ascending aorta, without rupture PLAN: Patient with a history of ascending aortic aneurysm. Still in the moderate range. * Patient will need to have blood pressure under better control. (3) Essential hypertension: PLAN: Blood pressure uncontrolled at this time. Will recommend an ARB with losartan 50 mg a day. (4) Hyperlipidemia: QUALIFIERS: Hyperlipidemia type: mixed hyperlipidemia Qualified Code(s): E78.2 - Mixed hyperlipidemia PLAN: Continue aggressive risk factor modification. 06/29/24 1721 Cosigner Signature (if applicable): CC: ~ Signed [facility]04-14-2025 Progress note Author Alberto Gupta [facility] Note Date/Time June 29, 2024 10: 48am [facility] Medical Records Department [address] [place] [address] Progress Note - Hospitalist 06/29/24 1036 MR#: [id number] Acct: [id number] Name: WILIAN CAMPBELL Rep #:[id number] : 1945 79 From: Alberto kinney MD PCP: Dr. Lucia Trimble MD Status:ADM IN Location: [place] [address] Subjective Subjective Doing well, no issues overnight. He was placed on oxygen because he supposed towear CPAP at night. No documentation of hypoxia Objective Data Objective Data Vital Signs: Vital Signs Temp Pulse Resp BP Pulse Ox O2 Del Method O2 Flow Rate 97.9 F 33 L 18 140/42 H 95 Nasal Cannula 2 06/29/24 06:26 06/29/24 07:05 06/29/24 07:05 06/29/24 06:26 06/29/24 07:05 06/29/24 10:00 06/29/24 10:00 Oxygen Flow Rate (L/min) 2 Oxygen Delivery Method Nasal Cannula Weight: 165 lb 5.547 oz Body Mass Index (BMI) 24.4 Intake & Output: Intake and Output for Last 24 Hours 06/28/24 06/29/24 06/30/24 03:59 03:59 03:59 Intake Total 425 / 425 1588.33 / 1588.33 Output Total 350 / 350 200 / 200 Balance 425 / 425 1238.33 / 1238.33 -200 / -200 Lab / Micro Data 06/28/24 05:37 06/28/24 05:37 Labs: Laboratory Results - last 24 hr 06/28/24 04:14: Urine Color Straw, Urine Clarity Sl. Cloudy, Urine pH 6.0, Ur Specific [place] 1.015, Urine Protein 100 H, Urine Glucose (UA) Normal, Urine Ketones 5 H, Urine Occult Blood 25 H, Urine Nitrite Positive H, Urine Bilirubin Negative, Urine Urobilinogen Normal, Ur Leukocyte Esterase 500 H, Urine RBC 0-5 SEEN, Urine WBC >100 SEEN, Ur Squamous Epith Cells 0-5 SEEN, Amorphous Sediment 1+ URATE, Urine Bacteria 1+, Urine Mucus 0 SEEN Micro: Microbiology 06/28/24 04:14 Urine, Clean Catch Legionella Antigen - Final 06/28/24 04:14 Urine, Clean Catch Streptococcus pneumoniae Antigen (M - Final 06/27/24 21:10 Mucosa - Nose SARS-CoV-2, Influenza & RSV (PCR) - Final Rhythm Strip Rhythm Strip: Junctional rhythm Rate: 43 Ectopy: PVC(s) Physical Exam Narrative General: Alert, Oriented x3, Cooperative, No apparent distress HEENT: Atraumatic, PERRLA, EOMI, Normocephalic Oral: Moist Mucosa Neck: Supple, No JVD Lungs: Diminished, Normal air movement, No rhonchi, wheeze, No rales Cardiovascular: Sinus bradycardia, Regular Rhythm, Normal S1, Normal S2, No murmurs Abdomen: Soft, Non Tender, Non-Distended, No Hepato-splenomegaly Extremities: No edema, Capillary Refill Less than 3 Seconds Skin: No rashes, No breakdown Musculoskeletal: No Tenderness to Palpation of Joints or Extremities Neurological: No focal neurological deficits, Motor Exam 5/5 strength throughout, Sensory exam intact to light touch and pain Psych/Mental Status: Normal Affect, Appropriate Assessment & Plan Assessment/Plan (1) Acute exacerbation of chronic obstructive pulmonary disease: (2) Elevated troponin: (3) Complete heart block: PLAN: Plan 1. Complete heart block/troponin elevation due to demand ischemia secondary to bradycardia and COPD/essential HTN/HLD/ascending aortic aneurysm ? Continue with pacemaker placement today ? She has remained hemodynamically stable ? Echocardiogram is pending ? TSH was normal ? Continue with his home losartan on discharge after pacemaker placement ? His aortic aneurysm was 4.[address] scan 2021 and he is being followed up as an outpatient, he has a scan in the summer pending ? Continue with Lipitor 2. Acute COPD exacerbation/HARDEEP/continued tobacco abuse ? Antibiotics were discontinued ? Continue with steroids, can transition to prednisone on discharge with the taper ? Maintaining oxygen saturations on room air unclear as to why he was placed on oxygen overnight as no hypoxic markers were documented ? Continue with CPAP on discharge ? Discussed tobacco cessation 3. Ankylosing spondylitis ? Stable ? Continue with dupilumab DVT: Heparin Charges/Coding Visit Charges Inpatient E&M: 19132 Subs Hosp L2 06/29/24 1048 <Electronically signed by Alberto Gupta MD> Cosigner Signature (if applicable): CC: ~ Signed [facility] Work Phone: [phone] Progress note [facility] Medical Records Department [address] [place] [address] Progress Note - Hospitalist 06/29/24 1036 MR#: [id number] Acct: [id number] Name: WILIAN CAMPBELL Rep #:[id number] : 1945 79 From: Alberto kinney MD PCP: Dr. Lucia Trimble MD Status:ADM IN Location: [place] [address] Subjective Subjective Doing well, no issues overnight. He was placed on oxygen because he supposed towear CPAP at night. No documentation of hypoxia Objective Data Objective Data Vital Signs: Vital Signs Temp Pulse Resp BP Pulse Ox O2 Del Method O2 Flow Rate 97.9 F 33 L 18 140/42 H 95 Nasal Cannula 2 06/29/24 06:26 06/29/24 07:05 06/29/24 07:05 06/29/24 06:26 06/29/24 07:05 06/29/24 10:00 06/29/24 10:00 Oxygen Flow Rate (L/min) 2 Oxygen Delivery Method Nasal Cannula Weight: 165 lb 5.547 oz Body Mass Index (BMI) 24.4 Intake & Output: Intake and Output for Last 24 Hours 06/28/24 06/29/24 06/30/24 03:59 03:59 03:59 Intake Total 425 / 425 1588.33 / 1588.33 Output Total 350 / 350 200 / 200 Balance 425 / 425 1238.33 / 1238.33 -200 / -200 Lab / Micro Data 06/28/24 05:37 06/28/24 05:37 Labs: Laboratory Results - last 24 hr 06/28/24 04:14: Urine Color Straw, Urine Clarity Sl. Cloudy, Urine pH 6.0, Ur Specific [place] 1.015, Urine Protein 100 H, Urine Glucose (UA) Normal, Urine Ketones 5 H, Urine Occult Blood 25 H, UrineNitrite Positive H, Urine Bilirubin Negative, Urine Urobilinogen Normal, Ur Leukocyte Esterase 500 H, Urine RBC 0-5 SEEN, Urine WBC >100 SEEN, Ur Squamous Epith Cells 0-5 SEEN, Amorphous Sediment 1+ URATE, Urine Bacteria 1+, Urine Mucus 0 SEEN Micro: Microbiology 06/28/24 04:14 Urine, Clean Catch Legionella Antigen - Final 06/28/24 04:14 Urine, Clean Catch Streptococcus pneumoniae Antigen (M - Final 06/27/24 21:10 Mucosa - Nose SARS-CoV-2, Influenza & RSV (PCR) - Final Rhythm Strip Rhythm Strip: Junctional rhythm Rate: 43 Ectopy: PVC(s) Physical Exam Narrative General: Alert, Oriented x3, Cooperative, No apparent distress HEENT: Atraumatic, PERRLA, EOMI, Normocephalic Oral: Moist Mucosa Neck: Supple, No JVD Lungs: Diminished, Normal air movement, No rhonchi, wheeze, No rales Cardiovascular: Sinus bradycardia, Regular Rhythm, Normal S1, Normal S2, No murmurs Abdomen: Soft, Non Tender, Non-Distended, No Hepato-splenomegaly Extremities: No edema, Capillary Refill Less than 3 Seconds Skin: No rashes, No breakdown Musculoskeletal: No Tenderness to Palpation of Joints or Extremities Neurological: No focal neurological deficits, Motor Exam 5/5 strength throughout, Sensory exam intact to light touch and pain Psych/Mental Status: Normal Affect, Appropriate Assessment & Plan Assessment/Plan (1) Acute exacerbation of chronic obstructive pulmonary disease: (2) Elevated troponin: (3) Complete heart block: PLAN: Plan 1. Complete heart block/troponin elevation due to demand ischemia secondary to bradycardia and COPD/essential HTN/HLD/ascending aortic aneurysm ? Continue with pacemaker placement today ? She has remained hemodynamically stable ? Echocardiogram is pending ? TSH was normal ? Continue with his home losartan on discharge after pacemaker placement ? His aortic aneurysm was 4.[address] scan 2021 and he is being followed up as an outpatient, he has a scan in the summer pending ? Continue with Lipitor 2. Acute COPD exacerbation/HARDEEP/continued tobacco abuse ? Antibiotics were discontinued ? Continue with steroids, can transition to prednisone on discharge with the taper ? Maintaining oxygen saturations on room air unclear as to why he was placed on oxygen overnight asno hypoxic markers were documented ? Continue with CPAP on discharge ? Discussed tobacco cessation 3. Ankylosing spondylitis ? Stable ? Continue with dupilumab DVT: Heparin Charges/Coding Visit Charges Inpatient E&M: 33807 Subs Hosp L2 06/29/24 1048 Cosigner Signature (if applicable): CC: ~ Signed [facility]04-13-2025 Progress note Author April Napoles [facility] Note Date/Time June 28, 2024 2:4 6pm [facility] Medical Records Department [address] [place] [address] Progress Note - Hospitalist 06/28/24 0637 MR#: [id number] Acct: [id number] Name: WILIAN CAMPBELL Rep #:[id number] : 1945 79 From: April Napoles DO PCP: Dr. Lucia Trimble MD Status:ADM IN Location: [place] [address] Reason for Visit Reason for Visit: Exertional dyspnea Subjective Subjective Patient with no issues overnight. States his dyspnea was only with exertion. He has a wheeze which he has chronically due to COPD and ongoing tobacco abuse but states this was not been different. Developed acutely and he is not really had anything like this before. Objective Data Objective Data Vital Signs: Vital Signs Temp Pulse Resp BP Pulse Ox O2 Del Method 97.7 F L 41 L 18 117/48 L 95 Room Air 06/28/24 04:08 06/28/24 04:08 06/28/24 04:08 06/28/24 04:08 06/28/24 04:08 06/28/24 04:08 Oxygen Delivery Method Room Air Weight: 71.3 kg Body Mass Index (BMI) 23.2 Intake & Output: Intake and Output for Last 24 Hours 06/26/24 06/27/24 06/28/24 23:59 23:59 23:59 Intake Total 425 / 425 60 / 60 Output Total 200 / 200 Balance 425 / 425 -140 / -140 Lab / Micro Data 06/28/24 05:37 06/28/24 05:37 Labs: Laboratory Results - last 24 hr 06/27/24 19:10: WBC 8.0, RBC 4.74, Hgb 14.4, Hct 43.0, MCV 90.7, MCH 30.4, MCHC 33.5, RDW Std Deviation 45.5 H, RDW Coeff of Benny 13.8, Plt Count 196, MPV 11.3, Immature Gran % (Auto) 0.300, Neut % (Auto) 72.3 H, Lymph % (Auto) 16.2 L, Yell % (Auto) 8.3, Eos % (Auto) 2.1, Baso % (Auto) 0.8, Absolute Neuts (auto) 5.8, Absolute Lymphs (auto) 1.29, Nucleated RBC % 0, Sodium 138, Potassium 4.5, Chloride 110 H, Carbon Dioxide 17.4 L, Anion Gap 11, BUN 33 H, Creatinine 1.15, Estim Creat Clear Calc 52.09, Est GFR (MDRD) Non-Af 65, BUN/Creatinine Ratio 28.9 H, Glucose 103 H, Hemoglobin A1c 6.1 H, Calcium 9.0, Magnesium 2.2, Troponin T High Sens 41 H 06/27/24 23:04: Troponin T Hi Sens 2 Hr 62 H*, Vitamin B12 495, Serum Folate 11.20, TSH 1.350 06/28/24 01:11: Troponin T Hi Sens 4Hr 50 H 06/28/24 05:37: WBC 4.1 L, RBC 4.38 L, Hgb 13.2, Hct 39.0 L, MCV 89.0, MCH 30.1,MCHC 33.8, RDW Std Deviation 44.3 H, RDW Coeff of Benny 13.6, Plt Count 164, MPV 11.4, Immature Gran % (Auto) 0.500, Neut % (Auto) 89.7 H, Lymph % (Auto) 8.6 L, Yell % (Auto) 1.2, Eos % (Auto) 0.0, Baso % (Auto) 0.0, Absolute Neuts (auto) 3.7, Absolute Lymphs (auto) 0.35 L, Nucleated RBC % 0 Micro: Microbiology 06/27/24 21:10 Mucosa - Nose SARS-CoV-2, Influenza & RSV (PCR) - Final Radiography Diagnostic Testing: Radiology Impression Chest X-Ray 06/27/24 20:23 IMPRESSION: 1. Mild bilateral perihilar patchy interstitial and alveolar opacities. 2. Small bilateral pleural effusions. [facility] 06/27/24 21:42 IMPRESSION: 1. Small loculated bilateral pleural effusions with mild pleural thickening. Calcified bilateral pleural plaques which can be seen with asbestos related lung disease. 2. Mild/moderate bibasilar atelectasis/scarring. 3. Moderate hiatal hernia. Fluid/debris in the distal esophagus. 4. Mild secretions in the distal trachea. 5. Emphysema and coronary artery disease. 6. Ectasia of the ascending thoracic aorta. Reading Location[facility] Rhythm Strip Rhythm Strip: Junctional rhythm Rate: 43 Ectopy: PVC(s) Physical Exam Const alert, oriented x3, no apparent distress, average body habitus and well nourished; Negative for healthy appearing Constitutional Narrative: Anxious, older, white male, lying in bed, sister at bedside, currently appears comfortable, looks younger than stated age, does not appear toxic HEENT head/scalp atraumatic and moist oral mucous membranes Head and Scalp: normocephalic Eyes Eyes Narrative: Extremely poor vision Resp normal respiratory effort, no retractions, no use of accessory muscles and No clear to auscultation bilaterally Resp Narrative: Scattered inspiratory and expiratory wheezes, prolonged inspiratory phase Auscultation: wheezes; Negative for rales or rhonchi Cardio S1 normal heart sound, S2 normal heart sound, no murmurs, no rub, no gallops andno clicks; Negative for regular rate or regular rhythm Cardio Narrative: Bradycardic and EKG shows third-degree heart block GI normal to inspection, nondistended, normoactive bowel sounds, soft to palpation and non-tender Extremity Extremity Narrative: 2+ pedal pulses, 2+ radial pulses, trace bilateral lower extremity edema, no clubbing or cyanosis Neuro oriented x3, moves all extremities and no focal motor deficits Psych Psych Narrative: Patient is somewhat fidgety and anxious. Mood & Affect: anxious Assessment & Plan Assessment/Plan (1) Acute exacerbation of chronic obstructive pulmonary disease: (2) Elevated troponin: (3) Complete heart block: PLAN: Plan Complete heart block -All 3 EKG showed complete heart block -N.p.o. after midnight -Patient hemodynamically stable so I think we can continue to watch him on telemetry -Echocardiogram in a.m. -TSH is normal -Patient is not on any rate modulating drugs -Plan is for pacemaker tomorrow with Dr. Garcia per cardiology note Acute exacerbation of COPD -Patient markedly wheezy on exam -No cough or change in sputum production so we will discontinue antibiotics--> reviewed imaging and no infiltrate noted -Solu-Medrol 40 every 8 -Start Mucinex 1200 p.o. twice daily -Scheduled and as needed nebulizers -Currently on room air -Will check ambulatory pulse ox prior to discharge Troponin elevation -Mild -Suspect demand ischemia related to heart block and COPD exacerbation -Echocardiogram is pending HARDEEP -Continue CPAP Ascending aortic aneurysm -4.[address] from 2021 -Being followed as an outpatient with most recent measurement at 4.1 cm -Repeat scan is in September/October 2024 Essential hypertension/hyperlipidemia -Continue home losartan -Continue home simvastatin COPD -Aerosols as above -hold home medications Near blindness secondary to macular degeneration -Outpatient follow-up History of ankylosing spondylitis -Restart dupilumab as an outpatient Tobacco abuse -Recommend cessation -Nicotine patch made available DVT prophylaxis -Continue subcu heparin CODE STATUS -Full code Charges/Coding Visit Charges Inpatient E&M: 07124 Subs Hosp L2 06/28/24 1446 <Electronically signed by April Napoles DO> Cosigner Signature (if applicable): CC: ~ Signed [facility] Work Phone: [phone] Consult note Author Andriy Macdonald [facility] Note Date/Time June 28, 2024 1:5 7pm [facility] Medical Records Department [address] [place] [address] Consultation - Cardiology 06/28/24 1341 MR#: [id number] Acct: [id number] Name: WILIAN CAMPBELL Rep #:[id number] : 1945 79 From: Andriy Macdonald MD PCP: Dr. Lucia Trimble MD Status:ADM IN Location: [place] [address] <Statement entered by Andriy Macdonald MD - 06/28/24 13:57> Pt seen & evaluated w/JENNA. I personally interviewed & exam the pt. I was involved in all aspects of pt's orders, interpretation of results & treatment Assessment & Plan Assessment/Plan (1) Dehydration: (2) Elevated troponin: (3) COPD (chronic obstructive pulmonary disease): QUALIFIERS: COPD type: unspecified COPD Qualified Code(s): J44.9 - Chronic obstructive pulmonary disease, unspecified (4) Right bundle branch block (RBBB): (5) Complete heart block: PLAN: 79-year-old patient, presented to ED at [facility] With shortness of breath. Has longstanding history of COPD, ankylosing spondylitis. And previously he was on home oxygen. Cardiac consultation requested as he has mild elevation of high sensitive troponin An abnormal EKG, with complete heart block Patient has multiple other medical comorbidities with history of longstanding obstructive sleep apnea history of smoking Abnormal previous cardiac evaluation where he had a EKG showing right bundle branch block Previous echocardiogram LV function preserved he has dilated ascending aorta andhad a CTA evaluation. History of hypertension. Cardiac care plan recommendation I reviewed and discussed all his current medication He has mild elevation of high sensitive troponin which is likely secondary to dehydration with renal insufficiency and elevated creatinine. His EKG definitely showed evidence of complete heart block I recommended further assessment by EKG and the plan of permanent pacemaker which will be set up tomorrow, by Dr. Pal HPI Consult Data Date of Consult: 06/28/24 HPI Narrative Reason for Consultation: Bradycardia/complete heart block HPI Narrative: WILIAN CAMPBELL, is a 79 M who presents [facility] Medical History Esophageal diverticulum Ankylosing spondylitis Vision problems High blood pressure Back pain Arthritis Alcohol abuse Right bundle branch block (RBBB) Obstructive sleep apnea Hyperlipidemia Essential hypertension Ascending aortic aneurysm Tobacco use disorder, continuous Pneumonia Spondylitis Ankylosis Dermal hypersensitivity reaction Macular degeneration COPD (chronic obstructive pulmonary disease) Home Medications ?Medication ?Instructions ?Recorded ?Last Taken ?Type vit C 250 mg-vit E 90 mg-zinc 40 1 tablet PO DAILY 09/05 Unknown History mg-copper 1 vi-lribtp-mvewfh capsule (PreserVision AREDS-2) dupilumab 300 mg/2 mL subcutaneous 300 mg subcut Q2W 0 07/11/21 Unknown History pen injector (Dupixent) cholecalciferol (vitamin D3) 125 125 mcg PO DAILY 12/18 Unknown History mcg (5,000 unit) capsule fluticasone fur. 100 mcg-umeclid 1 inh inhalation PRICILLA Y #3 ea 05/08/24 Unknown Rx 62.5 mcg-vilant 25 mcg inhalat.powder (Trelegy Ellipta) simvastatin 40 mg tablet 40 mg PO DAILY #90 tabs 07/10 Unknown Rx losartan 50 mg tablet 50 mg PO DAILY #90 tabs 05/16 05/12 Unknown Rx Allergy/AdvReac Type Severity Reaction Status Date / Time Iodinated Contrast Media AdvReac Mild Nausea Verified 06/27/24 19:08 Family History Father Psoriasis Thoracic aortic aneurysm (TAA) Mother Skin cancer Sister Lupus Thoracic aortic aneurysm (TAA) Breast cancer Brother Crohn's disease Ulcerative colitis Thoracic aortic aneurysm (TAA) Sister Psoriatic arthritis Breast cancer Other Uterine cancer Surgical History H/O chest tube placement History of tonsillectomy H/O colonoscopy Social History household members: none current occupational status: retired 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 Smoking Status: Current every day smoker tobacco type: cigarettes Tobacco: How many years used: 57 Electronic Cigarette Use: not used how long ago did patient quit smoking: patient cut down to about 0.5ppd second hand exposure: Yes (father smoked for a few years) quit status: has quit before alcohol intake: never substance use type: does not use what type of physical activity do you participate in: none seatbelt use: always do you feel safe at home: Yes Physical Exam Cardio Cardio Narrative: Seen and evaluated at bedside along with the nursing staff Have shortness of breath at rest with 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 Risk Stratification Risk Stratification Applicable: No Objective Data Vital Signs: Vital Signs Temp Pulse Resp BP Pulse Ox O2 Del Method 98.2 F 39 L 18 150/45 H 95 Room Air 06/28/24 08:00 06/28/24 11:18 06/28/24 08:00 06/28/24 11:18 06/28/24 11:18 06/28/24 11:18 Oxygen Delivery Method Room Air Weight: 157 lb 3.033 oz Body Mass Index (BMI) 23.2 Intake & Output: Intake and Output for Last 24 Hours 06/26/24 06/27/24 06/28/24 23:59 23:59 23:59 Intake Total 425 / 425 928.33 / 928.33 Output Total 200 / 200 Balance 425 / 425 728.33 / 728.33 Lab / Micro Data 06/28/24 05:37 06/28/24 05:37 Labs: Laboratory Results - last 24 hr 06/27/24 19:10: WBC 8.0, RBC 4.74, Hgb 14.4, Hct 43.0, MCV 90.7, MCH 30.4, MCHC 33.5, RDW Std Deviation 45.5 H, RDW Coeff of Benny 13.8, Plt Count 196, MPV 11.3, Immature Gran % (Auto) 0.300, Neut % (Auto) 72.3 H, Lymph % (Auto) 16.2 L, Yell % (Auto) 8.3, Eos % (Auto) 2.1, Baso % (Auto) 0.8, Absolute Neuts (auto) 5.8, Absolute Lymphs (auto) 1.29, Nucleated RBC % 0, Sodium 138, Potassium 4.5, Chloride 110 H, Carbon Dioxide 17.4 L, Anion Gap 11, BUN 33 H, Creatinine 1.15, Estim Creat Clear Calc 52.09, Est GFR (MDRD) Non-Af 65, BUN/Creatinine Ratio 28.9 H, Glucose 103 H, Hemoglobin A1c 6.1 H, Calcium 9.0, Magnesium 2.2, Troponin T High Sens 41 H 06/27/24 23:04: Troponin T Hi Sens 2 Hr 62 H*, Vitamin B12 495, Serum Folate 11.20, TSH 1.350 06/28/24 01:11: Troponin T Hi Sens 4Hr 50 H 06/28/24 05:37: WBC 4.1 L, RBC 4.38 L, Hgb 13.2, Hct 39.0 L, MCV 89.0, MCH 30.1,MCHC 33.8, RDW Std Deviation 44.3 H, RDW Coeff of Benny 13.6, Plt Count 164, MPV 11.4, Immature Gran % (Auto) 0.500, Neut % (Auto) 89.7 H, Lymph % (Auto) 8.6 L, Yell % (Auto) 1.2, Eos % (Auto) 0.0, Baso % (Auto) 0.0, Absolute Neuts (auto) 3.7, Absolute Lymphs (auto) 0.35 L, Nucleated RBC % 0, Sodium 139, Potassium 4.6, Chloride 111 H, Carbon Dioxide 14.8 L, Anion Gap 13, BUN 38 H, Creatinine 1.28 H, Estim Creat Clear Calc 46.80 L, Est GFR (MDRD) Non-Af 57 L, BUN/Creatinine Ratio 29.8 H, Glucose 168 H, Calcium 8.9, Total Bilirubin 0.58, AST 21, ALT 39, Alkaline Phosphatase 75, Total Protein 6.0, Albumin 3.5, Globulin 2.5, Albumin/Globulin Ratio 1.4 Micro: Microbiology 06/27/24 21:10 Mucosa - Nose SARS-CoV-2, Influenza & RSV (PCR) - Final ABG Data ABG results: ABG 06/28/24 06:38 Specimen Type FARZANA Sample Site Not entered O2 % 21.0 VBG pH 7.39 VBG pO2 70 H VBG HCO3 16 L VBG Total CO2 16 L VBG O2 Sat (Calc) 94 H VBG Base Excess -9 L POC Mix VBG pCO2 Pt Tmp 25.9 L O2 Delivery Device Room Air Rhythm Strip Rhythm Strip: Junctional rhythm Rate: 43 Ectopy: PVC(s) Cardiology Labs/Tests 06/27/24 19:10: WBC 8.0, RBC 4.74, Hgb 14.4, Hct 43.0, MCV 90.7, MCH 30.4, MCHC 33.5, Plt Count 196, MPV 11.3, Immature Gran % (Auto) 0.300, Neut % (Auto) 72.3 H, Lymph % (Auto) 16.2 L, Yell % (Auto) 8.3, Eos % (Auto) 2.1, Baso % (Auto) 0.8, Absolute Neuts (auto) 5.8, Nucleated RBC % 0, Sodium 138, Potassium 4.5, Chloride 110 H, Carbon Dioxide 17.4 L, Anion Gap 11, BUN 33 H, Creatinine 1.15, Est GFR (MDRD) Non-Af 65, BUN/Creatinine Ratio 28.9 H, Glucose 103 H, [id number] 6.1 H, Calcium 9.0, Magnesium 2.2 06/28/24 05:37: WBC 4.1 L, RBC 4.38 L, Hgb 13.2, Hct 39.0 L, MCV 89.0, MCH 30.1,MCHC 33.8, Plt Count 164, MPV 11.4, Immature Gran % (Auto) 0.500, Neut % (Auto) 89.7 H, Lymph % (Auto) 8.6 L, Yell % (Auto) 1.2, Eos % (Auto) 0.0, Baso % (Auto)0.0, Absolute Neuts (auto) 3.7, Nucleated RBC % 0, Sodium 139, Potassium 4.6, Chloride 111 H, Carbon Dioxide 14.8 L, Anion Gap 13, BUN 38 H, Creatinine 1.28 H,Est GFR (MDRD) Non-Af 57 L, BUN/Creatinine Ratio 29.8 H, Glucose 168 H, Calcium 8.9, Total Bilirubin 0.58 06/28/24 06:38: VBG pH 7.39, VBG pO2 70 H, VBG HCO3 16 L, VBG O2 Sat (Calc) 94 H, VBG Base Excess -9 L Rhythm: EKG: ECHO: Stress Test: Cardiac Cath: PCI: CT Surgery: Holter monitor: EPS: PPM: CXR: Chest CT Scan: Radiography Diagnostic Testing: Radiology Impression Chest X-Ray 06/27/24 20:23 IMPRESSION: 1. Mild bilateral perihilar patchy interstitial and alveolar opacities. 2. Small bilateral pleural effusions. Reading Location: [facility] Chest CT 06/27/24 21:42 IMPRESSION: 1. Small loculated bilateral pleural effusions with mild pleural thickening. Calcified bilateral pleural plaques which can be seen with asbestos related lung disease. 2. Mild/moderate bibasilar atelectasis/scarring. 3. Moderate hiatal hernia. Fluid/debris in the distal esophagus. 4. Mild secretions in the distal trachea. 5. Emphysema and coronary artery disease. 6. Ectasia of the ascending thoracic aorta. Reading Location: [facility] 06/28/24 2777 <Electronically signed by Andriy Macdonald MD> Cosigner Signature (if applicable): CC: Dr. Lucia Trimble MD~ Signed [facility] Work Phone: [phone] Progress note [facility] Medical Records Department [address] [place] [id number] Progress Note - Hospitalist 06/28/24 0637 MR#: [id number] Acct: [id number] Name: WILIAN CAMPBELL Rep #:[id number] : 1945 79 From: April Napoles DO PCP: Dr. Lucia Trimble MD Status:ADM IN Location: [place] [address] Reason for Visit Reason for Visit: Exertional dyspnea Subjective Subjective Patient with no issues overnight. States his dyspnea was only with exertion. He has a wheeze which he has chronically due to COPD and ongoing tobacco abuse but states this was not been different. Developed acutely and he is not really had anything like this before. Objective Data Objective Data Vital Signs: Vital Signs Temp Pulse Resp BP Pulse Ox O2 Del Method 97.7 F L 41 L 18 117/48 L 95 Room Air 06/28/24 04:08 06/28/24 04:08 06/28/24 04:08 06/28/24 04:08 06/28/24 04:08 06/28/24 04:08 Oxygen Delivery Method Room Air Weight: 71.3 kg Body Mass Index (BMI) 23.2 Intake & Output: Intake and Output for Last 24 Hours 06/26/24 06/27/24 06/28/24 23:59 23:59 23:59 Intake Total 425 / 425 60 / 60 Output Total 200 / 200 Balance / 425 -140 / -140 Lab / Micro Data 06/28/24 05:37 06/28/24 05:37 Labs: Laboratory Results - last 24 hr 06/27/24 19:10: WBC 8.0, RBC 4.74, Hgb 14.4, Hct 43.0, MCV 90.7, MCH 30.4, MCHC 33.5, RDW Std Deviation 45.5 H, RDW Coeff of Benny 13.8, Plt Count 196, MPV 11.3, Immature Gran % (Auto) 0.300, Neut % (Auto) 72.3 H, Lymph % (Auto) 16.2 L, Yell % (Auto) 8.3, Eos % (Auto) 2.1, Baso % (Auto) 0.8, AbsoluteNeuts (auto) 5.8, Absolute Lymphs (auto) 1.29, Nucleated RBC % 0, Sodium 138, Potassium 4.5, Chloride 110 H, Carbon Dioxide 17.4 L, Anion Gap 11, BUN 33 H, Creatinine 1.15, Estim Creat Clear Calc 52.09, Est GFR (MDRD) Non-Af 65, BUN/Creatinine Ratio 28.9 H, Glucose 103 H, Hemoglobin A1c 6.1 H, Calcium 9.0, Magnesium 2.2, Troponin T High Sens 41 H 06/27/24 23:04: Troponin T Hi Sens 2 Hr 62 H*, Vitamin B12 495, Serum Folate 11.20, TSH 1.350 06/28/24 01:11: Troponin T Hi Sens 4Hr 50 H 06/28/24 05:37: WBC 4.1 L, RBC 4.38 L, Hgb 13.2, Hct 39.0 L, MCV 89.0, MCH 30.1,MCHC 33.8, RDW Std Deviation 44.3 H, RDW Coeff of Benny 13.6, Plt Count 164, MPV 11.4, Immature Gran % (Auto) 0.500, Neut% (Auto) 89.7 H, Lymph % (Auto) 8.6 L, Yell % (Auto) 1.2, Eos % (Auto) 0.0, Baso % (Auto) 0.0, Absolute Neuts (auto) 3.7, Absolute Lymphs (auto) 0.35 L, Nucleated RBC % 0 Micro: Microbiology 06/27/24 21:10 Mucosa - Nose SARS-CoV-2, Influenza & RSV (PCR) - Final Radiography Diagnostic Testing: Radiology Impression Chest X-Ray 06/27/24 20:23 IMPRESSION: 1. Mild bilateral perihilar patchy interstitial and alveolar opacities. 2. Small bilateral pleural effusions. Reading Location: [place] Chest CT 06/27/24 21:42 IMPRESSION: 1. Small loculated bilateral pleural effusions with mild pleural thickening. Calcified bilateral pleural plaques which can be seen with asbestos related lung disease. 2. Mild/moderate bibasilar atelectasis/scarring. 3. Moderate hiatal hernia. Fluid/debris in the distal esophagus. 4. Mild secretions in the distal trachea. 5. Emphysema and coronary artery disease. 6. Ectasia of the ascending thoracic aorta. Reading Location: [facility] Rhythm Strip Rhythm Strip: Junctional rhythm Rate: 43 Ectopy: PVC(s) Physical Exam Const alert, oriented x3, no apparent distress, average body habitus and well nourished; Negative for healthy appearing Constitutional Narrative: Anxious, older, white male, lying in bed, sister at bedside, currently appears comfortable, looks younger than stated age, does not appear toxic HEENT head/scalp atraumatic and moist oral mucous membranes Head and Scalp: normocephalic Eyes Eyes Narrative: Extremely poor vision Resp normal respiratory effort, no retractions, no use of accessory muscles and No clear to auscultationbilaterally Resp Narrative: Scattered inspiratory and expiratory wheezes, prolonged inspiratory phase Auscultation: wheezes; Negative for rales or rhonchi Cardio S1 normal heart sound, S2 normal heart sound, no murmurs, no rub, no gallops andno clicks; Negativefor regular rate or regular rhythm Cardio Narrative: Bradycardic and EKG shows third-degree heart block GI normal to inspection, nondistended, normoactive bowel sounds, soft to palpation and non-tender Extremity Extremity Narrative: 2+ pedal pulses, 2+ radial pulses, trace bilateral lower extremity edema, no clubbing or cyanosis Neuro oriented x3, moves all extremities and no focal motor deficits Psych Psych Narrative: Patient is somewhat fidgety and anxious. Mood & Affect: anxious Assessment & Plan Assessment/Plan (1) Acute exacerbation of chronic obstructive pulmonary disease: (2) Elevated troponin: (3) Complete heart block: PLAN: Plan Complete heart block -All 3 EKG showed complete heart block -N.p.o. after midnight -Patient hemodynamically stable so I think we can continue to watch him on telemetry -Echocardiogram in a.m. -TSH is normal -Patient is not on any rate modulating drugs -Plan is for pacemaker tomorrow with Dr. Garcia per cardiology note Acute exacerbation of COPD -Patient markedly wheezy on exam -No cough or change in sputum production so we will discontinue antibiotics--> reviewed imaging and no infiltrate noted -Solu-Medrol 40 every 8 -Start Mucinex 1200 p.o. 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 -Outpatient follow-up History of ankylosing spondylitis -Restart dupilumab as an outpatient Tobacco abuse -Recommend cessation -Nicotine patch made available DVT prophylaxis -Continue subcu heparin CODE STATUS -Full code Charges/Coding Visit Charges Inpatient E&M: 35287 Subs Hosp L2 06/28/24 1446 Cosigner Signature (if applicable): CC: ~ Signed [facility]04-13-2025 Consult note [facility] Medical Records Department [address] [place] [address] Consultation - Cardiology 06/28/24 1341 MR#: [id number] Acct: [id number] Name: WILIAN CAMPBELL Rep #:[id number] : 1945 79 From: Andriy Macdonald MD PCP: Dr. Lucia Trimble MD Status:ADM IN Location: [place] [address] 1 Pt seen & evaluated w/JENNA. I personally interviewed & exam the pt. I was involved in all aspects of pt's orders, interpretation of results & treatment Assessment & Plan Assessment/Plan (1) Dehydration: (2) Elevated troponin: (3) COPD (chronic obstructive pulmonary disease): QUALIFIERS: COPD type: unspecified COPD Qualified Code(s): J44.9 - Chronic obstructive pulmonary disease, unspecified (4) Right bundle branch block (RBBB): (5) Complete heart block: PLAN: 79-year-old patient, presented to ED at [facility] With shortness of breath. Has longstanding history of COPD, ankylosing spondylitis. And previously he was on home oxygen. Cardiac consultation requested as he has mild elevation of high sensitive troponin An abnormal EKG, with complete heart block Patient has multiple other medical comorbidities with history of longstanding obstructive sleep apnea history of smoking Abnormal previous cardiac evaluation where he had a EKG showing right bundle branch block Previous echocardiogram LV function preserved he has dilated ascending aorta andhad a CTA evaluation. History of hypertension. Cardiac care plan recommendation I reviewed and discussed all his current medication He has mild elevation of high sensitive troponin which is likely secondary to dehydration with renal insufficiency and elevated creatinine. His EKG definitely showed evidence of complete heart block I recommended further assessment by EKG and the plan of permanent pacemaker which will be set up tomorrow, by Dr. Pal HPI Consult Data Date of Consult: 06/28/24 HPI Narrative Reason for Consultation: Bradycardia/complete heart block HPI Narrative: WILIAN CAMPBELL, is a 79 M who presents [facility] Medical History Esophageal diverticulum Ankylosing spondylitis Vision problems High blood pressure Back pain Arthritis Alcohol abuse Right bundle branch block (RBBB) Obstructive sleep apnea Hyperlipidemia Essential hypertension Ascending aortic aneurysm Tobacco use disorder, continuous Pneumonia Spondylitis Ankylosis Dermal hypersensitivity reaction Macular degeneration COPD (chronic obstructive pulmonary disease) Home Medications ?Medication ?Instructions ?Recorded ?Last Taken ?Type vit C 250 mg-vit E 90 mg-zinc 40 1 tablet PO DAILY 09/05 Unknown History mg-copper 1 zq-jlzqax-pncicg capsule (PreserVision AREDS-2) dupilumab 300 mg/2 mL subcutaneous 300 mg subcut Q2W 0 07/11/21 Unknown History pen injector (Dupixent) cholecalciferol (vitamin D3) 125 125 mcg PO DAILY 12/18 Unknown History mcg (5,000 unit) capsule fluticasone fur. 100 mcg-umeclid 1 inh inhalation PRICILLA Y #3 ea 05/08/24 Unknown Rx 62.5 mcg-vilant 25 mcg inhalat.powder (Trelegy Ellipta) simvastatin 40 mg tablet 40 mg PO DAILY #90 tabs 07/10 Unknown Rx losartan 50 mg tablet 50 mg PO DAILY #90 tabs 05/16 05/12 Unknown Rx Allergy/AdvReac Type Severity Reaction Status Date / Time Iodinated Contrast Media AdvReac Mild Nausea Verified 06/27/24 19:08 Family History Father Psoriasis Thoracic aortic aneurysm (TAA) Mother Skin cancer Sister Lupus Thoracic aortic aneurysm (TAA) Breast cancer Brother Crohn's disease Ulcerative colitis Thoracic aortic aneurysm (TAA) Sister Psoriatic arthritis Breast cancer Other Uterine cancer Surgical History H/O chest tube placement History of tonsillectomy H/O colonoscopy Social History household members: none current occupational status: retired 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 Smoking Status: Current every day smoker tobacco type: cigarettes Tobacco: How many years used: 57 Electronic Cigarette Use: not used how long ago did patient quit smoking: patient cut down to about 0.5ppd second hand exposure: Yes (father smoked for a few years) quit status: has quit before alcohol intake: never substance use type: does not use what type of physical activity do you participate in: none seatbelt use: always do you feel safe at home: Yes Physical Exam Cardio Cardio Narrative: Seen and evaluated at bedside along with the nursing staff Have shortness of breath at rest with 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 Risk Stratification Risk Stratification Applicable: No Objective Data Vital Signs: Vital Signs Temp Pulse Resp BP Pulse Ox O2 Del Method 98.2 F 39 L 18 150/45 H 95 Room Air 06/28/24 08:00 06/28/24 11:18 06/28/24 08:00 06/28/24 11:18 06/28/24 11:18 06/28/24 11:18 Oxygen Delivery Method Room Air Weight: 157 lb 3.033 oz Body Mass Index (BMI) 23.2 Intake & Output: Intake and Output for Last 24 Hours 06/26/24 06/27/24 06/28/24 23:59 23:59 23:59 Intake Total 425 / 425 928.33 / 928.33 Output Total 200 / 200 Balance 425 / 425 728.33 / 728.33 Lab / Micro Data 06/28/24 05:37 06/28/24 05:37 Labs: Laboratory Results - last 24 hr 06/27/24 19:10: WBC 8.0, RBC 4.74, Hgb 14.4, Hct 43.0, MCV 90.7, MCH 30.4, MCHC 33.5, RDW Std Deviation 45.5 H, RDW Coeff of Benny 13.8, Plt Count 196, MPV 11.3, Immature Gran % (Auto) 0.300, Neut % (Auto) 72.3 H, Lymph % (Auto) 16.2 L, Yell % (Auto) 8.3, Eos % (Auto) 2.1, Baso % (Auto) 0.8, AbsoluteNeuts (auto) 5.8, Absolute Lymphs (auto) 1.29, Nucleated RBC % 0, Sodium 138, Potassium 4.5, Chloride 110 H, Carbon Dioxide 17.4 L, Anion Gap 11, BUN 33 H, Creatinine 1.15, Estim Creat Clear Calc 52.09, Est GFR (MDRD) Non-Af 65, BUN/Creatinine Ratio 28.9 H, Glucose 103 H, Hemoglobin A1c 6.1 H, Calcium 9.0, Magnesium 2.2, Troponin T High Sens 41 H 06/27/24 23:04: Troponin T Hi Sens 2 Hr 62 H*, Vitamin B12 495, Serum Folate 11.20, TSH 1.350 06/28/24 01:11: Troponin T Hi Sens 4Hr 50 H 06/28/24 05:37: WBC 4.1 L, RBC 4.38 L, Hgb 13.2, Hct 39.0 L, MCV 89.0, MCH 30.1,MCHC 33.8, RDW Std Deviation 44.3 H, RDW Coeff of Benny 13.6, Plt Count 164, MPV 11.4, Immature Gran % (Auto) 0.500, Neut% (Auto) 89.7 H, Lymph % (Auto) 8.6 L, Yell % (Auto) 1.2, Eos % (Auto) 0.0, Baso % (Auto) 0.0, Absolute Neuts (auto) 3.7, Absolute Lymphs (auto) 0.35 L, Nucleated RBC % 0, Sodium 139, Potassium 4.6, Chloride 111 H, Carbon Dioxide 14.8 L, Anion Gap 13, BUN 38 H, Creatinine 1.28 H, Estim Creat Clear Calc 46.80 L, Est GFR (MDRD) Non-Af 57 L, BUN/Creatinine Ratio 29.8 H, Glucose 168 H, Calcium 8.9, Total Bilirubin 0.58, AST 21, ALT 39, Alkaline Phosphatase 75, Total Protein 6.0, Albumin 3.5, Globuli n 2.5, Albumin/Globulin Ratio 1.4 Micro: Microbiology 06/27/24 21:10 Mucosa - Nose SARS-CoV-2, Influenza & RSV (PCR) - Final ABG Data ABG results: ABG 06/28/24 06:38 Specimen Type FARZANA Sample Site Not entered O2 % 21.0 VBG pH 7.39 VBG pO2 70 H VBG HCO3 16 L VBG Total CO2 16 L VBG O2 Sat (Calc) 94 H VBG Base Excess -9 L POC Mix VBG pCO2 Pt Tmp 25.9 L O2 Delivery Device Room Air Rhythm Strip Rhythm Strip: Junctional rhythm Rate: 43 Ectopy: PVC(s) Cardiology Labs/Tests 06/27/24 19:10: WBC 8.0, RBC 4.74, Hgb 14.4, Hct 43.0, MCV 90.7, MCH 30.4, MCHC 33.5, Plt Count 196, MPV 11.3, Immature Gran % (Auto) 0.300, Neut % (Auto) 72.3 H, Lymph % (Auto) 16.2 L, Yell % (Auto)8.3, Eos % (Auto) 2.1, Baso % (Auto) 0.8, Absolute Neuts (auto) 5.8, Nucleated RBC % 0, Sodium 138,Potassium 4.5, Chloride 110 H, Carbon Dioxide 17.4 L, Anion Gap 11, BUN 33 H, Creatinine 1.15, Est GFR (MDRD) Non-Af 65, BUN/Creatinine Ratio 28.9 H, Glucose 103 H, [id number] 6.1 H, Calcium 9.0, Magnesium 2.2 06/28/24 05:37: WBC 4.1 L, RBC 4.38 L, Hgb 13.2, Hct 39.0 L, MCV 89.0, MCH 30.1,MCHC 33.8, Plt Count 164, MPV 11.4, Immature Gran % (Auto) 0.500, Neut % (Auto) 89.7 H, Lymph % (Auto) 8.6 L, Yell % (Auto) 1.2, Eos % (Auto) 0.0, Baso % (Auto)0.0, Absolute Neuts (auto) 3.7, Nucleated RBC % 0, Sodium 139, Potassium 4.6, Chloride 111 H, Carbon Dioxide 14.8 L, Anion Gap 13, BUN 38 H, Creatinine 1.28 H,Est GFR (MDRD) Non-Af 57 L, BUN/Creatinine Ratio 29.8 H, Glucose 168 H, Calcium 8.9, Total Bilirubin0.58 06/28/24 06:38: VBG pH 7.39, VBG pO2 70 H, VBG HCO3 16 L, VBG O2 Sat (Calc) 94 H, VBG Base Excess -9 L Rhythm: EKG: ECHO: Stress Test: Cardiac Cath: PCI: CT Surgery: Holter monitor: EPS: PPM: CXR: Chest CT Scan: Radiography Diagnostic Testing: Radiology Impression Chest X-Ray 06/27/24 20:23 IMPRESSION: 1. Mild bilateral perihilar patchy interstitial and alveolar opacities. 2. Small bilateral pleural effusions. Reading Location: [facility] Chest CT 06/27/24 21:42 IMPRESSION: 1. Small loculated bilateral pleural effusions with mild pleural thickening. Calcified bilateral pleural plaques which can be seen with asbestos related lung disease. 2. Mild/moderate bibasilar atelectasis/scarring. 3. Moderate hiatal hernia. Fluid/debris in the distal esophagus. 4. Mild secretions in the distal trachea. 5. Emphysema and coronary artery disease. 6. Ectasia of the ascending thoracic aorta. Reading Location: [facility] 06/28/24 1357 Cosigner Signature (if applicable): CC: Dr. Lucia Trimble MD~ Signed [facility]04-13-2025 History and physical note Author Janes Mayfield [facility] Note Date/Time June 28, 2024 6:3 3am [facility] Medical Records Department [address] [place] [address] H&P Exam - Hospitalist 06/27/242134 MR#: [id number] Acct: [id number] Name: WILIAN CAMPBELL Rep #:[id number] : 1945 79 From: Janes Briggs DO PCP: Dr. Lucia Trimlbe MD Status:ADM IN Location: [place] [address] HPI - General General Date of Admission: 06/27/24 Date of Service: 06/27/24 Chief Complaint: SOB and Wheezing. HPI Narrative WILIAN CAMPBELL, is a 79 M with a past medical history of essential hypertension; onlosartan, hyperlipidemia; on simvastatin, history of tobacco abuse; subsequent COPD, previously on home oxygen, history of chest tube placement, HARDEEP, history of ankylosing spondylitis, history of ~4.2 cm ascending aortic aneurysm (2021), history of RBBB, history of EtOH abuse, history of macular degeneration, historyof GERD; with esophageal diverticulum, listed allergy to iodinated contrast media (nausea) and OA; with chronic back pain who presents to [facility] ER complaining of shortness of breath and wheezing. Mr. Campbell reportshis symptoms began approximately 2 days prior to admission with a gradual-onset of dyspnea on exertion that progressed to shortness of breath at rest. He also admits to a chronic cough productive of yellowish sputum that is unchanged from previous with worsening wheezing. He denies associated fever, chills, runny nose, sore throat, ear pain, chest pain, palpitations, heart racing, headache orrash. In the ER he was noted to have CXR suggestive of Multifocal Pneumonia complicated by clinical evidence of AE COPD with Acute Respiratory Insufficiencycompounded by laboratory evidence of Dehydration with BUN/creatinine ratio of 28.9 present on admission also suspected to be culminating to cause Junctional Bradycardia of ~43 bpm present on admission and he was then admitted to the PCU for ongoing care for status expected to extend beyond 2 midnights. [facility] Medical History Esophageal diverticulum Ankylosing spondylitis Vision problems High blood pressure Back pain Arthritis Alcohol abuse Right bundle branch block (RBBB) Obstructive sleep apnea Hyperlipidemia Essential hypertension Ascending aortic aneurysm Tobacco use disorder, continuous Pneumonia Spondylitis Ankylosis Dermal hypersensitivity reaction Macular degeneration COPD (chronic obstructive pulmonary disease) Home Medications ?Medication ?Instructions ?Recorded ?Last Taken ?Type vit C 250 mg-vit E 90 mg-zinc 40 1 tablet PO DAILY 09/05 Unknown History mg-copper 1 yg-dldukb-ieczpz capsule (PreserVision AREDS-2) dupilumab 300 mg/2 mL subcutaneous 300 mg subcut Q2W 0 07/11/21 Unknown History pen injector (Dupixent) cholecalciferol (vitamin D3) 125 125 mcg PO DAILY 12/18 Unknown History mcg (5,000 unit) capsule fluticasone fur. 100 mcg-umeclid 1 inh inhalation PRICILLA Y #3 ea 05/08/24 Unknown Rx 62.5 mcg-vilant 25 mcg inhalat.powder (Trelegy Ellipta) simvastatin 40 mg tablet 40 mg PO DAILY #90 tabs 07/10 Unknown Rx losartan 50 mg tablet 50 mg PO DAILY #90 tabs 05/16 05/12 Unknown Rx Allergy/AdvReac Type Severity Reaction Status Date / Time Iodinated Contrast Media AdvReac Mild Nausea Verified 06/27/24 19:08 Family History Father Psoriasis Thoracic aortic aneurysm (TAA) Mother Skin cancer Sister Lupus Thoracic aortic aneurysm (TAA) Breast cancer Brother Crohn's disease Ulcerative colitis Thoracic aortic aneurysm (TAA) Sister Psoriatic arthritis Breast cancer Other Uterine cancer Surgical History H/O chest tube placement History of tonsillectomy H/O colonoscopy Social History household members: none current occupational status: retired 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 Smoking Status: Current every day smoker tobacco type: cigarettes Tobacco: How many years used: 57 Electronic Cigarette Use: not used how long ago did patient quit smoking: patient cut down to about 0.5ppd second hand exposure: Yes (father smoked for a few years) quit status: has quit before alcohol intake: never substance use type: does not use what type of physical activity do you participate in: none seatbelt use: always do you feel safe at home: Yes ROS ROS Narrative Review of Systems: Constitutional: Vital Signs Vital Signs Vital Signs: 06/27/24 19:08 06/27/24 19:38 06/27/24 19:38 Temperature 97.7 F L Temperature Source Oral Pulse Rate 40 L Respiratory Rate 28 H 16 Respiratory Effort Respiratory Depth Respiratory Pattern Blood Pressure 160/39 H Blood Pressure Mean 79 Pulse Ox 93 Oxygen Delivery Method Room Air Room Air 06/27/24 19:40 06/27/24 20:52 06/27/24 20:59 Temperature Temperature Source Pulse Rate 39 L 43 L Respiratory Rate 19 H 16 Respiratory Effort Short of Breath Respiratory Depth Normal Respiratory Pattern Hyperpnea Blood Pressure 156/47 H 156/67 H Blood Pressure Mean 83 96 Pulse Ox 96 95 Oxygen Delivery Method Room Air Room Air Room Air Weight Weight: 162 lb 0.636 oz Body Mass Index (BMI) 23.9 Physical Exam Const alert and oriented x3 Constitutional Narrative: Mild distress noted with chronically ill appearance. General Appearance: cooperative HEENT normocephalic, head/scalp atraumatic and hearing grossly normal bilaterally HEENT Narrative: Mucous membranes dry. Eyes PERRL and EOMs intact bilaterally Neck no lymphadenopathy and supple Resp Resp Narrative: Diminished breath sounds throughout with scattered rhonchi and wheezing. Auscultation: rhonchi and wheezes Cardio regular rhythm Cardio Narrative: Severe bradycardia ~40 bpm. GI normal to inspection, nondistended, normoactive bowel sounds, soft to palpation,non-tender and non-distended Extremity normal to inspection, full ROM and no clubbing, cyanosis or edema Skin Skin Narrative: Patient has no evidence of rash, abscess, wounds or jaundice Neuro oriented x3, CN's II-XII intact bilaterally, moves all extremities and no focal motor deficits Sensorium / Orientation: awake, alert, oriented to person, oriented to place andoriented to time Speech: speech normal Psych affect normal Results Medical Records Data Attestation: I reviewed the patient's medical records Lab / Micro Data Attestation: I reviewed the patient's lab results. 06/28/24 05:37 06/27/24 19:10 Labs: Laboratory Results - last 24 hr 06/27/24 19:10: WBC 8.0, RBC 4.74, Hgb 14.4, Hct 43.0, MCV 90.7, MCH 30.4, MCHC 33.5, RDW Std Deviation 45.5 H, RDW Coeff of Benny 13.8, Plt Count 196, MPV 11.3, Immature Gran % (Auto) 0.300, Neut % (Auto) 72.3 H, Lymph % (Auto) 16.2 L, Yell % (Auto) 8.3, Eos % (Auto) 2.1, Baso % (Auto) 0.8, Absolute Neuts (auto) 5.8, Absolute Lymphs (auto) 1.29, Nucleated RBC % 0, Sodium 138, Potassium 4.5, Chloride 110 H, Carbon Dioxide 17.4 L, Anion Gap 11, BUN 33 H, Creatinine 1.15, Estim Creat Clear Calc 52.09, Est GFR (MDRD) Non-Af 65, BUN/Creatinine Ratio 28.9 H, Glucose 103 H, Calcium 9.0, Troponin T High Sens 41 H Rhythm Strip Rhythm Strip: Junctional rhythm Rate: 43 Ectopy: PVC(s) Imaging Radiology Impression Chest X-Ray 06/27/24 20:23 IMPRESSION: 1. Mild bilateral perihilar patchy interstitial and alveolar opacities. 2. Small bilateral pleural effusions. Reading Location: [facility] Imaging Services [address] [place], [place] [address] Chest without Contrast MR#: [id number] Acct: [id number] Name: WILIAN CAMPBELL Rep #: [id number] : 1945 M 79 From: Reynaldo Anderson DO PCP: Dr. Lucia Trimble MD Status: ADM IN Study: Chest without Contrast Date of Exam: 06/27/24 Exam# [id number] Ordering Dr: Valente Beckford MD PROCEDURE: CHEST WITHOUT CONTRAST 06/27/2024 REASON FOR EXAM: COPD ?? PNEUMONIA VS SCAR TISSUE TECHNIQUE: Chest CT without contrast. Coronal and Sagittal reconstruction series were provided. One or more dose reduction techniques were used (e.g., Automated exposure control, adjustment of the mA and/or kV according to patient size, use of iterative reconstruction technique COMPARISON: Same day chest radiograph FINDINGS: Heart size is within normal limits. Mild LAD coronary artery calcifications. No significant pericardial effusion. Aortic valve calcifications. Ectasia of the ascending thoracic aorta measuring 4.4 cm. Normal caliber pulmonary arteries. No bulky lymphadenopathy. Moderate hiatal hernia. Small amount of fluid/debris in the distal esophagus. Superficial soft tissues are within normal limits. Punctate nonobstructing right renal calculus. Cholelithiasis. Mild secretions in the distal trachea. Airways are otherwise patent. Small loculated bilateral pleural effusions with mild pleural thickening. Scattered bilateral calcified pleural plaques. Mild bibasilar scarring/atelectasis. No patchy infiltrates or pneumothorax. Moderate emphysema. Biapical pleural-parenchymal scarring. No pulmonary mass. No acute osseous abnormality. Multilevel thoracic ankylosis. CT/Chest without Contrast IMPRESSION: 1. Small loculated bilateral pleural effusions with mild pleural thickening. Calcified bilateral pleural plaques which can be seen with asbestos related lung disease. 2. Mild/moderate bibasilar atelectasis/scarring. 3. Moderate hiatal hernia. Fluid/debris in the distal esophagus. 4. Mild secretions in the distal trachea. 5. Emphysema and coronary artery disease. 6. Ectasia of the ascending thoracic aorta. Reading Location: [facility] Assessment & Plan Assessment/Plan (1) Multifocal pneumonia: (2) Acute exacerbation of chronic obstructive pulmonary disease: (3) Respiratory insufficiency: (4) Dehydration: (5) Junctional bradycardia: (6) Right bundle branch block (RBBB): (7) Essential hypertension: (8) Smoking greater than 30 pack years: PLAN: Plan 1. Multifocal Pneumonia - Admit to PCU. Continue broad-spectrum antibiotics with IV ceftriaxone and IV azithromycin and await culture and sensitivity data. Check urinary antigens to Streptococcus pneumonia and Legionella species. Give guaifenesin 600 mg p.o. twice daily. Give acetaminophen as needed for wgig-uy-zterthho (level 1- 5/10) pain or fever. Give morphine IV as needed for severe (level 6-10/10) pain. 2. AE COPD with Acute Respiratory Insufficiency due to #1 - Continue IV Solu- Medrol plus as needed and scheduled nebulizers. Wean supplemental oxygen as tolerated. 3. Dehydration with BUN/creatinine ratio of 28.9 present on admission compounding #1 & #2 - Volume resuscitate and recheck renal indices daily to ensure trend of improvement. 4. Junctional Bradycardia of ~43 bpm present on admission in the setting of a known previous history of RBBB adding to the medical complexity of #1 of #3 - Check echocardiogram to evaluate LVEF. Serialize troponin. Finally, we will consult [facility] cardiology to see this patient on rounds in the a.m.further recommendations without appreciated in advance. 5. Essential Hypertension; on losartan - Hold losartan in light of #3 until volume restored. Give IV hydralazine prn for systolic blood pressure > 160 mmHg. 6. Hyperlipidemia; on simvastatin - Resume statin and check Lipid Profile. 7. History of tobacco abuse; subsequent COPD previously on home oxygen and history of chest tube placement - Noted. Tobacco Cessation will be strongly encouraged. 8. HARDEEP - Stable. 9. History of ankylosing spondylitis - Stable. Resume dupilumab as outpatient. 10. History of ~4.2 cm ascending aortic aneurysm (2021) - Noted with CT pendingthis admission to reassess. 11. History of EtOH abuse - Patient denies recent EtOH abuse. We will watch for signs of withdrawal. 12. History of macular degeneration - Stable. 13. History of GERD; with esophageal diverticulum - Start PPI while in high-dose steroids for GI prophylaxis. 14. Listed allergy to iodinated contrast media (nausea) - Noted. 15. OA; with chronic back pain - Give acetaminophen as needed for aonj-cstgx-aiodfdad (level 1-5/10) pain or fever. 16. DVT prophylaxis - Heparin 5,000U sq BID plus SCD's. Total time: Approximately (but not less than) 75 minutes. Charges/Coding Visit Charges Inpatient E&M: 79704 Init Hosp L3 06/28/24 0633 <Electronically signed by Janes Jose DO> Cosigner Signature (if applicable): CC: Dr. Lucia Trimble MD; Dr. Janes Jose DO~ Signed [facility] Work Phone: [phone] History and physical note [facility] Medical Records Department [address] [place] [address] H&P Exam - Hospitalist 06/27/242134 MR#: [id number] Acct: [id number] Name: WILIAN CAMPBELL Rep #:[id number] : 1945 79 From: Janes Briggs DO PCP: Dr. Lucia Trimble MD Status:ADM IN Location: [place] [address] HPI - General General Date of Admission: 06/27/24 Date of Service: 06/27/24 Chief Complaint: SOB and Wheezing. HPI Narrative WILIAN CAMPBELL, is a 79 M with a past medical history of essential hypertension; onlosartan, hyperlipidemia; on simvastatin, history of tobacco abuse; subsequent COPD, previously on home oxygen, historyof chest tube placement, HARDEEP, history of ankylosing spondylitis, history of ~4.2 cm ascending aortic aneurysm (2021), history of RBBB, history of EtOH abuse, history of macular degeneration, historyof GERD; with esophageal diverticulum, listed allergy to iodinated contrast media (nausea) and OA; with chronic back pain who presents to [facility] ER complaining of shortness of breath and wheezing. Mr. Campbell reportshis symptoms began approximately 2 days prior to admission with a gradual-onset of dyspnea on exertion that progressed to shortness of breath at rest. He also admits to a chronic cough productive of yellowish sputum that is unchanged from previous with worsening wheezing. He denies associated fever, chills, runny nose, sore throat, ear pain, chest pain, palpitations, heart racing, headache orrash. In the ER he was noted to have CXR suggestive of Multifocal Pneumonia complicated by clinical evidence of AE COPD with Acute Respiratory Insufficiencycompounded by laboratory evidence of Dehydration with BUN/creatinine ratio of 28.9 present on admission also suspected to be culminating to cause Junctional Bradycardia of ~43 bpm present on admission and he was then admitted to the PCU for ongoing care for status expected to extend beyond 2 midnights. [facility] Medical History Esophageal diverticulum Ankylosing spondylitis Vision problems High blood pressure Back pain Arthritis Alcohol abuse Right bundle branch block (RBBB) Obstructive sleep apnea Hyperlipidemia Essential hypertension Ascending aortic aneurysm Tobacco use disorder, continuous Pneumonia Spondylitis Ankylosis Dermal hypersensitivity reaction Macular degeneration COPD (chronic obstructive pulmonary disease) Home Medications ?Medication ?Instructions ?Recorded ?Last Taken ?Type vit C 250 mg-vit E 90 mg-zinc 40 1 tablet PO DAILY 09/05 Unknown History mg-copper 1 bq-ekudqs-ofzyve capsule (PreserVision AREDS-2) dupilumab 300 mg/2 mL subcutaneous 300 mg subcut Q2W 0 07/11/21 Unknown History 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 100 mcg-umeclid 1 inh inhalation PRICILLA Y #3 ea 05/08/24 Unknown Rx 62.5 mcg-vilant 25 mcg inhalat.powder (Trelegy Ellipta) simvastatin 40 mg tablet 40 mg PO DAILY #90 tabs 07/10 Unknown Rx losartan 50 mg tablet 50 mg PO DAILY #90 tabs 05/16 05/12 Unknown Rx Allergy/AdvReac Type Severity Reaction Status Date / Time Iodinated Contrast Media AdvReac Mild Nausea Verified 06/27/24 19:08 Family History Father Psoriasis Thoracic aortic aneurysm (TAA) Mother Skin cancer Sister Lupus Thoracic aortic aneurysm (TAA) Breast cancer Brother Crohn's disease Ulcerative colitis Thoracic aortic aneurysm (TAA) Sister Psoriatic arthritis Breast cancer Other Uterine cancer Surgical History H/O chest tube placement History of tonsillectomy H/O colonoscopy Social History household members: none current occupational status: retired 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 Smoking Status: Current every day smoker tobacco type: cigarettes Tobacco: How many years used: 57 Electronic Cigarette Use: not used how long ago did patient quit smoking: patient cut down to about 0.5ppd second hand exposure: Yes (father smoked for a few years) quit status: has quit before alcohol intake: never substance use type: does not use what type of physical activity do you participate in: none seatbelt use: always do you feel safe at home: Yes ROS ROS Narrative Review of Systems: Constitutional: Vital Signs Vital Signs Vital Signs: 06/27/24 19:08 06/27/24 19:38 06/27/24 19:38 Temperature 97.7 F L Temperature Source Oral Pulse Rate 40 L Respiratory Rate 28 H 16 Respiratory Effort Respiratory Depth Respiratory Pattern Blood Pressure 160/39 H Blood Pressure Mean 79 Pulse Ox 93 Oxygen Delivery Method Room Air Room Air 06/27/24 19:40 06/27/24 20:52 06/27/24 20:59 Temperature Temperature Source Pulse Rate 39 L 43 L Respiratory Rate 19 H 16 Respiratory Effort Short of Breath Respiratory Depth Normal Respiratory Pattern Hyperpnea Blood Pressure 156/47 H 156/67 H Blood Pressure Mean 83 96 Pulse Ox 96 95 Oxygen Delivery Method Room Air Room Air Room Air Weight Weight: 162 lb 0.636 oz Body Mass Index (BMI) 23.9 Physical Exam Const alert and oriented x3 Constitutional Narrative: Mild distress noted with chronically ill appearance. General Appearance: cooperative HEENT normocephalic, head/scalp atraumatic and hearing grossly normal bilaterally HEENT Narrative: Mucous membranes dry. Eyes PERRL and EOMs intact bilaterally Neck no lymphadenopathy and supple Resp Resp Narrative: Diminished breath sounds throughout with scattered rhonchi and wheezing. Auscultation: rhonchi and wheezes Cardio regular rhythm Cardio Narrative: Severe bradycardia ~40 bpm. GI normal to inspection, nondistended, normoactive bowel sounds, soft to palpation,non-tender and non-distended Extremity normal to inspection, full ROM and no clubbing, cyanosis or edema Skin Skin Narrative: Patient has no evidence of rash, abscess, wounds or jaundice Neuro oriented x3, CN's II-XII intact bilaterally, moves all extremities and no focal motor deficits Sensorium / Orientation: awake, alert, oriented to person, oriented to place andoriented to time Speech: speech normal Psych affect normal Results Medical Records Data Attestation: I reviewed the patient's medical records Lab / Micro Data Attestation: I reviewed the patient's lab results. 06/28/24 05:37 06/27/24 19:10 Labs: Laboratory Results - last 24 hr 06/27/24 19:10: WBC 8.0, RBC 4.74, Hgb 14.4, Hct 43.0, MCV 90.7, MCH 30.4, MCHC 33.5, RDW Std Deviation 45.5 H, RDW Coeff of Benny 13.8, Plt Count 196, MPV 11.3, Immature Gran % (Auto) 0.300, Neut % (Auto) 72.3 H, Lymph % (Auto) 16.2 L, Yell % (Auto) 8.3, Eos % (Auto) 2.1, Baso % (Auto) 0.8, AbsoluteNeuts (auto) 5.8, Absolute Lymphs (auto) 1.29, Nucleated RBC % 0, Sodium 138, Potassium 4.5, Chloride 110 H, Carbon Dioxide 17.4 L, Anion Gap 11, BUN 33 H, Creatinine 1.15, Estim Creat Clear Calc 52.09, Est GFR (MDRD) Non-Af 65, BUN/Creatinine Ratio 28.9 H, Glucose 103 H, Calcium 9.0, Troponin T High Sens 41 H Rhythm Strip Rhythm Strip: Junctional rhythm Rate: 43 Ectopy: PVC(s) Imaging Radiology Impression Chest X-Ray 06/27/24 20:23 IMPRESSION: 1. Mild bilateral perihilar patchy interstitial and alveolar opacities. 2. Small bilateral pleural effusions. Reading Location: [facility] Imaging Services [address] [place], [place] [address] Chest without Contrast MR#: [id number] Acct: [id number] Name: WILIAN CAMPBELL Rep #: [id number] : 1945 M 79 From: Reynaldo Anderson DO PCP: Dr. Lucia Trimble MD Status: ADM IN Study: Chest without Contrast Date of Exam: 06/27/24 Exam# [id number] Ordering Dr: Valente Beckford MD PROCEDURE: CHEST WITHOUT CONTRAST 06/27/2024 REASON FOR EXAM: COPD ?? PNEUMONIA VS SCAR TISSUE TECHNIQUE: Chest CT without contrast. Coronal and Sagittal reconstruction series were provided. One or more dose reduction techniques were used (e.g., Automated exposure control, adjustment of the mA and/or kV according to patient size, use of iterative reconstruction technique COMPARISON: Same day chest radiograph FINDINGS: Heart size is within normal limits. Mild LAD coronary artery calcifications. No significant pericardial effusion. Aortic valve calcifications. Ectasia of the ascending thoracic aorta measuring 4.4 cm. Normal caliber pulmonary arteries. No bulky lymphadenopathy. Moderate hiatal hernia. Small amount of fluid/debris in the distal esophagus. Superficial soft tissues are within normal limits. Punctate nonobstructing right renal calculus. Cholelithiasis. Mild secretions in the distal trachea. Airways are otherwise patent. Small loculated bilateral pleural effusions with mild pleural thickening. Scattered bilateral calcified pleural plaques. Mild bibasilar scarring/atelectasis. No patchy infiltrates or pneumothorax. Moderate emphysema. Biapical pleural-parenchymal scarring. No pulmonary mass. No acute osseous abnormality. Multilevel thoracic ankylosis. CT/Chest without Contrast IMPRESSION: 1. Small loculated bilateral pleural effusions with mild pleural thickening. Calcified bilateral pleural plaques which can be seen with asbestos related lung disease. 2. Mild/moderate bibasilar atelectasis/scarring. 3. Moderate hiatal hernia. Fluid/debris in the distal esophagus. 4. Mild secretions in the distal trachea. 5. Emphysema and coronary artery disease. 6. Ectasia of the ascending thoracic aorta. Reading Location[facility] Assessment & Plan Assessment/Plan (1) Multifocal pneumonia: (2) Acute exacerbation of chronic obstructive pulmonary disease: (3) Respiratory insufficiency: (4) Dehydration: (5) Junctional bradycardia: (6) Right bundle branch block (RBBB): (7) Essential hypertension: (8) Smoking greater than 30 pack years: PLAN: Plan 1. Multifocal Pneumonia - Admit to PCU. Continue broad-spectrum antibiotics with IV ceftriaxone andIV azithromycin and await culture and sensitivity data. Check urinary antigens to Streptococcus pneumonia and Legionella species. Give guaifenesin 600 mg p.o. twice daily. Give acetaminophen as needed for fwzp-xc-mzntbylt (level 1-5/10) pain or fever. Give morphine IV as needed for severe (level 6-10/10) pain. 2. AE COPD with Acute Respiratory Insufficiency due to #1 - Continue IV Solu- Medrol plus as needed and scheduled nebulizers. Wean supplemental oxygen as tolerated. 3. Dehydration with BUN/creatinine ratio of 28.9 present on admission compounding #1 & #2 - Volume resuscitate and recheck renal indices daily to ensure trend of improvement. 4. Junctional Bradycardia of ~43 bpm present on admission in the setting of a known previous history of RBBB adding to the medical complexity of #1 of #3 - Check echocardiogram to evaluate LVEF. Serialize troponin. Finally, we will consult [facility] cardiology to see this patient on rounds in the a.m.further recommendations without appreciated in advance. 5. Essential Hypertension; on losartan - Hold losartan in light of #3 until volume restored. Give IV hydralazine prn for systolic blood pressure > 160 mmHg. 6. Hyperlipidemia; on simvastatin - Resume statin and check Lipid Profile. 7. History of tobacco abuse; subsequent COPD previously on home oxygen and history of chest tube placement - Noted. Tobacco Cessation will be strongly encouraged. 8. HARDEEP - Stable. 9. History of ankylosing spondylitis - Stable. Resume dupilumab as outpatient. 10. History of ~4.2 cm ascending aortic aneurysm (2021) - Noted with CT pendingthis admission to reassess. 11. History of EtOH abuse - Patient denies recent EtOH abuse. We will watch for signs of withdrawal. 12. History of macular degeneration - Stable. 13. History of GERD; with esophageal diverticulum - Start PPI while in high-dose steroids for GI prophylaxis. 14. Listed allergy to iodinated contrast media (nausea) - Noted. 15. OA; with chronic back pain - Give acetaminophen as needed for tztq-lgfzf-cqzcicsd (level 1-5/10) pain or fever. 16. DVT prophylaxis - Heparin 5,000U sq BID plus SCD's. Total time: Approximately (but not less than) 75 minutes. Charges/Coding Visit Charges Inpatient E&M: 62422 Init Hosp L3 06/28/24 0633 Cosigner Signature (if applicable): CC: Dr. Lucia Trimble MD; Dr. Janes Jose, DO~ Signed [facility]04-13-2025 Discharge summary Author Valente Beckford [facility] Note Date/Time June 27, 2024 10: 10pm [facility] Medical Records Department [address] [place] [address] Emergency Department Summary 06/27/24 MR#: [id number] Acct: [id number] Name: WILIAN CAMPBELL Rep #:[id number] : 1945 79 From: Valente Beckford MD PCP: Dr. Lucia Trimble MD Status:ADM IN Location: [place] [address] HPI History of Present Illness Chief Complaint: Shortness of Breath Informant: patient and family Onset/Context/Timing Onset: Today and Yesterday Context: gradual Timing: Continuous Quality: Positive for Dyspnea on exertion and Wheezing Current Severity: Moderate Maximum Severity: Moderate Associated Symptoms cough and clear sputum; Negative for fever or sore throat Chest Pain: Positive for None Narrative Narrative: 70-year-old male history of COPD, ankylosing spondylitis, aortic aneurysm. Previously was on home O2 after having pneumonia and being in the hospital but currently is off the O2. Has been more short of breath with with exertion the last 2 days. Denies any chest pain. He has a chronic cough with chronic productive sputum has been unchanged. No fever. No leg swelling. Denies any cardiac history. No ME nor CABG nor stent. He is currently not on prednisone. He does use Trilogy inhaler daily. PE Risk Factors: Negative for Cancer, OCP + Smoking + > 35, Prior DVT or PE, Recent immobilization, Recent surgery or Recent travel Prior similar symptoms: Yes Recent Illness/Hospitalization: No PFSH PFSH Medical History Esophageal diverticulum Ankylosing spondylitis Vision problems High blood pressure Back pain Arthritis Alcohol abuse Right bundle branch block (RBBB) Obstructive sleep apnea Hyperlipidemia Essential hypertension Ascending aortic aneurysm Tobacco use disorder, continuous Pneumonia Spondylitis Ankylosis Dermal hypersensitivity reaction Macular degeneration COPD (chronic obstructive pulmonary disease) Home Medications ?Medication ?Instructions ?Recorded ?Last Taken ?Type vit C 250 mg-vit E 90 mg-zinc 40 1 tablet PO DAILY 09/05 Unknown History mg-copper 1 [id number] capsule (PreserVision AREDS-2) dupilumab 300 mg/2 mL subcutaneous 300 mg subcut Q2W 0 07/11/21 Unknown History pen injector (Dupixent) cholecalciferol (vitamin D3) 125 125 mcg PO DAILY 12/18 Unknown History mcg (5,000 unit) capsule fluticasone fur. 100 mcg-umeclid 1 inh inhalation PRICILLA Y #3 ea 05/08/24 Unknown Rx 62.5 mcg-vilant 25 mcg inhalat.powder (Trelegy Ellipta) simvastatin 40 mg tablet 40 mg PO DAILY #90 tabs 07/10 Unknown Rx losartan 50 mg tablet 50 mg PO DAILY #90 tabs 05/16 05/12 Unknown Rx Allergy/AdvReac Type Severity Reaction Status Date / Time Iodinated Contrast Media AdvReac Mild Nausea Verified 06/27/24 19:08 Family History Father Psoriasis Thoracic aortic aneurysm (TAA) Mother Skin cancer Sister Lupus Thoracic aortic aneurysm (TAA) Breast cancer Brother Crohn's disease Ulcerative colitis Thoracic aortic aneurysm (TAA) Sister Psoriatic arthritis Breast cancer Other Uterine cancer Surgical History H/O chest tube placement History of tonsillectomy H/O colonoscopy Social History household members: none current occupational status: retired 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 Smoking Status: Current every day smoker tobacco type: cigarettes Tobacco: How many years used: 57 Electronic Cigarette Use: not used how long ago did patient quit smoking: patient cut down to about 0.5ppd second hand exposure: Yes (father smoked for a few years) quit status: has quit before alcohol intake: never substance use type: does not use what type of physical activity do you participate in: none seatbelt use: always do you feel safe at home: Yes ROS ROS ED Constitutional Constitutional ED: Denies chills or fever(s) Eyes Eyes: Denies blurry vision ENT ENT ED: Denies ear pain Cardiovascular Cardiovascular: Denies chest pain or palpitations Respiratory/Chest Respiratory/Chest: Reports cough, dyspnea, dyspnea on exertion, sputum and other Gastrointestinal Gastrointestinal: Denies abdominal pain Genitourinary Genitourinary ED: Denies dysuria or hematuria Musculoskeletal Musculoskeletal: Denies arthralgias Integumentary Denies abscess Neurologic Neurologic: Denies headache(s) Psychiatric Psychiatric: Denies anxiety or depression Endocrine Endocrinology: Denies cold intolerance Hematologic/Lymphatic Hematologic/Lymphatic: Denies easy bleeding Allergic/Immunologic Allergic/Immunologic ED: Denies mouth swelling, tongue swelling or urticaria EXAM Physical Exam Narrative Exam Narrative: 79-year-old male sitting upright in bed. Vital signs are stable. Pulse ox is reading in the room is 96%. Room air no hypoxia. H EENT exam pupils round react light. Moist mucous membranes. Neck nontender JVD. No lymphadenopathy. Lungs coarse breath sounds bilaterally. Expiratory wheezing throughout. No rales or rhonchi. Equal symmetrical. Chest wall ribs nontender. No crepitance. Abdomen soft nontender. Heart bradycardic rate about 40-50 no murmur. Back nontender. Moving all 4 extremities. Nontender no edema no cords. Calves nontender. 5 out of 5 checker loader strength. Dorsi plantarflexion intact. Neurologically he is awake and alert. Answering questions following commands. Const Vital Signs: 06/27/24 19:08 06/27/24 19:38 06/27/24 19:38 Temperature 97.7 F L Temperature Source Oral Pulse Rate 40 L Respiratory Rate 28 H 16 Respiratory Effort Respiratory Depth Respiratory Pattern Blood Pressure 160/39 H Blood Pressure Mean 79 Pulse Ox 93 Oxygen Delivery Method Room Air Room Air 06/27/24 19:40 06/27/24 20:52 06/27/24 20:59 Temperature Temperature Source Pulse Rate 39 L 43 L Respiratory Rate 19 H 16 Respiratory Effort Short of Breath Respiratory Depth Normal Respiratory Pattern Hyperpnea Blood Pressure 156/47 H 156/67 H Blood Pressure Mean 83 96 Pulse Ox 96 95 Oxygen Delivery Method Room Air Room Air Room Air 06/27/24 21:34 Temperature 97.8 F Temperature Source Pulse Rate 46 L Respiratory Rate 18 Respiratory Effort Respiratory Depth Respiratory Pattern Blood Pressure 169/48 H Blood Pressure Mean 88 Pulse Ox 94 Oxygen Delivery Method Positive well developed; Negative for obese, cachectic, contractures or unkempt General Appearance ED: well developed and NAD; Negative for unkempt, cachectic, contractures or pallor Nutritional Appearance: Negative for cachectic or obese HEENT Reports moist mucous membranes atraumatic; Negative for trauma or tenderness Eyes PERRL and EOMs intact bilaterally Neck no lymphadenopathy, supple, no meningeal signs and no JVD Resp No normal respiratory effort and No clear to auscultation bilaterally Resp Narrative: Prolonged expiratory phase. Expiratory wheezes. No rales or rhonchi. Equal symmetrical. Chest wall nontender. No crepitance or subcu air. Auscultation: wheezes; Negative for rales or rhonchi Cardio Cardio Narrative: Bradycardia rate 40-50. No murmur. Rate: bradycardia GI non-distended and no masses Palpation: soft; Negative for tender, guarding, mass or rebound tenderness present Back/Spine no CVA tenderness and normal to inspection Extremity normal to inspection General Extremety ED: Negative for edema or tenderness General Extremity: Negative for edema Neuro oriented x3 and CN's II-XII intact bilaterally Sensorium / Orientation: alert, oriented to person, oriented to place and oriented to time; Negative for orientation impaired, confused or lethargic Speech: speech normal Motor Exam: strength 5/5 throughout Psych mental status grossly normal Appearance: Negative for unkempt Mood & Affect: Negative for depressed, anxious or tearful Thought Process: normal thought process Skin no wounds and skin turgor normal General Skin Exam: Negative for jaundice or pallor Lesions: no lesions Rashes: no rashes Trauma: Negative for abrasion, laceration or puncture MDM MDM MDM Narrative Medical decision making narrative: 79-year-old male shortness of breath expiratory wheezing suspect exacerbation ofCOPD. He also has a bradycardia rate in the 40s. Cardiac and respiratory workup. Treated with DuoNeb and albuterol aerosols. Solu-Medrol IV for the wheezing. Differential includes COPD, cardiac event, dysrhythmia. Rule out pneumonia Repeat exam patient is doing well at 9:25 PM. I spoke to both he and his sister. His wheezing is much better after the aerosol treatment and Solu-Medrol. We went over his chest x-ray. This could all be chronic changes possibly bilateral pneumonia. He will be started on IV Rocephin and Zithromax. I have the hospitalist on page. He remains in a junctional bradycardia rate 38-43 but he has a good blood pressure with that 156/67. Sister said he has never had a history of abnormal cardiac rhythm. Patient will be admitted to the PCU. I did speak to the hospitalist. He will admit the patient. He did want a CT ofthe chest obtained without contrast for a baseline and also for further evaluation for possible pneumonia versus chronic scarring. History & Record Review Discussion w/independent historian: Patient and Family Additional record(s) reviewed:: Prior inpatient record, Prior outpatient record,Prior ED visit and Prior labs Lab Data Attestation: I reviewed the patient's lab results. Lab results narrative: CBC shows normal white count 8. H&H 14 and 43. Platelets 196. Electrolytes show a gap of 11. BUN of 33 creatinine 1.15 consistent with dehydration. Glucose 103. Troponin 41. 2-hour troponin be obtained. Labs: Laboratory Results - last 24 hr 06/27/24 19:10 WBC 8.0 RBC 4.74 Hgb 14.4 Hct 43.0 MCV 90.7 MCH 30.4 MCHC 33.5 RDW Std Deviation 45.5 H RDW Coeff of Benny 13.8 Plt Count 196 MPV 11.3 Immature Gran % (Auto) 0.300 Neut % (Auto) 72.3 H Lymph % (Auto) 16.2 L Yell % (Auto) 8.3 Eos % (Auto) 2.1 Baso % (Auto) 0.8 Absolute Neuts (auto) 5.8 Absolute Lymphs (auto) 1.29 Nucleated RBC % 0 Sodium 138 Potassium 4.5 Chloride 110 H Carbon Dioxide 17.4 L Anion Gap 11 BUN 33 H Creatinine 1.15 Estim Creat Clear Calc 52.09 Est GFR (MDRD) Non-Af 65 BUN/Creatinine Ratio 28.9 H Glucose 103 H Calcium 9.0 Troponin T High Sens 41 H Radiography Chest X-Ray - ED: 2 View, Read by ED Physician, Normal, Heart, Mediastinum, BonyStructures, Chronic Changes, Right Infiltrate, Left Infiltrate and Right Effusion Diagnostic Testing: Clinical Impression(s) from Imaging Studies Chest X-Ray 06/27/24 20:23 IMPRESSION: 1. Mild bilateral perihilar patchy interstitial and alveolar opacities. 2. Small bilateral pleural effusions. [facility] Chest x-ray, 2 views, AP and lateral, interpreted both by myself and the radiologist. Shows a normal cardiac silhouette. Bilateral opacities which could be chronic changes and scarring, could be bilateral infiltrates. He also has a small right pleural effusion. I did compare this to her prior chest CT from a couple years ago and it does look significantly worse. He will be treated for potential pneumonia. Rhythm Strip Rhythm Strip: Junctional rhythm Rate: 43 Ectopy: PVC(s) EKG Initial EKG: Attestation: I personally reviewed and interpreted this EKG as follows: Interpretation: Junctional Comments: Junctional rhythm rate of 43. Occasional PVC. No acute signs of ME or ischemia. No old x-ray available for comparison. Prior: No Prior Discharge Plan Dx/Rx/DC Orders Clinical Impression: Acute exacerbation of chronic obstructive pulmonary disease, Pneumonia, Junctional bradycardia Disposition Disposition: Acute Care Hospital [facility] What to do if you have Problems For any increased pain, shortness of breath, bleeding, nausea or vomiting, chestpain, or any unexpected problems, contact your Primary Care Provider. Call [facility] ([phone]) or report to the closest Emergency Room. Call 911 if necessary. 06/27/[id number] <Electronically signed by Valente Beckford MD> Cosigner Signature (if applicable): CC: Dr. Lucia Trimble MD ~ Signed ADDENDUM by Dr. Valente Beckford MD on 06/27/24 at 2210 COVID, flu and RSV are negative. Hospitalist requested a CT of the chest be obtained. Those results will be checked out to him. He will follow them up. 06/[id number]/[id number]<Electronically signed by Valente Beckford MD> Cosigner Signature (if applicable): cc: Dr. Lucia Trimble MD ~* Signed [facility] Work Phone: [phone]) 512-208004-12-2025 Radiology Diagnostic study note [facility] Imaging Services [address] [place], [place] [address] Chest without Contrast MR#: [id number] Acct: [id number] Name: WILIAN CAMPBELL Rep #: [id number] : 1945 M 79 From: Henry Anderson DO PCP: Dr. Lucia Trimble MD Status: ADM IN Study:Chest without Contrast Date of Exam: 06/27/24 Exam# [id number] Ordering Dr: Ronda Beckford MD PROCEDURE: CHEST WITHOUT CONTRAST 06/27/2024 REASON FOR EXAM: COPD ?? PNEUMONIA VS SCAR TISSUE TECHNIQUE: Chest CT without contrast. Coronal and Sagittal reconstruction series were provided. One or more dose reduction techniques were used (e.g., Automated exposure control, adjustment of the mA and/or kV according to patient size, use of iterative reconstruction technique COMPARISON: Same day chest radiograph FINDINGS: Heart size is within normal limits. Mild LAD coronary artery calcifications. No significant pericardial effusion. Aortic valve calcifications. Ectasia of the ascending thoracic aorta measuring 4.4 cm. Normal caliber pulmonary arteries. No bulky lymphadenopathy. Moderate hiatal hernia. Small amount of fluid/debris in the distal esophagus. Superficial soft tissues are within normal limits. Punctate nonobstructing right renal calculus. Cholelithiasis. Mild secretions in the distal trachea. Airways are otherwise patent. Small loculated bilateral pleural effusions with mild pleural thickening. Scattered bilateral calcified pleural plaques. Mild bibasilar scarring/atelectasis. No patchy infiltrates or pneumothorax. Moderate emphysema. Biapical pleural-parenchymal scarring. No pulmonary mass. No acute osseous abnormality. Multilevel thoracic ankylosis. CT/Chest without Contrast IMPRESSION: 1. Small loculated bilateral pleural effusions with mild pleural thickening. Calcified bilateral pleural plaques which can be seen with asbestos related lung disease. 2. Mild/moderate bibasilar atelectasis/scarring. 3. Moderate hiatal hernia. Fluid/debris in the distal esophagus. 4. Mild secretions in the distal trachea. 5. Emphysema and coronary artery disease. 6. Ectasia of the ascending thoracic aorta. Reading Location: [facility] CC: Dr. Lucia Trimble MD; Dr. Valente Beckford MD ~ Wagon Driller: Signed [facility]04-12-2025 Discharge summary [facility] Medical Records Department [address] [place] [address] Emergency Department Summary 06/27/24 MR#: [id number] Acct: [id number] Name: WILIAN CAMPBELL Rep #:[id number] : 1945 79 From: Valente Beckford MD PCP: Dr. Lucia Trimble MD Status:ADM IN Location: [place] [address] HPI History of Present Illness Chief Complaint: Shortness of Breath Informant: patient and family Onset/Context/Timing Onset: Today and Yesterday Context: gradual Timing: Continuous Quality: Positive for Dyspnea on exertion and Wheezing Current Severity: Moderate Maximum Severity: Moderate Associated Symptoms cough and clear sputum; Negative for fever or sore throat Chest Pain: Positive for None Narrative Narrative: 70-year-old male history of COPD, ankylosing spondylitis, aortic aneurysm. Previously was on home O2 after having pneumonia and being in the hospital but currently is off the O2. Has been more short of breath with with exertion the last 2 days. Denies any chest pain. He has a chronic cough with chronic productive sputum has been unchanged. No fever. No leg swelling. Denies any cardiac history. Marlyn nor CABG nor stent. He is currently not on prednisone. He does use Trilogy inhaler daily. PE Risk Factors: Negative for Cancer, OCP + Smoking + > 35, Prior DVT or PE, Recent immobilization, Recent surgery or Recent travel Prior similar symptoms: Yes Recent Illness/Hospitalization: No PFSH PFSH Medical History Esophageal diverticulum Ankylosing spondylitis Vision problems High blood pressure Back pain Arthritis Alcohol abuse Right bundle branch block (RBBB) Obstructive sleep apnea Hyperlipidemia Essential hypertension Ascending aortic aneurysm Tobacco use disorder, continuous Pneumonia Spondylitis Ankylosis Dermal hypersensitivity reaction Macular degeneration COPD (chronic obstructive pulmonary disease) Home Medications ?Medication ?Instructions ?Recorded ?Last Taken ?Type vit C 250 mg-vit E 90 mg-zinc 40 1 tablet PO DAILY 09/05 Unknown History mg-copper 1 vx-[id number] capsule (PreserVision AREDS-2) dupilumab 300 mg/2 mL subcutaneous 300 mg subcut Q2W 0 07/11/21 Unknown History pen injector (Dupixent) cholecalciferol (vitamin D3) 125 125 mcg PO DAILY 12/18 Unknown History mcg (5,000 unit) capsule fluticasone fur. 100 mcg-umeclid 1 inh inhalation PRICILLA Y #3 ea 05/08/24 Unknown Rx 62.5 mcg-vilant 25 mcg inhalat.powder (Trelegy Ellipta) simvastatin 40 mg tablet 40 mg PO DAILY #90 tabs 07/10 Unknown Rx losartan 50 mg tablet 50 mg PO DAILY #90 tabs 05/16 05/12 Unknown Rx Allergy/AdvReac Type Severity Reaction Status Date / Time Iodinated Contrast Media AdvReac Mild Nausea Verified 06/27/24 19:08 Family History Father Psoriasis Thoracic aortic aneurysm (TAA) Mother Skin cancer Sister Lupus Thoracic aortic aneurysm (TAA) Breast cancer Brother Crohn's disease Ulcerative colitis Thoracic aortic aneurysm (TAA) Sister Psoriatic arthritis Breast cancer Other Uterine cancer Surgical History H/O chest tube placement History of tonsillectomy H/O colonoscopy Social History household members: none current occupational status: retired 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[employer] Smoking Status: Current every day smoker tobacco type: cigarettes Tobacco: How many years used: 57 Electronic Cigarette Use: not used how long ago did patient quit smoking: patient cut down to about 0.5ppd second hand exposure: Yes (father smoked for a few years) quit status: has quit before alcohol intake: never substance use type: does not use what type of physical activity do you participate in: none seatbelt use: always do you feel safe at home: Yes ROS ROS ED Constitutional Constitutional ED: Denies chills or fever(s) Eyes Eyes: Denies blurry vision ENT ENT ED: Denies ear pain Cardiovascular Cardiovascular: Denies chest pain or palpitations Respiratory/Chest Respiratory/Chest: Reports cough, dyspnea, dyspnea on exertion, sputum and other Gastrointestinal Gastrointestinal: Denies abdominal pain Genitourinary Genitourinary ED: Denies dysuria or hematuria Musculoskeletal Musculoskeletal: Denies arthralgias Integumentary Denies abscess Neurologic Neurologic: Denies headache(s) Psychiatric Psychiatric: Denies anxiety or depression Endocrine Endocrinology: Denies cold intolerance Hematologic/Lymphatic Hematologic/Lymphatic: Denies easy bleeding Allergic/Immunologic Allergic/Immunologic ED: Denies mouth swelling, tongue swelling or urticaria EXAM Physical Exam Narrative Exam Narrative: 79-year-old male sitting upright in bed. Vital signs are stable. Pulse ox is reading in the room is96%. Room air no hypoxia. H EENT exam pupils round react light. Moist mucous membranes. Neck nontender JVD. No lymphadenopathy. Lungs coarse breath sounds bilaterally. Expiratory wheezing throughout.No rales or rhonchi. Equal symmetrical. Chest wall ribs nontender. No crepitance. Abdomen soft nontender. Heart bradycardic rate about 40-50 no murmur. Back nontender. Moving all 4 extremities. Nontender no edema no cords. Calves nontender. 5 out of 5 checker loader strength. Dorsi plantarflexion intact. Neurologically he is awake and alert. Answering questions following commands. Const Vital Signs: 06/27/24 19:08 06/27/24 19:38 06/27/24 19:38 Temperature 97.7 F L Temperature Source Oral Pulse Rate 40 L Respiratory Rate 28 H 16 Respiratory Effort Respiratory Depth Respiratory Pattern Blood Pressure 160/39 H Blood Pressure Mean 79 Pulse Ox 93 Oxygen Delivery Method Room Air Room Air 06/27/24 19:40 06/27/24 20:52 06/27/24 20:59 Temperature Temperature Source Pulse Rate 39 L 43 L Respiratory Rate 19 H 16 Respiratory Effort Short of Breath Respiratory Depth Normal Respiratory Pattern Hyperpnea Blood Pressure 156/47 H 156/67 H Blood Pressure Mean 83 96 Pulse Ox 96 95 Oxygen Delivery Method Room Air Room Air Room Air 06/27/24 21:34 Temperature 97.8 F Temperature Source Pulse Rate 46 L Respiratory Rate 18 Respiratory Effort Respiratory Depth Respiratory Pattern Blood Pressure 169/48 H Blood Pressure Mean 88 Pulse Ox 94 Oxygen Delivery Method Positive well developed; Negative for obese, cachectic, contractures or unkempt General Appearance ED: well developed and NAD; Negative for unkempt, cachectic, contractures or pallor Nutritional Appearance: Negative for cachectic or obese HEENT Reports moist mucous membranes atraumatic; Negative for trauma or tenderness Eyes PERRL and EOMs intact bilaterally Neck no lymphadenopathy, supple, no meningeal signs and no JVD Resp No normal respiratory effort and No clear to auscultation bilaterally Resp Narrative: Prolonged expiratory phase. Expiratory wheezes. No rales or rhonchi. Equal symmetrical. Chest wall nontender. No crepitance or subcu air. Auscultation: wheezes; Negative for rales or rhonchi Cardio Cardio Narrative: Bradycardia rate 40-50. No murmur. Rate: bradycardia GI non-distended and no masses Palpation: soft; Negative for tender, guarding, mass or rebound tenderness present Back/Spine no CVA tenderness and normal to inspection Extremity normal to inspection General Extremety ED: Negative for edema or tenderness General Extremity: Negative for edema Neuro oriented x3 and CN's II-XII intact bilaterally Sensorium / Orientation: alert, oriented to person, oriented to place and oriented to time; Negative for orientation impaired, confused or lethargic Speech: speech normal Motor Exam: strength 5/5 throughout Psych mental status grossly normal Appearance: Negative for unkempt Mood & Affect: Negative for depressed, anxious or tearful Thought Process: normal thought process Skin no wounds and skin turgor normal General Skin Exam: Negative for jaundice or pallor Lesions: no lesions Rashes: no rashes Trauma: Negative for abrasion, laceration or puncture MDM MDM MDM Narrative Medical decision making narrative: 79-year-old male shortness of breath expiratory wheezing suspect exacerbation ofCOPD. He also has abradycardia rate in the 40s. Cardiac and respiratory workup. Treated with DuoNeb and albuterol aerosols. Solu-Medrol IV for the wheezing. Differential includes COPD, cardiac event, dysrhythmia. Rule out pneumonia Repeat exam patient is doing well at 9:25 PM. I spoke to both he and his sister. His wheezing is much better after the aerosol treatment and Solu-Medrol. We went over his chest x-ray. This could all be chronic changes possibly bilateral pneumonia. He will be started on IV Rocephin and Zithromax. I have the hospitalist on page. He remains in a junctional bradycardia rate 38-43 but he has a good blood pressure with that 156/67. Sister said he has never had a history of abnormal cardiac rhythm. Patient will be admitted to the PCU. I did speak to the hospitalist. He will admit the patient. He didwant a CT ofthe chest obtained without contrast for a baseline and also for further evaluation for p ossible pneumonia versus chronic scarring. History & Record Review Discussion w/independent historian: Patient and Family Additional record(s) reviewed:: Prior inpatient record, Prior outpatient record,Prior ED visit and Prior labs Lab Data Attestation: I reviewed the patient's lab results. Lab results narrative: CBC shows normal white count 8. H&H 14 and 43. Platelets 196. Electrolytes show a gap of 11. BUN of 33 creatinine 1.15 consistent with dehydration. Glucose 103. Troponin 41. 2-hour troponin be obtained. Labs: Laboratory Results - last 24 hr 06/27/24 19:10 WBC 8.0 RBC 4.74 Hgb 14.4 Hct 43.0 MCV 90.7 MCH 30.4 MCHC 33.5 RDW Std Deviation 45.5 H RDW Coeff of Benny 13.8 Plt Count 196 MPV 11.3 Immature Gran % (Auto) 0.300 Neut % (Auto) 72.3 H Lymph % (Auto) 16.2 L Yell % (Auto) 8.3 Eos % (Auto) 2.1 Baso % (Auto) 0.8 Absolute Neuts (auto) 5.8 Absolute Lymphs (auto) 1.29 Nucleated RBC % 0 Sodium 138 Potassium 4.5 Chloride 110 H Carbon Dioxide 17.4 L Anion Gap 11 BUN 33 H Creatinine 1.15 Estim Creat Clear Calc 52.09 Est GFR (MDRD) Non-Af 65 BUN/Creatinine Ratio 28.9 H Glucose 103 H Calcium 9.0 Troponin T High Sens 41 H Radiography Chest X-Ray - ED: 2 View, Read by ED Physician, Normal, Heart, Mediastinum, BonyStructures, ChronicChanges, Right Infiltrate, Left Infiltrate and Right Effusion Diagnostic Testing: Clinical Impression(s) from Imaging Studies Chest X-Ray 06/27/24 20:23 IMPRESSION: 1. Mild bilateral perihilar patchy interstitial and alveolar opacities. 2. Small bilateral pleural effusions. Reading Location: [facility] Chest x-ray, 2 views, AP and lateral, interpreted both by myself and the radiologist. Shows a normal cardiac silhouette. Bilateral opacities which could be chronic changes and scarring, could be bilateral infiltrates. He also has a small right pleural effusion. I did compare this to her prior chestCT from a couple years ago and it does look significantly worse. He will be treated for potential pneumonia. Rhythm Strip Rhythm Strip: Junctional rhythm Rate: 43 Ectopy: PVC(s) EKG Initial EKG: Attestation: I personally reviewed and interpreted this EKG as follows: Interpretation: Junctional Comments: Junctional rhythm rate of 43. Occasional PVC. No acute signs of ME or ischemia. No old x-ray available for comparison. Prior: No Prior Discharge Plan Dx/Rx/DC Orders Clinical Impression: Acute exacerbation of chronic obstructive pulmonary disease, Pneumonia, Junctional bradycardia Disposition Disposition: Acute Care Hospital [facility] What to do if you have Problems For any increased pain, shortness of breath, bleeding, nausea or vomiting, chestpain, or any unexpected problems, contact your Primary Care Provider. Call [facility] ([phone]) or report tothe closest Emergency Room. Call 911 if necessary. 06/27/242142 Cosigner Signature (if applicable): CC: Dr. Lucia Trimble MD ~ Signed ADDENDUM by Dr. Valente Beckford MD on 06/27/24 at 2210 COVID, flu and RSV are negative. Hospitalist requested a CT of the chest be obtained. Those results will be checked out to him. He will follow them up. 06/27/240 Cosigner Signature (if applicable): cc: Dr. Lucia Trimble MD ~* Signed [facility]04-12-2025 Radiology Diagnostic study note [facility] Imaging Services [address], [place] [address] Chest PA and Lateral MR#: [id number] Acct: [id number] Name: WILIAN CAMPBELL Rep #: [id number] : 1945 M 79 From: Henry Anderson DO PCP: Dr. Lucia Trimble MD Status: REG ER Study:Chest PA and Lateral Date of Exam: 06/27/24 Exam# [id number] Ordering Dr: Ronda Beckford MD PROCEDURE: CHEST PA AND LATERAL 06/27/2024 REASON FOR EXAM: Chest pain TECHNIQUE: Frontal and lateral views of the chest. COMPARISON: None FINDINGS: Cardiomediastinal silhouette is within normal limits. Small bilateral pleural effusions. Patchy bilateral perihilar interstitial/alveolar opacities. No sizable pneumothorax. RAD/Chest PA and Lateral IMPRESSION: 1. Mild bilateral perihilar patchy interstitial and alveolar opacities. 2. Small bilateral pleural effusions. Reading Location: [facility] CC: Dr. Lucia Trimble MD; Dr. Valente Beckford MD ~ Wagon Driller: Signed [facility]04-12-2025 Discharge summary Author Valente Beckford [facility] Note Date/Time June 27, 2024 10: 10pm [facility] Medical Records Department [address] [place] [id number] Emergency Department Summary 06/27/24 MR#: [id number] Acct: [id number] Name: WILIAN CAMPBELL Rep #:[id number] : 1945 79 From: Valente Beckford MD PCP: Dr. Lucia Trimble MD Status:ADM IN Location: [place] [address] HPI History of Present Illness Chief Complaint: Shortness of Breath Informant: patient and family Onset/Context/Timing Onset: Today and Yesterday Context: gradual Timing: Continuous Quality: Positive for Dyspnea on exertion and Wheezing Current Severity: Moderate Maximum Severity: Moderate Associated Symptoms cough and clear sputum; Negative for fever or sore throat Chest Pain: Positive for None Narrative Narrative: 70-year-old male history of COPD, ankylosing spondylitis, aortic aneurysm. Previously was on home O2 after having pneumonia and being in the hospital but currently is off the O2. Has been more short of breath with with exertion the last 2 days. Denies any chest pain. He has a chronic cough with chronic productive sputum has been unchanged. No fever. No leg swelling. Denies any cardiac history. No ME nor CABG nor stent. He is currently not on prednisone. He does use Trilogy inhaler daily. PE Risk Factors: Negative for Cancer, OCP + Smoking + > 35, Prior DVT or PE, Recent immobilization, Recent surgery or Recent travel Prior similar symptoms: Yes Recent Illness/Hospitalization: No PFSH PFSH Medical History Esophageal diverticulum Ankylosing spondylitis Vision problems High blood pressure Back pain Arthritis Alcohol abuse Right bundle branch block (RBBB) Obstructive sleep apnea Hyperlipidemia Essential hypertension Ascending aortic aneurysm Tobacco use disorder, continuous Pneumonia Spondylitis Ankylosis Dermal hypersensitivity reaction Macular degeneration COPD (chronic obstructive pulmonary disease) Home Medications ?Medication ?Instructions ?Recorded ?Last Taken ?Type vit C 250 mg-vit E 90 mg-zinc 40 1 tablet PO DAILY 09/05 Unknown History mg-copper 1 [id number] capsule (PreserVision AREDS-2) dupilumab 300 mg/2 mL subcutaneous 300 mg subcut Q2W 0 07/11/21 Unknown History pen injector (Dupixent) cholecalciferol (vitamin D3) 125 125 mcg PO DAILY 12/18 Unknown History mcg (5,000 unit) capsule fluticasone fur. 100 mcg-umeclid 1 inh inhalation PRICILLA Y #3 ea 05/08/24 Unknown Rx 62.5 mcg-vilant 25 mcg inhalat.powder (Trelegy Ellipta) simvastatin 40 mg tablet 40 mg PO DAILY #90 tabs 07/10 Unknown Rx losartan 50 mg tablet 50 mg PO DAILY #90 tabs 05/16 05/12 Unknown Rx Allergy/AdvReac Type Severity Reaction Status Date / Time Iodinated Contrast Media AdvReac Mild Nausea Verified 06/27/24 19:08 Family History Father Psoriasis Thoracic aortic aneurysm (TAA) Mother Skin cancer Sister Lupus Thoracic aortic aneurysm (TAA) Breast cancer Brother Crohn's disease Ulcerative colitis Thoracic aortic aneurysm (TAA) Sister Psoriatic arthritis Breast cancer Other Uterine cancer Surgical History H/O chest tube placement History of tonsillectomy H/O colonoscopy Social History household members: none current occupational status: retired 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 Smoking Status: Current every day smoker tobacco type: cigarettes Tobacco: How many years used: 57 Electronic Cigarette Use: not used how long ago did patient quit smoking: patient cut down to about 0.5ppd second hand exposure: Yes (father smoked for a few years) quit status: has quit before alcohol intake: never substance use type: does not use what type of physical activity do you participate in: none seatbelt use: always do you feel safe at home: Yes ROS ROS ED Constitutional Constitutional ED: Denies chills or fever(s) Eyes Eyes: Denies blurry vision ENT ENT ED: Denies ear pain Cardiovascular Cardiovascular: Denies chest pain or palpitations Respiratory/Chest Respiratory/Chest: Reports cough, dyspnea, dyspnea on exertion, sputum and other Gastrointestinal Gastrointestinal: Denies abdominal pain Genitourinary Genitourinary ED: Denies dysuria or hematuria Musculoskeletal Musculoskeletal: Denies arthralgias Integumentary Denies abscess Neurologic Neurologic: Denies headache(s) Psychiatric Psychiatric: Denies anxiety or depression Endocrine Endocrinology: Denies cold intolerance Hematologic/Lymphatic Hematologic/Lymphatic: Denies easy bleeding Allergic/Immunologic Allergic/Immunologic ED: Denies mouth swelling, tongue swelling or urticaria EXAM Physical Exam Narrative Exam Narrative: 79-year-old male sitting upright in bed. Vital signs are stable. Pulse ox is reading in the room is 96%. Room air no hypoxia. H EENT exam pupils round react light. Moist mucous membranes. Neck nontender JVD. No lymphadenopathy. Lungs coarse breath sounds bilaterally. Expiratory wheezing throughout. No rales or rhonchi. Equal symmetrical. Chest wall ribs nontender. No crepitance. Abdomen soft nontender. Heart bradycardic rate about 40-50 no murmur. Back nontender. Moving all 4 extremities. Nontender no edema no cords. Calves nontender. 5 out of 5 checker loader strength. Dorsi plantarflexion intact. Neurologically he is awake and alert. Answering questions following commands. Const Vital Signs: 06/27/24 19:08 06/27/24 19:38 06/27/24 19:38 Temperature 97.7 F L Temperature Source Oral Pulse Rate 40 L Respiratory Rate 28 H 16 Respiratory Effort Respiratory Depth Respiratory Pattern Blood Pressure 160/39 H Blood Pressure Mean 79 Pulse Ox 93 Oxygen Delivery Method Room Air Room Air 06/27/24 19:40 06/27/24 20:52 06/27/24 20:59 Temperature Temperature Source Pulse Rate 39 L 43 L Respiratory Rate 19 H 16 Respiratory Effort Short of Breath Respiratory Depth Normal Respiratory Pattern Hyperpnea Blood Pressure 156/47 H 156/67 H Blood Pressure Mean 83 96 Pulse Ox 96 95 Oxygen Delivery Method Room Air Room Air Room Air 06/27/24 21:34 Temperature 97.8 F Temperature Source Pulse Rate 46 L Respiratory Rate 18 Respiratory Effort Respiratory Depth Respiratory Pattern Blood Pressure 169/48 H Blood Pressure Mean 88 Pulse Ox 94 Oxygen Delivery Method Positive well developed; Negative for obese, cachectic, contractures or unkempt General Appearance ED: well developed and NAD; Negative for unkempt, cachectic, contractures or pallor Nutritional Appearance: Negative for cachectic or obese HEENT Reports moist mucous membranes atraumatic; Negative for trauma or tenderness Eyes PERRL and EOMs intact bilaterally Neck no lymphadenopathy, supple, no meningeal signs and no JVD Resp No normal respiratory effort and No clear to auscultation bilaterally Resp Narrative: Prolonged expiratory phase. Expiratory wheezes. No rales or rhonchi. Equal symmetrical. Chest wall nontender. No crepitance or subcu air. Auscultation: wheezes; Negative for rales or rhonchi Cardio Cardio Narrative: Bradycardia rate 40-50. No murmur. Rate: bradycardia GI non-distended and no masses Palpation: soft; Negative for tender, guarding, mass or rebound tenderness present Back/Spine no CVA tenderness and normal to inspection Extremity normal to inspection General Extremety ED: Negative for edema or tenderness General Extremity: Negative for edema Neuro oriented x3 and CN's II-XII intact bilaterally Sensorium / Orientation: alert, oriented to person, oriented to place and oriented to time; Negative for orientation impaired, confused or lethargic Speech: speech normal Motor Exam: strength 5/5 throughout Psych mental status grossly normal Appearance: Negative for unkempt Mood & Affect: Negative for depressed, anxious or tearful Thought Process: normal thought process Skin no wounds and skin turgor normal General Skin Exam: Negative for jaundice or pallor Lesions: no lesions Rashes: no rashes Trauma: Negative for abrasion, laceration or puncture MDM MDM MDM Narrative Medical decision making narrative: 79-year-old male shortness of breath expiratory wheezing suspect exacerbation ofCOPD. He also has a bradycardia rate in the 40s. Cardiac and respiratory workup. Treated with DuoNeb and albuterol aerosols. Solu-Medrol IV for the wheezing. Differential includes COPD, cardiac event, dysrhythmia. Rule out pneumonia Repeat exam patient is doing well at 9:25 PM. I spoke to both he and his sister. His wheezing is much better after the aerosol treatment and Solu-Medrol. We went over his chest x-ray. This could all be chronic changes possibly bilateral pneumonia. He will be started on IV Rocephin and Zithromax. I have the hospitalist on page. He remains in a junctional bradycardia rate 38-43 but he has a good blood pressure with that 156/67. Sister said he has never had a history of abnormal cardiac rhythm. Patient will be admitted to the PCU. I did speak to the hospitalist. He will admit the patient. He did want a CT ofthe chest obtained without contrast for a baseline and also for further evaluation for possible pneumonia versus chronic scarring. History & Record Review Discussion w/independent historian: Patient and Family Additional record(s) reviewed:: Prior inpatient record, Prior outpatient record,Prior ED visit and Prior labs Lab Data Attestation: I reviewed the patient's lab results. Lab results narrative: CBC shows normal white count 8. H&H 14 and 43. Platelets 196. Electrolytes show a gap of 11. BUN of 33 creatinine 1.15 consistent with dehydration. Glucose 103. Troponin 41. 2-hour troponin be obtained. Labs: Laboratory Results - last 24 hr 06/27/24 19:10 WBC 8.0 RBC 4.74 Hgb 14.4 Hct 43.0 MCV 90.7 MCH 30.4 MCHC 33.5 RDW Std Deviation 45.5 H RDW Coeff of Benny 13.8 Plt Count 196 MPV 11.3 Immature Gran % (Auto) 0.300 Neut % (Auto) 72.3 H Lymph % (Auto) 16.2 L Yell % (Auto) 8.3 Eos % (Auto) 2.1 Baso % (Auto) 0.8 Absolute Neuts (auto) 5.8 Absolute Lymphs (auto) 1.29 Nucleated RBC % 0 Sodium 138 Potassium 4.5 Chloride 110 H Carbon Dioxide 17.4 L Anion Gap 11 BUN 33 H Creatinine 1.15 Estim Creat Clear Calc 52.09 Est GFR (MDRD) Non-Af 65 BUN/Creatinine Ratio 28.9 H Glucose 103 H Calcium 9.0 Troponin T High Sens 41 H Radiography Chest X-Ray - ED: 2 View, Read by ED Physician, Normal, Heart, Mediastinum, BonyStructures, Chronic Changes, Right Infiltrate, Left Infiltrate and Right Effusion Diagnostic Testing: Clinical Impression(s) from Imaging Studies Chest X-Ray 06/27/24 20:23 IMPRESSION: 1. Mild bilateral perihilar patchy interstitial and alveolar opacities. 2. Small bilateral pleural effusions. [facility] Chest x-ray, 2 views, AP and lateral, interpreted both by myself and the radiologist. Shows a normal cardiac silhouette. Bilateral opacities which could be chronic changes and scarring, could be bilateral infiltrates. He also has a small right pleural effusion. I did compare this to her prior chest CT from a couple years ago and it does look significantly worse. He will be treated for potential pneumonia. Rhythm Strip Rhythm Strip: Junctional rhythm Rate: 43 Ectopy: PVC(s) EKG Initial EKG: Attestation: I personally reviewed and interpreted this EKG as follows: Interpretation: Junctional Comments: Junctional rhythm rate of 43. Occasional PVC. No acute signs of ME or ischemia. No old x-ray available for comparison. Prior: No Prior Discharge Plan Dx/Rx/DC Orders Clinical Impression: Acute exacerbation of chronic obstructive pulmonary disease, Pneumonia, Junctional bradycardia Disposition Disposition: Acute Care Hospital [facility] What to do if you have Problems For any increased pain, shortness of breath, bleeding, nausea or vomiting, chestpain, or any unexpected problems, contact your Primary Care Provider. Call [facility] ([phone]) or report to the closest Emergency Room. Call 911 if necessary. 06/27/242142 <Electronically signed by Valente Beckford MD> Cosigner Signature (if applicable): CC: Dr. Lucia Trimble MD ~ Signed ADDENDUM by Dr. Valente Beckford MD on 06/27/24 at 2210 COVID, flu and RSV are negative. Hospitalist requested a CT of the chest be obtained. Those results will be checked out to him. He will follow them up. 06/27/240<Electronically signed by Valente Beckford MD> Cosigner Signature (if applicable): cc: Dr. Lucia Trimble MD ~* Signed [facility] Work Phone: 1(310) 106-790502-21-2025 Evaluation note* Diagnosis Onset Date Resolution Status Admit Date COPD (chronic obstructive pulmonary disease) chronic April 8:46am Obstructive sleep apnea chronic F 2024 8:46am Smoking greater than 30 pack years May 08, 025 8:46am COPD (chronic obstructive pulmonary disease) chronic May 27 025 8:19am Essential hypertension chronic [facility] 2024 8:19am Hyperlipidemia chronic May 8:19am Obstructive sleep apnea chronic M arch 2024 8:19am Tobacco use disorder, continuous chronic May 27, 2024 8:19am Ascending aortic aneurysm chronic May 28, 2024 3:15pm Essential hypertension chronic [facility] 2024 3:15pm Hyperlipidemia chronic May 3:15pm Smoking greater than 30 pack years chronic May 28, 2024 3:15pm [facility] Work Phone: 1(549) 198-115802-21-2025 Evaluation note* Diagnosis Onset Date Resolution Status Admit Date COPD (chronic obstructive pulmonary disease) chronic April 8:46am Obstructive sleep apnea chronic F 2024 8:46am Smoking greater than 30 pack years chronic May 08, 025 8:46am COPD (chronic obstructive pulmonary disease) chronic May 27, 025 8:19am Essential hypertension chronic [facility] 2024 8:19am Hyperlipidemia chronic May 8:19am Obstructive sleep apnea chronic M arch 2024 8:19am Tobacco use disorder, continuous chronic May 27, 2024 8:19am Ascending aortic aneurysm chronic May 28, 2024 3:15pm Essential hypertension chronic [facility] 2024 3:15pm Hyperlipidemia chronic May 3:15pm Smoking greater than 30 pack years chronic May 28, 2024 3:15pm Dehydration acute June 27, 025 10:02pm Junctional bradycardia acute Ap ril 2024 10:02pm Multifocal pneumonia acute Apri l 2024 10:02pm Pneumonia acute June 27 10:02pm Respiratory insufficiency acute June 27, 2024 10:02pm Right bundle branch block (RBBB) acute June 27, 2024 10:02pm Acute exacerbation of chroni c obstructive pulmonary disease chronic Ap ril 2024 10:02pm Essential hypertension chronic Ap ril 2024 10:02pm Smoking greater than 30 pack years chronic June 27, 2024 10:02pm [facility] Work Phone: 1(194) 261-669802-21-2025 Evaluation note* Diagnosis Onset Date Resolution Status Admit Date COPD (chronic obstructive pulmonary disease) chronic April 8:46am Obstructive sleep apnea chronic F ebruary 2024 8:46am Smoking greater than 30 pack years chronic May 08, 025 8:46am COPD (chronic obstructive pulmonary disease) chronic May 27 025 8:19am Essential hypertension chronic Ma rch 2024 8:19am Hyperlipidemia chronic May 8:19am Obstructive sleep apnea chronic M arch 2024 8:19am Tobacco use disorder, continuous chronic May 27, 2024 8:19am Ascending aortic aneurysm chronic May 28, 2024 3:15pm Essential hypertension chronic Ma rch 2024 3:15pm Hyperlipidemia chronic May 3:15pm Smoking greater than 30 pack years chronic May 28, 2024 3:15pm Complete heart block acute Apri l 2024 10:02pm Dehydration acute June 27, 025 10:02pm Elevated troponin acute June 162024 10:02pm Junctional bradycardia acute Ap ril 2024 10:02pm Multifocal pneumonia acute Apri l 2024 10:02pm Pneumonia acute June 27 10:02pm Respiratory insufficiency acute June 27, 2024 10:02pm Right bundle branch block (RBBB) acute June 27, 2024 10:02pm Acute exacerbation of chroni c obstructive pulmonary disease chronic Ap ril 2024 10:02pm Ascending aortic aneurysm chronic June 27, 2024 10:02pm COPD (chronic obstructive pulmonary disease) chronic June 27, 025 10:02pm Essential hypertension chronic Ap ril 2024 10:02pm Hyperlipidemia chronic June 10:02pm Smoking greater than 30 pack years chronic June 27, 2024 10:02pm [facility] Work Phone: 1(952) 252-914602-21-2025 Evaluation note* Diagnosis Onset Date Resolution Status Admit Date COPD (chronic obstructive pulmonary disease) chronic April 8:46am Obstructive sleep apnea chronic F ebruary 2024 8:46am Smoking greater than 30 pack years chronic May 08, 025 8:46am COPD (chronic obstructive pulmonary disease) chronic May 27 025 8:19am Essential hypertension chronic Ma rch 2024 8:19am Hyperlipidemia chronic May 8:19am Obstructive sleep apnea chronic M arch 2024 8:19am Tobacco use disorder, continuous chronic May 27, 2024 8:19am Ascending aortic aneurysm chronic May 28, 2024 3:15pm Essential hypertension chronic Ma rch 2024 3:15pm Hyperlipidemia chronic May 3:15pm Smoking greater than 30 pack years chronic May 28, 2024 3:15pm Complete heart block acute Apri l 2024 10:02pm Dehydration acute June 27, 10:02pm Elevated troponin acute June 162024 10:02pm Junctional bradycardia acute Ap ril 2024 10:02pm Multifocal pneumonia acute Apri l 2024 10:02pm Pneumonia acute June 27 10:02pm Respiratory insufficiency acute June 27, 2024 10:02pm Right bundle branch block (RBBB) acute June 27, 2024 10:02pm Acute exacerbation of chroni c obstructive pulmonary disease chronic Ap ril 2024 10:02pm Ascending aortic aneurysm chronic June 27, 2024 10:02pm COPD (chronic obstructive pulmonary disease) chronic June 27, 025 10:02pm Essential hypertension chronic Ap ril 2024 10:02pm Hyperlipidemia chronic June 10:02pm Smoking greater than 30 pack years chronic June 27, 2024 10:02pm Complete heart block acute Apri l 2024 8:42am Presence of permanent cardia c pacemaker acute June 30, 2024 8:42am Bradycardia acute July 04, 025 10:08pm Leukocytosis acute July 04, 2024 10:08pm Pacemaker failure acute June 162024 10:08pm [facility] Work Phone: 1(271) 307-449302-21-2025 Evaluation note* Diagnosis Onset Date Resolution Status Admit Date COPD (chronic obstructive pulmonary disease) chronic April 8:46am Obstructive sleep apnea chronic F ebruary 2024 8:46am Smoking greater than 30 pack years chronic May 08, 025 8:46am COPD (chronic obstructive pulmonary disease) chronic May 27 025 8:19am Essential hypertension chronic Ma [facility] 2024 8:19am Hyperlipidemia chronic May 8:19am Obstructive sleep apnea chronic M arch 2024 8:19am Tobacco use disorder, continuous chronic May 27, 2024 8:19am Ascending aortic aneurysm chronic May 28, 2024 3:15pm Essential hypertension chronic Ma [facility] 2024 3:15pm Hyperlipidemia chronic May 3:15pm Smoking greater than 30 pack years chronic May 28, 2024 3:15pm Dehydration acute June 27, 10:02pm Elevated troponin acute June 162024 10:02pm Junctional bradycardia acute Ap ril 2024 10:02pm Multifocal pneumonia acute Apri l 2024 10:02pm Pneumonia acute June 27 10:02pm Respiratory insufficiency acute June 27, 2024 10:02pm Right bundle branch block (RBBB) acute June 27, 2024 10:02pm Acute exacerbation of chroni c obstructive pulmonary disease chronic Ap ril 2024 10:02pm Ascending aortic aneurysm chronic June 27, 2024 10:02pm COPD (chronic obstructive pulmonary disease) chronic June 27, 025 10:02pm Essential hypertension chronic Ap ril 2024 10:02pm Hyperlipidemia chronic June 10:02pm Smoking greater than 30 pack years chronic June 27, 2024 10:02pm Complete heart block resolved Apri l 2024 10:02pm Presence of permanent cardia c pacemaker acute June 30, 2024 8:42am Complete heart block resolved Apri l 2024 8:42am Bradycardia acute July 05 2 025 1:32pm Dislodgement of ventricular electrode lead of cardiac pacemaker acute July 05, 2024 1:32pm Leukocytosis acute July 05, 2024 1:32pm Pacemaker failure acute June 172024 1:32pm Ascending aortic aneurysm chronic July 05, 2024 1:32pm COPD (chronic obstructive pulmonary disease) chronic July 05 2 025 1:32pm Essential hypertension chronic Ap ril 2024 1:32pm Dislodgement of ventricular electrode lead of cardiac pacemaker acute July 07, 2024 9:32am Presence of permanent cardia c pacemaker acute July 07, 2024 9:32am [facility] Work Phone: 1(197) 866-329102-21-2025 Evaluation note* Diagnosis Onset Date Resolution Status Admit Date COPD (chronic obstructive pulmonary disease) chronic April 8:46am Obstructive sleep apnea chronic F ebruary 2024 8:46am Smoking greater than 30 pack years inactive May 08, 8:46am COPD (chronic obstructive pulmonary disease) chronic May 27 8:19am Hyperlipidemia chronic May 8:19am Obstructive sleep apnea chronic [facility] 2024 8:19am Tobacco use disorder, continuous chronic May 27, 2024 8:19am Essential hypertension inactive [facility] 2024 8:19am Hyperlipidemia chronic May 3:15pm Ascending aortic aneurysm inactive May 28, 2024 3:15pm Essential hypertension inactive [facility] 2024 3:15pm Smoking greater than 30 pack years inactive May 28, 2024 3:15pm Right bundle branch block (RBBB) acute June 27, 2024 10:02pm COPD (chronic obstructive pulmonary disease) chronic June 27 025 10:02pm Hyperlipidemia chronic June 10:02pm Complete heart block resolved Apri l 2024 10:02pm Acute exacerbation of chroni c obstructive pulmonary disease inactive Ap ril 2024 10:02pm Ascending aortic aneurysm inactive June 27, 2024 10:02pm Dehydration inactive June 27 10:02pm Elevated troponin inactive June 162024 10:02pm Essential hypertension inactive Ap ril 2024 10:02pm Junctional bradycardia inactive Ap ril 2024 10:02pm Multifocal pneumonia inactive Apri l 2024 10:02pm Pneumonia inactive June 27 10:02pm Respiratory insufficiency inactive June 27, 2024 10:02pm Smoking greater than 30 pack years inactive June 27, 2024 10:02pm Complete heart block resolved Apri l 2024 8:42am Presence of permanent cardia c pacemaker inactive June 30, 2024 8:42am COPD (chronic obstructive pulmonary disease) chronic July 05 025 1:32pm Ascending aortic aneurysm inactive July 05, 2024 1:32pm Bradycardia inactive July 05 1:32pm Dislodgement of ventricular electrode lead of cardiac pacemaker inactive July 05, 2024 1:32pm Essential hypertension inactive 2024 1:32pm Leukocytosis inactive July 05, 2024 1:32pm Pacemaker failure inactive June 172024 1:32pm Dislodgement of ventricular electrode lead of cardiac pacemaker inactive July 07, 2024 9:32am Presence of permanent cardia c pacemaker inactive July 07, 2024 9:32am COPD (chronic obstructive pulmonary disease) chronic July 15 12:25pm Obstructive sleep apnea chronic A pril 2024 12:25pm Smoking greater than 30 pack years inactive July 15, 2024 12:25pm COPD (chronic obstructive pulmonary disease) chronic August 04 9:45am Obstructive sleep apnea chronic M 2024 9:45am [employer] Work Phone: [phone]) 766-450711-06-2024 Instructions* Patient Instructions* Abril Pisano II, OD - 01/22/2024 2:30 PM EST Assessment and Plan H35.3190 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 Monitor for change. Recheck yearly or sooner if needed. Z96.1 Pseudophakia of both eyes Comment: Posterior chamber intraocular lenses are well positioned and clear. 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 Recheck as needed. I have confirmed and edited as necessary the relevant HPI, ophthalmic history, ROS, and the neuro exam findings as obtained by others. I have seen and examined Wilian Campbell. I have discussed the case and the management of this patient's care with the Resident/Fellow, if applicable. I also have reviewed and agree with the assessment and plan as stated above and agree withall of its relevant components. [facility] NoteHNO ID: [id number] Author: ABRIL PISANO II, OD Service: ? 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 Monitor for change. Recheck yearly or sooner if needed. Z96.1 Pseudophakia of both eyes Comment: Posterior chamber intraocular lenses are well positioned and clear. 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 Recheck as needed. I have confirmed and edited as necessary the relevant HPI, ophthalmic history, ROS, and the neuro exam findings as obtained by others. I have seen and examined Wilian Campbell. I have discussed the case and the management of this patient's care with the Resident/Fellow, if applicable. 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 Monitor for change. Recheck yearly or sooner if needed. Z96.1 Pseudophakia of both eyes Comment: Posterior chamber intraocular lenses are well positioned and clear. 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 Recheck as needed. I have confirmed and edited as necessary the relevant HPI, ophthalmic history, ROS, and the neuro exam findings as obtained by others. I have seen and examined Wilian Campbell. I have discussed the case and the management of this patient's care with the Resident/Fellow, if applicable. I also have reviewed and agree with the assessment and plan as stated above and agree withall of its relevant components. 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 Recheck as needed. Instruct patient to immediately report any change in condition outside of expected and discussed symptoms. I have confirmed and edited as necessary the relevant HPI, ophthalmic history, ROS, and the neuro exam findings as obtained by others. I have seen and examined Wilian Campbell. I have discussed the case and the management of this patient's care with the Resident/Fellow, if applicable. I also have reviewed and agree with the assessment and plan as stated above and agree withall of its relevant components. documented in [facility]06-[facility]24 NoteHNO ID: [id number] Author: ABRIL PISANO II, OD Service: ? 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 Recheck as needed. Instruct patient to immediately report any change in condition outside of expected and discussed symptoms. I have confirmed and edited as necessary the relevant HPI, ophthalmic history, ROS, and the neuro exam findings as obtained by others. I have seen and examined Wilian Campbell. I have discussed the case and the management of this patient's care with the Resident/Fellow, if applicable. 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 Recheck as needed. Instruct patient to immediately report any change in condition outside of expected and discussed symptoms. I have confirmed and edited as necessary the relevant HPI, ophthalmic history, ROS, and the neuro exam findings as obtained by others. I have seen and examined Wilian Campbell. I have discussed the case and the management of this patient's care with the Resident/Fellow, if applicable. I also have reviewed and agree with the assessment and plan as stated above and agree withall of its relevant components. 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 Stable peripheral retinas. Monitor yearly. Z96.1 Pseudophakia of both eyes Comment: Posterior chamber intraocular lenses are well positioned and clear. H04.123 Chronically dry eyes, bilateral Comment: Refresh Relieva as needed I have confirmed and edited as necessary the relevant ophthalmic history, ROS, and the neuro exam findings as obtained by others. I have seen and examined Wilian Campbell. I have discussed the case and the management of this patient's care with the Resident/Fellow, if applicable. I also have reviewed and agree with the assessment and plan as stated above and agree withall of its relevant components. 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 Stable peripheral retinas. Monitor yearly. Z96.1 Pseudophakia of both eyes Comment: Posterior chamber intraocular lenses are well positioned and clear. H04.123 Chronically dry eyes, bilateral Comment: Refresh Relieva as needed I have confirmed and edited as necessary the relevant ophthalmic history, ROS, and the neuro exam findings as obtained by others. I have seen and examined Wilian Campbell. I have discussed the case and the management of this patient's care with the Resident/Fellow, if applicable. I also have reviewed and agree with the assessment and plan as stated above and agree withall of its relevant components. Abril Pisano II, OD documented [facility]Evaluation [facility]* Diagnosis Onset Date Resolution Status Ascending aortic aneurysm ac farshad [id number] acute Tobacco use disorder, continuous acute [facility] Work Phone: Evaluation note* Diagnosis Onset Date Resolution Status Ascending aortic aneurysm ch ronic [id number] chronic Tobacco use disorder, continuous chronic Shortness of breath on exertion acute Ascending aortic aneurysm ch ronic Essential hypertension chron ic Hyperlipidemia chronic [facility] Work Phone: Evaluation note* Diagnosis Onset Date Resolution Status Shortness of breath on exertion acute Ascending aortic aneurysm ch ronic Essential hypertension chron ic Hyperlipidemia chronic Obstructive sleep apnea acut e Tobacco use disorder, continuous chronic Shortness of breath noneacti ve [facility] Work Phone: Evaluation note* Diagnosis Onset Date Resolution Status Obstructive sleep apnea acut e Tobacco use disorder, continuous chronic Shortness of breath noneacti ve [facility] Work Phone: Evaluation note* Diagnosis Onset Date Resolution Status Obstructive sleep apnea acut e Tobacco use disorder, continuous chronic Shortness of breath noneacti ve Obstructive sleep apnea acut e COPD (chronic obstructive pulmonary disease) chronic Tobacco use disorder, continuous chronic [facility] Work Phone: Evaluation note* Diagnosis Onset Date Resolution Status Oral thrush acute COPD (chronic obstructive pulmonary disease) chronic 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 Oral thrush acute COPD (chronic obstructive pulmonary disease) chronic 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 Smoking greater than 30 pack years [facility] Work Phone: Evaluation note* Diagnosis Onset Date Resolution Status Oral thrush acute COPD (chronic obstructive pulmonary disease) chronic 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 Smoking greater than 30 pack years chronic Ascending aortic aneurysm ch ronic Essential hypertension chron ic Hyperlipidemia [facility] Work Phone: Evaluation note* Diagnosis 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 Nonexudative senile macular degeneration of retina Pseudophakia of both eyes Lens replaced by other means Chronically dry eyes, bilateral documented in this encounter [facility] note* Diagnosis 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- Primary documented in this encounter [facility] note* Diagnosis 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 Nonexudative senile macular degeneration of retina Pseudophakia of both eyes Lens replaced by other means Ulcerative blepharitis of left lower eyelid Ulcerative blepharitis documented in this encounter [facility] for referral (narrative)No reason for referral information availableWMercy [facility] Work Phone: Summary Purpose Family History No Family History Records Found Relationship Condition Age at Onset Recorded Date/T jacek father Psoriasis Unknown mother Malignant neoplasm of skin Unknown sister Lupus Unknown brother Crohn's disease Unknown Ulcerative colitis Unknown sister Psoriatic arthritis Unknown Relationship Condition Age at Onset Recorded Date/T jacek Not Specified Malignant neoplasm of uterus Unknown father Psoriasis Unknown Thoracic aortic aneurysm (TAA) Unknown mother Malignant neoplasm of skin Unknown sister Lupus Unknown brother Crohn's disease Unknown Ulcerative colitis Unknown sister Psoriatic arthritis Unknown Relationship Condition Age at Onset Recorded Date/T jacek Not Specified Malignant neoplasm of uterus Unknown father Psoriasis Unknown Thoracic aortic aneurysm (TAA) Unknown mother Malignant neoplasm of skin Unknown sister Lupus Unknown Malignant neoplasm of breast Unknown brother Crohn's disease Unknown Ulcerative colitis Unknown sister Psoriatic arthritis Unknown Advance Directives No Advanced Directives Records FoundDocuments on File Type Date Recorded 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 Yes June 27, 2024 7:39pm Name of Medical Power of Weight Reducing Technician [place]co [place] June 27, 2024 7:39pm Advance Directive Response Recorded Date/ Time Living Will Yes June 27, 2024 11:03pm Do you have a Healthcare Power of Weight Reducing Technician? Yes June 27, 2024 11:03pm Name of Medical Power of Weight Reducing Technician [place]co [place] June 27, 2024 11:03pm Advance Directive Response Recorded Date/ Time Living Will Yes June 27, 2024 11:03pm Do you have a Healthcare Power of Weight Reducing Technician? Yes June 27, 2024 11:03pm Name of Medical Power of Weight Reducing Technician Nimco [place] June 27, 2024 11:03pm Living Will Yes July 04, 2024 8:37pm Do you have a Healthcare Power of Weight Reducing Technician? Yes July 04, 2024 8:37pm Name of Medical Power of Weight Reducing Technician Nimco July 04, 2024 8:37pm Advance Directive Response Recorded Date/ Time Living Will Yes June 27, 2024 11:03pm Do you have a Healthcare Power of Weight Reducing Technician? Yes June 27, 2024 11:03pm Name of Medical Power of Weight Reducing Technician Nimco [place] June 27, 2024 11:03pm Living Will Yes July 04, 2024 10:55pm Do you have a Healthcare Power of Weight Reducing Technician? Yes July 04, 2024 10:55pm Name of Medical Power of Weight Reducing Technician Nimco July 04, 2024 10:55pm Chief Complaint and Reason for Visit Chief Complaint Lung cancer screenin g HX TOBACCO USE Reason for Visit Ascending aortic ane urysm [id number] Tobacco use disorder, continuous Chief Complaint Lung cancer screenin g HX TOBACCO USE AORTIC ANEURYSM/MOVED FROM 7/6 DYSPNEA Reason for Visit Ascending aortic ane urysm [id number] Tobacco use disorder, continuous Shortness of breath on exertion Ascending aortic aneurysm Essential hypertension Hyperlipidemia Chief Complaint AORTIC ANEURYSM/MOVE D FROM 7/6 DYSPNEA Shortness of breath HARDEEP Reason for Visit Shortness of breath on exertion Ascending aortic aneurysm Essential hypertension Hyperlipidemia Obstructive sleep apnea Tobacco use disorder, continuous Shortness of breath Chief Complaint AORTIC ANEURYSM/MOVE D FROM 7/6 DYSPNEA Shortness of breath HARDEEP HARDEEP,REPAP AUTO Reason for Visit Shortness of breath on exertion Ascending aortic aneurysm Essential hypertension Hyperlipidemia Obstructive sleep apnea Tobacco use disorder, continuous Shortness of breath Chief Complaint DYSPNEA Shortness of breath HARDEEP HARDEEP,REPAP AUTO SOB Shortness of breath SOB Reason for Visit Obstructive sleep ap mc Tobacco use disorder, continuous Shortness of breath Chief Complaint DYSPNEA Shortness of breath HARDEEP HARDEEP,REPAP AUTO SOB Shortness of breath SOB Shortness of breath Reason for Visit Obstructive sleep ap mc Tobacco use disorder, continuous Shortness of breath Chief Complaint Shortness of breath HARDEEP HARDEEP,REPAP AUTO SOB Shortness of breath SOB Shortness of breath 3 M FU FAILED AUTOPAP, HARDEEP Reason for Visit Obstructive sleep ap mc Tobacco use disorder, continuous Shortness of breath Obstructive sleep apnea COPD (chronic obstructive pulmonary disease) Tobacco use disorder, continuous Chief Complaint 3 M FU 3 M FU NICOTINE DEP Reason for Visit Oral thrush COPD (chronic obstructive pulmonary disease) Obstructive sleep apnea Oral thrush COPD (chronic obstructive pulmonary disease) Obstructive sleep apnea Smoking greater than 30 pack years Chief Complaint 3 M FU NICOTINE DEP 6 M FU AAA Amb Documentation Reason for Visit Oral thrush COPD (chronic obstructive pulmonary disease) Obstructive sleep apnea Smoking greater than 30 pack years Ascending aortic aneurysm Essential hypertension Hyperlipidemia Chief Complaint Admit Date 6 M FU 2024 8:46am 6 M FU May 27, 2024 8:1 9am 1 Y FU May 28, 2024 3:1 5pm Reason for Visit Admit Date COPD (chronic obstructive pulmonary dise ase) 2024 8:46am Obstructive sleep apnea May 08, 2 025 8:46am Smoking greater than 30 pack years Febru [email or web address] 8:46am COPD (chronic obstructive pulmonary dise ase) May 27, 2024 8:19am Essential hypertension May 27, 2024 8:19am Hyperlipidemia May 27, 2024 8:1 9am Obstructive sleep apnea May 27, 2024 8:19am Tobacco use disorder, continuous May 162024 8:19am Ascending aortic aneurysm May 28 3:15pm Essential hypertension May 28, 2024 3:15pm Hyperlipidemia May 28, 2024 3:1 5pm Smoking greater than 30 pack years May 28, 2024 3:15pm Chief Complaint Admit Date 6 M FU 2024 8:46am 6 M FU May 27, 2024 8:1 9am 1 Y FU May 28, 2024 3:1 5pm MULTIFOCAL PNA, AE COPD, DEHYDRATION & A pril 2024 10:02pm Reason for Visit Admit Date COPD (chronic obstructive pulmonary dise ase) 2024 8:46am Obstructive sleep apnea May 08, 2 025 8:46am Smoking greater than 30 pack years 2024 8:46am COPD (chronic obstructive pulmonary dise ase) May 27, 2024 8:19am Essential hypertension May 27, 2024 8:19am Hyperlipidemia May 27, 2024 8:1 9am Obstructive sleep apnea May 27, 2024 8:19am Tobacco use disorder, continuous May 162024 8:19am Ascending aortic aneurysm May 28 3:15pm Essential hypertension May 28, 2024 3:15pm Hyperlipidemia May 28, 2024 3:1 5pm Smoking greater than 30 pack years May 28, 2024 3:15pm Dehydration June 27, 2024 10: 02pm Junctional bradycardia June 27, 2024 10:02pm Multifocal pneumonia June 27, 2024 10 :02pm Pneumonia June 27, 2024 10: 02pm Respiratory insufficiency June 27 10:02pm Right bundle branch block (RBBB) June 162024 10:02pm Acute exacerbation of chroni c obstructive pulmonary disease June 27, 2024 10:02pm Essential hypertension June 27, 2024 10:02pm Smoking greater than 30 pack years June 27, 2024 10:02pm Chief Complaint Admit Date 6 M FU 2024 8:46am 6 M FU May 27, 2024 8:1 9am 1 Y FU May 28, 2024 3:1 5pm MULTIFOCAL PNA, AE COPD, DEHYDRATION & A pril 2024 10:02pm MULTIFOCAL PNA, AE COPD, DEHYDRATION & A pril 2024 6:37am MULTIFOCAL PNA, AE COPD, DEHYDRATION & A pril 2024 1:41pm MULTIFOCAL PNA, AE COPD, DEHYDRATION & A pril 2024 10:36am 1st day post implant check June 30, 025 8:42am MULTIFOCAL PNA, AE COPD, DEHYDRATION & A pril 2024 8:45am Reason for Visit Admit Date COPD (chronic obstructive pulmonary dise ase) 2024 8:46am Obstructive sleep apnea May 08 8:46am Smoking greater than 30 pack years 2024 8:46am COPD (chronic obstructive pulmonary dise ase) May 27, 2024 8:19am Essential hypertension May 27, 2024 8:19am Hyperlipidemia May 27, 2024 8:1 9am Obstructive sleep apnea May 27, 2024 8:19am Tobacco use disorder, continuous May 162024 8:19am Ascending aortic aneurysm May 28 3:15pm Essential hypertension May 28, 2024 3:15pm Hyperlipidemia May 28, 2024 3:1 5pm Smoking greater than 30 pack years May 28, 2024 3:15pm Complete heart block June 27, 2024 10 :02pm Dehydration June 27, 2024 10: 02pm Elevated troponin June 27, 2024 10: 02pm Junctional bradycardia June 27, 2024 10:02pm Multifocal pneumonia June 27, 2024 10 :02pm Pneumonia June 27, 2024 10: 02pm Respiratory insufficiency June 27 10:02pm Right bundle branch block (RBBB) June 162024 10:02pm Acute exacerbation of chroni c obstructive pulmonary disease June 27, 2024 10:02pm Ascending aortic aneurysm June 27 10:02pm COPD (chronic obstructive pulmonary dise ase) June 27, 2024 10:02pm Essential hypertension June 27, 2024 10:02pm Hyperlipidemia June 27, 2024 10: 02pm Smoking greater than 30 pack years June 27, 2024 10:02pm Chief Complaint Admit Date 6 M FU 2024 8:46am 6 M FU May 27, 2024 8:1 9am 1 Y FU May 28, 2024 3:1 5pm MULTIFOCAL PNA, AE COPD, DEHYDRATION & A pril 2024 10:02pm 3RD DEGREE BLOCK June 27, 2024 11: 12pm MULTIFOCAL PNA, AE COPD, DEHYDRATION & A pril 2024 6:37am MULTIFOCAL PNA, AE COPD, DEHYDRATION & A pril 2024 1:41pm MULTIFOCAL PNA, AE COPD, DEHYDRATION & A pril 2024 10:36am 1st day post implant check June 30, 8:42am MULTIFOCAL PNA, AE COPD, DEHYDRATION & A pril 2024 8:45am Pacer Check Remote June 30, 2024 9:0 0am MULTIFOCAL PNA, AE COPD, DEHYDRATION & A pril 2024 4:07pm PACEMAKER FAILURE July 04, 2024 10: 08pm Reason for Visit Admit Date COPD (chronic obstructive pulmonary dise ase) 2024 8:46am Obstructive sleep apnea May 08 8:46am Smoking greater than 30 pack years Febru nyla 2024 8:46am COPD (chronic obstructive pulmonary dise ase) May 27, 2024 8:19am Essential hypertension May 27, 2024 8:19am Hyperlipidemia May 27, 2024 8:1 9am Obstructive sleep apnea May 27, 2024 8:19am Tobacco use disorder, continuous May 162024 8:19am Ascending aortic aneurysm May 28 3:15pm Essential hypertension May 28, 2024 3:15pm Hyperlipidemia May 28, 2024 3:1 5pm Smoking greater than 30 pack years May 28, 2024 3:15pm Complete heart block June 27, 2024 10 :02pm Dehydration June 27, 2024 10: 02pm Elevated troponin June 27, 2024 10: 02pm Junctional bradycardia June 27, 2024 10:02pm Multifocal pneumonia June 27, 2024 10 :02pm Pneumonia June 27, 2024 10: 02pm Respiratory insufficiency June 27 10:02pm Right bundle branch block (RBBB) June 162024 10:02pm Acute exacerbation of chroni c obstructive pulmonary disease June 27, 2024 10:02pm Ascending aortic aneurysm June 27 10:02pm COPD (chronic obstructive pulmonary dise ase) June 27, 2024 10:02pm Essential hypertension June 27, 2024 10:02pm Hyperlipidemia June 27, 2024 10: 02pm Smoking greater than 30 pack years June 27, 2024 10:02pm Complete heart block June 30, 2024 8: 42am Presence of permanent cardiac pacemaker June 30, 2024 8:42am Bradycardia July 04, 2024 10: 08pm Leukocytosis July 04, 2024 10: 08pm Pacemaker failure July 04, 2024 10: 08pm Chief Complaint Admit Date 6 M FU 2024 8:46am 6 M FU May 27, 2024 8:1 9am 1 Y FU May 28, 2024 3:1 5pm MULTIFOCAL PNA, AE COPD, DEHYDRATION & A pril 2024 10:02pm 3RD DEGREE BLOCK June 27, 2024 11: 12pm MULTIFOCAL PNA, AE COPD, DEHYDRATION & A pril 2024 6:37am MULTIFOCAL PNA, AE COPD, DEHYDRATION & A pril 2024 1:41pm MULTIFOCAL PNA, AE COPD, DEHYDRATION & A pril 2024 10:36am 1st day post implant check June 30 025 8:42am MULTIFOCAL PNA, AE COPD, DEHYDRATION & A pril 2024 8:45am Pacer Check Remote June 30, 2024 9:0 0am MULTIFOCAL PNA, AE COPD, DEHYDRATION & A pril 2024 4:07pm PACEMAKER FAILURE July 04, 2024 10: 08pm PACEMAKER FAILURE July 05, 2024 9:1 9am PACEMAKER FAILURE July 05, 2024 1:3 2pm PACEMAKER FAILURE July 06, 2024 7:3 4am PACEMAKER FAILURE July 06, 2024 6:4 7pm INPatient s/p Lead repositioning June 172024 9:32am Reason for Visit Admit Date COPD (chronic obstructive pulmonary dise ase) 2024 8:46am Obstructive sleep apnea May 08 8:46am Smoking greater than 30 pack years Febru [email or web address] 8:46am COPD (chronic obstructive pulmonary dise ase) May 27, 2024 8:19am Essential hypertension May 27, 2024 8:19am Hyperlipidemia May 27, 2024 8:1 9am Obstructive sleep apnea May 27, 2024 8:19am Tobacco use disorder, continuous May 162024 8:19am Ascending aortic aneurysm May 28 3:15pm Essential hypertension May 28, 2024 3:15pm Hyperlipidemia May 28, 2024 3:1 5pm Smoking greater than 30 pack years May 28, 2024 3:15pm Dehydration June 27, 2024 10: 02pm Elevated troponin June 27, 2024 10: 02pm Junctional bradycardia June 27, 2024 10:02pm Multifocal pneumonia June 27, 2024 10 :02pm Pneumonia June 27, 2024 10: 02pm Respiratory insufficiency June 27 10:02pm Right bundle branch block (RBBB) June [id number] 10:02pm Acute exacerbation of chroni c obstructive pulmonary disease June 27, 2024 10:02pm Ascending aortic aneurysm June 27 10:02pm COPD (chronic obstructive pulmonary dise ase) June 27, 2024 10:02pm Essential hypertension June 27, 2024 10:02pm Hyperlipidemia June 27, 2024 10: 02pm Smoking greater than 30 pack years June 27, 2024 10:02pm Complete heart block June 27, 2024 10 :02pm Presence of permanent cardiac pacemaker June 30, 2024 8:42am Complete heart block June 30, 2024 8: 42am Bradycardia July 05, 2024 1:3 2pm Dislodgement of ventricular electrode lead of cardiac pacemaker July 05, 2024 1:32pm Leukocytosis July 05, 2024 1:3 2pm Pacemaker failure July 05, 2024 1:3 2pm Ascending aortic aneurysm July 05 1:32pm COPD (chronic obstructive pulmonary dise ase) July 05, 2024 1:32pm Essential hypertension July 05, 2024 1:32pm Dislodgement of ventricular electrode lead of cardiac pacemaker July 07, 2024 9:32am Presence of permanent cardiac pacemaker July 07, 2024 9:32am Chief Complaint Admit Date 6 M FU 2024 8:46am 6 M FU May 27, 2024 8:1 9am 1 Y FU May 28, 2024 3:1 5pm MULTIFOCAL PNA, AE COPD, DEHYDRATION & A pril 2024 10:02pm 3RD DEGREE BLOCK June 27, 2024 11: 12pm MULTIFOCAL PNA, AE COPD, DEHYDRATION & A pril 2024 6:37am MULTIFOCAL PNA, AE COPD, DEHYDRATION & A pril 2024 1:41pm MULTIFOCAL PNA, AE COPD, DEHYDRATION & A pril 2024 10:36am 1st day post implant check June 30, 2 025 8:42am MULTIFOCAL PNA, AE COPD, DEHYDRATION & A pril 2024 8:45am Pacer Check Remote June 30, 2024 9:0 0am MULTIFOCAL PNA, AE COPD, DEHYDRATION & A pril 2024 4:07pm PACEMAKER FAILURE July 04, 2024 10: 08pm PACEMAKER FAILURE July 05, 2024 9:1 9am PACEMAKER FAILURE July 05, 2024 1:3 2pm PACEMAKER FAILURE July 06, 2024 7:3 4am PACEMAKER FAILURE July 06, 2024 6:4 7pm Pacer Check Remote July 07, 2024 9:0 0am INPatient s/p Lead repositioning June [id number] 9:32am PACEMAKER FAILURE July 07, 2024 10: 17am Pacer Check Remote July 15, 2024 9:0 0am 1 wk s/p lead repositioning July 15, 2024 10:55am Acute July 15, 2024 12: 25pm EORDERS July 15, 2024 2:0 8pm 3 WK FU August 04, 2024 9:45a m Reason for Visit Admit Date COPD (chronic obstructive pulmonary dise ase) 2024 8:46am Obstructive sleep apnea May 08 8:46am Smoking greater than 30 pack years Febru [id number] 8:46am COPD (chronic obstructive pulmonary dise ase) May 27, 2024 8:19am Hyperlipidemia May 27, 2024 8:1 9am Obstructive sleep apnea May 27, 2024 8:19am Tobacco use disorder, continuous May [id number] 8:19am Essential hypertension May 27, 2024 8:19am Hyperlipidemia May 28, 2024 3:1 5pm Ascending aortic aneurysm May 28 3:15pm Essential hypertension May 28, 2024 3:15pm Smoking greater than 30 pack years May 28, 2024 3:15pm Right bundle branch block (RBBB) June 162024 10:02pm COPD (chronic obstructive pulmonary dise ase) June 27, 2024 10:02pm Hyperlipidemia June 27, 2024 10: 02pm Complete heart block June 27, 2024 10 :02pm Acute exacerbation of chroni c obstructive pulmonary disease June 27, 2024 10:02pm Ascending aortic aneurysm June 27 10:02pm Dehydration June 27, 2024 10: 02pm Elevated troponin June 27, 2024 10: 02pm Essential hypertension June 27, 2024 10:02pm Junctional bradycardia June 27, 2024 10:02pm Multifocal pneumonia June 27, 2024 10 :02pm Pneumonia June 27, 2024 10: 02pm Respiratory insufficiency June 27 10:02pm Smoking greater than 30 pack years June 27, 2024 10:02pm Complete heart block June 30, 2024 8: 42am Presence of permanent cardiac pacemaker June 30, 2024 8:42am COPD (chronic obstructive pulmonary dise ase) July 05, 2024 1:32pm Ascending aortic aneurysm July 05 1:32pm Bradycardia July 05, 2024 1:3 2pm Dislodgement of ventricular electrode lead of cardiac pacemaker Ericka 20th, 2025 1:32pm Essential hypertension July 05, 2024 1:32pm Leukocytosis July 05, 2024 1:3 2pm Pacemaker failure July 05, 2024 1:3 2pm Dislodgement of ventricular electrode lead of cardiac pacemaker July 07, 2024 9:32am Presence of permanent cardiac pacemaker July 07, 2024 9:32am COPD (chronic obstructive pulmonary dise ase) July 15, 2024 12:25pm Obstructive sleep apnea July 15, 2024 12:25pm Smoking greater than 30 pack years July 15, 2024 12:25pm COPD (chronic obstructive pulmonary dise ase) August 04, 2024 9:45am Obstructive sleep apnea August 04, 2024 9 :45am Medications Administered Section Active Administered Medications - up to 3 most recent administrations Medication Order MAR Action Action Date Dose Rate Site PHENYLephrine 2.5 % 1 Drop (AK-DILATE, AMALIA-SYNEPHRINE) 1 Drop, BOTH EYES, DIRECTED, Starting on Sat01/02/23 at 1630, Until Bailee 01/03/23 at 0429, Administer for dilation PROTECT FROM LIGHT Given 01/02/2023 4:30 PM EDT 1 Drop tropicamide 1 % 1 Drop (MYDRIACYL) 1 Drop, BOTH EYES, DIRECTED, Starting on Sat01/02/23 at 1630, Until Bailee 01/03/23 at 0429, Administer for dilation Given 01/02/2023 4:30 PM EDT 1 Drop Additional Source Comments (unrecognized sect ion and content) No Status Records FoundNo Status Records FoundNo Status Records FoundNo Status Records FoundNo Status Records FoundNo Status Records Found INFORMATION SOURCE (unrecogn ized section and content) DATE CREATED AUTHOR 06/25/2018 [facility] DATE CREATED AUTHOR AUTHOR'S ORGANIZ ATION 08/09/2018 [facility] ([place]) DATE CREATED AUTHOR AUTHOR'S ORGANIZ ATION 10/09/2019 [facility] DATE CREATED AUTHOR AUTHOR'S ORGANIZ ATION 06/05/2020 [facility] DATE CREATED AUTHOR AUTHOR'S ORGANIZ ATION 01/24/2024 [facility] DATE CREATED AUTHOR AUTHOR'S ORGANIZ ATION 08/17/2024 [facility] Goals (unrecognized section and content) Goals may be documented in a n alternate sectionGoals may be documented in an alternate sectionGoals may be documented in an alternate sectionGoals may be documented in an alternate sectionGoals may be documented in an alternate sectionGoals may be documented in an alternate sectionGoals may be documented in an alternate sectionGoals may be documented in an alternate sectionGoals may be documented in an alternate sectionGoals may be documented in an alternate sectionGoals may be documented in an alternate section Care Teams (unrecognized sec tion and content) Team Status: Active Member Role Status Dates Dr. Janes Jade MD Primary Care Provider Active Team Status: Inactive Member Role Status Dates Dr. Janes Jade MD Primary Care Provider, Referrin g Provider Active Gilma Dixon SYSTEM SUPPORT ANALYST, SYSTEM SUPPORT ANALYST-C Attending Provider Active Team Status: Inactive Member Role Status Dates Dr. Janes Jade MD Primary Care Provider Active Gilma Dixon SYSTEM SUPPORT ANALYST, SYSTEM SUPPORT ANALYST-C Attending Provider, Referrin g Provider Active Team Status: Inactive Member Role Status Dates Dr. Janes Jade MD Primary Care Provider, Referrin g Provider Active Josy Patrick SYSTEM SUPPORT ANALYST, SYSTEM SUPPORT ANALYST-C Attending Provider Active Team Status: Active Member Role Status Dates Dr. Janes Jade MD Primary Care Provider Active Josy Patrick SYSTEM SUPPORT ANALYST, SYSTEM SUPPORT ANALYST-C Attending Provider Active Team Status: Inactive Member Role Status Dates Dr. Janes Jade MD Primary Care Provider Active Josy Patrick SYSTEM SUPPORT ANALYST, SYSTEM SUPPORT ANALYST-C Attending Provider, Referring Meagan ta Active Certified Family Mediator Relationship Specialty Start Date End Date Janes Jade MD PCP - General Family Medicine 02/24/13 Certified Family Mediator Relationship Specialty Start Date End Date Lucia Trimble MD [address] [facility] [place] [address] PCP - General Internal Medicine 01/22/24 Team Status: Active Member Role Status Dates Dr. Lucia Trimble MD Primary Care Provider Active Team Status: Inactive Member Role Status Dates Dr. Lucia Trimble MD Primary Care Provider Active Start: 2024 End: 2024 Dr. Lucia Trimble MD Referring Provider Active Start: 2024 End: 2024 Gilma Dixon SYSTEM SUPPORT ANALYST, SYSTEM SUPPORT ANALYST-C Attending Provider Active Start: 2024 End: 2024 Team Status: Inactive Member Role Status Dates Dr. Lucia Trimble MD Primary Care Provider Active Start: May 27, 2024 End: May 27, 2024 Dr. Lucia Trimble MD Referring Provider Active Start: May 27, 2024 End: May 27, 2024 Elieser REID PA Attending Provider Active St art: May 27, 2024 End: May 27, 2024 Team Status: Inactive Member Role Status Dates Dr. Lucia Trimble MD Primary Care Provider Active Start: May 27, 2024 End: May 27, 2024 Elieser Wni PA PA Attending Provider Active St art: May 27, 2024 End: May 27, 2024 Elieser REID PA Referring Provider Active St art: May 27, 2024 End: May 27, 2024 Team Status: Inactive Member Role Status Dates Dr. Lucia Trimble MD Primary Care Provider Active Start: May 28, 2024 End: May 28, 2024 Dr. Lucia Trimble MD Referring Provider Active Start: May 28, 2024 End: May 28, 2024 Wilian James SYSTEM SUPPORT ANALYST, SYSTEM SUPPORT ANALYST-C Attending Provider Active S tart: May 28, 2024 End: May 28, 2024 Team Status: Active Member Role Status Dates Dr. Lucia Trimble MD Primary Care Provider Active Start: June 27, 2024 Dr. Valente Beckford MD Emergency Provider Active S tart: June 27, 2024 Dr. Janes Jose DO Admit Provider Active Start: June 27, 2024 Dr. Janes Jose DO Attending Provider Active Start: June 27, 2024 Team Status: Inactive Member Role Status Dates Dr. Lucia Trimble MD Primary Care Provider Active Start: June 27, 2024 End: June 30, 2024 Dr. Valente Beckford MD Emergency Provider Active S tart: June 27, 2024 End: June 30, 2024 Dr. Janes Jose DO Admit Provider Active Start: June 27, 2024 End: June 30, 2024 Dr. Janes Jose DO Other Provider Active Start: June 27, 2024 End: June 30, 2024 Dr. Andriy Macdonald MD Other Provider Active Star t: June 27, 2024 End: June 30, 2024 Dr. Alberto Gupta MD Attending Provider Active Start: June 27, 2024 End: June 30, 2024 Dr. April Napoles DO Other Provider Active Start : June 27, 2024 End: June 30, 2024 Team Status: Active Member Role Status Dates Dr. Lucia Trimble MD Primary Care Provider Active Start: June 28, 2024 Dr. Valente Beckford MD Emergency Provider Active S tart: June 28, 2024 Dr. Janes Jose DO Admit Provider Active Start: June 28, 2024 Dr. Janes Jose DO Other Provider Active Start: June 28, 2024 Dr. April Napoles DO Attending Provider Active S tart: June 28, 2024 Dr. April Napoles DO Other Provider Active Start : June 28, 2024 Dr. Andriy Macdonald MD Other Provider Active Star t: June 28, 2024 Team Status: Active Member Role Status Dates Dr. Lucia Trimble MD Primary Care Provider Active Start: June 28, 2024 Dr. Valente Beckford MD Emergency Provider Active S tart: June 28, 2024 Dr. Janes Jose DO Admit Provider Active Start: June 28, 2024 Dr. Janes Jose DO Other Provider Active Start: June 28, 2024 Dr. April Napoles DO Other Provider Active Start : June 28, 2024 Dr. Andriy Macdonald MD Attending Provider Active Start: June 28, 2024 Dr. Andriy Macdonald MD Other Provider Active Star t: June 28, 2024 Team Status: Active Member Role Status Dates Dr. Lucia Trimble MD Primary Care Provider Active Start: June 29, 2024 Dr. Fazal Pal MD Attending Provider Active S tart: June 29, 2024 Team Status: Active Member Role Status Dates Dr. Lucia Trimble MD Primary Care Provider Active Start: June 29, 2024 Dr. Valente Beckford MD Emergency Provider Active S tart: June 29, 2024 Dr. Janes Jose DO Admit Provider Active Start: June 29, 2024 Dr. Janes Jose DO Other Provider Active Start: June 29, 2024 Dr. Andriy Macdonald MD Other Provider Active Star t: June 29, 2024 Dr. Alberto Gupta MD Attending Provider Active Start: June 29, 2024 Dr. Alberto Gupta MD Other Provider Active Start: June 29, 2024 Dr. April Napoles DO Other Provider Active Start : June 29, 2024 Team Status: Active Member Role Status Dates Dr. Lucia Trimble MD Primary Care Provider Active Start: June 30, 2024 Dr. Lucia Trimble MD Referring Provider Active Start: June 30, 2024 Sherin Boone Attending Provider Active Start: A pril 2024 Team Status: Active Member Role Status Dates Dr. Lucia Trimble MD Primary Care Provider Active Start: June 30, 2024 Dr. Valente Beckford MD Emergency Provider Active S tart: June 30, 2024 Dr. Janes Jose DO Admit Provider Active Start: June 30, 2024 Dr. Janes Jose DO Other Provider Active Start: June 30, 2024 Dr. Andriy Macdonald MD Other Provider Active Star t: June 30, 2024 Dr. Alberto Gupta MD Other Provider Active Start: June 30, 2024 Dr. April Napoles DO Other Provider Active Start : June 30, 2024 Dr. Fazal Pla MD Attending Provider Active S tart: June 30, 2024 Team Status: Active Member Role Status Dates Dr. Lucia Trimble MD Primary Care Provider Active Start: June 27, 2024 End: June 27, 2024 Dr. Peng Velarde MD Attending Provider Active Start: June 27, 2024 End: June 27, 2024 Dr. Janes Jose DO Referring Provider Active Start: June 27, 2024 End: June 27, 2024 Team Status: Inactive Member Role Status Dates Dr. Lucia Trimble MD Primary Care Provider Active Start: June 30, 2024 End: June 30, 2024 Dr. Lucia Trimble MD Referring Provider Active Start: June 30, 2024 End: June 30, 2024 Sherin Boone Attending Provider Active Start: A [id number] End: June 30, 2024 Team Status: Inactive Member Role Status Dates Dr. Lucia Trimble MD Primary Care Provider Active Start: June 30, 2024 End: June 30, 2024 Dr. Fazal Pal MD Attending Provider Active S tart: June 30, 2024 End: June 30, 2024 Team Status: Active Member Role Status Dates Dr. Lucia Trimble MD Primary Care Provider Active Start: June 30, 2024 Dr. Valente Beckford MD Emergency Provider Active S tart: June 30, 2024 Dr. Janes Jose , DO Admit Provider Active Start: June 30, 2024 Dr. Janes Jose , DO Other Provider Active Start: June 30, 2024 Dr. Andriy Macdonald MD Other Provider Active Star t: June 30, 2024 Dr. Alberto Gupta MD Attending Provider Active Start: June 30, 2024 Dr. Alberto Gupta MD Other Provider Active Start: June 30, 2024 Dr. April Napoles , Other Provider Active Start : June 30, 2024 Team Status: Active Member Role Status Dates Dr. Lucia Trimble MD Primary Care Provider Active Start: July 04, 2024 Dr. Ananda Garner , DO Emergency Provider Active Start : July 04, 2024 Dr. Marcial Camacho , DO Admit Provider Active Start: July 04, 2024 Dr. Marcial Camacho , Attending Provider Active Start: July 04, 2024 Dr. Marcial Camacho , Referring Provider Active Start: July 04, 2024 Team Status: Active Member Role Status Dates Dr. Lucia Trimble MD Primary Care Provider Active Start: July 04, 2024 Dr. Ananda Garner , DO Emergency Provider Active Start : July 04, 2024 Dr. Marcial Camacho , DO Admit Provider Active Start: July 04, 2024 Dr. Marcial Camacho , DO Attending Provider Active Start: July 04, 2024 Dr. Marcial Camacho , DO Referring Provider Active Start: July 04, 2024 Dr. Marcial Camacho , DO Other Provider Active Start: July 04, 2024 Team Status: Active Member Role Status Dates Dr. Lucia Trimble MD Primary Care Provider Active Start: July 05, 2024 Dr. Ananda Garner , DO Emergency Provider Active Start : July 05, 2024 Dr. Marcial Camacho , DO Admit Provider Active Start: July 05, 2024 Dr. Marcial Camacho DO Referring Provider Active Start: July 05, 2024 Dr. Marcial Camacho DO Other Provider Active Start: July 05, 2024 Dr. Peng Velarde MD Attending Provider Active Start: July 05, 2024 Dr. Peng Velarde MD Other Provider Active St art: July 05, 2024 Dr. Camilla Anton MD Other Provider Active St art: July 05, 2024 Team Status: Inactive Member Role Status Dates Dr. Lucia Trimble MD Primary Care Provider Active Start: July 05, 2024 End: July 07, 2024 Dr. Ananda Garner , DO Emergency Provider Active Start : July 05, 2024 End: July 07, 2024 Dr. Marcial Camacho DO Admit Provider Active Start: July 05, 2024 End: July 07, 2024 Dr. Marcial Camacho DO Referring Provider Active Start: July 05, 2024 End: July 07, 2024 Dr. Marcial Camacho DO Other Provider Active Start: July 05, 2024 End: July 07, 2024 Dr. Peng Velarde MD Other Provider Active St art: July 05, 2024 End: July 07, 2024 Dr. Hardik Briseno DO Attending Provider Active Start: July 05, 2024 End: July 07, 2024 Dr. Camilla Anton MD Other Provider Active St art: July 05, 2024 End: July 07, 2024 Team Status: Active Member Role Status Dates Dr. Lucia Trimble MD Primary Care Provider Active Start: July 06, 2024 Dr. Ananda Garner , DO Emergency Provider Active Start : July 06, 2024 Dr. Marcial Camacho DO Admit Provider Active Start: July 06, 2024 Dr. Marcial Camacho DO Referring Provider Active Start: July 06, 2024 Dr. Marcial Camacho DO Other Provider Active Start: July 06, 2024 Dr. Peng Velarde MD Other Provider Active St art: July 06, 2024 Dr. Hardik Tereletsky , DO Other Provider Active S tart: July 06, 2024 Dr. Camilla Anton MD Other Provider Active St art: July 06, 2024 Dr. Fazal Pal MD Attending Provider Active S tart: July 06, 2024 Team Status: Active Member Role Status Dates Dr. Lucia Trimble MD Primary Care Provider Active Start: July 06, 2024 Dr. Ananda Garner , DO Emergency Provider Active Start : July 06, 2024 Dr. Marcial Camacho , DO Admit Provider Active Start: July 06, 2024 Dr. Marcial Camacho , Referring Provider Active Start: July 06, 2024 Dr. Marcial Camacho , DO Other Provider Active Start: July 06, 2024 Dr. Peng Velarde MD Other Provider Active St art: July 06, 2024 Dr. Hardik Briseno , DO Attending Provider Active Start: July 06, 2024 Dr. Hardik Briseno , DO Other Provider Active S tart: July 06, 2024 Dr. Camilla Anton MD Other Provider Active St art: July 06, 2024 Team Status: Active Member Role Status Dates Dr. Lucia Trimble MD Primary Care Provider Active Start: July 07, 2024 Dr. Lucia Trimble MD Referring Provider Active Start: July 07, 2024 Sherin Boone Attending Provider Active Start: A pril 2024 Team Status: Active Member Role Status Dates Dr. Lucia Trimble MD Primary Care Provider Active Start: July 04, 2024 Dr. Ananda Garner , DO Emergency Provider Active Start : July 04, 2024 Dr. Marcial Camacho , DO Admit Provider Active Start: July 04, 2024 Dr. Marcial Camacho , Attending Provider Active Start: July 04, 2024 Dr. Marcial Camacho , DO Other Provider Active Start: July 04, 2024 Team Status: Active Member Role Status Dates Dr. Lucia Trimble MD Primary Care Provider Active Start: July 06, 2024 Dr. Ananda Garner , DO Emergency Provider Active Start : July 06, 2024 Dr. Marcial Camacho , DO Admit Provider Active Start: July 06, 2024 Dr. Marcial Camacho , DO Other Provider Active Start: July 06, 2024 Dr. Peng Velarde MD Other Provider Active St art: July 06, 2024 Dr. Hardik Briseno DO Attending Provider Active Start: July 06, 2024 Dr. Hardik Briseno DO Other Provider Active S tart: July 06, 2024 Dr. Camilla Anton MD Other Provider Active St art: July 06, 2024 Team Status: Inactive Member Role Status Dates Dr. Lucia Trimble MD Primary Care Provider Active Start: July 07, 2024 End: July 07, 2024 Dr. Fazal Pal MD Attending Provider Active S tart: July 07, 2024 End: July 07, 2024 Team Status: Inactive Member Role Status Dates Dr. Lucia Trimble MD Primary Care Provider Active Start: July 07, 2024 End: July 07, 2024 Dr. Lucia Trimble MD Referring Provider Active Start: July 07, 2024 End: July 07, 2024 Dr. Fazal Pal MD Attending Provider Active S tart: July 07, 2024 End: July 07, 2024 Team Status: Active Member Role Status Dates Dr. Lucia Trimble MD Primary Care Provider Active Start: July 07, 2024 Dr. Ananda Garner DO Emergency Provider Active Start : July 07, 2024 Dr. Marcial Camacho DO Admit Provider Active Start: July 07, 2024 Dr. Marcial Camacho DO Other Provider Active Start: July 07, 2024 Dr. Peng Velarde MD Other Provider Active St art: July 07, 2024 Dr. Hardik Briseno DO Attending Provider Active Start: July 07, 2024 Dr. Hardik Briseno DO Other Provider Active S tart: July 07, 2024 Dr. Camilla Anton MD Other Provider Active St art: July 07, 2024 Team Status: Inactive Member Role Status Dates Dr. Lucia Trimble MD Primary Care Provider Active Start: July 15, 2024 End: July 15, 2024 Dr. Fazal Pal MD Attending Provider Active S tart: July 15, 2024 End: July 15, 2024 Team Status: Inactive Member Role Status Dates Dr. Lucia Trimble MD Primary Care Provider Active Start: July 15, 2024 End: July 15, 2024 Dr. Lucia Trimble MD Referring Provider Active Start: July 15, 2024 End: July 15, 2024 Dr. Fazal Pal MD Attending Provider Active S tart: July 15, 2024 End: July 15, 2024 Team Status: Inactive Member Role Status Dates Dr. Lucia Trimble MD Primary Care Provider Active Start: July 15, 2024 End: July 15, 2024 Dr. Lucia Trimble MD Referring Provider Active Start: July 15, 2024 End: July 15, 2024 VANESSA Laureano Attending Provider Active Start: July 15, 2024 End: July 15, 2024 Team Status: Inactive Member Role Status Dates Dr. Lucia Trimble MD Primary Care Provider Active Start: July 15, 2024 End: July 15, 2024 VANESSA Laureano Attending Provider Active Start: July 15, 2024 End: July 15, 2024 VANESSA Laureano Referring Provider Active Start: July 15, 2024 End: July 15, 2024 Team Status: Inactive Member Role Status Dates Dr. Lucia Trimble MD Primary Care Provider Active Start: August 04, 2024 End: August 04, 2024 Dr. Lucia Trimble MD Referring Provider Active Start: August 04, 2024 End: August 04, 2024 VANESSA Laureano Attending Provider Active Start: August 04, 2024 End: August 04, 2024 Source Comments (unrecognize d section and content) In the event this informatio n is protected by the Federal Confidentiality of Alcohol and Drug Abuse Patient Records regulations: The Federal rules restrict any use of the information to criminally investigate or prosecute any alcohol or drug abuse patient.[facility] the event this information is protected by the Federal Confidentiality of Alcohol and Drug Abuse Patient Records regulations: The Federal rules restrict any use of the information to criminally investigate or prosecute any alcohol or drug abuse patient.[facility] the event this information is protected by the Federal Confidentiality of Alcohol and Drug Abuse Patient Records regulations: The Federal rules restrict any use of the information to criminally investigate or prosecute any alcohol or drug abuse patient.[facility] Reason for Visit (unrecogniz ed section and content) Reason Comments 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 This clinical summary was aggregated from multiple sources. Caution should be exercised in using it in the provision of clinical care. This summary normalizes information from multiple sources, and as a consequence, information in this document may materially change the coding, format and clinical context of patient data. In addition, data may be omitted in some cases. CLINICAL DECISIONS SHOULD BE BASED ON THE PRIMARY CLINICAL RECORDS. [facility]. provides no warranty or guarantee of the accuracy or completeness of information in this document.
== END | disposition home or self-care (01) ==
PROVIDERS: PCP Internal Medicine; Referring Provider Nurse Practitioner Family; Visit Provider Nurse Practitioner Family
DX: J44.9 Chronic obstructive pulmonary disease, unspecified (principal)
CPT/HCPCS: 94060; 94726; 94729

== ENCOUNTER → 2024-09-28 | Outpatient (CLI) | payer MEDICARE, OTHER, SELFPAY ==
--- NOTE | 2024-09-28 17:26 | CT_ITS ---
EXAM: CT Chest, Lung Cancer Screening Without Intravenous Contrast CLINICAL INDICATION: SMOKER TECHNIQUE: Axial computed tomography images of the chest without intravenous contrast using low dose (LDCT) lung cancer screening protocol. This CT exam was performed using one or more of the following dose reduction techniques: automated exposure control, adjustment of the mA and/or kV according to patient size, and/or use of iterative reconstruction technique. COMPARISON: CT Lung Cancer Screening dated 09/23/2023 FINDINGS: LUNGS AND PLEURAL SPACES: Lung emphysema with bilateral apical scarring, some of which has a nodular configuration, stable. Mild degree of pleural thickening of the lung bases. No consolidation. No significant effusion. No pneumothorax. No new suspicious pulmonary nodules. HEART: Unremarkable. No cardiomegaly. No significant pericardial effusion. No significant coronary artery calcifications. BONES/JOINTS: Unremarkable. No acute fracture. SOFT TISSUES: Unremarkable. VASCULATURE: Unremarkable. No thoracic aortic aneurysm. LYMPH NODES: Unremarkable. No enlarged lymph nodes. CT/Low Dose CT Lung Screening IMPRESSION: LUNG-RADS 2: Benign. Continue low-dose CT screening of the chest in 12 months is recommended. Reading Location: [facility]
== END | disposition home or self-care (01) ==
LOC: CT 17:18
PROVIDERS: PCP Internal Medicine; Referring Provider Nurse Practitioner Acute Care; Visit Provider Nurse Practitioner Acute Care
DX: F17.210 Nicotine dependence, cigarettes, uncomplicated (principal)
CPT/HCPCS: 71271